=== PATIENT | female | born 1930 | race Caucasian/White ===

== ENCOUNTER 2016-12-18 13:53 | Inpatient (IN) | payer MEDICARE, OTHER ==
[~2016-12-18] VITALS: Ht 154.9 cm; Wt 77.5 kg
--- NOTE | 2016-12-18 14:04 | ERA ---
ER Documentation Chief Complaint Date/Time DATE: 12/18/16 TIME: 14:04 Chief Complaint BROUGHT IN VIA PRIVATE AMBULANCE FROM SNF DUE TO LOW HGB HPI The patient is a 86-year-old female, presenting to the ER because of low hemoglobin. She is unable to provide history, the history is obtained from lock tender, fdc notes, the daughter who later came to the ER. She has history of bloody stool from the fdc. She does not appear to have any chest pain, dyspnea, abdominal pain, vomiting Past medical history: Chronic respiratory failure, dysphagia, history of CVA, dyslipidemia, hypertension, hypothyroidism, atrial fibrillation Past surgical history: Tracheostomy, G-tube ROS All systems reviewed and are negative except as per history of present illness. Medications Home Meds Reported Medications Lansoprazole* (Lansoprazole*) 30 Mg Capsule.dr, 30 MG GTB DAILY, CAP 12/18/16 Chlorhexidine Gluconate (Peridex) 473 Ml Mouthwash, 15 ML MM Q12H, BOTTLE 12/18/16 Acetaminophen* (Acetaminophen*) 650 Mg Tablet, 650 MG GTB Q6H Y for MILD DISCOMFORT, #30 TAB 12/18/16 Bisacodyl* (Bisacodyl*) 10 Mg Supp, 10 MG KY Q2D, SUPP 12/18/16 Sod Phosphate/Sod Biphosphate* (Fleet* Enema Pediatric) 66.6 Ml Soln, 66.6 ML KY Q3D Y for CONSTIPATION, ENEMA 12/18/16 Labetalol Hcl* (Labetalol Hcl*) 100 Mg Tablet, 50 MG GTB Q6H, TAB 12/18/16 Metoprolol Tartrate* (Lopressor*) 50 Mg Tab, 50 MG GTB BID, #60 TAB 12/18/16 Magnesium Hydroxide* (Milk Of Magnesia*) 400 Mg/5 Ml Oral.susp, 30 ML GTB DAILY , ML 12/18/16 Losartan Potassium* (Losartan Potassium*) 100 Mg Tablet, 100 MG GTB DAILY, TAB 12/18/16 Levothyroxine Sodium* (Levothyroxine Sodium*) 125 Mcg Tablet, 125 MCG GTB BEFORE BREAKFAST, #30 TAB 12/18/16 Furosemide* (Furosemide*) 40 Mg Tablet, 40 MG GTB BID, TAB 12/18/16 Diltiazem Hcl* (Cardizem SR*) 60 Mg Capsr, 60 MG PO BID, #60 CAP 12/18/16 Digoxin* (Digox*) 125 Mcg Tablet, 0.125 MG GTB Q48H, TAB 12/18/16 Calcium Carbonate (NATURAL CALCIUM) 500 Mg Tablet, 500 MG GTB Q24, TAB 12/18/16 Atorvastatin* (Atorvastatin*) 40 Mg Tablet, 40 MG GTB QHS, #30 TAB 12/18/16 Apixaban* (Eliquis*) 5 Mg Tablet, 5 MG GTB BID, TAB 12/18/16 Ondansetron Hcl* (Zofran*) 4 Mg Tab, 4 MG GTB Q6H Y for NAUSEA AND OR VOMITING, TAB 12/18/16 Spironolactone* (Aldactone*) 25 Mg Tablet, 25 MG GTB BID, #60 TAB 12/18/16 Allergies Allergies: Coded Allergies: lovastatin (Verified Allergy, Unknown, 12/18/16) midazolam (Verified Allergy, Unknown, 12/18/16) zolpidem (Verified Allergy, Unknown, 12/18/16) Physical Exam Vitals Vital Signs Date Time Temp Pulse Resp B/P Pulse Ox O2 Delivery O2 Flow Rate FiO2 12/18/16 17:37 79 12 99 40 12/18/16 16:42 98.9 84 18 154/76 99 Mechanical Ventilator 12/18/16 16:02 80 17 99 40 12/18/16 14:40 40 12/18/16 14:00 83 12 97 50 12/18/16 13:54 99.2 89 18 146/78 97 Physical Exam Const: No acute distress. Head: Atraumatic. Eyes: Normal Conjunctiva. ENT: Normal External Ears, Nose and Mouth. Neck: Full range of motion. No meningismus. Resp: Clear to auscultation anteriorly and laterally Cardio: Irregularly irregular Abd: Soft, non distended, normal bowel sounds, non tender. G-tube Skin: No petechiae or rashes. Back: No midline or flank tenderness. Ext: No cyanosis, or edema. Neur: Unable to perform due to condition Psych: Unable to perform due to condition Result Diagram: 12/18/16 1415 12/18/16 1415 Results 24 hrs Laboratory Tests Test 12/18/16 14:05 12/18/16 14:15 Arterial Blood HCO3 27.3mmol/L Arterial Blood Base Excess 3.4mmol/L Arterial Blood Oxygen Saturation 98.0mmHG Brant Test ACCEPTAB Arterial Blood Gas Puncture Site Right Radial Arterial Blood Carboxyhemoglobin 0% Arterial Blood Date Drawn 12/18/2016 2:18:19 PM Arterial Blood Methemoglobin 0.3% Arterial Blood pCO2 (Temp correct) 38.7mmhg Arterial Blood pH (Temp corrected) 7.466 Arterial Blood pO2 (Temp corrected) 111.0mmHG Blood Gas A-a O2 Differential 202.0mmHg Blood Gas Actual Respiration Rate 12 Blood Gas Low PEEP Setting 5.0cmH2O Blood Gas Modality VENT - AC Blood Gas Notified Time 12/18/2016 2:35:01 PM Blood Gas Notified Whom EARL WILKINSON Blood Gas Respiration Rate 12.0 Blood Gas Specimen Source Blood arterial Blood Gas Temperature 37.0C Blood Gas Tidal Volume 450.0mL FiO2 50.0% Oxyhemoglobin Percent 97.7% Total Hemoglobin 9.4g/dl Activated Partial Thromboplast Time 42.6Sec Alanine Aminotransferase (ALT/SGPT) 25IU/L Albumin 3.5g/dl Albumin/Globulin Ratio 0.81 Alkaline Phosphatase 96IU/L Anion Gap 15 Aspartate Amino Transf (AST/SGOT) 28IU/L Basophils # 0.010^3/ul Basophils % 0.2% Blood Urea Nitrogen 43mg/dl Calcium Level 9.0mg/dl Carbon Dioxide Level 30mmol/L Chloride Level 96mmol/L Creatinine 0.70mg/dl Direct Bilirubin 0.00mg/dl Eosinophils # 0.210^3/ul Eosinophils % 1.4% Globulin 4.30g/dl Glucose Level 105mg/dl Hematocrit 24.1% Hemoglobin 7.6g/dl INR International Normalized Ratio 2.43 Indirect Bilirubin 0.7mg/dl Lymphocytes # 1.110^3/ul Lymphocytes % 8.2% Mean Corpuscular Hemoglobin 28.8pg Mean Corpuscular Hemoglobin Concent 31.5g/dl Mean Corpuscular Volume 91.3fl Mean Platelet Volume 10.1fl Monocytes # 0.410^3/ul Monocytes % 3.2% Neutrophils # 11.310^3/ul Neutrophils % 86.5% Nucleated Red Blood Cells # 0.010^3/ul Nucleated Red Blood Cells % 0.2/100WBC Platelet Count 77360^3/UL Potassium Level 5.2mmol/L Prothrombin Time 26.7Sec Prothrombin Time Ratio 2.1 Red Blood Count 2.6410^6/ul Red Cell Distribution Width 23.9% Sodium Level 136mmol/L Total Bilirubin 0.7mg/dl Total Protein 7.8g/dl White Blood Count 13.110^3/ul Procedures/[place] [id number] Radiology Main Line: [phone] DIAGNOSTIC IMAGING REPORT Patient: DIVINA WHITE : 1930 Age: 86 Sex: F MR #: [id number] DOS: 12/18/16 0000 Ordering MD: JESSICA SALINAS MD Location: E/R Room/Bed: PROCEDURE: XR Chest. CLINICAL INDICATION: cough TECHNIQUE: Single frontal chest x-ray. COMPARISON: 11/25/2016 FINDINGS: Tracheostomy tube is in place unchanged. . Cardiomegaly with hilar vascular congestion and mild perihilar and basilar edema has slightly worsened. Possible small bilateral pleural effusions are present.. Calcific atherosclerosis of the aorta is present.. The osseous structures are intact. IMPRESSION: Cardiomegaly with slightly worsened congestive heart failure and mild edema. Small bilateral pleural effusions. Tracheostomy tube in place.. RPTAT: VV .Nader Yun MD, MD Date Time Electronically viewed and signed by .Nader Yun MD, MD on 12/18/2016 15:17 .L/ CC: JESSICA SALINAS MD EKG: Read by emergency physician Rate/Rhythm: Atrial fibrillation 93 beats/min QRS, ST, T-waves: No ST elevation, no T inversion, nonspecific ST and T abnormality Impression: Abnormal EKG MEDICAL MAKING DECISION: The patient is a 86-year-old female, presenting with acute GI bleed. She was treated with 2 units of packed red blood cell. The differential diagnoses considered include but are not limited to gastritis, peptic ulcer disease, esophageal varices, Alicia-Torers tear., carcinoma, polyp , hemorrhoid, fissure, diverticulosis, angiodysplasia. Departure Diagnosis: Primary Impression: Acute GI bleeding Condition: Stable Comments I discussed the findings with the patient. I discussed the patient with her physician Dr. Sanches. who was made aware of the lab, the treatment, the patient condition. The patient is admitted to [facility] at 4 PM JESSICA SALINAS MD Dec 18, 2016 14:04
[2016-12-18 14:32] LABS: ADD SCAN DIFF NO
[2016-12-18 14:35] LABS: Allen Test ACCEPTAB; Arterial Base Excess 3.4 mmol/L (-3.0-3); Arterial COHb 0 % (0.0-3.0); Arterial Fraction of Oxyhgb 97.7 % (93.0-99.0); Arterial HCO3 27.3 mmol/L (22.0-26.0); Arterial MetHb 0.3 % (0.0-1.5); Arterial Total Hemglobin 9.4 g/dl (12.0-18.0); MODE VENT - AC
[2016-12-18 14:36] LABS: ABNORMAL IP MESSAGE 1; BASOPHILS % 0.2 % (0.0-2.0); EOSINOPHILS # 0.2 10^3/ul (0.0-0.5); EOSINOPHILS % 1.4 % (0.0-7.0); HEMATOCRIT 24.1 % (37.0-47.0); HEMOGLOBIN 7.6 g/dl (12.0-16.0); LYMPHOCYTES # 1.1 10^3/ul (0.8-2.9); LYMPHOCYTES % 8.2 % (15.0-51.0); MEAN CORPUSCULAR HEMOGLOBIN 28.8 pg (29.0-33.0); MEAN CORPUSCULAR HGB CONC 31.5 g/dl (32.0-37.0); MEAN CORPUSCULAR VOLUME 91.3 fl (82.0-101.0); MEAN PLATELET VOLUME 10.1 fl (7.4-10.4); MONOCYTE # 0.4 10^3/ul (0.3-0.9); MONOCYTES % 3.2 % (0.0-11.0); NEUTROPHIL # 11.3 10^3/ul (1.6-7.5); NEUTROPHILS % 86.5 % (39.0-77.0); NUCLEATED RED BLOOD CELLS% 0.2 /100WBC (0.0-0.0); PLATELET COUNT 238 10^3/UL (140-415); RED BLOOD COUNT 2.64 10^6/ul (4.20-5.40); RED CELL DISTRIBUTION WIDTH 23.9 % (11.5-14.5); WHITE BLOOD COUNT 13.1 10^3/ul (4.8-10.8)
[2016-12-18 14:44] LABS: ALBUMIN 3.5 g/dl (3.3-4.9); INR 2.43; PROTIME 26.7 Sec (12.2-14.2); PT RATIO 2.1
[2016-12-18 14:45] LABS: PARTIAL THROMBOPLASTIN TIME 42.6 Sec (25.0-35.0); POTASSIUM 5.2 mmol/L (3.5-5.1)
[2016-12-18 14:47] LABS: ALBUMIN/GLOBULIN RATIO 0.81; BILIRUBIN,INDIRECT 0.7 mg/dl (0-1.1); BILIRUBIN,TOTAL 0.7 mg/dl (0.2-1.3); CREATININE 0.7 mg/dl (0.44-1.00); TOTAL PROTEIN 7.8 g/dl (6.1-8.1)
--- NOTE | 2016-12-18 15:17 | RADRPT ---
PROCEDURE: XR Chest. CLINICAL INDICATION: cough TECHNIQUE: Single frontal chest x-ray. COMPARISON: 11/25/2016 FINDINGS: Tracheostomy tube is in place unchanged. . Cardiomegaly with hilar vascular congestion and mild per ihilar and basilar edema has slightly worsened. Possible small bilateral pleural effusions are pres ent.. Calcific atherosclerosis of the aorta is present.. The osseous structures are intact. IMPRESSION: Cardiomegaly with slightly worsened congestive heart failure and mild edema. Small bilateral pleural effusions. Tracheostomy tube in place.. RPTAT: VV .Nader Yun MD, Date Time Electronically viewed and signed by .Nader Yun MD, on 12/18/2016 15:17 .L/
[2016-12-18] MEDS ORDERED: SPIR25TA GTB (16:13)
[2016-12-18] MEDS ORDERED: ONDA-43 GTB (16:13)
[2016-12-18] MEDS ORDERED: APIX5TAB GTB (16:14)
[2016-12-18] MEDS ORDERED: ATOR40TA68 GTB (16:15)
[2016-12-18] MEDS ORDERED: CALC500T79 GTB (16:19)
[2016-12-18] MEDS ORDERED: DIGO125T19 GTB (16:21)
[2016-12-18] MEDS ORDERED: CARSR60 PO (16:22)
[2016-12-18] MEDS ORDERED: FURO40TA4 GTB (16:23)
[2016-12-18] MEDS ORDERED: LEVO125T75 GTB (16:26)
[2016-12-18] MEDS ORDERED: MAGN400O4 GTB (16:27)
[2016-12-18] MEDS ORDERED: LOSA100T7 GTB (16:27)
[2016-12-18] MEDS ORDERED: METO-429 GTB (16:28)
[2016-12-18] MEDS ORDERED: LABE100T3 GTB (17:11)
[2016-12-18] MEDS ORDERED: FLEETPED PR (17:21)
[2016-12-18] MEDS ORDERED: DULR PR (17:22)
[2016-12-18] MEDS ORDERED: ACET-2047 GTB (17:24)
[2016-12-18] MEDS ORDERED: CHLO473M4 MM (17:40)
[2016-12-18] MEDS ORDERED: LANS30CA GTB (17:41)
[2016-12-18 21:30] VITALS: TEMP 98
[2016-12-18 21:50] VITALS: RESP 16
[2016-12-18 22:00] VITALS: Ht 154.9 cm; Wt 77.5 kg
[2016-12-18 22:14] VITALS: PULSE 70
[2016-12-18 22:24] VITALS: BP 159/69; RESP 18
[2016-12-18] MEDS ORDERED: ONDANSETRON 4 MG TAB GTB PRN (23:00)
[2016-12-18] MEDS ORDERED: NA PHOSPHATE/BIPHOS 66.6 ML ENEMA PR PRN (23:00)
[2016-12-18 23:15] VITALS: RESP 14
[2016-12-18 23:47] VITALS: BP 166/73; RESP 18
[2016-12-19] VITALS (24 sets, daily range): BP systolic 135–178; BP diastolic 60–84; PULSE 70–84; RESP 14–24
[2016-12-19] MEDS: BISACODYL 10 MG SUPP PR SCH (00:03)
[2016-12-19] MEDS: CHLORHEXIDINE GLUCONATE 15 ML UD CUP MM SCH ×3 (00:03→23:45)
[2016-12-19] MEDS: LABETALOL 100 MG TAB GTB SCH ×5 (01:20→23:46)
[2016-12-19] MEDS: VANCOMYCIN HCL 250 MG/5ML POSYG PO SCH ×5 (01:50→23:49)
[2016-12-19] MEDS: CALCIUM CARBONATE 1.25 GM TAB GTB SCH ×2 (05:58→17:26)
[2016-12-19] MEDS: FUROSEMIDE 40 MG TAB GTB SCH ×2 (05:59→17:26)
[2016-12-19] MEDS: LEVOTHYROXINE 125 MCG TAB GTB SCH (05:59)
--- NOTE | 2016-12-19 06:15 | HP ---
DATE OF ADMISSION: 12/18/2016 CHIEF COMPLAINT: GI bleed, anemia. HISTORY OF PRESENT ILLNESS: This is an 86-year-old female with a past medical history of ventilator dependent respiratory failure, history of dysphagia, status post PEG, history of chronic encephalop athy, history of CVA, history of dyslipidemia, hypertension, hypothyroidism, and atrial fibrillation who presents to [facility] Emergency Room for evaluation of anemia. The patient was recen y admitted to [facility] approximately 3 weeks ago. At that time, the patient was brought in from an outside hospital due to acute CVA, respiratory failure, and sepsis. The patient was eventually transferred to [facility], a subacute facility. While at [facility], the p anna is being treated for zoster, Clostridium difficile colitis, and urinary tract infection. The patient also was noted in recent lab draws to be severely anemic with hemoglobin levels of 7. The patient had guaiac stools positive and as a result was transferred to [facility] f or evaluation. Upon arrival, the patient was nonverbal, and she was hypertensive. The patient's la boratory data showed a white count of 13.1, hemoglobin 7.6. The patient, in the emergency room, had a chest x-ray which showed bilateral pleural effusions and worsening CHF and mild edema. In the em ergency room, the patient was typed and crossed and started on transfusion of 2 units of PRBC. Ther e is no recent report of hemoptysis. No rashes. No other events noted. PAST MEDICAL HISTORY: As stated above, history of chronic respiratory failure, history of dysphagia , history of encephalopathy, history of CVA, dyslipidemia, hypertension, atrial fibrillation. PAST SURGICAL HISTORY: Status post trach and PEG. MEDICATIONS: The patient medications have been reviewed and reconciled. FAMILY HISTORY: Noncontributory. SOCIAL HISTORY: Lives at a subacute facility. REVIEW OF SYSTEMS: Unable to do adequate review of systems as the patient is altered. Pertinent po sitives obtained by reviewing medical records, speaking to hospital staff, as stated in HPI, otherwi se negative. PHYSICAL EXAMINATION: VITAL SIGNS: Blood pressure is 159/69, respiration 18, pulse 85, temperature 98.5. HEENT: Head is normocephalic. NECK: Shows trach. HEART: Irregularly irregular. LUNGS: Show diminished breath sounds at base. Positive rhonchi and crackles. ABDOMEN: Soft, nontender, positive ____, positive PEG. EXTREMITIES: Negative for clubbing, cyanosis. Positive edema. MUSCULOSKELETAL: The patient has resolving shingles rash in her groin. NEUROLOGIC: The patient is obtunded, limited exam. LABORATORY DATA: Shows sodium 136, potassium 5.2, chloride 96, BUN 23, creatinine 0.70. White coun t 13.1, hemoglobin 7.6, hematocrit 24.1, platelet count 238. IMAGING STUDIES: Chest x-ray shows bilateral pleural effusion and slightly worse CHF. ASSESSMENT AND PLAN: This is an 86-year-old female who presents with 1. Acute lower gastrointestinal bleed. The patient's stools were noted to be guaiac positive at an outside facility, and she is anemic. Plan at this point is to type and cross, transfuse 2 units of PRBC. We will hold the patient's anticoagulation, Eliquis. We will place a GI consult with Dr. Dawna shahid for evaluation and monitor closely. 2. Sepsis secondary to recent urinary tract infection and Clostridium difficile colitis. The patie nt will continue oral vancomycin. We will repeat urine culture and blood cultures. We will conside r infectious disease consult for evaluation. 3. Shingles. The patient is status post Valtrex. 4. Ventilator dependent respiratory failure. The patient's vent settings have been reviewed. Plea se see pulmonary consult for evaluation. We will monitor closely. 5. Dysphagia status post PEG. The patient will be resumed on tube feeding. 6. Atrial fibrillation. The patient's rate is currently controlled. Continue metoprolol, diltiaze m, and digoxin. We will hold anticoagulation in the setting of gastrointestinal bleed. We will fol low up with cardiology. 7. Congestive heart failure. The patient is currently decompensated. Chest x-ray shows pulmonary congestion. We will resume diuretic therapy. We will follow up with cardiology for recommendations . 8. 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 Continue to monitor. 9. History of cerebrovascular accident. Continue medical management. 10. Hypertension. Continue current blood pressure regimen. 11. Hypothyroidism. Continue Synthroid. 12. Gastrointestinal and deep venous thrombosis prophylaxis. Continue proton pump inhibitor and se quential leg squeezers. 13. Mild hyperkalemia. Etiology is possibly secondary to Aldactone. We will discontinue at this t crow and monitor. 14. Azotemia. Etiology may be secondary to recent GI bleed and her diuretic therapy. We will cont inue to monitor. 15. Anemia secondary to gastrointestinal bleed as stated above. The patient will receive blood tra nsfusion. We will monitor hemoglobin and hematocrit levels. Please note, I spent up to 25 minutes of time face to face with the patient's daughter, discussing c ode status. The patient is FULL CODE. Dictated By: NIRMALA RODRIGUEZ/TONIO Conf#: [id number] DID#: [id number]
[2016-12-19 07:06] LABS: ADD UMIC YES; URINE BILIRUBIN (Dip) NEGATIVE (NEGATIVE); URINE BLOOD (Dip) 3+ (NEGATIVE); URINE COLOR LT. YELLOW (YELLOW); URINE GLUCOSE (Dip) NEGATIVE (NEGATIVE); URINE KETONES (Dip) NEGATIVE (NEGATIVE); URINE LEUKOCYTE ESTERASE (Dip) 1+ (NEGATIVE); URINE NITRITE (Dip) NEGATIVE (NEGATIVE); URINE TOTAL PROTEIN (Dip) NEGATIVE (NEGATIVE); URINE UROBILINOGEN (Dip) 0.2 E.U./dL (0.1-1.0)
[2016-12-19 07:20] LABS: PROTEIN URINE 10.9 mg/dl (0.0-9.9)
[2016-12-19 07:26] LABS: BACTERIA,URINE MODERATE
[2016-12-19 07:30] LABS: ADD SCAN DIFF NO; BASOPHILS % 0.5 % (0.0-2.0); EOSINOPHILS # 0.2 10^3/ul (0.0-0.5); EOSINOPHILS % 2.8 % (0.0-7.0); HEMATOCRIT 29.9 % (37.0-47.0); HEMOGLOBIN 9.5 g/dl (12.0-16.0); LYMPHOCYTES # 0.9 10^3/ul (0.8-2.9); LYMPHOCYTES % 11.7 % (15.0-51.0); MEAN CORPUSCULAR HEMOGLOBIN 28.9 pg (29.0-33.0); MEAN CORPUSCULAR HGB CONC 31.8 g/dl (32.0-37.0); MEAN CORPUSCULAR VOLUME 90.9 fl (82.0-101.0); MEAN PLATELET VOLUME 10.3 fl (7.4-10.4); MONOCYTE # 0.4 10^3/ul (0.3-0.9); MONOCYTES % 5.2 % (0.0-11.0); NEUTROPHIL # 6.2 10^3/ul (1.6-7.5); NEUTROPHILS % 79.5 % (39.0-77.0); NUCLEATED RED BLOOD CELLS # 0.1 10^3/ul (0.0-0.0); NUCLEATED RED BLOOD CELLS% 0.6 /100WBC (0.0-0.0); PLATELET COUNT 191 10^3/UL (140-415); RED BLOOD COUNT 3.29 10^6/ul (4.20-5.40); RED CELL DISTRIBUTION WIDTH 21.3 % (11.5-14.5); WHITE BLOOD COUNT 7.8 10^3/ul (4.8-10.8)
[2016-12-19 07:37] LABS: INR 2.11; PROTIME 23.9 Sec (12.2-14.2); PT RATIO 1.9
[2016-12-19 07:44] LABS: POTASSIUM 4.4 mmol/L (3.5-5.1)
[2016-12-19 07:47] LABS: CALCIUM 8.8 mg/dl (8.4-10.2); CREATININE 0.57 mg/dl (0.44-1.00); PHOSPHORUS 2.6 mg/dl (2.5-4.9)
[2016-12-19 07:48] LABS: MAGNESIUM 1.8 mg/dl (1.7-2.5)
[2016-12-19] MEDS: MAGNESIUM HYDROXIDE 30ML CUP GTB SCH (09:08)
[2016-12-19] MEDS: LANSOPRAZOLE 30 MG CAP GTB SCH (09:08)
[2016-12-19] MEDS: SPIRONOLACTONE 25 MG TAB GTB SCH ×2 (09:09→22:05)
[2016-12-19] MEDS: LOSARTAN 50 MG TAB GTB SCH (09:09)
[2016-12-19] MEDS: METOPROLOL 50 MG TAB GTB SCH ×2 (09:09→22:06)
[2016-12-19] MEDS: DILTIAZEM (SR) 60 MG CAP PO SCH ×2 (09:10→22:05)
--- NOTE | 2016-12-19 09:56 | CONS ---
DATE OF ADMISSION: 12/18/2016 DATE OF CONSULTATION: 12/19/2016 TYPE OF CONSULTATION: Cardiology. REFERRING PHYSICIAN: Dr. Maravilla REASON FOR CONSULTATION: Atrial fibrillation, congestive heart failure. CHIEF COMPLAINT: GI bleed and anemia. HISTORY OF PRESENT ILLNESS: Thank you for this referral. History was obtained from extensive revie w of the old chart, discussion with Dr. [facility], discussion with the staff. The silvia ent himself cannot provide any history to me. The patient is also known to me from previous admissi ons to the hospital at [place]. This an unfortunate 86-year-old female with history of respiratory fa ilure, status post tracheostomy, history of CVA and atrial fibrillation who was transferred to our [facility] because of severe anemia and possible gastrointestinal bleed. The patient has had a recent complicated course including CVA, sepsis, respiratory failure, required tracheostomy. She also has atrial fibrillation. She has been tolerating the anticoagulation well; however, was brought in thi s time because of severe anemia and possible gastrointestinal bleed. The patient's blood pressure h as remained stable to high and not been hypotensive. Hemoglobin has been as low as 7.6. Chest x-ray also has shown bilateral pleural effusion and worsening CHF and mild edema. The patient has received transfusion. No other history was obtained from the patient. PAST MEDICAL HISTORY: As above plus history of respiratory failure, status post tracheostomy, vent dependent, dysphagia status post PEG placement, history of encephalopathy, history of CVA, atrial fi brillation, dyslipidemia, hypertension, history of mild cardiomyopathy, ejection fraction last echo cardiogram was 50%, but also moderate aortic insufficiency. PAST SURGICAL HISTORY: Status post trach and PEG placement. MEDICATIONS: As per medical reconciliation, personally reviewed. FAMILY HISTORY: No reported early coronary artery disease. SOCIAL HISTORY: The patient lives in a subacute facility now. No active tobacco, alcohol or drug a buse. REVIEW OF SYSTEMS: The patient is bedbound. Otherwise, as above, the best I could obtain. PHYSICAL EXAMINATION: VITAL SIGNS: Temperature 98.4, heart rate of 77, blood pressure 157/67, respiration rate of 18, sat urating 98%. HEENT: Normocephalic, atraumatic. GENERAL: Obese female in no acute distress. Status post tracheostomy. EYES: Pupils equal and round. NECK: Supple, tracheostomy on the vent. CARDIOVASCULAR: Irregularly irregular, systolic murmur, diastolic murmur. PULMONARY: With mild rhonchi, diffuse. GASTROINTESTINAL: Soft, nontender, obese. EXTREMITIES: Trivial edema. NEUROLOGIC: Does not answer my questions. PSYCHIATRIC: Appears to be calm. DERMATOLOGIC: There are multiple ecchymoses with no active bleeding sign. IMAGING: Chest x-ray showed cardiomegaly, slightly worsening congestive heart failure, mild edema. LABORATORY DATA: Shows WBC of 7.8, hemoglobin of 7.6 on admission, after transfusion is 9.5, platel et 191. MCV is 91.3. Sodium 137, potassium 4.4, BUN of 34, creatinine 0.57, glucose of 87. Magnes ium is 1.8. Review of the old chart showed echocardiogram on November 05, which was personally revie sat, showed ejection fraction about 50%, biatrial enlargement. There is moderate aortic insufficien cy noted. PA pressure was elevated at 67 mmHg with dilated IVC. EKG was personally reviewed again which showed atrial fibrillation. Nonspecific ST abnormalities. Poor R-wave progression, cannot ru le out anterior infarct. ASSESSMENT AND PLAN: Atrial fibrillation, chronic. RECOMMENDATIONS: 1. For now at least anticoagulation is on hold due to concern about severe anemia and bleeding unti l GI workup is done and the patient is cleared by GI that can tolerate anticoagulation. has b een positive as well. 2. Hypoxemic respiratory failure, status post tracheostomy, vent dependent. 3. Severe anemia. 4. GI bleed with positive stool. 5. Congestive heart failure and fluid overload secondary to diastolic dysfunction and valvular hear t disease and fluid overload. 6. Hypertension. 7. History of cerebrovascular accident. 8. Thyroid disorder. 9. Electrolyte abnormalities. 10. Azotemia. MEDICATIONS: Anticoagulation on hold for now. We will continue with the heart rate controlled with combination o f 1. Digoxin 0.125 every other day. 2. Cardizem 60 p.o. b.i.d. 3. Metoprolol 50 b.i.d. 4. Losartan will be continued as well for afterload reduction given her aortic insufficiency. 5. Diuretic with Aldactone will be continued. 6. Lasix will be continued with p.o. 40 b.i.d. for now and adjust it as needed. GI workup as per Dr. [facility]. We will continue to monitor on telemetry. Electrolytes will be corrected as needed. We will continue to follow along with you. Thank you for this referra l. Dictated By: LETICIA SHAW/TONIO Conf#: [id number] DID#: [id number] CC: NIRMALA MARAVILLA DO;*EndCC*
--- NOTE | 2016-12-19 10:06 | PN ---
DATE: 12/19/2016 SUBJECTIVE: The patient yesterday was admitted to [facility], was transfused 2 un its PRBC without any complications. No acute events overnight. No hemoptysis, hematemesis or hemat ochezia. OBJECTIVE: VITAL SIGNS: Blood pressure 157/67, respiration 18, pulse 77, temperature 98.4. HEENT: Head is normocephalic. NECK: Supple. HEART: Regular rate. LUNGS: Show diminished breath sounds at the base. ABDOMEN: Soft, nontender to palpation. Positive PEG. EXTREMITIES: Negative for clubbing, cyanosis. No edema. DERMATOLOGIC: No rashes. MUSCULOSKELETAL: No joint effusions. NEUROLOGIC: No change in exam, limited due to lack of patient cooperation. MEDICATIONS: The patient's medications have been reviewed. LABORATORY DATA: Shows a white count 7.8, hemoglobin 9.5, hematocrit 29.9, platelet count is 190. S odium 137, potassium 4.4, chloride 99, BUN 34, creatinine 0.56. INR is 2.11. The patient's urinaly sis shows moderate bacteria, few yeast, 5 to 10 WBCs, 5 to 10 RBCs. IMAGING: Chest x-ray as stated in HPI. ASSESSMENT AND PLAN: 1. Acute lower gastrointestinal bleeding. The patient is status post two units of PRBC with approp riate response. The patient's stool was positive for guaiac blood. The patient was on anticoagulat ion, Eliquis, which is currently being held. At this point, we will continue to monitor hemoglobin and hematocrit levels. We will also place a GI consult with Dr. Rai for further evaluation. We will monitor closely. 2. Atrial fibrillation. The patient is currently rate controlled. We will continue current medica l management with Toprol, diltiazem and Digoxin. The patient's anticoagulation has been held. A ca rdiology consult was placed with Dr. Moya for evaluation of long-term anticoagulation requirements given the patient's history of gastrointestinal bleed. We will follow up his recommendations. 3. Sepsis secondary to recent urinary tract infection and Clostridium difficile colitis. The patie nt is on oral vancomycin. Repeat stool culture for C. difficile. Blood cultures, urine cultures rogers ve been sent. We will place an infectious disease consult with Dr. Martin for evaluation. 4. Ventilator dependent respiratory failure. Vent settings have been reviewed. ABG has been revie wed. Pulmonary consult has been placed for evaluation. 5. Dysphagia. Status post PEG. Resume tube feeds. 6. Acute systolic, diastolic heart failure. The patient is currently decompensated. Chest x-ray s hows pulmonary congestion. We will continue diuretic therapy, monitor. Follow up with Cardiology f or recommendations. 7. Acute on chronic encephalopathy, etiology secondary to toxic metabolic. The patient's mental st atus appears to be returning to baseline. We will continue supportive care, renally dose all meds. 8. History of cerebrovascular accident. Continue medical management. 9. Hypertension. Continue current blood pressure regimen. 10. Hypothyroidism. Continue Synthroid. 11. Mild hyperkalemia, resolved. 12. Azotemia renal insufficiency. Etiology may be secondary to recent GI bleed and diuretic therap y. Patient's azotemia has improved. We will continue to monitor. 13. Anemia secondary to gastrointestinal bleed as stated above. Continue to monitor H and H levels . 14. Shingles. The patient is status post Valtrex. Continue to monitor. 15. GI and DVT prophylaxis. Continue PPI and sequential leg squeezers. Dictated By: NIRMALA TAVAREZ DO NR/NTS Conf#: [id number] DID#: [id number]
--- NOTE | 2016-12-19 11:17 | CONS ---
DATE OF ADMISSION: 12/18/2016 DATE OF CONSULTATION: 12/19/2016 TYPE OF CONSULTATION: Infectious Disease. REASON FOR CONSULTATION: Antibiotic management. HISTORY OF PRESENT ILLNESS: Melissa Lynch is an 86-year-old female who comes in with GI bleed and anemia and is being seen for antibiotic management. Her past problems include: 1. Ventilator-dependent respiratory failure. 2. History of dysphagia status post G-tube placement. 3. Chronic encephalopathy. 4. Cerebrovascular accident. 5. Dyslipidemia. 6. Hypertension. 7. Hypothyroidism. 8. Atrial fibrillation. The patient presents now with anemia. She was recently admitted to [place] approximately 3 weeks ago following an acute CVA, respiratory failure and sepsis. She was sent to a subacute facility and wa s being treated for zoster, C. difficile colitis and urinary tract infection. She was noted to be s everely anemic with hemoglobin of 7. Guaiac stools were positive. She was transferred to [facility] for evaluation. The patient is nonverbal and was hypertensive, her white count was 13.1, H and H 7.6 and 24.1, platelet count 238,000. BUN and creatinine 23/0.7. PAST MEDICAL HISTORY: Operations as outlined. FAMILY HISTORY: Noncontributory. SOCIAL HISTORY: She lives in a subacute. She does not smoke, drink or abuse drugs. ALLERGIES: NONE TO PENICILLIN, SULFA OR FOODS. MEDICATIONS: Per chart. REVIEW OF SYSTEMS: As per HPI. PHYSICAL EXAMINATION: GENERAL: The patient is a chronically ill-appearing female who is lethargic, encephalopathic. VITAL SIGNS: Stable. She is afebrile. SKIN: Without generalized rash. HEENT: Within normal limits. NECK: She has a tracheostomy. HEART: Irregularly irregular rhythm. LUNGS: Decreased breath sounds at both bases with occasional rhonchi and rales. ABDOMEN: Soft, nontender. She has a G-tube in place. EXTREMITIES: Without cyanosis, clubbing, or edema. She has 1+ edema. RECTAL/GENITAL: Exam is deferred, although she has shingles in the groin area. NEUROLOGIC: The patient is obtunded, able to move all extremities. IMPRESSION AND PLAN: She comes in with acute lower GI bleed and Dr. Rai is to evaluate. She has sepsis secondary to recent urinary tract infection and Clostridium difficile. She is on oral vanco mycin. A urine culture and blood cultures were repeated. She is status post Valtrex for shingles. Clostridium difficile is currently negative. We will continue on her current therapy. I will dict ate my findings to Dr. Maravilla. Dictated By: EDUARD VELA MD, JD/TONIO Conf#: [id number] DID#: [id number]
--- NOTE | 2016-12-19 11:42 | CONS ---
Date/Time of Note Date/Time of Note DATE: 12/19/16 TIME: 11:34 Assessment/Plan Assessment/Plan Additional Assessment/Plan Ventilator settings; AC of 12, tidal volume 450, PEEP of 5, 50% FiO2. Chest x-ray was reviewed from yesterday which is showing bilateral pneumonia. Assessment recommendations; 1. Patient admitted for anemia and discovered to have bilateral pneumonia as well. Currently on appropriate antibiotic regimen. 2. History of CHF, hypertension, chronic respiratory failure and atrial fibrillation. All appear fairly stable. 3. History of hypothyroidism. 4. History of possibly anoxic brain injury patient currently awake but does not respond to any commands which is her underlying mental status. Continue current treatment. Consultation Date/Type/Reason Admit Date/Time Dec 18, 2016 at 16:05 Date of Consultation: Dec 19, 2016 Type of Consultation: Pulmonary Reason for Consultation Pulmonary consultation obtained for evaluation of chronic respiratory failure. Patient admitted for pneumonia and anemia. Next History presenting; patient is a 86-year-old lady who [facility] with complaints of low hemoglobin as seen on routine CBC. Upon further evaluation a chest x-ray was done which is showing bilateral pneumonia. Patient has a long-standing history of chronic respiratory failure and is ventilator dependent. Due to history of CVA patient is unable to provide any history whatsoever, history was obtained from medical records. Past medical history; 1. Chronic respiratory failure, ventilator dependent. 2. Status post tracheostomy and G-tube placement. 3. History of CVA. 4. Atrial fibrillation. 5. Hypothyroidism. 6. Hypertension. Medications; were reviewed. Allergies; are to lovastatin, midazolam and zolpidem. Next Social history; not available. Family history, occupational history is not available. Next Review of systems; unable to be obtained. General exam; elderly lady, appears overweight. Awake but does not follow any commands. Able to move left upper extremity spontaneously. Currently in no distress. Social History Smoking Status: Unknown if ever smoked Exam/Review of Systems Vital Signs Vitals Vital Signs Date Time Temp Pulse Resp B/P Pulse Ox O2 Delivery O2 Flow Rate FiO2 12/19/16 10:57 97.8 99 18 159/77 79 12/19/16 10:44 50 12/18/16 21:30 Mechanical Ventilator Intake and Output 12/18/16 12/18/16 12/19/16 15:00 23:00 07:00 Intake Total 300 ml Balance 300 ml Exam HEENT exam is; supple neck, JVD difficult to see because of short neck. Tracheostomy in place with clean insertion site. There is a right intraocular lens implant. No neck masses. No thyromegaly. Patient is mostly edentulous. No neck bruits. Chest examination; diminished but clear breath sounds bilaterally. S1-S2 audible, irregular rhythm. Abdomen exam is; protuberant, no organomegaly. G-tube in place. Bowel sounds audible. Extremity exam; no peripheral edema. Pulses 1+ bilaterally. There is no clubbing. [employer] examination; patient is awake, does not follow any commands. Able to move left upper extremity, only spontaneously. Results Result Diagram: 12/19/16 0500 12/19/16 0655 Results 24 hrs Laboratory Tests Test 12/18/16 14:05 12/18/16 14:15 12/18/16 23:50 12/19/16 01:00 Blood Gas Specimen Source Blood arterial Arterial Blood Date Drawn 12/18/2016 2:18:19 PM Arterial Blood pH (Temp corrected) 7.466 H Arterial Blood pCO2 (Temp correct) 38.7 Arterial Blood pO2 (Temp corrected) 111.0 H Arterial Blood HCO3 27.3 H Arterial Blood Base Excess 3.4 H Arterial Blood Oxygen Saturation 98.0 Brant Test ACCEPTAB Arterial Blood Gas Puncture Site Right Radial Arterial Blood Carboxyhemoglobin 0 Arterial Blood Methemoglobin 0.3 Blood Gas A-a O2 Differential 202.0 H Oxyhemoglobin Percent 97.7 Total Hemoglobin 9.4 L Blood Gas Temperature 37.0 Blood Gas Respiration Rate 12.0 Blood Gas Actual Respiration Rate 12 Blood Gas Modality VENT - AC FiO2 50.0 Blood Gas Tidal Volume 450.0 Blood Gas Low PEEP Setting 5.0 Blood Gas Notified Whom EARL WILKINSON Blood Gas Notified Time 12/18/2016 2:35:01 PM White Blood Count 13.1 H Red Blood Count 2.64 #L Hemoglobin 7.6 L Hematocrit 24.1 #L Mean Corpuscular Volume 91.3 Mean Corpuscular Hemoglobin 28.8 L Mean Corpuscular Hemoglobin Concent 31.5 L Red Cell Distribution Width 23.9 H Platelet Count 238 # Mean Platelet Volume 10.1 Neutrophils % 86.5 H Lymphocytes % 8.2 L Monocytes % 3.2 Eosinophils % 1.4 Basophils % 0.2 Nucleated Red Blood Cells % 0.2 H Neutrophils # 11.3 H Lymphocytes # 1.1 Monocytes # 0.4 Eosinophils # 0.2 Basophils # 0.0 Nucleated Red Blood Cells # 0.0 Prothrombin Time 26.7 H Prothrombin Time Ratio 2.1 INR International Normalized Ratio 2.43 Activated Partial Thromboplast Time 42.6 H Sodium Level 136 Potassium Level 5.2 H Chloride Level 96 L Carbon Dioxide Level 30 Anion Gap 15 Blood Urea Nitrogen 43 H Creatinine 0.70 Glucose Level 105 Calcium Level 9.0 Total Bilirubin 0.7 Direct Bilirubin 0.00 Indirect Bilirubin 0.7 Aspartate Amino Transf (AST/SGOT) 28 Alanine Aminotransferase (ALT/SGPT) 25 Alkaline Phosphatase 96 Total Protein 7.8 Albumin 3.5 Globulin 4.30 H Albumin/Globulin Ratio 0.81 Lactic Acid Level 1.2 Urine Color LT. YELLOW Urine Clarity SLIGHTLY CLOUDY Urine pH 7.0 Urine Specific [place] 1.010 Urine Ketones NEGATIVE Urine Nitrite NEGATIVE Urine Bilirubin NEGATIVE Urine Urobilinogen 0.2 E.U./dL Urine Leukocyte Esterase 1+ H Urine Microscopic RBC 5-10 Urine Microscopic WBC 5-10 Urine Epithelial Cells FEW Urine Bacteria MODERATE Urine Yeast FEW Urine Hemoglobin 3+ H Urine Random Creatinine 27.76 Urine Random Sodium 58 Urine Glucose NEGATIVE Urine Total Protein 10.9 H Test 12/19/16 05:00 12/19/16 06:55 White Blood Count 7.8 # Red Blood Count 3.29 #L Hemoglobin 9.5 #L Hematocrit 29.9 #L Mean Corpuscular Volume 90.9 Mean Corpuscular Hemoglobin 28.9 L Mean Corpuscular Hemoglobin Concent 31.8 L Red Cell Distribution Width 21.3 H Platelet Count 191 Mean Platelet Volume 10.3 Neutrophils % 79.5 H Lymphocytes % 11.7 L Monocytes % 5.2 Eosinophils % 2.8 Basophils % 0.5 Nucleated Red Blood Cells % 0.6 H Neutrophils # 6.2 Lymphocytes # 0.9 Monocytes # 0.4 Eosinophils # 0.2 Basophils # 0.0 Nucleated Red Blood Cells # 0.1 H Prothrombin Time 23.9 H Prothrombin Time Ratio 1.9 INR International Normalized Ratio 2.11 Sodium Level 137 Potassium Level 4.4 Chloride Level 99 Carbon Dioxide Level 26 Anion Gap 16 Blood Urea Nitrogen 34 H Creatinine 0.57 Glucose Level 87 Calcium Level 8.8 Phosphorus Level 2.6 Magnesium Level 1.8 Medications Medications Current Medications Acetaminophen (Tylenol Liquid) 650 mg Q6H PRN GTB MILD DISCOMFORT; Start at 23:00 Atorvastatin Calcium (Lipitor) 40 mg QHS GTB ; Start 12/19/16 at 21:00 Bisacodyl (Dulcolax Supp) 10 mg Q2D [place] Last administered on 12/19/16 00:03; Admin Dose 10 MG; Start 12/18/16 at 23:00 Chlorhexidine Gluconate (Peridex) 15 ml Q12H MM Last administered on 12/19/16 00:03; Admin Dose 15 ML; Start 12/18/16 at 23:00 Digoxin (Digoxin) 0.125 mg Q48H GTB ; Start 12/19/16 at 13:00 Diltiazem HCl (Cardizem Sr) 60 mg BID PO Last administered on 12/19/16 09:10; Admin Dose 60 MG; Start 12/19/16 at 09:00 Labetalol HCl (Normodyne) 50 mg Q6H GTB Last administered on 12/19/16 05:58; Admin Dose 50 MG; Start 12/18/16 at 23:00 Lansoprazole (Prevacid) 30 mg DAILY GTB Last administered on 12/19/16 09:08; Admin Dose 30 MG; Start 12/19/16 at 09:00 Losartan Potassium (Cozaar) 100 mg DAILY GTB Last administered on 12/19/16 09: 09; Admin Dose 100 MG; Start 12/19/16 at 09:00 Magnesium Hydroxide (Milk Of Mag) 30 ml DAILY GTB Last administered on 09:08; Admin Dose 30 ML; Start 12/19/16 at 09:00 Metoprolol Tartrate (Lopressor) 50 mg BID GTB Last administered on 12/19/16 09 :09; Admin Dose 50 MG; Start 12/19/16 at 09:00 Ondansetron HCl (Zofran Tab) 4 mg Q6H PRN GTB NAUSEA AND/OR VOMITING; Start at 23:00 Sodium Biphosphate/ Sodium Phosphate (Fleet Enema Pediatric) 66.6 ml Q3D PRN [place] CONSTIPATION; Start 12/18/16 at 23:00 Spironolactone (Aldactone) 25 mg BID GTB Last administered on 12/19/16 09:09; Admin Dose 25 MG; Start 12/19/16 at 09:00 Vancomycin HCl (Vancomycin Oral Syringe) 125 mg Q6 PO Last administered on 12/19 05:57; Admin Dose 125 MG; Start 12/19/16 at 00:00 NICOLAS VASQUEZ Dec 19, 2016 11:42
--- NOTE | 2016-12-19 11:53 | CONS ---
Date/Time of Note Date/Time of Note DATE: 12/19/16 TIME: 11:52 Consultation Date/Type/Reason Admit Date/Time Dec 18, 2016 at 16:05 Date of Consultation: Dec 19, 2016 Type of Consultation: HEMEONC Reason for Consultation ANEMIA Referring Provider: NIRMALA TAVAREZ DO Social History Smoking Status: Unknown if ever smoked Exam/Review of Systems Vital Signs Vitals Vital Signs Date Time Temp Pulse Resp B/P Pulse Ox O2 Delivery O2 Flow Rate FiO2 12/19/16 10:57 97.8 99 18 159/77 79 12/19/16 10:44 50 12/18/16 21:30 Mechanical Ventilator Intake and Output 12/18/16 12/18/16 12/19/16 14:59 22:59 06:59 Intake Total 300 ml Balance 300 ml Results Result Diagram: 12/19/16 0500 12/19/16 0655 Results 24 hrs Laboratory Tests Test 12/18/16 14:05 12/18/16 14:15 12/18/16 23:50 12/19/16 01:00 Blood Gas Specimen Source Blood arterial Arterial Blood Date Drawn 12/18/2016 2:18:19 PM Arterial Blood pH (Temp corrected) 7.466 H Arterial Blood pCO2 (Temp correct) 38.7 Arterial Blood pO2 (Temp corrected) 111.0 H Arterial Blood HCO3 27.3 H Arterial Blood Base Excess 3.4 H Arterial Blood Oxygen Saturation 98.0 Brant Test ACCEPTAB Arterial Blood Gas Puncture Site Right Radial Arterial Blood Carboxyhemoglobin 0 Arterial Blood Methemoglobin 0.3 Blood Gas A-a O2 Differential 202.0 H Oxyhemoglobin Percent 97.7 Total Hemoglobin 9.4 L Blood Gas Temperature 37.0 Blood Gas Respiration Rate 12.0 Blood Gas Actual Respiration Rate 12 Blood Gas Modality VENT - AC FiO2 50.0 Blood Gas Tidal Volume 450.0 Blood Gas Low PEEP Setting 5.0 Blood Gas Notified Whom EARL WILKINSON Blood Gas Notified Time 12/18/2016 2:35:01 PM White Blood Count 13.1 H Red Blood Count 2.64 #L Hemoglobin 7.6 L Hematocrit 24.1 #L Mean Corpuscular Volume 91.3 Mean Corpuscular Hemoglobin 28.8 L Mean Corpuscular Hemoglobin Concent 31.5 L Red Cell Distribution Width 23.9 H Platelet Count 238 # Mean Platelet Volume 10.1 Neutrophils % 86.5 H Lymphocytes % 8.2 L Monocytes % 3.2 Eosinophils % 1.4 Basophils % 0.2 Nucleated Red Blood Cells % 0.2 H Neutrophils # 11.3 H Lymphocytes # 1.1 Monocytes # 0.4 Eosinophils # 0.2 Basophils # 0.0 Nucleated Red Blood Cells # 0.0 Prothrombin Time 26.7 H Prothrombin Time Ratio 2.1 INR International Normalized Ratio 2.43 Activated Partial Thromboplast Time 42.6 H Sodium Level 136 Potassium Level 5.2 H Chloride Level 96 L Carbon Dioxide Level 30 Anion Gap 15 Blood Urea Nitrogen 43 H Creatinine 0.70 Glucose Level 105 Calcium Level 9.0 Total Bilirubin 0.7 Direct Bilirubin 0.00 Indirect Bilirubin 0.7 Aspartate Amino Transf (AST/SGOT) 28 Alanine Aminotransferase (ALT/SGPT) 25 Alkaline Phosphatase 96 Total Protein 7.8 Albumin 3.5 Globulin 4.30 H Albumin/Globulin Ratio 0.81 Lactic Acid Level 1.2 Urine Color LT. YELLOW Urine Clarity SLIGHTLY CLOUDY Urine pH 7.0 Urine Specific [place] 1.010 Urine Ketones NEGATIVE Urine Nitrite NEGATIVE Urine Bilirubin NEGATIVE Urine Urobilinogen 0.2 E.U./dL Urine Leukocyte Esterase 1+ H Urine Microscopic RBC 5-10 Urine Microscopic WBC 5-10 Urine Epithelial Cells FEW Urine Bacteria MODERATE Urine Yeast FEW Urine Hemoglobin 3+ H Urine Random Creatinine 27.76 Urine Random Sodium 58 Urine Glucose NEGATIVE Urine Total Protein 10.9 H Test 12/19/16 05:00 12/19/16 06:55 White Blood Count 7.8 # Red Blood Count 3.29 #L Hemoglobin 9.5 #L Hematocrit 29.9 #L Mean Corpuscular Volume 90.9 Mean Corpuscular Hemoglobin 28.9 L Mean Corpuscular Hemoglobin Concent 31.8 L Red Cell Distribution Width 21.3 H Platelet Count 191 Mean Platelet Volume 10.3 Neutrophils % 79.5 H Lymphocytes % 11.7 L Monocytes % 5.2 Eosinophils % 2.8 Basophils % 0.5 Nucleated Red Blood Cells % 0.6 H Neutrophils # 6.2 Lymphocytes # 0.9 Monocytes # 0.4 Eosinophils # 0.2 Basophils # 0.0 Nucleated Red Blood Cells # 0.1 H Prothrombin Time 23.9 H Prothrombin Time Ratio 1.9 INR International Normalized Ratio 2.11 Sodium Level 137 Potassium Level 4.4 Chloride Level 99 Carbon Dioxide Level 26 Anion Gap 16 Blood Urea Nitrogen 34 H Creatinine 0.57 Glucose Level 87 Calcium Level 8.8 Phosphorus Level 2.6 Magnesium Level 1.8 Medications Medications Current Medications Acetaminophen (Tylenol Liquid) 650 mg Q6H PRN GTB MILD DISCOMFORT; Start at 23:00 Atorvastatin Calcium (Lipitor) 40 mg QHS GTB ; Start 12/19/16 at 21:00 Bisacodyl (Dulcolax Supp) 10 mg Q2D [place] Last administered on 12/19/16 00:03; Admin Dose 10 MG; Start 12/18/16 at 23:00 Chlorhexidine Gluconate (Peridex) 15 ml Q12H MM Last administered on 12/19/16 00:03; Admin Dose 15 ML; Start 12/18/16 at 23:00 Digoxin (Digoxin) 0.125 mg Q48H GTB ; Start 12/19/16 at 13:00 Diltiazem HCl (Cardizem Sr) 60 mg BID PO Last administered on 12/19/16 09:10; Admin Dose 60 MG; Start 12/19/16 at 09:00 Labetalol HCl (Normodyne) 50 mg Q6H GTB Last administered on 12/19/16 05:58; Admin Dose 50 MG; Start 12/18/16 at 23:00 Lansoprazole (Prevacid) 30 mg DAILY GTB Last administered on 12/19/16 09:08; Admin Dose 30 MG; Start 12/19/16 at 09:00 Losartan Potassium (Cozaar) 100 mg DAILY GTB Last administered on 12/19/16 09: 09; Admin Dose 100 MG; Start 12/19/16 at 09:00 Magnesium Hydroxide (Milk Of Mag) 30 ml DAILY GTB Last administered on 09:08; Admin Dose 30 ML; Start 12/19/16 at 09:00 Metoprolol Tartrate (Lopressor) 50 mg BID GTB Last administered on 12/19/16 09 :09; Admin Dose 50 MG; Start 12/19/16 at 09:00 Ondansetron HCl (Zofran Tab) 4 mg Q6H PRN GTB NAUSEA AND/OR VOMITING; Start at 23:00 Sodium Biphosphate/ Sodium Phosphate (Fleet Enema Pediatric) 66.6 ml Q3D PRN [place] CONSTIPATION; Start 12/18/16 at 23:00 Spironolactone (Aldactone) 25 mg BID GTB Last administered on 12/19/16 09:09; Admin Dose 25 MG; Start 12/19/16 at 09:00 Vancomycin HCl (Vancomycin Oral Syringe) 125 mg Q6 PO Last administered on 12/19 05:57; Admin Dose 125 MG; Start 12/19/16 at 00:00 DANELLE LEHMAN MD Dec 19, 2016 11:53
[2016-12-19] MEDS: DIGOXIN 0.125 MG TAB GTB SCH (12:28)
[2016-12-19 14:08] LABS: IRON 103 ug/dl (35-150)
[2016-12-19 14:18] LABS: TOTAL IRON BINDING CAPACITY 285 ug/dl (241-421)
[2016-12-19 14:42] LABS: RETICULOCYTE COUNT % 1.7 % (0.5-1.5)
[2016-12-19 14:56] LABS: LACTATE DEHYDROGENASE 426 IU/L (313-618)
[2016-12-19 14:57] LABS: URIC ACID 5.7 mg/dl (3.1-7.9)
[2016-12-19 16:07] LABS: FOLATE > 20.0 ng/ml (2.8-20.0)
[2016-12-19] MEDS: ACETAMINOPHEN 650MG/20.3ML CUP GTB PRN (16:20)
[2016-12-19 17:39] LABS: CARCINOEMBRYONIC ANTIGEN 7.6 ng/ml (0.0-5.0)
--- NOTE | 2016-12-19 20:20 | CONS ---
DATE OF ADMISSION: 12/18/2016 DATE OF CONSULTATION: TYPE OF CONSULTATION: Gastroenterology. REASON FOR CONSULTATION: Anemia and positive stool guaiac. HISTORY OF PRESENT ILLNESS: An 86-year-old female with a history of vent-dependent respiratory fail ure, status post PEG; chronic atrial fibrillation, encephalopathy, CVA, hypertension, hypothyroidism , was admitted to the [facility] for anemia requiring blood transfusion. The silvia ent was originally at [facility], where she was treated for C. difficile colitis, UTI and zoste r. GI consult was called in for anemia, and patient is not on any anticoagulant for the time being until the GI workup is completed and find the source of bleeding. The patient's CEA also was report ed high, 7.6. PAST MEDICAL HISTORY: As described. PAST SURGICAL HISTORY: Status post trach and PEG. MEDICATIONS: Reconciliation list reviewed. SOCIAL HISTORY: Lives at subacute facility. FAMILY HISTORY: Nothing contributory. PHYSICAL EXAMINATION: GENERAL: The patient is awake, not alert, does not respond to command. CARDIOVASCULAR: No murmur, gallop or click. Heart rate is irregular. LUNGS: The patient is on vent. ABDOMEN: Benign, has got a G-tube. EXTREMITIES: No edema. CENTRAL NERVOUS SYSTEM: Does not communicate. LABORATORY DATA: Stool for occult blood was positive. After blood transfusion, the hematocrit has come up. IMPRESSION: 1. Gastrointestinal bleeding with positive stool guaiac and anemia with a high CEA level, rule out colonic malignancy, rule out upper gastrointestinal pathology. 2. Clostridium difficile colitis. The patient is on vancomycin. 3. Shingles. 4. Ventilator-dependent respiratory failure. 5. Chronic atrial fibrillation. 6. Cerebrovascular accident. 7. Encephalopathy. 8. Pneumonia. 9. Hypertension. 10. Hypothyroidism. PLAN: At this point is to continue lansoprazole, will monitor H and H, and if family agrees will pr oceed with both EGD and colonoscopy. Dictated By: MARY SAXENA/TONIO Conf#: [id number] DID#: [id number]
[2016-12-19] MEDS: ATORVASTATIN 40 MG TAB GTB SCH (22:05)
[2016-12-20] VITALS (24 sets, daily range): BP systolic 135–167; BP diastolic 68–81; PULSE 63–74; RESP 14–20
[2016-12-20] MEDS: LABETALOL 100 MG TAB GTB SCH ×4 (05:00→22:09)
[2016-12-20] MEDS: CALCIUM CARBONATE 1.25 GM TAB GTB SCH ×2 (06:12→17:22)
[2016-12-20] MEDS: FUROSEMIDE 40 MG TAB GTB SCH ×2 (06:13→17:23)
[2016-12-20] MEDS: VANCOMYCIN HCL 250 MG/5ML POSYG PO SCH ×3 (06:13→17:22)
[2016-12-20] MEDS: LEVOTHYROXINE 125 MCG TAB GTB SCH (06:13)
[2016-12-20 06:54] LABS: ADD SCAN DIFF NO
[2016-12-20 07:05] LABS: BASOPHILS % 0.4 % (0.0-2.0); EOSINOPHILS # 0.4 10^3/ul (0.0-0.5); EOSINOPHILS % 5.1 % (0.0-7.0); HEMATOCRIT 30.2 % (37.0-47.0); HEMOGLOBIN 9.8 g/dl (12.0-16.0); LYMPHOCYTES % 14.6 % (15.0-51.0); MEAN CORPUSCULAR HEMOGLOBIN 29.4 pg (29.0-33.0); MEAN CORPUSCULAR HGB CONC 32.5 g/dl (32.0-37.0); MEAN CORPUSCULAR VOLUME 90.7 fl (82.0-101.0); MEAN PLATELET VOLUME 10.1 fl (7.4-10.4); MONOCYTE # 0.5 10^3/ul (0.3-0.9); MONOCYTES % 7.4 % (0.0-11.0); NEUTROPHILS % 72.4 % (39.0-77.0); NUCLEATED RED BLOOD CELLS # 0.1 10^3/ul (0.0-0.0); NUCLEATED RED BLOOD CELLS% 1.3 /100WBC (0.0-0.0); PLATELET COUNT 204 10^3/UL (140-415); RED BLOOD COUNT 3.33 10^6/ul (4.20-5.40); RED CELL DISTRIBUTION WIDTH 21.2 % (11.5-14.5); WHITE BLOOD COUNT 6.9 10^3/ul (4.8-10.8)
[2016-12-20 07:13] LABS: POTASSIUM 4.2 mmol/L (3.5-5.1)
[2016-12-20 07:15] LABS: CREATININE 0.67 mg/dl (0.44-1.00)
[2016-12-20 07:16] LABS: CALCIUM 9.1 mg/dl (8.4-10.2); MAGNESIUM 1.9 mg/dl (1.7-2.5); PHOSPHORUS 2.5 mg/dl (2.5-4.9)
[2016-12-20] MEDS: MAGNESIUM HYDROXIDE 30ML CUP GTB SCH (08:10)
[2016-12-20] MEDS: DILTIAZEM (SR) 60 MG CAP PO SCH ×2 (08:11→22:08)
[2016-12-20] MEDS: SPIRONOLACTONE 25 MG TAB GTB SCH ×2 (08:11→22:08)
[2016-12-20] MEDS: LANSOPRAZOLE 30 MG CAP GTB SCH (08:11)
[2016-12-20] MEDS: METOPROLOL 50 MG TAB GTB SCH ×2 (08:11→22:07)
[2016-12-20] MEDS: LOSARTAN 50 MG TAB GTB SCH (08:11)
[2016-12-20] MEDS: CHLORHEXIDINE GLUCONATE 15 ML UD CUP MM SCH ×2 (10:43→22:07)
--- NOTE | 2016-12-20 10:50 | PN ---
DATE: 12/20/2016 SUBJECTIVE: The patient is stable. No acute events overnight. No fevers, chills, nausea, or vomit ing. OBJECTIVE: VITAL SIGNS: Blood pressure 166/78, respirations 18, pulse 98, temperature 97.9. HEENT: Head is normocephalic. NECK: Supple. HEART: Regular rate. LUNGS: Showed diminished breath sounds at the base. ABDOMEN: Soft, nontender to palpation. No rebound or guarding. EXTREMITIES: Negative for clubbing or cyanosis. No edema. DERMATOLOGIC: No rashes. MUSCULOSKELETAL: Have no joint effusion. NEUROLOGIC: No change in exam. MEDICATIONS: The patient's medications have been reviewed. LABORATORY DATA: Shows sodium 137, potassium 4.2, chloride 97, BUN 35, creatinine 0.67. White coun t 6.9, hemoglobin 9.8, hematocrit 38.2, platelet count is 204. The patient's C. difficile was noted to be negative. Cultures negative x1 day. ASSESSMENT AND PLAN: 1. Acute lower gastrointestinal bleed. The patient is status post blood transfusion. Hemoglobin l evels remain stable. The patient was seen by GI, is recommending an EGD and colonoscopy. Will foll ow up for further recommendations. 2. Atrial fibrillation, currently rate controlled. Continue the current medical management and fol low up with cardiology. Anticoagulation is being held at this time. 3. Sepsis secondary to a recent urinary tract infection and Clostridium difficile colitis. The pat ient's repeat stool for C. diff was negative. The patient remains on oral vancomycin. Will continu e. Follow up with infectious disease. 4. Ventilatory-dependent respiratory failure. Vent settings were reviewed. ABG was reviewed. Con tinue to monitor. 5. Dysphagia. Status post PEG. Continue tube feeding. 6. Acute systolic and diastolic heart failure. The patient is currently decompensated. Continue m edical management. Continue diuretic therapy. 7. Acute on chronic encephalopathy. Etiology is toxic metabolic. The patient's mental status appe ars to be improving. Continue to monitor. 8. Anemia. Etiology is likely secondary to gastrointestinal bleed. The patient has been evaluated by Dr. Vaca for possible pernicious anemia. Greatly appreciate her help with evaluation. Bill l continue to monitor. 9. History of cerebrovascular accident. Continue medical management. 10. Hypertension. Continue current blood pressure regimen. 11. Hypothyroidism. The patient's CCH remains elevated. Will increase Synthroid to 150 mcg daily. 12. Renal insufficiency. Improved. Continue supportive care. 13. Mild hyperkalemia. Resolved. 14. Shingles. The patient is status post Valtrex. 15. Gastrointestinal and deep venous thrombosis prophylaxis. Continue proton pump inhibitor and se quential leg squeezers. Dictated By: NIRMALA RODRIGUEZ/TONIO Conf#: [id number] DID#: [id number]
--- NOTE | 2016-12-20 10:51 | PN ---
DATE: 12/20/2016 CARDIOLOGY FOLLOWUP SUBJECTIVE: Discussed with the staff. Rhythm strip was reviewed. The patient remains in atrial fi brillation. Heart rate has remained stable. The patient is status post tracheostomy, on the vent, nonverbal. No reported chest pain or pressure. No more report of bleeding noted. MEDICATIONS: Reviewed as per medical reconciliation, was personally reviewed. PHYSICAL EXAMINATION: VITAL SIGNS: Temperature 97.9, heart rate of 88, blood pressure 160/78, respiration rate of 18, sat urating 97%. HEENT: Normocephalic, atraumatic. Pupils are equal and round. NECK: Supple. Tracheostomy on the vent. CARDIOVASCULAR: Irregularly irregular. Systolic murmur, grade I/. PULMONARY: With no wheezes. Minimal rhonchi at the base. GASTROINTESTINAL: Obese, soft, nontender. Status post PEG placement. EXTREMITIES: With trivial lower extremity edema. NEUROLOGIC: Awake, does not answer my question. Has right-sided weakness. PSYCHIATRIC: Appears to be calm now. DERMATOLOGIC: There is no active bleeding. Multiple ecchymoses noted. LABORATORY: WBC of 6.9, hemoglobin 9.8, platelets of 204. Sodium 137, potassium 4.2, BUN of 35, cr eatinine 0.67, glucose 105. TSH is 22.3. ASSESSMENT AND PLAN: 1. Hypoxemic respiratory failure, status post tracheostomy, on the vent. 2. Status post cerebrovascular accident. 3. Atrial fibrillation, on heart rate control at the moment, unable to anticoagulate due to severe anemia. occult blood positive stool consistent with gastrointestinal bleed. 4. Gastrointestinal bleed and occult blood positive stool. 5. History of congestive heart failure and fluid overload secondary to diastolic dysfunction and va lvular heart disease. 6. Thyroid disorder. 7. Azotemia RECOMMENDATIONS: We will continue with the current cardiac care, including Cardizem and beta block er. Digoxin will continue at a low dose. Losartan as tolerated will be continued. Anticoagulation is on hold currently. I will check the di goxin level tomorrow and adjust it as needed. Heart rate under good control. Thyroid function test s will be repeated. Thyroid supplement will be continued. GI workup including EGD, colonoscopy are being planned by Dr. Rai and associates. We will continue to monitor on telemetry, minimal. Dictated By: LETICIA MCWILLIAMS MD AV/TONIO Conf#: [id number] DID#: [id number]
[2016-12-20] MEDS ORDERED: PHYTONADIONE 10 MG/ML INJ SC ONE (11:00)
[2016-12-20] MEDS ORDERED: BISACODYL (EC) 5 MG TAB PO ONE ×2 (12:00→20:00)
[2016-12-20] MEDS ORDERED: PEG/ELECTROLYTES 4L BTL PO ONE ×2 (14:00→18:00)
--- NOTE | 2016-12-20 14:55 | PN ---
DATE: 12/20/2016 INFECTIOUS DISEASE PROGRESS NOTE SUBJECTIVE: No events overnight. The patient is lying comfortably in bed. No fevers. WBC 6.9, H and H 9.8 and 30.2, platelets 204. No shift, no bands. BUN 35, creatinine 0.67. MICROBIOLOGY: Urine culture growing Pseudomonas species. Blood cultures negative. Stool cultures negative. ANTIMICROBIALS: The patient is on oral vancomycin. INDWELLINGS: Trach, PEG. PHYSICAL EXAMINATION: GENERAL: This is an obese, chronically ill-appearing, elderly woman, who is nonverbal, noncommunica tive. The patient is in no distress. HEENT: Head atraumatic, normocephalic. Sclerae are anicteric. Buccal mucosa dry. NECK: Supple. CHEST: Chest rise is symmetrical. Breath sounds diminished to the bases. HEART: S1, S2. ABDOMEN: Soft, bowel tones present. EXTREMITIES: Without cyanosis. ASSESSMENT: 1. Acute anemia with gastrointestinal bleeding. Status post blood transfusion. Pending colonoscop y. 2. Pseudomonas aeruginosa urinary tract infection. 3. Clostridium difficile colitis, in treatment. 4. Respiratory failure, chronic. 5. Congestive heart failure. 6. Atrial fibrillation. PLAN: The patient remains stable. We are going to start her on meropenem to cover pseudomonas. Aw ait for final cultures. Follow GI recommendations. Dictated By: NIKOLAS WATTS P[employer] COVERER [employer]/TONIO Conf#: [id number] DID#: [id number]
--- NOTE | 2016-12-20 15:33 | CONS ---
Date/Time of Note Date/Time of Note DATE: 12/20/16 TIME: 15:31 Assessment/Plan Assessment/Plan Additional Assessment/Plan Ventilator settings; AC of 12, tidal volume 500, PEEP of 5, 30% FiO2. Assessment recommendations; next 1. Patient admitted for anemia without any overt bleeding. Status post blood transfusion with stable hematocrit. Scheduled for EGD and colonoscopy. 2. History of CVA with chronic respiratory failure. 3. Atrial fibrillation. 4. History of hypertension 5. History of hypothyroidism. Continue current supportive care. Consultation Date/Type/Reason Admit Date/Time Dec 18, 2016 at 16:05 Initial Consult Date 12/19/16 Type of Consultation: Pulmonary critical care Referring Provider: NIRMALA TAVAREZ DO 24 HR Interval Summary Free Text/Dictation Patient condition stable. Patient is awake but does not follow any commands. Has remained hemodynamically stable. Next regular exam; elderly woman, on ventilator via tracheostomy currently in no distress. Exam/Review of Systems Vital Signs Vitals Vital Signs Date Time Temp Pulse Resp B/P Pulse Ox O2 Delivery O2 Flow Rate FiO2 12/20/16 13:24 57 16 98 40 12/20/16 11:28 98.3 135/81 12/18/16 21:30 Mechanical Ventilator Intake and Output 12/19/16 12/19/16 12/20/16 15:00 23:00 07:00 Intake Total 750 ml 700 ml Balance 750 ml 700 ml Exam HEENT exam is; supple neck, JVD difficult to see because of short neck. Midsize pupils bilaterally. No neck masses. No thyromegaly. Tracheostomy in place with clean insertion site. Chest examination; diminished but clear breath sounds bilaterally. S1-S2 audible, irregular rhythm. Abdomen examination; soft, G-tube in place. No organomegaly. Bowel sounds audible. Extremity examination; no peripheral edema. VENDING ATTENDANT examination; patient is awake and able to move left upper extremity only spontaneously. Results Result Diagram: 12/20/16 0557 12/20/16 0557 Results 24 hrs Laboratory Tests Test 12/20/16 05:57 12/20/16 10:30 White Blood Count 6.9 Red Blood Count 3.33 L Hemoglobin 9.8 L Hematocrit 30.2 L Mean Corpuscular Volume 90.7 Mean Corpuscular Hemoglobin 29.4 Mean Corpuscular Hemoglobin Concent 32.5 Red Cell Distribution Width 21.2 H Platelet Count 204 Mean Platelet Volume 10.1 Neutrophils % 72.4 Lymphocytes % 14.6 L Monocytes % 7.4 Eosinophils % 5.1 Basophils % 0.4 Nucleated Red Blood Cells % 1.3 H Neutrophils # 5.0 Lymphocytes # 1.0 Monocytes # 0.5 Eosinophils # 0.4 Basophils # 0.0 Nucleated Red Blood Cells # 0.1 H Sodium Level 137 Potassium Level 4.2 Chloride Level 97 Carbon Dioxide Level 30 Anion Gap 14 Blood Urea Nitrogen 35 H Creatinine 0.67 Glucose Level 105 Calcium Level 9.1 Phosphorus Level 2.5 Magnesium Level 1.9 Stool Occult Blood POSITIVE Medications Medications Current Medications Acetaminophen (Tylenol Liquid) 650 mg Q6H PRN GTB MILD DISCOMFORT Last administered on 12/19/16 16:20; Admin Dose 650 MG; Start 12/18/16 at 23:00 Atorvastatin Calcium (Lipitor) 40 mg QHS GTB Last administered on 12/19/16 22: 05; Admin Dose 40 MG; Start 12/19/16 at 21:00 Bisacodyl (Dulcolax Supp) 10 mg Q2D [place] Last administered on 12/19/16 00:03; Admin Dose 10 MG; Start 12/18/16 at 23:00 Chlorhexidine Gluconate (Peridex) 15 ml Q12H MM Last administered on 12/20/16 10:43; Admin Dose 15 ML; Start 12/18/16 at 23:00 Digoxin (Digoxin) 0.125 mg Q48H GTB Last administered on 12/19/16 12:28; Admin Dose 0.125 MG; Start 12/19/16 at 13:00 Diltiazem HCl (Cardizem Sr) 60 mg BID PO Last administered on 12/20/16 08:11; Admin Dose 60 MG; Start 12/19/16 at 09:00 Labetalol HCl (Normodyne) 50 mg Q6H GTB Last administered on 12/20/16 10:43; Admin Dose 50 MG; Start 12/18/16 at 23:00 Lansoprazole (Prevacid) 30 mg DAILY GTB Last administered on 12/20/16 08:11; Admin Dose 30 MG; Start 12/19/16 at 09:00 Losartan Potassium (Cozaar) 100 mg DAILY GTB Last administered on 12/20/16 08: 11; Admin Dose 100 MG; Start 12/19/16 at 09:00 Magnesium Hydroxide (Milk Of Mag) 30 ml DAILY GTB Last administered on 08:10; Admin Dose 30 ML; Start 12/19/16 at 09:00 Metoprolol Tartrate (Lopressor) 50 mg BID GTB Last administered on 12/20/16 08 :11; Admin Dose 50 MG; Start 12/19/16 at 09:00 Ondansetron HCl (Zofran Tab) 4 mg Q6H PRN GTB NAUSEA AND/OR VOMITING; Start at 23:00 Sodium Biphosphate/ Sodium Phosphate (Fleet Enema Pediatric) 66.6 ml Q3D PRN [place] CONSTIPATION; Start 12/18/16 at 23:00 Spironolactone (Aldactone) 25 mg BID GTB Last administered on 12/20/16 08:11; Admin Dose 25 MG; Start 12/19/16 at 09:00 Vancomycin HCl (Vancomycin Oral Syringe) 125 mg Q6 PO Last administered on 12/20 06:13; Admin Dose 125 MG; Start 12/19/16 at 00:00 Bisacodyl 10 mg 10 mg ONCE ONCE PO ; Start 12/20/16 at 20:00; Stop 12/20/16 at 20:01 Meropenem (Merrem 500 Mg/ 100 ml (Pmx)) 100 ml @ 200 mls/hr Q12 IVPB ; Start at 21:00 NICOLAS VASQUEZ Dec 20, 2016 15:33
[2016-12-20 15:45] LABS: MICROALBUMIN 0.6 mg/dL
[2016-12-20] MEDS: BISACODYL 10 MG SUPP PR SCH (22:06)
[2016-12-20] MEDS: MEROPENEM 500 MG/100 ML (PMX) 100 ML IVPB SCH (22:06)
[2016-12-20] MEDS: ATORVASTATIN 40 MG TAB GTB SCH (22:07)
--- NOTE | 2016-12-20 22:40 | CONS ---
Date/Time of Note Date/Time of Note DATE: 12/20/16 TIME: 22:33 Assessment/Plan Assessment/Plan Chief Complaint/Hosp Course Anemia- n- cytic with increased rdw no evidence of B12 deficiency pos gastrointestinal bleed Will continue to monitor. Scheduled for EGD and colonoscopy. if all neg- would consider bmbx Acute lower gastrointestinal bleed. The patient is status post blood transfusion. Hemoglobin levels remain stable. for EGD and colonoscopy Atrial fibrillation, currently rate controlled. Continue the current medical management and follow up with cardiology. Anticoagulation is being held at this time. Sepsis secondary to a recent urinary tract infection and Clostridium difficile colitis. The patient's repeat stool for C. diff was negative. The patient remains on oral vancomycin. Follow up with infectious disease. Ventilatory-dependent respiratory failure. Dysphagia. Status post PEG. Continue tube feeding. Acute systolic and diastolic heart failure. The patient is currently decompensated. Continue medical management. Continue diuretic therapy. Acute on chronic encephalopathy. Etiology is toxic metabolic. The patient's mental status appears to be improving. Continue to monitor. History of cerebrovascular accident. Continue medical management. Hypertension. Continue current blood pressure regimen. Hypothyroidism. The patient's CCH remains elevated. Will increase Synthroid to 150 mcg daily. Renal insufficiency. Improved. Continue supportive care. Mild hyperkalemia. Resolved. Shingles. The patient is status post Valtrex. Gastrointestinal and deep venous thrombosis prophylaxis. Continue proton pump inhibitor and sequential leg squeezers. Problems: Consultation Date/Type/Reason Admit Date/Time Dec 18, 2016 at 16:05 Initial Consult Date 12/19/16 Type of Consultation: [facility] Referring Provider: NIRMALA TAVAREZ DO 24 HR Interval Summary Free Text/Dictation Status post blood transfusion with stable hematocrit. Scheduled for EGD and colonoscopy. if all neg- would consider bmbx Exam/Review of Systems Vital Signs Vitals Vital Signs Date Time Temp Pulse Resp B/P Pulse Ox O2 Delivery O2 Flow Rate FiO2 12/20/16 20:41 66 12/20/16 19:52 98.5 15 154/69 96 12/20/16 17:17 40 12/18/16 21:30 Mechanical Ventilator Intake and Output 12/19/16 12/19/16 12/20/16 15:00 23:00 07:00 Intake Total 750 ml 700 ml Balance 750 ml 700 ml Exam HEENT: Head is normocephalic. NECK: Supple. HEART: Regular rate. LUNGS: Showed diminished breath sounds at the base. ABDOMEN: Soft, nontender to palpation. No rebound or guarding. EXTREMITIES: Negative for clubbing or cyanosis. No edema. DERMATOLOGIC: No rashes. MUSCULOSKELETAL: Have no joint effusion. NEUROLOGIC: No change in exam. Results Result Diagram: 12/20/16 0557 12/20/16 0557 Results 24 hrs Laboratory Tests Test 12/20/16 05:57 12/20/16 10:30 White Blood Count 6.9 Red Blood Count 3.33 L Hemoglobin 9.8 L Hematocrit 30.2 L Mean Corpuscular Volume 90.7 Mean Corpuscular Hemoglobin 29.4 Mean Corpuscular Hemoglobin Concent 32.5 Red Cell Distribution Width 21.2 H Platelet Count 204 Mean Platelet Volume 10.1 Neutrophils % 72.4 Lymphocytes % 14.6 L Monocytes % 7.4 Eosinophils % 5.1 Basophils % 0.4 Nucleated Red Blood Cells % 1.3 H Neutrophils # 5.0 Lymphocytes # 1.0 Monocytes # 0.5 Eosinophils # 0.4 Basophils # 0.0 Nucleated Red Blood Cells # 0.1 H Sodium Level 137 Potassium Level 4.2 Chloride Level 97 Carbon Dioxide Level 30 Anion Gap 14 Blood Urea Nitrogen 35 H Creatinine 0.67 Glucose Level 105 Calcium Level 9.1 Phosphorus Level 2.5 Magnesium Level 1.9 Stool Occult Blood POSITIVE Medications Medications Current Medications Acetaminophen (Tylenol Liquid) 650 mg Q6H PRN GTB MILD DISCOMFORT Last administered on 12/19/16 16:20; Admin Dose 650 MG; Start 12/18/16 at 23:00 Atorvastatin Calcium (Lipitor) 40 mg QHS GTB Last administered on 12/20/16 22: 07; Admin Dose 40 MG; Start 12/19/16 at 21:00 Bisacodyl (Dulcolax Supp) 10 mg Q2D [place] Last administered on 12/20/16 22:06; Admin Dose 10 MG; Start 12/18/16 at 23:00 Chlorhexidine Gluconate (Peridex) 15 ml Q12H MM Last administered on 12/20/16 22:07; Admin Dose 15 ML; Start 12/18/16 at 23:00 Digoxin (Digoxin) 0.125 mg Q48H GTB Last administered on 12/19/16 12:28; Admin Dose 0.125 MG; Start 12/19/16 at 13:00 Diltiazem HCl (Cardizem Sr) 60 mg BID PO Last administered on 12/20/16 22:08; Admin Dose 60 MG; Start 12/19/16 at 09:00 Labetalol HCl (Normodyne) 50 mg Q6H GTB Last administered on 12/20/16 22:09; Admin Dose 50 MG; Start 12/18/16 at 23:00 Lansoprazole (Prevacid) 30 mg DAILY GTB Last administered on 12/20/16 08:11; Admin Dose 30 MG; Start 12/19/16 at 09:00 Losartan Potassium (Cozaar) 100 mg DAILY GTB Last administered on 12/20/16 08: 11; Admin Dose 100 MG; Start 12/19/16 at 09:00 Magnesium Hydroxide (Milk Of Mag) 30 ml DAILY GTB Last administered on 08:10; Admin Dose 30 ML; Start 12/19/16 at 09:00 Metoprolol Tartrate (Lopressor) 50 mg BID GTB Last administered on 12/20/16 22 :07; Admin Dose 50 MG; Start 12/19/16 at 09:00 Ondansetron HCl (Zofran Tab) 4 mg Q6H PRN GTB NAUSEA AND/OR VOMITING; Start at 23:00 Sodium Biphosphate/ Sodium Phosphate (Fleet Enema Pediatric) 66.6 ml Q3D PRN [place] CONSTIPATION; Start 12/18/16 at 23:00 Spironolactone (Aldactone) 25 mg BID GTB Last administered on 12/20/16 22:08; Admin Dose 25 MG; Start 12/19/16 at 09:00 Vancomycin HCl 125 mg 125 mg Q6 PO Last administered on 12/20/16 17:22; Admin Dose 125 MG; Start 12/19/16 at 00:00 Meropenem (Merrem 500 Mg/ 100 ml (Pmx)) 100 ml @ 200 mls/hr Q12 IVPB Last administered on 12/20/16 22:06; Admin Dose 200 MLS/HR; Start 12/20/16 at 21:00 DANELLE LEHMAN MD Dec 20, 2016 22:40
[2016-12-21] VITALS (28 sets, daily range): BP systolic 134–185; BP diastolic 63–85; PULSE 57–79; RESP 14–23
[2016-12-21] MEDS: VANCOMYCIN HCL 250 MG/5ML POSYG PO SCH ×4 (01:42→17:11)
[2016-12-21 06:14] LABS: ADD SCAN DIFF NO
[2016-12-21] MEDS: FUROSEMIDE 40 MG TAB GTB SCH ×2 (06:21→17:10)
[2016-12-21] MEDS: LEVOTHYROXINE 150 MCG TAB GTB SCH (06:21)
[2016-12-21] MEDS: CALCIUM CARBONATE 1.25 GM TAB GTB SCH ×2 (06:21→17:10)
[2016-12-21] MEDS: LABETALOL 100 MG TAB GTB SCH ×3 (06:22→16:31)
[2016-12-21 06:35] LABS: INR 1.52; PROTIME 18.4 Sec (12.2-14.2); PT RATIO 1.4
[2016-12-21 06:50] LABS: ALBUMIN 3.2 g/dl (3.3-4.9)
[2016-12-21 06:51] LABS: POTASSIUM 3.9 mmol/L (3.5-5.1)
[2016-12-21 06:53] LABS: ALBUMIN/GLOBULIN RATIO 0.8; BILIRUBIN,INDIRECT 0.6 mg/dl (0-1.1); BILIRUBIN,TOTAL 0.6 mg/dl (0.2-1.3); CREATININE 0.58 mg/dl (0.44-1.00); TOTAL PROTEIN 7.2 g/dl (6.1-8.1)
[2016-12-21 06:54] LABS: CALCIUM 8.9 mg/dl (8.4-10.2); MAGNESIUM 1.8 mg/dl (1.7-2.5)
[2016-12-21 06:57] LABS: BASOPHILS % 0.4 % (0.0-2.0); EOSINOPHILS # 0.3 10^3/ul (0.0-0.5); EOSINOPHILS % 3.4 % (0.0-7.0); HEMATOCRIT 29.4 % (37.0-47.0); HEMOGLOBIN 9.3 g/dl (12.0-16.0); LYMPHOCYTES # 1.1 10^3/ul (0.8-2.9); LYMPHOCYTES % 11.5 % (15.0-51.0); MEAN CORPUSCULAR HEMOGLOBIN 29.2 pg (29.0-33.0); MEAN CORPUSCULAR HGB CONC 31.6 g/dl (32.0-37.0); MEAN CORPUSCULAR VOLUME 92.2 fl (82.0-101.0); MEAN PLATELET VOLUME 9.9 fl (7.4-10.4); MONOCYTE # 0.6 10^3/ul (0.3-0.9); MONOCYTES % 6.3 % (0.0-11.0); NEUTROPHIL # 7.2 10^3/ul (1.6-7.5); NUCLEATED RED BLOOD CELLS # 0.1 10^3/ul (0.0-0.0); NUCLEATED RED BLOOD CELLS% 1.2 /100WBC (0.0-0.0); PLATELET COUNT 203 10^3/UL (140-415); RED BLOOD COUNT 3.19 10^6/ul (4.20-5.40); RED CELL DISTRIBUTION WIDTH 21.5 % (11.5-14.5); WHITE BLOOD COUNT 9.2 10^3/ul (4.8-10.8)
[2016-12-21 07:36] LABS: PROTEIN, TOTAL 7.2 g/dL (6.1-8.1)
[2016-12-21] MEDS: SPIRONOLACTONE 25 MG TAB GTB SCH ×2 (09:20→20:09)
[2016-12-21] MEDS: LANSOPRAZOLE 30 MG CAP GTB SCH (09:20)
[2016-12-21] MEDS: MEROPENEM 500 MG/100 ML (PMX) 100 ML IVPB SCH (09:20)
[2016-12-21] MEDS: METOPROLOL 50 MG TAB GTB SCH ×2 (09:21→20:09)
[2016-12-21] MEDS: DILTIAZEM (SR) 60 MG CAP PO SCH ×3 (09:21→20:10)
[2016-12-21] MEDS: MAGNESIUM HYDROXIDE 30ML CUP GTB SCH (09:22)
[2016-12-21] MEDS: LOSARTAN 50 MG TAB GTB SCH (09:22)
--- NOTE | 2016-12-21 09:48 | PN ---
DATE: 12/21/2016 SUBJECTIVE: The patient is stable. The patient is pending EGD, colonoscopy today. No other events noted. OBJECTIVE: VITAL SIGNS: Blood pressure is 170/72, respiration 16, pulse 83, temperature 98.6. HEENT: Head is normocephalic. NECK: Supple. HEART: Regular rate. LUNGS: Show diminished breath sounds at the base. ABDOMEN: Soft, nontender to palpation. No rebound or guarding. EXTREMITIES: Negative for clubbing, cyanosis, no edema. DERMATOLOGIC: No rashes. MUSCULOSKELETAL: No joint effusions. NEUROLOGIC: No change in exam. LABORATORY DATA: Shows sodium 139, potassium 3.9, chloride 98, BUN 26, creatinine 0.58. White coun t 9.2, hemoglobin 9.3, hematocrit 29.4, platelet count is 203. INR is 1.52. Stool for guaiac posit cathy. Urine culture is positive for Pseudomonas. ASSESSMENT AND PLAN: 1. Acute lower gastrointestinal bleed. The patient is status post blood transfusion. Hemoglobin h as been stable. The patient has been seen by GI, pending EGD, colonoscopy today. 2. Atrial fibrillation, currently rate controlled. Continue current medical management. Anticoagu lation is being held at this time. 3. Sepsis secondary to urinary tract infection, Clostridium difficile colitis. The patient's urine culture is positive. Clostridium difficile cultures were negative. Urine cultures grew out Pseudo monas. Will continue meropenem. Continue oral vancomycin. Follow up with infectious disease per r ecommendations. 4. Ventilatory-dependent respiratory failure. Vent settings have been reviewed, ABGs reviewed. Co ntinue to monitor. 5. Dysphagia status post PEG. Continue tube feed. 6. Acute systolic, diastolic heart failure. The patient is currently decompensated. Continue [facility] management. Continue diuretic therapy. Follow up with cardiology. 7. Acute on chronic encephalopathy. Etiology is toxic metabolic. The patient's mental status appe ars to be improving. Continue to monitor. 8. Anemia, etiology is likely secondary to acute gastrointestinal bleeding and chronic disease as s tated above. Continue to monitor H and H levels. Appreciate Dr. Mendoza's evaluation. 9. History of cerebrovascular accident. Continue medical management. 10. Hypertension. Continue current blood pressure regimen. 11. Hyperthyroidism. The patient's TSH levels are elevated. Increase Synthroid to 150 mcg daily. Will monitor. Repeat TSH level in 2 to 3 weeks. 12. Renal insufficiency, improved. 13. Mild hyperkalemia, resolved. 14. Shingles. The patient is status post Valtrex. 15. Gastrointestinal and deep venous thrombosis prophylaxis. Continue PPI, sequential leg squeezer s. Dictated By: NIRMALA TAVAREZ DO NR/TONIO Conf#: [id number] DID#: [id number]
--- NOTE | 2016-12-21 10:47 | PN ---
DATE: 12/21/2016 CARDIOLOGY FOLLOWUP SUBJECTIVE: Discussed with the staff. Rhythm strip was reviewed. The patient remains in atrial fi brillation. Heart rate has remained stable. The patient is still on the vent, does not answer my q uestion though. No active bleeding has been reported to me. MEDICATIONS: Reviewed as per medical reconciliation, personally reviewed. PHYSICAL EXAMINATION: VITAL SIGNS: Temperature 98.6, heart rate of 80, blood pressure 170/72, respiratory rate of 20, sat urating 97%. HEENT: Normocephalic, atraumatic. Obese female. Pupils are equal. CARDIOVASCULAR: Irregularly irregular. Systolic murmur. PULMONARY: With no wheezes heard. GASTROINTESTINAL: Soft, nontender. EXTREMITIES: With positive edema. NEUROLOGIC: Awake but does not answer my questions. PSYCHIATRIC: Appeared to be calm. DERMATOLOGIC: Multiple ecchymoses. LABORATORY DATA: WBC of 9.2, hemoglobin 9.3, platelets of 203. Sodium 139, potassium 3.9, BUN of 2 6, creatinine 0.58, glucose 104. ASSESSMENT AND PLAN: 1. Atrial fibrillation, chronic. Currently off anticoagulation due to concern about gastrointestin al bleed. 2. Severe anemia with positive stool consistent with gastrointestinal bleed. 3. Hypoxemic respiratory failure, status post tracheostomy, vent-dependent. 4. Hypertension. 5. History of congestive heart failure and fluid overload secondary to diastolic dysfunction, valvu lar heart disease. 6. Thyroid disorder. 7. Azotemia. RECOMMENDATIONS: Beta parvin will be continued. I will increase the Cardizem to t.i.d. We will c richie with the rest of her cardiac care. GI workup is still pending. Vent support will be contin ued. Monitor on telemetry. Dictated By: LETICIA MCWILLIAMS MD AV/TONIO Conf#: [id number] DID#: [id number] CC: NIRMALA TAVAREZ DO;*EndCC*
[2016-12-21] MEDS: CHLORHEXIDINE GLUCONATE 15 ML UD CUP MM SCH (11:17)
--- NOTE | 2016-12-21 12:21 | CONS ---
Date/Time of Note Date/Time of Note DATE: 12/21/16 TIME: 12:18 Assessment/Plan Assessment/Plan Additional Assessment/Plan Ventilator settings are AC of 12, tidal volume 500, PEEP of 5, 30% FiO2. Assessment recommendations; 1. Patient admitted for anemia, status post blood transfusion with stable hematocrit. 2. Congestive heart failure. 3. Advanced dementia. 4. Chronic respiratory failure, ventilator dependent. 5. Hypertension. 6. Chronic atrial fibrillation. 7. Hypothyroidism. Continue current treatment. Prognosis is poor. Consultation Date/Type/Reason Admit Date/Time Dec 18, 2016 at 16:05 Initial Consult Date 12/19/16 Type of Consultation: Pulmonary/critical care Referring Provider: NIRMALA TAVAREZ DO 24 HR Interval Summary Free Text/Dictation Patient condition remains stable. Has remained hemodynamically stable. Remains awake but unresponsive due to anoxic brain injury. General exam; elderly woman, on ventilator via tracheostomy currently in no distress. Awake. Exam/Review of Systems Vital Signs Vitals Vital Signs Date Time Temp Pulse Resp B/P Pulse Ox O2 Delivery O2 Flow Rate FiO2 12/21/16 11:53 71 18 185/85 98 Trach Collar 12/21/16 11:10 40 12/21/16 07:30 98.6 Intake and Output 12/20/16 12/20/16 12/21/16 15:00 23:00 07:00 Intake Total 2700 ml 1850 ml Balance 2700 ml 1850 ml Exam HEENT examination; supple neck, JVD difficult to see because of short neck. Pupils are midsize reactive to light bilaterally. No neck masses. Tracheostomy in place with clean insertion site. No thyromegaly. No lymphadenopathy. Chest examination; diminished breath sound bilaterally. S1-S2 audible, no murmurs. Regular rhythm. Abdomen examination; soft, protuberant. G-tube in place. Bowel sounds audible. Extremity examination; no peripheral edema. ACTIVE DIRECTORY ARCHITECT examination; patient is awake able to move left upper extremity only, spontaneously. Results Result Diagram: 12/21/16 0530 12/21/16 0530 Results 24 hrs Laboratory Tests Test 12/21/16 05:30 White Blood Count 9.2 # Red Blood Count 3.19 L Hemoglobin 9.3 L Hematocrit 29.4 L Mean Corpuscular Volume 92.2 Mean Corpuscular Hemoglobin 29.2 Mean Corpuscular Hemoglobin Concent 31.6 L Red Cell Distribution Width 21.5 H Platelet Count 203 Mean Platelet Volume 9.9 Neutrophils % 78.0 H Lymphocytes % 11.5 L Monocytes % 6.3 Eosinophils % 3.4 Basophils % 0.4 Nucleated Red Blood Cells % 1.2 H Neutrophils # 7.2 Lymphocytes # 1.1 Monocytes # 0.6 Eosinophils # 0.3 Basophils # 0.0 Nucleated Red Blood Cells # 0.1 H Prothrombin Time 18.4 #H Prothrombin Time Ratio 1.4 INR International Normalized Ratio 1.52 Sodium Level 139 Potassium Level 3.9 Chloride Level 98 Carbon Dioxide Level 30 Anion Gap 15 Blood Urea Nitrogen 26 H Creatinine 0.58 Glucose Level 104 Calcium Level 8.9 Magnesium Level 1.8 Total Bilirubin 0.6 Direct Bilirubin 0.00 Indirect Bilirubin 0.6 Aspartate Amino Transf (AST/SGOT) 28 Alanine Aminotransferase (ALT/SGPT) 35 Alkaline Phosphatase 96 B-Type Natriuretic Peptide 7630 H Total Protein 7.2 Albumin 3.2 L Globulin 4.00 H Albumin/Globulin Ratio 0.80 Free Thyroxine 0.85 Digoxin Level 0.7 L Medications Medications Current Medications Acetaminophen (Tylenol Liquid) 650 mg Q6H PRN GTB MILD DISCOMFORT Last administered on 12/19/16 16:20; Admin Dose 650 MG; Start 12/18/16 at 23:00 Atorvastatin Calcium (Lipitor) 40 mg QHS GTB Last administered on 12/20/16 22: 07; Admin Dose 40 MG; Start 12/19/16 at 21:00 Bisacodyl (Dulcolax Supp) 10 mg Q2D [place] Last administered on 12/20/16 22:06; Admin Dose 10 MG; Start 12/18/16 at 23:00 Chlorhexidine Gluconate (Peridex) 15 ml Q12H MM Last administered on 12/21/16 11:17; Admin Dose 15 ML; Start 12/18/16 at 23:00 Digoxin (Digoxin) 0.125 mg Q48H GTB Last administered on 12/19/16 12:28; Admin Dose 0.125 MG; Start 12/19/16 at 13:00 Labetalol HCl (Normodyne) 50 mg Q6H GTB Last administered on 12/21/16 06:22; Admin Dose 50 MG; Start 12/18/16 at 23:00 Lansoprazole (Prevacid) 30 mg DAILY GTB Last administered on 12/21/16 09:20; Admin Dose 30 MG; Start 12/19/16 at 09:00 Losartan Potassium (Cozaar) 100 mg DAILY GTB Last administered on 12/21/16 09: 22; Admin Dose 100 MG; Start 12/19/16 at 09:00 Magnesium Hydroxide (Milk Of Mag) 30 ml DAILY GTB Last administered on 09:22; Admin Dose 30 ML; Start 12/19/16 at 09:00 Metoprolol Tartrate (Lopressor) 50 mg BID GTB Last administered on 12/21/16 09 :21; Admin Dose 50 MG; Start 12/19/16 at 09:00 Ondansetron HCl (Zofran Tab) 4 mg Q6H PRN GTB NAUSEA AND/OR VOMITING; Start at 23:00 Sodium Biphosphate/ Sodium Phosphate (Fleet Enema Pediatric) 66.6 ml Q3D PRN [place] CONSTIPATION; Start 12/18/16 at 23:00 Spironolactone (Aldactone) 25 mg BID GTB Last administered on 12/21/16 09:20; Admin Dose 25 MG; Start 12/19/16 at 09:00 Vancomycin HCl 125 mg 125 mg Q6 PO Last administered on 12/21/16 11:18; Admin Dose 125 MG; Start 12/19/16 at 00:00 Meropenem (Merrem 500 Mg/ 100 ml (Pmx)) 100 ml @ 200 mls/hr Q12 IVPB Last administered on 12/21/16 09:20; Admin Dose 200 MLS/HR; Start 12/20/16 at 21:00 Diltiazem HCl (Cardizem Sr) 60 mg TID PO ; Start 12/21/16 at 13:00 NICOLAS VASQUEZ 24, 2017 12:21
--- NOTE | 2016-12-21 12:47 | CONS ---
Date/Time of Note Date/Time of Note DATE: 12/21/16 TIME: 12:46 Assessment/Plan Assessment/Plan Chief Complaint/Hosp Course SUBJECTIVE: No events overnight. The patient is awake, nad. No fevers. MICROBIOLOGY: Urine culture growing Pseudomonas species. Blood cultures negative. Stool cultures negative. ANTIMICROBIALS: Oral vancomycin, Merrem. INDWELLINGS: Trach, PEG. PHYSICAL EXAMINATION: GENERAL: This is an obese, chronically ill-appearing, elderly woman, who is nonverbal, noncommunicative. The patient is in no distress. HEENT: Head atraumatic, normocephalic. Sclerae are anicteric. Buccal mucosa dry. NECK: Supple. CHEST: Chest rise is symmetrical. Breath sounds diminished to the bases. HEART: S1, S2. ABDOMEN: Soft, bowel tones present. EXTREMITIES: Without cyanosis. ASSESSMENT: 1. Acute anemia with gastrointestinal bleeding. Status post blood transfusion. Pending colonoscopy. 2. Pseudomonas aeruginosa urinary tract infection vs colonization. 3. Clostridium difficile colitis, in treatment. 4. Respiratory failure, chronic. 5. Congestive heart failure. 6. Atrial fibrillation. PLAN: The patient remains stable. Change Merrem to Tobramycin Problems: Consultation Date/Type/Reason Admit Date/Time Dec 18, 2016 at 16:05 Initial Consult Date 12/19/16 Type of Consultation: ID Referring Provider: NIRMALA TAVAREZ DO Exam/Review of Systems Vital Signs Vitals Vital Signs Date Time Temp Pulse Resp B/P Pulse Ox O2 Delivery O2 Flow Rate FiO2 12/21/16 11:53 71 18 185/85 98 Trach Collar 12/21/16 11:10 40 12/21/16 07:30 98.6 Intake and Output 12/20/16 12/20/16 12/21/16 15:00 23:00 07:00 Intake Total 2700 ml 1850 ml Balance 2700 ml 1850 ml Results Result Diagram: 12/21/16 0530 12/21/16 0530 Results 24 hrs Laboratory Tests Test 12/21/16 05:30 White Blood Count 9.2 # Red Blood Count 3.19 L Hemoglobin 9.3 L Hematocrit 29.4 L Mean Corpuscular Volume 92.2 Mean Corpuscular Hemoglobin 29.2 Mean Corpuscular Hemoglobin Concent 31.6 L Red Cell Distribution Width 21.5 H Platelet Count 203 Mean Platelet Volume 9.9 Neutrophils % 78.0 H Lymphocytes % 11.5 L Monocytes % 6.3 Eosinophils % 3.4 Basophils % 0.4 Nucleated Red Blood Cells % 1.2 H Neutrophils # 7.2 Lymphocytes # 1.1 Monocytes # 0.6 Eosinophils # 0.3 Basophils # 0.0 Nucleated Red Blood Cells # 0.1 H Prothrombin Time 18.4 #H Prothrombin Time Ratio 1.4 INR International Normalized Ratio 1.52 Sodium Level 139 Potassium Level 3.9 Chloride Level 98 Carbon Dioxide Level 30 Anion Gap 15 Blood Urea Nitrogen 26 H Creatinine 0.58 Glucose Level 104 Calcium Level 8.9 Magnesium Level 1.8 Total Bilirubin 0.6 Direct Bilirubin 0.00 Indirect Bilirubin 0.6 Aspartate Amino Transf (AST/SGOT) 28 Alanine Aminotransferase (ALT/SGPT) 35 Alkaline Phosphatase 96 B-Type Natriuretic Peptide 7630 H Total Protein 7.2 Albumin 3.2 L Globulin 4.00 H Albumin/Globulin Ratio 0.80 Free Thyroxine 0.85 Digoxin Level 0.7 L Medications Medications Current Medications Acetaminophen (Tylenol Liquid) 650 mg Q6H PRN GTB MILD DISCOMFORT Last administered on 12/19/16 16:20; Admin Dose 650 MG; Start 12/18/16 at 23:00 Atorvastatin Calcium (Lipitor) 40 mg QHS GTB Last administered on 12/20/16 22: 07; Admin Dose 40 MG; Start 12/19/16 at 21:00 Bisacodyl (Dulcolax Supp) [address] Last administered on 12/20/16 22:06; Admin Dose 10 MG; Start 12/18/16 at 23:00 Chlorhexidine Gluconate (Peridex) 15 ml Q12H MM Last administered on 12/21/16 11:17; Admin Dose 15 ML; Start 12/18/16 at 23:00 Digoxin (Digoxin) 0.125 mg Q48H GTB Last administered on 12/19/16 12:28; Admin Dose 0.125 MG; Start 12/19/16 at 13:00 Labetalol HCl (Normodyne) 50 mg Q6H GTB Last administered on 12/21/16 06:22; Admin Dose 50 MG; Start 12/18/16 at 23:00 Lansoprazole (Prevacid) 30 mg DAILY GTB Last administered on 12/21/16 09:20; Admin Dose 30 MG; Start 12/19/16 at 09:00 Losartan Potassium (Cozaar) 100 mg DAILY GTB Last administered on 12/21/16 09: 22; Admin Dose 100 MG; Start 12/19/16 at 09:00 Magnesium Hydroxide (Milk Of Mag) 30 ml DAILY GTB Last administered on 09:22; Admin Dose 30 ML; Start 12/19/16 at 09:00 Metoprolol Tartrate (Lopressor) 50 mg BID GTB Last administered on 12/21/16 09 :21; Admin Dose 50 MG; Start 12/19/16 at 09:00 Ondansetron HCl (Zofran Tab) 4 mg Q6H PRN GTB NAUSEA AND/OR VOMITING; Start at 23:00 Sodium Biphosphate/ Sodium Phosphate (Fleet Enema Pediatric) 66.[address] CONSTIPATION; Start 12/18/16 at 23:00 Spironolactone (Aldactone) 25 mg BID GTB Last administered on 12/21/16 09:20; Admin Dose 25 MG; Start 12/19/16 at 09:00 Vancomycin HCl 125 mg 125 mg Q6 PO Last administered on 12/21/16 11:18; Admin Dose 125 MG; Start 12/19/16 at 00:00 Meropenem (Merrem 500 Mg/ 100 ml (Pmx)) 100 ml @ 200 mls/hr Q12 IVPB Last administered on 12/21/16 09:20; Admin Dose 200 MLS/HR; Start 12/20/16 at 21:00 Diltiazem HCl (Cardizem Sr) 60 mg TID PO ; Start 12/21/16 at 13:00 NIKOLAS WATTS NP Dec 21, 2016 12:47
[2016-12-21] MEDS ORDERED: TOBRAMYCIN IV PER PHARMACY XX SCH (13:00)
[2016-12-21] MEDS: DIGOXIN 0.125 MG TAB GTB SCH (13:21)
--- NOTE | 2016-12-21 13:33 | GILP ---
DATE OF PROCEDURE: 12/21/2016 PROCEDURE PERFORMED: EGD with biopsy and colonoscopy. INDICATION: An 86-year-old female undergoing this procedure for anemia and positive stool guaiac. INFORMED CONSENT: The risk of the procedure, related and unrelated complications, anesthetic risks, alternatives discussed and informed consent was obtained. DESCRIPTION OF PROCEDURE: The procedure was done bedside. Patient was sedated by the [employer]. After optimum sedation, scope was passed with much ease into esophagus which was grossly within normal rojo its. Z line was at 35 cm. The patient had a 4 cm hiatal hernia. Stomach mucosa revealed moderate to severe gastritis. Multiple biopsies taken to rule out H. pylori infection. Duodenum, first and second part including the ampulla appeared normal. Retroflexion confirmed the hiatal hernia and the gastritis. Scope was straightened out and removed with good patient tolerance. IMPRESSION 1. Moderate to severe gastritis involving the entire stomach. 2. Normal esophagus. 3. A 4 cm hiatal hernia. 4. Normal duodenum and ampulla. Plan is to continue PPI, pending histopathology report. COLONOSCOPY: The patient was turned around. Digital examination was normal. Scope was passed with much ease into the rectum. Endoscope was used. Advanced slowly all the way into cecum. Appendice al orifice and IC valve identified. Placement of multiple petechial spots in the cecum. The rest o f the colon appeared normal. There was somewhat poor prep, occluding the visibility by 15 to 20% at different side but grossly it was normal. No diverticula. No growths were seen. Patient had mode rate to large size hemorrhoids. IMPRESSION: 1. Moderate to large size hemorrhoids. 2. Diminutive polyp in the transverse colon. 3. Negative all the way into the cecum except for multiple petechial spots in the cecum. 4. Somewhat poor to inadequate prep. PLAN: To continue present care. We will work her up for the anemia. Positive stool guaiac could h ave been secondary to the hemorrhoids. We need to find out also some other cause for the anemia. Dictated By: MARY SAXENA/TONIO Conf#: [id number] DID#: [id number] CC: NIRMALA TAVAREZ DO; MARY PAYNE MD;*End*
[2016-12-21] MEDS ORDERED: TOBRAMYCIN 300 MG in SOD CHLORIDE 0.9% 100 ML IVPB SCH (15:00)
[2016-12-21] MEDS ORDERED: LIDOCAINE 100 MG SYRINGE ONE (15:18)
[2016-12-21] MEDS ORDERED: PROPOFOL 20 ML ONE (15:18)
[2016-12-21] MEDS: TOBRAMYCIN 80 MG in SOD CHLORIDE 0.9% 50 ML IVPB SCH (17:16)
[2016-12-21] MEDS: ATORVASTATIN 40 MG TAB GTB SCH (20:09)
[2016-12-21 21:22] LABS: ALBUMIN 2.9 g/dL (3.8-4.8)
--- NOTE | 2016-12-21 23:48 | CONS ---
Date/Time of Note Date/Time of Note DATE: 12/21/16 TIME: 23:48 Assessment/Plan Assessment/Plan Chief Complaint/Hosp Course Anemia- n- cytic with increased rdw no evidence of B12 deficiency pos gastrointestinal bleed Will continue to monitor. POST EGD and colonoscopy. POST Acute lower gastrointestinal bleed. The patient is status post blood transfusion. Hemoglobin levels remain stable. POST EGD and colonoscopy Atrial fibrillation, currently rate controlled. Continue the current medical management and follow up with cardiology. Anticoagulation is being held at this time. Sepsis secondary to a recent urinary tract infection and Clostridium difficile colitis. The patient's repeat stool for C. diff was negative. The patient remains on oral vancomycin. Follow up with infectious disease. Ventilatory-dependent respiratory failure. Dysphagia. Status post PEG. Continue tube feeding. Acute systolic and diastolic heart failure. The patient is currently decompensated. Continue medical management. Continue diuretic therapy. Acute on chronic encephalopathy. Etiology is toxic metabolic. The patient's mental status appears to be improving. Continue to monitor. History of cerebrovascular accident. Continue medical management. Hypertension. Continue current blood pressure regimen. Hypothyroidism. The patient's CCH remains elevated. Will increase Synthroid to 150 mcg daily. Renal insufficiency. Improved. Continue supportive care. Mild hyperkalemia. Resolved. Shingles. The patient is status post Valtrex. Gastrointestinal and deep venous thrombosis prophylaxis. Continue proton pump inhibitor and sequential leg squeezers. Problems: Consultation Date/Type/Reason Admit Date/Time Dec 18, 2016 at 16:05 Initial Consult Date 12/19/16 Type of Consultation: [facility] Referring Provider: NIRMALA TAVAREZ DO 24 HR Interval Summary Free Text/Dictation POST EGD with biopsy and colonoscopy. 1. Moderate to severe gastritis involving the entire stomach. 2. Normal esophagus. 3. A 4 cm hiatal hernia. 4. Normal duodenum and ampulla. IMPRESSION: 1. Moderate to large size hemorrhoids. 2. Diminutive polyp in the transverse colon. 3. Negative all the way into the cecum except for multiple petechial spots in the cecum. 4. Somewhat poor to inadequate prep. Exam/Review of Systems Vital Signs Vitals Vital Signs Date Time Temp Pulse Resp B/P Pulse Ox O2 Delivery O2 Flow Rate FiO2 12/21/16 23:20 97.9 22 136/64 96 12/21/16 20:32 69 12/21/16 20:31 40 12/21/16 13:12 Trach Collar Intake and Output 12/20/16 12/20/16 12/21/16 15:00 23:00 07:00 Intake Total 2700 ml 1850 ml Balance 2700 ml 1850 ml Exam HEENT: Head is normocephalic. NECK: Supple. HEART: Regular rate. LUNGS: Show diminished breath sounds at the base. ABDOMEN: Soft, nontender to palpation. No rebound or guarding. EXTREMITIES: Negative for clubbing, cyanosis, no edema. DERMATOLOGIC: No rashes. MUSCULOSKELETAL: No joint effusions. NEUROLOGIC: No change in exam. Results Result Diagram: 12/21/16 0530 12/21/16 0530 Results 24 hrs Laboratory Tests Test 12/21/16 05:30 White Blood Count 9.2 # Red Blood Count 3.19 L Hemoglobin 9.3 L Hematocrit 29.4 L Mean Corpuscular Volume 92.2 Mean Corpuscular Hemoglobin 29.2 Mean Corpuscular Hemoglobin Concent 31.6 L Red Cell Distribution Width 21.5 H Platelet Count 203 Mean Platelet Volume 9.9 Neutrophils % 78.0 H Lymphocytes % 11.5 L Monocytes % 6.3 Eosinophils % 3.4 Basophils % 0.4 Nucleated Red Blood Cells % 1.2 H Neutrophils # 7.2 Lymphocytes # 1.1 Monocytes # 0.6 Eosinophils # 0.3 Basophils # 0.0 Nucleated Red Blood Cells # 0.1 H Prothrombin Time 18.4 #H Prothrombin Time Ratio 1.4 INR International Normalized Ratio 1.52 Sodium Level 139 Potassium Level 3.9 Chloride Level 98 Carbon Dioxide Level 30 Anion Gap 15 Blood Urea Nitrogen 26 H Creatinine 0.58 Glucose Level 104 Calcium Level 8.9 Magnesium Level 1.8 Total Bilirubin 0.6 Direct Bilirubin 0.00 Indirect Bilirubin 0.6 Aspartate Amino Transf (AST/SGOT) 28 Alanine Aminotransferase (ALT/SGPT) 35 Alkaline Phosphatase 96 B-Type Natriuretic Peptide 7630 H Total Protein 7.2 Albumin 3.2 L Globulin 4.00 H Albumin/Globulin Ratio 0.80 Free Thyroxine 0.85 Digoxin Level 0.7 L Medications Medications Current Medications Acetaminophen (Tylenol Liquid) 650 mg Q6H PRN GTB MILD DISCOMFORT Last administered on 12/19/16t 16:20; Admin Dose 650 MG; Start 12/18/16 at 23:00 Atorvastatin Calcium (Lipitor) 40 mg QHS GTB Last administered on 12/21/16 20: 09; Admin Dose 40 MG; Start 12/19/16 at 21:00 Bisacodyl (Dulcolax Supp) 10 mg Q2D [place] Last administered on 12/20/16 22:06; Admin Dose 10 MG; Start 12/18/16 at 23:00 Chlorhexidine Gluconate (Peridex) 15 ml Q12H MM Last administered on 12/21/16 11:17; Admin Dose 15 ML; Start 12/18/16 at 23:00 Digoxin (Digoxin) 0.125 mg Q48H GTB Last administered on 12/21/16 13:21; Admin Dose 0.125 MG; Start 12/19/16 at 13:00 Labetalol HCl (Normodyne) 50 mg Q6H GTB Last administered on 12/21/16 16:31; Admin Dose 50 MG; Start 12/18/16 at 23:00 Lansoprazole (Prevacid) 30 mg DAILY GTB Last administered on 12/21/16 09:20; Admin Dose 30 MG; Start 12/19/16 at 09:00 Losartan Potassium (Cozaar) 100 mg DAILY GTB Last administered on 12/21/16 09: 22; Admin Dose 100 MG; Start 12/19/16 at 09:00 Magnesium Hydroxide (Milk Of Mag) 30 ml DAILY GTB Last administered on 09:22; Admin Dose 30 ML; Start 12/19/16 at 09:00 Metoprolol Tartrate (Lopressor) 50 mg BID GTB Last administered on 12/21/16 20 :09; Admin Dose 50 MG; Start 12/19/16 at 09:00 Ondansetron HCl (Zofran Tab) 4 mg Q6H PRN GTB NAUSEA AND/OR VOMITING; Start at 23:00 Sodium Biphosphate/ Sodium Phosphate (Fleet Enema Pediatric) 66.6 ml Q3D PRN [place] CONSTIPATION; Start 12/18/16 at 23:00 Spironolactone (Aldactone) 25 mg BID GTB Last administered on 12/21/16 20:09; Admin Dose 25 MG; Start 12/19/16 at 09:00 Vancomycin HCl (Vancomycin Oral Syringe) 125 mg Q6 PO Last administered on 12/21 17:11; Admin Dose 125 MG; Start 12/19/16 at 00:00 Diltiazem HCl (Cardizem Sr) 60 mg TID PO Last administered on 12/21/16 20:10; Admin Dose 60 MG; Start 12/21/16 at 13:00 Tobramycin TOBRAMYCIN PER PHARMACY NOTE XX ; Start 12/21/16 at 13:00 Tobramycin/Sodium Chloride (Tobramycin/NS) 52 ml @ 104 mls/hr Q24H IVPB Last administered on 12/21/16 17:16; Admin Dose 104 MLS/HR; Start 12/21/16 at 18:00 DANELLE LEHMAN MD Dec 21, 2016 23:48
[2016-12-22] VITALS (24 sets, daily range): BP systolic 116–165; BP diastolic 55–74; PULSE 40–84; RESP 13–22
[2016-12-22] MEDS: CHLORHEXIDINE GLUCONATE 15 ML UD CUP MM SCH ×2 (01:19→13:10)
[2016-12-22] MEDS: VANCOMYCIN HCL 250 MG/5ML POSYG PO SCH ×4 (01:20→17:58)
[2016-12-22] MEDS: LABETALOL 100 MG TAB GTB SCH ×4 (01:20→16:58)
[2016-12-22] MEDS: CALCIUM CARBONATE 1.25 GM TAB GTB SCH ×2 (05:37→17:08)
[2016-12-22] MEDS: FUROSEMIDE 40 MG TAB GTB SCH ×2 (05:37→17:08)
[2016-12-22] MEDS: LEVOTHYROXINE 150 MCG TAB GTB SCH (05:49)
[2016-12-22 06:27] LABS: ADD SCAN DIFF NO
[2016-12-22 06:31] LABS: BASOPHILS % 0.5 % (0.0-2.0); EOSINOPHILS # 0.3 10^3/ul (0.0-0.5); EOSINOPHILS % 3.6 % (0.0-7.0); HEMATOCRIT 30.4 % (37.0-47.0); HEMOGLOBIN 9.9 g/dl (12.0-16.0); LYMPHOCYTES # 1.2 10^3/ul (0.8-2.9); LYMPHOCYTES % 14.5 % (15.0-51.0); MEAN CORPUSCULAR HGB CONC 32.6 g/dl (32.0-37.0); MEAN CORPUSCULAR VOLUME 92.1 fl (82.0-101.0); MONOCYTE # 0.5 10^3/ul (0.3-0.9); MONOCYTES % 6.2 % (0.0-11.0); NEUTROPHILS % 74.7 % (39.0-77.0); NUCLEATED RED BLOOD CELLS # 0.1 10^3/ul (0.0-0.0); NUCLEATED RED BLOOD CELLS% 0.9 /100WBC (0.0-0.0); PLATELET COUNT 231 10^3/UL (140-415); RED CELL DISTRIBUTION WIDTH 21.6 % (11.5-14.5); WHITE BLOOD COUNT 8.1 10^3/ul (4.8-10.8)
[2016-12-22 07:33] LABS: CALCIUM 8.9 mg/dl (8.4-10.2); CREATININE 0.63 mg/dl (0.44-1.00); PHOSPHORUS 2.5 mg/dl (2.5-4.9); POTASSIUM 3.8 mmol/L (3.5-5.1)
[2016-12-22] MEDS: MAGNESIUM HYDROXIDE 30ML CUP GTB SCH (08:56)
[2016-12-22] MEDS: LOSARTAN 50 MG TAB GTB SCH (08:56)
[2016-12-22] MEDS: LANSOPRAZOLE 30 MG CAP GTB SCH (08:56)
[2016-12-22] MEDS: METOPROLOL 50 MG TAB GTB SCH ×2 (08:57→21:12)
[2016-12-22] MEDS: DILTIAZEM (SR) 60 MG CAP PO SCH ×3 (08:57→21:11)
[2016-12-22] MEDS: SPIRONOLACTONE 25 MG TAB GTB SCH ×2 (08:57→21:11)
--- NOTE | 2016-12-22 09:32 | PN ---
DATE: 12/22/2016 SUBJECTIVE: Yesterday, the patient had an EGD, colonoscopy performed which showed moderate to larg e hemorrhoids, polyp. Severe gastritis. No other acute events noted. No hemoptysis, hematemesis o r hematochezia. OBJECTIVE: VITAL SIGNS: Blood pressure 133/64, respirations 22, pulse 85, temperature 98.6. HEENT: Head is normocephalic. NECK: Supple. HEART: Regular rate. LUNGS: Show diminished breath sounds at base. ABDOMEN: Soft, nontender to palpation. No rebound or guarding. EXTREMITIES: Negative for clubbing, cyanosis, no edema. DERMATOLOGIC: No rashes. MUSCULOSKELETAL: No joint effusions. NEUROLOGIC: No change in exam. MEDICATIONS: The patient's medications have been reviewed. LABORATORY DATA: Sodium 138, potassium 3.8, chloride 96, BUN 24, creatinine 0.63, white count 8.1, hemoglobin 9.9, hematocrit 30.4, platelet count is 231. ASSESSMENT AND PLAN: 1. Acute lower gastrointestinal bleed, etiology is likely hemorrhoidal in nature. The patient is s tatus post blood transfusions. The patient is status post esophagogastroduodenoscopy and colonoscop y, that showed evidence of hemorrhoids and gastritis. No further active bleeding. 2. Atrial fibrillation, rate controlled. Continue current medical management. We will [facility]. The patient may be resumed on anticoagulation. 3. Sepsis secondary to urinary tract infection and Clostridium difficile colitis. Continue current antibiotic regimen. Follow up with Infectious Disease. 4. Ventilatory-dependent respiratory failure. Vent settings have been reviewed. ABGs have been re viewed. Continue to monitor. 5. Dysphagia, status post PEG. Continue tube feeding. 6. Acute systolic, diastolic heart failure. The patient is currently decompensated. Continue [facility] management. Continue diuretic therapy. 7. Acute on chronic encephalopathy, etiology is toxic metabolic. The patient's mental status is im proved. Continue current treatment plan. 8. Anemia secondary to gastrointestinal bleed and chronic disease. Continue to monitor hemoglobin and hematocrit levels. 9. History of cerebrovascular accident. Continue medical management. 10. Hypertension. Continue current blood pressure regimen. 11. Hypothyroidism. The patient's Synthroid was adjusted, and we will recheck TSH level in 2 to 3 weeks. 12. Renal insufficiency, improved. 13. Shingles, status post Valtrex. 14. Gastrointestinal and deep venous thrombosis prophylaxis. Continue proton pump inhibitor and se quential leg squeezers. Dictated By: NIRMALA RODRIGUEZ/TONIO Conf#: [id number] DID#: [id number]
--- NOTE | 2016-12-22 10:11 | CONS ---
Date/Time of Note Date/Time of Note DATE: 12/22/16 TIME: 10:11 Assessment/Plan Assessment/Plan Chief Complaint/Hosp Course ID PROGRESS NOTE TOTAL ABX DAY # => Vanco PO + Tobra #2 s/p Merrem 24H INTERVAL SUMMARY * Currently sleeping per family was awake earlier today * NO fever, VSS, NAD PHYSICAL EXAMINATION: GENERAL: VSS, NAD HEENT: Unremarkable NECK: Trach midline CHEST: Equal chest rise bilaterally, without dyspnea on observation HEART: Pulse RRR ABDOMEN: Soft/peg EXTREMITIES: Warm SKIN: See hard chart skin assessment ID ASSESSMENT: 86 yo F w/PMHx 1. Acute anemia with gastrointestinal bleeding. Status post blood transfusion. Pending colonoscopy. 2. Pseudomonas aeruginosa urinary tract infection vs colonization w/low colony C.Albicans funguria * Blood Cx (-) 3. Clostridium difficile colitis, in treatment. 4. Respiratory failure, chronic. 5. Congestive heart failure. 6. Atrial fibrillation. INVASIVES: PIV ABX ALLERGY: KNDA CURRENT ABX: => Vanco PO + Tobra #2 ID RECOMMENDATIONS: 1. Continue current ABX . Problems: Consultation Date/Type/Reason Admit Date/Time Dec 18, 2016 at 16:05 Initial Consult Date 12/19/16 Type of Consultation: ID Referring Provider: NIRMALA TAVAREZ DO Exam/Review of Systems Vital Signs Vitals Vital Signs Date Time Temp Pulse Resp B/P Pulse Ox O2 Delivery O2 Flow Rate FiO2 12/22/16 08:40 84 12/22/16 07:53 98.6 22 133/64 95 12/22/16 07:50 40 12/21/16 13:12 Trach Collar Intake and Output 12/21/16 12/21/16 12/22/16 15:00 23:00 07:00 Intake Total 100 ml Balance 100 ml Results Result Diagram: 12/22/16 0550 12/22/16 0550 Results 24 hrs Laboratory Tests Test 12/22/16 05:50 White Blood Count 8.1 Red Blood Count 3.30 L Hemoglobin 9.9 L Hematocrit 30.4 L Mean Corpuscular Volume 92.1 Mean Corpuscular Hemoglobin 30.0 Mean Corpuscular Hemoglobin Concent 32.6 Red Cell Distribution Width 21.6 H Platelet Count 231 Mean Platelet Volume 10.0 Neutrophils % 74.7 Lymphocytes % 14.5 L Monocytes % 6.2 Eosinophils % 3.6 Basophils % 0.5 Nucleated Red Blood Cells % 0.9 H Neutrophils # 6.0 Lymphocytes # 1.2 Monocytes # 0.5 Eosinophils # 0.3 Basophils # 0.0 Nucleated Red Blood Cells # 0.1 H Sodium Level 138 Potassium Level 3.8 Chloride Level 96 L Carbon Dioxide Level 29 Anion Gap 17 H Blood Urea Nitrogen 24 H Creatinine 0.63 Glucose Level 144 # Calcium Level 8.9 Phosphorus Level 2.5 Magnesium Level 2.0 Medications Medications Current Medications Acetaminophen (Tylenol Liquid) 650 mg Q6H PRN GTB MILD DISCOMFORT Last administered on 12/19/16 16:20; Admin Dose 650 MG; Start 12/18/16 at 23:00 Atorvastatin Calcium (Lipitor) 40 mg QHS GTB Last administered on 12/21/16 20: 09; Admin Dose 40 MG; Start 12/19/16 at 21:00 Bisacodyl (Dulcolax Supp) 10 mg Q2D [place] Last administered on 12/20/16 22:06; Admin Dose 10 MG; Start 12/18/16 at 23:00 Chlorhexidine Gluconate (Peridex) 15 ml Q12H MM Last administered on 12/22/16 01:19; Admin Dose 15 ML; Start 12/18/16 at 23:00 Digoxin (Digoxin) 0.125 mg Q48H GTB Last administered on 12/21/16 13:21; Admin Dose 0.125 MG; Start 12/19/16 at 13:00 Labetalol HCl (Normodyne) 50 mg Q6H GTB Last administered on 12/22/16 05:38; Admin Dose 50 MG; Start 12/18/16 at 23:00 Lansoprazole (Prevacid) 30 mg DAILY GTB Last administered on 12/22/16 08:56; Admin Dose 30 MG; Start 12/19/16 at 09:00 Losartan Potassium (Cozaar) 100 mg DAILY GTB Last administered on 12/22/16 08: 56; Admin Dose 100 MG; Start 12/19/16 at 09:00 Magnesium Hydroxide (Milk Of Mag) 30 ml DAILY GTB Last administered on 08:56; Admin Dose 30 ML; Start 12/19/16 at 09:00 Metoprolol Tartrate (Lopressor) 50 mg BID GTB Last administered on 12/22/16 08 :57; Admin Dose 50 MG; Start 12/19/16 at 09:00 Ondansetron HCl (Zofran Tab) 4 mg Q6H PRN GTB NAUSEA AND/OR VOMITING; Start at 23:00 Sodium Biphosphate/ Sodium Phosphate (Fleet Enema Pediatric) 66.6 ml Q3D PRN [place] CONSTIPATION; Start 12/18/16 at 23:00 Spironolactone (Aldactone) 25 mg BID GTB Last administered on 12/22/16 08:57; Admin Dose 25 MG; Start 12/19/16 at 09:00 Vancomycin HCl (Vancomycin Oral Syringe) 125 mg Q6 PO Last administered on 12/22 05:48; Admin Dose 125 MG; Start 12/19/16 at 00:00 Diltiazem HCl (Cardizem Sr) 60 mg TID PO Last administered on 12/22/16 08:57; Admin Dose 60 MG; Start 12/21/16 at 13:00 Tobramycin TOBRAMYCIN PER PHARMACY NOTE XX ; Start 12/21/16 at 13:00 Tobramycin/Sodium Chloride (Tobramycin/NS) 52 ml @ 104 mls/hr Q24H IVPB Last administered on 12/21/16 17:16; Admin Dose 104 MLS/HR; Start 12/21/16 at 18:00 Miscellaneous Information (*Rx Drug Level Order Reminder*) TOBRAMYCIN TROUGH AT 1700 ONCE ONCE XX ; Start 12/23/16 at 17:00; Stop 12/23/16 at 17:01 SABINO FONTANEZ NP Dec 22, 2016 10:11
--- NOTE | 2016-12-22 12:41 | CONS ---
Date/Time of Note Date/Time of Note DATE: 12/22/16 TIME: 12:39 Assessment/Plan Assessment/Plan Additional Assessment/Plan IMPRESSION: 1. Gastritis and Hemorrhoids 2. Clostridium difficile colitis. The patient is on vancomycin. 3. Shingles. 4. Ventilator-dependent respiratory failure. 5. Chronic atrial fibrillation. 6. Cerebrovascular accident. 7. Encephalopathy. 8. Pneumonia. 9. Hypertension. 10. Hypothyroidism. Plan continue present care ok to start on blood thinner and monitor for bleeding Consultation Date/Type/Reason Admit Date/Time Dec 18, 2016 at 16:05 Initial Consult Date 12/19/16 Type of Consultation: ID Referring Provider: NIRMALA TAVAREZ DO 24 HR Interval Summary Constitutional: no complaints Exam/Review of Systems Vital Signs Vitals Vital Signs Date Time Temp Pulse Resp B/P Pulse Ox O2 Delivery O2 Flow Rate FiO2 12/22/16 12:11 98.6 58 19 165/74 96 12/22/16 11:25 40 12/21/16 13:12 Trach Collar Intake and Output 12/21/16 12/21/16 12/22/16 15:00 23:00 07:00 Intake Total 100 ml Balance 100 ml Exam Constitutional: alert, oriented, well developed Psych: nl mood/affect, no complaints Head: atraumatic, normocephalic Eyes: EOMI, PERRL, nl conjunctiva, nl lids, nl sclera ENMT: nl external ears & nose, nl lips & teeth, nl nasal mucosa & septum Neck: non-tender, supple Respiratory: clear to auscultation, normal air movement Cardiovascular: nl pulses, regular rate and rhythm Gastrointestinal: nl liver, spleen, non-tender, soft Musculoskeletal: nl extremities to inspection, nl gait and stance Extremities: normal pulses Neurological: CREW MEMBER II-XII intact, nl mental status, nl speech, nl strength Skin: nl turgor, No rash or lesions Lymph: nl lymph nodes Results Result Diagram: 12/22/16 0550 12/22/16 0550 Results 24 hrs Laboratory Tests Test 12/22/16 05:50 White Blood Count 8.1 Red Blood Count 3.30 L Hemoglobin 9.9 L Hematocrit 30.4 L Mean Corpuscular Volume 92.1 Mean Corpuscular Hemoglobin 30.0 Mean Corpuscular Hemoglobin Concent 32.6 Red Cell Distribution Width 21.6 H Platelet Count 231 Mean Platelet Volume 10.0 Neutrophils % 74.7 Lymphocytes % 14.5 L Monocytes % 6.2 Eosinophils % 3.6 Basophils % 0.5 Nucleated Red Blood Cells % 0.9 H Neutrophils # 6.0 Lymphocytes # 1.2 Monocytes # 0.5 Eosinophils # 0.3 Basophils # 0.0 Nucleated Red Blood Cells # 0.1 H Sodium Level 138 Potassium Level 3.8 Chloride Level 96 L Carbon Dioxide Level 29 Anion Gap 17 H Blood Urea Nitrogen 24 H Creatinine 0.63 Glucose Level 144 # Calcium Level 8.9 Phosphorus Level 2.5 Magnesium Level 2.0 Medications Medications Current Medications Acetaminophen (Tylenol Liquid) 650 mg Q6H PRN GTB MILD DISCOMFORT Last administered on 12/19/16 16:20; Admin Dose 650 MG; Start 12/18/16 at 23:00 Atorvastatin Calcium (Lipitor) 40 mg QHS GTB Last administered on 12/21/16 20: 09; Admin Dose 40 MG; Start 12/19/16 at 21:00 Bisacodyl (Dulcolax Supp) 10 mg Q2D [place] Last administered on 12/20/16 22:06; Admin Dose 10 MG; Start 12/18/16 at 23:00 Chlorhexidine Gluconate (Peridex) 15 ml Q12H MM Last administered on 12/22/16 01:19; Admin Dose 15 ML; Start 12/18/16 at 23:00 Digoxin (Digoxin) 0.125 mg Q48H GTB Last administered on 12/21/16 13:21; Admin Dose 0.125 MG; Start 12/19/16 at 13:00 Labetalol HCl (Normodyne) 50 mg Q6H GTB Last administered on 12/22/16 05:38; Admin Dose 50 MG; Start 12/18/16 at 23:00 Lansoprazole (Prevacid) 30 mg DAILY GTB Last administered on 12/22/16 08:56; Admin Dose 30 MG; Start 12/19/16 at 09:00 Losartan Potassium (Cozaar) 100 mg DAILY GTB Last administered on 12/22/16 08: 56; Admin Dose 100 MG; Start 12/19/16 at 09:00 Magnesium Hydroxide (Milk Of Mag) 30 ml DAILY GTB Last administered on 08:56; Admin Dose 30 ML; Start 12/19/16 at 09:00 Metoprolol Tartrate (Lopressor) 50 mg BID GTB Last administered on 12/22/16 08 :57; Admin Dose 50 MG; Start 12/19/16 at 09:00 Ondansetron HCl (Zofran Tab) 4 mg Q6H PRN GTB NAUSEA AND/OR VOMITING; Start at 23:00 Sodium Biphosphate/ Sodium Phosphate (Fleet Enema Pediatric) 66.6 ml Q3D PRN [place] CONSTIPATION; Start 12/18/16 at 23:00 Spironolactone (Aldactone) 25 mg BID GTB Last administered on 12/22/16 08:57; Admin Dose 25 MG; Start 12/19/16 at 09:00 Vancomycin HCl (Vancomycin Oral Syringe) 125 mg Q6 PO Last administered on 12/22 05:48; Admin Dose 125 MG; Start 12/19/16 at 00:00 Diltiazem HCl (Cardizem Sr) 60 mg TID PO Last administered on 12/22/16 08:57; Admin Dose 60 MG; Start 12/21/16 at 13:00 Tobramycin TOBRAMYCIN PER PHARMACY NOTE XX ; Start 12/21/16 at 13:00 Tobramycin/Sodium Chloride (Tobramycin/NS) 52 ml @ 104 mls/hr Q24H IVPB Last administered on 12/21/16 17:16; Admin Dose 104 MLS/HR; Start 12/21/16 at 18:00 Miscellaneous Information (*Rx Drug Level Order Reminder*) TOBRAMYCIN TROUGH AT 1700 ONCE ONCE XX ; Start 12/23/16 at 17:00; Stop 12/23/16 at 17:01 MARY PAYNE MD Dec 22, 2016 12:41
--- NOTE | 2016-12-22 15:50 | CONS ---
Date/Time of Note Date/Time of Note DATE: 12/22/16 TIME: 15:48 Assessment/Plan Assessment/Plan Additional Assessment/Plan Data settings; AC of 12, tidal volume 500, PEEP of 5, 30% FiO2. Assessment recommendations; 1. Patient admitted for anemia status post blood transfusion with stable hematocrit. 2. Chronic respiratory failure due to CVA. Patient remains ventilator dependent. 3. Atrial fibrillation. 4. Hypothyroidism. Continue current treatment. Patient can be transferred back to the shelter. Consultation Date/Type/Reason Admit Date/Time Dec 18, 2016 at 16:05 Initial Consult Date 12/19/16 Type of Consultation: Pulmonary Referring Provider: NIRMALA TAVAREZ DO 24 HR Interval Summary Free Text/Dictation Patient condition remains stable. Has remained hemodynamically stable. Remains unresponsive due to anoxic brain injury. But awake. General exam; elderly lady, on ventilator via tracheostomy currently in no distress. Exam/Review of Systems Vital Signs Vitals Vital Signs Date Time Temp Pulse Resp B/P Pulse Ox O2 Delivery O2 Flow Rate FiO2 12/22/16 15:15 98.8 52 16 116/55 98 12/22/16 13:05 30 12/21/16 13:12 Trach Collar Intake and Output 12/21/16 12/21/16 12/22/16 15:00 23:00 07:00 Intake Total 100 ml Balance 100 ml Exam HEENT examination; supple neck, no JVD. No lymphadenopathy. Midline trachea. No thyromegaly. Tracheostomy in place. With clean insertion site. Chest examination; diminished but clear breath sounds bilaterally. S1-S2 audible no murmurs. Regular rhythm. Abdomen examination; soft, nondistended. No organomegaly. Bowel sounds audible. G-tube in place. Extremity exam is; no peripheral edema. SKIVER MACHINE examination : patient is awake, able to move left upper extremity spontaneously. Does not follow any commands. Results Result Diagram: 12/22/16 0550 12/22/16 0550 Results 24 hrs Laboratory Tests Test 12/22/16 05:50 White Blood Count 8.1 Red Blood Count 3.30 L Hemoglobin 9.9 L Hematocrit 30.4 L Mean Corpuscular Volume 92.1 Mean Corpuscular Hemoglobin 30.0 Mean Corpuscular Hemoglobin Concent 32.6 Red Cell Distribution Width 21.6 H Platelet Count 231 Mean Platelet Volume 10.0 Neutrophils % 74.7 Lymphocytes % 14.5 L Monocytes % 6.2 Eosinophils % 3.6 Basophils % 0.5 Nucleated Red Blood Cells % 0.9 H Neutrophils # 6.0 Lymphocytes # 1.2 Monocytes # 0.5 Eosinophils # 0.3 Basophils # 0.0 Nucleated Red Blood Cells # 0.1 H Sodium Level 138 Potassium Level 3.8 Chloride Level 96 L Carbon Dioxide Level 29 Anion Gap 17 H Blood Urea Nitrogen 24 H Creatinine 0.63 Glucose Level 144 # Calcium Level 8.9 Phosphorus Level 2.5 Magnesium Level 2.0 Medications Medications Current Medications Acetaminophen (Tylenol Liquid) 650 mg Q6H PRN GTB MILD DISCOMFORT Last administered on 12/19/16 16:20; Admin Dose 650 MG; Start 12/18/16 at 23:00 Atorvastatin Calcium (Lipitor) 40 mg QHS GTB Last administered on 12/21/16 20: 09; Admin Dose 40 MG; Start 12/19/16 at 21:00 Bisacodyl (Dulcolax Supp) 10 mg Q2D [place] Last administered on 12/20/16 22:06; Admin Dose 10 MG; Start 12/18/16 at 23:00 Chlorhexidine Gluconate (Peridex) 15 ml Q12H MM Last administered on 12/22/16 13:10; Admin Dose 15 ML; Start 12/18/16 at 23:00 Digoxin (Digoxin) 0.125 mg Q48H GTB Last administered on 12/21/16 13:21; Admin Dose 0.125 MG; Start 12/19/16 at 13:00 Labetalol HCl (Normodyne) 50 mg Q6H GTB Last administered on 12/22/16 13:10; Admin Dose 50 MG; Start 12/18/16 at 23:00 Lansoprazole (Prevacid) 30 mg DAILY GTB Last administered on 12/22/16 08:56; Admin Dose 30 MG; Start 12/19/16 at 09:00 Losartan Potassium (Cozaar) 100 mg DAILY GTB Last administered on 12/22/16 08: 56; Admin Dose 100 MG; Start 12/19/16 at 09:00 Magnesium Hydroxide (Milk Of Mag) 30 ml DAILY GTB Last administered on 08:56; Admin Dose 30 ML; Start 12/19/16 at 09:00 Metoprolol Tartrate (Lopressor) 50 mg BID GTB Last administered on 12/22/16 08 :57; Admin Dose 50 MG; Start 12/19/16 at 09:00 Ondansetron HCl (Zofran Tab) 4 mg Q6H PRN GTB NAUSEA AND/OR VOMITING; Start at 23:00 Sodium Biphosphate/ Sodium Phosphate (Fleet Enema Pediatric) 66.6 ml Q3D PRN [place] CONSTIPATION; Start 12/18/16 at 23:00 Spironolactone (Aldactone) 25 mg BID GTB Last administered on 12/22/16 08:57; Admin Dose 25 MG; Start 12/19/16 at 09:00 Vancomycin HCl (Vancomycin Oral Syringe) 125 mg Q6 PO Last administered on 12/22 13:10; Admin Dose 125 MG; Start 12/19/16 at 00:00 Diltiazem HCl (Cardizem Sr) 60 mg TID PO Last administered on 12/22/16 13:10; Admin Dose 60 MG; Start 12/21/16 at 13:00 Tobramycin TOBRAMYCIN PER PHARMACY NOTE XX ; Start 12/21/16 at 13:00 Tobramycin/Sodium Chloride (Tobramycin/NS) 52 ml @ 104 mls/hr Q24H IVPB Last administered on 12/21/16 17:16; Admin Dose 104 MLS/HR; Start 12/21/16 at 18:00 Miscellaneous Information (*Rx Drug Level Order Reminder*) TOBRAMYCIN TROUGH AT 1700 ONCE ONCE XX ; Start 12/23/16 at 17:00; Stop 12/23/16 at 17:01 NICOLAS VASQUEZ Dec 22, 2016 15:50
[2016-12-22] MEDS: TOBRAMYCIN 80 MG in SOD CHLORIDE 0.9% 50 ML IVPB SCH (17:08)
[2016-12-22] MEDS: ATORVASTATIN 40 MG TAB GTB SCH (21:13)
--- NOTE | 2016-12-22 22:56 | CONS ---
Date/Time of Note Date/Time of Note DATE: 12/22/16 TIME: 22:49 Assessment/Plan Assessment/Plan Chief Complaint/Hosp Course Anemia- n- cytic with increased rdw no evidence of B12 deficiency gastrointestinal bleed - CONTROLLED + COMPONENT ACD Will continue to monitor. EGD and colonoscopy.- moderate to large hemorrhoids, polyp. Severe gastritis. IRON STUDIES ON 12.20.16 WERE AFFECTED BY 2 U PRBC TRANSFUSION OF 12.19.16 WILL REPEAT IN COUPLE WE Acute lower gastrointestinal bleed. The patient is status post blood transfusion. Hemoglobin levels remain stable. POST EGD and colonoscopy Atrial fibrillation, currently rate controlled. Continue the current medical management and follow up with cardiology. Anticoagulation- CLEARED BY GI Sepsis secondary to a recent urinary tract infection and Clostridium difficile colitis. The patient's repeat stool for C. diff was negative. The patient remains on oral vancomycin. Follow up with infectious disease. Ventilatory-dependent respiratory failure. Dysphagia. Status post PEG. Continue tube feeding. Acute systolic and diastolic heart failure. The patient is currently decompensated. Continue medical management. Continue diuretic therapy. Acute on chronic encephalopathy. Etiology is toxic metabolic. The patient's mental status appears to be improving. Continue to monitor. History of cerebrovascular accident. Continue medical management. Hypertension. Continue current blood pressure regimen. Hypothyroidism. The patient's CCH remains elevated. Will increase Synthroid to 150 mcg daily. Renal insufficiency. Improved. Continue supportive care. Mild hyperkalemia. Resolved. Shingles. The patient is status post Valtrex. Gastrointestinal and deep venous thrombosis prophylaxis. Continue proton pump inhibitor and sequential leg squeezers. Problems: Consultation Date/Type/Reason Admit Date/Time Dec 18, 2016 at 16:05 Initial Consult Date 12/19/16 Type of Consultation: [facility] Referring Provider: NIRMALA TAVAREZ DO 24 HR Interval Summary Free Text/Dictation the patient had an EGD, colonoscopy performed which showed moderate to large hemorrhoids, polyp. Severe gastritis. No other acute events noted. No hemoptysis, hematemesis or hematochezia. COUNT STABLE Exam/Review of Systems Vital Signs Vitals Vital Signs Date Time Temp Pulse Resp B/P Pulse Ox O2 Delivery O2 Flow Rate FiO2 12/22/16 21:19 66 18 98 40 12/22/16 19:55 98.4 134/63 12/21/16 13:12 Trach Collar Intake and Output 12/21/16 12/21/16 12/22/16 15:00 23:00 07:00 Intake Total 100 ml Balance 100 ml Exam OBJECTIVE: HEENT: Head is normocephalic. NECK: Supple. HEART: Regular rate. LUNGS: Show diminished breath sounds at base. ABDOMEN: Soft, nontender to palpation. No rebound or guarding. EXTREMITIES: Negative for clubbing, cyanosis, no edema. DERMATOLOGIC: No rashes. MUSCULOSKELETAL: No joint effusions. NEUROLOGIC: No change in exam. Results Result Diagram: 12/22/16 0550 12/22/16 0550 Results 24 hrs Laboratory Tests Test 12/22/16 05:50 White Blood Count 8.1 Red Blood Count 3.30 L Hemoglobin 9.9 L Hematocrit 30.4 L Mean Corpuscular Volume 92.1 Mean Corpuscular Hemoglobin 30.0 Mean Corpuscular Hemoglobin Concent 32.6 Red Cell Distribution Width 21.6 H Platelet Count 231 Mean Platelet Volume 10.0 Neutrophils % 74.7 Lymphocytes % 14.5 L Monocytes % 6.2 Eosinophils % 3.6 Basophils % 0.5 Nucleated Red Blood Cells % 0.9 H Neutrophils # 6.0 Lymphocytes # 1.2 Monocytes # 0.5 Eosinophils # 0.3 Basophils # 0.0 Nucleated Red Blood Cells # 0.1 H Sodium Level 138 Potassium Level 3.8 Chloride Level 96 L Carbon Dioxide Level 29 Anion Gap 17 H Blood Urea Nitrogen 24 H Creatinine 0.63 Glucose Level 144 # Calcium Level 8.9 Phosphorus Level 2.5 Magnesium Level 2.0 Medications Medications Current Medications Acetaminophen (Tylenol Liquid) 650 mg Q6H PRN GTB MILD DISCOMFORT Last administered on 12/19/16 16:20; Admin Dose 650 MG; Start 12/18/16 at 23:00 Atorvastatin Calcium (Lipitor) 40 mg QHS GTB Last administered on 12/22/16 21: 13; Admin Dose 40 MG; Start 12/19/16 at 21:00 Bisacodyl (Dulcolax Supp) 10 mg Q2D [place] Last administered on 12/20/16 22:06; Admin Dose 10 MG; Start 12/18/16 at 23:00 Chlorhexidine Gluconate (Peridex) 15 ml Q12H MM Last administered on 12/22/16 13:10; Admin Dose 15 ML; Start 12/18/16 at 23:00 Digoxin (Digoxin) 0.125 mg Q48H GTB Last administered on 12/21/16 13:21; Admin Dose 0.125 MG; Start 12/19/16 at 13:00 Labetalol HCl (Normodyne) 50 mg Q6H GTB Last administered on 12/22/16 16:58; Admin Dose 50 MG; Start 12/18/16 at 23:00 Lansoprazole (Prevacid) 30 mg DAILY GTB Last administered on 12/22/16 08:56; Admin Dose 30 MG; Start 12/19/16 at 09:00 Losartan Potassium (Cozaar) 100 mg DAILY GTB Last administered on 12/22/16 08: 56; Admin Dose 100 MG; Start 12/19/16 at 09:00 Magnesium Hydroxide (Milk Of Mag) 30 ml DAILY GTB Last administered on 08:56; Admin Dose 30 ML; Start 12/19/16 at 09:00 Metoprolol Tartrate (Lopressor) 50 mg BID GTB Last administered on 12/22/16 21 :12; Admin Dose 50 MG; Start 12/19/16 at 09:00 Ondansetron HCl (Zofran Tab) 4 mg Q6H PRN GTB NAUSEA AND/OR VOMITING; Start at 23:00 Sodium Biphosphate/ Sodium Phosphate (Fleet Enema Pediatric) 66.6 ml Q3D PRN [place] CONSTIPATION; Start 12/18/16 at 23:00 Spironolactone (Aldactone) 25 mg BID GTB Last administered on 12/22/16 21:11; Admin Dose 25 MG; Start 12/19/16 at 09:00 Vancomycin HCl (Vancomycin Oral Syringe) 125 mg Q6 PO Last administered on 12/22 17:58; Admin Dose 125 MG; Start 12/19/16 at 00:00 Diltiazem HCl (Cardizem Sr) 60 mg TID PO Last administered on 12/22/16 21:11; Admin Dose 60 MG; Start 12/21/16 at 13:00 Tobramycin TOBRAMYCIN PER PHARMACY NOTE XX ; Start 12/21/16 at 13:00 Tobramycin/Sodium Chloride (Tobramycin/NS) 52 ml @ 104 mls/hr Q24H IVPB Last administered on 3/25/17at 17:08; Admin Dose 104 MLS/HR; Start 12/21/16 at 18:00 Miscellaneous Information (*Rx Drug Level Order Reminder*) TOBRAMYCIN TROUGH AT 1700 ONCE ONCE XX ; Start 12/23/16 at 17:00; Stop 12/23/16 at 17:01 DANELLE LEHMAN MD Dec 22, 2016 22:56
[2016-12-23] VITALS (24 sets, daily range): BP systolic 121–188; BP diastolic 57–78; PULSE 50–60; RESP 13–20
[2016-12-23] MEDS: LABETALOL 100 MG TAB GTB SCH ×5 (00:04→23:14)
[2016-12-23] MEDS: BISACODYL 10 MG SUPP PR SCH (00:05)
[2016-12-23] MEDS: VANCOMYCIN HCL 250 MG/5ML POSYG PO SCH ×4 (00:06→17:36)
[2016-12-23] MEDS: CALCIUM CARBONATE 1.25 GM TAB GTB SCH ×2 (06:47→09:48)
[2016-12-23] MEDS: FUROSEMIDE 40 MG TAB GTB SCH ×2 (06:48→17:36)
[2016-12-23] MEDS: LEVOTHYROXINE 150 MCG TAB GTB SCH (06:53)
[2016-12-23 07:10] LABS: ADD SCAN DIFF NO
[2016-12-23 07:15] LABS: ABNORMAL IP MESSAGE 1; BASOPHIL # 0.1 10^3/ul (0.0-0.1); BASOPHILS % 0.6 % (0.0-2.0); EOSINOPHILS # 0.3 10^3/ul (0.0-0.5); EOSINOPHILS % 3.8 % (0.0-7.0); HEMATOCRIT 29.2 % (37.0-47.0); HEMOGLOBIN 9.1 g/dl (12.0-16.0); LYMPHOCYTES # 1.3 10^3/ul (0.8-2.9); LYMPHOCYTES % 15.4 % (15.0-51.0); MEAN CORPUSCULAR HEMOGLOBIN 29.1 pg (29.0-33.0); MEAN CORPUSCULAR HGB CONC 31.2 g/dl (32.0-37.0); MEAN CORPUSCULAR VOLUME 93.3 fl (82.0-101.0); MEAN PLATELET VOLUME 10.4 fl (7.4-10.4); MONOCYTE # 0.6 10^3/ul (0.3-0.9); MONOCYTES % 6.8 % (0.0-11.0); NEUTROPHIL # 6.1 10^3/ul (1.6-7.5); NEUTROPHILS % 72.9 % (39.0-77.0); NUCLEATED RED BLOOD CELLS% 0.4 /100WBC (0.0-0.0); PLATELET COUNT 220 10^3/UL (140-415); RED BLOOD COUNT 3.13 10^6/ul (4.20-5.40); RED CELL DISTRIBUTION WIDTH 22.1 % (11.5-14.5); WHITE BLOOD COUNT 8.4 10^3/ul (4.8-10.8)
[2016-12-23 07:22] LABS: POTASSIUM 3.9 mmol/L (3.5-5.1)
[2016-12-23 07:24] LABS: CREATININE 0.68 mg/dl (0.44-1.00)
[2016-12-23 07:25] LABS: CALCIUM 8.5 mg/dl (8.4-10.2)
--- NOTE | 2016-12-23 09:26 | PN ---
DATE: 12/23/2016 SUBJECTIVE: The patient is stable. No acute events overnight. No fevers, chills, nausea, or vomit ing. No evidence of bleeding. OBJECTIVE: VITAL SIGNS: Blood pressure 139/68, respiration 19, pulse 54, temperature 98.6. HEENT: Head is normocephalic. NECK: Shows trach. HEART: Regular rate. LUNGS: Show diminished breath sounds at the base. ABDOMEN: Soft, nontender to palpation without rebound or guarding. EXTREMITIES: Negative for clubbing, cyanosis, no edema. DERMATOLOGIC: No rashes. MUSCULOSKELETAL: No joint effusions. NEUROLOGIC: No change in exam. MEDICATIONS: The patient's medications have been reviewed. LABORATORY DATA: Shows sodium 134, potassium 3.9, chloride 96, BUN 26, creatinine 0.68. White coun t 8.4, hemoglobin 9.1, hematocrit 29.2, and platelet count 220. ASSESSMENT AND PLAN: 1. Acute lower gastrointestinal bleed, etiology is likely hemorrhoidal in nature. The patient is s tatus post blood transfusion, status post EGD and colonoscopy. At this point, no further bleeding. Continue to monitor. 2. Atrial fibrillation, rate controlled. Continue medical management. We will discuss with GI and Cardiology about resuming anticoagulation. 3. Sepsis secondary to urinary tract infection and Clostridium difficile colitis. Continue current antibiotic regimen. 4. Ventilator dependent respiratory failure. Vent settings have been reviewed. ABGs have been rev iewed. Continue to monitor. 5. Dysphagia status post PEG. Continue tube feeding. 6. Acute systolic/diastolic heart failure. The patient is currently decompensated. [facility]. 7. Acute on chronic encephalopathy. Etiology is toxic metabolic. Mental status back to baseline. Continue current treatment plan. 8. Anemia secondary to gastrointestinal bleed and chronic disease. Continue to monitor hemoglobin and hematocrit levels. 9. History of cerebrovascular accident. Continue current treatment plan. 10. Hypertension. Continue current blood pressure regimen. 11. Hypothyroidism. Continue Synthroid. 12. Renal insufficiency, improved. 13. Mild hyponatremia. We will decrease rate of free water flushes. 14. Singles status post Valtrex. 15. GI and DVT prophylaxis. Continue proton pump inhibitor and sequential leg squeezers. Dictated By: NIRMALA RODRIGUEZ/TONIO Conf#: [id number] DID#: [id number]
[2016-12-23] MEDS: MAGNESIUM HYDROXIDE 30ML CUP GTB SCH (09:47)
[2016-12-23] MEDS: SPIRONOLACTONE 25 MG TAB GTB SCH ×2 (09:48→21:18)
[2016-12-23] MEDS: METOPROLOL 50 MG TAB GTB SCH ×2 (09:48→21:18)
[2016-12-23] MEDS: LANSOPRAZOLE 30 MG CAP GTB SCH (09:49)
[2016-12-23] MEDS: LOSARTAN 50 MG TAB GTB SCH (09:49)
[2016-12-23] MEDS: APIXABAN 5 MG TABLET PO SCH ×2 (09:49→21:17)
[2016-12-23] MEDS: DILTIAZEM (SR) 60 MG CAP PO SCH ×3 (09:49→21:19)
--- NOTE | 2016-12-23 11:09 | CONS ---
Date/Time of Note Date/Time of Note DATE: 12/23/16 TIME: 11:07 Assessment/Plan Assessment/Plan Additional Assessment/Plan Ventilator settings; AC of 12, tidal volume 500, PEEP of 5, 30% FiO2. Assessment recommendations; 1. Patient admitted for anemia status post blood transfusion with stable hematocrit. 2. History of chronic respiratory failure patient is ventilator dependent. 3. History of anoxic brain injury. Continue current treatment. Patient will transfer back to the senior care. Consultation Date/Type/Reason Admit Date/Time Dec 18, 2016 at 16:05 Initial Consult Date 12/19/16 Type of Consultation: Pulmonary/critical care Referring Provider: NIRMALA TAVAREZ DO 24 HR Interval Summary Free Text/Dictation Patient condition remains stable. Remains awake but does not follow any commands. Has remained hemodynamically stable. No overt bleed noted. General exam; elderly lady, on ventilator via tracheostomy currently in no distress. Exam/Review of Systems Vital Signs Vitals Vital Signs Date Time Temp Pulse Resp B/P Pulse Ox O2 Delivery O2 Flow Rate FiO2 12/23/16 09:00 61 13 96 40 12/23/16 08:19 98.6 139/68 12/21/16 13:12 Trach Collar Intake and Output 12/22/16 12/22/16 12/23/16 15:00 23:00 07:00 Intake Total 850 ml 550 ml 550 ml Balance 850 ml 550 ml 550 ml Exam HEENT examination; supple neck, no JVD. No lymphadenopathy. Midline trachea. No thyromegaly. Tracheostomy in place with clean insertion site. Chest examination; diminished but clear vessel bilaterally. S1-S2 audible, no murmurs. Regular rhythm. Abdomen examination; soft, G-tube in place. No organomegaly. Bowel sounds audible. Extremity examination; no peripheral edema. ROBOTICS SPECIALIST examination; patient is awake but does not follow any commands. Results Result Diagram: 12/23/16 0600 12/23/16 0600 Results 24 hrs Laboratory Tests Test 12/23/16 06:00 White Blood Count 8.4 Red Blood Count 3.13 L Hemoglobin 9.1 L Hematocrit 29.2 L Mean Corpuscular Volume 93.3 Mean Corpuscular Hemoglobin 29.1 Mean Corpuscular Hemoglobin Concent 31.2 L Red Cell Distribution Width 22.1 H Platelet Count 220 Mean Platelet Volume 10.4 Neutrophils % 72.9 Lymphocytes % 15.4 Monocytes % 6.8 Eosinophils % 3.8 Basophils % 0.6 Nucleated Red Blood Cells % 0.4 H Neutrophils # 6.1 Lymphocytes # 1.3 Monocytes # 0.6 Eosinophils # 0.3 Basophils # 0.1 Nucleated Red Blood Cells # 0.0 Sodium Level 134 L Potassium Level 3.9 Chloride Level 96 L Carbon Dioxide Level 31 Anion Gap 11 Blood Urea Nitrogen 26 H Creatinine 0.68 Glucose Level 141 Calcium Level 8.5 Medications Medications Current Medications Acetaminophen (Tylenol Liquid) 650 mg Q6H PRN GTB MILD DISCOMFORT Last administered on 12/19/16 16:20; Admin Dose 650 MG; Start 12/18/16 at 23:00 Atorvastatin Calcium (Lipitor) 40 mg QHS GTB Last administered on 12/22/16 21: 13; Admin Dose 40 MG; Start 12/19/16 at 21:00 Bisacodyl (Dulcolax Supp) 10 mg Q2D [place] Last administered on 12/23/16 00:05; Admin Dose 10 MG; Start 12/18/16 at 23:00 Chlorhexidine Gluconate (Peridex) 15 ml Q12H MM Last administered on 12/23/16 00:00; Admin Dose 15 ML; Start 12/18/16 at 23:00 Digoxin (Digoxin) 0.125 mg Q48H GTB Last administered on 12/21/16 13:21; Admin Dose 0.125 MG; Start 12/19/16 at 13:00 Labetalol HCl (Normodyne) 50 mg Q6H GTB Last administered on 12/23/16 06:47; Admin Dose 50 MG; Start 12/18/16 at 23:00 Lansoprazole (Prevacid) 30 mg DAILY GTB Last administered on 12/23/16 09:49; Admin Dose 30 MG; Start 12/19/16 at 09:00 Losartan Potassium (Cozaar) 100 mg DAILY GTB Last administered on 12/23/16 09: 49; Admin Dose 100 MG; Start 12/19/16 at 09:00 Magnesium Hydroxide (Milk Of Mag) 30 ml DAILY GTB Last administered on 09:47; Admin Dose 30 ML; Start 12/19/16 at 09:00 Metoprolol Tartrate (Lopressor) 50 mg BID GTB Last administered on 12/23/16 09 :48; Admin Dose 50 MG; Start 12/19/16 at 09:00 Ondansetron HCl (Zofran Tab) 4 mg Q6H PRN GTB NAUSEA AND/OR VOMITING; Start at 23:00 Sodium Biphosphate/ Sodium Phosphate (Fleet Enema Pediatric) 66.6 ml Q3D PRN [place] CONSTIPATION; Start 12/18/16 at 23:00 Spironolactone (Aldactone) 25 mg BID GTB Last administered on 12/23/16 09:48; Admin Dose 25 MG; Start 12/19/16 at 09:00 Vancomycin HCl (Vancomycin Oral Syringe) 125 mg Q6 PO Last administered on 12/23 06:45; Admin Dose 125 MG; Start 12/19/16 at 00:00 Diltiazem HCl (Cardizem Sr) 60 mg TID PO Last administered on 12/23/16 09:49; Admin Dose 60 MG; Start 12/21/16 at 13:00 Tobramycin TOBRAMYCIN PER PHARMACY NOTE XX ; Start 12/21/16 at 13:00 Tobramycin/Sodium Chloride (Tobramycin/NS) 52 ml @ 104 mls/hr Q24H IVPB Last administered on 12/22/16 17:08; Admin Dose 104 MLS/HR; Start 12/21/16 at 18:00 Miscellaneous Information (*Rx Drug Level Order Reminder*) TOBRAMYCIN TROUGH AT 1700 ONCE ONCE XX ; Start 12/23/16 at 17:00; Stop 12/23/16 at 17:01 Apixaban (Eliquis) 5 mg BID PO Last administered on 12/23/16 09:49; Admin Dose 5 MG; Start 12/23/16 at 09:00 NICOLAS VASQUEZ Dec 23, 2016 11:09
[2016-12-23] MEDS: CHLORHEXIDINE GLUCONATE 15 ML UD CUP MM SCH ×3 (11:44→23:12)
--- NOTE | 2016-12-23 11:45 | CONS ---
Date/Time of Note Date/Time of Note DATE: 12/23/16 TIME: 11:43 Assessment/Plan Assessment/Plan Additional Assessment/Plan Assessment/Plan Additional Assessment/Plan IMPRESSION: 1. Gastritis and Hemorrhoids 2. Clostridium difficile colitis. The patient is on vancomycin. 3. Shingles. 4. Ventilator-dependent respiratory failure. 5. Chronic atrial fibrillation. 6. Cerebrovascular accident. 7. Encephalopathy. 8. Pneumonia. 9. Hypertension. 10. Hypothyroidism. 11. Anemia Plan continue present care ok to start on blood thinner and monitor for bleeding We will monitor H&H Consultation Date/Type/Reason Admit Date/Time Dec 18, 2016 at 16:05 Initial Consult Date 12/19/16 Type of Consultation: Pulmonary/critical care Referring Provider: NIRMALA TAVAREZ DO 24 HR Interval Summary Free Text/Dictation As per the family member no abdominal pain, no nausea no vomiting, no GI bleeding. Patient is comfortable. Subjective hx not possible: pt non-verbal Exam/Review of Systems Vital Signs Vitals Vital Signs Date Time Temp Pulse Resp B/P Pulse Ox O2 Delivery O2 Flow Rate FiO2 12/23/16 11:20 75 13 96 40 12/23/16 08:19 98.6 139/68 12/21/16 13:12 Trach Collar Intake and Output 12/22/16 12/22/16 12/23/16 15:00 23:00 07:00 Intake Total 850 ml 550 ml 550 ml Balance 850 ml 550 ml 550 ml Exam Constitutional: alert, oriented, well developed Psych: nl mood/affect, no complaints Head: atraumatic, normocephalic Eyes: EOMI, PERRL, nl conjunctiva, nl lids, nl sclera ENMT: nl external ears & nose, nl lips & teeth, nl nasal mucosa & septum Neck: non-tender, supple Respiratory: clear to auscultation, normal air movement Cardiovascular: nl pulses, regular rate and rhythm Gastrointestinal: nl liver, spleen, non-tender, soft Musculoskeletal: nl extremities to inspection, nl gait and stance Extremities: normal pulses Neurological: MAGNETIC PROSPECTOR II-XII intact, nl mental status, nl speech, nl strength Skin: nl turgor, No rash or lesions Lymph: nl lymph nodes Results Result Diagram: 12/23/16 0600 12/23/16 0600 Results 24 hrs Laboratory Tests Test 12/23/16 06:00 White Blood Count 8.4 Red Blood Count 3.13 L Hemoglobin 9.1 L Hematocrit 29.2 L Mean Corpuscular Volume 93.3 Mean Corpuscular Hemoglobin 29.1 Mean Corpuscular Hemoglobin Concent 31.2 L Red Cell Distribution Width 22.1 H Platelet Count 220 Mean Platelet Volume 10.4 Neutrophils % 72.9 Lymphocytes % 15.4 Monocytes % 6.8 Eosinophils % 3.8 Basophils % 0.6 Nucleated Red Blood Cells % 0.4 H Neutrophils # 6.1 Lymphocytes # 1.3 Monocytes # 0.6 Eosinophils # 0.3 Basophils # 0.1 Nucleated Red Blood Cells # 0.0 Sodium Level 134 L Potassium Level 3.9 Chloride Level 96 L Carbon Dioxide Level 31 Anion Gap 11 Blood Urea Nitrogen 26 H Creatinine 0.68 Glucose Level 141 Calcium Level 8.5 Medications Medications Current Medications Acetaminophen (Tylenol Liquid) 650 mg Q6H PRN GTB MILD DISCOMFORT Last administered on 12/19/16 16:20; Admin Dose 650 MG; Start 12/18/16 at 23:00 Atorvastatin Calcium (Lipitor) 40 mg QHS GTB Last administered on 12/22/16 21: 13; Admin Dose 40 MG; Start 12/19/16 at 21:00 Bisacodyl (Dulcolax Supp) 10 mg Q2D [place] Last administered on 12/23/16 00:05; Admin Dose 10 MG; Start 12/18/16 at 23:00 Chlorhexidine Gluconate (Peridex) 15 ml Q12H MM Last administered on 12/23/16 00:00; Admin Dose 15 ML; Start 12/18/16 at 23:00 Digoxin (Digoxin) 0.125 mg Q48H GTB Last administered on 12/21/16 13:21; Admin Dose 0.125 MG; Start 12/19/16 at 13:00 Labetalol HCl (Normodyne) 50 mg Q6H GTB Last administered on 12/23/16 06:47; Admin Dose 50 MG; Start 12/18/16 at 23:00 Lansoprazole (Prevacid) 30 mg DAILY GTB Last administered on 12/23/16 09:49; Admin Dose 30 MG; Start 12/19/16 at 09:00 Losartan Potassium (Cozaar) 100 mg DAILY GTB Last administered on 12/23/16 09: 49; Admin Dose 100 MG; Start 12/19/16 at 09:00 Magnesium Hydroxide (Milk Of Mag) 30 ml DAILY GTB Last administered on 09:47; Admin Dose 30 ML; Start 12/19/16 at 09:00 Metoprolol Tartrate (Lopressor) 50 mg BID GTB Last administered on 12/23/16 09 :48; Admin Dose 50 MG; Start 12/19/16 at 09:00 Ondansetron HCl (Zofran Tab) 4 mg Q6H PRN GTB NAUSEA AND/OR VOMITING; Start at 23:00 Sodium Biphosphate/ Sodium Phosphate (Fleet Enema Pediatric) 66.6 ml Q3D PRN [place] CONSTIPATION; Start 12/18/16 at 23:00 Spironolactone (Aldactone) 25 mg BID GTB Last administered on 12/23/16 09:48; Admin Dose 25 MG; Start 12/19/16 at 09:00 Vancomycin HCl (Vancomycin Oral Syringe) 125 mg Q6 PO Last administered on 12/23 06:45; Admin Dose 125 MG; Start 12/19/16 at 00:00 Diltiazem HCl (Cardizem Sr) 60 mg TID PO Last administered on 12/23/16 09:49; Admin Dose 60 MG; Start 12/21/16 at 13:00 Tobramycin TOBRAMYCIN PER PHARMACY NOTE XX ; Start 12/21/16 at 13:00 Tobramycin/Sodium Chloride (Tobramycin/NS) 52 ml @ 104 mls/hr Q24H IVPB Last administered on 12/22/16 17:08; Admin Dose 104 MLS/HR; Start 12/21/16 at 18:00 Miscellaneous Information (*Rx Drug Level Order Reminder*) TOBRAMYCIN TROUGH AT 1700 ONCE ONCE XX ; Start 12/23/16 at 17:00; Stop 12/23/16 at 17:01 Apixaban (Eliquis) 5 mg BID PO Last administered on 12/23/16 09:49; Admin Dose 5 MG; Start 12/23/16 at 09:00 MARY PAYNE MD Dec 23, 2016 11:45
[2016-12-23] MEDS: ACETAMINOPHEN 650MG/20.3ML CUP GTB PRN (11:49)
[2016-12-23] MEDS: DIGOXIN 0.125 MG TAB GTB SCH (13:00)
[2016-12-23] MEDS: TOBRAMYCIN 80 MG in SOD CHLORIDE 0.9% 50 ML IVPB SCH (18:19)
--- NOTE | 2016-12-23 19:03 | CONS ---
Date/Time of Note Date/Time of Note DATE: 12/23/16 TIME: 19:00 Assessment/Plan Assessment/Plan Chief Complaint/Hosp Course ID PROGRESS NOTE TOTAL ABX DAY # => Vanco PO + Tobra #3 s/p Merrem 12/23/16 0600 12/23/16 0600 24H INTERVAL SUMMARY * 86 yo F -- lethargic, obese, stable * Afib w/bradycardia == Dig, Cardizem, Beta-blockers on HOLD * s/p EGD and colonoscopy.- moderate to large hemorrhoids, polyp. Severe gastritis. PHYSICAL EXAMINATION: GENERAL: VSS, NAD HEENT: Unremarkable NECK: Trach midline CHEST: Equal chest rise bilaterally, without dyspnea on observation HEART: Pulse RRR ABDOMEN: Soft/peg EXTREMITIES: Warm SKIN: See hard chart skin assessment ID ASSESSMENT: 86 yo F w/PMHx 1. Acute anemia with gastrointestinal bleeding. Status post blood transfusion. * s/p EGD and colonoscopy.- moderate to large hemorrhoids, polyp. Severe gastritis. 2. Pseudomonas aeruginosa urinary tract infection vs colonization w/low colony C.Albicans funguria * Blood Cx (-) 3. Clostridium difficile colitis, in treatment. 4. Respiratory failure, chronic. 5. Congestive heart failure. 6. Atrial fibrillation * Afib w/bradycardia 12/23/16 == Dig, Cardizem, Beta-blockers on HOLD INVASIVES: PIV ABX ALLERGY: KNDA CURRENT ABX: => Vanco PO + Tobra #3 ID RECOMMENDATIONS: 1. Continue current ABX . Problems: Consultation Date/Type/Reason Admit Date/Time Dec 18, 2016 at 16:05 Initial Consult Date 12/19/16 Type of Consultation: ID Referring Provider: NIRMALA TAVAREZ DO Exam/Review of Systems Vital Signs Vitals Vital Signs Date Time Temp Pulse Resp B/P Pulse Ox O2 Delivery O2 Flow Rate FiO2 12/23/16 17:05 68 17 96 40 12/23/16 15:14 98.6 141/63 12/21/16 13:12 Trach Collar Intake and Output 12/22/16 12/22/16 12/23/16 15:00 23:00 07:00 Intake Total 850 ml 550 ml 550 ml Balance 850 ml 550 ml 550 ml Results Result Diagram: 12/23/16 0600 12/23/16 0600 Results 24 hrs Laboratory Tests Test 12/23/16 06:00 12/23/16 17:46 White Blood Count 8.4 Red Blood Count 3.13 L Hemoglobin 9.1 L Hematocrit 29.2 L Mean Corpuscular Volume 93.3 Mean Corpuscular Hemoglobin 29.1 Mean Corpuscular Hemoglobin Concent 31.2 L Red Cell Distribution Width 22.1 H Platelet Count 220 Mean Platelet Volume 10.4 Neutrophils % 72.9 Lymphocytes % 15.4 Monocytes % 6.8 Eosinophils % 3.8 Basophils % 0.6 Nucleated Red Blood Cells % 0.4 H Neutrophils # 6.1 Lymphocytes # 1.3 Monocytes # 0.6 Eosinophils # 0.3 Basophils # 0.1 Nucleated Red Blood Cells # 0.0 Sodium Level 134 L Potassium Level 3.9 Chloride Level 96 L Carbon Dioxide Level 31 Anion Gap 11 Blood Urea Nitrogen 26 H Creatinine 0.68 Glucose Level 141 Calcium Level 8.5 Tobramycin Level Trough 1.0 Medications Medications Current Medications Acetaminophen (Tylenol Liquid) 650 mg Q6H PRN GTB MILD DISCOMFORT Last administered on 12/23/16 11:49; Admin Dose 650 MG; Start 12/18/16 at 23:00 Atorvastatin Calcium (Lipitor) 40 mg QHS GTB Last administered on 12/22/16 21: 13; Admin Dose 40 MG; Start 12/19/16 at 21:00 Bisacodyl (Dulcolax Supp) 10 mg Q2D [place] Last administered on 12/23/16 00:05; Admin Dose 10 MG; Start 12/18/16 at 23:00 Chlorhexidine Gluconate (Peridex) 15 ml Q12H MM Last administered on 12/23/16 11:44; Admin Dose 15 ML; Start 12/18/16 at 23:00 Digoxin (Digoxin) 0.125 mg Q48H GTB Last administered on 12/21/16 13:21; Admin Dose 0.125 MG; Start 12/19/16 at 13:00 Labetalol HCl (Normodyne) 50 mg Q6H GTB Last administered on 12/23/16 06:47; Admin Dose 50 MG; Start 12/18/16 at 23:00 Lansoprazole (Prevacid) 30 mg DAILY GTB Last administered on 12/23/16 09:49; Admin Dose 30 MG; Start 12/19/16 at 09:00 Losartan Potassium (Cozaar) 100 mg DAILY GTB Last administered on 12/23/16 09: 49; Admin Dose 100 MG; Start 12/19/16 at 09:00 Magnesium Hydroxide (Milk Of Mag) 30 ml DAILY GTB Last administered on 09:47; Admin Dose 30 ML; Start 12/19/16 at 09:00 Metoprolol Tartrate (Lopressor) 50 mg BID GTB Last administered on 12/23/16 09 :48; Admin Dose 50 MG; Start 12/19/16 at 09:00 Ondansetron HCl (Zofran Tab) 4 mg Q6H PRN GTB NAUSEA AND/OR VOMITING; Start at 23:00 Sodium Biphosphate/ Sodium Phosphate (Fleet Enema Pediatric) 66.6 ml Q3D PRN [place] CONSTIPATION; Start 12/18/16 at 23:00 Spironolactone (Aldactone) 25 mg BID GTB Last administered on 12/23/16 09:48; Admin Dose 25 MG; Start 12/19/16 at 09:00 Vancomycin HCl (Vancomycin Oral Syringe) 125 mg Q6 PO Last administered on 12/23 17:36; Admin Dose 125 MG; Start 12/19/16 at 00:00 Diltiazem HCl (Cardizem Sr) 60 mg TID PO Last administered on 12/23/16 09:49; Admin Dose 60 MG; Start 12/21/16 at 13:00 Tobramycin TOBRAMYCIN PER PHARMACY NOTE XX ; Start 12/21/16 at 13:00 Tobramycin/Sodium Chloride (Tobramycin/NS) 52 ml @ 104 mls/hr Q24H IVPB Last administered on 12/23/16 18:19; Admin Dose 104 MLS/HR; Start 12/21/16 at 18:00 Apixaban (Eliquis) 5 mg BID PO Last administered on 12/23/16 09:49; Admin Dose 5 MG; Start 12/23/16 at 09:00 SABINO FONTANEZ NP Dec 23, 2016 19:02
[2016-12-23 21:10] LABS: ADD UMIC NO; URINE BILIRUBIN (Dip) NEGATIVE (NEGATIVE); URINE BLOOD (Dip) NEGATIVE (NEGATIVE); URINE COLOR LT. YELLOW (YELLOW); URINE GLUCOSE (Dip) NEGATIVE (NEGATIVE); URINE KETONES (Dip) NEGATIVE (NEGATIVE); URINE LEUKOCYTE ESTERASE (Dip) NEGATIVE (NEGATIVE); URINE NITRITE (Dip) NEGATIVE (NEGATIVE); URINE TOTAL PROTEIN (Dip) NEGATIVE (NEGATIVE); URINE UROBILINOGEN (Dip) 0.2 E.U./dL (0.1-1.0)
[2016-12-23] MEDS: ATORVASTATIN 40 MG TAB GTB SCH (21:18)
--- NOTE | 2016-12-23 22:24 | CONS ---
Date/Time of Note Date/Time of Note DATE: 12/23/16 TIME: 22:23 Assessment/Plan Assessment/Plan Chief Complaint/Hosp Course Anemia- n- cytic with increased rdw no evidence of B12 deficiency Will continue to monitor. POST EGD and colonoscopy. POST Acute lower gastrointestinal bleed. The patient is status post blood transfusion. Hemoglobin levels remain stable. POST EGD and colonoscopy Atrial fibrillation, currently rate controlled. Continue the current medical management and follow up with cardiology. Anticoagulation is being held at this time. Sepsis secondary to a recent urinary tract infection and Clostridium difficile colitis. The patient's repeat stool for C. diff was negative. The patient remains on oral vancomycin. Follow up with infectious disease. Ventilatory-dependent respiratory failure. Dysphagia. Status post PEG. Continue tube feeding. Acute systolic and diastolic heart failure. The patient is currently decompensated. Continue medical management. Continue diuretic therapy. Acute on chronic encephalopathy. Etiology is toxic metabolic. The patient's mental status appears to be improving. Continue to monitor. History of cerebrovascular accident. Continue medical management. Hypertension. Continue current blood pressure regimen. Hypothyroidism. The patient's CCH remains elevated. Will increase Synthroid to 150 mcg daily. Renal insufficiency. Improved. Continue supportive care. Mild hyperkalemia. Resolved. Shingles. The patient is status post Valtrex. Gastrointestinal and deep venous thrombosis prophylaxis. Continue proton pump inhibitor and sequential leg squeezers. Problems: Consultation Date/Type/Reason Admit Date/Time Dec 18, 2016 at 16:05 Initial Consult Date 12/19/16 Type of Consultation: [facility] Referring Provider: NIRMALA TAVAREZ DO 24 HR Interval Summary Free Text/Dictation the patient had an EGD, colonoscopy performed which showed moderate to large hemorrhoids, polyp. Severe gastritis. No other acute events noted. No hemoptysis, hematemesis or hematochezia. COUNT STABLE NO BLEEDING Exam/Review of Systems Vital Signs Vitals Vital Signs Date Time Temp Pulse Resp B/P Pulse Ox O2 Delivery O2 Flow Rate FiO2 12/23/16 20:05 60 12/23/16 20:00 98.2 14 188/78 98 12/23/16 17:05 40 12/21/16 13:12 Trach Collar Intake and Output 12/22/16 12/22/16 12/23/16 15:00 23:00 07:00 Intake Total 850 ml 550 ml 550 ml Balance 850 ml 550 ml 550 ml Exam HEENT: Head is normocephalic. NECK: Supple. HEART: Regular rate. LUNGS: Show diminished breath sounds at base. ABDOMEN: Soft, nontender to palpation. No rebound or guarding. EXTREMITIES: Negative for clubbing, cyanosis, no edema. DERMATOLOGIC: No rashes. MUSCULOSKELETAL: No joint effusions. NEUROLOGIC: No change in exam. Results Result Diagram: 12/23/16 0600 12/23/16 0600 Results 24 hrs Laboratory Tests Test 12/23/16 06:00 12/23/16 17:46 12/23/16 18:00 White Blood Count 8.4 Red Blood Count 3.13 L Hemoglobin 9.1 L Hematocrit 29.2 L Mean Corpuscular Volume 93.3 Mean Corpuscular Hemoglobin 29.1 Mean Corpuscular Hemoglobin Concent 31.2 L Red Cell Distribution Width 22.1 H Platelet Count 220 Mean Platelet Volume 10.4 Neutrophils % 72.9 Lymphocytes % 15.4 Monocytes % 6.8 Eosinophils % 3.8 Basophils % 0.6 Nucleated Red Blood Cells % 0.4 H Neutrophils # 6.1 Lymphocytes # 1.3 Monocytes # 0.6 Eosinophils # 0.3 Basophils # 0.1 Nucleated Red Blood Cells # 0.0 Sodium Level 134 L Potassium Level 3.9 Chloride Level 96 L Carbon Dioxide Level 31 Anion Gap 11 Blood Urea Nitrogen 26 H Creatinine 0.68 Glucose Level 141 Calcium Level 8.5 Tobramycin Level Trough 1.0 Urine Color LT. YELLOW Urine Clarity CLEAR Urine pH 8.0 Urine Specific [place] 1.010 Urine Ketones NEGATIVE Urine Nitrite NEGATIVE Urine Bilirubin NEGATIVE Urine Urobilinogen 0.2 E.U./dL Urine Leukocyte Esterase NEGATIVE Urine Hemoglobin NEGATIVE Urine Glucose NEGATIVE Urine Total Protein NEGATIVE Medications Medications Current Medications Acetaminophen (Tylenol Liquid) 650 mg Q6H PRN GTB MILD DISCOMFORT Last administered on 12/23/16 11:49; Admin Dose 650 MG; Start 12/18/16 at 23:00 Atorvastatin Calcium (Lipitor) 40 mg QHS GTB Last administered on 12/23/16 21: 18; Admin Dose 40 MG; Start 12/19/16 at 21:00 Bisacodyl (Dulcolax Supp) 10 mg Q2D [place] Last administered on 12/23/16 00:05; Admin Dose 10 MG; Start 12/18/16 at 23:00 Chlorhexidine Gluconate (Peridex) 15 ml Q12H MM Last administered on 12/23/16 11:44; Admin Dose 15 ML; Start 12/18/16 at 23:00 Digoxin (Digoxin) 0.125 mg Q48H GTB Last administered on 12/21/16 13:21; Admin Dose 0.125 MG; Start 12/19/16 at 13:00 Labetalol HCl (Normodyne) 50 mg Q6H GTB Last administered on 12/23/16 06:47; Admin Dose 50 MG; Start 12/18/16 at 23:00 Lansoprazole (Prevacid) 30 mg DAILY GTB Last administered on 12/23/16 09:49; Admin Dose 30 MG; Start 12/19/16 at 09:00 Losartan Potassium (Cozaar) 100 mg DAILY GTB Last administered on 12/23/16 09: 49; Admin Dose 100 MG; Start 12/19/16 at 09:00 Magnesium Hydroxide (Milk Of Mag) 30 ml DAILY GTB Last administered on 09:47; Admin Dose 30 ML; Start 12/19/16 at 09:00 Metoprolol Tartrate (Lopressor) 50 mg BID GTB Last administered on 12/23/16 21 :18; Admin Dose 50 MG; Start 12/19/16 at 09:00 Ondansetron HCl (Zofran Tab) 4 mg Q6H PRN GTB NAUSEA AND/OR VOMITING; Start at 23:00 Sodium Biphosphate/ Sodium Phosphate (Fleet Enema Pediatric) 66.6 ml Q3D PRN [place] CONSTIPATION; Start 12/18/16 at 23:00 Spironolactone (Aldactone) 25 mg BID GTB Last administered on 12/23/16 21:18; Admin Dose 25 MG; Start 12/19/16 at 09:00 Vancomycin HCl (Vancomycin Oral Syringe) 125 mg Q6 PO Last administered on 12/23 17:36; Admin Dose 125 MG; Start 12/19/16 at 00:00 Diltiazem HCl (Cardizem Sr) 60 mg TID PO Last administered on 12/23/16 21:19; Admin Dose 60 MG; Start 12/21/16 at 13:00 Tobramycin TOBRAMYCIN PER PHARMACY NOTE XX ; Start 12/21/16 at 13:00 Tobramycin/Sodium Chloride (Tobramycin/NS) 52 ml @ 104 mls/hr Q24H IVPB Last administered on 12/23/16 18:19; Admin Dose 104 MLS/HR; Start 12/21/16 at 18:00 Apixaban (Eliquis) 5 mg BID PO Last administered on 12/23/16 21:17; Admin Dose 5 MG; Start 12/23/16 at 09:00 DANELLE LEHMAN MD Dec 23, 2016 22:24
[2016-12-24] VITALS (25 sets, daily range): BP systolic 128–170; BP diastolic 58–78; PULSE 50–75; RESP 14–22
[2016-12-24] MEDS: VANCOMYCIN HCL 250 MG/5ML POSYG PO SCH ×4 (00:01→17:15)
[2016-12-24] MEDS: LABETALOL 100 MG TAB GTB SCH ×4 (04:47→23:19)
[2016-12-24] MEDS: CALCIUM CARBONATE 1.25 GM TAB GTB SCH ×2 (05:42→17:15)
[2016-12-24] MEDS: FUROSEMIDE 40 MG TAB GTB SCH ×2 (05:42→17:16)
[2016-12-24 07:27] LABS: ADD SCAN DIFF NO
[2016-12-24 07:33] LABS: BASOPHILS % 0.4 % (0.0-2.0); EOSINOPHILS # 0.3 10^3/ul (0.0-0.5); EOSINOPHILS % 3.1 % (0.0-7.0); HEMATOCRIT 30.6 % (37.0-47.0); HEMOGLOBIN 9.8 g/dl (12.0-16.0); LYMPHOCYTES % 10.3 % (15.0-51.0); MEAN CORPUSCULAR HEMOGLOBIN 30.1 pg (29.0-33.0); MEAN CORPUSCULAR VOLUME 93.9 fl (82.0-101.0); MEAN PLATELET VOLUME 10.8 fl (7.4-10.4); MONOCYTE # 0.4 10^3/ul (0.3-0.9); MONOCYTES % 4.5 % (0.0-11.0); NEUTROPHIL # 7.5 10^3/ul (1.6-7.5); NEUTROPHILS % 81.3 % (39.0-77.0); PLATELET COUNT 209 10^3/UL (140-415); RED BLOOD COUNT 3.26 10^6/ul (4.20-5.40); RED CELL DISTRIBUTION WIDTH 21.6 % (11.5-14.5); WHITE BLOOD COUNT 9.3 10^3/ul (4.8-10.8)
[2016-12-24 07:52] LABS: CREATININE 0.62 mg/dl (0.44-1.00)
[2016-12-24 07:53] LABS: CALCIUM 8.8 mg/dl (8.4-10.2)
[2016-12-24] MEDS: MAGNESIUM HYDROXIDE 30ML CUP GTB SCH (08:37)
[2016-12-24] MEDS: SPIRONOLACTONE 25 MG TAB GTB SCH ×2 (08:38→21:01)
[2016-12-24] MEDS: LOSARTAN 50 MG TAB GTB SCH (08:38)
[2016-12-24] MEDS: APIXABAN 5 MG TABLET PO SCH ×2 (08:39→21:01)
[2016-12-24] MEDS: DILTIAZEM (SR) 60 MG CAP PO SCH ×3 (08:39→21:00)
[2016-12-24] MEDS: LANSOPRAZOLE 30 MG CAP GTB SCH (08:39)
[2016-12-24] MEDS: METOPROLOL 50 MG TAB GTB SCH ×2 (08:39→21:00)
[2016-12-24] MEDS: LEVOTHYROXINE 150 MCG TAB GTB SCH (08:39)
[2016-12-24] MEDS: CHLORHEXIDINE GLUCONATE 15 ML UD CUP MM SCH ×2 (10:21→23:19)
[2016-12-24] MEDS: ACETAMINOPHEN 650MG/20.3ML CUP GTB PRN (10:21)
--- NOTE | 2016-12-24 11:51 | DS ---
DATE OF ADMISSION: 12/18/2016 DATE OF DISCHARGE: HOSPITAL COURSE: This is an 86-year-old female with a past medical history of ventilatory dependent respiratory failure, history of dysphagia, status post PEG, history of chronic encephalopathy, hist ory of CVA, history of dyslipidemia, history of hypertension, hypothyroidism, AFib, who presents to [facility] for evaluation of anemia. The patient was recently admitted to [facility] subacute facility from [facility]. The patient while at [facility] dev eloped Clostridium difficile colitis and herpes zoster as well as a urinary tract infection. The pa tejas also was noted to be pale and anemic with hemoglobin of g/dL. As a result, she was bro ught into [facility] and admitted to telemetry for evaluation. In terms of anemia , etiology is secondary to acute lower GI bleed. The patient was seen by Dr. Rai. EGD, colonosco py was performed which showed evidence of gastritis and enlarged hemorrhoids. The patient was trans fused 2 units PRBC, was initially taken off anticoagulation. She was also seen by casting and pasting supervisor, Dr. Mendoza. The patient's hemoglobin levels have stabilized after transfusion. There is no recurre nt episodes of bleeding. The patient was initiated back on anticoagulation therapy and has been tole rating well. In terms of patient's infectious etiology the patient had a urinary tract infection wh ere she is being treated with antibiotics with good clinical response. Patient was also on oral van comycin for vancomycin. Patient's other medical problems including CHF. The patient was decompensat ed on this admission. She was treated with diuretic therapy and has been clinically improving. The patient's other medical problems including CVA, hypertension, hypothyroidism, azotemia have been sta ble during the hospital course. The patient also had acute encephalopathy during his hospital course and had improved with antibiotic therapy. Currently, at this time, the patient is stable, in no ac kake distress ad will be discharged back to her subacute facility for continued care. At the time transfer, the patient is stable, in no acute distress. FINAL DIAGNOSES: 1. Acute lower gastrointestinal bleed. 2. Atrial fibrillation. 3. Sepsis secondary to urinary tract infection, Clostridium difficile colitis. 4. Ventilator dependent respiratory failure. 5. Dysphagia, status post percutaneous endoscopic gastrostomy. 6. Acute systolic, diastolic heart failure. 7. Acute on chronic encephalopathy. 8. Anemia secondary to gastrointestinal bleed. 9. History of cerebrovascular accident. 10. Hypertension. 11. Hypothyroidism. 12. Renal insufficiency. 13. Mild hyponatremia. 14. Herpes zoster, resolved. FINAL MEDICATIONS: Please see reconciliation list. At the time of discharge, the patient is stable, in no acute distress. Please note, I spent over 40 minutes of time preparing the patient's discharge, discussed the case w [facility] and the patient's daughter. Dictated By: NIRMALA RODRIGUEZ/TONIO Conf#: [id number] DID#: [id number]
--- NOTE | 2016-12-24 12:39 | CONS ---
Date/Time of Note Date/Time of Note DATE: 12/24/16 TIME: 12:37 Assessment/Plan Assessment/Plan Chief Complaint/Hosp Course SUBJECTIVE: No events overnight. No fevers. ANTIMICROBIALS: Oral vancomycin, Tobramycin INDWELLINGS: Trach, PEG. PHYSICAL EXAMINATION: GENERAL: This is an obese, chronically ill-appearing, elderly woman, who is nonverbal, noncommunicative. The patient is in no distress. HEENT: Head atraumatic, normocephalic. Sclerae are anicteric. Buccal mucosa dry. NECK: Supple. CHEST: Chest rise is symmetrical. Breath sounds diminished to the bases. HEART: S1, S2. ABDOMEN: Soft, bowel tones present. EXTREMITIES: Without cyanosis. ASSESSMENT: 1. Acute anemia with gastrointestinal bleeding. Status post blood transfusion. Pending colonoscopy. 2. Pseudomonas aeruginosa urinary tract infection vs colonization. 3. Clostridium difficile colitis, in treatment. 4. Respiratory failure, chronic. 5. Congestive heart failure. 6. Atrial fibrillation. PLAN: The patient remains stable, continue Tobramycin for 2 more days, PO Vanco for 7 more days, will give a dose of Diflucan. Pending [facility] [address] [place] Problems: Consultation Date/Type/Reason Admit Date/Time Dec 18, 2016 at 16:05 Initial Consult Date 12/19/16 Type of Consultation: id Referring Provider: NIRMALA MARAVILLA DO Exam/Review of Systems Vital Signs Vitals Vital Signs Date Time Temp Pulse Resp B/P Pulse Ox O2 Delivery O2 Flow Rate FiO2 12/24/16 12:07 99.0 68 18 128/58 97 12/24/16 08:45 40 12/21/16 13:12 Trach Collar Intake and Output 12/23/16 12/23/16 12/24/16 15:00 23:00 07:00 Intake Total 400 ml 402 ml 750 ml Output Total 800 ml Balance 400 ml 402 ml -50 ml Results Result Diagram: 12/24/16 0638 12/24/16 0630 Results 24 hrs Laboratory Tests Test 12/23/16 17:46 12/23/16 18:00 12/24/16 06:30 12/24/16 06:38 Tobramycin Level Trough 1.0 Urine Color LT. YELLOW Urine Clarity CLEAR Urine pH 8.0 Urine Specific [place] 1.010 Urine Ketones NEGATIVE Urine Nitrite NEGATIVE Urine Bilirubin NEGATIVE Urine Urobilinogen 0.2 E.U./dL Urine Leukocyte Esterase NEGATIVE Urine Hemoglobin NEGATIVE Urine Glucose NEGATIVE Urine Total Protein NEGATIVE Sodium Level 135 Potassium Level 4.0 Chloride Level 98 Carbon Dioxide Level 30 Anion Gap 11 Blood Urea Nitrogen 24 H Creatinine 0.62 Glucose Level 123 Calcium Level 8.8 White Blood Count 9.3 Red Blood Count 3.26 L Hemoglobin 9.8 L Hematocrit 30.6 L Mean Corpuscular Volume 93.9 Mean Corpuscular Hemoglobin 30.1 Mean Corpuscular Hemoglobin Concent 32.0 Red Cell Distribution Width 21.6 H Platelet Count 209 Mean Platelet Volume 10.8 H Neutrophils % 81.3 H Lymphocytes % 10.3 L Monocytes % 4.5 Eosinophils % 3.1 Basophils % 0.4 Nucleated Red Blood Cells % 0.0 Neutrophils # 7.5 Lymphocytes # 1.0 Monocytes # 0.4 Eosinophils # 0.3 Basophils # 0.0 Nucleated Red Blood Cells # 0.0 Medications Medications Current Medications Acetaminophen (Tylenol Liquid) 650 mg Q6H PRN GTB MILD DISCOMFORT Last administered on 12/24/16 10:21; Admin Dose 650 MG; Start 12/18/16 at 23:00 Atorvastatin Calcium (Lipitor) 40 mg QHS GTB Last administered on 12/23/16 21: 18; Admin Dose 40 MG; Start 12/19/16 at 21:00 Bisacodyl (Dulcolax Supp) 10 mg Q2D [place] Last administered on 12/23/16 00:05; Admin Dose 10 MG; Start 12/18/16 at 23:00 Chlorhexidine Gluconate (Peridex) 15 ml Q12H MM Last administered on 12/24/16 10:21; Admin Dose 15 ML; Start 12/18/16 at 23:00 Digoxin (Digoxin) 0.125 mg Q48H GTB Last administered on 12/21/16 13:21; Admin Dose 0.125 MG; Start 12/19/16 at 13:00 Labetalol HCl (Normodyne) 50 mg Q6H GTB Last administered on 12/24/16 10:21; Admin Dose 50 MG; Start 12/18/16 at 23:00 Lansoprazole (Prevacid) 30 mg DAILY GTB Last administered on 12/24/16 08:39; Admin Dose 30 MG; Start 12/19/16 at 09:00 Losartan Potassium (Cozaar) 100 mg DAILY GTB Last administered on 12/24/16 08: 38; Admin Dose 100 MG; Start 12/19/16 at 09:00 Magnesium Hydroxide (Milk Of Mag) 30 ml DAILY GTB Last administered on 08:37; Admin Dose 30 ML; Start 12/19/16 at 09:00 Metoprolol Tartrate (Lopressor) 50 mg BID GTB Last administered on 12/24/16 08 :39; Admin Dose 50 MG; Start 12/19/16 at 09:00 Ondansetron HCl (Zofran Tab) 4 mg Q6H PRN GTB NAUSEA AND/OR VOMITING; Start at 23:00 Sodium Biphosphate/ Sodium Phosphate (Fleet Enema Pediatric) 66.6 ml Q3D PRN [place] CONSTIPATION; Start 12/18/16 at 23:00 Spironolactone (Aldactone) 25 mg BID GTB Last administered on 12/24/16 08:38; Admin Dose 25 MG; Start 12/19/16 at 09:00 Vancomycin HCl (Vancomycin Oral Syringe) 125 mg Q6 PO Last administered on 12/24 12:16; Admin Dose 125 MG; Start 12/19/16 at 00:00 Diltiazem HCl (Cardizem Sr) 60 mg TID PO Last administered on 12/24/16 12:17; Admin Dose 60 MG; Start 12/21/16 at 13:00 Tobramycin TOBRAMYCIN PER PHARMACY NOTE XX ; Start 12/21/16 at 13:00 Tobramycin/Sodium Chloride (Tobramycin/NS) 52 ml @ 104 mls/hr Q24H IVPB Last administered on 12/23/16 18:19; Admin Dose 104 MLS/HR; Start 12/21/16 at 18:00 Apixaban (Eliquis) 5 mg BID PO Last administered on 12/24/16 08:39; Admin Dose 5 MG; Start 12/23/16 at 09:00 NIKOLAS WATTS NP Dec 24, 2016 12:39
[2016-12-24] MEDS ORDERED: FLUCONAZOLE 200 MG TAB PO ONE (13:00)
--- NOTE | 2016-12-24 13:04 | CONS ---
Date/Time of Note Date/Time of Note DATE: 12/24/16 TIME: 13:04 Assessment/Plan Assessment/Plan Chief Complaint/Hosp Course Anemia- n- cytic with increased rdw no evidence of B12 deficiency Will continue to monitor. POST EGD and colonoscopy.-Gastritis and Hemorrhoids POST Acute lower gastrointestinal bleed. The patient is status post blood transfusion. Hemoglobin levels remain stable. POST EGD and colonoscopy- Gastritis and Hemorrhoids Clostridium difficile colitis. The patient is on vancomycin. Atrial fibrillation, currently rate controlled. Continue the current medical management and follow up with cardiology. Anticoagulation is being held at this time. Sepsis secondary to a recent urinary tract infection and Clostridium difficile colitis. The patient's repeat stool for C. diff was negative. The patient remains on oral vancomycin. Follow up with infectious disease. Ventilatory-dependent respiratory failure. Dysphagia. Status post PEG. Continue tube feeding. Acute systolic and diastolic heart failure. The patient is currently decompensated. Continue medical management. Continue diuretic therapy. Acute on chronic encephalopathy. Etiology is toxic metabolic. The patient's mental status appears to be improving. Continue to monitor. History of cerebrovascular accident. Continue medical management. Hypertension. Continue current blood pressure regimen. Hypothyroidism. The patient's CCH remains elevated. Will increase Synthroid to 150 mcg daily. Renal insufficiency. Improved. Continue supportive care. Mild hyperkalemia. Resolved. Shingles. The patient is status post Valtrex. Gastrointestinal and deep venous thrombosis prophylaxis. Continue proton pump inhibitor and sequential leg squeezers. Problems: Consultation Date/Type/Reason Admit Date/Time Dec 18, 2016 at 16:05 Initial Consult Date 12/19/16 Type of Consultation: [facility] Referring Provider: NIRMALA TAVAREZ DO 24 HR Interval Summary Free Text/Dictation No bleeding as per the staff Constitutional: no complaints Exam/Review of Systems Vital Signs Vitals Vital Signs Date Time Temp Pulse Resp B/P Pulse Ox O2 Delivery O2 Flow Rate FiO2 12/24/16 12:54 55 12/24/16 12:07 99.0 18 128/58 97 12/24/16 08:45 40 12/21/16 13:12 Trach Collar Intake and Output 12/23/16 12/23/16 12/24/16 15:00 23:00 07:00 Intake Total 400 ml 402 ml 750 ml Output Total 800 ml Balance 400 ml 402 ml -50 ml Exam Exam Constitutional: alert, oriented, well developed Psych: nl mood/affect, no complaints Head: atraumatic, normocephalic Eyes: EOMI, PERRL, nl conjunctiva, nl lids, nl sclera ENMT: nl external ears & nose, nl lips & teeth, nl nasal mucosa & septum Neck: non-tender, supple Respiratory: clear to auscultation, normal air movement Cardiovascular: nl pulses, regular rate and rhythm Gastrointestinal: nl liver, spleen, non-tender, soft Musculoskeletal: nl extremities to inspection, nl gait and stance Extremities: normal pulses Neurological: [employer] II-XII intact, nl mental status, nl speech, nl strength Skin: nl turgor, No rash or lesions Lymph: nl lymph nodes Results Result Diagram: 12/24/16 0638 12/24/16 0630 Results 24 hrs Laboratory Tests Test 12/23/16 17:46 12/23/16 18:00 12/24/16 06:30 12/24/16 06:38 Tobramycin Level Trough 1.0 Urine Color LT. YELLOW Urine Clarity CLEAR Urine pH 8.0 Urine Specific [place] 1.010 Urine Ketones NEGATIVE Urine Nitrite NEGATIVE Urine Bilirubin NEGATIVE Urine Urobilinogen 0.2 E.U./dL Urine Leukocyte Esterase NEGATIVE Urine Hemoglobin NEGATIVE Urine Glucose NEGATIVE Urine Total Protein NEGATIVE Sodium Level 135 Potassium Level 4.0 Chloride Level 98 Carbon Dioxide Level 30 Anion Gap 11 Blood Urea Nitrogen 24 H Creatinine 0.62 Glucose Level 123 Calcium Level 8.8 White Blood Count 9.3 Red Blood Count 3.26 L Hemoglobin 9.8 L Hematocrit 30.6 L Mean Corpuscular Volume 93.9 Mean Corpuscular Hemoglobin 30.1 Mean Corpuscular Hemoglobin Concent 32.0 Red Cell Distribution Width 21.6 H Platelet Count 209 Mean Platelet Volume 10.8 H Neutrophils % 81.3 H Lymphocytes % 10.3 L Monocytes % 4.5 Eosinophils % 3.1 Basophils % 0.4 Nucleated Red Blood Cells % 0.0 Neutrophils # 7.5 Lymphocytes # 1.0 Monocytes # 0.4 Eosinophils # 0.3 Basophils # 0.0 Nucleated Red Blood Cells # 0.0 Medications Medications Current Medications Acetaminophen (Tylenol Liquid) 650 mg Q6H PRN GTB MILD DISCOMFORT Last administered on 12/24/16t 10:21; Admin Dose 650 MG; Start 12/18/16 at 23:00 Atorvastatin Calcium (Lipitor) 40 mg QHS GTB Last administered on 12/23/16 21: 18; Admin Dose 40 MG; Start 12/19/16 at 21:00 Bisacodyl (Dulcolax Supp) 10 mg Q2D [place] Last administered on 12/23/16 00:05; Admin Dose 10 MG; Start 12/18/16 at 23:00 Chlorhexidine Gluconate (Peridex) 15 ml Q12H MM Last administered on 12/24/16 10:21; Admin Dose 15 ML; Start 12/18/16 at 23:00 Digoxin (Digoxin) 0.125 mg Q48H GTB Last administered on 12/21/16 13:21; Admin Dose 0.125 MG; Start 12/19/16 at 13:00 Labetalol HCl (Normodyne) 50 mg Q6H GTB Last administered on 12/24/16 10:21; Admin Dose 50 MG; Start 12/18/16 at 23:00 Lansoprazole (Prevacid) 30 mg DAILY GTB Last administered on 12/24/16 08:39; Admin Dose 30 MG; Start 12/19/16 at 09:00 Losartan Potassium (Cozaar) 100 mg DAILY GTB Last administered on 12/24/16 08: 38; Admin Dose 100 MG; Start 12/19/16 at 09:00 Magnesium Hydroxide (Milk Of Mag) 30 ml DAILY GTB Last administered on 08:37; Admin Dose 30 ML; Start 12/19/16 at 09:00 Metoprolol Tartrate (Lopressor) 50 mg BID GTB Last administered on 12/24/16 08 :39; Admin Dose 50 MG; Start 12/19/16 at 09:00 Ondansetron HCl (Zofran Tab) 4 mg Q6H PRN GTB NAUSEA AND/OR VOMITING; Start at 23:00 Sodium Biphosphate/ Sodium Phosphate (Fleet Enema Pediatric) 66.6 ml Q3D PRN [place] CONSTIPATION; Start 12/18/16 at 23:00 Spironolactone (Aldactone) 25 mg BID GTB Last administered on 12/24/16 08:38; Admin Dose 25 MG; Start 12/19/16 at 09:00 Vancomycin HCl (Vancomycin Oral Syringe) 125 mg Q6 PO Last administered on 12/24 12:16; Admin Dose 125 MG; Start 12/19/16 at 00:00 Diltiazem HCl (Cardizem Sr) 60 mg TID PO Last administered on 12/24/16 12:17; Admin Dose 60 MG; Start 12/21/16 at 13:00 Tobramycin TOBRAMYCIN PER PHARMACY NOTE XX ; Start 12/21/16 at 13:00 Tobramycin/Sodium Chloride (Tobramycin/NS) 52 ml @ 104 mls/hr Q24H IVPB Last administered on 12/23/16 18:19; Admin Dose 104 MLS/HR; Start 12/21/16 at 18:00 Apixaban (Eliquis) 5 mg BID PO Last administered on 12/24/16 08:39; Admin Dose 5 MG; Start 12/23/16 at 09:00 DANELLE LEHMAN MD Dec 24, 2016 13:04
--- NOTE | 2016-12-24 13:05 | CONS ---
Date/Time of Note Date/Time of Note DATE: 12/24/16 TIME: 13:04 Assessment/Plan Assessment/Plan Chief Complaint/Hosp Course Anemia- n- cytic with increased rdw no evidence of B12 deficiency Will continue to monitor. POST EGD and colonoscopy. POST Acute lower gastrointestinal bleed. The patient is status post blood transfusion. Hemoglobin levels remain stable. POST EGD and colonoscopy Atrial fibrillation, currently rate controlled. Continue the current medical management and follow up with cardiology. Anticoagulation is being held at this time. Sepsis secondary to a recent urinary tract infection and Clostridium difficile colitis. The patient's repeat stool for C. diff was negative. The patient remains on oral vancomycin. Follow up with infectious disease. Ventilatory-dependent respiratory failure. Dysphagia. Status post PEG. Continue tube feeding. Acute systolic and diastolic heart failure. The patient is currently decompensated. Continue medical management. Continue diuretic therapy. Acute on chronic encephalopathy. Etiology is toxic metabolic. The patient's mental status appears to be improving. Continue to monitor. History of cerebrovascular accident. Continue medical management. Hypertension. Continue current blood pressure regimen. Hypothyroidism. The patient's CCH remains elevated. Will increase Synthroid to 150 mcg daily. Renal insufficiency. Improved. Continue supportive care. Mild hyperkalemia. Resolved. Shingles. The patient is status post Valtrex. Gastrointestinal and deep venous thrombosis prophylaxis. Continue proton pump inhibitor and sequential leg squeezers. Problems: Consultation Date/Type/Reason Admit Date/Time Dec 18, 2016 at 16:05 Initial Consult Date 12/19/16 Type of Consultation: [facility] Referring Provider: NIRMALA TAVAREZ DO 24 HR Interval Summary Free Text/Dictation stable no bleeding Exam/Review of Systems Vital Signs Vitals Vital Signs Date Time Temp Pulse Resp B/P Pulse Ox O2 Delivery O2 Flow Rate FiO2 12/24/16 12:54 55 12/24/16 12:07 99.0 18 128/58 97 12/24/16 08:45 40 12/21/16 13:12 Trach Collar Intake and Output 12/23/16 12/23/16 12/24/16 15:00 23:00 07:00 Intake Total 400 ml 402 ml 750 ml Output Total 800 ml Balance 400 ml 402 ml -50 ml Exam OBJECTIVE: HEENT: Head is normocephalic. NECK: Supple. HEART: Regular rate. LUNGS: Show diminished breath sounds at the base. ABDOMEN: Soft, nontender to palpation. No rebound or guarding. EXTREMITIES: Negative for clubbing, cyanosis, no edema. DERMATOLOGIC: No rashes. MUSCULOSKELETAL: No joint effusions. NEUROLOGIC: No change in exam. Results Result Diagram: 12/24/16 0638 12/24/16 0630 Results 24 hrs Laboratory Tests Test 12/23/16 17:46 12/23/16 18:00 12/24/16 06:30 12/24/16 06:38 Tobramycin Level Trough 1.0 Urine Color LT. YELLOW Urine Clarity CLEAR Urine pH 8.0 Urine Specific [place] 1.010 Urine Ketones NEGATIVE Urine Nitrite NEGATIVE Urine Bilirubin NEGATIVE Urine Urobilinogen 0.2 E.U./dL Urine Leukocyte Esterase NEGATIVE Urine Hemoglobin NEGATIVE Urine Glucose NEGATIVE Urine Total Protein NEGATIVE Sodium Level 135 Potassium Level 4.0 Chloride Level 98 Carbon Dioxide Level 30 Anion Gap 11 Blood Urea Nitrogen 24 H Creatinine 0.62 Glucose Level 123 Calcium Level 8.8 White Blood Count 9.3 Red Blood Count 3.26 L Hemoglobin 9.8 L Hematocrit 30.6 L Mean Corpuscular Volume 93.9 Mean Corpuscular Hemoglobin 30.1 Mean Corpuscular Hemoglobin Concent 32.0 Red Cell Distribution Width 21.6 H Platelet Count 209 Mean Platelet Volume 10.8 H Neutrophils % 81.3 H Lymphocytes % 10.3 L Monocytes % 4.5 Eosinophils % 3.1 Basophils % 0.4 Nucleated Red Blood Cells % 0.0 Neutrophils # 7.5 Lymphocytes # 1.0 Monocytes # 0.4 Eosinophils # 0.3 Basophils # 0.0 Nucleated Red Blood Cells # 0.0 Medications Medications Current Medications Acetaminophen (Tylenol Liquid) 650 mg Q6H PRN GTB MILD DISCOMFORT Last administered on 12/24/16 10:21; Admin Dose 650 MG; Start 12/18/16 at 23:00 Atorvastatin Calcium (Lipitor) 40 mg QHS GTB Last administered on 12/23/16 21: 18; Admin Dose 40 MG; Start 12/19/16 at 21:00 Bisacodyl (Dulcolax Supp) 10 mg Q2D [place] Last administered on 12/23/16 00:05; Admin Dose 10 MG; Start 12/18/16 at 23:00 Chlorhexidine Gluconate (Peridex) 15 ml Q12H MM Last administered on 12/24/16 10:21; Admin Dose 15 ML; Start 12/18/16 at 23:00 Digoxin (Digoxin) 0.125 mg Q48H GTB Last administered on 12/21/16 13:21; Admin Dose 0.125 MG; Start 12/19/16 at 13:00 Labetalol HCl (Normodyne) 50 mg Q6H GTB Last administered on 12/24/16 10:21; Admin Dose 50 MG; Start 12/18/16 at 23:00 Lansoprazole (Prevacid) 30 mg DAILY GTB Last administered on 12/24/16 08:39; Admin Dose 30 MG; Start 12/19/16 at 09:00 Losartan Potassium (Cozaar) 100 mg DAILY GTB Last administered on 12/24/16 08: 38; Admin Dose 100 MG; Start 12/19/16 at 09:00 Magnesium Hydroxide (Milk Of Mag) 30 ml DAILY GTB Last administered on 08:37; Admin Dose 30 ML; Start 12/19/16 at 09:00 Metoprolol Tartrate (Lopressor) 50 mg BID GTB Last administered on 12/24/16 08 :39; Admin Dose 50 MG; Start 12/19/16 at 09:00 Ondansetron HCl (Zofran Tab) 4 mg Q6H PRN GTB NAUSEA AND/OR VOMITING; Start at 23:00 Sodium Biphosphate/ Sodium Phosphate (Fleet Enema Pediatric) 66.6 ml Q3D PRN [place] CONSTIPATION; Start 12/18/16 at 23:00 Spironolactone (Aldactone) 25 mg BID GTB Last administered on 12/24/16 08:38; Admin Dose 25 MG; Start 12/19/16 at 09:00 Vancomycin HCl (Vancomycin Oral Syringe) 125 mg Q6 PO Last administered on 12/24 12:16; Admin Dose 125 MG; Start 12/19/16 at 00:00 Diltiazem HCl (Cardizem Sr) 60 mg TID PO Last administered on 12/24/16 12:17; Admin Dose 60 MG; Start 12/21/16 at 13:00 Tobramycin TOBRAMYCIN PER PHARMACY NOTE XX ; Start 12/21/16 at 13:00 Tobramycin/Sodium Chloride (Tobramycin/NS) 52 ml @ 104 mls/hr Q24H IVPB Last administered on 12/23/16 18:19; Admin Dose 104 MLS/HR; Start 12/21/16 at 18:00 Apixaban (Eliquis) 5 mg BID PO Last administered on 12/24/16 08:39; Admin Dose 5 MG; Start 12/23/16 at 09:00 DANELLE LEHMAN MD Dec 24, 2016 13:04
--- NOTE | 2016-12-24 16:41 | CONS ---
Date/Time of Note Date/Time of Note DATE: 12/24/16 TIME: 16:39 Consult Date/Type/Reason Admit Date/Time Dec 18, 2016 at 16:05 Initial Consult Date 12/19/16 Type of Consultation: pulmonary Ordering Provider: NIRMALA TAVAREZ DO Subjective Patient is stable this morning no new events Continues mechanical ventilation with no evidence of respiratory distress Remains hemodynamically stable Objective Vital Signs Date Time Temp Pulse Resp B/P Pulse Ox O2 Delivery O2 Flow Rate FiO2 12/24/16 16:23 98.0 66 20 159/74 94 12/24/16 14:50 35 12/21/16 13:12 Trach Collar Intake and Output 12/23/16 12/23/16 12/24/16 15:00 23:00 07:00 Intake Total 400 ml 402 ml 750 ml Output Total 800 ml Balance 400 ml 402 ml -50 ml Exam PHYSICAL EXAMINATION GENERAL: Elderly lady on mechanical ventilation appears comfortable at rest VITAL SIGNS: see below. HEENT: Pupils equal, round, and reactive to light. Tracheostomy site clean and intact. CARDIAC: S1, S2, no added sounds or murmurs CHEST: Diminished air entry bilaterally. ABDOMEN: Mildly distended. Bowel sounds present no guarding or rebound EXTREMITIES: No cyanosis, clubbing edema +1 NEUROLOGIC: Unable to assess Results/Medications Result Diagram: 12/24/16 0638 12/24/16 0630 Results 24 hrs Laboratory Tests Test 12/23/16 17:46 12/23/16 18:00 12/24/16 06:30 12/24/16 06:38 Tobramycin Level Trough 1.0 Urine Color LT. YELLOW Urine Clarity CLEAR Urine pH 8.0 Urine Specific [place] 1.010 Urine Ketones NEGATIVE Urine Nitrite NEGATIVE Urine Bilirubin NEGATIVE Urine Urobilinogen 0.2 E.U./dL Urine Leukocyte Esterase NEGATIVE Urine Hemoglobin NEGATIVE Urine Glucose NEGATIVE Urine Total Protein NEGATIVE Sodium Level 135 Potassium Level 4.0 Chloride Level 98 Carbon Dioxide Level 30 Anion Gap 11 Blood Urea Nitrogen 24 H Creatinine 0.62 Glucose Level 123 Calcium Level 8.8 White Blood Count 9.3 Red Blood Count 3.26 L Hemoglobin 9.8 L Hematocrit 30.6 L Mean Corpuscular Volume 93.9 Mean Corpuscular Hemoglobin 30.1 Mean Corpuscular Hemoglobin Concent 32.0 Red Cell Distribution Width 21.6 H Platelet Count 209 Mean Platelet Volume 10.8 H Neutrophils % 81.3 H Lymphocytes % 10.3 L Monocytes % 4.5 Eosinophils % 3.1 Basophils % 0.4 Nucleated Red Blood Cells % 0.0 Neutrophils # 7.5 Lymphocytes # 1.0 Monocytes # 0.4 Eosinophils # 0.3 Basophils # 0.0 Nucleated Red Blood Cells # 0.0 Medications Current Medications Acetaminophen (Tylenol Liquid) 650 mg Q6H PRN GTB MILD DISCOMFORT Last administered on 12/24/16 10:21; Admin Dose 650 MG; Start 12/18/16 at 23:00 Atorvastatin Calcium (Lipitor) 40 mg QHS GTB Last administered on 12/23/16 21: 18; Admin Dose 40 MG; Start 12/19/16 at 21:00 Bisacodyl (Dulcolax Supp) 10 mg Q2D [place] Last administered on 12/23/16 00:05; Admin Dose 10 MG; Start 12/18/16 at 23:00 Chlorhexidine Gluconate (Peridex) 15 ml Q12H MM Last administered on 12/24/16 10:21; Admin Dose 15 ML; Start 12/18/16 at 23:00 Labetalol HCl (Normodyne) 50 mg Q6H GTB Last administered on 12/24/16 10:21; Admin Dose 50 MG; Start 12/18/16 at 23:00 Lansoprazole (Prevacid) 30 mg DAILY GTB Last administered on 12/24/16 08:39; Admin Dose 30 MG; Start 12/19/16 at 09:00 Losartan Potassium (Cozaar) 100 mg DAILY GTB Last administered on 12/24/16 08: 38; Admin Dose 100 MG; Start 12/19/16 at 09:00 Magnesium Hydroxide (Milk Of Mag) 30 ml DAILY GTB Last administered on 08:37; Admin Dose 30 ML; Start 12/19/16 at 09:00 Metoprolol Tartrate (Lopressor) 50 mg BID GTB Last administered on 12/24/16 08 :39; Admin Dose 50 MG; Start 12/19/16 at 09:00 Ondansetron HCl (Zofran Tab) 4 mg Q6H PRN GTB NAUSEA AND/OR VOMITING; Start at 23:00 Sodium Biphosphate/ Sodium Phosphate (Fleet Enema Pediatric) 66.6 ml Q3D PRN [place] CONSTIPATION; Start 12/18/16 at 23:00 Spironolactone (Aldactone) 25 mg BID GTB Last administered on 12/24/16 08:38; Admin Dose 25 MG; Start 12/19/16 at 09:00 Vancomycin HCl (Vancomycin Oral Syringe) 125 mg Q6 PO Last administered on 12/24 12:16; Admin Dose 125 MG; Start 12/19/16 at 00:00 Diltiazem HCl (Cardizem Sr) 60 mg TID PO Last administered on 12/24/16 12:17; Admin Dose 60 MG; Start 12/21/16 at 13:00 Tobramycin TOBRAMYCIN PER PHARMACY NOTE XX ; Start 12/21/16 at 13:00 Tobramycin/Sodium Chloride (Tobramycin/NS) 52 ml @ 104 mls/hr Q24H IVPB Last administered on 12/23/16 18:19; Admin Dose 104 MLS/HR; Start 12/21/16 at 18:00 Apixaban (Eliquis) 2.5 mg BID PO ; Start 12/24/16 at 21:00 Assessment/Plan Chief Complaint/Hosp Course Assessment 1. Vent dependent respiratory failure 2. History of anemia status post packed red blood cells and GI evaluation 3. History of dysphagia with G-tube 4. Dementia Plan 1. Continue mechanical ventilation 2. GI recommendations 3. Tube feeding as tolerated 4. DVT and GI prophylaxis Disposition Discharge planning okay from pulmonary standpoint Problems: MELBA SEVERINO MD[facility] Dec 24, 2016 16:41
[2016-12-24] MEDS: TOBRAMYCIN 80 MG in SOD CHLORIDE 0.9% 50 ML IVPB SCH (17:15)
--- NOTE | 2016-12-24 17:58 | PN ---
DATE: 12/24/2016 CARDIOLOGY FOLLOWUP SUBJECTIVE: No new cardiac event. No chest pain or pressure. The patient remains in atrial fibril lation. Heart rate has remained stable. Discussed with the staff. MEDICATIONS: Reviewed. PHYSICAL EXAMINATION: VITAL SIGNS: Temperature 99, heart rate of 61, blood pressure 128/58, respiration rate of 20. HEENT: Normocephalic, atraumatic. Pupils are equal. CARDIOVASCULAR: Irregularly irregular. PULMONARY: With no wheezes heard. GASTROINTESTINAL: Soft, nontender. EXTREMITIES: No significant edema. NEUROLOGIC: Awake with right-sided weakness. PSYCHIATRIC: Appears to be calm. LABORATORY: WBC of 9.3, hemoglobin 9.8, platelets 219. Sodium 135, potassium 4, BUN of 27, creatin ine 0.62, glucose of 123. IMPRESSION: 1. He is in atrial fibrillation, currently on anticoagulation. 2. Severe anemia. 3. Hypoxemic respiratory failure, status post tracheostomy. 4. Status post sepsis. 5. Congestive heart failure on fluid overload, currently stable. 6. Hypertension. 7. Hypothyroidism. 8. Renal insufficiency. RECOMMENDATIONS: I have cut down on Eliquis to 2.5. Digoxin will be discontinued since the patient 's heart rate has remained stable off of it for now on the low side. We will continue with the rest of her cardiac care. Dictated By: LETICIA SHAW/TONIO Conf#: [id number] DID#: [id number] CC: NIRMALA TAVAREZ DO;*EndCC*
--- NOTE | 2016-12-24 20:24 | CONS ---
Date/Time of Note Date/Time of Note DATE: 12/24/16 TIME: 20:24 Assessment/Plan Assessment/Plan Additional Assessment/Plan Additional Assessment/Plan IMPRESSION: 1. Gastritis and Hemorrhoids 2. Clostridium difficile colitis. The patient is on vancomycin. 3. Shingles. 4. Ventilator-dependent respiratory failure. 5. Chronic atrial fibrillation. 6. Cerebrovascular accident. 7. Encephalopathy. 8. Pneumonia. 9. Hypertension. 10. Hypothyroidism. 11. Anemia Plan continue present care ok to start on blood thinner and monitor for bleeding We will monitor H&H Consultation Date/Type/Reason Admit Date/Time Dec 18, 2016 at 16:05 Initial Consult Date 12/19/16 Type of Consultation: pulmonary Referring Provider: NIRMALA TAVAREZ DO 24 HR Interval Summary Free Text/Dictation No bleeding as per the staff Constitutional: no complaints Exam/Review of Systems Vital Signs Vitals Vital Signs Date Time Temp Pulse Resp B/P Pulse Ox O2 Delivery O2 Flow Rate FiO2 12/24/16 20:13 98.2 57 18 170/78 96 12/24/16 19:15 35 12/21/16 13:12 Trach Collar Intake and Output 12/23/16 12/23/16 12/24/16 15:00 23:00 07:00 Intake Total 400 ml 402 ml 750 ml Output Total 800 ml Balance 400 ml 402 ml -50 ml Exam Constitutional: alert, oriented, well developed Psych: nl mood/affect, no complaints Head: atraumatic, normocephalic Eyes: EOMI, PERRL, nl conjunctiva, nl lids, nl sclera ENMT: nl external ears & nose, nl lips & teeth, nl nasal mucosa & septum Neck: non-tender, supple Respiratory: clear to auscultation, normal air movement Cardiovascular: nl pulses, regular rate and rhythm Gastrointestinal: nl liver, spleen, non-tender, soft Musculoskeletal: nl extremities to inspection, nl gait and stance Extremities: normal pulses Neurological: WRAPPER REWINDER II-XII intact, nl mental status, nl speech, nl strength Skin: nl turgor, No rash or lesions Lymph: nl lymph nodes Results Result Diagram: 12/24/16 0638 12/24/16 0630 Results 24 hrs Laboratory Tests Test 12/24/16 06:30 12/24/16 06:38 Sodium Level 135 Potassium Level 4.0 Chloride Level 98 Carbon Dioxide Level 30 Anion Gap 11 Blood Urea Nitrogen 24 H Creatinine 0.62 Glucose Level 123 Calcium Level 8.8 White Blood Count 9.3 Red Blood Count 3.26 L Hemoglobin 9.8 L Hematocrit 30.6 L Mean Corpuscular Volume 93.9 Mean Corpuscular Hemoglobin 30.1 Mean Corpuscular Hemoglobin Concent 32.0 Red Cell Distribution Width 21.6 H Platelet Count 209 Mean Platelet Volume 10.8 H Neutrophils % 81.3 H Lymphocytes % 10.3 L Monocytes % 4.5 Eosinophils % 3.1 Basophils % 0.4 Nucleated Red Blood Cells % 0.0 Neutrophils # 7.5 Lymphocytes # 1.0 Monocytes # 0.4 Eosinophils # 0.3 Basophils # 0.0 Nucleated Red Blood Cells # 0.0 Medications Medications Current Medications Acetaminophen (Tylenol Liquid) 650 mg Q6H PRN GTB MILD DISCOMFORT Last administered on 12/24/16 10:21; Admin Dose 650 MG; Start 12/18/16 at 23:00 Atorvastatin Calcium (Lipitor) 40 mg QHS GTB Last administered on 12/23/16 21: 18; Admin Dose 40 MG; Start 12/19/16 at 21:00 Bisacodyl (Dulcolax Supp) 10 mg Q2D AL Last administered on 12/23/16 00:05; Admin Dose 10 MG; Start 12/18/16 at 23:00 Chlorhexidine Gluconate (Peridex) 15 ml Q12H MM Last administered on 12/24/16 10:21; Admin Dose 15 ML; Start 12/18/16 at 23:00 Labetalol HCl (Normodyne) 50 mg Q6H GTB Last administered on 12/24/16 10:21; Admin Dose 50 MG; Start 12/18/16 at 23:00 Lansoprazole (Prevacid) 30 mg DAILY GTB Last administered on 12/24/16 08:39; Admin Dose 30 MG; Start 12/19/16 at 09:00 Losartan Potassium (Cozaar) 100 mg DAILY GTB Last administered on 12/24/16 08: 38; Admin Dose 100 MG; Start 12/19/16 at 09:00 Magnesium Hydroxide (Milk Of Mag) 30 ml DAILY GTB Last administered on 08:37; Admin Dose 30 ML; Start 12/19/16 at 09:00 Metoprolol Tartrate (Lopressor) 50 mg BID GTB Last administered on 12/24/16 08 :39; Admin Dose 50 MG; Start 12/19/16 at 09:00 Ondansetron HCl (Zofran Tab) 4 mg Q6H PRN GTB NAUSEA AND/OR VOMITING; Start at 23:00 Sodium Biphosphate/ Sodium Phosphate (Fleet Enema Pediatric) 66.6 ml Q3D PRN [place] CONSTIPATION; Start 12/18/16 at 23:00 Spironolactone (Aldactone) 25 mg BID GTB Last administered on 12/24/16 08:38; Admin Dose 25 MG; Start 12/19/16 at 09:00 Vancomycin HCl (Vancomycin Oral Syringe) 125 mg Q6 PO Last administered on 12/24 17:15; Admin Dose 125 MG; Start 12/19/16 at 00:00 Diltiazem HCl (Cardizem Sr) 60 mg TID PO Last administered on 12/24/16 12:17; Admin Dose 60 MG; Start 12/21/16 at 13:00 Tobramycin TOBRAMYCIN PER PHARMACY NOTE XX ; Start 12/21/16 at 13:00 Tobramycin/Sodium Chloride (Tobramycin/NS) 52 ml @ 104 mls/hr Q24H IVPB Last administered on 12/24/16 17:15; Admin Dose 104 MLS/HR; Start 12/21/16 at 18:00 Apixaban (Eliquis) 2.5 mg BID PO ; Start 12/24/16 at 21:00 MARY PAYNE MD Dec 24, 2016 20:24
[2016-12-24] MEDS: ATORVASTATIN 40 MG TAB GTB SCH (21:01)
[2016-12-24] MEDS: BISACODYL 10 MG SUPP PR SCH (23:18)
[2016-12-25] VITALS (18 sets, daily range): BP systolic 132–160; BP diastolic 64–77; PULSE 55–157; RESP 13–20
[2016-12-25] MEDS: VANCOMYCIN HCL 250 MG/5ML POSYG PO SCH ×3 (01:07→13:02)
[2016-12-25] MEDS: LABETALOL 100 MG TAB GTB SCH ×3 (04:52→17:00)
[2016-12-25] MEDS: CALCIUM CARBONATE 1.25 GM TAB GTB SCH (05:22)
[2016-12-25] MEDS: FUROSEMIDE 40 MG TAB GTB SCH (05:23)
[2016-12-25] MEDS: LEVOTHYROXINE 150 MCG TAB GTB SCH (06:45)
[2016-12-25] MEDS: APIXABAN 5 MG TABLET PO SCH (08:57)
[2016-12-25] MEDS: DILTIAZEM (SR) 60 MG CAP PO SCH ×3 (08:57→13:10)
[2016-12-25] MEDS: LANSOPRAZOLE 30 MG CAP GTB SCH (08:57)
[2016-12-25] MEDS: LOSARTAN 50 MG TAB GTB SCH (08:58)
[2016-12-25] MEDS: METOPROLOL 50 MG TAB GTB SCH (08:58)
[2016-12-25] MEDS: MAGNESIUM HYDROXIDE 30ML CUP GTB SCH (09:00)
[2016-12-25] MEDS: SPIRONOLACTONE 25 MG TAB GTB SCH (09:01)
[2016-12-25] MEDS: ACETAMINOPHEN 650MG/20.3ML CUP GTB PRN (09:01)
[2016-12-25] MEDS: CHLORHEXIDINE GLUCONATE 15 ML UD CUP MM SCH (10:43)
--- NOTE | 2016-12-25 10:52 | CONS ---
Date/Time of Note Date/Time of Note DATE: 12/25/16 TIME: 10:50 Assessment/Plan Assessment/Plan Additional Assessment/Plan Ventilator settings; AC of 12, tidal volume 500, PEEP of 5, 30% FiO2. Assessment recommendations; 1. Patient admitted for anemia status post blood transfusion with stable hematocrit now no overt bleeding. 2. Chronic respiratory failure, patient ventilator dependent. 3. History of atrial fibrillation. 4. History of hypothyroidism. 5. History of hypertension. Continue current treatment. Patient will transfer to long term. Consultation Date/Type/Reason Admit Date/Time Dec 18, 2016 at 16:05 Initial Consult Date 12/19/16 Type of Consultation: pulmonary Referring Provider: NIRMALA TAVAREZ DO 24 HR Interval Summary Free Text/Dictation Patient condition remains stable. Has remained hemodynamically stable. Remains awake alert but does not follow any commands. This is on account of underlying anoxic brain injury. General exam; elderly woman, on ventilator via tracheostomy currently in no distress. Exam/Review of Systems Vital Signs Vitals Vital Signs Date Time Temp Pulse Resp B/P Pulse Ox O2 Delivery O2 Flow Rate FiO2 12/25/16 08:24 65 12/25/16 07:42 98.5 19 137/64 96 12/25/16 05:15 35 12/21/16 13:12 Trach Collar Intake and Output 12/24/16 12/24/16 12/25/16 15:00 23:00 07:00 Intake Total 800 ml 700 ml Output Total 700 ml 700 ml Balance 100 ml 0 ml Exam HEENT examination; supple neck, no JVD. No lymphadenopathy. Midline trachea. No thyromegaly. Tracheostomy in place. Insertion site is clean. Chest examination; clear to auscultation bilaterally. S1-S2 audible, no murmurs. Irregular rhythm. Abdomen examination; soft, nondistended. No organomegaly. G-tube in place. Bowel sounds audible. Extremity exam is; no peripheral edema. TUNNEL KILN REPAIRER examination; patient is awake but does not follow any commands. Moves upper extremities spontaneously. Results Result Diagram: 12/24/16 0638 12/24/16 0630 Medications Medications Current Medications Acetaminophen (Tylenol Liquid) 650 mg Q6H PRN GTB MILD DISCOMFORT Last administered on 12/25/16t 09:01; Admin Dose 650 MG; Start 12/18/16 at 23:00 Atorvastatin Calcium (Lipitor) 40 mg QHS GTB Last administered on 12/24/16 21: 01; Admin Dose 40 MG; Start 12/19/16 at 21:00 Bisacodyl (Dulcolax Supp) 10 mg Q2D [place] Last administered on 12/24/16 23:18; Admin Dose 10 MG; Start 12/18/16 at 23:00 Chlorhexidine Gluconate (Peridex) 15 ml Q12H MM Last administered on 12/25/16 10:43; Admin Dose 15 ML; Start 12/18/16 at 23:00 Labetalol HCl (Normodyne) 50 mg Q6H GTB Last administered on 12/25/16 04:52; Admin Dose 50 MG; Start 12/18/16 at 23:00 Lansoprazole (Prevacid) 30 mg DAILY GTB Last administered on 12/25/16 08:57; Admin Dose 30 MG; Start 12/19/16 at 09:00 Losartan Potassium (Cozaar) 100 mg DAILY GTB Last administered on 12/25/16 08: 58; Admin Dose 100 MG; Start 12/19/16 at 09:00 Magnesium Hydroxide (Milk Of Mag) 30 ml DAILY GTB Last administered on 09:00; Admin Dose 30 ML; Start 12/19/16 at 09:00 Metoprolol Tartrate (Lopressor) 50 mg BID GTB Last administered on 12/25/16 08 :58; Admin Dose 50 MG; Start 12/19/16 at 09:00 Ondansetron HCl (Zofran Tab) 4 mg Q6H PRN GTB NAUSEA AND/OR VOMITING; Start at 23:00 Sodium Biphosphate/ Sodium Phosphate (Fleet Enema Pediatric) 66.6 ml Q3D PRN [place] CONSTIPATION; Start 12/18/16 at 23:00 Spironolactone (Aldactone) 25 mg BID GTB Last administered on 12/25/16 09:01; Admin Dose 25 MG; Start 12/19/16 at 09:00 Vancomycin HCl (Vancomycin Oral Syringe) 125 mg Q6 PO Last administered on 12/25 05:23; Admin Dose 125 MG; Start 12/19/16 at 00:00 Diltiazem HCl (Cardizem Sr) 60 mg TID PO Last administered on 12/25/16 08:57; Admin Dose 60 MG; Start 12/21/16 at 13:00 Tobramycin TOBRAMYCIN PER PHARMACY NOTE XX ; Start 12/21/16 at 13:00 Tobramycin/Sodium Chloride (Tobramycin/NS) 52 ml @ 104 mls/hr Q24H IVPB Last administered on 12/24/16 17:15; Admin Dose 104 MLS/HR; Start 12/21/16 at 18:00 Apixaban (Eliquis) 2.5 mg BID PO Last administered on 12/25/16 08:57; Admin Dose 2.5 MG; Start 12/24/16 at 21:00 NICOLAS VASQUEZ Dec 25, 2016 10:52
--- NOTE | 2016-12-25 12:37 | PN ---
DATE: 12/25/2016 SUBJECTIVE: The patient's discharge yesterday was held. The patient will be anticipating possible discharge today. No other acute events noted. No hemoptysis, hematemesis, or hematochezia. The radha lazaro overnight did have an episode where her G-tube was clogged; however, that has resolved with fl ushing. No other acute events noted. OBJECTIVE: VITAL SIGNS: Blood pressure is 137/64, respirations 19, pulse 88, temperature 98.5. HEENT: Head is normocephalic. NECK: Supple. HEART: Regular rate. LUNGS: Show diminished breath sounds at the base. ABDOMEN: Soft, nontender to palpation. No rebound or guarding. EXTREMITIES: Negative for clubbing, cyanosis, no edema. DERMATOLOGIC: No rashes. MUSCULOSKELETAL: No joint effusions. NEUROLOGIC: No change in exam. MEDICATIONS: The patient's medications have been reviewed. LABORATORY DATA: Has been reviewed. No new labs this morning. ASSESSMENT AND PLAN: 1. Acute lower gastrointestinal bleed, etiology ____ in nature. The patient's hemoglobin levels rogers ve been stable. The patient is status post blood transfusion. No further bleeding. This patient w as reinitiated on anticoagulation. 2. Atrial fibrillation, rate controlled. The patient is currently back on Eliquis. Continue curre nt medical management. 3. Sepsis secondary to urinary tract infection, Clostridium difficile colitis. The patient is clin ically improving. Continue current antibiotic regimen. 4. Ventilatory dependent respiratory failure. Vent settings have been reviewed. ABGs have been re viewed. Continue to monitor. 5. Dysphagia status post percutaneous endoscopic gastrostomy. Continue tube feeding. 6. Acute systolic, diastolic heart failure. The patient is currently decompensated, but improving. Continue medical management. 7. Acute on chronic encephalopathy. Etiology is toxic metabolic. The patient's mental status is b ack to baseline. 8. Anemia secondary to gastrointestinal bleed. Hemoglobin has been stable. Monitor closely on ant icoagulation. 9. History of cerebrovascular accident. 10. Hypertension. Continue current blood pressure regimen. 11. Hypothyroidism. Continue Synthroid. 12. Shingles status post Valtrex. 12. Gastrointestinal and deep venous thrombosis prophylaxis. Continue PPI and sequential leg squee zers. Dictated By: NIRMALA RODRIGUEZ/NTS Conf#: [id number] [facility]#: [id number]
--- NOTE | 2016-12-25 16:24 | PN ---
DATE: 12/25/2016 CARDIOLOGY FOLLOWUP SUBJECTIVE: Discussed with the staff. Rhythm strip was reviewed. The patient remains in atrial fi brillation. Heart rate remains stable. No reported chest pain ____. The patient remains on the ve nt. No bleeding reported. MEDICATIONS: Reviewed as per medication reconciliation, personally reviewed. PHYSICAL EXAMINATION: VITAL SIGNS: Temperature 97.6, heart rate of 58, blood pressure 160/67, respiration rate of 18, sat urating 96%. HEENT: Normocephalic, atraumatic. Obese female. Pupils are equal and round. NECK: Supple, tracheostomy, on the vent. CARDIOVASCULAR: Irregularly irregular, systolic murmur. PULMONARY: Anteriorly with no wheezes, minimal rhonchi at the base. GASTROINTESTINAL: Obese, soft, nontender. EXTREMITIES: Positive trivial edema. NEUROLOGIC: Awake, responds appropriately. PSYCHIATRIC: ____ calm. ____ multiple ecchymoses. ASSESSMENT: 1. Hypoxemic respiratory failure, status post tracheostomy, ventilator dependent. 2. Atrial fibrillation. 3. Gastrointestinal bleed and anemia, currently improved. 4. Status post sepsis. 5. Fluid overload and congestive heart failure, currently stable. 6. Thyroid disorder. 7. Hypertension. 8. Renal insufficiency. RECOMMENDATIONS: We will continue with the low dose of Eliquis 2.5 b.i.d. The patient is currently off of digoxin. Will continue to monitor. Vent support and respiratory care will be continued. Dictated By: LETICIA SHAW/TONIO Conf#: [id number] DID#: [id number]
--- NOTE | 2016-12-25 22:20 | CONS ---
Date/Time of Note Date/Time of Note DATE: 12/25/16 TIME: 15:20 Assessment/Plan Assessment/Plan Chief Complaint/Hosp Course Anemia- n- cytic with increased rdw no evidence of B12 deficiency Will continue to monitor. POST EGD and colonoscopy.- Gastritis and Hemorrhoids POST Acute lower gastrointestinal bleed. The patient is status post blood transfusion. Hemoglobin levels remain stable. POST EGD and colonoscopy - Gastritis and Hemorrhoids Atrial fibrillation, currently rate controlled. Continue the current medical management and follow up with cardiology. Anticoagulation is being held at this time. Sepsis secondary to a recent urinary tract infection and Clostridium difficile colitis. The patient's repeat stool for C. diff was negative. The patient remains on oral vancomycin. Follow up with infectious disease. Ventilatory-dependent respiratory failure. Dysphagia. Status post PEG. Continue tube feeding. Acute systolic and diastolic heart failure. The patient is currently decompensated. Continue medical management. Continue diuretic therapy. Acute on chronic encephalopathy. Etiology is toxic metabolic. The patient's mental status appears to be improving. Continue to monitor. History of cerebrovascular accident. Continue medical management. Hypertension. Continue current blood pressure regimen. Hypothyroidism. The patient's CCH remains elevated. Will increase Synthroid to 150 mcg daily. Renal insufficiency. Improved. Continue supportive care. Mild hyperkalemia. Resolved. Shingles. The patient is status post Valtrex. Gastrointestinal and deep venous thrombosis prophylaxis. Continue proton pump inhibitor and sequential leg squeezers. Problems: Consultation Date/Type/Reason Admit Date/Time Dec 18, 2016 at 16:05 Initial Consult Date 12/19/16 Type of Consultation: [facility] Referring Provider: NIRMALA TAVAREZ DO 24 HR Interval Summary Free Text/Dictation The patient's discharge yesterday was held. The patient will be anticipating possible discharge today. No other acute events noted. No hemoptysis, hematemesis, or hematochezia. The patient overnight did have an episode where her G-tube was clogged; however, that has resolved with flushing. No other acute events noted. Exam/Review of Systems Vital Signs Vitals Vital Signs Date Time Temp Pulse Resp B/P Pulse Ox O2 Delivery O2 Flow Rate FiO2 12/25/16 16:19 55 12/25/16 15:58 97.8 18 132/64 96 12/25/16 15:03 35 12/21/16 13:12 Trach Collar Intake and Output 12/24/16 12/24/16 12/25/16 15:00 23:00 07:00 Intake Total 800 ml 700 ml Output Total 700 ml 700 ml Balance 100 ml 0 ml Exam OBJECTIVE: HEENT: Head is normocephalic. NECK: Supple. HEART: Regular rate. LUNGS: Show diminished breath sounds at the base. ABDOMEN: Soft, nontender to palpation. No rebound or guarding. EXTREMITIES: Negative for clubbing, cyanosis, no edema. DERMATOLOGIC: No rashes. MUSCULOSKELETAL: No joint effusions. NEUROLOGIC: No change in exam. Results Result Diagram: 12/24/16 0638 12/24/16 0630 DANELLE LEHMAN MD Dec 25, 2016 22:20
--- NOTE | 2016-12-25 23:12 | CONS ---
Date/Time of Note Date/Time of Note DATE: 12/25/16 TIME: 23:11 Assessment/Plan Assessment/Plan Additional Assessment/Plan IMPRESSION: 1. Gastritis and Hemorrhoids 2. Clostridium difficile colitis. The patient is on vancomycin. 3. Shingles. 4. Ventilator-dependent respiratory failure. 5. Chronic atrial fibrillation. 6. Cerebrovascular accident. 7. Encephalopathy. 8. Pneumonia. 9. Hypertension. 10. Hypothyroidism. 11. Anemia Plan continue present care ok to start on blood thinner and monitor for bleeding We will monitor H&H Consultation Date/Type/Reason Admit Date/Time Dec 18, 2016 at 16:05 Initial Consult Date 12/19/16 Type of Consultation: pulmonary Referring Provider: NIRMALA TAVAREZ DO 24 HR Interval Summary Subjective hx not possible: pt non-verbal Constitutional: no complaints Exam/Review of Systems Vital Signs Vitals Vital Signs Date Time Temp Pulse Resp B/P Pulse Ox O2 Delivery O2 Flow Rate FiO2 12/25/16 16:19 55 12/25/16 15:58 97.8 18 132/64 96 12/25/16 15:03 35 12/21/16 13:12 Trach Collar Intake and Output 12/24/16 12/24/16 12/25/16 15:00 23:00 07:00 Intake Total 800 ml 700 ml Output Total 700 ml 700 ml Balance 100 ml 0 ml Exam Constitutional: alert, oriented, well developed Psych: nl mood/affect, no complaints Head: atraumatic, normocephalic Eyes: EOMI, PERRL, nl conjunctiva, nl lids, nl sclera ENMT: nl external ears & nose, nl lips & teeth, nl nasal mucosa & septum Neck: non-tender, supple Respiratory: clear to auscultation, normal air movement Cardiovascular: nl pulses, regular rate and rhythm Gastrointestinal: nl liver, spleen, non-tender, soft Musculoskeletal: nl extremities to inspection, nl gait and stance Extremities: normal pulses Neurological: GAS TORCH BRAZIER II-XII intact, nl mental status, nl speech, nl strength Skin: nl turgor, No rash or lesions Lymph: nl lymph nodes Results Result Diagram: 12/24/16 0638 12/24/16 0630 MARY PAYNE MD Dec 25, 2016 23:12
== END 2016-12-25 17:15 | DRG 870 ==
LOC: E/R 13:53 → TEL 16:05
PROVIDERS: ADMIT Internal Medicine; ATTEND Internal Medicine
PROC: 30233N1 Transfusion of Nonautologous Red Blood Cells into Peripheral Vein, Percutaneous Approach (ICD-10-PCS; 2016-12-18)
PROC: 5A1955Z Respiratory Ventilation, Greater than 96 Consecutive Hours (ICD-10-PCS; 2016-12-20)
PROC: 0DJD8ZZ Inspection of Lower Intestinal Tract, Via Natural or Artificial Opening Endoscopic (ICD-10-PCS; 2016-12-21)
PROC: 0DB68ZX Excision of Stomach, Via Natural or Artificial Opening Endoscopic, Diagnostic (ICD-10-PCS; principal; 2016-12-21 12:30)
DX: A41.9 Sepsis, unspecified organism (principal); G92 Toxic encephalopathy; I50.43 Acute on chronic combined systolic (congestive) and diastolic (congestive) heart failure; Z99.11 Dependence on respirator [ventilator] status; J18.9 Pneumonia, unspecified organism; J96.10 Chronic respiratory failure, unspecified whether with hypoxia or hypercapnia; G93.1 Anoxic brain damage, not elsewhere classified; A04.7 Enterocolitis due to Clostridium difficile; K92.2 Gastrointestinal hemorrhage, unspecified; D62 Acute posthemorrhagic anemia; N39.0 Urinary tract infection, site not specified; E87.1 Hypo-osmolality and hyponatremia; B37.49 Other urogenital candidiasis; B96.5 Pseudomonas (aeruginosa) (mallei) (pseudomallei) as the cause of diseases classified elsewhere; R13.10 Dysphagia, unspecified; B02.9 Zoster without complications; Z86.73 Personal history of transient ischemic attack (TIA), and cerebral infarction without residual deficits; Z93.0 Tracheostomy status; E87.5 Hyperkalemia; K29.70 Gastritis, unspecified, without bleeding; K44.9 Diaphragmatic hernia without obstruction or gangrene; K64.9 Unspecified hemorrhoids
CPT/HCPCS: 36415; 36430; 36600; 71010; 80048; 80053; 80162; 80200; 81001; 81003; 82043; 82270; 82306; 82378; 82607; 82668; 82728; 82746; 82803; 83540; 83605; 83615; 83735; 83880; 84100; 84145; 84155; 84165; 84300; 84439; 84443; 84560; 85025; 85045; 85610; 85651; 85730; 86850; 86900; 86901; 86920; 87040; 87075; 87086; 88305; 88312; 93005; 94002; 94003; J2001; J2185; J3260; P9016

== ENCOUNTER 2017-01-05 11:08 | Emergency (ER) | payer MEDICARE, OTHER ==
[~2017-01-05] VITALS: Ht 165.1 cm; Wt 100.0 kg
[~2017-01-05 11:08] MED LIST: ACET-2047 GTB; APIX5TAB GTB; ATOR40TA68 GTB; CALC500T79 GTB; CARSR60 PO; CHLO473M4 MM; DIGO125T19 GTB; DULR PR; FLEETPED PR; FURO40TA4 GTB; LABE100T3 GTB; LANS30CA GTB; LEVO125T75 GTB; LOSA100T7 GTB; MAGN400O4 GTB; METO-429 GTB; ONDA-43 GTB; SPIR25TA GTB
[2017-01-05 11:27] VITALS: Ht 165.1 cm; Wt 100.0 kg
--- NOTE | 2017-01-05 11:54 | RADRPT ---
PROCEDURE: XR Abdomen. CLINICAL INDICATION: Abdominal pain. TECHNIQUE: AP abdomen x-ray. COMPARISON: None. FINDINGS: A gastrostomy tube is seen. Contrast is seen in the gastric lumen and small bowel. No evidence of extravasation of contrast is seen. Cholecystectomy clips are identified. There is no evidence of o bstruction. There are no abnormal calcifications overlying the urinary tracts. No osseous lesion is seen. IMPRESSION: Contrast in the gastric lumen and small bowel without evidence of extravasation indicating satisfact ory placement of a gastrostomy tube. RPTAT: HPNM Physician Paxton Date Time Electronically viewed and signed by Physician Paxton on 01/05/2017 11:54 /
--- NOTE | 2017-01-05 11:59 | ERD ---
ER Documentation Chief Complaint Date/Time DATE: 01/05/17 TIME: 11:57 Chief Complaint GT REPLACEMENT, VENT DEPENDENT HPI This 86-year-old female presents to the emergency room for evaluation of a G- tube replacement. Her gastric tube came out last night. She did have a Lazar catheter in place. Nursing staff is unsure of what size a gastric tube is. ROS All systems reviewed and are negative except as per history of present illness. Medications Home Meds Reported Medications Lansoprazole* (Lansoprazole*) 30 Mg Capsule.dr, 30 MG GTB DAILY, CAP 12/18/16 Chlorhexidine Gluconate (Peridex) 473 Ml Mouthwash, 15 ML MM Q12H, BOTTLE 12/18/16 Acetaminophen* (Acetaminophen*) 650 Mg Tablet, 650 MG GTB Q6H Y for MILD DISCOMFORT, #30 TAB 12/18/16 Bisacodyl* (Bisacodyl*) 10 Mg Supp, 10 MG HI Q2D, SUPP 12/18/16 Sod Phosphate/Sod Biphosphate* (Fleet* Enema Pediatric) 66.6 Ml Soln, 66.6 ML HI Q3D Y for CONSTIPATION, ENEMA 12/18/16 Labetalol Hcl* (Labetalol Hcl*) 100 Mg Tablet, 50 MG GTB Q6H, TAB 12/18/16 Metoprolol Tartrate* (Lopressor*) 50 Mg Tab, 50 MG GTB BID, #60 TAB 12/18/16 Magnesium Hydroxide* (Milk Of Magnesia*) 400 Mg/5 Ml Oral.susp, 30 ML GTB DAILY , ML 12/18/16 Losartan Potassium* (Losartan Potassium*) 100 Mg Tablet, 100 MG GTB DAILY, TAB 12/18/16 Levothyroxine Sodium* (Levothyroxine Sodium*) 125 Mcg Tablet, 125 MCG GTB BEFORE BREAKFAST, #30 TAB 12/18/16 Furosemide* (Furosemide*) 40 Mg Tablet, 40 MG GTB BID, TAB 12/18/16 Diltiazem Hcl* (Cardizem SR*) 60 Mg Capsr, 60 MG PO BID, #60 CAP 12/18/16 Digoxin* (Digox*) 125 Mcg Tablet, 0.125 MG GTB Q48H, TAB 12/18/16 Calcium Carbonate (NATURAL CALCIUM) 500 Mg Tablet, 500 MG GTB Q24, TAB 12/18/16 Atorvastatin* (Atorvastatin*) 40 Mg Tablet, 40 MG GTB QHS, #30 TAB 12/18/16 Apixaban* (Eliquis*) 5 Mg Tablet, 5 MG GTB BID, TAB 12/18/16 Ondansetron Hcl* (Zofran*) 4 Mg Tab, 4 MG GTB Q6H Y for NAUSEA AND OR VOMITING, TAB 12/18/16 Spironolactone* (Aldactone*) 25 Mg Tablet, 25 MG GTB BID, #60 TAB 12/18/16 Allergies Allergies: Coded Allergies: lovastatin (Verified Allergy, Unknown, 12/18/16) midazolam (Verified Allergy, Unknown, 12/18/16) zolpidem (Verified Allergy, Unknown, 12/18/16) PMhx/Soc History of Surgery: Yes (right total KA) Anesthesia Reaction: No Hx Neurological Disorder: No Hx Respiratory Disorders: Yes (TRACHE TO VENT ,RESP FAILURE) Hx Cardiac Disorders: Yes (HTN CVA) Hx Psychiatric Problems: No Hx Alcohol Use: No Hx Substance Use: No Hx Tobacco Use: No Smoking Status: Never smoker Physical Exam Vitals Vital Signs Date Time Temp Pulse Resp B/P Pulse Ox O2 Delivery O2 Flow Rate FiO2 01/05/17 11:27 97.8 87 18 160/78 99 Physical Exam Const: No acute distress, vent dependent Head: Atraumatic Eyes: Normal Conjunctiva ENT: Tracheostomy placed, normal External Ears, Nose and Mouth. Neck: Full range of motion..~ No meningismus. Resp: Clear to auscultation bilaterally Cardio: Regular rate and rhythm, no murmurs Abd: Ostomy with Lazar in the soft tissue, soft, non tender, non distended. Normal bowel sounds Skin: No petechiae or rashes Back: No midline or flank tenderness Ext: No cyanosis, or edema Neur: Awake and alert Psych: Normal Mood and Affect Procedures/MDM G-tube Insertion by me: Sterile technique, local prep and lubrication, time out performed. Location: Epigastrum Device: 16 [place] G-tube Technique: Manoj pressure with twisting motion. Balloon inflation Results: Gastric contents expressed. Compl: none X-ray Abdomen 1V Interpreted by me: Free Air: None Bowel Gas: Nonspecific Contrast: Intraluminal This patient presents to the emergency room for PEG tube replacement. I placed a 16 [place] PEG tube in this patient without difficulty. Post placement x-ray does not reveal any extraluminal contrast. This patient will be discharged back into the care of the nursing facility at this time. Departure Diagnosis: Primary Impression: PEG tube malfunction Additional Impression: Encounter for gastrojejunal tube placement Condition: Stable BUTCH FRANCES DO Jan 05, 2017 11:59
[2017-01-05 12:04] VITALS: BP 161/78; PULSE 80; RESP 20
== END 2017-01-05 12:08 | disposition home or self-care (01) ==
LOC: E/R 11:08
DX: K94.23 Gastrostomy malfunction (principal); R40.2132 Coma scale, eyes open, to sound, at arrival to emergency department; I10 Essential (primary) hypertension; E03.9 Hypothyroidism, unspecified; I50.9 Heart failure, unspecified; R40.2242 Coma scale, best verbal response, confused conversation, at arrival to emergency department; R40.2362 Coma scale, best motor response, obeys commands, at arrival to emergency department; Z79.01 Long term (current) use of anticoagulants
CPT/HCPCS: 74000

== ENCOUNTER 2017-04-13 22:13 | Inpatient (IN) | payer MEDICARE, OTHER ==
[~2017-04-13] VITALS: Ht 152.4 cm; Wt 66.0 kg
[~2017-04-13 22:13] MED LIST changes: +BISA10SU75 PR; -DULR PR
--- NOTE | 2017-04-13 22:44 | ERA ---
ER Documentation Chief Complaint Date/Time DATE: 04/13/17 TIME: 22:43 Chief Complaint sent from facility for blood in stool HPI 87-year-old woman [facility] by [facility] for bright red blood found in her stool and in her diaper. She does have a history of gastrointestinal bleeding. She has had no vomiting or diarrhea and no respiratory difficulty although HPI is limited as patient is nonverbal. HPI supplemented by reviewing past medical history, [facility] records, speaking to EMS, and nursing staff. ROS All systems reviewed and are negative except as per history of present illness. Medications Home Meds Reported Medications Lansoprazole* (Lansoprazole*) 30 Mg Capsule.dr, 30 MG GTB DAILY, CAP 12/18/16 Chlorhexidine Gluconate (Peridex) 473 Ml Mouthwash, 15 ML MM Q12H, BOTTLE 12/18/16 Acetaminophen* (Acetaminophen*) 650 Mg Tablet, 650 MG GTB Q6H Y for MILD DISCOMFORT, #30 TAB 12/18/16 Bisacodyl* (Bisacodyl*) 10 Mg Supp, 10 MG VA Q2D, SUPP 12/18/16 Sod Phosphate/Sod Biphosphate* (Fleet* Enema Pediatric) 66.6 Ml Soln, 66.6 ML VA Q3D Y for CONSTIPATION, ENEMA 12/18/16 Labetalol Hcl* (Labetalol Hcl*) 100 Mg Tablet, 50 MG GTB Q6H, TAB 12/18/16 Metoprolol Tartrate* (Lopressor*) 50 Mg Tab, 50 MG GTB BID, #60 TAB 12/18/16 Magnesium Hydroxide* (Milk Of Magnesia*) 400 Mg/5 Ml Oral.susp, 30 ML GTB DAILY , ML 12/18/16 Losartan Potassium* (Losartan Potassium*) 100 Mg Tablet, 100 MG GTB DAILY, TAB 12/18/16 Levothyroxine Sodium* (Levothyroxine Sodium*) 125 Mcg Tablet, 125 MCG GTB BEFORE BREAKFAST, #30 TAB 12/18/16 Furosemide* (Furosemide*) 40 Mg Tablet, 40 MG GTB BID, TAB 12/18/16 Diltiazem Hcl* (Cardizem SR*) 60 Mg Capsr, 60 MG PO BID, #60 CAP 12/18/16 Digoxin* (Digox*) 125 Mcg Tablet, 0.125 MG GTB Q48H, TAB 12/18/16 Calcium Carbonate (NATURAL CALCIUM) 500 Mg Tablet, 500 MG GTB Q24, TAB 12/18/16 Atorvastatin* (Atorvastatin*) 40 Mg Tablet, 40 MG GTB QHS, #30 TAB 12/18/16 Apixaban* (Eliquis*) 5 Mg Tablet, 5 MG GTB BID, TAB 12/18/16 Ondansetron Hcl* (Zofran*) 4 Mg Tab, 4 MG GTB Q6H Y for NAUSEA AND OR VOMITING, TAB 12/18/16 Spironolactone* (Aldactone*) 25 Mg Tablet, 25 MG GTB BID, #60 TAB 12/18/16 Allergies Allergies: Coded Allergies: lovastatin (Verified Allergy, Unknown, 12/18/16) midazolam (Verified Allergy, Unknown, 12/18/16) zolpidem (Verified Allergy, Unknown, 12/18/16) PMhx/Soc Previous lower gastrointestinal bleeding, ventilator dependent respiratory failure with tracheostomy, stroke, chronic encephalopathy, hypertension, hypothyroidism, atrial fibrillation, dysphagia status post PEG tube placement, congestive heart failure History of Surgery: Yes (right total KA) Anesthesia Reaction: No Hx Neurological Disorder: Yes (CVA) Hx Respiratory Disorders: Yes (TRACHE TO VENT ,RESP FAILURE) Hx Cardiac Disorders: Yes (HTN, CHF, A-FIB) Hx Psychiatric Problems: No Hx Alcohol Use: No Hx Substance Use: No Hx Tobacco Use: No Smoking Status: Unknown if ever smoked FmHx Family History: No diabetes Physical Exam Vitals Vital Signs Date Time Temp Pulse Resp B/P Pulse Ox O2 Delivery O2 Flow Rate FiO2 04/14/17 01:55 75 24 98 40 04/14/17 01:30 98.9 74 23 187/71 100 Mechanical Ventilator 04/14/17 00:43 70 21 168/90 99 Mechanical Ventilator 04/14/17 00:30 71 23 99 40 04/13/17 23:20 71 16 173/71 100 Mechanical Ventilator 04/13/17 22:33 100.9 74 12 116/93 100 04/13/17 22:25 65 16 98 40 Physical Exam GENERAL: Well-developed, elderly, chronically debilitated woman, febrile, with a tracheostomy HEENT: Moist mucous membranes, pink conjunctiva, tracheostomy tube in place, no goiter NEURO: Alert and oriented 1, eyes open, responsive to painful stimuli, pupils equal round reactive to light, nonverbal CARDIAC: Irregular rate, no murmurs rubs or gallops LUNGS: Clear bilaterally no wheezing crackles or stridor ABDOMEN: Soft nontender, no guarding, no rigidity, no rebound, no psoas sign no obturator sign. SKIN: Warm and dry to touch, no abrasions, contusions, or hematomas, no lacerations, no ecchymosis, no target lesions, and without ulcers EXTREMITIES: No clubbing cyanosis or edema, calves are bilaterally symmetrical, no Homans sign, no popliteal cord sign. Distal pulses equal and bilateral PSYCH: Unable to assess Result Diagram: 04/13/17 2330 04/13/17 2330 Results 24 hrs Laboratory Tests Test 04/13/17 23:30 04/14/17 00:00 White Blood Count 7.410^3/ul Red Blood Count 3.9010^6/ul Hemoglobin 11.4g/dl Hematocrit 36.1% Mean Corpuscular Volume 92.6fl Mean Corpuscular Hemoglobin 29.2pg Mean Corpuscular Hemoglobin Concent 31.6g/dl Red Cell Distribution Width 18.5% Platelet Count 29147^3/UL Mean Platelet Volume 11.5fl Neutrophils % 74.9% Lymphocytes % 12.8% Monocytes % 8.4% Eosinophils % 3.1% Basophils % 0.5% Nucleated Red Blood Cells % 0.0/100WBC Neutrophils # 5.510^3/ul Lymphocytes # 0.910^3/ul Monocytes # 0.610^3/ul Eosinophils # 0.210^3/ul Basophils # 0.010^3/ul Nucleated Red Blood Cells # 0.010^3/ul Prothrombin Time 16.3Sec Prothrombin Time Ratio 1.3 INR International Normalized Ratio 1.30 Activated Partial Thromboplast Time 29.1Sec Sodium Level 139mmol/L Potassium Level 3.7mmol/L Chloride Level 94mmol/L Carbon Dioxide Level 32mmol/L Anion Gap 17 Blood Urea Nitrogen 26mg/dl Creatinine 0.68mg/dl Glucose Level 114mg/dl Lactic Acid Level 1.8mmol/L Calcium Level 9.0mg/dl Total Bilirubin 0.7mg/dl Direct Bilirubin 0.00mg/dl Indirect Bilirubin 0.7mg/dl Aspartate Amino Transf (AST/SGOT) 25IU/L Alanine Aminotransferase (ALT/SGPT) 23IU/L Alkaline Phosphatase 93IU/L Troponin I 0.276ng/ml Total Protein 8.2g/dl Albumin 3.8g/dl Globulin 4.40g/dl Albumin/Globulin Ratio 0.86 Lipase 43U/L Urine Color ADY Urine Clarity CLOUDY Urine pH 7.0 Urine Specific Hiland 1.012 Urine Ketones NEGATIVEmg/dL Urine Nitrite NEGATIVEmg/dL Urine Bilirubin NEGATIVEmg/dL Urine Urobilinogen 1+mg/dL Urine Leukocyte Esterase 3+Yojana/ul Urine Microscopic RBC 13/HPF Urine Microscopic WBC 103/HPF Urine Squamous Epithelial Cells FEW/HPF Urine Amorphous Crystals FEW/HPF Urine Bacteria MANY/HPF Urine Hemoglobin NEGATIVEmg/dL Urine Glucose NEGATIVEmg/dL Urine Total Protein NEGATIVEmg/dl Current Medications Medications (Trade) Dose Ordered Sig/Sara Route PRN Reason Start Time Stop Time Status Last Admin Dose Admin Sodium Chloride 2000 ml 2,000 ml BOLUS OVER 2 HOURS STAT IV* 04/13/17 22:46 04/13/17 22:49 DC 04/13/17 23:33 Cefepime HCl 50 ml @ 100 mls/hr ONCE ONCE IVPB 04/13/17 23:00 04/13/17 23:29 DC 04/13/17 23:37 Vancomycin HCl (Vancocin) 250 ml @ 125 mls/hr ONCE IVPB 04/13/17 23:00 04/14/17 00:59 DC 04/13/17 23:53 Acetaminophen (Tylenol Supp) 650 mg ONCE ONCE VA 04/13/17 23:00 04/13/17 23:01 DC 04/13/17 23:53 Procedures/MDM IV line was established patient was placed on monitor technician rhythm strip revealed a narrow complex irregular rhythm at about 80 bpm. Patient was febrile. Blood and urine cultures were ordered, stool culture ordered, C. difficile toxin assay ordered. Results are pending I will follow-up. EKG performed, read by me revealed an atrial fibrillation rate controlled a 75 bpm, normal axis, right ventricular conduction delay with a QRS duration of 100 ms, no concerning ST elevations or depressions noted. Chest X-ray 1V Interpreted by me: Reveals atelectatic changes bilaterally, cardiomegaly, tracheostomy in place, no acute infiltrates, no pneumothorax. I administered 2 L normal saline intravenously for early sepsis, just shy of 30 cc/kg due to her past medical history of congestive heart failure. Patient received acetaminophen 650 mg per rectum for fever, cefepime 1 g IV and vancomycin 1 g IV. CBC was unremarkable, electrolytes revealed dehydration with a BUN/creatinine of 26/0.7, liver function tests normal, troponin positive at 0.28. Lactic acid level 1.8. Urine analysis was positive for infection. Patient's infectious symptoms have not stabilized and the patient is at risk of rapid decompensation. The patient will be admitted for careful hydration, antibiotic therapy, and infectious source control. Severe Sepsis Assessment: Infectious Source: Pyelonephritis No evidence of endorgan damage Severe Sepsis Managment: Blood Cultures X 2 before broad spectrum antibiotics initiated within 3 hours of recognition. 30 ml/kg NS bolus Completed Initial Lactate: Low Repeat Lactate not indicated as initial < 2.0 Critical Care: Time: 40 minutes, this was time separate from other billable procedures Treatments/Evaluations: Emergent fluid management, while maintaining close respiratory support. Immediate broad spectrum antibiotic therapy. Simultaneous assessment for possible sources in order to direct therapy. Consideration for invasive and chemical support to prevent respiratory or cardiac collapse. Septic Shock Assessment (1 hour post 30 ml/kg fluid bolus): Hypotension (SBP < 90 or 40 mmHg drop, MAP < 65): No Lactic acid > 4.0 No Perfusion Reassessment for Septic Shock: Temp 98.7F, pulse 80 bpm, respiratory rate 14 breaths per minute, oxygen saturation 98%, blood pressure 140/80 Heart Exam: Irregular rhythm rate controlled at 80 bpm Lung Exam: No Crackles Capillary Refill: Less than 2 second Peripheral Pulses: Radially present Skin: Hot and dry to touch, pink Hypotensive Treatment (not required for isolated lactic acid elevation): Comfort Care: No Central LIne: Not indicated Vasopressor started: Not indicated I considered further perfusion assessment with CVP measurement, SCVO2, bedside ultrasound volume assessment, passive leg raise, trial of further fluid bolus. And preceded with IV hydration, and broad-spectrum IV antibiotics Accepting Care Team: Current data and ongoing care discussed. Time: Time of admission Primary Provider: Dr. Avendano Consulting: Infectious disease Outstanding Data: none Departure Diagnosis: Primary Impression: Acute onset sepsis Additional Impressions: Acute respiratory failure Qualified Code: J96.01 - Acute respiratory failure with hypoxia and hypercapnia Lower gastrointestinal hemorrhage Urinary tract infection Qualified Code: N30.00 - Acute cystitis without hematuria Elevated troponin Dehydration Condition: Serious MINERVA SUMNER MD Apr 13, 2017 22:44
[2017-04-13] MEDS ORDERED: SODIUM CHLORIDE 0.9% 1L BAG IV* STA (22:46)
[2017-04-13] MEDS ORDERED: VANCOMYCIN 1 GM (PMX) 250 ML IVPB SCH (23:00)
[2017-04-13] MEDS ORDERED: ACETAMINOPHEN 650 MG SUPP PR ONE (23:00)
[2017-04-13] MEDS ORDERED: CEFEPIME 1GM/50 ML (PMX) 50 ML IVPB ONE (23:00)
[2017-04-14] VITALS (7 sets, daily range): BP systolic 186–206; BP diastolic 87–105; PULSE 97; RESP 18–22; TEMP 98.2; Ht 152.4 cm; Wt 66.0 kg
[2017-04-14 00:02] LABS: ADD SCAN DIFF NO
[2017-04-14 00:06] LABS: BASOPHILS % 0.5 % (0.0-2.0); EOSINOPHILS # 0.2 10^3/ul (0.0-0.5); EOSINOPHILS % 3.1 % (0.0-7.0); HEMATOCRIT 36.1 % (37.0-47.0); HEMOGLOBIN 11.4 g/dl (12.0-16.0); LYMPHOCYTES # 0.9 10^3/ul (0.8-2.9); LYMPHOCYTES % 12.8 % (15.0-51.0); MEAN CORPUSCULAR HEMOGLOBIN 29.2 pg (29.0-33.0); MEAN CORPUSCULAR HGB CONC 31.6 g/dl (32.0-37.0); MEAN CORPUSCULAR VOLUME 92.6 fl (82.0-101.0); MEAN PLATELET VOLUME 11.5 fl (7.4-10.4); MONOCYTE # 0.6 10^3/ul (0.3-0.9); MONOCYTES % 8.4 % (0.0-11.0); NEUTROPHIL # 5.5 10^3/ul (1.6-7.5); NEUTROPHILS % 74.9 % (39.0-77.0); PLATELET COUNT 195 10^3/UL (140-415); RED CELL DISTRIBUTION WIDTH 18.5 % (11.5-14.5); WHITE BLOOD COUNT 7.4 10^3/ul (4.8-10.8)
[2017-04-14 00:20] LABS: INR 1.3; PROTIME 16.3 Sec (12.2-14.2); PT RATIO 1.3
[2017-04-14 00:21] LABS: PARTIAL THROMBOPLASTIN TIME 29.1 Sec (25.0-35.0)
[2017-04-14 00:34] LABS: ALBUMIN 3.8 g/dl (3.3-4.9); ALBUMIN/GLOBULIN RATIO 0.86; BILIRUBIN,INDIRECT 0.7 mg/dl (0-1.1); BILIRUBIN,TOTAL 0.7 mg/dl (0.2-1.3); CREATININE 0.68 mg/dl (0.44-1.00); POTASSIUM 3.7 mmol/L (3.5-5.1); TOTAL PROTEIN 8.2 g/dl (6.1-8.1)
[2017-04-14 00:47] LABS: ADD UMIC YES; UR AMORPHOUS CRYSTAL FEW /HPF (NONE SEEN); UR ASCORBIC ACID 40 mg/dL (NEGATIVE); UR BACTERIA MANY /HPF (NONE SEEN); UR BILIRUBIN (Dip) NEGATIVE (NEGATIVE); UR BLOOD (Dip) NEGATIVE (NEGATIVE); UR CLARITY CLOUDY (CLEAR); UR COLOR AMBER (YELLOW); UR GLUCOSE (Dip) NEGATIVE (NEGATIVE); UR KETONES (Dip) NEGATIVE (NEGATIVE); UR LEUKOCYTE ESTERASE (Dip) 3+ Leu/ul (NEGATIVE); UR NITRITE (Dip) NEGATIVE (NEGATIVE); UR RBC 13 /HPF (0-5); UR SPECIFIC GRAVITY (Dip) 1.012 (1.003-1.030); UR SQUAMOUS EPITHELIAL CELL FEW /HPF (FEW); UR TOTAL PROTEIN (Dip) NEGATIVE (NEGATIVE); UR UROBILINOGEN (Dip) 1+ mg/dL (NEGATIVE)
[2017-04-14 00:48] LABS: TROPONIN-I 0.276 ng/ml (0.00-0.12)
--- NOTE | 2017-04-14 01:09 | RADRPT ---
PROCEDURE: Portable chest x-ray. CLINICAL INDICATION: Sepsis. TECHNIQUE: Portable AP view of the chest. COMPARISON: 12/18/2016. FINDINGS: There is a tracheostomy tube in place. There is vascular congestion and interstitial edema, slightly improved since the prior examination. The cardiac silhouette is enlarged. There are aortic calcifi cations. No pleural effusion is seen. There is no pneumothorax. IMPRESSION: 1. Vascular congestion and interstitial edema, slightly improved since the prior examination. 2. Enlarged cardiac silhouette and aortic atherosclerosis. RPTAT: HTAR .Jd Lacy MD, Date Time Electronically viewed and signed by .Jd Lacy MD, on 04/14/2017 01:09 .R/
--- NOTE | 2017-04-14 09:36 | HP ---
Date/Time of Note Date/Time of Note DATE: 04/14/17 TIME: 09:27 Assessment/Plan VTE Prophylaxis VTE Prophylaxis Intervention: SCD's VTE Contraindication Reason: bleeding Lines/Catheters Urinary Cath still in place: Yes Reason Cath still needed: skin wounds contaminated by urine Assessment/Plan Chief Complaint/Hosp Course 1. Acute lower gastrointestinal bleed. The patient's stools were noted to be guaiac positive at an outside facility, and she is anemic. Plan at this point is to type and cross, transfuse 2 units of PRBC. We will hold the patient's anticoagulation, Eliquis. We will place a GI consult with Dr. Rai for evaluation and monitor closely. 2. Sepsis secondary to urinary tract infectionWe will repeat urine culture and blood cultures. We will consider infectious disease consult for evaluation. 3. ho Shingles. The patient is status post Valtrex. 4. Ventilator dependent respiratory failure. The patient's vent settings have been reviewed. Please see pulmonary consult for evaluation. We will monitor closely. 5. Dysphagia status post PEG. The patient will be resumed on tube feeding. 6. Atrial fibrillation. The patient's rate is currently controlled. Continue metoprolol, diltiazem, and digoxin. We will hold anticoagulation in the setting of gastrointestinal bleed. We will follow up with cardiology. 7. Congestive heart failure. The patient is currently decompensated. Chest x- ray shows pulmonary congestion. We will follow up with cardiology for recommendations. 8. 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 Continue to monitor. 9. History of cerebrovascular accident. Continue medical management. 10. Hypertension. now hypotensive sec to severe sepsis. sp volume resuscitation. 11. Hypothyroidism. Continue Synthroid. 12. Gastrointestinal and deep venous thrombosis prophylaxis. Continue proton pump inhibitor and sequential leg squeezers. 13. Mild hyperkalemia. Etiology is possibly secondary to Aldactone. We will discontinue at this time and monitor. 14. Azotemia. Etiology may be secondary to recent GI bleed and her diuretic therapy. We will continue to monitor. 15. Anemia secondary to gastrointestinal bleed as stated above. We will monitor hemoglobin and hematocrit levels Problems: HPI/ROS Admit Date/Time Admit Date/Time Hx of Present Illness 87-year-old woman brought in by EMS from This is an 86-year-old female with a past medical history of ventilator dependent respiratory failure, history of dysphagia, status post PEG, history of chronic encephalopathy, history of CVA, history of dyslipidemia, hypertension , hypothyroidism, and atrial fibrillation who presents to [facility] Emergency Room for evaluation of anemia. The patient was previously admitted to [facility]. At that time, the patient was brought in from an outside hospital due to acute CVA, respiratory failure, and sepsis. The patient was eventually transferred to [facility], a subacute facility[facility] red blood found in her stool and in her diaper. She does have a history of gastrointestinal bleeding. She has had no vomiting or diarrhea and no respiratory difficulty although HPI is limited as patient is nonverbal. HPI supplemented by reviewing past medical history, [facility] records, speaking to EMS, and nursing staff.. The patient had guaiac stools positive and as a result was transferred to [facility] for evaluation. Upon arrival, the patient was nonverbal, and she was hypotensive. The patient's laboratory data showed uti, had a chest x-ray which showed CHF and mild edema. In the emergency room, the patient was agressively volume resuscitated. There is no recent report of hemoptysis. No rashes. No other events noted. PAST MEDICAL HISTORY: As stated above, history of chronic respiratory failure, history of dysphagia, history of encephalopathy, history of CVA, dyslipidemia, hypertension, atrial fibrillation. PAST SURGICAL HISTORY: Status post trach and PEG. FAMILY HISTORY: Noncontributory. SOCIAL HISTORY: Lives at a subacute facility. REVIEW OF SYSTEMS: Unable to do adequate review of systems as the patient is altered. Pertinent positives obtained by reviewing medical records, speaking to hospital staff and niece who is at bedside PHYSICAL EXAMINATION: HEENT: Head is normocephalic. NECK: Shows trach. HEART: Irregularly irregular. LUNGS: Show diminished breath sounds at base. Positive rhonchi and crackles. ABDOMEN: Soft, nontender, positive PEG. EXTREMITIES: Negative for clubbing, cyanosis. Positive edema. MUSCULOSKELETAL: The patient has resolving shingles rash in her groin. NEUROLOGIC: The patient is obtunded, limited exam. PMH/Family/Social Social History Smoking Status: Unknown if ever smoked Exam/Review of Systems Vital Signs Vitals Vital Signs Date Time Temp Pulse Resp B/P Pulse Ox O2 Delivery O2 Flow Rate FiO2 04/14/17 07:39 82 12 99 40 7/16/17 05:46 169/72 Room Air 04/14/17 01:30 98.9 Labs Result Diagram: 04/13/17 2330 04/13/17 2330 YUMIKO EDWARDS MD Apr 14, 2017 09:35
[2017-04-14] MEDS ORDERED: SOD CHLORIDE 0.9% 1,000 ML IV STA (15:38)
[2017-04-14] MEDS ORDERED: LANSOPRAZOLE 30 MG CAP GTB SCH (17:30)
[2017-04-14] MEDS ORDERED: ACETAMINOPHEN 325 MG TAB PO PRN (17:30)
[2017-04-14] MEDS ORDERED: NA PHOSPHATE/BIPHOS 66.6 ML ENEMA PR PRN (17:30)
[2017-04-14] MEDS ORDERED: ONDANSETRON 4 MG TAB GTB PRN (17:30)
[2017-04-14] MEDS ORDERED: NACL 0.9% 3 ML SYG IV SCH (17:30)
[2017-04-14] MEDS ORDERED: DIGOXIN 0.125 MG TAB GTB SCH (19:00)
[2017-04-14] MEDS: DILTIAZEM (SR) 60 MG CAP PO SCH (21:00)
[2017-04-14] MEDS ORDERED: DEXTROSE 5%-0.9% NACL 1,000 ML IV SCH (23:30)
[2017-04-14] MEDS ORDERED: VANCOMYCIN IV PER PHARMACY XX SCH (23:30)
[2017-04-14] MEDS: ATORVASTATIN 40 MG TAB GTB SCH (23:44)
[2017-04-14] MEDS: METOPROLOL 50 MG TAB GTB SCH (23:46)
[2017-04-15] VITALS (30 sets, daily range): BP systolic 146–188; BP diastolic 61–101; PULSE 62–103; RESP 12–25
[2017-04-15] MEDS: LOSARTAN 50 MG TAB GTB SCH ×2 (00:54→08:03)
[2017-04-15] MEDS: LABETALOL 100 MG TAB GTB SCH ×5 (01:00→18:27)
[2017-04-15] MEDS: CHLORHEXIDINE GLUCONATE 15 ML UD CUP MM SCH ×3 (01:06→21:46)
[2017-04-15] MEDS: CEFEPIME 2GM/50 ML (PMX) 50 ML IVPB SCH ×3 (01:06→21:37)
[2017-04-15] MEDS ORDERED: VANCOMYCIN 1 GM in NS 250 ML IVPB SCH (03:00)
[2017-04-15] MEDS: VANCOMYCIN 1 GM in NS 250 ML IVPB SCH (03:09)
[2017-04-15] MEDS: PANTOPRAZOLE 40 MG INJ IV SCH (05:43)
[2017-04-15 05:58] LABS: ADD SCAN DIFF NO
[2017-04-15 06:00] LABS: BASOPHILS % 0.4 % (0.0-2.0); EOSINOPHILS % 0.7 % (0.0-7.0); HEMOGLOBIN 9.9 g/dl (12.0-16.0); LYMPHOCYTES # 0.7 10^3/ul (0.8-2.9); LYMPHOCYTES % 12.1 % (15.0-51.0); MEAN CORPUSCULAR HEMOGLOBIN 28.7 pg (29.0-33.0); MEAN CORPUSCULAR VOLUME 95.7 fl (82.0-101.0); MEAN PLATELET VOLUME 10.9 fl (7.4-10.4); MONOCYTE # 0.2 10^3/ul (0.3-0.9); MONOCYTES % 4.1 % (0.0-11.0); NEUTROPHIL # 4.6 10^3/ul (1.6-7.5); NEUTROPHILS % 82.3 % (39.0-77.0); PLATELET COUNT 159 10^3/UL (140-415); RED BLOOD COUNT 3.45 10^6/ul (4.20-5.40); RED CELL DISTRIBUTION WIDTH 17.6 % (11.5-14.5); WHITE BLOOD COUNT 5.6 10^3/ul (4.8-10.8)
[2017-04-15 06:50] LABS: ALBUMIN/GLOBULIN RATIO 0.78; BILIRUBIN,INDIRECT 0.6 mg/dl (0-1.1); BILIRUBIN,TOTAL 0.6 mg/dl (0.2-1.3); CALCIUM 8.8 mg/dl (8.4-10.2); CREATININE 0.51 mg/dl (0.44-1.00); POTASSIUM 3.9 mmol/L (3.5-5.1); TOTAL PROTEIN 6.8 g/dl (6.1-8.1)
[2017-04-15] MEDS: LEVOTHYROXINE 125 MCG TAB GTB SCH (07:56)
[2017-04-15] MEDS: METOPROLOL 50 MG TAB GTB SCH ×2 (08:03→21:36)
[2017-04-15] MEDS: DILTIAZEM (SR) 60 MG CAP PO SCH ×2 (08:04→21:00)
[2017-04-15] MEDS: CALCIUM CARBONATE 1.25 GM TAB GTB SCH (08:51)
[2017-04-15] MEDS: MAGNESIUM HYDROXIDE 30ML CUP GTB SCH (08:51)
--- NOTE | 2017-04-15 09:15 | PN ---
Date/Time of Note Date/Time of Note DATE: 04/15/17 TIME: 09:08 Assessment/Plan VTE Prophylaxis VTE Prophylaxis Intervention: other Lines/Catheters Urinary Cath still in place: Yes Reason Cath still needed: other (indicate) Assessment/Plan Chief Complaint/Hosp Course 1. Acute lower gastrointestinal bleed. -The patient's stools were noted to be guaiac positive at an outside facility, and she is anemic. - Plan at this point is to type and cross, transfuse 2 units of PRBC. If hemoglobin level should fall below 8 g per days -we will hold the patient's anticoagulation, Eliquis. - We will place a GI consult with Dr. Rai for evaluation and monitor closely. 2. Sepsis secondary to gram-positive bacteremia source may be UTI -Blood cultures have been reviewed continue antibiotic regimen -Follow-up with infectious disease 3. Hypertensive urgency -Unclear etiology to sudden increase in blood pressure -Patient does not appear to be in any pain -Blood pressure medications were adjusted, hydralazine was added -We will check a CT scan of the brain 4. Ventilator dependent respiratory failure. The patient's vent settings have been reviewed. Place see pulmonary consult for evaluation. We will monitor closely. 5. Dysphagia status post PEG. The patient will be resumed on tube feeding once cleared by GI 6. Atrial fibrillation. The patient's rate is currently controlled. Continue metoprolol, diltiazem, and digoxin. We will hold anticoagulation in the setting of gastrointestinal bleed. We will follow up with cardiology. 7. Congestive heart failure. The patient is currently decompensated. Chest x- ray shows pulmonary congestion. We will follow up with cardiology for recommendations. -Give Lasix 40 IV 1 8. 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 Continue to monitor. 9. History of cerebrovascular accident. Continue medical management. 10. Hyponatremia mild. Start D5 water 11. Hypothyroidism. Continue Synthroid. 12. Gastrointestinal and deep venous thrombosis prophylaxis. Continue proton pump inhibitor and sequential leg squeezers. 15. Anemia secondary to gastrointestinal bleed as stated above. We will monitor hemoglobin and hematocrit levels Problems: Problems: Subjective 24 Hr Interval Summary Free Text/Dictation Patient this morning was noted to be hypertensive systolic pressures in the 180s -200s despite receiving routine blood pressure medication -No other acute events noted no further bleeding Exam/Review of Systems Vital Signs Vitals Vital Signs Date Time Temp Pulse Resp B/P Pulse Ox O2 Delivery O2 Flow Rate FiO2 04/15/17 08:44 97.9 67 14 182/86 96 Mechanical Ventilator 04/15/17 07:20 30 04/14/17 17:00 10.0 Intake and Output 04/14/17 04/14/17 04/15/17 15:00 23:00 07:00 Intake Total 1000 ml Balance 1000 ml Exam HEENT: Head is normocephalic. NECK: Shows trach. HEART: Irregularly irregular. LUNGS: Show diminished breath sounds at base. Positive rhonchi and crackles. ABDOMEN: Soft, nontender, positive PEG. EXTREMITIES: Negative for clubbing, cyanosis. Positive edema. MUSCULOSKELETAL: No joint effusion NEUROLOGIC: The patient is obtunded, limited exam. Results Result Diagram: 04/15/17 0541 04/15/17 0541 Results 24 hrs Laboratory Tests Test 04/14/17 23:56 04/15/17 05:41 Bedside Glucose 104 White Blood Count 5.6 # Red Blood Count 3.45 L Hemoglobin 9.9 L Hematocrit 33.0 L Mean Corpuscular Volume 95.7 Mean Corpuscular Hemoglobin 28.7 L Mean Corpuscular Hemoglobin Concent 30.0 L Red Cell Distribution Width 17.6 H Platelet Count 159 Mean Platelet Volume 10.9 H Neutrophils % 82.3 H Lymphocytes % 12.1 L Monocytes % 4.1 Eosinophils % 0.7 Basophils % 0.4 Nucleated Red Blood Cells % 0.0 Neutrophils # 4.6 Lymphocytes # 0.7 L Monocytes # 0.2 L Eosinophils # 0.0 Basophils # 0.0 Nucleated Red Blood Cells # 0.0 Sodium Level 145 H Potassium Level 3.9 Chloride Level 107 # Carbon Dioxide Level 25 Anion Gap 17 H Blood Urea Nitrogen 17 # Creatinine 0.51 Glucose Level 117 Lactic Acid Level 1.2 Calcium Level 8.8 Total Bilirubin 0.6 Direct Bilirubin 0.00 Indirect Bilirubin 0.6 Aspartate Amino Transf (AST/SGOT) 52 H Alanine Aminotransferase (ALT/SGPT) 33 Alkaline Phosphatase 88 Total Protein 6.8 # Albumin 3.0 L Globulin 3.80 H Albumin/Globulin Ratio 0.78 Medications Medications Current Medications Cefepime HCl (Maxipime 2gm/50 ml (Pmx)) 50 ml @ 100 mls/hr Q12 IVPB Last administered on 04/15/17t 01:06; Admin Dose 100 MLS/HR; Start 04/14/17 at 21:00 Acetaminophen (Tylenol Tab) 650 mg Q6H PRN PO PAIN LEVEL 1-3 OR FEVER; Start at 17:30 Pantoprazole (Protonix Iv) 40 mg DAILY@06 IV Last administered on 04/15/17 05: 43; Admin Dose 40 MG; Start 04/15/17 at 06:00 Atorvastatin Calcium (Lipitor) 40 mg QHS GTB Last administered on 04/14/17 23: 44; Admin Dose 40 MG; Start 04/14/17 at 21:00 Bisacodyl (Dulcolax Supp) 10 mg Q2D [place] ; Start 04/14/17 at 17:30 Calcium Carbonate (Oyster Shell Calcium) 1.25 gm DAILY GTB Last administered on 04/15/17 08:51; Admin Dose 1.25 GM; Start 04/15/17 at 09:00 Chlorhexidine Gluconate (Peridex) 15 ml Q12 MM Last administered on 04/15/17 08:03; Admin Dose 15 ML; Start 04/14/17 at 21:00 Digoxin (Digoxin) 0.125 mg Q2D@13 GTB Last administered on 04/14/17 23:44; Admin Dose 0.125 MG; Start 04/14/17 at 19:00 Diltiazem HCl (Cardizem Sr) 60 mg BID PO Last administered on 04/15/17 08:04; Admin Dose 60 MG; Start 04/14/17 at 21:00 Labetalol HCl (Normodyne) 50 mg Q6 GTB Last administered on 04/15/17 05:42; Admin Dose 50 MG; Start 04/14/17 at 19:00 Losartan Potassium (Cozaar) 100 mg DAILY GTB Last administered on 04/15/17 08: 03; Admin Dose 100 MG; Start 04/15/17 at 00:30 Magnesium Hydroxide (Milk Of Mag) 30 ml DAILY GTB Last administered on 08:51; Admin Dose 30 ML; Start 04/15/17 at 09:00 Metoprolol Tartrate (Lopressor) 50 mg BID GTB Last administered on 04/15/17 08 :03; Admin Dose 50 MG; Start 04/14/17 at 21:00 Ondansetron HCl (Zofran Tab) 4 mg Q6H PRN GTB NAUSEA AND/OR VOMITING; Start at 17:30 Sodium Biphosphate/ Sodium Phosphate (Fleet Enema Pediatric) 66.6 ml Q3D PRN [place] CONSTIPATION; Start 04/14/17 at 17:30 Spironolactone 25 mg 25 mg BID GTB ; Start 04/14/17 at 21:00; Status Future Hold Vancomycin HCl 250 ml @ 125 mls/hr Q24H IVPB Last administered on 04/15/17 03 :09; Admin Dose 125 MLS/HR; Start 04/15/17 at 03:00 Dextrose (D5W) 1,000 ml @ 50 mls/hr Q20H IV ; Start 04/15/17 at 09:00; Status UNV Hydralazine HCl (Apresoline) 25 mg Q8 PO ; Start 04/15/17 at 09:30; Status UNV NIRMALA TAVAREZ DO Apr 15, 2017 09:15
[2017-04-15] MEDS: DEXTROSE 5% 1,000 ML IV SCH (09:36)
[2017-04-15 14:14] LABS: HEMATOCRIT 33.2 % (37.0-47.0); HEMOGLOBIN 10.2 g/dl (12.0-16.0)
--- NOTE | 2017-04-15 15:58 | CONS ---
Date/Time of Note Date/Time of Note DATE: 04/15/17 TIME: 15:57 Consultation Date/Type/Reason Admit Date/Time Type of Consultation: ID Reason for Consultation This is Dr. Eduard Vela dictating infectious consult on Melissa Lynch date of admission is 04/13/2017 date of consultation and dictation is 04/15/2017, the reason for consultation is antibiotic management. Patient is an 87-year-old female with numerous problems who comes in with acute lower GI bleed and sepsis probably secondary to urinary tract infection. Past problems include: 1. Ventilatory dependent respiratory failure #2 history of dysphagia status post G-tube placement 3. Chronic encephalopathy 4. History of CVA 5. Dyslipidemia 6. Hypertension 7. Hypothyroidism 8. Atrial fibrillation Patient presents to [facility] emergency room for evaluation of anemia the [facility] bright red blood found in her stool in her diaper she has a history of GI bleed. She has had no vomiting or diarrhea and no respiratory difficulty, although HPI is limited as patient is nonverbal. Patient was hypotensive in the emergency room. On admission her white count was 7.4 H&H of 11.4 and 36.1 platelet count 195, 000. BUN/creatinine 26/0.68 glucose 114. Past medical history: As outlined Past surgical history status post trach and PEG Family history noncontributory Social history lives at a subacute facility Medications per chart Allergies: None to penicillin sulfa foods Review of systems noncontributory On physical examination patient is an elderly appearing female who is awake but noncommunicative. Vital signs are stable she is afebrile. SHEENT: Within normal limits Neck is supple without neck vein distention, carotids 2+ without bruit. Chest: Decreased breath sounds at the bases with rhonchi and rales. Heart: Irregularly irregular rhythm Abdomen: Soft, nontender, G-tube present. Extremities: Without cyanosis or clubbing. 1+ edema Rectal genital exams: Resolving shingles rash in the groin area Neurological evaluation: Patient is awake but noncommunicative no other focal neurological abnormalities. White count today is 5.6. Blood cultures 2 sets are growing staph species the cath urine is growing non-lactose fermenting gram-negative rods chest x-ray shows vascular congestion and interstitial edema with enlarged cardiac silhouette and aortic atherosclerosis. Patient was begun on vancomycin and cefepime. We will get repeat blood cultures and observe. I will dictate my findings to the nephrology group. Dr. Rai is to see the patient for GI evaluation. Thank you for this inside sales advisor. Social History Smoking Status: Unknown if ever smoked Exam/Review of Systems Vital Signs Vitals Vital Signs Date Time Temp Pulse Resp B/P Pulse Ox O2 Delivery O2 Flow Rate FiO2 04/15/17 15:08 65 23 96 30 04/15/17 14:15 164/81 04/15/17 11:31 98.5 04/15/17 08:44 Mechanical Ventilator 04/14/17 17:00 10.0 Intake and Output 04/14/17 04/14/17 04/15/17 14:59 22:59 06:59 Intake Total 1000 ml Balance 1000 ml Results Result Diagram: 04/15/17 1335 04/15/17 0541 Results 24 hrs Laboratory Tests Test 04/14/17 23:56 04/15/17 05:41 04/15/17 13:35 Bedside Glucose 104 White Blood Count 5.6 # Red Blood Count 3.45 L Hemoglobin 9.9 L 10.2 L Hematocrit 33.0 L 33.2 L Mean Corpuscular Volume 95.7 Mean Corpuscular Hemoglobin 28.7 L Mean Corpuscular Hemoglobin Concent 30.0 L Red Cell Distribution Width 17.6 H Platelet Count 159 Mean Platelet Volume 10.9 H Neutrophils % 82.3 H Lymphocytes % 12.1 L Monocytes % 4.1 Eosinophils % 0.7 Basophils % 0.4 Nucleated Red Blood Cells % 0.0 Neutrophils # 4.6 Lymphocytes # 0.7 L Monocytes # 0.2 L Eosinophils # 0.0 Basophils # 0.0 Nucleated Red Blood Cells # 0.0 Sodium Level 145 H Potassium Level 3.9 Chloride Level 107 # Carbon Dioxide Level 25 Anion Gap 17 H Blood Urea Nitrogen 17 # Creatinine 0.51 Glucose Level 117 Lactic Acid Level 1.2 Calcium Level 8.8 Total Bilirubin 0.6 Direct Bilirubin 0.00 Indirect Bilirubin 0.6 Aspartate Amino Transf (AST/SGOT) 52 H Alanine Aminotransferase (ALT/SGPT) 33 Alkaline Phosphatase 88 Total Protein 6.8 # Albumin 3.0 L Globulin 3.80 H Albumin/Globulin Ratio 0.78 Medications Medications Current Medications Cefepime HCl (Maxipime 2gm/50 ml (Pmx)) 50 ml @ 100 mls/hr Q12 IVPB Last administered on 04/15/17 09:36; Admin Dose 100 MLS/HR; Start 04/14/17 at 21:00 Acetaminophen (Tylenol Tab) 650 mg Q6H PRN PO PAIN LEVEL 1-3 OR FEVER; Start at 17:30 Pantoprazole (Protonix Iv) 40 mg DAILY@06 IV Last administered on 04/15/17 05: 43; Admin Dose 40 MG; Start 04/15/17 at 06:00 Atorvastatin Calcium (Lipitor) 40 mg QHS GTB Last administered on 04/14/17 23: 44; Admin Dose 40 MG; Start 04/14/17 at 21:00 Bisacodyl (Dulcolax Supp) 10 mg Q2D [place] ; Start 04/14/17 at 17:30 Calcium Carbonate (Oyster Shell Calcium) 1.25 gm DAILY GTB Last administered on 04/15/17 08:51; Admin Dose 1.25 GM; Start 04/15/17 at 09:00 Chlorhexidine Gluconate (Peridex) 15 ml Q12 MM Last administered on 04/15/17 08:03; Admin Dose 15 ML; Start 04/14/17 at 21:00 Digoxin (Digoxin) 0.125 mg Q2D@13 GTB Last administered on 04/14/17 23:44; Admin Dose 0.125 MG; Start 04/14/17 at 19:00 Diltiazem HCl (Cardizem Sr) 60 mg BID PO Last administered on 04/15/17 08:04; Admin Dose 60 MG; Start 04/14/17 at 21:00 Labetalol HCl (Normodyne) 50 mg Q6 GTB Last administered on 04/15/17 11:39; Admin Dose 50 MG; Start 04/14/17 at 19:00 Losartan Potassium (Cozaar) 100 mg DAILY GTB Last administered on 04/15/17 08: 03; Admin Dose 100 MG; Start 04/15/17 at 00:30 Magnesium Hydroxide (Milk Of Mag) 30 ml DAILY GTB Last administered on 08:51; Admin Dose 30 ML; Start 04/15/17 at 09:00 Metoprolol Tartrate (Lopressor) 50 mg BID GTB Last administered on 04/15/17 08 :03; Admin Dose 50 MG; Start 04/14/17 at 21:00 Ondansetron HCl (Zofran Tab) 4 mg Q6H PRN GTB NAUSEA AND/OR VOMITING; Start at 17:30 Sodium Biphosphate/ Sodium Phosphate (Fleet Enema Pediatric) 66.6 ml Q3D PRN [place] CONSTIPATION; Start 04/14/17 at 17:30 Spironolactone 25 mg 25 mg BID GTB ; Start 04/14/17 at 21:00; Status Future Hold Vancomycin HCl 250 ml @ 125 mls/hr Q24H IVPB Last administered on 04/15/17 03 :09; Admin Dose 125 MLS/HR; Start 04/15/17 at 03:00 Dextrose (D5W) 1,000 ml @ 50 mls/hr Q20H IV Last administered on 04/15/17 09: 36; Admin Dose 50 MLS/HR; Start 04/15/17 at 09:00 Hydralazine HCl (Apresoline) 25 mg Q8 PO Last administered on 04/15/17 14:15; Admin Dose 25 MG; Start 04/15/17 at 09:30 EDUARD VELA MD Apr 15, 2017 15:57
--- NOTE | 2017-04-15 16:23 | RADRPT ---
PROCEDURE: CT Brain without contrast. CLINICAL INDICATION: Hypertension and altered mental status. TECHNIQUE: A CT of the brain without contrast was performed utilizing axial sections from the skul l base through the vertex. The patient was scanned without intravenous contrast enhancement. Sagitta l and coronal reformatted images were obtained using the data from the axial images. Total exam DLP is 720.23 mGy-cm. CTDIvol is 42.30 mGy. One or more of the following dose reduction techniques we re used: Automated exposure control, adjustment of the mA and/or kV according to patient size, use o f iterative reconstruction technique. COMPARISON: CT scan of the brain dated 11/24/2016. FINDINGS: There are large regions of encephalomalacia in the left temporal, parietal, and frontal lobe consist ent with an old left middle cerebral artery infarct. The pederson and white matter differentiation is ot herwise normal with no evidence of recent infarct. There is enlargement of the ventricles and subarachnoid spaces consistent with atrophy. There is decreased attenuation of the periventricular white matter consistent with microangiopathic ischemic change. There is no intracranial hemorrhage or space-occupying lesion. There are vascular calcifications consistent with atherosclerosis. There is no skull fracture or lytic lesion. There is partial opacification of the mastoid air cells bilaterally, improved. IMPRESSION: 1. Atrophy. 2. Microangiopathic ischemic change. 3. Atherosclerosis. 4. Large old infarct in the left middle cerebral artery distribution. 5. No intracranial hemorrhage. 6. Improved appearance of the mastoid air cells. 7. Otherwise unremarkable noncontrast CT scan of the brain. RPTAT: QQ .Nash Hudson MD, MD Date Time Electronically viewed and signed by .Nash Hudson MD, MD on 04/15/2017 16:22 .R/
--- NOTE | 2017-04-15 16:26 | CONS ---
Date/Time of Note Date/Time of Note DATE: 04/15/17 TIME: 16:22 Assessment/Plan Assessment/Plan Chief Complaint/Hosp Course Assessment 1. Anemia rule out GI bleed 2. Vent dependent respiratory failure 3 history of dysphagia with G-tube 4. History of UTI gram-positive bacteremia 5. Hypertensive urgency Plan 1. Continue mechanical ventilation check ABG 2. Review chest x-ray 3. Serial H&H monitor for drop in hemoglobin 4. GI evaluation possible endoscopy 6. DVT and GI prophylaxis Problems: Consultation Date/Type/Reason Admit Date/Time Date of Consultation: Apr 15, 2017 Type of Consultation: Pulmonary Hx of Present Illness 87-year-old gentleman with multiple medical problems including vent dependent respiratory failure, dysphagia with G-tube transferred from care home facility for evaluation of anemia. His stool was guaiac positive on admission but patient had no evidence of hemodynamic instability. No nausea no vomiting no fever no chills. He is however on Eliquis for atrial fibrillation. In addition patient was found to have bacteremia with gram-positive urinary tract infection. As well as this patient was found to have increase in blood pressure although no evidence of agitation or distress. Patient has a history of vent dependent respiratory failure with dysphagia and G -tube in place. Past Medical History Vent dependent respiratory failure Dysphagia with G-tube Atrial fibrillation Essential hypertension Social History Smoking Status: Unknown if ever smoked Exam/Review of Systems Vital Signs Vitals Vital Signs Date Time Temp Pulse Resp B/P Pulse Ox O2 Delivery O2 Flow Rate FiO2 04/15/17 15:08 65 23 96 30 04/15/17 14:15 164/81 04/15/17 11:31 98.5 04/15/17 08:44 Mechanical Ventilator 04/14/17 17:00 10.0 Intake and Output 04/14/17 04/14/17 04/15/17 14:59 22:59 06:59 Intake Total 1000 ml Balance 1000 ml Exam PHYSICAL EXAMINATION GENERAL: Elderly gentleman, on mechanical ventilation via tracheostomy VITAL SIGNS: see below. HEENT: Pupils equal, round, and reactive to light. Tracheostomy site clean and intact. CARDIAC: S1, S2, 1/6 systolic ejection murmur CHEST: Diminished air entry bilaterally. ABDOMEN: Mildly distended. Bowel sounds present no guarding or rebound EXTREMITIES: No cyanosis, clubbing edema +1 NEUROLOGIC: Generalized weakness Results Result Diagram: 04/15/17 1335 04/15/17 0541 Results 24 hrs Laboratory Tests Test 04/14/17 23:56 04/15/17 05:41 04/15/17 13:35 Bedside Glucose 104 White Blood Count 5.6 # Red Blood Count 3.45 L Hemoglobin 9.9 L 10.2 L Hematocrit 33.0 L 33.2 L Mean Corpuscular Volume 95.7 Mean Corpuscular Hemoglobin 28.7 L Mean Corpuscular Hemoglobin Concent 30.0 L Red Cell Distribution Width 17.6 H Platelet Count 159 Mean Platelet Volume 10.9 H Neutrophils % 82.3 H Lymphocytes % 12.1 L Monocytes % 4.1 Eosinophils % 0.7 Basophils % 0.4 Nucleated Red Blood Cells % 0.0 Neutrophils # 4.6 Lymphocytes # 0.7 L Monocytes # 0.2 L Eosinophils # 0.0 Basophils # 0.0 Nucleated Red Blood Cells # 0.0 Sodium Level 145 H Potassium Level 3.9 Chloride Level 107 # Carbon Dioxide Level 25 Anion Gap 17 H Blood Urea Nitrogen 17 # Creatinine 0.51 Glucose Level 117 Lactic Acid Level 1.2 Calcium Level 8.8 Total Bilirubin 0.6 Direct Bilirubin 0.00 Indirect Bilirubin 0.6 Aspartate Amino Transf (AST/SGOT) 52 H Alanine Aminotransferase (ALT/SGPT) 33 Alkaline Phosphatase 88 Total Protein 6.8 # Albumin 3.0 L Globulin 3.80 H Albumin/Globulin Ratio 0.78 Medications Medications Current Medications Cefepime HCl (Maxipime 2gm/50 ml (Pmx)) 50 ml @ 100 mls/hr Q12 IVPB Last administered on 04/15/17 09:36; Admin Dose 100 MLS/HR; Start 04/14/17 at 21:00 Acetaminophen (Tylenol Tab) 650 mg Q6H PRN PO PAIN LEVEL 1-3 OR FEVER; Start at 17:30 Pantoprazole (Protonix Iv) 40 mg DAILY@06 IV Last administered on 04/15/17 05: 43; Admin Dose 40 MG; Start 04/15/17 at 06:00 Atorvastatin Calcium (Lipitor) 40 mg QHS GTB Last administered on 04/14/17 23: 44; Admin Dose 40 MG; Start 04/14/17 at 21:00 Bisacodyl (Dulcolax Supp) 10 mg Q2D [place] ; Start 04/14/17 at 17:30 Calcium Carbonate (Oyster Shell Calcium) 1.25 gm DAILY GTB Last administered on 04/15/17 08:51; Admin Dose 1.25 GM; Start 04/15/17 at 09:00 Chlorhexidine Gluconate (Peridex) 15 ml Q12 MM Last administered on 04/15/17 08:03; Admin Dose 15 ML; Start 04/14/17 at 21:00 Digoxin (Digoxin) 0.125 mg Q2D@13 GTB Last administered on 04/14/17 23:44; Admin Dose 0.125 MG; Start 04/14/17 at 19:00 Diltiazem HCl (Cardizem Sr) 60 mg BID PO Last administered on 04/15/17 08:04; Admin Dose 60 MG; Start 04/14/17 at 21:00 Labetalol HCl (Normodyne) 50 mg Q6 GTB Last administered on 04/15/17 11:39; Admin Dose 50 MG; Start 04/14/17 at 19:00 Losartan Potassium (Cozaar) 100 mg DAILY GTB Last administered on 04/15/17 08: 03; Admin Dose 100 MG; Start 04/15/17 at 00:30 Magnesium Hydroxide (Milk Of Mag) 30 ml DAILY GTB Last administered on 08:51; Admin Dose 30 ML; Start 04/15/17 at 09:00 Metoprolol Tartrate (Lopressor) 50 mg BID GTB Last administered on 04/15/17 08 :03; Admin Dose 50 MG; Start 04/14/17 at 21:00 Ondansetron HCl (Zofran Tab) 4 mg Q6H PRN GTB NAUSEA AND/OR VOMITING; Start at 17:30 Sodium Biphosphate/ Sodium Phosphate (Fleet Enema Pediatric) 66.6 ml Q3D PRN [place] CONSTIPATION; Start 04/14/17 at 17:30 Spironolactone 25 mg 25 mg BID GTB ; Start 04/14/17 at 21:00; Status Future Hold Vancomycin HCl 250 ml @ 125 mls/hr Q24H IVPB Last administered on 04/15/17 03 :09; Admin Dose 125 MLS/HR; Start 04/15/17 at 03:00 Dextrose (D5W) 1,000 ml @ 50 mls/hr Q20H IV Last administered on 04/15/17 09: 36; Admin Dose 50 MLS/HR; Start 04/15/17 at 09:00 Hydralazine HCl (Apresoline) 25 mg Q8 PO Last administered on 04/15/17 14:15; Admin Dose 25 MG; Start 04/15/17 at 09:30 MEL[facility] SEVERINO MD, [facility] Apr 15, 2017 16:26
--- NOTE | 2017-04-15 18:06 | CONS ---
Date/Time of Note Date/Time of Note DATE: 04/15/17 TIME: 18:03 Assessment/Plan Assessment/Plan Additional Assessment/Plan #1 GI bleeding with a positive stool guaiac and melanotic stool 2. Anemia 3. Atrial fibrillation on Eliquis 4. Vent dependent respiratory for 5. Hypertension 6. Hypothyroid 7. CVA 8. Encephalopathy 9. UTI Plan Stop Eliquis Monitor H&H and transfuse if hemoglobin less than 7.5 PPI EGD once the consent is obtained. Consultation Date/Type/Reason Admit Date/Time Hx of Present Illness 87-year-old female with history of vent dependent respiratory failure, atrial fibrillation, CVA, encephalopathy was brought to the emergency room from subacute facility for anemia and passing black colored stool. And this was verified with the staff nurse on the floor. No nausea no vomiting. No chest pain or shortness of breath. Most of the information gathered by reviewing the chart. Patient was not in the poor position to give any history. Past Medical History Medical History: hypertension, hypothyroid, urinary tract infection Past Surgical History Past Surgical Hx: other (Status post PEG and trach) Family History Significant Family History: no pertinent family hx Social History Alcohol Use: none Smoking Status: Unknown if ever smoked Drug Use: none Exam/Review of Systems Vital Signs Vitals Vital Signs Date Time Temp Pulse Resp B/P Pulse Ox O2 Delivery O2 Flow Rate FiO2 04/15/17 17:15 68 19 100 30 04/15/17 14:15 164/81 04/15/17 11:31 98.5 04/15/17 08:44 Mechanical Ventilator 04/14/17 17:00 10.0 Intake and Output 04/14/17 04/14/17 04/15/17 15:00 23:00 07:00 Intake Total 1000 ml Balance 1000 ml Exam Constitutional: alert, oriented, well developed Psych: nl mood/affect, no complaints Head: atraumatic, normocephalic Eyes: EOMI, PERRL, nl conjunctiva, nl lids, nl sclera ENMT: nl external ears & nose, nl lips & teeth, nl nasal mucosa & septum Neck: non-tender, supple Respiratory: clear to auscultation, normal air movement Cardiovascular: nl pulses, regular rate and rhythm Gastrointestinal: nl liver, spleen, non-tender, soft Musculoskeletal: nl extremities to inspection, nl gait and stance Extremities: normal pulses Neurological: [employer] II-XII intact, nl mental status, nl speech, nl strength Skin: nl turgor, No rash or lesions Lymph: nl lymph nodes Results Result Diagram: 04/15/17 1335 04/15/17 0541 Results 24 hrs Laboratory Tests Test 04/14/17 23:56 04/15/17 05:41 04/15/17 13:35 Bedside Glucose 104 White Blood Count 5.6 # Red Blood Count 3.45 L Hemoglobin 9.9 L 10.2 L Hematocrit 33.0 L 33.2 L Mean Corpuscular Volume 95.7 Mean Corpuscular Hemoglobin 28.7 L Mean Corpuscular Hemoglobin Concent 30.0 L Red Cell Distribution Width 17.6 H Platelet Count 159 Mean Platelet Volume 10.9 H Neutrophils % 82.3 H Lymphocytes % 12.1 L Monocytes % 4.1 Eosinophils % 0.7 Basophils % 0.4 Nucleated Red Blood Cells % 0.0 Neutrophils # 4.6 Lymphocytes # 0.7 L Monocytes # 0.2 L Eosinophils # 0.0 Basophils # 0.0 Nucleated Red Blood Cells # 0.0 Sodium Level 145 H Potassium Level 3.9 Chloride Level 107 # Carbon Dioxide Level 25 Anion Gap 17 H Blood Urea Nitrogen 17 # Creatinine 0.51 Glucose Level 117 Lactic Acid Level 1.2 Calcium Level 8.8 Total Bilirubin 0.6 Direct Bilirubin 0.00 Indirect Bilirubin 0.6 Aspartate Amino Transf (AST/SGOT) 52 H Alanine Aminotransferase (ALT/SGPT) 33 Alkaline Phosphatase 88 Total Protein 6.8 # Albumin 3.0 L Globulin 3.80 H Albumin/Globulin Ratio 0.78 Medications Medications Current Medications Cefepime HCl (Maxipime 2gm/50 ml (Pmx)) 50 ml @ 100 mls/hr Q12 IVPB Last administered on 04/15/17 09:36; Admin Dose 100 MLS/HR; Start 04/14/17 at 21:00 Acetaminophen (Tylenol Tab) 650 mg Q6H PRN PO PAIN LEVEL 1-3 OR FEVER; Start at 17:30 Pantoprazole (Protonix Iv) 40 mg DAILY@06 IV Last administered on 04/15/17 05: 43; Admin Dose 40 MG; Start 04/15/17 at 06:00 Atorvastatin Calcium (Lipitor) 40 mg QHS GTB Last administered on 04/14/17 23: 44; Admin Dose 40 MG; Start 04/14/17 at 21:00 Bisacodyl (Dulcolax Supp) 10 mg Q2D [place] ; Start 04/14/17 at 17:30 Calcium Carbonate (Oyster Shell Calcium) 1.25 gm DAILY GTB Last administered on 04/15/17 08:51; Admin Dose 1.25 GM; Start 04/15/17 at 09:00 Chlorhexidine Gluconate (Peridex) 15 ml Q12 MM Last administered on 04/15/17 08:03; Admin Dose 15 ML; Start 04/14/17 at 21:00 Digoxin (Digoxin) 0.125 mg Q2D@13 GTB Last administered on 04/14/17 23:44; Admin Dose 0.125 MG; Start 04/14/17 at 19:00 Diltiazem HCl (Cardizem Sr) 60 mg BID PO Last administered on 04/15/17 08:04; Admin Dose 60 MG; Start 04/14/17 at 21:00 Labetalol HCl (Normodyne) 50 mg Q6 GTB Last administered on 04/15/17 11:39; Admin Dose 50 MG; Start 04/14/17 at 19:00 Losartan Potassium (Cozaar) 100 mg DAILY GTB Last administered on 04/15/17 08: 03; Admin Dose 100 MG; Start 04/15/17 at 00:30 Magnesium Hydroxide (Milk Of Mag) 30 ml DAILY GTB Last administered on 08:51; Admin Dose 30 ML; Start 04/15/17 at 09:00 Metoprolol Tartrate (Lopressor) 50 mg BID GTB Last administered on 04/15/17 08 :03; Admin Dose 50 MG; Start 04/14/17 at 21:00 Ondansetron HCl (Zofran Tab) 4 mg Q6H PRN GTB NAUSEA AND/OR VOMITING; Start at 17:30 Sodium Biphosphate/ Sodium Phosphate (Fleet Enema Pediatric) 66.6 ml Q3D PRN [place] CONSTIPATION; Start 04/14/17 at 17:30 Spironolactone 25 mg 25 mg BID GTB ; Start 04/14/17 at 21:00; Status Future Hold Vancomycin HCl 250 ml @ 125 mls/hr Q24H IVPB Last administered on 04/15/17 03 :09; Admin Dose 125 MLS/HR; Start 04/15/17 at 03:00 Dextrose (D5W) 1,000 ml @ 50 mls/hr Q20H IV Last administered on 04/15/17 09: 36; Admin Dose 50 MLS/HR; Start 04/15/17 at 09:00 Hydralazine HCl (Apresoline) 25 mg Q8 PO Last administered on 04/15/17 14:15; Admin Dose 25 MG; Start 04/15/17 at 09:30 Lisinopril (Zestril) 10 mg DAILY GTB ; Start 04/16/17 at 09:00; Status UNV MARY PAYNE MD Apr 15, 2017 18:06
[2017-04-15] MEDS: ATORVASTATIN 40 MG TAB GTB SCH (21:35)
[2017-04-15] MEDS: NITROGLYCERIN 2% 1 GM OINT PKT TD PRN (22:44)
[2017-04-16] VITALS (29 sets, daily range): BP systolic 121–181; BP diastolic 54–113; PULSE 56–90; RESP 14–23
[2017-04-16] MEDS: LABETALOL 100 MG TAB GTB SCH ×4 (00:31→18:27)
[2017-04-16] MEDS: VANCOMYCIN 1 GM in NS 250 ML IVPB SCH (02:53)
[2017-04-16] MEDS: DEXTROSE 5% 1,000 ML IV SCH (05:57)
[2017-04-16] MEDS: PANTOPRAZOLE 40 MG INJ IV SCH (05:58)
[2017-04-16] MEDS: LEVOTHYROXINE 125 MCG TAB GTB SCH (06:05)
[2017-04-16 08:08] LABS: AADO2 Arterial 94.2 mmHg (7.0-24.0); Allen Test ACCEPTAB; Arterial Base Excess 0.4 mmol/L (-3.0-3); Arterial COHb 0.3 % (0.0-3.0); Arterial Fraction of Oxyhgb 94.5 % (93.0-99.0); Arterial HCO3 23.7 mmol/L (22.0-26.0); Arterial MetHb 0.4 % (0.0-1.5); Arterial Total Hemglobin 10.8 g/dl (12.0-18.0); MODE VENT - AC
--- NOTE | 2017-04-16 08:35 | PN ---
Date/Time of Note Date/Time of Note DATE: 04/16/17 TIME: 08:29 Assessment/Plan VTE Prophylaxis VTE Prophylaxis Intervention: other Lines/Catheters Urinary Cath still in place: Yes Reason Cath still needed: other (indicate) Assessment/Plan Chief Complaint/Hosp Course 1. Acute lower gastrointestinal bleed. -The patient's stools were noted to be guaiac positive at an outside facility, and she is anemic. - Plan at this point is to type and cross, transfuse 2 units of PRBC. If hemoglobin level should fall below 8 g per days -we will hold the patient's anticoagulation, Eliquis. -Follow-up with GI 2. Sepsis secondary to gram-positive bacteremia source may be UTI -Blood cultures have been reviewed continue antibiotic regimen -Follow-up with infectious disease 3. Hypertensive urgency, slowly improving -Unclear etiology to sudden increase in blood pressure -Patient does not appear to be in any pain -Blood pressure medications were adjusted, hydralazine was added - CT scan of the brain-negative for any acute 5 4. Ventilator dependent respiratory failure. The patient's vent settings have been reviewed. Place see pulmonary consult for evaluation. We will monitor closely. 5. Dysphagia status post PEG. The patient will be resumed on tube feeding once cleared by GI 6. Atrial fibrillation. The patient's rate is currently controlled. Continue metoprolol, diltiazem, and digoxin. We will hold anticoagulation in the setting of gastrointestinal bleed. We will follow up with cardiology. 7. Congestive heart failure. The patient is currently decompensated. Chest x- ray shows pulmonary congestion. We will follow up with cardiology for recommendations. -Give Lasix 40 IV 1 8. 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 Continue to monitor. 9. History of cerebrovascular accident. Continue medical management. 10. Hyponatremia mild. Start D5 water 11. Hypothyroidism. Continue Synthroid. 12. Gastrointestinal and deep venous thrombosis prophylaxis. Continue proton pump inhibitor and sequential leg squeezers. 15. Anemia secondary to gastrointestinal bleed as stated above. We will monitor hemoglobin and hematocrit levels 16. History of arthritis We will place the patient on routine Tylenol Elevated troponin We will follow-up with cardiology continue medical management Problems: Subjective 24 Hr Interval Summary Free Text/Dictation Patient seen and examined. I spoke with the patient's daughter yesterday updating her on the course of events Patient's pending possible endoscopy today blood pressure remains high but slowly improving may be a component of pain Exam/Review of Systems Vital Signs Vitals Vital Signs Date Time Temp Pulse Resp B/P Pulse Ox O2 Delivery O2 Flow Rate FiO2 04/16/17 07:49 98.3 70 16 174/64 100 04/16/17 04:24 30 04/15/17 08:44 Mechanical Ventilator 04/14/17 17:00 10.0 Intake and Output 04/15/17 04/15/17 04/16/17 15:00 23:00 07:00 Intake Total 100 ml 700 ml 900 ml Output Total 450 ml 550 ml 600 ml Balance -350 ml 150 ml 300 ml Exam HEENT: Head is normocephalic. NECK: Shows trach. HEART: Irregularly irregular. LUNGS: Show diminished breath sounds at base. Positive rhonchi and crackles. ABDOMEN: Soft, nontender, positive PEG. EXTREMITIES: Negative for clubbing, cyanosis. MUSCULOSKELETAL: No joint effusion NEUROLOGIC: The patient is obtunded, limited exam. Results Result Diagram: 04/15/17 1335 04/15/17 0541 Results 24 hrs Laboratory Tests Test 04/15/17 13:35 04/15/17 17:00 04/15/17 19:15 04/16/17 07:00 Hemoglobin 10.2 L Hematocrit 33.2 L Lactic Acid Level 1.6 Troponin I 0.225 *H Blood Gas Specimen Source Blood arterial Arterial Blood Date Drawn 04/16/2017 7:30:24 AM Arterial Blood pH (Temp corrected) 7.467 H Arterial Blood pCO2 (Temp correct) 33.6 L Arterial Blood pO2 (Temp corrected) 80.2 Arterial Blood HCO3 23.7 Arterial Blood Base Excess 0.4 Arterial Blood Oxygen Saturation 95.2 Brant Test ACCEPTAB Arterial Blood Gas Puncture Site Left Radial Arterial Blood Carboxyhemoglobin 0.3 Arterial Blood Methemoglobin 0.4 Blood Gas A-a O2 Differential 94.2 H Oxyhemoglobin Percent 94.5 Total Hemoglobin 10.8 L Blood Gas Temperature 37.0 Blood Gas Respiration Rate 12.0 Blood Gas Actual Respiration Rate 24 Blood Gas Modality VENT - AC FiO2 30.0 Blood Gas Tidal Volume 450.0 Blood Gas Low PEEP Setting 5.0 Blood Gas Notified Whom RH Blood Gas Notified Time 04/16/2017 8:07:54 AM Medications Medications Current Medications Cefepime HCl (Maxipime 2gm/50 ml (Pmx)) 50 ml @ 100 mls/hr Q12 IVPB Last administered on 04/15/17 21:37; Admin Dose 100 MLS/HR; Start 04/14/17 at 21:00 Acetaminophen (Tylenol Tab) 650 mg Q6H PRN PO PAIN LEVEL 1-3 OR FEVER Last administered on 04/15/17 22:41; Admin Dose 650 MG; Start 04/14/17 at 17:30 Pantoprazole (Protonix Iv) 40 mg DAILY@06 IV Last administered on 04/16/17 05: 58; Admin Dose 40 MG; Start 04/15/17 at 06:00 Atorvastatin Calcium (Lipitor) 40 mg QHS GTB Last administered on 04/15/17 21: 35; Admin Dose 40 MG; Start 04/14/17 at 21:00 Bisacodyl (Dulcolax Supp) 10 mg Q2D [place] ; Start 04/14/17 at 17:30 Calcium Carbonate (Oyster Shell Calcium) 1.25 gm DAILY GTB Last administered on 04/15/17 08:51; Admin Dose 1.25 GM; Start 04/15/17 at 09:00 Chlorhexidine Gluconate (Peridex) 15 ml Q12 MM Last administered on 04/15/17 21:46; Admin Dose 15 ML; Start 04/14/17 at 21:00 Digoxin (Digoxin) 0.125 mg Q2D@13 GTB Last administered on 04/14/17 23:44; Admin Dose 0.125 MG; Start 04/14/17 at 19:00 Diltiazem HCl (Cardizem Sr) 60 mg BID PO Last administered on 04/15/17 08:04; Admin Dose 60 MG; Start 04/14/17 at 21:00 Labetalol HCl (Normodyne) 50 mg Q6 GTB Last administered on 04/16/17 06:03; Admin Dose 50 MG; Start 04/14/17 at 19:00 Losartan Potassium (Cozaar) 100 mg DAILY GTB Last administered on 04/15/17 08: 03; Admin Dose 100 MG; Start 04/15/17 at 00:30 Magnesium Hydroxide (Milk Of Mag) 30 ml DAILY GTB Last administered on 08:51; Admin Dose 30 ML; Start 04/15/17 at 09:00 Metoprolol Tartrate (Lopressor) 50 mg BID GTB Last administered on 04/15/17 21 :36; Admin Dose 50 MG; Start 04/14/17 at 21:00 Ondansetron HCl (Zofran Tab) 4 mg Q6H PRN GTB NAUSEA AND/OR VOMITING; Start at 17:30 Sodium Biphosphate/ Sodium Phosphate (Fleet Enema Pediatric) 66.6 ml Q3D PRN [place] CONSTIPATION; Start 04/14/17 at 17:30 Spironolactone 25 mg 25 mg BID GTB ; Start 04/14/17 at 21:00; Status Future Hold Vancomycin HCl 250 ml @ 125 mls/hr Q24H IVPB Last administered on 04/16/17 02 :53; Admin Dose 125 MLS/HR; Start 04/15/17 at 03:00 Dextrose (D5W) 1,000 ml @ 50 mls/hr Q20H IV Last administered on 04/16/17 05: 57; Admin Dose 50 MLS/HR; Start 04/15/17 at 09:00 Clonidine (Catapres) 0.1 mg Q6H PRN GTB SBP >170 Last administered on 06:16; Admin Dose 0.1 MG; Start 04/15/17 at 19:00 Nitroglycerin (Nitroglycerin 2% Oint) 1 inch Q8 PRN TD SBP >170 Last administered on 04/15/17 22:44; Admin Dose 1 INCH; Start 04/15/17 at 19:00 Hydralazine HCl (Apresoline) 50 mg Q8 PO ; Start 04/16/17 at 14:00 NIRMALA TAVAREZ DO Apr 16, 2017 08:35
[2017-04-16] MEDS ORDERED: LISINOPRIL 10 MG TAB GTB SCH (09:00)
[2017-04-16] MEDS: CHLORHEXIDINE GLUCONATE 15 ML UD CUP MM SCH ×2 (09:05→21:23)
[2017-04-16] MEDS: MAGNESIUM HYDROXIDE 30ML CUP GTB SCH (09:05)
[2017-04-16] MEDS: ACETAMINOPHEN 325 MG TAB PO SCH ×3 (09:06→21:25)
[2017-04-16] MEDS: LOSARTAN 50 MG TAB GTB SCH (09:06)
[2017-04-16] MEDS: CALCIUM CARBONATE 1.25 GM TAB GTB SCH (09:06)
[2017-04-16] MEDS: METOPROLOL 50 MG TAB GTB SCH ×2 (09:08→21:24)
[2017-04-16] MEDS: DILTIAZEM (SR) 60 MG CAP PO SCH ×2 (09:08→21:25)
--- NOTE | 2017-04-16 09:08 | PN ---
Date/Time of Note Date/Time of Note DATE: 04/16/17 TIME: 08:57 Assessment/Plan VTE Prophylaxis VTE Prophylaxis Intervention: other Lines/Catheters Urinary Cath still in place: Yes Reason Cath still needed: other (indicate) Assessment/Plan Assessment/Plan Assessment/ Plan: 1. Gastrointestinal bleed. -The patient's stools were noted to be guaiac positive at an outside facility, and she is anemic. -we will hold the patient's anticoagulation, Eliquis. -Follow-up with GI 2. Sepsis secondary to gram-positive bacteremia: -Follow-up with infectious disease 3. Afib: ON HR control will dc dig cont betablocker and cardizem. off of eliquis due to bleeding concerns cont tele 4. Ventilator dependent respiratory failure. cont resp care. f/u with pulm 5. Dysphagia status post PEG. 6. HTN: cont betablocker, hydralazine caridizem resume aldactone lasix 7. Congestive heart failure/. fluid overload cont ARB LASIX as needed/ tolerated. 8. 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 Continue to monitor. 9. History of cerebrovascular accident. Continue medical management. Subjective 24 Hr Interval Summary Free Text/Dictation d/w staff and rhythm was reviewed. pt remains in Afib. HR has been on the low side but no pauses seen pt remains nonverbal on vent s/p trach. OBJECTIVE: General: no acute distress S/P trach on vent HEENT: NC/AT. pupils are equal. round. NECK: s/p trach. . no stridor. CV: irregularly irregular. . systolic murmur; no gallop or rubs. PULM: no wheezing anteriorly. GI: SOFT, NT, ND, no rebound or guarding Extremity: trace B/L LE edema. no clubbing. neuro: awake and appears alert. Psych: calm and pleasant rectal: deferred Derm: multile echymosis. Exam/Review of Systems Vital Signs Vitals Vital Signs Date Time Temp Pulse Resp B/P Pulse Ox O2 Delivery O2 Flow Rate FiO2 04/16/17 08:40 59 04/16/17 07:49 98.3 16 174/64 100 04/16/17 04:24 30 04/15/17 08:44 Mechanical Ventilator 04/14/17 17:00 10.0 Intake and Output 04/15/17 04/15/17 04/16/17 15:00 23:00 07:00 Intake Total 100 ml 700 ml 900 ml Output Total 450 ml 550 ml 600 ml Balance -350 ml 150 ml 300 ml Results Result Diagram: 04/15/17 1335 04/15/17 0541 Results 24 hrs Laboratory Tests Test 04/15/17 13:35 04/15/17 17:00 04/15/17 19:15 04/16/17 07:00 Hemoglobin 10.2 L Hematocrit 33.2 L Lactic Acid Level 1.6 Troponin I 0.225 *H Blood Gas Specimen Source Blood arterial Arterial Blood Date Drawn 04/16/2017 7:30:24 AM Arterial Blood pH (Temp corrected) 7.467 H Arterial Blood pCO2 (Temp correct) 33.6 L Arterial Blood pO2 (Temp corrected) 80.2 Arterial Blood HCO3 23.7 Arterial Blood Base Excess 0.4 Arterial Blood Oxygen Saturation 95.2 Brant Test ACCEPTAB Arterial Blood Gas Puncture Site Left Radial Arterial Blood Carboxyhemoglobin 0.3 Arterial Blood Methemoglobin 0.4 Blood Gas A-a O2 Differential 94.2 H Oxyhemoglobin Percent 94.5 Total Hemoglobin 10.8 L Blood Gas Temperature 37.0 Blood Gas Respiration Rate 12.0 Blood Gas Actual Respiration Rate 24 Blood Gas Modality VENT - AC FiO2 30.0 Blood Gas Tidal Volume 450.0 Blood Gas Low PEEP Setting 5.0 Blood Gas Notified Whom RH Blood Gas Notified Time 04/16/2017 8:07:54 AM Medications Medications Current Medications Cefepime HCl (Maxipime 2gm/50 ml (Pmx)) 50 ml @ 100 mls/hr Q12 IVPB Last administered on 04/15/17 21:37; Admin Dose 100 MLS/HR; Start 04/14/17 at 21:00 Acetaminophen (Tylenol Tab) 650 mg Q6H PRN PO PAIN LEVEL 1-3 OR FEVER Last administered on 04/15/17 22:41; Admin Dose 650 MG; Start 04/14/17 at 17:30; Stop 04/16/17 at 09:00 Pantoprazole (Protonix Iv) 40 mg DAILY@06 IV Last administered on 04/16/17 05: 58; Admin Dose 40 MG; Start 04/15/17 at 06:00 Atorvastatin Calcium (Lipitor) 40 mg QHS GTB Last administered on 04/15/17 21: 35; Admin Dose 40 MG; Start 04/14/17 at 21:00 Bisacodyl (Dulcolax Supp) 10 mg Q2D [place] ; Start 04/14/17 at 17:30 Calcium Carbonate (Oyster Shell Calcium) 1.25 gm DAILY GTB Last administered on 04/15/17 08:51; Admin Dose 1.25 GM; Start 04/15/17 at 09:00 Chlorhexidine Gluconate (Peridex) 15 ml Q12 MM Last administered on 04/15/17 21:46; Admin Dose 15 ML; Start 04/14/17 at 21:00 Digoxin (Digoxin) 0.125 mg Q2D@13 GTB Last administered on 04/14/17 23:44; Admin Dose 0.125 MG; Start 04/14/17 at 19:00 Diltiazem HCl (Cardizem Sr) 60 mg BID PO Last administered on 04/15/17 08:04; Admin Dose 60 MG; Start 04/14/17 at 21:00 Labetalol HCl (Normodyne) 50 mg Q6 GTB Last administered on 04/16/17 06:03; Admin Dose 50 MG; Start 04/14/17 at 19:00 Losartan Potassium (Cozaar) 100 mg DAILY GTB Last administered on 04/15/17 08: 03; Admin Dose 100 MG; Start 04/15/17 at 00:30 Magnesium Hydroxide (Milk Of Mag) 30 ml DAILY GTB Last administered on 08:51; Admin Dose 30 ML; Start 04/15/17 at 09:00 Metoprolol Tartrate (Lopressor) 50 mg BID GTB Last administered on 04/15/17 21 :36; Admin Dose 50 MG; Start 04/14/17 at 21:00 Ondansetron HCl (Zofran Tab) 4 mg Q6H PRN GTB NAUSEA AND/OR VOMITING; Start at 17:30 Sodium Biphosphate/ Sodium Phosphate (Fleet Enema Pediatric) 66.6 ml Q3D PRN [place] CONSTIPATION; Start 04/14/17 at 17:30 Spironolactone 25 mg 25 mg BID GTB ; Start 04/14/17 at 21:00; Status Future Hold Vancomycin HCl 250 ml @ 125 mls/hr Q24H IVPB Last administered on 04/16/17 02 :53; Admin Dose 125 MLS/HR; Start 04/15/17 at 03:00 Dextrose (D5W) 1,000 ml @ 50 mls/hr Q20H IV Last administered on 04/16/17 05: 57; Admin Dose 50 MLS/HR; Start 04/15/17 at 09:00 Clonidine (Catapres) 0.1 mg Q6H PRN GTB SBP >170 Last administered on 06:16; Admin Dose 0.1 MG; Start 04/15/17 at 19:00 Nitroglycerin (Nitroglycerin 2% Oint) 1 inch Q8 PRN TD SBP >170 Last administered on 04/15/17 22:44; Admin Dose 1 INCH; Start 04/15/17 at 19:00 Hydralazine HCl (Apresoline) 50 mg Q8 PO ; Start 04/16/17 at 14:00 Acetaminophen (Tylenol Tab) 650 mg TID PO ; Start 04/16/17 at 09:00 LETICIA MCWILLIAMS MD Apr 16, 2017 09:07
[2017-04-16] MEDS: SPIRONOLACTONE 25 MG TAB GTB SCH ×2 (09:29→21:23)
[2017-04-16] MEDS: CEFEPIME 2GM/50 ML (PMX) 50 ML IVPB SCH (09:29)
[2017-04-16] MEDS: FUROSEMIDE 40 MG INJ IV SCH (09:32)
[2017-04-16] MEDS: NITROGLYCERIN 2% 1 GM OINT PKT TD PRN (09:32)
[2017-04-16 11:09] LABS: ADD SCAN DIFF NO
[2017-04-16 11:23] LABS: ABNORMAL IP MESSAGE 1; BASOPHIL # 0.1 10^3/ul (0.0-0.1); BASOPHILS % 1.1 % (0.0-2.0); EOSINOPHILS # 0.4 10^3/ul (0.0-0.5); EOSINOPHILS % 7.4 % (0.0-7.0); HEMATOCRIT 31.6 % (37.0-47.0); HEMOGLOBIN 9.7 g/dl (12.0-16.0); LYMPHOCYTES # 0.6 10^3/ul (0.8-2.9); LYMPHOCYTES % 10.8 % (15.0-51.0); MEAN CORPUSCULAR HGB CONC 30.7 g/dl (32.0-37.0); MEAN CORPUSCULAR VOLUME 94.3 fl (82.0-101.0); MEAN PLATELET VOLUME 10.7 fl (7.4-10.4); MONOCYTE # 0.4 10^3/ul (0.3-0.9); MONOCYTES % 7.6 % (0.0-11.0); NEUTROPHIL # 3.8 10^3/ul (1.6-7.5); NEUTROPHILS % 72.5 % (39.0-77.0); PLATELET COUNT 164 10^3/UL (140-415); RED BLOOD COUNT 3.35 10^6/ul (4.20-5.40); RED CELL DISTRIBUTION WIDTH 17.9 % (11.5-14.5); WHITE BLOOD COUNT 5.3 10^3/ul (4.8-10.8)
--- NOTE | 2017-04-16 11:34 | CONS ---
Date/Time of Note Date/Time of Note DATE: 04/16/17 TIME: 11:33 Consult Date/Type/Reason Admit Date/Time Apr 14, 2017 at 17:19 Initial Consult Date 04/15/17 Type of Consultation: Pulmonary Subjective Patient comfortable no new events Objective Vital Signs Date Time Temp Pulse Resp B/P Pulse Ox O2 Delivery O2 Flow Rate FiO2 04/16/17 08:40 59 04/16/17 07:49 98.3 16 174/64 100 04/16/17 04:24 30 04/15/17 08:44 Mechanical Ventilator 04/14/17 17:00 10.0 Intake and Output 04/15/17 04/15/17 04/16/17 15:00 23:00 07:00 Intake Total 100 ml 700 ml 900 ml Output Total 450 ml 550 ml 600 ml Balance -350 ml 150 ml 300 ml Exam PHYSICAL EXAMINATION GENERAL: Elderly gentleman, on mechanical ventilation via tracheostomy VITAL SIGNS: see below. HEENT: Pupils equal, round, and reactive to light. Tracheostomy site clean and intact. CARDIAC: S1, S2, 1/6 systolic ejection murmur CHEST: Diminished air entry bilaterally. ABDOMEN: Mildly distended. Bowel sounds present no guarding or rebound EXTREMITIES: No cyanosis, clubbing edema +1 NEUROLOGIC: Generalized weakness Results/Medications Result Diagram: 04/16/17 1030 04/15/17 0541 Results 24 hrs Laboratory Tests Test 04/15/17 13:35 04/15/17 17:00 04/15/17 19:15 04/16/17 07:00 Hemoglobin 10.2 L Hematocrit 33.2 L Lactic Acid Level 1.6 Troponin I 0.225 *H Blood Gas Specimen Source Blood arterial Arterial Blood Date Drawn 04/16/2017 7:30:24 AM Arterial Blood pH (Temp corrected) 7.467 H Arterial Blood pCO2 (Temp correct) 33.6 L Arterial Blood pO2 (Temp corrected) 80.2 Arterial Blood HCO3 23.7 Arterial Blood Base Excess 0.4 Arterial Blood Oxygen Saturation 95.2 Brant Test ACCEPTAB Arterial Blood Gas Puncture Site Left Radial Arterial Blood Carboxyhemoglobin 0.3 Arterial Blood Methemoglobin 0.4 Blood Gas A-a O2 Differential 94.2 H Oxyhemoglobin Percent 94.5 Total Hemoglobin 10.8 L Blood Gas Temperature 37.0 Blood Gas Respiration Rate 12.0 Blood Gas Actual Respiration Rate 24 Blood Gas Modality VENT - AC FiO2 30.0 Blood Gas Tidal Volume 450.0 Blood Gas Low PEEP Setting 5.0 Blood Gas Notified Whom RH Blood Gas Notified Time 04/16/2017 8:07:54 AM Test 04/16/17 10:30 White Blood Count 5.3 Red Blood Count 3.35 L Hemoglobin 9.7 L Hematocrit 31.6 L Mean Corpuscular Volume 94.3 Mean Corpuscular Hemoglobin 29.0 Mean Corpuscular Hemoglobin Concent 30.7 L Red Cell Distribution Width 17.9 H Platelet Count 164 Mean Platelet Volume 10.7 H Neutrophils % 72.5 Lymphocytes % 10.8 L Monocytes % 7.6 Eosinophils % 7.4 H Basophils % 1.1 Nucleated Red Blood Cells % 0.0 Neutrophils # 3.8 Lymphocytes # 0.6 L Monocytes # 0.4 Eosinophils # 0.4 Basophils # 0.1 Nucleated Red Blood Cells # 0.0 Medications Current Medications Pantoprazole (Protonix Iv) 40 mg DAILY@06 IV Last administered on 04/16/17 05: 58; Admin Dose 40 MG; Start 04/15/17 at 06:00 Atorvastatin Calcium (Lipitor) 40 mg QHS GTB Last administered on 04/15/17 21: 35; Admin Dose 40 MG; Start 04/14/17 at 21:00 Bisacodyl (Dulcolax Supp) 10 mg Q2D [place] ; Start 04/14/17 at 17:30 Calcium Carbonate (Oyster Shell Calcium) 1.25 gm DAILY GTB Last administered on 04/16/17 09:06; Admin Dose 1.25 GM; Start 04/15/17 at 09:00 Chlorhexidine Gluconate (Peridex) 15 ml Q12 MM Last administered on 04/16/17 09:05; Admin Dose 15 ML; Start 04/14/17 at 21:00 Diltiazem HCl (Cardizem Sr) 60 mg BID PO Last administered on 04/16/17 09:08; Admin Dose 60 MG; Start 04/14/17 at 21:00 Labetalol HCl (Normodyne) 50 mg Q6 GTB Last administered on 04/16/17 06:03; Admin Dose 50 MG; Start 04/14/17 at 19:00 Losartan Potassium (Cozaar) 100 mg DAILY GTB Last administered on 04/16/17 09: 06; Admin Dose 100 MG; Start 04/15/17 at 00:30 Magnesium Hydroxide (Milk Of Mag) 30 ml DAILY GTB Last administered on 09:05; Admin Dose 30 ML; Start 04/15/17 at 09:00 Metoprolol Tartrate (Lopressor) 50 mg BID GTB Last administered on 04/16/17 09 :08; Admin Dose 50 MG; Start 04/14/17 at 21:00 Ondansetron HCl (Zofran Tab) 4 mg Q6H PRN GTB NAUSEA AND/OR VOMITING; Start at 17:30 Sodium Biphosphate/ Sodium Phosphate (Fleet Enema Pediatric) 66.6 ml Q3D PRN [place] CONSTIPATION; Start 04/14/17 at 17:30 Spironolactone 25 mg 25 mg BID GTB Last administered on 04/16/17 09:29; Admin Dose 25 MG; Start 04/14/17 at 21:00; Status Future hold Vancomycin HCl 250 ml @ 125 mls/hr Q24H IVPB Last administered on 04/16/17 02 :53; Admin Dose 125 MLS/HR; Start 04/15/17 at 03:00 Dextrose (D5W) 1,000 ml @ 50 mls/hr Q20H IV Last administered on 04/16/17 05: 57; Admin Dose 50 MLS/HR; Start 04/15/17 at 09:00 Clonidine (Catapres) 0.1 mg Q6H PRN GTB SBP >170 Last administered on 06:16; Admin Dose 0.1 MG; Start 04/15/17 at 19:00 Nitroglycerin (Nitroglycerin 2% Oint) 1 inch Q8 PRN TD SBP >170 Last administered on 04/16/17 09:32; Admin Dose 1 INCH; Start 04/15/17 at 19:00 Hydralazine HCl (Apresoline) 50 mg Q8 PO ; Start 04/16/17 at 14:00 Acetaminophen (Tylenol Tab) 650 mg TID PO Last administered on 04/16/17 09:06 ; Admin Dose 650 MG; Start 04/16/17 at 09:00 Furosemide 40 mg 40 mg DAILY IV Last administered on 04/16/17 09:32; Admin Dose 40 MG; Start 04/16/17 at 09:30 Cefepime HCl (Maxipime 1gm/50 ml (Pmx)) 50 ml @ 100 mls/hr Q24H IVPB ; Start at 09:00 Assessment/Plan Chief Complaint/Hosp Course Assessment 1. Anemia rule out GI bleed, H&H currently stable 2. Vent dependent respiratory failure 3. History of dysphagia with G-tube 4. History of UTI gram-positive bacteremia 5. Hypertensive urgency Plan 1. Continue mechanical ventilation ABG noted. 2. Chest x-ray reviewed no further action needed. 3. Serial H&H monitor for drop in hemoglobin 4. GI recommendations. 6. DVT and GI prophylaxis Transfer back to group home facility okay from pulmonary standpoint Problems: MELBA SEVERINO MD, [facility] Apr 16, 2017 11:34
[2017-04-16 11:40] LABS: CALCIUM 8.9 mg/dl (8.4-10.2); CREATININE 0.69 mg/dl (0.44-1.00); MAGNESIUM 2.1 mg/dl (1.7-2.5); PHOSPHORUS 3.1 mg/dl (2.5-4.9)
--- NOTE | 2017-04-16 13:32 | RADRPT ---
PROCEDURE: XR Chest. CLINICAL INDICATION: Shortness of breath. TECHNIQUE: Single frontal view. COMPARISON: 04/14/2017. FINDINGS: The tracheostomy tube is in satisfactory position. There is bibasilar atelectasis or pneumonia, sli ghtly worse than seen previously. The lungs are otherwise clear. The heart is enlarged. There is calcification in the aorta consistent with atherosclerosis. There is no pleural effusion. There is no pneumothorax. IMPRESSION: 1. Slightly worse appearance of the lungs. 2. No other change from 04/14/2017. RPTAT: QQ .Nash Hudson MD, MD Date Time Electronically viewed and signed by .Nash Hudson MD, on 04/16/2017 13:32 .R/
[2017-04-16] MEDS ORDERED: POTASSIUM CHLORIDE 20 MEQ POWDER FOR ORAL SOLN GTB ONE (15:30)
[2017-04-16] MEDS: ERTAPENEM SODIUM 1 GM in SOD CHLORIDE 0.9% 100 ML IVPB SCH (16:10)
[2017-04-16] MEDS: BISACODYL 10 MG SUPP PR SCH (16:35)
[2017-04-16] MEDS ORDERED: PHENYLephrine (100 MCG/ML) 5ML SYG ONE (16:56)
[2017-04-16] MEDS ORDERED: EPHEDrine SULFATE 50 MG/5 ML SYG ONE (16:56)
[2017-04-16] MEDS ORDERED: LIDOCAINE 2% (SDV) 5 ML INJ ONE (16:56)
[2017-04-16] MEDS ORDERED: FENTAnyl 50 MCG/ML VIAL ONE (16:56)
[2017-04-16] MEDS ORDERED: PROPOFOL 20 ML ONE (16:56)
[2017-04-16] MEDS ORDERED: LABETALOL HCL 20MG INJ IV PRN (18:00)
[2017-04-16] MEDS ORDERED: EPHEDrine SULFATE 50 MG/5 ML SYG IV PRN (18:00)
[2017-04-16] MEDS ORDERED: FENTAnyl 50 MCG/ML VIAL IV PRN ×3 (18:00)
--- NOTE | 2017-04-16 18:20 | CONS ---
Date/Time of Note Date/Time of Note DATE: 04/16/17 TIME: 18:19 Assessment/Plan Assessment/Plan Chief Complaint/Hosp Course No acute events per report. Patient is lying comfortably in bed, she is noncommunicative, no vomiting or diarrhea per report Temperature 97.9 pulse 67 respirations 16 blood pressure 121/60 saturation 95% on FiO2 of 30 WBC 5. H&H 9.7 and 31.6 platelets 164 no shift BUN 16 creatinine 0.99 troponin 0.225 Microbiology: Blood culture on admission grew coag negative staph species, urine culture growing Morganella Klebsiella ESBL E. coli ESBL Indwelling's: Tracheostomy PEG Lazar peripheral IV Antimicrobials: Invanz vancomycin Physical examination: Chronically ill-appearing elderly woman who is in no distress. Head atraumatic, normocephalic, sclera nonicteric. Bugle mucosa dry. Neck is supple, tracheostomy present. Chest rise symmetrical, breath sounds diminished basis. Heart: S1-S2. Abdomen soft, bowel tones present. Extremities without cyanosis Assessment: 1. Coag negative staph bacteremia, likely contaminant 2. Polymicrobial UTI 2. Healthcare associated pneumonia 4. Acute GI bleed/anemia 5. Hypertension 6. Coronary artery disease history of atrial fibrillation 7. Chronic encephalopathy status post CVA Plan: Hemodynamically stable continue antibiotics, repeat blood cultures, follow recommendations of consultants Discussed with staff Problems: Consultation Date/Type/Reason Admit Date/Time Apr 14, 2017 at 17:19 Initial Consult Date 04/15/17 Type of Consultation: ID Exam/Review of Systems Vital Signs Vitals Vital Signs Date Time Temp Pulse Resp B/P Pulse Ox O2 Delivery O2 Flow Rate FiO2 04/16/17 18:03 73 14 140/67 100 Mechanical Ventilator 04/16/17 17:30 100 04/16/17 17:25 97.5 04/14/17 17:00 10.0 Intake and Output 04/15/17 04/15/17 04/16/17 15:00 23:00 07:00 Intake Total 100 ml 700 ml 900 ml Output Total 450 ml 550 ml 600 ml Balance -350 ml 150 ml 300 ml Results Result Diagram: 04/16/17 1030 04/16/17 1030 Results 24 hrs Laboratory Tests Test 04/15/17 19:15 04/16/17 07:00 04/16/17 10:30 Troponin I 0.225 *H Blood Gas Specimen Source Blood arterial Arterial Blood Date Drawn 04/16/2017 7:30:24 AM Arterial Blood pH (Temp corrected) 7.467 H Arterial Blood pCO2 (Temp correct) 33.6 L Arterial Blood pO2 (Temp corrected) 80.2 Arterial Blood HCO3 23.7 Arterial Blood Base Excess 0.4 Arterial Blood Oxygen Saturation 95.2 Brant Test ACCEPTAB Arterial Blood Gas Puncture Site Left Radial Arterial Blood Carboxyhemoglobin 0.3 Arterial Blood Methemoglobin 0.4 Blood Gas A-a O2 Differential 94.2 H Oxyhemoglobin Percent 94.5 Total Hemoglobin 10.8 L Blood Gas Temperature 37.0 Blood Gas Respiration Rate 12.0 Blood Gas Actual Respiration Rate 24 Blood Gas Modality VENT - AC FiO2 30.0 Blood Gas Tidal Volume 450.0 Blood Gas Low PEEP Setting 5.0 Blood Gas Notified Whom RH Blood Gas Notified Time 04/16/2017 8:07:54 AM White Blood Count 5.3 Red Blood Count 3.35 L Hemoglobin 9.7 L Hematocrit 31.6 L Mean Corpuscular Volume 94.3 Mean Corpuscular Hemoglobin 29.0 Mean Corpuscular Hemoglobin Concent 30.7 L Red Cell Distribution Width 17.9 H Platelet Count 164 Mean Platelet Volume 10.7 H Neutrophils % 72.5 Lymphocytes % 10.8 L Monocytes % 7.6 Eosinophils % 7.4 H Basophils % 1.1 Nucleated Red Blood Cells % 0.0 Neutrophils # 3.8 Lymphocytes # 0.6 L Monocytes # 0.4 Eosinophils # 0.4 Basophils # 0.1 Nucleated Red Blood Cells # 0.0 Sodium Level 140 Potassium Level 3.0 L Chloride Level 103 Carbon Dioxide Level 26 Anion Gap 14 Blood Urea Nitrogen 16 Creatinine 0.69 Glucose Level 113 Calcium Level 8.9 Phosphorus Level 3.1 Magnesium Level 2.1 Medications Medications Current Medications Pantoprazole (Protonix Iv) 40 mg DAILY@06 IV Last administered on 04/16/17 05: 58; Admin Dose 40 MG; Start 04/15/17 at 06:00 Atorvastatin Calcium (Lipitor) 40 mg QHS GTB Last administered on 04/15/17 21: 35; Admin Dose 40 MG; Start 04/14/17 at 21:00 Bisacodyl (Dulcolax Supp) 10 mg Q2D [place] Last administered on 04/16/17 16:35; Admin Dose 10 MG; Start 04/14/17 at 17:30 Calcium Carbonate (Oyster Shell Calcium) 1.25 gm DAILY GTB Last administered on 04/16/17 09:06; Admin Dose 1.25 GM; Start 04/15/17 at 09:00 Chlorhexidine Gluconate (Peridex) 15 ml Q12 MM Last administered on 04/16/17 09:05; Admin Dose 15 ML; Start 04/14/17 at 21:00 Diltiazem HCl (Cardizem Sr) 60 mg BID PO Last administered on 04/16/17 09:08; Admin Dose 60 MG; Start 04/14/17 at 21:00 Labetalol HCl (Normodyne) 50 mg Q6 GTB Last administered on 04/16/17 13:11; Admin Dose 50 MG; Start 04/14/17 at 19:00 Losartan Potassium (Cozaar) 100 mg DAILY GTB Last administered on 04/16/17 09: 06; Admin Dose 100 MG; Start 04/15/17 at 00:30 Magnesium Hydroxide (Milk Of Mag) 30 ml DAILY GTB Last administered on 09:05; Admin Dose 30 ML; Start 04/15/17 at 09:00 Metoprolol Tartrate (Lopressor) 50 mg BID GTB Last administered on 04/16/17 09 :08; Admin Dose 50 MG; Start 04/14/17 at 21:00 Ondansetron HCl (Zofran Tab) 4 mg Q6H PRN GTB NAUSEA AND/OR VOMITING; Start at 17:30 Sodium Biphosphate/ Sodium Phosphate (Fleet Enema Pediatric) 66.6 ml Q3D PRN [place] CONSTIPATION; Start 04/14/17 at 17:30 Spironolactone 25 mg 25 mg BID GTB Last administered on 04/16/17 09:29; Admin Dose 25 MG; Start 04/14/17 at 21:00; Status Future hold Vancomycin HCl 250 ml @ 125 mls/hr Q24H IVPB Last administered on 04/16/17 02 :53; Admin Dose 125 MLS/HR; Start 04/15/17 at 03:00 Dextrose (D5W) 1,000 ml @ 50 mls/hr Q20H IV Last administered on 04/16/17 05: 57; Admin Dose 50 MLS/HR; Start 04/15/17 at 09:00 Clonidine (Catapres) 0.1 mg Q6H PRN GTB SBP >170 Last administered on 06:16; Admin Dose 0.1 MG; Start 04/15/17 at 19:00 Nitroglycerin (Nitroglycerin 2% Oint) 1 inch Q8 PRN TD SBP >170 Last administered on 04/16/17 09:32; Admin Dose 1 INCH; Start 04/15/17 at 19:00 Hydralazine HCl (Apresoline) 50 mg Q8 PO Last administered on 04/16/17 13:12; Admin Dose 50 MG; Start 04/16/17 at 14:00 Acetaminophen (Tylenol Tab) 650 mg TID PO Last administered on 04/16/17 13:11 ; Admin Dose 650 MG; Start 04/16/17 at 09:00 Furosemide 40 mg 40 mg DAILY IV Last administered on 04/16/17 09:32; Admin Dose 40 MG; Start 04/16/17 at 09:30 Ertapenem/Sodium Chloride (Invanz/NS) 100 ml @ 200 mls/hr Q24H IVPB Last administered on 04/16/17 16:10; Admin Dose 200 MLS/HR; Start 04/16/17 at 16:00 Miscellaneous Information (*Rx Drug Level Order Reminder*) VANCO TROUGH @ 0, 200 ON... ONCE ONCE XX ; Start 04/17/17 at 02:00; Stop 04/17/17 at 02:01 NIKOLAS WATTS NP Apr 16, 2017 18:20
[2017-04-16] MEDS: ATORVASTATIN 40 MG TAB GTB SCH (21:25)
[2017-04-17] VITALS (29 sets, daily range): BP systolic 103–168; BP diastolic 47–91; PULSE 61–94; RESP 16–25
[2017-04-17] MEDS: LABETALOL 100 MG TAB GTB SCH ×4 (00:11→18:11)
[2017-04-17] MEDS: DEXTROSE 5% 1,000 ML IV SCH (01:02)
[2017-04-17 02:24] LABS: ADD SCAN DIFF NO
[2017-04-17 02:35] LABS: ABNORMAL IP MESSAGE 1; BASOPHIL # 0.1 10^3/ul (0.0-0.1); BASOPHILS % 0.8 % (0.0-2.0); EOSINOPHILS # 0.3 10^3/ul (0.0-0.5); EOSINOPHILS % 5.7 % (0.0-7.0); HEMOGLOBIN 10.2 g/dl (12.0-16.0); LYMPHOCYTES # 0.5 10^3/ul (0.8-2.9); MEAN CORPUSCULAR HEMOGLOBIN 27.7 pg (29.0-33.0); MEAN CORPUSCULAR VOLUME 92.4 fl (82.0-101.0); MEAN PLATELET VOLUME 10.6 fl (7.4-10.4); MONOCYTE # 0.4 10^3/ul (0.3-0.9); MONOCYTES % 7.4 % (0.0-11.0); NEUTROPHIL # 4.6 10^3/ul (1.6-7.5); NEUTROPHILS % 76.6 % (39.0-77.0); PLATELET COUNT 176 10^3/UL (140-415); RED BLOOD COUNT 3.68 10^6/ul (4.20-5.40)
[2017-04-17 03:01] LABS: ALBUMIN/GLOBULIN RATIO 0.68
[2017-04-17 03:03] LABS: CALCIUM 8.9 mg/dl (8.4-10.2); CREATININE 0.77 mg/dl (0.44-1.00); MAGNESIUM 2.2 mg/dl (1.7-2.5); PHOSPHORUS 3.2 mg/dl (2.5-4.9); POTASSIUM 3.7 mmol/L (3.5-5.1)
[2017-04-17 03:24] LABS: ALBUMIN 3.1 g/dl (3.3-4.9); BILIRUBIN,INDIRECT 0.4 mg/dl (0-1.1); BILIRUBIN,TOTAL 0.4 mg/dl (0.2-1.3); CALCIUM 8.9 mg/dl (8.4-10.2); CREATININE 0.8 mg/dl (0.44-1.00); POTASSIUM 3.7 mmol/L (3.5-5.1); TOTAL PROTEIN 7.6 g/dl (6.1-8.1)
[2017-04-17] MEDS: VANCOMYCIN 1 GM in NS 250 ML IVPB SCH (03:41)
[2017-04-17] MEDS: PANTOPRAZOLE 40 MG INJ IV SCH (05:45)
[2017-04-17] MEDS: LEVOTHYROXINE 125 MCG TAB GTB SCH (06:23)
--- NOTE | 2017-04-17 08:09 | PN ---
Date/Time of Note Date/Time of Note DATE: 04/17/17 TIME: 08:07 Assessment/Plan VTE Prophylaxis VTE Prophylaxis Intervention: other Lines/Catheters IV Catheter Type (from Nrs): Saline Lock Urinary Cath still in place: Yes Reason Cath still needed: other (indicate) Assessment/Plan Assessment/Plan 1. Gastrointestinal bleed. -The patient's stools were noted to be guaiac positive at an outside facility, and she is anemic. - Eliquis is on hold now. -Follow-up with GI rec 2. Sepsis secondary to gram-positive bacteremia: -Follow-up with infectious disease 3. Afib: ON HR control off of dig now cont betablocker and cardizem. off of eliquis due to bleeding concerns cont tele 4. Ventilator dependent respiratory failure. cont resp care. f/u with pulm 5. Dysphagia status post PEG. 6. HTN: cont betablocker, hydralazine caridizem cont aldactone lasix 7. Congestive heart failure/. fluid overload cont ARB LASIX as needed/ tolerated. 8. 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 Continue to monitor. 9. History of cerebrovascular accident. Continue medical management. Subjective 24 Hr Interval Summary Free Text/Dictation d/w staff and rhythm was reviewed. pt remains in Afib. HR has been on the low side but no long pauses seen pt remains nonverbal on vent s/p trach. OBJECTIVE: General: no acute distress S/P trach on vent HEENT: NC/AT. pupils are equal. round. NECK: s/p trach. . no stridor. CV: irregularly irregular. . systolic murmur; no gallop or rubs. PULM: no wheezing anteriorly. GI: SOFT, NT, ND, no rebound or guarding Extremity: no significant LE edema. no clubbing. neuro: awake and appears alert. Psych: calm and pleasant rectal: deferred Derm: no active bleedign Exam/Review of Systems Vital Signs Vitals Vital Signs Date Time Temp Pulse Resp B/P Pulse Ox O2 Delivery O2 Flow Rate FiO2 04/17/17 07:50 98.6 86 16 149/57 97 04/17/17 05:30 40 04/16/17 18:03 Mechanical Ventilator 04/14/17 17:00 10.0 Intake and Output 04/16/17 04/16/17 04/17/17 15:00 23:00 07:00 Intake Total 750 ml 750 ml Output Total 650 ml 400 ml Balance 100 ml 350 ml Results Result Diagram: 04/17/17 0200 04/17/17 0200 Results 24 hrs Laboratory Tests Test 04/16/17 10:30 04/16/17 19:00 04/17/17 02:00 04/17/17 06:28 White Blood Count 5.3 6.0 Red Blood Count 3.35 L 3.68 L Hemoglobin 9.7 L 10.2 L Hematocrit 31.6 L 34.0 L Mean Corpuscular Volume 94.3 92.4 Mean Corpuscular Hemoglobin 29.0 27.7 L Mean Corpuscular Hemoglobin Concent 30.7 L 30.0 L Red Cell Distribution Width 17.9 H 18.0 H Platelet Count 164 176 Mean Platelet Volume 10.7 H 10.6 H Neutrophils % 72.5 76.6 Lymphocytes % 10.8 L 9.0 L Monocytes % 7.6 7.4 Eosinophils % 7.4 H 5.7 Basophils % 1.1 0.8 Nucleated Red Blood Cells % 0.0 0.0 Neutrophils # 3.8 4.6 Lymphocytes # 0.6 L 0.5 L Monocytes # 0.4 0.4 Eosinophils # 0.4 0.3 Basophils # 0.1 0.1 Nucleated Red Blood Cells # 0.0 0.0 Sodium Level 140 141 Potassium Level 3.0 L 3.7 Chloride Level 103 104 Carbon Dioxide Level 26 25 Anion Gap 14 16 Blood Urea Nitrogen 16 15 Creatinine 0.69 0.80 Glucose Level 113 112 Calcium Level 8.9 8.9 Phosphorus Level 3.1 3.2 Magnesium Level 2.1 2.2 Lactic Acid Level 1.1 Total Bilirubin 0.4 Direct Bilirubin 0.00 Indirect Bilirubin 0.4 Aspartate Amino Transf (AST/SGOT) 24 Alanine Aminotransferase (ALT/SGPT) 34 Alkaline Phosphatase 106 Total Protein 7.6 Albumin 3.1 L Globulin 4.50 H Albumin/Globulin Ratio 0.68 Vancomycin Level Trough 15.2 Digoxin Level 0.7 L Medications Medications Current Medications Pantoprazole (Protonix Iv) 40 mg DAILY@06 IV Last administered on 04/17/17t 05: 45; Admin Dose 40 MG; Start 04/15/17 at 06:00 Atorvastatin Calcium (Lipitor) 40 mg QHS GTB Last administered on 04/16/17 21: 25; Admin Dose 40 MG; Start 04/14/17 at 21:00 Bisacodyl (Dulcolax Supp) 10 mg Q2D [place] Last administered on 04/16/17 16:35; Admin Dose 10 MG; Start 04/14/17 at 17:30 Calcium Carbonate (Oyster Shell Calcium) 1.25 gm DAILY GTB Last administered on 04/16/17 09:06; Admin Dose 1.25 GM; Start 04/15/17 at 09:00 Chlorhexidine Gluconate (Peridex) 15 ml Q12 MM Last administered on 04/16/17 21:23; Admin Dose 15 ML; Start 04/14/17 at 21:00 Diltiazem HCl (Cardizem Sr) 60 mg BID PO Last administered on 04/16/17 21:25; Admin Dose 60 MG; Start 04/14/17 at 21:00 Labetalol HCl (Normodyne) 50 mg Q6 GTB Last administered on 04/17/17 05:46; Admin Dose 50 MG; Start 04/14/17 at 19:00 Losartan Potassium (Cozaar) 100 mg DAILY GTB Last administered on 04/16/17 09: 06; Admin Dose 100 MG; Start 04/15/17 at 00:30 Magnesium Hydroxide (Milk Of Mag) 30 ml DAILY GTB Last administered on 09:05; Admin Dose 30 ML; Start 04/15/17 at 09:00 Metoprolol Tartrate (Lopressor) 50 mg BID GTB Last administered on 04/16/17 21 :24; Admin Dose 50 MG; Start 04/14/17 at 21:00 Ondansetron HCl (Zofran Tab) 4 mg Q6H PRN GTB NAUSEA AND/OR VOMITING; Start at 17:30 Sodium Biphosphate/ Sodium Phosphate (Fleet Enema Pediatric) 66.6 ml Q3D PRN [place] CONSTIPATION; Start 04/14/17 at 17:30 Spironolactone 25 mg 25 mg BID GTB Last administered on 04/16/17 21:23; Admin Dose 25 MG; Start 04/14/17 at 21:00; Status Future hold Vancomycin HCl 250 ml @ 125 mls/hr Q24H IVPB Last administered on 04/17/17 03 :41; Admin Dose 125 MLS/HR; Start 04/15/17 at 03:00 Dextrose (D5W) 1,000 ml @ 50 mls/hr Q20H IV Last administered on 04/17/17 01: 02; Admin Dose 50 MLS/HR; Start 04/15/17 at 09:00 Clonidine (Catapres) 0.1 mg Q6H PRN GTB SBP >170 Last administered on 06:16; Admin Dose 0.1 MG; Start 04/15/17 at 19:00 Nitroglycerin (Nitroglycerin 2% Oint) 1 inch Q8 PRN TD SBP >170 Last administered on 04/16/17 09:32; Admin Dose 1 INCH; Start 04/15/17 at 19:00 Hydralazine HCl (Apresoline) 50 mg Q8 PO Last administered on 04/17/17 05:45; Admin Dose 50 MG; Start 04/16/17 at 14:00 Acetaminophen (Tylenol Tab) 650 mg TID PO Last administered on 04/16/17 21:25 ; Admin Dose 650 MG; Start 04/16/17 at 09:00 Furosemide 40 mg 40 mg DAILY IV Last administered on 04/16/17 09:32; Admin Dose 40 MG; Start 04/16/17 at 09:30 Ertapenem/Sodium Chloride (Invanz/NS) 100 ml @ 200 mls/hr Q24H IVPB Last administered on 04/16/17 16:10; Admin Dose 200 MLS/HR; Start 04/16/17 at 16:00 LETICIA MCWILLIAMS MD Apr 17, 2017 08:09
[2017-04-17] MEDS ORDERED: CEFEPIME 1GM/50 ML IVPB SCH (09:00)
[2017-04-17] MEDS: CHLORHEXIDINE GLUCONATE 15 ML UD CUP MM SCH ×2 (09:07→20:43)
[2017-04-17] MEDS: MAGNESIUM HYDROXIDE 30ML CUP GTB SCH (09:07)
[2017-04-17] MEDS: SPIRONOLACTONE 25 MG TAB GTB SCH ×2 (09:08→20:43)
[2017-04-17] MEDS: ACETAMINOPHEN 325 MG TAB PO SCH ×3 (09:08→20:44)
[2017-04-17] MEDS: METOPROLOL 50 MG TAB GTB SCH ×2 (09:08→20:43)
[2017-04-17] MEDS: DILTIAZEM (SR) 60 MG CAP PO SCH ×2 (09:08→20:44)
[2017-04-17] MEDS: CALCIUM CARBONATE 1.25 GM TAB GTB SCH (09:08)
[2017-04-17] MEDS: LOSARTAN 50 MG TAB GTB SCH (09:09)
[2017-04-17] MEDS: FUROSEMIDE 40 MG INJ IV SCH (09:17)
--- NOTE | 2017-04-17 13:55 | CONS ---
Date/Time of Note Date/Time of Note DATE: 04/17/17 TIME: 13:53 Assessment/Plan Assessment/Plan Chief Complaint/Hosp Course No acute changes patient is lying comfortably in bed Temperature 98.4 pulse 74 respirations 20 blood pressure 162/69 saturation 99 on vent WBC 6 H&H 10.2 and 34 platelets 176 no shift BUN 15 creatinine 0.80 Microbiology: Blood culture growing coag negative staph species on admission urine culture growing Morganella Klebsiella ESBL E. coli ESBL Antimicrobials Invanz vancomycin Indwelling's: Tracheostomy PEG Lazar peripheral IV Physical examination: Chronically ill-appearing elderly woman who is in no distress. Head atraumatic, normocephalic, sclera nonicteric. Bugle mucosa dry. Neck is supple, tracheostomy present. Chest rise symmetrical, breath sounds diminished basis. Heart: S1-S2. Abdomen soft, bowel tones present. Extremities without cyanosis Assessment: 1. Coag negative staph bacteremia, likely contaminant 2. Polymicrobial UTI 2. Healthcare associated pneumonia 4. Acute GI bleed/anemia 5. Hypertension 6. Coronary artery disease history of atrial fibrillation 7. Chronic encephalopathy status post CVA Plan: Remains stable, on appropriate antibiotics, repeat blood cultures negative Discussed with staff Problems: Consultation Date/Type/Reason Admit Date/Time Apr 14, 2017 at 17:19 Initial Consult Date 04/15/17 Type of Consultation: ID Exam/Review of Systems Vital Signs Vitals Vital Signs Date Time Temp Pulse Resp B/P Pulse Ox O2 Delivery O2 Flow Rate FiO2 04/17/17 12:38 61 04/17/17 12:00 98.4 20 162/69 99 Mechanical Ventilator 04/17/17 11:30 40 04/14/17 17:00 10.0 Intake and Output 04/16/17 04/16/17 04/17/17 14:59 22:59 06:59 Intake Total 750 ml 750 ml Output Total 650 ml 400 ml Balance 100 ml 350 ml Results Result Diagram: 04/17/17 0200 04/17/17 0200 Results 24 hrs Laboratory Tests Test 04/16/17 19:00 04/17/17 02:00 04/17/17 06:28 Lactic Acid Level 1.1 White Blood Count 6.0 Red Blood Count 3.68 L Hemoglobin 10.2 L Hematocrit 34.0 L Mean Corpuscular Volume 92.4 Mean Corpuscular Hemoglobin 27.7 L Mean Corpuscular Hemoglobin Concent 30.0 L Red Cell Distribution Width 18.0 H Platelet Count 176 Mean Platelet Volume 10.6 H Neutrophils % 76.6 Lymphocytes % 9.0 L Monocytes % 7.4 Eosinophils % 5.7 Basophils % 0.8 Nucleated Red Blood Cells % 0.0 Neutrophils # 4.6 Lymphocytes # 0.5 L Monocytes # 0.4 Eosinophils # 0.3 Basophils # 0.1 Nucleated Red Blood Cells # 0.0 Sodium Level 141 Potassium Level 3.7 Chloride Level 104 Carbon Dioxide Level 25 Anion Gap 16 Blood Urea Nitrogen 15 Creatinine 0.80 Glucose Level 112 Calcium Level 8.9 Phosphorus Level 3.2 Magnesium Level 2.2 Total Bilirubin 0.4 Direct Bilirubin 0.00 Indirect Bilirubin 0.4 Aspartate Amino Transf (AST/SGOT) 24 Alanine Aminotransferase (ALT/SGPT) 34 Alkaline Phosphatase 106 Total Protein 7.6 Albumin 3.1 L Globulin 4.50 H Albumin/Globulin Ratio 0.68 Vancomycin Level Trough 15.2 Digoxin Level 0.7 L Medications Medications Current Medications Pantoprazole (Protonix Iv) 40 mg DAILY@06 IV Last administered on 04/17/17 05: 45; Admin Dose 40 MG; Start 04/15/17 at 06:00 Atorvastatin Calcium (Lipitor) 40 mg QHS GTB Last administered on 04/16/17 21: 25; Admin Dose 40 MG; Start 04/14/17 at 21:00 Bisacodyl (Dulcolax Supp) 10 mg Q2D [place] Last administered on 04/16/17 16:35; Admin Dose 10 MG; Start 04/14/17 at 17:30 Calcium Carbonate (Oyster Shell Calcium) 1.25 gm DAILY GTB Last administered on 04/17/17 09:08; Admin Dose 1.25 GM; Start 04/15/17 at 09:00 Chlorhexidine Gluconate (Peridex) 15 ml Q12 MM Last administered on 04/17/17 09:07; Admin Dose 15 ML; Start 04/14/17 at 21:00 Diltiazem HCl (Cardizem Sr) 60 mg BID PO Last administered on 04/17/17 09:08; Admin Dose 60 MG; Start 04/14/17 at 21:00 Labetalol HCl (Normodyne) 50 mg Q6 GTB Last administered on 04/17/17 12:35; Admin Dose 50 MG; Start 04/14/17 at 19:00 Losartan Potassium (Cozaar) 100 mg DAILY GTB Last administered on 04/17/17 09: 09; Admin Dose 100 MG; Start 04/15/17 at 00:30 Magnesium Hydroxide (Milk Of Mag) 30 ml DAILY GTB Last administered on 09:07; Admin Dose 30 ML; Start 04/15/17 at 09:00 Metoprolol Tartrate (Lopressor) 50 mg BID GTB Last administered on 04/17/17 09 :08; Admin Dose 50 MG; Start 04/14/17 at 21:00 Ondansetron HCl (Zofran Tab) 4 mg Q6H PRN GTB NAUSEA AND/OR VOMITING; Start at 17:30 Sodium Biphosphate/ Sodium Phosphate (Fleet Enema Pediatric) 66.6 ml Q3D PRN [place] CONSTIPATION; Start 04/14/17 at 17:30 Spironolactone 25 mg 25 mg BID GTB Last administered on 04/17/17 09:08; Admin Dose 25 MG; Start 04/14/17 at 21:00; Status Future hold Vancomycin HCl 250 ml @ 125 mls/hr Q24H IVPB Last administered on 04/17/17 03 :41; Admin Dose 125 MLS/HR; Start 04/15/17 at 03:00 Dextrose (D5W) 1,000 ml @ 50 mls/hr Q20H IV Last administered on 04/17/17 01: 02; Admin Dose 50 MLS/HR; Start 04/15/17 at 09:00 Clonidine (Catapres) 0.1 mg Q6H PRN GTB SBP >170 Last administered on 06:16; Admin Dose 0.1 MG; Start 04/15/17 at 19:00 Nitroglycerin (Nitroglycerin 2% Oint) 1 inch Q8 PRN TD SBP >170 Last administered on 04/16/17 09:32; Admin Dose 1 INCH; Start 04/15/17 at 19:00 Hydralazine HCl (Apresoline) 50 mg Q8 PO Last administered on 04/17/17 05:45; Admin Dose 50 MG; Start 04/16/17 at 14:00 Acetaminophen (Tylenol Tab) 650 mg TID PO Last administered on 04/17/17 12:34 ; Admin Dose 650 MG; Start 04/16/17 at 09:00 Furosemide 40 mg 40 mg DAILY IV Last administered on 04/17/17 09:17; Admin Dose 40 MG; Start 04/16/17 at 09:30 Ertapenem/Sodium Chloride (Invanz/NS) 100 ml @ 200 mls/hr Q24H IVPB Last administered on 04/16/17 16:10; Admin Dose 200 MLS/HR; Start 04/16/17 at 16:00 NIKOLAS WATTS NP Apr 17, 2017 13:54
--- NOTE | 2017-04-17 14:54 | CONS ---
Date/Time of Note Date/Time of Note DATE: 04/17/17 TIME: 14:53 Consult Date/Type/Reason Admit Date/Time Apr 14, 2017 at 17:19 Initial Consult Date 04/15/17 Type of Consultation: Pulmonary ICU Subjective Patient comfortable status post endoscopy Objective Vital Signs Date Time Temp Pulse Resp B/P Pulse Ox O2 Delivery O2 Flow Rate FiO2 04/17/17 14:40 67 20 97 35 04/17/17 12:00 98.4 162/69 Mechanical Ventilator 04/14/17 17:00 10.0 Intake and Output 04/16/17 04/16/17 04/17/17 15:00 23:00 07:00 Intake Total 750 ml 750 ml Output Total 650 ml 400 ml Balance 100 ml 350 ml Exam PHYSICAL EXAMINATION GENERAL: Elderly gentleman, on mechanical ventilation via tracheostomy VITAL SIGNS: see below. HEENT: Pupils equal, round, and reactive to light. Tracheostomy site clean and intact. CARDIAC: S1, S2, 1/6 systolic ejection murmur CHEST: Diminished air entry bilaterally. ABDOMEN: Mildly distended. Bowel sounds present no guarding or rebound EXTREMITIES: No cyanosis, clubbing edema +1 NEUROLOGIC: Generalized weakness Results/Medications Result Diagram: 04/17/17 0200 04/17/17 0200 Results 24 hrs Laboratory Tests Test 04/16/17 19:00 04/17/17 02:00 04/17/17 06:28 Lactic Acid Level 1.1 White Blood Count 6.0 Red Blood Count 3.68 L Hemoglobin 10.2 L Hematocrit 34.0 L Mean Corpuscular Volume 92.4 Mean Corpuscular Hemoglobin 27.7 L Mean Corpuscular Hemoglobin Concent 30.0 L Red Cell Distribution Width 18.0 H Platelet Count 176 Mean Platelet Volume 10.6 H Neutrophils % 76.6 Lymphocytes % 9.0 L Monocytes % 7.4 Eosinophils % 5.7 Basophils % 0.8 Nucleated Red Blood Cells % 0.0 Neutrophils # 4.6 Lymphocytes # 0.5 L Monocytes # 0.4 Eosinophils # 0.3 Basophils # 0.1 Nucleated Red Blood Cells # 0.0 Sodium Level 141 Potassium Level 3.7 Chloride Level 104 Carbon Dioxide Level 25 Anion Gap 16 Blood Urea Nitrogen 15 Creatinine 0.80 Glucose Level 112 Calcium Level 8.9 Phosphorus Level 3.2 Magnesium Level 2.2 Total Bilirubin 0.4 Direct Bilirubin 0.00 Indirect Bilirubin 0.4 Aspartate Amino Transf (AST/SGOT) 24 Alanine Aminotransferase (ALT/SGPT) 34 Alkaline Phosphatase 106 Total Protein 7.6 Albumin 3.1 L Globulin 4.50 H Albumin/Globulin Ratio 0.68 Vancomycin Level Trough 15.2 Digoxin Level 0.7 L Medications Current Medications Pantoprazole (Protonix Iv) 40 mg DAILY@06 IV Last administered on 04/17/17 05: 45; Admin Dose 40 MG; Start 04/15/17 at 06:00 Atorvastatin Calcium (Lipitor) 40 mg QHS GTB Last administered on 04/16/17 21: 25; Admin Dose 40 MG; Start 04/14/17 at 21:00 Bisacodyl (Dulcolax Supp) 10 mg Q2D [place] Last administered on 04/16/17 16:35; Admin Dose 10 MG; Start 04/14/17 at 17:30 Calcium Carbonate (Oyster Shell Calcium) 1.25 gm DAILY GTB Last administered on 04/17/17 09:08; Admin Dose 1.25 GM; Start 04/15/17 at 09:00 Chlorhexidine Gluconate (Peridex) 15 ml Q12 MM Last administered on 04/17/17 09:07; Admin Dose 15 ML; Start 04/14/17 at 21:00 Diltiazem HCl (Cardizem Sr) 60 mg BID PO Last administered on 04/17/17 09:08; Admin Dose 60 MG; Start 04/14/17 at 21:00 Labetalol HCl (Normodyne) 50 mg Q6 GTB Last administered on 04/17/17 12:35; Admin Dose 50 MG; Start 04/14/17 at 19:00 Losartan Potassium (Cozaar) 100 mg DAILY GTB Last administered on 04/17/17 09: 09; Admin Dose 100 MG; Start 04/15/17 at 00:30 Magnesium Hydroxide (Milk Of Mag) 30 ml DAILY GTB Last administered on 09:07; Admin Dose 30 ML; Start 04/15/17 at 09:00 Metoprolol Tartrate (Lopressor) 50 mg BID GTB Last administered on 04/17/17 09 :08; Admin Dose 50 MG; Start 04/14/17 at 21:00 Ondansetron HCl (Zofran Tab) 4 mg Q6H PRN GTB NAUSEA AND/OR VOMITING; Start at 17:30 Sodium Biphosphate/ Sodium Phosphate (Fleet Enema Pediatric) 66.6 ml Q3D PRN [place] CONSTIPATION; Start 04/14/17 at 17:30 Spironolactone 25 mg 25 mg BID GTB Last administered on 04/17/17 09:08; Admin Dose 25 MG; Start 04/14/17 at 21:00; Status Future hold Vancomycin HCl 250 ml @ 125 mls/hr Q24H IVPB Last administered on 04/17/17 03 :41; Admin Dose 125 MLS/HR; Start 04/15/17 at 03:00 Dextrose (D5W) 1,000 ml @ 50 mls/hr Q20H IV Last administered on 04/17/17 01: 02; Admin Dose 50 MLS/HR; Start 04/15/17 at 09:00 Clonidine (Catapres) 0.1 mg Q6H PRN GTB SBP >170 Last administered on 06:16; Admin Dose 0.1 MG; Start 04/15/17 at 19:00 Nitroglycerin (Nitroglycerin 2% Oint) 1 inch Q8 PRN TD SBP >170 Last administered on 04/16/17 09:32; Admin Dose 1 INCH; Start 04/15/17 at 19:00 Hydralazine HCl (Apresoline) 50 mg Q8 PO Last administered on 04/17/17 05:45; Admin Dose 50 MG; Start 04/16/17 at 14:00 Acetaminophen (Tylenol Tab) 650 mg TID PO Last administered on 04/17/17 12:34 ; Admin Dose 650 MG; Start 04/16/17 at 09:00 Furosemide 40 mg 40 mg DAILY IV Last administered on 04/17/17 09:17; Admin Dose 40 MG; Start 04/16/17 at 09:30 Ertapenem/Sodium Chloride (Invanz/NS) 100 ml @ 200 mls/hr Q24H IVPB Last administered on 04/16/17 16:10; Admin Dose 200 MLS/HR; Start 04/16/17 at 16:00 Assessment/Plan Chief Complaint/Hosp Course assessment 1. Anemia rule out GI bleed, H&H currently stable, status post endoscopy 2. Vent dependent respiratory failure 3. History of dysphagia with G-tube 4. History of UTI gram-positive bacteremia 5. Hypertensive urgency Plan 1. Continue mechanical ventilation ABG noted. 2. Chest x-ray reviewed no further action needed. 3. Serial H&H monitor for drop in hemoglobin 4. GI recommendations. Post procedure. 6. DVT and GI prophylaxis Transfer back to assisted facility okay from pulmonary standpoint Problems: MELBA SEVERINO MD, [facility] Apr 17, 2017 14:54
[2017-04-17] MEDS: ERTAPENEM SODIUM 1 GM in SOD CHLORIDE 0.9% 100 ML IVPB SCH (16:17)
--- NOTE | 2017-04-17 18:12 | CONS ---
Date/Time of Note Date/Time of Note DATE: 04/17/17 TIME: 18:11 Assessment/Plan Assessment/Plan Chief Complaint/Hosp Course 87-year-old female with history of vent dependent respiratory failure, atrial fibrillation, CVA, encephalopathy was brought to the emergency room from subacute facility for anemia and passing black colored stool. And this was verified with the staff nurse on the floor. No nausea no vomiting. No chest pain or shortness of breath. Most of the information gathered by reviewing the chart. Patient was not in the poor position to give any history. Problems: Additional Assessment/Plan Additional Assessment/Plan #1 GI bleeding with a positive stool guaiac and melanotic stool 2. Anemia 3. Atrial fibrillation on Eliquis 4. Vent dependent respiratory for 5. Hypertension 6. Hypothyroid 7. CVA 8. Encephalopathy 9. UTI Plan Resume Eliquis Monitor H&H and transfuse if hemoglobin less than 7.5 PPI Consultation Date/Type/Reason Admit Date/Time Apr 14, 2017 at 17:19 Initial Consult Date 04/15/17 Type of Consultation: Pulmonary ICU 24 HR Interval Summary Constitutional: improved, no complaints Exam/Review of Systems Vital Signs Vitals Vital Signs Date Time Temp Pulse Resp B/P Pulse Ox O2 Delivery O2 Flow Rate FiO2 04/17/17 16:33 66 04/17/17 16:06 98.1 20 109/72 99 Mechanical Ventilator 04/17/17 14:40 35 04/14/17 17:00 10.0 Intake and Output 04/16/17 04/16/17 04/17/17 15:00 23:00 07:00 Intake Total 750 ml 750 ml Output Total 650 ml 400 ml Balance 100 ml 350 ml Exam Constitutional: alert, oriented, well developed Psych: nl mood/affect, no complaints Head: atraumatic, normocephalic Eyes: EOMI, PERRL, nl conjunctiva, nl lids, nl sclera ENMT: nl external ears & nose, nl lips & teeth, nl nasal mucosa & septum Neck: non-tender, supple Respiratory: clear to auscultation, normal air movement Cardiovascular: nl pulses, regular rate and rhythm Gastrointestinal: nl liver, spleen, non-tender, soft Musculoskeletal: nl extremities to inspection, nl gait and stance Extremities: normal pulses Neurological: PUMPER HAND II-XII intact, nl mental status, nl speech, nl strength Skin: nl turgor, No rash or lesions Lymph: nl lymph nodes Results Result Diagram: 04/17/17 0200 04/17/17 0200 Results 24 hrs Laboratory Tests Test 04/16/17 19:00 04/17/17 02:00 04/17/17 06:28 04/17/17 17:00 Lactic Acid Level 1.1 1.3 White Blood Count 6.0 Red Blood Count 3.68 L Hemoglobin 10.2 L Hematocrit 34.0 L Mean Corpuscular Volume 92.4 Mean Corpuscular Hemoglobin 27.7 L Mean Corpuscular Hemoglobin Concent 30.0 L Red Cell Distribution Width 18.0 H Platelet Count 176 Mean Platelet Volume 10.6 H Neutrophils % 76.6 Lymphocytes % 9.0 L Monocytes % 7.4 Eosinophils % 5.7 Basophils % 0.8 Nucleated Red Blood Cells % 0.0 Neutrophils # 4.6 Lymphocytes # 0.5 L Monocytes # 0.4 Eosinophils # 0.3 Basophils # 0.1 Nucleated Red Blood Cells # 0.0 Sodium Level 141 Potassium Level 3.7 Chloride Level 104 Carbon Dioxide Level 25 Anion Gap 16 Blood Urea Nitrogen 15 Creatinine 0.80 Glucose Level 112 Calcium Level 8.9 Phosphorus Level 3.2 Magnesium Level 2.2 Total Bilirubin 0.4 Direct Bilirubin 0.00 Indirect Bilirubin 0.4 Aspartate Amino Transf (AST/SGOT) 24 Alanine Aminotransferase (ALT/SGPT) 34 Alkaline Phosphatase 106 Total Protein 7.6 Albumin 3.1 L Globulin 4.50 H Albumin/Globulin Ratio 0.68 Vancomycin Level Trough 15.2 Digoxin Level 0.7 L Medications Medications Current Medications Pantoprazole (Protonix Iv) 40 mg DAILY@06 IV Last administered on 04/17/17 05: 45; Admin Dose 40 MG; Start 04/15/17 at 06:00 Atorvastatin Calcium (Lipitor) 40 mg QHS GTB Last administered on 04/16/17 21: 25; Admin Dose 40 MG; Start 04/14/17 at 21:00 Bisacodyl (Dulcolax Supp) 10 mg Q2D [place] Last administered on 04/16/17 16:35; Admin Dose 10 MG; Start 04/14/17 at 17:30 Calcium Carbonate (Oyster Shell Calcium) 1.25 gm DAILY GTB Last administered on 04/17/17 09:08; Admin Dose 1.25 GM; Start 04/15/17 at 09:00 Chlorhexidine Gluconate (Peridex) 15 ml Q12 MM Last administered on 04/17/17 09:07; Admin Dose 15 ML; Start 04/14/17 at 21:00 Diltiazem HCl (Cardizem Sr) 60 mg BID PO Last administered on 04/17/17 09:08; Admin Dose 60 MG; Start 04/14/17 at 21:00 Labetalol HCl (Normodyne) 50 mg Q6 GTB Last administered on 04/17/17 12:35; Admin Dose 50 MG; Start 04/14/17 at 19:00 Losartan Potassium (Cozaar) 100 mg DAILY GTB Last administered on 04/17/17 09: 09; Admin Dose 100 MG; Start 04/15/17 at 00:30 Magnesium Hydroxide (Milk Of Mag) 30 ml DAILY GTB Last administered on 09:07; Admin Dose 30 ML; Start 04/15/17 at 09:00 Metoprolol Tartrate (Lopressor) 50 mg BID GTB Last administered on 04/17/17 09 :08; Admin Dose 50 MG; Start 04/14/17 at 21:00 Ondansetron HCl (Zofran Tab) 4 mg Q6H PRN GTB NAUSEA AND/OR VOMITING; Start at 17:30 Sodium Biphosphate/ Sodium Phosphate (Fleet Enema Pediatric) 66.6 ml Q3D PRN [place] CONSTIPATION; Start 04/14/17 at 17:30 Spironolactone 25 mg 25 mg BID GTB Last administered on 04/17/17 09:08; Admin Dose 25 MG; Start 04/14/17 at 21:00; Status Future hold Vancomycin HCl (Vancocin) 250 ml @ 125 mls/hr Q24H IVPB Last administered on 03:41; Admin Dose 125 MLS/HR; Start 04/15/17 at 03:00 Clonidine (Catapres) 0.1 mg Q6H PRN GTB SBP >170 Last administered on 06:16; Admin Dose 0.1 MG; Start 04/15/17 at 19:00 Nitroglycerin (Nitroglycerin 2% Oint) 1 inch Q8 PRN TD SBP >170 Last administered on 04/16/17 09:32; Admin Dose 1 INCH; Start 04/15/17 at 19:00 Hydralazine HCl (Apresoline) 50 mg Q8 PO Last administered on 04/17/17 14:57; Admin Dose 50 MG; Start 04/16/17 at 14:00 Acetaminophen (Tylenol Tab) 650 mg TID PO Last administered on 04/17/17 12:34 ; Admin Dose 650 MG; Start 04/16/17 at 09:00 Furosemide 40 mg 40 mg DAILY IV Last administered on 04/17/17 09:17; Admin Dose 40 MG; Start 04/16/17 at 09:30 Ertapenem/Sodium Chloride (Invanz/NS) 100 ml @ 200 mls/hr Q24H IVPB Last administered on 04/17/17 16:17; Admin Dose 200 MLS/HR; Start 04/16/17 at 16:00 MARY PAYNE MD Apr 17, 2017 18:12
[2017-04-17] MEDS: ATORVASTATIN 40 MG TAB GTB SCH (20:43)
[2017-04-18] VITALS (23 sets, daily range): BP systolic 113–175; BP diastolic 56–78; PULSE 49–72; RESP 16–24
[2017-04-18] MEDS: VANCOMYCIN 1 GM in NS 250 ML IVPB SCH (03:07)
[2017-04-18] MEDS: PANTOPRAZOLE 40 MG INJ IV SCH (05:45)
[2017-04-18] MEDS: LABETALOL 100 MG TAB GTB SCH ×4 (05:46→18:14)
[2017-04-18] MEDS: LEVOTHYROXINE 125 MCG TAB GTB SCH (05:46)
--- NOTE | 2017-04-18 07:59 | PN ---
Date/Time of Note Date/Time of Note DATE: 04/18/17 TIME: 07:57 Assessment/Plan VTE Prophylaxis VTE Prophylaxis Intervention: other Lines/Catheters IV Catheter Type (from Nrs): Saline Lock Urinary Cath still in place: Yes Reason Cath still needed: skin wounds contaminated by urine Assessment/Plan Assessment/Plan Assessment/Plan 1. Gastrointestinal bleed. - Eliquis is on hold now. -Follow-up with GI rec 2. Sepsis secondary to gram-positive bacteremia: -Follow-up with infectious disease regarding abx 3. Afib: ON HR control off of dig now cont betablocker and cardizem. off of eliquis due to bleeding concerns cont tele 4. Ventilator dependent respiratory failure. cont resp care. f/u with pulm 5. Dysphagia status post PEG. 6. HTN: cont betablocker, hydralazine caridizem cont aldactone lasix 7. Congestive heart failure/. fluid overload cont ARB LASIX as needed/ tolerated. 8. 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 Continue to monitor. 9. History of cerebrovascular accident. Continue medical management. Subjective 24 Hr Interval Summary Free Text/Dictation d/w staff and rhythm was reviewed. pt remains in Afib. HR has been controlled well. pt remains nonverbal on vent s/p trach. OBJECTIVE: General: no acute distress S/P trach on vent HEENT: NC/AT. pupils are equal. round. NECK: s/p trach. . no stridor. CV: irregularly irregular. . systolic murmur; no gallop or rubs. PULM: no wheezing anteriorly. GI: SOFT, NT, ND, no rebound or guarding Extremity: no significant LE edema. no clubbing. neuro: awake and appears alert. Psych: calm and pleasant rectal: deferred Derm: no active bleeding Exam/Review of Systems Vital Signs Vitals Vital Signs Date Time Temp Pulse Resp B/P Pulse Ox O2 Delivery O2 Flow Rate FiO2 04/18/17 06:49 98.1 59 19 125/59 94 04/18/17 06:01 35 04/17/17 16:06 Mechanical Ventilator 04/14/17 17:00 10.0 Intake and Output 04/17/17 04/17/17 04/18/17 15:00 23:00 07:00 Intake Total 700 ml 600 ml Output Total 1200 ml Balance -500 ml 600 ml Results Result Diagram: 04/17/17 0200 04/17/17 0200 Results 24 hrs Laboratory Tests Test 04/17/17 17:00 Lactic Acid Level 1.3 Medications Medications Current Medications Pantoprazole (Protonix Iv) 40 mg DAILY@06 IV Last administered on 04/18/17 05: 45; Admin Dose 40 MG; Start 04/15/17 at 06:00 Atorvastatin Calcium (Lipitor) 40 mg QHS GTB Last administered on 04/17/17 20: 43; Admin Dose 40 MG; Start 04/14/17 at 21:00 Bisacodyl (Dulcolax Supp) 10 mg Q2D [place] Last administered on 04/16/17 16:35; Admin Dose 10 MG; Start 04/14/17 at 17:30 Calcium Carbonate (Oyster Shell Calcium) 1.25 gm DAILY GTB Last administered on 04/17/17 09:08; Admin Dose 1.25 GM; Start 04/15/17 at 09:00 Chlorhexidine Gluconate (Peridex) 15 ml Q12 MM Last administered on 04/17/17 20:43; Admin Dose 15 ML; Start 04/14/17 at 21:00 Diltiazem HCl (Cardizem Sr) 60 mg BID PO Last administered on 04/17/17 20:44; Admin Dose 60 MG; Start 04/14/17 at 21:00 Labetalol HCl (Normodyne) 50 mg Q6 GTB Last administered on 04/18/17 05:46; Admin Dose 50 MG; Start 04/14/17 at 19:00 Losartan Potassium (Cozaar) 100 mg DAILY GTB Last administered on 04/17/17 09: 09; Admin Dose 100 MG; Start 04/15/17 at 00:30 Magnesium Hydroxide (Milk Of Mag) 30 ml DAILY GTB Last administered on 09:07; Admin Dose 30 ML; Start 04/15/17 at 09:00 Metoprolol Tartrate (Lopressor) 50 mg BID GTB Last administered on 04/17/17 20 :43; Admin Dose 50 MG; Start 04/14/17 at 21:00 Ondansetron HCl (Zofran Tab) 4 mg Q6H PRN GTB NAUSEA AND/OR VOMITING; Start at 17:30 Sodium Biphosphate/ Sodium Phosphate (Fleet Enema Pediatric) 66.6 ml Q3D PRN [place] CONSTIPATION; Start 04/14/17 at 17:30 Spironolactone 25 mg 25 mg BID GTB Last administered on 04/17/17 20:43; Admin Dose 25 MG; Start 04/14/17 at 21:00; Status Future hold Vancomycin HCl (Vancocin) 250 ml @ 125 mls/hr Q24H IVPB Last administered on 03:07; Admin Dose 125 MLS/HR; Start 04/15/17 at 03:00 Clonidine (Catapres) 0.1 mg Q6H PRN GTB SBP >170 Last administered on 06:16; Admin Dose 0.1 MG; Start 04/15/17 at 19:00 Nitroglycerin (Nitroglycerin 2% Oint) 1 inch Q8 PRN TD SBP >170 Last administered on 04/16/17 09:32; Admin Dose 1 INCH; Start 04/15/17 at 19:00 Hydralazine HCl (Apresoline) 50 mg Q8 PO Last administered on 04/18/17 05:46; Admin Dose 50 MG; Start 04/16/17 at 14:00 Acetaminophen (Tylenol Tab) 650 mg TID PO Last administered on 04/17/17 20:44 ; Admin Dose 650 MG; Start 04/16/17 at 09:00 Furosemide 40 mg 40 mg DAILY IV Last administered on 04/17/17 09:17; Admin Dose 40 MG; Start 04/16/17 at 09:30 Ertapenem/Sodium Chloride (Invanz/NS) 100 ml @ 200 mls/hr Q24H IVPB Last administered on 04/17/17 16:17; Admin Dose 200 MLS/HR; Start 04/16/17 at 16:00 LETICIA MCWILLIAMS MD Apr 18, 2017 07:59
--- NOTE | 2017-04-18 08:32 | PN ---
Date/Time of Note Date/Time of Note DATE: 04/18/17 TIME: 08:26 Assessment/Plan VTE Prophylaxis VTE Prophylaxis Intervention: other Lines/Catheters [facility] Saline Lock Urinary Cath still in place: Yes Reason Cath still needed: other (indicate) Assessment/Plan Chief Complaint/Hosp Course 1. Acute lower gastrointestinal bleed. -Resolved Patient status post EGD with no evidence of active bleed. Per GI okay to resume Eliquis Monitor H&H levels close -Follow-up with GI 2. Sepsis secondary to gram-positive bacteremia source may be UTI Blood cultures may been a contaminant. Repeat blood cultures negative to date Continue antibiotics -Follow-up with infectious disease 3. Hypertensive urgency, -Resolved -Continue BP meds - CT scan of the brain-negative for any acute 5 4. Ventilator dependent respiratory failure. The patient's vent settings have been reviewed. Place see pulmonary consult for evaluation. We will monitor closely. 5. Dysphagia status post PEG. -Tolerating tube feeding Monitor 6. Atrial fibrillation. The patient's rate is currently controlled. Continue metoprolol, diltiazem, and digoxin. Resume anticoagulation, monitor H&H Discussed with cardiology 7. Congestive heart failure. The patient is currently decompensated. Chest x- ray shows pulmonary congestion. Continue diuretics Follow-up with cardiology 8. 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 Continue to monitor. 9. History of cerebrovascular accident. Continue medical management. 10. Hypernatremia Resolved 11. Hypothyroidism. Continue Synthroid. 12. Gastrointestinal and deep venous thrombosis prophylaxis. Continue proton pump inhibitor and sequential leg squeezers. 15. Anemia secondary to gastrointestinal bleed as stated above. We will monitor hemoglobin and hematocrit levels 16. History of arthritis We will place the patient on routine Tylenol Elevated troponin likely non-STEMI type II We will follow-up with cardiology continue medical management Problems: Subjective 24 Hr Interval Summary Free Text/Dictation Patient seen and examined. No further bleeding noted. Resume tube feeding. Tolerating well. Exam/Review of Systems Vital Signs Vitals Vital Signs Date Time Temp Pulse Resp B/P Pulse Ox O2 Delivery O2 Flow Rate FiO2 04/18/17 08:20 68 04/18/17 06:49 98.1 19 125/59 94 04/18/17 06:01 35 04/17/17 16:06 Mechanical Ventilator 04/14/17 17:00 10.0 Intake and Output 04/17/17 04/17/17 04/18/17 15:00 23:00 07:00 Intake Total 700 ml 600 ml Output Total 1200 ml Balance -500 ml 600 ml Exam HEENT: Head is normocephalic. NECK: Shows trach. HEART: Irregularly irregular. LUNGS: Show diminished breath sounds at base. Positive rhonchi and crackles. ABDOMEN: Soft, nontender, positive PEG. EXTREMITIES: Negative for clubbing, cyanosis. MUSCULOSKELETAL: No joint effusion NEUROLOGIC: The patient is obtunded, limited exam. Results Result Diagram: 04/17/17 0200 04/17/17 0200 Results 24 hrs Laboratory Tests Test 04/17/17 17:00 Lactic Acid Level 1.3 Medications Medications Current Medications Pantoprazole (Protonix Iv) 40 mg DAILY@06 IV Last administered on 04/18/17 05: 45; Admin Dose 40 MG; Start 04/15/17 at 06:00 Atorvastatin Calcium (Lipitor) 40 mg QHS GTB Last administered on 04/17/17 20: 43; Admin Dose 40 MG; Start 04/14/17 at 21:00 Bisacodyl (Dulcolax Supp) 10 mg Q2D [place] Last administered on 04/16/17 16:35; Admin Dose 10 MG; Start 04/14/17 at 17:30 Calcium Carbonate (Oyster Shell Calcium) 1.25 gm DAILY GTB Last administered on 04/17/17 09:08; Admin Dose 1.25 GM; Start 04/15/17 at 09:00 Chlorhexidine Gluconate (Peridex) 15 ml Q12 MM Last administered on 04/17/17 20:43; Admin Dose 15 ML; Start 04/14/17 at 21:00 Diltiazem HCl (Cardizem Sr) 60 mg BID PO Last administered on 04/17/17 20:44; Admin Dose 60 MG; Start 04/14/17 at 21:00 Labetalol HCl (Normodyne) 50 mg Q6 GTB Last administered on 04/18/17 05:46; Admin Dose 50 MG; Start 04/14/17 at 19:00 Losartan Potassium (Cozaar) 100 mg DAILY GTB Last administered on 04/17/17 09: 09; Admin Dose 100 MG; Start 04/15/17 at 00:30 Magnesium Hydroxide (Milk Of Mag) 30 ml DAILY GTB Last administered on 09:07; Admin Dose 30 ML; Start 04/15/17 at 09:00 Metoprolol Tartrate (Lopressor) 50 mg BID GTB Last administered on 04/17/17 20 :43; Admin Dose 50 MG; Start 04/14/17 at 21:00 Ondansetron HCl (Zofran Tab) 4 mg Q6H PRN GTB NAUSEA AND/OR VOMITING; Start at 17:30 Sodium Biphosphate/ Sodium Phosphate (Fleet Enema Pediatric) 66.6 ml Q3D PRN [place] CONSTIPATION; Start 04/14/17 at 17:30 Spironolactone 25 mg 25 mg BID GTB Last administered on 04/17/17 20:43; Admin Dose 25 MG; Start 04/14/17 at 21:00; Status Future hold Vancomycin HCl (Vancocin) 250 ml @ 125 mls/hr Q24H IVPB Last administered on 03:07; Admin Dose 125 MLS/HR; Start 04/15/17 at 03:00 Clonidine (Catapres) 0.1 mg Q6H PRN GTB SBP >170 Last administered on 06:16; Admin Dose 0.1 MG; Start 04/15/17 at 19:00 Nitroglycerin (Nitroglycerin 2% Oint) 1 inch Q8 PRN TD SBP >170 Last administered on 04/16/17 09:32; Admin Dose 1 INCH; Start 04/15/17 at 19:00 Hydralazine HCl (Apresoline) 50 mg Q8 PO Last administered on 04/18/17 05:46; Admin Dose 50 MG; Start 04/16/17 at 14:00 Acetaminophen (Tylenol Tab) 650 mg TID PO Last administered on 04/17/17 20:44 ; Admin Dose 650 MG; Start 04/16/17 at 09:00 Furosemide 40 mg 40 mg DAILY IV Last administered on 04/17/17 09:17; Admin Dose 40 MG; Start 04/16/17 at 09:30 Ertapenem/Sodium Chloride (Invanz/NS) 100 ml @ 200 mls/hr Q24H IVPB Last administered on 7/19/17at 16:17; Admin Dose 200 MLS/HR; Start 04/16/17 at 16:00 NIRMALA TAVAREZ DO Apr 18, 2017 08:31
[2017-04-18] MEDS: MAGNESIUM HYDROXIDE 30ML CUP GTB SCH (09:38)
[2017-04-18] MEDS: CHLORHEXIDINE GLUCONATE 15 ML UD CUP MM SCH ×2 (09:38→21:00)
[2017-04-18] MEDS: ACETAMINOPHEN 325 MG TAB PO SCH ×3 (09:39→22:29)
[2017-04-18] MEDS: CALCIUM CARBONATE 1.25 GM TAB GTB SCH (09:39)
[2017-04-18] MEDS: APIXABAN 5 MG TABLET PO SCH ×2 (09:39→22:29)
[2017-04-18] MEDS: SPIRONOLACTONE 25 MG TAB GTB SCH ×2 (09:40→22:28)
[2017-04-18] MEDS: LOSARTAN 50 MG TAB GTB SCH (09:40)
[2017-04-18] MEDS: DILTIAZEM (SR) 60 MG CAP PO SCH ×2 (09:40→22:29)
[2017-04-18] MEDS: FUROSEMIDE 40 MG INJ IV SCH (09:41)
[2017-04-18] MEDS: METOPROLOL 50 MG TAB GTB SCH ×2 (09:41→22:29)
--- NOTE | 2017-04-18 11:49 | CONS ---
Date/Time of Note Date/Time of Note DATE: 04/18/17 TIME: 11:48 Consult Date/Type/Reason Admit Date/Time Apr 14, 2017 at 17:19 Initial Consult Date 04/15/17 Type of Consultation: Pulmonary ICU Subjective Patient comfortable this morning no events overnight. Objective Vital Signs Date Time Temp Pulse Resp B/P Pulse Ox O2 Delivery O2 Flow Rate FiO2 04/18/17 11:42 98.6 68 21 121/59 95 04/18/17 11:00 35 04/17/17 16:06 Mechanical Ventilator 04/14/17 17:00 10.0 Intake and Output 04/17/17 04/17/17 04/18/17 14:59 22:59 06:59 Intake Total 700 ml 600 ml Output Total 1200 ml Balance -500 ml 600 ml Exam PHYSICAL EXAMINATION GENERAL: Elderly gentleman, on mechanical ventilation via tracheostomy VITAL SIGNS: see below. HEENT: Pupils equal, round, and reactive to light. Tracheostomy site clean and intact. CARDIAC: S1, S2, 1/6 systolic ejection murmur CHEST: Diminished air entry bilaterally. ABDOMEN: Mildly distended. Bowel sounds present no guarding or rebound EXTREMITIES: No cyanosis, clubbing edema +1 NEUROLOGIC: Generalized weakness Results/Medications Result Diagram: 04/17/17 0200 04/17/17 0200 Results 24 hrs Laboratory Tests Test 04/17/17 17:00 Lactic Acid Level 1.3 Medications Current Medications Pantoprazole (Protonix Iv) 40 mg DAILY@06 IV Last administered on 04/18/17 05: 45; Admin Dose 40 MG; Start 04/15/17 at 06:00 Atorvastatin Calcium (Lipitor) 40 mg QHS GTB Last administered on 04/17/17 20: 43; Admin Dose 40 MG; Start 04/14/17 at 21:00 Bisacodyl (Dulcolax Supp) 10 mg Q2D [place] Last administered on 04/16/17 16:35; Admin Dose 10 MG; Start 04/14/17 at 17:30 Calcium Carbonate (Oyster Shell Calcium) 1.25 gm DAILY GTB Last administered on 04/18/17 09:39; Admin Dose 1.25 GM; Start 04/15/17 at 09:00 Chlorhexidine Gluconate (Peridex) 15 ml Q12 MM Last administered on 04/18/17 09:38; Admin Dose 15 ML; Start 04/14/17 at 21:00 Diltiazem HCl (Cardizem Sr) 60 mg BID PO Last administered on 04/18/17 09:40; Admin Dose 60 MG; Start 04/14/17 at 21:00 Labetalol HCl (Normodyne) 50 mg Q6 GTB Last administered on 04/18/17 05:46; Admin Dose 50 MG; Start 04/14/17 at 19:00 Losartan Potassium (Cozaar) 100 mg DAILY GTB Last administered on 04/18/17 09: 40; Admin Dose 100 MG; Start 04/15/17 at 00:30 Magnesium Hydroxide (Milk Of Mag) 30 ml DAILY GTB Last administered on 09:38; Admin Dose 30 ML; Start 04/15/17 at 09:00 Metoprolol Tartrate (Lopressor) 50 mg BID GTB Last administered on 04/18/17 09 :41; Admin Dose 50 MG; Start 04/14/17 at 21:00 Ondansetron HCl (Zofran Tab) 4 mg Q6H PRN GTB NAUSEA AND/OR VOMITING; Start at 17:30 Sodium Biphosphate/ Sodium Phosphate (Fleet Enema Pediatric) 66.6 ml Q3D PRN [place] CONSTIPATION; Start 04/14/17 at 17:30 Spironolactone 25 mg 25 mg BID GTB Last administered on 04/18/17 09:40; Admin Dose 25 MG; Start 04/14/17 at 21:00; Status Future hold Vancomycin HCl (Vancocin) 250 ml @ 125 mls/hr Q24H IVPB Last administered on 03:07; Admin Dose 125 MLS/HR; Start 04/15/17 at 03:00 Clonidine (Catapres) 0.1 mg Q6H PRN GTB SBP >170 Last administered on 06:16; Admin Dose 0.1 MG; Start 04/15/17 at 19:00 Nitroglycerin (Nitroglycerin 2% Oint) 1 inch Q8 PRN TD SBP >170 Last administered on 04/16/17 09:32; Admin Dose 1 INCH; Start 04/15/17 at 19:00 Hydralazine HCl (Apresoline) 50 mg Q8 PO Last administered on 04/18/17 05:46; Admin Dose 50 MG; Start 04/16/17 at 14:00 Acetaminophen (Tylenol Tab) 650 mg TID PO Last administered on 04/18/17 09:39 ; Admin Dose 650 MG; Start 04/16/17 at 09:00 Furosemide 40 mg 40 mg DAILY IV Last administered on 04/18/17 09:41; Admin Dose 40 MG; Start 04/16/17 at 09:30 Ertapenem/Sodium Chloride (Invanz/NS) 100 ml @ 200 mls/hr Q24H IVPB Last administered on 04/17/17 16:17; Admin Dose 200 MLS/HR; Start 04/16/17 at 16:00 Apixaban (Eliquis) 2.5 mg BID PO Last administered on 04/18/17 09:39; Admin Dose 2.5 MG; Start 04/18/17 at 09:00 Assessment/Plan Chief Complaint/Hosp Course assessment 1. Anemia rule out GI bleed, H&H currently stable, status post endoscopy 2. Vent dependent respiratory failure 3. History of dysphagia with G-tube 4. History of UTI gram-positive bacteremia 5. Hypertensive urgency likely with demand ischemia. Plan 1. Continue mechanical ventilation ABG noted. 2. Chest x-ray reviewed no further action needed. 3. Serial H&H monitor for drop in hemoglobin 4. GI recommendations. Post procedure. Okay to resume anticoagulation. 6. DVT and GI prophylaxis Transfer back to half-way facility okay from pulmonary standpoint Problems: MELBA SEVERINO MD, [facility] Apr 18, 2017 11:49
[2017-04-18] MEDS: ERTAPENEM SODIUM 1 GM in SOD CHLORIDE 0.9% 100 ML IVPB SCH (16:45)
[2017-04-18] MEDS: BISACODYL 10 MG SUPP PR SCH (18:14)
--- NOTE | 2017-04-18 19:02 | CONS ---
Date/Time of Note Date/Time of Note DATE: 04/18/17 TIME: 19:01 Assessment/Plan Assessment/Plan Chief Complaint/Hosp Course 87-year-old female with history of vent dependent respiratory failure, atrial fibrillation, CVA, encephalopathy was brought to the emergency room from subacute facility for anemia and passing black colored stool. And this was verified with the staff nurse on the floor. No nausea no vomiting. No chest pain or shortness of breath. Most of the information gathered by reviewing the chart. Patient was not in the poor position to give any history. Problems: Additional Assessment/Plan Additional Assessment/Plan Additional Assessment/Plan #1 GI bleeding with a positive stool guaiac and melanotic stool 2. Anemia 3. Atrial fibrillation on Eliquis 4. Vent dependent respiratory for 5. Hypertension 6. Hypothyroid 7. CVA 8. Encephalopathy 9. UTI Plan Resume Eliquis Monitor H&H and transfuse if hemoglobin less than 7.5 PPI Continue feeding patient is tolerating it Consultation Date/Type/Reason Admit Date/Time Apr 14, 2017 at 17:19 Initial Consult Date 04/15/17 Type of Consultation: Pulmonary ICU 24 HR Interval Summary Subjective hx not possible: pt non-verbal Constitutional: no complaints Exam/Review of Systems Vital Signs Vitals Vital Signs Date Time Temp Pulse Resp B/P Pulse Ox O2 Delivery O2 Flow Rate FiO2 04/18/17 17:15 69 19 96 35 04/18/17 15:49 98.6 145/69 04/17/17 16:06 Mechanical Ventilator 04/14/17 17:00 10.0 Intake and Output 04/17/17 04/17/17 04/18/17 15:00 23:00 07:00 Intake Total 700 ml 600 ml Output Total 1200 ml Balance -500 ml 600 ml Exam Constitutional: alert, oriented, well developed Psych: nl mood/affect, no complaints Head: atraumatic, normocephalic Eyes: EOMI, PERRL, nl conjunctiva, nl lids, nl sclera ENMT: nl external ears & nose, nl lips & teeth, nl nasal mucosa & septum Neck: non-tender, supple Respiratory: clear to auscultation, normal air movement Cardiovascular: nl pulses, regular rate and rhythm Gastrointestinal: nl liver, spleen, non-tender, soft Musculoskeletal: nl extremities to inspection, nl gait and stance Extremities: normal pulses Neurological: SPEEDER HAND II-XII intact, nl mental status, nl speech, nl strength Skin: nl turgor, No rash or lesions Lymph: nl lymph nodes Results Result Diagram: 04/17/17 02004/17/17 0200 Results 24 hrs Laboratory Tests Test 04/18/17 17:35 Lactic Acid Level 1.2 Medications Medications Current Medications Pantoprazole (Protonix Iv) 40 mg DAILY@06 IV Last administered on 04/18/17 05: 45; Admin Dose 40 MG; Start 04/15/17 at 06:00 Atorvastatin Calcium (Lipitor) 40 mg QHS GTB Last administered on 04/17/17 20: 43; Admin Dose 40 MG; Start 04/14/17 at 21:00 Bisacodyl (Dulcolax Supp) 10 mg Q2D [place] Last administered on 04/18/17 18:14; Admin Dose 10 MG; Start 04/14/17 at 17:30 Calcium Carbonate (Oyster Shell Calcium) 1.25 gm DAILY GTB Last administered on 04/18/17 09:39; Admin Dose 1.25 GM; Start 04/15/17 at 09:00 Chlorhexidine Gluconate (Peridex) 15 ml Q12 MM Last administered on 04/18/17 09:38; Admin Dose 15 ML; Start 04/14/17 at 21:00 Diltiazem HCl (Cardizem Sr) 60 mg BID PO Last administered on 04/18/17 09:40; Admin Dose 60 MG; Start 04/14/17 at 21:00 Labetalol HCl (Normodyne) 50 mg Q6 GTB Last administered on 04/18/17 18:14; Admin Dose 50 MG; Start 04/14/17 at 19:00 Losartan Potassium (Cozaar) 100 mg DAILY GTB Last administered on 04/18/17 09: 40; Admin Dose 100 MG; Start 04/15/17 at 00:30 Magnesium Hydroxide (Milk Of Mag) 30 ml DAILY GTB Last administered on 09:38; Admin Dose 30 ML; Start 04/15/17 at 09:00 Metoprolol Tartrate (Lopressor) 50 mg BID GTB Last administered on 04/18/17 09 :41; Admin Dose 50 MG; Start 04/14/17 at 21:00 Ondansetron HCl (Zofran Tab) 4 mg Q6H PRN GTB NAUSEA AND/OR VOMITING; Start at 17:30 Sodium Biphosphate/ Sodium Phosphate (Fleet Enema Pediatric) 66.6 ml Q3D PRN [place] CONSTIPATION; Start 04/14/17 at 17:30 Spironolactone 25 mg 25 mg BID GTB Last administered on 04/18/17 09:40; Admin Dose 25 MG; Start 04/14/17 at 21:00; Status Future hold Vancomycin HCl (Vancocin) 250 ml @ 125 mls/hr Q24H IVPB Last administered on 03:07; Admin Dose 125 MLS/HR; Start 04/15/17 at 03:00 Clonidine (Catapres) 0.1 mg Q6H PRN GTB SBP >170 Last administered on 06:16; Admin Dose 0.1 MG; Start 04/15/17 at 19:00 Nitroglycerin (Nitroglycerin 2% Oint) 1 inch Q8 PRN TD SBP >170 Last administered on 04/16/17 09:32; Admin Dose 1 INCH; Start 04/15/17 at 19:00 Hydralazine HCl (Apresoline) 50 mg Q8 PO Last administered on 04/18/17 05:46; Admin Dose 50 MG; Start 04/16/17 at 14:00 Acetaminophen (Tylenol Tab) 650 mg TID PO Last administered on 04/18/17 14:14 ; Admin Dose 650 MG; Start 04/16/17 at 09:00 Furosemide 40 mg 40 mg DAILY IV Last administered on 04/18/17 09:41; Admin Dose 40 MG; Start 04/16/17 at 09:30 Ertapenem/Sodium Chloride (Invanz/NS) 100 ml @ 200 mls/hr Q24H IVPB Last administered on 04/18/17 16:45; Admin Dose 200 MLS/HR; Start 04/16/17 at 16:00 Apixaban (Eliquis) 2.5 mg BID PO Last administered on 04/18/17 09:39; Admin Dose 2.5 MG; Start 04/18/17 at 09:00 MARY PAYNE MD Apr 18, 2017 19:02
--- NOTE | 2017-04-18 21:42 | CONS ---
Date/Time of Note Date/Time of Note DATE: 04/18/17 TIME: 21:40 Assessment/Plan Assessment/Plan Chief Complaint/Hosp Course No acute changes, afebrile, patient is lying comfortably in bed Microbiology: Blood culture growing coag negative staph species on admission urine culture growing Morganella Klebsiella ESBL E. coli ESBL Antimicrobials: Invanz vancomycin Indwelling's: Tracheostomy PEG Lazar peripheral IV Physical examination: Chronically ill-appearing elderly woman who is in no distress. Head atraumatic, normocephalic, sclera nonicteric. Bugle mucosa dry. Neck is supple, tracheostomy present. Chest rise symmetrical, breath sounds diminished basis. Heart: S1-S2. Abdomen soft, bowel tones present. Extremities without cyanosis Assessment: 1. Coag negative staph bacteremia, likely contaminant 2. Polymicrobial UTI 2. Healthcare associated pneumonia 4. Acute GI bleed/anemia==> EGD + chronic gastritis 5. Hypertension 6. Coronary artery disease history of atrial fibrillation 7. Chronic encephalopathy status post CVA Plan: Remains stable, on appropriate antibiotics Discussed with staff Problems: Consultation Date/Type/Reason Admit Date/Time Apr 14, 2017 at 17:19 Initial Consult Date 04/15/17 Type of Consultation: id Exam/Review of Systems Vital Signs Vitals Vital Signs Date Time Temp Pulse Resp B/P Pulse Ox O2 Delivery O2 Flow Rate FiO2 04/18/17 20:54 62 04/18/17 20:52 98.0 18 160/70 95 04/18/17 17:15 35 04/17/17 16:06 Mechanical Ventilator 04/14/17 17:00 10.0 Intake and Output 04/17/17 04/17/17 04/18/17 15:00 23:00 07:00 Intake Total 700 ml 600 ml Output Total 1200 ml Balance -500 ml 600 ml Results Result Diagram: 04/17/17 0200 04/17/17 0200 Results 24 hrs Laboratory Tests Test 04/18/17 17:35 Lactic Acid Level 1.2 Medications Medications Current Medications Pantoprazole (Protonix Iv) 40 mg DAILY@06 IV Last administered on 04/18/17 05: 45; Admin Dose 40 MG; Start 04/15/17 at 06:00 Atorvastatin Calcium (Lipitor) 40 mg QHS GTB Last administered on 04/17/17 20: 43; Admin Dose 40 MG; Start 04/14/17 at 21:00 Bisacodyl (Dulcolax Supp) 10 mg Q2D [place] Last administered on 04/18/17 18:14; Admin Dose 10 MG; Start 04/14/17 at 17:30 Calcium Carbonate (Oyster Shell Calcium) 1.25 gm DAILY GTB Last administered on 04/18/17 09:39; Admin Dose 1.25 GM; Start 04/15/17 at 09:00 Chlorhexidine Gluconate (Peridex) 15 ml Q12 MM Last administered on 04/18/17 09:38; Admin Dose 15 ML; Start 04/14/17 at 21:00 Diltiazem HCl (Cardizem Sr) 60 mg BID PO Last administered on 04/18/17 09:40; Admin Dose 60 MG; Start 04/14/17 at 21:00 Labetalol HCl (Normodyne) 50 mg Q6 GTB Last administered on 04/18/17 18:14; Admin Dose 50 MG; Start 04/14/17 at 19:00 Losartan Potassium (Cozaar) 100 mg DAILY GTB Last administered on 04/18/17 09: 40; Admin Dose 100 MG; Start 04/15/17 at 00:30 Magnesium Hydroxide (Milk Of Mag) 30 ml DAILY GTB Last administered on 09:38; Admin Dose 30 ML; Start 04/15/17 at 09:00 Metoprolol Tartrate (Lopressor) 50 mg BID GTB Last administered on 04/18/17 09 :41; Admin Dose 50 MG; Start 04/14/17 at 21:00 Ondansetron HCl (Zofran Tab) 4 mg Q6H PRN GTB NAUSEA AND/OR VOMITING; Start at 17:30 Sodium Biphosphate/ Sodium Phosphate (Fleet Enema Pediatric) 66.6 ml Q3D PRN [place] CONSTIPATION; Start 04/14/17 at 17:30 Spironolactone 25 mg 25 mg BID GTB Last administered on 04/18/17 09:40; Admin Dose 25 MG; Start 04/14/17 at 21:00; Status Future hold Vancomycin HCl (Vancocin) 250 ml @ 125 mls/hr Q24H IVPB Last administered on 03:07; Admin Dose 125 MLS/HR; Start 04/15/17 at 03:00 Clonidine (Catapres) 0.1 mg Q6H PRN GTB SBP >170 Last administered on 06:16; Admin Dose 0.1 MG; Start 04/15/17 at 19:00 Nitroglycerin (Nitroglycerin 2% Oint) 1 inch Q8 PRN TD SBP >170 Last administered on 04/16/17 09:32; Admin Dose 1 INCH; Start 04/15/17 at 19:00 Hydralazine HCl (Apresoline) 50 mg Q8 PO Last administered on 04/18/17 05:46; Admin Dose 50 MG; Start 04/16/17 at 14:00 Acetaminophen (Tylenol Tab) 650 mg TID PO Last administered on 04/18/17 14:14 ; Admin Dose 650 MG; Start 04/16/17 at 09:00 Furosemide 40 mg 40 mg DAILY IV Last administered on 04/18/17 09:41; Admin Dose 40 MG; Start 04/16/17 at 09:30 Ertapenem/Sodium Chloride (Invanz/NS) 100 ml @ 200 mls/hr Q24H IVPB Last administered on 04/18/17 16:45; Admin Dose 200 MLS/HR; Start 04/16/17 at 16:00 Apixaban (Eliquis) 2.5 mg BID PO Last administered on 04/18/17 09:39; Admin Dose 2.5 MG; Start 04/18/17 at 09:00 NIKOLAS WATTS NP Apr 18, 2017 21:41
[2017-04-18] MEDS: ATORVASTATIN 40 MG TAB GTB SCH (22:28)
[2017-04-19] VITALS (25 sets, daily range): BP systolic 109–163; BP diastolic 48–69; PULSE 55–68; RESP 15–26
[2017-04-19] MEDS: LABETALOL 100 MG TAB GTB SCH ×4 (00:18→17:35)
[2017-04-19] MEDS: VANCOMYCIN 1 GM in NS 250 ML IVPB SCH (03:19)
[2017-04-19 06:06] LABS: ADD SCAN DIFF NO
[2017-04-19 06:11] LABS: BASOPHIL # 0.1 10^3/ul (0.0-0.1); BASOPHILS % 0.8 % (0.0-2.0); EOSINOPHILS # 0.3 10^3/ul (0.0-0.5); EOSINOPHILS % 3.5 % (0.0-7.0); HEMATOCRIT 33.1 % (37.0-47.0); HEMOGLOBIN 10.1 g/dl (12.0-16.0); LYMPHOCYTES # 1.1 10^3/ul (0.8-2.9); MEAN CORPUSCULAR HEMOGLOBIN 28.4 pg (29.0-33.0); MEAN CORPUSCULAR HGB CONC 30.5 g/dl (32.0-37.0); MEAN PLATELET VOLUME 10.8 fl (7.4-10.4); MONOCYTE # 0.5 10^3/ul (0.3-0.9); NEUTROPHIL # 5.6 10^3/ul (1.6-7.5); NEUTROPHILS % 74.4 % (39.0-77.0); PLATELET COUNT 196 10^3/UL (140-415); RED BLOOD COUNT 3.56 10^6/ul (4.20-5.40); RED CELL DISTRIBUTION WIDTH 18.1 % (11.5-14.5); WHITE BLOOD COUNT 7.5 10^3/ul (4.8-10.8)
[2017-04-19] MEDS: PANTOPRAZOLE 40 MG INJ IV SCH (06:23)
[2017-04-19] MEDS: LEVOTHYROXINE 125 MCG TAB GTB SCH (06:23)
[2017-04-19 06:39] LABS: CALCIUM 8.9 mg/dl (8.4-10.2); CREATININE 0.84 mg/dl (0.44-1.00); MAGNESIUM 2.1 mg/dl (1.7-2.5); PHOSPHORUS 2.8 mg/dl (2.5-4.9); POTASSIUM 3.5 mmol/L (3.5-5.1)
[2017-04-19] MEDS: MAGNESIUM HYDROXIDE 30ML CUP GTB SCH (08:21)
[2017-04-19] MEDS: CHLORHEXIDINE GLUCONATE 15 ML UD CUP MM SCH ×2 (08:21→21:47)
[2017-04-19] MEDS: FUROSEMIDE 40 MG INJ IV SCH (08:22)
[2017-04-19] MEDS: METOPROLOL 50 MG TAB GTB SCH ×2 (08:23→21:50)
[2017-04-19] MEDS: CALCIUM CARBONATE 1.25 GM TAB GTB SCH (08:23)
[2017-04-19] MEDS: SPIRONOLACTONE 25 MG TAB GTB SCH ×2 (08:23→21:47)
[2017-04-19] MEDS: DILTIAZEM (SR) 60 MG CAP PO SCH ×2 (08:23→21:51)
[2017-04-19] MEDS: ACETAMINOPHEN 325 MG TAB PO SCH ×3 (08:24→21:48)
[2017-04-19] MEDS: LOSARTAN 50 MG TAB GTB SCH (08:24)
[2017-04-19] MEDS: APIXABAN 5 MG TABLET PO SCH ×2 (08:24→21:47)
--- NOTE | 2017-04-19 09:22 | PN ---
Date/Time of Note Date/Time of Note DATE: 04/19/17 TIME: 09:20 Assessment/Plan Lines/Catheters IV C[facility]ter Type (from [facility]): Peripheral IV Urinary Cath still in place: Yes Assessment/Plan Chief Complaint/Hosp Course 1. Acute lower gastrointestinal bleed. -Resolved Patient status post EGD with no evidence of active bleed. Per GI okay to resume Eliquis Monitor H&H levels close -Follow-up with GI 2. Sepsis secondary to gram-positive bacteremia source may be UTI Blood cultures may been a contaminant. Repeat blood cultures negative to date Continue antibiotics -Follow-up with infectious disease 3. Hypertensive urgency, -Resolved -Continue BP meds - CT scan of the brain-negative for any acute 5 4. Ventilator dependent respiratory failure. The patient's vent settings have been reviewed. Place see pulmonary consult for evaluation. We will monitor closely. 5. Dysphagia status post PEG. -Tolerating tube feeding Monitor 6. Atrial fibrillation. The patient's rate is currently controlled. Continue metoprolol, diltiazem, and digoxin. Resume anticoagulation, monitor H&H Discussed with cardiology 7. Congestive heart failure. The patient is currently decompensated. Chest x- ray shows pulmonary congestion. Continue diuretics Follow-up with cardiology 8. 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 Continue to monitor. 9. History of cerebrovascular accident. Continue medical management. 10. Hypernatremia Resolved 11. Hypothyroidism. Continue Synthroid. 12. Gastrointestinal and deep venous thrombosis prophylaxis. Continue proton pump inhibitor and sequential leg squeezers. 15. Anemia secondary to gastrointestinal bleed as stated above. We will monitor hemoglobin and hematocrit levels 16. History of arthritis We will place the patient on routine Tylenol Elevated troponin likely non-STEMI type II We will follow-up with cardiology . continue medical management Problems: Subjective 24 Hr Interval Summary Free Text/Dictation Patient seen and examined No events overnight Tolerating tube feeding No evidence of GI bleed Exam/Review of Systems Vital Signs Vitals Vital Signs Date Time Temp Pulse Resp B/P Pulse Ox O2 Delivery O2 Flow Rate FiO2 04/19/17 08:41 65 04/19/17 08:01 98.3 19 136/64 96 04/19/17 07:50 35 04/17/17 16:06 Mechanical Ventilator Intake and Output 04/18/17 04/18/17 04/19/17 15:00 23:00 07:00 Intake Total 1000 ml 1000 ml Output Total 450 ml Balance 1000 ml 550 ml Exam HEENT: Head is normocephalic. NECK: Shows trach. HEART: Irregularly irregular. LUNGS: Show diminished breath sounds at base. Positive rhonchi and crackles. ABDOMEN: Soft, nontender, positive PEG. EXTREMITIES: Negative for clubbing, cyanosis. MUSCULOSKELETAL: No joint effusion NEUROLOGIC: The patient is obtunded, limited exam. Results Result Diagram: 04/19/17 0549 04/19/17 0549 Results 24 hrs Laboratory Tests Test 04/18/17 17:35 04/19/17 05:49 Lactic Acid Level 1.2 White Blood Count 7.5 # Red Blood Count 3.56 L Hemoglobin 10.1 L Hematocrit 33.1 L Mean Corpuscular Volume 93.0 Mean Corpuscular Hemoglobin 28.4 L Mean Corpuscular Hemoglobin Concent 30.5 L Red Cell Distribution Width 18.1 H Platelet Count 196 Mean Platelet Volume 10.8 H Neutrophils % 74.4 Lymphocytes % 15.0 Monocytes % 6.0 Eosinophils % 3.5 Basophils % 0.8 Neutrophils # 5.6 Lymphocytes # 1.1 Monocytes # 0.5 Eosinophils # 0.3 Basophils # 0.1 Nucleated Red Blood Cells # 0.0 Sodium Level 141 Potassium Level 3.5 Chloride Level 100 Carbon Dioxide Level 30 Anion Gap 15 Blood Urea Nitrogen 18 Creatinine 0.84 Glucose Level 117 Calcium Level 8.9 Phosphorus Level 2.8 Magnesium Level 2.1 Medications Medications Current Medications Pantoprazole (Protonix Iv) 40 mg DAILY@06 IV Last administered on 04/19/17 06: 23; Admin Dose 40 MG; Start 04/15/17 at 06:00 Atorvastatin Calcium (Lipitor) 40 mg QHS GTB Last administered on 04/18/17 22: 28; Admin Dose 40 MG; Start 04/14/17 at 21:00 Bisacodyl (Dulcolax Supp) 10 mg Q2D [place] Last administered on 04/18/17 18:14; Admin Dose 10 MG; Start 04/14/17 at 17:30 Calcium Carbonate (Oyster Shell Calcium) 1.25 gm DAILY GTB Last administered on 04/19/17 08:23; Admin Dose 1.25 GM; Start 04/15/17 at 09:00 Chlorhexidine Gluconate (Peridex) 15 ml Q12 MM Last administered on 04/19/17 08:21; Admin Dose 15 ML; Start 04/14/17 at 21:00 Diltiazem HCl (Cardizem Sr) 60 mg BID PO Last administered on 04/19/17 08:23; Admin Dose 60 MG; Start 04/14/17 at 21:00 Labetalol HCl (Normodyne) 50 mg Q6 GTB Last administered on 04/19/17 06:24; Admin Dose 50 MG; Start 04/14/17 at 19:00 Losartan Potassium (Cozaar) 100 mg DAILY GTB Last administered on 04/19/17 08: 24; Admin Dose 100 MG; Start 04/15/17 at 00:30 Magnesium Hydroxide (Milk Of Mag) 30 ml DAILY GTB Last administered on 08:21; Admin Dose 30 ML; Start 04/15/17 at 09:00 Metoprolol Tartrate (Lopressor) 50 mg BID GTB Last administered on 04/19/17 08 :23; Admin Dose 50 MG; Start 04/14/17 at 21:00 Ondansetron HCl (Zofran Tab) 4 mg Q6H PRN GTB NAUSEA AND/OR VOMITING; Start at 17:30 Sodium Biphosphate/ Sodium Phosphate (Fleet Enema Pediatric) 66.6 ml Q3D PRN [place] CONSTIPATION; Start 04/14/17 at 17:30 Spironolactone 25 mg 25 mg BID GTB Last administered on 04/19/17 08:23; Admin Dose 25 MG; Start 04/14/17 at 21:00; Status Future hold Vancomycin HCl (Vancocin) 250 ml @ 125 mls/hr Q24H IVPB Last administered on 03:19; Admin Dose 125 MLS/HR; Start 04/15/17 at 03:00 Clonidine (Catapres) 0.1 mg Q6H PRN GTB SBP >170 Last administered on 06:16; Admin Dose 0.1 MG; Start 04/15/17 at 19:00 Nitroglycerin (Nitroglycerin 2% Oint) 1 inch Q8 PRN TD SBP >170 Last administered on 04/16/17 09:32; Admin Dose 1 INCH; Start 04/15/17 at 19:00 Hydralazine HCl (Apresoline) 50 mg Q8 PO Last administered on 04/19/17 06:23; Admin Dose 50 MG; Start 04/16/17 at 14:00 Acetaminophen (Tylenol Tab) 650 mg TID PO Last administered on 04/19/17 08:24 ; Admin Dose 650 MG; Start 04/16/17 at 09:00 Furosemide 40 mg 40 mg DAILY IV Last administered on 04/19/17 08:22; Admin Dose 40 MG; Start 04/16/17 at 09:30 Ertapenem/Sodium Chloride (Invanz/NS) 100 ml @ 200 mls/hr Q24H IVPB Last administered on 04/18/17 16:45; Admin Dose 200 MLS/HR; Start 04/16/17 at 16:00 Apixaban (Eliquis) 2.5 mg BID PO Last administered on 04/19/17 08:24; Admin Dose 2.5 MG; Start 04/18/17 at 09:00 NIRMALA TAVAREZ DO Apr 19, 2017 09:21
--- NOTE | 2017-04-19 15:32 | CONS ---
Date/Time of Note Date/Time of Note DATE: 04/19/17 TIME: 15:31 Assessment/Plan Assessment/Plan Chief Complaint/Hosp Course No changes overnight per report, patient is noncommunicative, looks comfortable no fevers Temperature 98.4 pulse 79 respirations 20 blood pressure 149/69 saturation 98 on 35 FiO2 WBC 7.5 H&H 10.1 and 33.1 platelets 196 no shift no balance BN 18 creatinine 0.84 Microbiology: Blood culture growing coag negative staph species on admission urine culture growing Morganella Klebsiella ESBL E. coli ESBL Antimicrobials: Invanz vancomycin Indwelling's: Tracheostomy PEG Lazar peripheral IV Physical examination: Chronically ill-appearing elderly woman who is in no distress. Head atraumatic, normocephalic, sclera nonicteric. Bugle mucosa dry. Neck is supple, tracheostomy present. Chest rise symmetrical, breath sounds diminished basis. Heart: S1-S2. Abdomen soft, bowel tones present. Extremities without cyanosis Assessment: 1. Coag negative staph bacteremia, likely contaminant 2. Polymicrobial UTI 2. Healthcare associated pneumonia 4. Acute GI bleed/anemia==> EGD + chronic gastritis 5. Hypertension 6. Coronary artery disease history of atrial fibrillation 7. Chronic encephalopathy status post CVA Plan: Remains stable, on appropriate antibiotics Discussed with staff Problems: Consultation Date/Type/Reason Admit Date/Time Apr 14, 2017 at 17:19 Initial Consult Date 04/15/17 Type of Consultation: id Exam/Review of Systems Vital Signs Vitals Vital Signs Date Time Temp Pulse Resp B/P Pulse Ox O2 Delivery O2 Flow Rate FiO2 04/19/17 15:16 98.4 79 19 149/69 95 04/19/17 13:35 35 04/17/17 16:06 Mechanical Ventilator Intake and Output 04/18/17 04/18/17 04/19/17 15:00 23:00 07:00 Intake Total 1000 ml 1000 ml Output Total 450 ml Balance 1000 ml 550 ml Results Result Diagram: 04/19/17 0549 04/19/17 0549 Results 24 hrs Laboratory Tests Test 04/18/17 17:35 04/19/17 05:49 Lactic Acid Level 1.2 White Blood Count 7.5 # Red Blood Count 3.56 L Hemoglobin 10.1 L Hematocrit 33.1 L Mean Corpuscular Volume 93.0 Mean Corpuscular Hemoglobin 28.4 L Mean Corpuscular Hemoglobin Concent 30.5 L Red Cell Distribution Width 18.1 H Platelet Count 196 Mean Platelet Volume 10.8 H Neutrophils % 74.4 Lymphocytes % 15.0 Monocytes % 6.0 Eosinophils % 3.5 Basophils % 0.8 Neutrophils # 5.6 Lymphocytes # 1.1 Monocytes # 0.5 Eosinophils # 0.3 Basophils # 0.1 Nucleated Red Blood Cells # 0.0 Sodium Level 141 Potassium Level 3.5 Chloride Level 100 Carbon Dioxide Level 30 Anion Gap 15 Blood Urea Nitrogen 18 Creatinine 0.84 Glucose Level 117 Calcium Level 8.9 Phosphorus Level 2.8 Magnesium Level 2.1 Medications Medications Current Medications Pantoprazole (Protonix Iv) 40 mg DAILY@06 IV Last administered on 04/19/17 06: 23; Admin Dose 40 MG; Start 04/15/17 at 06:00 Atorvastatin Calcium (Lipitor) 40 mg QHS GTB Last administered on 04/18/17 22: 28; Admin Dose 40 MG; Start 04/14/17 at 21:00 Bisacodyl (Dulcolax Supp) 10 mg Q2D [place] Last administered on 04/18/17 18:14; Admin Dose 10 MG; Start 04/14/17 at 17:30 Calcium Carbonate (Oyster Shell Calcium) 1.25 gm DAILY GTB Last administered on 04/19/17 08:23; Admin Dose 1.25 GM; Start 04/15/17 at 09:00 Chlorhexidine Gluconate (Peridex) 15 ml Q12 MM Last administered on 04/19/17 08:21; Admin Dose 15 ML; Start 04/14/17 at 21:00 Diltiazem HCl (Cardizem Sr) 60 mg BID PO Last administered on 04/19/17 08:23; Admin Dose 60 MG; Start 04/14/17 at 21:00 Labetalol HCl (Normodyne) 50 mg Q6 GTB Last administered on 04/19/17 06:24; Admin Dose 50 MG; Start 04/14/17 at 19:00 Losartan Potassium (Cozaar) 100 mg DAILY GTB Last administered on 04/19/17 08: 24; Admin Dose 100 MG; Start 04/15/17 at 00:30 Magnesium Hydroxide (Milk Of Mag) 30 ml DAILY GTB Last administered on 08:21; Admin Dose 30 ML; Start 04/15/17 at 09:00 Metoprolol Tartrate (Lopressor) 50 mg BID GTB Last administered on 04/19/17 08 :23; Admin Dose 50 MG; Start 04/14/17 at 21:00 Ondansetron HCl (Zofran Tab) 4 mg Q6H PRN GTB NAUSEA AND/OR VOMITING; Start at 17:30 Sodium Biphosphate/ Sodium Phosphate (Fleet Enema Pediatric) 66.6 ml Q3D PRN [place] CONSTIPATION; Start 04/14/17 at 17:30 Spironolactone 25 mg 25 mg BID GTB Last administered on 04/19/17 08:23; Admin Dose 25 MG; Start 04/14/17 at 21:00; Status Future hold Vancomycin HCl (Vancocin) 250 ml @ 125 mls/hr Q24H IVPB Last administered on 03:19; Admin Dose 125 MLS/HR; Start 04/15/17 at 03:00 Clonidine (Catapres) 0.1 mg Q6H PRN GTB SBP >170 Last administered on 06:16; Admin Dose 0.1 MG; Start 04/15/17 at 19:00 Nitroglycerin (Nitroglycerin 2% Oint) 1 inch Q8 PRN TD SBP >170 Last administered on 04/16/17 09:32; Admin Dose 1 INCH; Start 04/15/17 at 19:00 Hydralazine HCl (Apresoline) 50 mg Q8 PO Last administered on 04/19/17 06:23; Admin Dose 50 MG; Start 04/16/17 at 14:00 Acetaminophen (Tylenol Tab) 650 mg TID PO Last administered on 04/19/17 14:31 ; Admin Dose 650 MG; Start 04/16/17 at 09:00 Furosemide 40 mg 40 mg DAILY IV Last administered on 04/19/17 08:22; Admin Dose 40 MG; Start 04/16/17 at 09:30 Ertapenem/Sodium Chloride (Invanz/NS) 100 ml @ 200 mls/hr Q24H IVPB Last administered on 04/18/17 16:45; Admin Dose 200 MLS/HR; Start 04/16/17 at 16:00 Apixaban (Eliquis) 2.5 mg BID PO Last administered on 04/19/17t 08:24; Admin Dose 2.5 MG; Start 04/18/17 at 09:00 NIKOLAS WATTS NP Apr 19, 2017 15:32
[2017-04-19] MEDS: ERTAPENEM SODIUM 1 GM in SOD CHLORIDE 0.9% 100 ML IVPB SCH (16:30)
--- NOTE | 2017-04-19 16:55 | PN ---
Date/Time of Note Date/Time of Note DATE: 04/19/17 TIME: 16:53 Assessment/Plan VTE Prophylaxis VTE Prophylaxis Intervention: other Lines/Catheters IV Catheter Type (from Nrs): Peripheral IV Urinary Cath still in place: Yes Reason Cath still needed: other (indicate) Assessment/Plan Assessment/Plan Assessment/Plan 1. Gastrointestinal bleed. - Follow-up with GI rec. eliquis as long as ok with GI. 2. Sepsis secondary to gram-positive bacteremia: -Follow-up with infectious disease regarding abx 3. Afib: ON HR control off of dig now cont betablocker and cardizem. 4. Ventilator dependent respiratory failure. cont resp care. f/u with pulm 5. Dysphagia status post PEG. 6. HTN: cont betablocker, hydralazine caridizem cont aldactone lasix 7. Congestive heart failure/. fluid overload cont ARB LASIX as needed/ tolerated. 8. 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 Continue to monitor. 9. History of cerebrovascular accident. Continue medical management. Subjective 24 Hr Interval Summary Free Text/Dictation d/w staff and rhythm was reviewed. pt remains in Afib. HR has been controlled well. pt remains nonverbal on vent s/p trach. OBJECTIVE: General: no acute distress S/P trach on vent HEENT: NC/AT. pupils are equal. round. NECK: s/p trach. . no stridor. CV: irregularly irregular. . systolic murmur; no gallop or rubs. PULM: no wheezing anteriorly. GI: SOFT, NT, ND, no rebound or guarding Extremity: no significant LE edema. no clubbing. neuro: awake and appears alert. Psych: calm and pleasant rectal: deferred Derm: no active bleeding Exam/Review of Systems Vital Signs Vitals Vital Signs Date Time Temp Pulse Resp B/P Pulse Ox O2 Delivery O2 Flow Rate FiO2 04/19/17 15:16 98.4 79 19 149/69 95 04/19/17 15:05 35 04/17/17 16:06 Mechanical Ventilator Intake and Output 04/18/17 04/18/17 04/19/17 15:00 23:00 07:00 Intake Total 1000 ml 1000 ml Output Total 450 ml Balance 1000 ml 550 ml Results Result Diagram: 04/19/17 0549 04/19/17 0549 Results 24 hrs Laboratory Tests Test 04/18/17 17:35 04/19/17 05:49 Lactic Acid Level 1.2 White Blood Count 7.5 # Red Blood Count 3.56 L Hemoglobin 10.1 L Hematocrit 33.1 L Mean Corpuscular Volume 93.0 Mean Corpuscular Hemoglobin 28.4 L Mean Corpuscular Hemoglobin Concent 30.5 L Red Cell Distribution Width 18.1 H Platelet Count 196 Mean Platelet Volume 10.8 H Neutrophils % 74.4 Lymphocytes % 15.0 Monocytes % 6.0 Eosinophils % 3.5 Basophils % 0.8 Neutrophils # 5.6 Lymphocytes # 1.1 Monocytes # 0.5 Eosinophils # 0.3 Basophils # 0.1 Nucleated Red Blood Cells # 0.0 Sodium Level 141 Potassium Level 3.5 Chloride Level 100 Carbon Dioxide Level 30 Anion Gap 15 Blood Urea Nitrogen 18 Creatinine 0.84 Glucose Level 117 Calcium Level 8.9 Phosphorus Level 2.8 Magnesium Level 2.1 Medications Medications Current Medications Pantoprazole (Protonix Iv) 40 mg DAILY@06 IV Last administered on 04/19/17 06: 23; Admin Dose 40 MG; Start 04/15/17 at 06:00 Atorvastatin Calcium (Lipitor) 40 mg QHS GTB Last administered on 04/18/17 22: 28; Admin Dose 40 MG; Start 04/14/17 at 21:00 Bisacodyl (Dulcolax Supp) 10 mg Q2D [place] Last administered on 04/18/17 18:14; Admin Dose 10 MG; Start 04/14/17 at 17:30 Calcium Carbonate (Oyster Shell Calcium) 1.25 gm DAILY GTB Last administered on 04/19/17 08:23; Admin Dose 1.25 GM; Start 04/15/17 at 09:00 Chlorhexidine Gluconate (Peridex) 15 ml Q12 MM Last administered on 04/19/17 08:21; Admin Dose 15 ML; Start 04/14/17 at 21:00 Diltiazem HCl (Cardizem Sr) 60 mg BID PO Last administered on 04/19/17 08:23; Admin Dose 60 MG; Start 04/14/17 at 21:00 Labetalol HCl (Normodyne) 50 mg Q6 GTB Last administered on 04/19/17 06:24; Admin Dose 50 MG; Start 04/14/17 at 19:00 Losartan Potassium (Cozaar) 100 mg DAILY GTB Last administered on 04/19/17 08: 24; Admin Dose 100 MG; Start 04/15/17 at 00:30 Magnesium Hydroxide (Milk Of Mag) 30 ml DAILY GTB Last administered on 08:21; Admin Dose 30 ML; Start 04/15/17 at 09:00 Metoprolol Tartrate (Lopressor) 50 mg BID GTB Last administered on 04/19/17 08 :23; Admin Dose 50 MG; Start 04/14/17 at 21:00 Ondansetron HCl (Zofran Tab) 4 mg Q6H PRN GTB NAUSEA AND/OR VOMITING; Start at 17:30 Sodium Biphosphate/ Sodium Phosphate (Fleet Enema Pediatric) 66.6 ml Q3D PRN [place] CONSTIPATION; Start 04/14/17 at 17:30 Spironolactone 25 mg 25 mg BID GTB Last administered on 04/19/17 08:23; Admin Dose 25 MG; Start 04/14/17 at 21:00; Status Future hold Vancomycin HCl (Vancocin) 250 ml @ 125 mls/hr Q24H IVPB Last administered on 03:19; Admin Dose 125 MLS/HR; Start 04/15/17 at 03:00 Clonidine (Catapres) 0.1 mg Q6H PRN GTB SBP >170 Last administered on 06:16; Admin Dose 0.1 MG; Start 04/15/17 at 19:00 Nitroglycerin (Nitroglycerin 2% Oint) 1 inch Q8 PRN TD SBP >170 Last administered on 04/16/17 09:32; Admin Dose 1 INCH; Start 04/15/17 at 19:00 Hydralazine HCl (Apresoline) 50 mg Q8 PO Last administered on 04/19/17 06:23; Admin Dose 50 MG; Start 04/16/17 at 14:00 Acetaminophen (Tylenol Tab) 650 mg TID PO Last administered on 04/19/17 14:31 ; Admin Dose 650 MG; Start 04/16/17 at 09:00 Furosemide 40 mg 40 mg DAILY IV Last administered on 04/19/17 08:22; Admin Dose 40 MG; Start 04/16/17 at 09:30 Ertapenem/Sodium Chloride (Invanz/NS) 100 ml @ 200 mls/hr Q24H IVPB Last administered on 04/18/17 16:45; Admin Dose 200 MLS/HR; Start 04/16/17 at 16:00 Apixaban (Eliquis) 2.5 mg BID PO Last administered on 04/19/17 08:24; Admin Dose 2.5 MG; Start 04/18/17 at 09:00 Miscellaneous Information (*Rx Drug Level Order Reminder*) 1 ONCE ONCE XX ; Start 04/20/17 at 02:00; Stop 04/20/17 at 02:01 LETICIA MCWILLIAMS MD Apr 19, 2017 16:55
--- NOTE | 2017-04-19 17:04 | CONS ---
Date/Time of Note Date/Time of Note DATE: 04/19/17 TIME: 17:03 Assessment/Plan Assessment/Plan Chief Complaint/Hosp Course 87-year-old female with history of vent dependent respiratory failure, atrial fibrillation, CVA, encephalopathy was brought to the emergency room from subacute facility for anemia and passing black colored stool. And this was verified with the staff nurse on the floor. No nausea no vomiting. No chest pain or shortness of breath. Most of the information gathered by reviewing the chart. Patient was not in the poor position to give any history. Problems: Additional Assessment/Plan Additional Assessment/Plan #1 GI bleeding with a positive stool guaiac and melanotic stool 2. Anemia 3. Atrial fibrillation on Eliquis 4. Vent dependent respiratory for 5. Hypertension 6. Hypothyroid 7. CVA 8. Encephalopathy 9. UTI, polymicrobial infection Plan Resume Eliquis Monitor H&H and transfuse if hemoglobin less than 7.5 PPI Continue feeding patient is tolerating it Consultation Date/Type/Reason Admit Date/Time Apr 14, 2017 at 17:19 Initial Consult Date 04/15/17 Type of Consultation: id 24 HR Interval Summary Subjective hx not possible: pt non-verbal Exam/Review of Systems Vital Signs Vitals Vital Signs Date Time Temp Pulse Resp B/P Pulse Ox O2 Delivery O2 Flow Rate FiO2 04/19/17 17:01 59 04/19/17 15:16 98.4 19 149/69 95 04/19/17 15:05 35 04/17/17 16:06 Mechanical Ventilator Intake and Output 04/18/17 04/18/17 04/19/17 15:00 23:00 07:00 Intake Total 1000 ml 1000 ml Output Total 450 ml Balance 1000 ml 550 ml Exam Respiratory: other (Patient is on vent) Cardiovascular: nl pulses, regular rate and rhythm Gastrointestinal: nl liver, spleen, non-tender (Tolerating G-tube feeds), other , soft Neurological: unresponsive Results Result Diagram: 04/19/17 0549 04/19/17 0549 Results 24 hrs Laboratory Tests Test 04/18/17 17:35 04/19/17 05:49 Lactic Acid Level 1.2 White Blood Count 7.5 # Red Blood Count 3.56 L Hemoglobin 10.1 L Hematocrit 33.1 L Mean Corpuscular Volume 93.0 Mean Corpuscular Hemoglobin 28.4 L Mean Corpuscular Hemoglobin Concent 30.5 L Red Cell Distribution Width 18.1 H Platelet Count 196 Mean Platelet Volume 10.8 H Neutrophils % 74.4 Lymphocytes % 15.0 Monocytes % 6.0 Eosinophils % 3.5 Basophils % 0.8 Neutrophils # 5.6 Lymphocytes # 1.1 Monocytes # 0.5 Eosinophils # 0.3 Basophils # 0.1 Nucleated Red Blood Cells # 0.0 Sodium Level 141 Potassium Level 3.5 Chloride Level 100 Carbon Dioxide Level 30 Anion Gap 15 Blood Urea Nitrogen 18 Creatinine 0.84 Glucose Level 117 Calcium Level 8.9 Phosphorus Level 2.8 Magnesium Level 2.1 Medications Medications Current Medications Pantoprazole (Protonix Iv) 40 mg DAILY@06 IV Last administered on 04/19/17 06: 23; Admin Dose 40 MG; Start 04/15/17 at 06:00 Atorvastatin Calcium (Lipitor) 40 mg QHS GTB Last administered on 04/18/17 22: 28; Admin Dose 40 MG; Start 04/14/17 at 21:00 Bisacodyl (Dulcolax Supp) 10 mg Q2D [place] Last administered on 04/18/17 18:14; Admin Dose 10 MG; Start 04/14/17 at 17:30 Calcium Carbonate (Oyster Shell Calcium) 1.25 gm DAILY GTB Last administered on 04/19/17 08:23; Admin Dose 1.25 GM; Start 04/15/17 at 09:00 Chlorhexidine Gluconate (Peridex) 15 ml Q12 MM Last administered on 04/19/17 08:21; Admin Dose 15 ML; Start 04/14/17 at 21:00 Diltiazem HCl (Cardizem Sr) 60 mg BID PO Last administered on 04/19/17 08:23; Admin Dose 60 MG; Start 04/14/17 at 21:00 Labetalol HCl (Normodyne) 50 mg Q6 GTB Last administered on 04/19/17 06:24; Admin Dose 50 MG; Start 04/14/17 at 19:00 Losartan Potassium (Cozaar) 100 mg DAILY GTB Last administered on 04/19/17 08: 24; Admin Dose 100 MG; Start 04/15/17 at 00:30 Magnesium Hydroxide (Milk Of Mag) 30 ml DAILY GTB Last administered on 08:21; Admin Dose 30 ML; Start 04/15/17 at 09:00 Metoprolol Tartrate (Lopressor) 50 mg BID GTB Last administered on 04/19/17 08 :23; Admin Dose 50 MG; Start 04/14/17 at 21:00 Ondansetron HCl (Zofran Tab) 4 mg Q6H PRN GTB NAUSEA AND/OR VOMITING; Start at 17:30 Sodium Biphosphate/ Sodium Phosphate (Fleet Enema Pediatric) 66.6 ml Q3D PRN [place] CONSTIPATION; Start 04/14/17 at 17:30 Spironolactone 25 mg 25 mg BID GTB Last administered on 04/19/17 08:23; Admin Dose 25 MG; Start 04/14/17 at 21:00; Status Future hold Vancomycin HCl (Vancocin) 250 ml @ 125 mls/hr Q24H IVPB Last administered on 03:19; Admin Dose 125 MLS/HR; Start 04/15/17 at 03:00 Clonidine (Catapres) 0.1 mg Q6H PRN GTB SBP >170 Last administered on 06:16; Admin Dose 0.1 MG; Start 04/15/17 at 19:00 Nitroglycerin (Nitroglycerin 2% Oint) 1 inch Q8 PRN TD SBP >170 Last administered on 04/16/17 09:32; Admin Dose 1 INCH; Start 04/15/17 at 19:00 Hydralazine HCl (Apresoline) 50 mg Q8 PO Last administered on 04/19/17 06:23; Admin Dose 50 MG; Start 04/16/17 at 14:00 Acetaminophen (Tylenol Tab) 650 mg TID PO Last administered on 04/19/17 14:31 ; Admin Dose 650 MG; Start 04/16/17 at 09:00 Furosemide 40 mg 40 mg DAILY IV Last administered on 04/19/17 08:22; Admin Dose 40 MG; Start 04/16/17 at 09:30 Ertapenem/Sodium Chloride (Invanz/NS) 100 ml @ 200 mls/hr Q24H IVPB Last administered on 04/18/17 16:45; Admin Dose 200 MLS/HR; Start 04/16/17 at 16:00 Apixaban (Eliquis) 2.5 mg BID PO Last administered on 04/19/17t 08:24; Admin Dose 2.5 MG; Start 04/18/17 at 09:00 Miscellaneous Information (*Rx Drug Level Order Reminder*) 1 ONCE ONCE XX ; Start 04/20/17 at 02:00; Stop 04/20/17 at 02:01 MARY PAYNE MD Apr 19, 2017 17:04
[2017-04-19] MEDS: ATORVASTATIN 40 MG TAB GTB SCH (21:48)
[2017-04-20] VITALS (28 sets, daily range): BP systolic 123–174; BP diastolic 60–74; PULSE 60–75; RESP 12–23
[2017-04-20] MEDS: LABETALOL 100 MG TAB GTB SCH ×4 (00:23→17:43)
[2017-04-20] MEDS: VANCOMYCIN 1 GM in NS 250 ML IVPB SCH (03:51)
[2017-04-20] MEDS: LEVOTHYROXINE 125 MCG TAB GTB SCH ×2 (05:35→09:55)
[2017-04-20] MEDS: PANTOPRAZOLE 40 MG INJ IV SCH (05:35)
[2017-04-20 07:41] LABS: BASOPHILS % 0.5 % (0.0-2.0); EOSINOPHILS # 0.3 10^3/ul (0.0-0.5); EOSINOPHILS % 4.6 % (0.0-7.0); HEMATOCRIT 34.2 % (37.0-47.0); HEMOGLOBIN 10.3 g/dl (12.0-16.0); LYMPHOCYTES # 0.9 10^3/ul (0.8-2.9); LYMPHOCYTES % 16.3 % (15.0-51.0); MEAN CORPUSCULAR HEMOGLOBIN 28.2 pg (29.0-33.0); MEAN CORPUSCULAR HGB CONC 30.1 g/dl (32.0-37.0); MEAN CORPUSCULAR VOLUME 93.7 fl (82.0-101.0); MEAN PLATELET VOLUME 10.7 fl (7.4-10.4); MONOCYTE # 0.3 10^3/ul (0.3-0.9); NEUTROPHIL # 4.1 10^3/ul (1.6-7.5); NEUTROPHILS % 72.1 % (39.0-77.0); PLATELET COUNT 211 10^3/UL (140-415); RED BLOOD COUNT 3.65 10^6/ul (4.20-5.40); RED CELL DISTRIBUTION WIDTH 18.2 % (11.5-14.5); WHITE BLOOD COUNT 5.7 10^3/ul (4.8-10.8)
[2017-04-20 07:52] LABS: CALCIUM 9.2 mg/dl (8.4-10.2); CREATININE 0.71 mg/dl (0.44-1.00); MAGNESIUM 2.1 mg/dl (1.7-2.5); PHOSPHORUS 2.7 mg/dl (2.5-4.9); POTASSIUM 3.6 mmol/L (3.5-5.1)
[2017-04-20] MEDS: METOPROLOL 50 MG TAB GTB SCH ×2 (09:00→21:45)
--- NOTE | 2017-04-20 09:37 | PN ---
Date/Time of Note Date/Time of Note DATE: 04/20/17 TIME: 09:36 Assessment/Plan Lines/Catheters IV C[facility]ter Type (from [facility]): Peripheral IV Urinary Cath still in place: Yes Assessment/Plan Chief Complaint/Hosp Course 1. Acute lower gastrointestinal bleed. -Resolved Patient status post EGD with no evidence of active bleed. Tolerating Eliquis Monitor H&H levels close -Follow-up with GI 2. Sepsis secondary to gram-positive bacteremia source may be UTI Blood cultures may been a contaminant. Repeat blood cultures negative to date Continue antibiotics -Follow-up with infectious disease 3. Hypertensive urgency, -Resolved -Continue BP meds - CT scan of the brain-negative for any acute 5 4. Ventilator dependent respiratory failure. The patient's vent settings have been reviewed. Place see pulmonary consult for evaluation. We will monitor closely. 5. Dysphagia status post PEG. -Tolerating tube feeding Monitor 6. Atrial fibrillation. The patient's rate is currently controlled. Continue metoprolol, diltiazem, and digoxin. Resume anticoagulation, monitor H&H Discussed with cardiology 7. Congestive heart failure. The patient is currently decompensated. Chest x- ray shows pulmonary congestion. Continue diuretics Follow-up with cardiology 8. 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 Continue to monitor. 9. History of cerebrovascular accident. Continue medical management. 10. Hypernatremia Resolved 11. Hypothyroidism. Continue Synthroid. 12. Gastrointestinal and deep venous thrombosis prophylaxis. Continue proton pump inhibitor and sequential leg squeezers. 15. Anemia secondary to gastrointestinal bleed as stated above. We will monitor hemoglobin and hematocrit levels 16. History of arthritis We will place the patient on routine Tylenol Elevated troponin likely non-STEMI type II We will follow-up with cardiology continue medical management Problems: Subjective 24 Hr Interval Summary Free Text/Dictation Patient seen and examined No events overnight Pending transfer to [place] Exam/Review of Systems Vital Signs Vitals Vital Signs Date Time Temp Pulse Resp B/P Pulse Ox O2 Delivery O2 Flow Rate FiO2 04/20/17 08:37 72 04/20/17 08:37 97.8 18 150/74 95 04/20/17 05:03 35 04/17/17 16:06 Mechanical Ventilator Intake and Output 04/19/17 04/19/17 04/20/17 15:00 23:00 07:00 Intake Total 800 ml 775 ml Output Total 700 ml 700 ml Balance 100 ml 75 ml Exam EENT: Head is normocephalic. NECK: Supple. HEART: Regular rate LUNGS: Show diminished breath sounds at base. ABDOMEN: Soft, nontender to palpation without rebound or guarding. EXTREMITIES: Negative for clubbing, cyanosis. DERMATOLOGIC: No rashes. MUSCULOSKELETAL: No joint effusions, NEUROLOGIC: No change in exam. Results Result Diagram: 04/20/17 0701 04/20/17 0701 Results 24 hrs Laboratory Tests Test 04/19/17 17:45 04/20/17 02:30 04/20/17 07:01 Lactic Acid Level 1.2 Vancomycin Level Trough 16.7 White Blood Count 5.7 # Red Blood Count 3.65 L Hemoglobin 10.3 L Hematocrit 34.2 L Mean Corpuscular Volume 93.7 Mean Corpuscular Hemoglobin 28.2 L Mean Corpuscular Hemoglobin Concent 30.1 L Red Cell Distribution Width 18.2 H Platelet Count 211 Mean Platelet Volume 10.7 H Neutrophils % 72.1 Lymphocytes % 16.3 Monocytes % 6.0 Eosinophils % 4.6 Basophils % 0.5 Nucleated Red Blood Cells % 0.0 Neutrophils # 4.1 Lymphocytes # 0.9 Monocytes # 0.3 Eosinophils # 0.3 Basophils # 0.0 Nucleated Red Blood Cells # 0.0 Sodium Level 143 Potassium Level 3.6 Chloride Level 97 Carbon Dioxide Level 34 H Anion Gap 16 Blood Urea Nitrogen 20 Creatinine 0.71 Glucose Level 120 Calcium Level 9.2 Phosphorus Level 2.7 Magnesium Level 2.1 Medications Medications Current Medications Pantoprazole (Protonix Iv) 40 mg DAILY@06 IV Last administered on 04/20/17 05: 35; Admin Dose 40 MG; Start 04/15/17 at 06:00 Atorvastatin Calcium (Lipitor) 40 mg QHS GTB Last administered on 04/19/17 21: 48; Admin Dose 40 MG; Start 04/14/17 at 21:00 Bisacodyl (Dulcolax Supp) 10 mg Q2D [place] Last administered on 04/18/17 18:14; Admin Dose 10 MG; Start 04/14/17 at 17:30 Calcium Carbonate (Oyster Shell Calcium) 1.25 gm DAILY GTB Last administered on 04/19/17 08:23; Admin Dose 1.25 GM; Start 04/15/17 at 09:00 Chlorhexidine Gluconate (Peridex) 15 ml Q12 MM Last administered on 04/19/17 21:47; Admin Dose 15 ML; Start 04/14/17 at 21:00 Diltiazem HCl (Cardizem Sr) 60 mg BID PO Last administered on 04/19/17 21:51; Admin Dose 60 MG; Start 04/14/17 at 21:00 Labetalol HCl (Normodyne) 50 mg Q6 GTB Last administered on 04/20/17 05:36; Admin Dose 50 MG; Start 04/14/17 at 19:00 Losartan Potassium (Cozaar) 100 mg DAILY GTB Last administered on 04/19/17 08: 24; Admin Dose 100 MG; Start 04/15/17 at 00:30 Magnesium Hydroxide (Milk Of Mag) 30 ml DAILY GTB Last administered on 08:21; Admin Dose 30 ML; Start 04/15/17 at 09:00 Metoprolol Tartrate (Lopressor) 50 mg BID GTB Last administered on 04/19/17 21 :50; Admin Dose 50 MG; Start 04/14/17 at 21:00 Ondansetron HCl (Zofran Tab) 4 mg Q6H PRN GTB NAUSEA AND/OR VOMITING; Start at 17:30 Sodium Biphosphate/ Sodium Phosphate (Fleet Enema Pediatric) 66.6 ml Q3D PRN [place] CONSTIPATION; Start 04/14/17 at 17:30 Spironolactone 25 mg 25 mg BID GTB Last administered on 04/19/17 21:47; Admin Dose 25 MG; Start 04/14/17 at 21:00; Status Future hold Vancomycin HCl (Vancocin) 250 ml @ 125 mls/hr Q24H IVPB Last administered on 03:51; Admin Dose 125 MLS/HR; Start 04/15/17 at 03:00 Clonidine (Catapres) 0.1 mg Q6H PRN GTB SBP >170 Last administered on 06:16; Admin Dose 0.1 MG; Start 04/15/17 at 19:00 Nitroglycerin (Nitroglycerin 2% Oint) 1 inch Q8 PRN TD SBP >170 Last administered on 04/16/17 09:32; Admin Dose 1 INCH; Start 04/15/17 at 19:00 Hydralazine HCl (Apresoline) 50 mg Q8 PO Last administered on 04/20/17 05:36; Admin Dose 50 MG; Start 04/16/17 at 14:00 Acetaminophen (Tylenol Tab) 650 mg TID PO Last administered on 04/19/17 21:48 ; Admin Dose 650 MG; Start 04/16/17 at 09:00 Furosemide 40 mg 40 mg DAILY IV Last administered on 04/19/17 08:22; Admin Dose 40 MG; Start 04/16/17 at 09:30 Ertapenem/Sodium Chloride (Invanz/NS) 100 ml @ 200 mls/hr Q24H IVPB Last administered on 04/19/17 16:30; Admin Dose 200 MLS/HR; Start 04/16/17 at 16:00 Apixaban (Eliquis) 2.5 mg BID PO Last administered on 04/19/17 21:47; Admin Dose 2.5 MG; Start 04/18/17 at 09:00 NIRMALA TAAVREZ DO Apr 20, 2017 09:37
[2017-04-20] MEDS: SPIRONOLACTONE 25 MG TAB GTB SCH ×2 (09:54→21:44)
[2017-04-20] MEDS: CALCIUM CARBONATE 1.25 GM TAB GTB SCH (09:55)
[2017-04-20] MEDS: LOSARTAN 50 MG TAB GTB SCH (09:55)
[2017-04-20] MEDS: APIXABAN 5 MG TABLET PO SCH ×2 (09:56→21:42)
[2017-04-20] MEDS: ACETAMINOPHEN 325 MG TAB PO SCH ×3 (09:56→21:42)
[2017-04-20] MEDS: DILTIAZEM (SR) 60 MG CAP PO SCH ×2 (09:57→21:43)
[2017-04-20] MEDS: MAGNESIUM HYDROXIDE 30ML CUP GTB SCH (09:57)
[2017-04-20] MEDS: CHLORHEXIDINE GLUCONATE 15 ML UD CUP MM SCH ×2 (09:57→21:42)
[2017-04-20] MEDS: FUROSEMIDE 40 MG INJ IV SCH (09:58)
--- NOTE | 2017-04-20 11:38 | CONS ---
Date/Time of Note Date/Time of Note DATE: 04/20/17 TIME: 11:35 Assessment/Plan Assessment/Plan Additional Assessment/Plan Ventilator setting; AC of 12, tidal volume 450, PEEP of 5, 35% FiO2. Assessment recommendations; next 1. Patient admitted for pneumonia and sepsis with gram-negative bacteremia as well as UTI, currently on appropriate antibiotic regimen. 2. Anemia. 3. Chronic respiratory failure which is ventilator dependent. 4. Advanced dementia. Continue current treatment. Consultation Date/Type/Reason Admit Date/Time Apr 14, 2017 at 17:19 Initial Consult Date 04/15/17 Type of Consultation: Pulmonary 24 HR Interval Summary Free Text/Dictation Patient condition remains stable. Remains essentially unresponsive. Has remained hemodynamically stable. General exam; elderly male, on ventilator via tracheostomy currently in no distress. Exam/Review of Systems Vital Signs Vitals Vital Signs Date Time Temp Pulse Resp B/P Pulse Ox O2 Delivery O2 Flow Rate FiO2 04/20/17 08:37 72 04/20/17 08:37 97.8 18 150/74 95 04/20/17 08:00 35 04/17/17 16:06 Mechanical Ventilator Intake and Output 04/19/17 04/19/17 04/20/17 15:00 23:00 07:00 Intake Total 800 ml 775 ml Output Total 700 ml 700 ml Balance 100 ml 75 ml Exam HEENT exam; supple neck, no JVD. No lymphadenopathy. Midline trachea. No thyromegaly. Tracheostomy in place. Chest exam; diminished but clear breath sound. S1-S2 audible, no murmurs. Regular rhythm. Abdomen exam; soft, no organomegaly. Bowel sounds audible. G-tube in place. Extremity exam; no peripheral edema. [employer] exam; patient remains essentially unresponsive. Results Result Diagram: 04/20/17 0704/20/17 07 Results 24 hrs Laboratory Tests Test 04/19/17 17:45 04/20/17 02:30 04/20/17 07:01 Lactic Acid Level 1.2 Vancomycin Level Trough 16.7 White Blood Count 5.7 # Red Blood Count 3.65 L Hemoglobin 10.3 L Hematocrit 34.2 L Mean Corpuscular Volume 93.7 Mean Corpuscular Hemoglobin 28.2 L Mean Corpuscular Hemoglobin Concent 30.1 L Red Cell Distribution Width 18.2 H Platelet Count 211 Mean Platelet Volume 10.7 H Neutrophils % 72.1 Lymphocytes % 16.3 Monocytes % 6.0 Eosinophils % 4.6 Basophils % 0.5 Nucleated Red Blood Cells % 0.0 Neutrophils # 4.1 Lymphocytes # 0.9 Monocytes # 0.3 Eosinophils # 0.3 Basophils # 0.0 Nucleated Red Blood Cells # 0.0 Sodium Level 143 Potassium Level 3.6 Chloride Level 97 Carbon Dioxide Level 34 H Anion Gap 16 Blood Urea Nitrogen 20 Creatinine 0.71 Glucose Level 120 Calcium Level 9.2 Phosphorus Level 2.7 Magnesium Level 2.1 Medications Medications Current Medications Pantoprazole (Protonix Iv) 40 mg DAILY@06 IV Last administered on 04/20/17 05: 35; Admin Dose 40 MG; Start 04/15/17 at 06:00 Atorvastatin Calcium (Lipitor) 40 mg QHS GTB Last administered on 04/19/17 21: 48; Admin Dose 40 MG; Start 04/14/17 at 21:00 Bisacodyl (Dulcolax Supp) 10 mg Q2D [place] Last administered on 04/18/17 18:14; Admin Dose 10 MG; Start 04/14/17 at 17:30 Calcium Carbonate (Oyster Shell Calcium) 1.25 gm DAILY GTB Last administered on 04/20/17 09:55; Admin Dose 1.25 GM; Start 04/15/17 at 09:00 Chlorhexidine Gluconate (Peridex) 15 ml Q12 MM Last administered on 04/20/17 09:57; Admin Dose 15 ML; Start 04/14/17 at 21:00 Diltiazem HCl (Cardizem Sr) 60 mg BID PO Last administered on 04/20/17 09:57; Admin Dose 60 MG; Start 04/14/17 at 21:00 Labetalol HCl (Normodyne) 50 mg Q6 GTB Last administered on 04/20/17 05:36; Admin Dose 50 MG; Start 04/14/17 at 19:00 Losartan Potassium (Cozaar) 100 mg DAILY GTB Last administered on 04/20/17 09: 55; Admin Dose 100 MG; Start 04/15/17 at 00:30 Magnesium Hydroxide (Milk Of Mag) 30 ml DAILY GTB Last administered on 09:57; Admin Dose 30 ML; Start 04/15/17 at 09:00 Metoprolol Tartrate (Lopressor) 50 mg BID GTB Last administered on 04/20/17 09 :00; Admin Dose 50 MG; Start 04/14/17 at 21:00 Ondansetron HCl (Zofran Tab) 4 mg Q6H PRN GTB NAUSEA AND/OR VOMITING; Start at 17:30 Sodium Biphosphate/ Sodium Phosphate (Fleet Enema Pediatric) 66.6 ml Q3D PRN [place] CONSTIPATION; Start 04/14/17 at 17:30 Spironolactone (Aldactone) 25 mg BID GTB Last administered on 04/20/17 09:54; Admin Dose 25 MG; Start 04/14/17 at 21:00; Status Future hold Clonidine (Catapres) 0.1 mg Q6H PRN GTB SBP >170 Last administered on 06:16; Admin Dose 0.1 MG; Start 04/15/17 at 19:00 Nitroglycerin (Nitroglycerin 2% Oint) 1 inch Q8 PRN TD SBP >170 Last administered on 04/16/17 09:32; Admin Dose 1 INCH; Start 04/15/17 at 19:00 Hydralazine HCl (Apresoline) 50 mg Q8 PO Last administered on 04/20/17 05:36; Admin Dose 50 MG; Start 04/16/17 at 14:00 Acetaminophen (Tylenol Tab) 650 mg TID PO Last administered on 04/20/17 09:56 ; Admin Dose 650 MG; Start 04/16/17 at 09:00 Furosemide 40 mg 40 mg DAILY IV Last administered on 04/20/17 09:58; Admin Dose 40 MG; Start 04/16/17 at 09:30 Ertapenem/Sodium Chloride (Invanz/NS) 100 ml @ 200 mls/hr Q24H IVPB Last administered on 04/19/17 16:30; Admin Dose 200 MLS/HR; Start 04/16/17 at 16:00 Apixaban 2.5 mg 2.5 mg BID PO Last administered on 04/20/17 09:56; Admin Dose 2.5 MG; Start 04/18/17 at 09:00 Vancomycin HCl/ Sodium Chloride (Vancocin/NS) 150 ml @ 75 mls/hr Q24H IVPB ; Start 04/21/17 at 04:00 NICOLAS VASQUEZ Apr 20, 2017 11:38
--- NOTE | 2017-04-20 13:28 | CONS ---
Date/Time of Note Date/Time of Note DATE: 04/20/17 TIME: 13:28 Assessment/Plan Assessment/Plan Chief Complaint/Hosp Course 87-year-old female with history of vent dependent respiratory failure, atrial fibrillation, CVA, encephalopathy was brought to the emergency room from subacute facility for anemia and passing black colored stool. And this was verified with the staff nurse on the floor. No nausea no vomiting. No chest pain or shortness of breath. Most of the information gathered by reviewing the chart. Patient was not in the poor position to give any history. Problems: Additional Assessment/Plan #1 GI bleeding with a positive stool guaiac and melanotic stool 2. Anemia 3. Atrial fibrillation on Eliquis 4. Vent dependent respiratory for 5. Hypertension 6. Hypothyroid 7. CVA 8. Encephalopathy 9. UTI, polymicrobial infection Plan Resume Eliquis Monitor H&H and transfuse if hemoglobin less than 7.5 PPI Continue feeding patient is tolerating it As per the family no problem Consultation Date/Type/Reason Admit Date/Time Apr 14, 2017 at 17:19 Initial Consult Date 04/15/17 Type of Consultation: Pulmonary 24 HR Interval Summary Subjective hx not possible: pt non-verbal Exam/Review of Systems Vital Signs Vitals Vital Signs Date Time Temp Pulse Resp B/P Pulse Ox O2 Delivery O2 Flow Rate FiO2 04/20/17 12:41 64 04/20/17 08:37 97.8 18 150/74 95 04/20/17 08:00 35 04/17/17 16:06 Mechanical Ventilator Intake and Output 04/19/17 04/19/17 04/20/17 15:00 23:00 07:00 Intake Total 800 ml 775 ml Output Total 700 ml 700 ml Balance 100 ml 75 ml Exam Constitutional: alert, oriented, well developed Psych: nl mood/affect, no complaints Head: atraumatic, normocephalic Eyes: EOMI, PERRL, nl conjunctiva, nl lids, nl sclera ENMT: nl external ears & nose, nl lips & teeth, nl nasal mucosa & septum Neck: non-tender, supple Respiratory: clear to auscultation, normal air movement Cardiovascular: nl pulses, regular rate and rhythm Gastrointestinal: nl liver, spleen, non-tender, soft Musculoskeletal: nl extremities to inspection, nl gait and stance Extremities: normal pulses Neurological: API PRODUCT MANAGER II-XII intact, nl mental status, nl speech, nl strength Skin: nl turgor, No rash or lesions Lymph: nl lymph nodes Results Result Diagram: 04/20/17 0704/20/17 07 Results 24 hrs Laboratory Tests Test 04/19/17 17:45 04/20/17 02:30 04/20/17 07:01 Lactic Acid Level 1.2 Vancomycin Level Trough 16.7 White Blood Count 5.7 # Red Blood Count 3.65 L Hemoglobin 10.3 L Hematocrit 34.2 L Mean Corpuscular Volume 93.7 Mean Corpuscular Hemoglobin 28.2 L Mean Corpuscular Hemoglobin Concent 30.1 L Red Cell Distribution Width 18.2 H Platelet Count 211 Mean Platelet Volume 10.7 H Neutrophils % 72.1 Lymphocytes % 16.3 Monocytes % 6.0 Eosinophils % 4.6 Basophils % 0.5 Nucleated Red Blood Cells % 0.0 Neutrophils # 4.1 Lymphocytes # 0.9 Monocytes # 0.3 Eosinophils # 0.3 Basophils # 0.0 Nucleated Red Blood Cells # 0.0 Sodium Level 143 Potassium Level 3.6 Chloride Level 97 Carbon Dioxide Level 34 H Anion Gap 16 Blood Urea Nitrogen 20 Creatinine 0.71 Glucose Level 120 Calcium Level 9.2 Phosphorus Level 2.7 Magnesium Level 2.1 Medications Medications Current Medications Pantoprazole (Protonix Iv) 40 mg DAILY@06 IV Last administered on 04/20/17 05: 35; Admin Dose 40 MG; Start 04/15/17 at 06:00 Atorvastatin Calcium (Lipitor) 40 mg QHS GTB Last administered on 04/19/17 21: 48; Admin Dose 40 MG; Start 04/14/17 at 21:00 Bisacodyl (Dulcolax Supp) 10 mg Q2D [place] Last administered on 04/18/17 18:14; Admin Dose 10 MG; Start 04/14/17 at 17:30 Calcium Carbonate (Oyster Shell Calcium) 1.25 gm DAILY GTB Last administered on 04/20/17 09:55; Admin Dose 1.25 GM; Start 04/15/17 at 09:00 Chlorhexidine Gluconate (Peridex) 15 ml Q12 MM Last administered on 04/20/17 09:57; Admin Dose 15 ML; Start 04/14/17 at 21:00 Diltiazem HCl (Cardizem Sr) 60 mg BID PO Last administered on 04/20/17 09:57; Admin Dose 60 MG; Start 04/14/17 at 21:00 Labetalol HCl (Normodyne) 50 mg Q6 GTB Last administered on 04/20/17 12:28; Admin Dose 50 MG; Start 04/14/17 at 19:00 Losartan Potassium (Cozaar) 100 mg DAILY GTB Last administered on 04/20/17 09: 55; Admin Dose 100 MG; Start 04/15/17 at 00:30 Magnesium Hydroxide (Milk Of Mag) 30 ml DAILY GTB Last administered on 09:57; Admin Dose 30 ML; Start 04/15/17 at 09:00 Metoprolol Tartrate (Lopressor) 50 mg BID GTB Last administered on 04/20/17 09 :00; Admin Dose 50 MG; Start 04/14/17 at 21:00 Ondansetron HCl (Zofran Tab) 4 mg Q6H PRN GTB NAUSEA AND/OR VOMITING; Start at 17:30 Sodium Biphosphate/ Sodium Phosphate (Fleet Enema Pediatric) 66.6 ml Q3D PRN [place] CONSTIPATION; Start 04/14/17 at 17:30 Spironolactone (Aldactone) 25 mg BID GTB Last administered on 04/20/17 09:54; Admin Dose 25 MG; Start 04/14/17 at 21:00; Status Future hold Clonidine (Catapres) 0.1 mg Q6H PRN GTB SBP >170 Last administered on 06:16; Admin Dose 0.1 MG; Start 04/15/17 at 19:00 Nitroglycerin (Nitroglycerin 2% Oint) 1 inch Q8 PRN TD SBP >170 Last administered on 04/16/17 09:32; Admin Dose 1 INCH; Start 04/15/17 at 19:00 Hydralazine HCl (Apresoline) 50 mg Q8 PO Last administered on 04/20/17 05:36; Admin Dose 50 MG; Start 04/16/17 at 14:00 Acetaminophen (Tylenol Tab) 650 mg TID PO Last administered on 04/20/17 12:27 ; Admin Dose 650 MG; Start 04/16/17 at 09:00 Furosemide 40 mg 40 mg DAILY IV Last administered on 04/20/17 09:58; Admin Dose 40 MG; Start 04/16/17 at 09:30 Ertapenem/Sodium Chloride (Invanz/NS) 100 ml @ 200 mls/hr Q24H IVPB Last administered on 04/19/17 16:30; Admin Dose 200 MLS/HR; Start 04/16/17 at 16:00 Apixaban 2.5 mg 2.5 mg BID PO Last administered on 04/20/17 09:56; Admin Dose 2.5 MG; Start 04/18/17 at 09:00 Vancomycin HCl/ Sodium Chloride (Vancocin/NS) 150 ml @ 75 mls/hr Q24H IVPB ; Start 04/21/17 at 04:00 MARY PAYNE MD Apr 20, 2017 13:28
--- NOTE | 2017-04-20 14:33 | CONS ---
Date/Time of Note Date/Time of Note DATE: 04/20/17 TIME: 14:32 Assessment/Plan Assessment/Plan Chief Complaint/Hosp Course No changes overnight per report, looks comfortable no fevers Microbiology: Blood culture growing coag negative staph species on admission urine culture growing Morganella Klebsiella ESBL E. coli ESBL Antimicrobials: Invanz vancomycin Indwelling's: Tracheostomy PEG Lazar peripheral IV Physical examination: Chronically ill-appearing elderly woman who is in no distress. Head atraumatic, normocephalic, sclera nonicteric. Bugle mucosa dry. Neck is supple, tracheostomy present. Chest rise symmetrical, breath sounds diminished basis. Heart: S1-S2. Abdomen soft, bowel tones present. Extremities without cyanosis Assessment: 1. Coag negative staph bacteremia, likely contaminant 2. Polymicrobial UTI 2. Healthcare associated pneumonia 4. Acute GI bleed/anemia==> EGD + chronic gastritis 5. Hypertension 6. Coronary artery disease history of atrial fibrillation 7. Chronic encephalopathy status post CVA Plan: Remains stable, repeat blood cultures negative, continue antibiotics, vent support per pulmonary Discussed with staff Problems: Consultation Date/Type/Reason Admit Date/Time Apr 14, 2017 at 17:19 Initial Consult Date 04/15/17 Type of Consultation: id Exam/Review of Systems Vital Signs Vitals Vital Signs Date Time Temp Pulse Resp B/P Pulse Ox O2 Delivery O2 Flow Rate FiO2 04/20/17 12:41 64 04/20/17 08:37 97.8 18 150/74 95 04/20/17 08:00 35 04/17/17 16:06 Mechanical Ventilator Intake and Output 04/19/17 04/19/17 04/20/17 15:00 23:00 07:00 Intake Total 800 ml 775 ml Output Total 700 ml 700 ml Balance 100 ml 75 ml Results Result Diagram: 04/20/17 0701 04/20/17 0701 Results 24 hrs Laboratory Tests Test 04/19/17 17:45 04/20/17 02:30 04/20/17 07:01 Lactic Acid Level 1.2 Vancomycin Level Trough 16.7 White Blood Count 5.7 # Red Blood Count 3.65 L Hemoglobin 10.3 L Hematocrit 34.2 L Mean Corpuscular Volume 93.7 Mean Corpuscular Hemoglobin 28.2 L Mean Corpuscular Hemoglobin Concent 30.1 L Red Cell Distribution Width 18.2 H Platelet Count 211 Mean Platelet Volume 10.7 H Neutrophils % 72.1 Lymphocytes % 16.3 Monocytes % 6.0 Eosinophils % 4.6 Basophils % 0.5 Nucleated Red Blood Cells % 0.0 Neutrophils # 4.1 Lymphocytes # 0.9 Monocytes # 0.3 Eosinophils # 0.3 Basophils # 0.0 Nucleated Red Blood Cells # 0.0 Sodium Level 143 Potassium Level 3.6 Chloride Level 97 Carbon Dioxide Level 34 H Anion Gap 16 Blood Urea Nitrogen 20 Creatinine 0.71 Glucose Level 120 Calcium Level 9.2 Phosphorus Level 2.7 Magnesium Level 2.1 Medications Medications Current Medications Pantoprazole (Protonix Iv) 40 mg DAILY@06 IV Last administered on 04/20/17 05: 35; Admin Dose 40 MG; Start 04/15/17 at 06:00 Atorvastatin Calcium (Lipitor) 40 mg QHS GTB Last administered on 04/19/17 21: 48; Admin Dose 40 MG; Start 04/14/17 at 21:00 Bisacodyl (Dulcolax Supp) 10 mg Q2D [place] Last administered on 04/18/17 18:14; Admin Dose 10 MG; Start 04/14/17 at 17:30 Calcium Carbonate (Oyster Shell Calcium) 1.25 gm DAILY GTB Last administered on 04/20/17 09:55; Admin Dose 1.25 GM; Start 04/15/17 at 09:00 Chlorhexidine Gluconate (Peridex) 15 ml Q12 MM Last administered on 04/20/17 09:57; Admin Dose 15 ML; Start 04/14/17 at 21:00 Diltiazem HCl (Cardizem Sr) 60 mg BID PO Last administered on 04/20/17 09:57; Admin Dose 60 MG; Start 04/14/17 at 21:00 Labetalol HCl (Normodyne) 50 mg Q6 GTB Last administered on 04/20/17 12:28; Admin Dose 50 MG; Start 04/14/17 at 19:00 Losartan Potassium (Cozaar) 100 mg DAILY GTB Last administered on 04/20/17 09: 55; Admin Dose 100 MG; Start 04/15/17 at 00:30 Magnesium Hydroxide (Milk Of Mag) 30 ml DAILY GTB Last administered on 09:57; Admin Dose 30 ML; Start 04/15/17 at 09:00 Metoprolol Tartrate (Lopressor) 50 mg BID GTB Last administered on 04/20/17 09 :00; Admin Dose 50 MG; Start 04/14/17 at 21:00 Ondansetron HCl (Zofran Tab) 4 mg Q6H PRN GTB NAUSEA AND/OR VOMITING; Start at 17:30 Sodium Biphosphate/ Sodium Phosphate (Fleet Enema Pediatric) 66.6 ml Q3D PRN [place] CONSTIPATION; Start 04/14/17 at 17:30 Spironolactone (Aldactone) 25 mg BID GTB Last administered on 04/20/17 09:54; Admin Dose 25 MG; Start 04/14/17 at 21:00; Status Future hold Clonidine (Catapres) 0.1 mg Q6H PRN GTB SBP >170 Last administered on 06:16; Admin Dose 0.1 MG; Start 04/15/17 at 19:00 Nitroglycerin (Nitroglycerin 2% Oint) 1 inch Q8 PRN TD SBP >170 Last administered on 04/16/17 09:32; Admin Dose 1 INCH; Start 04/15/17 at 19:00 Hydralazine HCl (Apresoline) 50 mg Q8 PO Last administered on 04/20/17 05:36; Admin Dose 50 MG; Start 04/16/17 at 14:00 Acetaminophen (Tylenol Tab) 650 mg TID PO Last administered on 04/20/17 12:27 ; Admin Dose 650 MG; Start 04/16/17 at 09:00 Furosemide 40 mg 40 mg DAILY IV Last administered on 04/20/17 09:58; Admin Dose 40 MG; Start 04/16/17 at 09:30 Ertapenem/Sodium Chloride (Invanz/NS) 100 ml @ 200 mls/hr Q24H IVPB Last administered on 04/19/17 16:30; Admin Dose 200 MLS/HR; Start 04/16/17 at 16:00 Apixaban 2.5 mg 2.5 mg BID PO Last administered on 04/20/17 09:56; Admin Dose 2.5 MG; Start 04/18/17 at 09:00 Vancomycin HCl/ Sodium Chloride (Vancocin/NS) 150 ml @ 75 mls/hr Q24H IVPB ; Start 04/21/17 at 04:00 NIKOLAS AWTTS NP Apr 20, 2017 14:33
--- NOTE | 2017-04-20 16:48 | PN ---
Date/Time of Note Date/Time of Note DATE: 04/20/17 TIME: 16:46 Assessment/Plan VTE Prophylaxis VTE Prophylaxis Intervention: other Lines/Catheters IV Catheter Type (from Nrs): Saline Lock Urinary Cath still in place: Yes Reason Cath still needed: other (indicate) Assessment/Plan Chief Complaint/Hosp Course 1. Gastrointestinal bleed. - Follow-up with GI rec. pt is back on eliquis as long as ok with GI. 2. Sepsis secondary to gram-positive bacteremia: -Follow-up with infectious disease regarding abx 3. Afib: ON HR control off of dig now cont betablocker and cardizem. pt is back on eliquis as well. 4. Ventilator dependent respiratory failure. cont resp care. f/u with pulm 5. Dysphagia status post PEG. 6. HTN: cont betablocker, hydralazine caridizem cont aldactone lasix 7. Congestive heart failure/. fluid overload cont ARB LASIX as needed/ tolerated. 8. 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 Continue to monitor. 9. History of cerebrovascular accident. Continue medical management. Problems: Subjective 24 Hr Interval Summary Free Text/Dictation d/w staff and rhythm was reviewed. pt remains in Afib. HR has been under good control . pt remains nonverbal on vent s/p trach. OBJECTIVE: General: no acute distress S/P trach on vent HEENT: NC/AT. pupils are equal. round. NECK: s/p trach. . no stridor. CV: irregularly irregular. . systolic murmur; no gallop or rubs. PULM: no wheezing anteriorly. GI: SOFT, NT, ND, no rebound or guarding Extremity: no significant LE edema. no clubbing. neuro: awake and appears alert. Psych: calm and pleasant rectal: deferred Derm: no active bleeding Exam/Review of Systems Vital Signs Vitals Vital Signs Date Time Temp Pulse Resp B/P Pulse Ox O2 Delivery O2 Flow Rate FiO2 04/20/17 16:43 64 04/20/17 16:30 97.9 18 143/60 98 04/20/17 16:22 Mechanical Ventilator 04/20/17 08:00 35 Intake and Output 04/19/17 04/19/17 04/20/17 15:00 23:00 07:00 Intake Total 800 ml 775 ml Output Total 700 ml 700 ml Balance 100 ml 75 ml Results Result Diagram: 04/20/17 0701 04/20/17 0701 Results 24 hrs Laboratory Tests Test 04/19/17 17:45 04/20/17 02:30 04/20/17 07:01 Lactic Acid Level 1.2 Vancomycin Level Trough 16.7 White Blood Count 5.7 # Red Blood Count 3.65 L Hemoglobin 10.3 L Hematocrit 34.2 L Mean Corpuscular Volume 93.7 Mean Corpuscular Hemoglobin 28.2 L Mean Corpuscular Hemoglobin Concent 30.1 L Red Cell Distribution Width 18.2 H Platelet Count 211 Mean Platelet Volume 10.7 H Neutrophils % 72.1 Lymphocytes % 16.3 Monocytes % 6.0 Eosinophils % 4.6 Basophils % 0.5 Nucleated Red Blood Cells % 0.0 Neutrophils # 4.1 Lymphocytes # 0.9 Monocytes # 0.3 Eosinophils # 0.3 Basophils # 0.0 Nucleated Red Blood Cells # 0.0 Sodium Level 143 Potassium Level 3.6 Chloride Level 97 Carbon Dioxide Level 34 H Anion Gap 16 Blood Urea Nitrogen 20 Creatinine 0.71 Glucose Level 120 Calcium Level 9.2 Phosphorus Level 2.7 Magnesium Level 2.1 Medications Medications Current Medications Pantoprazole (Protonix Iv) 40 mg DAILY@06 IV Last administered on 04/20/17 05: 35; Admin Dose 40 MG; Start 04/15/17 at 06:00 Atorvastatin Calcium (Lipitor) 40 mg QHS GTB Last administered on 04/19/17 21: 48; Admin Dose 40 MG; Start 04/14/17 at 21:00 Bisacodyl (Dulcolax Supp) 10 mg Q2D [place] Last administered on 04/18/17 18:14; Admin Dose 10 MG; Start 04/14/17 at 17:30 Calcium Carbonate (Oyster Shell Calcium) 1.25 gm DAILY GTB Last administered on 04/20/17 09:55; Admin Dose 1.25 GM; Start 04/15/17 at 09:00 Chlorhexidine Gluconate (Peridex) 15 ml Q12 MM Last administered on 04/20/17 09:57; Admin Dose 15 ML; Start 04/14/17 at 21:00 Diltiazem HCl (Cardizem Sr) 60 mg BID PO Last administered on 04/20/17 09:57; Admin Dose 60 MG; Start 04/14/17 at 21:00 Labetalol HCl (Normodyne) 50 mg Q6 GTB Last administered on 04/20/17 12:28; Admin Dose 50 MG; Start 04/14/17 at 19:00 Losartan Potassium (Cozaar) 100 mg DAILY GTB Last administered on 04/20/17 09: 55; Admin Dose 100 MG; Start 04/15/17 at 00:30 Magnesium Hydroxide (Milk Of Mag) 30 ml DAILY GTB Last administered on 09:57; Admin Dose 30 ML; Start 04/15/17 at 09:00 Metoprolol Tartrate (Lopressor) 50 mg BID GTB Last administered on 04/20/17 09 :00; Admin Dose 50 MG; Start 04/14/17 at 21:00 Ondansetron HCl (Zofran Tab) 4 mg Q6H PRN GTB NAUSEA AND/OR VOMITING; Start at 17:30 Sodium Biphosphate/ Sodium Phosphate (Fleet Enema Pediatric) 66.6 ml Q3D PRN [place] CONSTIPATION; Start 04/14/17 at 17:30 Spironolactone (Aldactone) 25 mg BID GTB Last administered on 04/20/17 09:54; Admin Dose 25 MG; Start 04/14/17 at 21:00; Status Future hold Clonidine (Catapres) 0.1 mg Q6H PRN GTB SBP >170 Last administered on 06:16; Admin Dose 0.1 MG; Start 04/15/17 at 19:00 Nitroglycerin (Nitroglycerin 2% Oint) 1 inch Q8 PRN TD SBP >170 Last administered on 04/16/17 09:32; Admin Dose 1 INCH; Start 04/15/17 at 19:00 Hydralazine HCl (Apresoline) 50 mg Q8 PO Last administered on 04/20/17 14:57; Admin Dose 50 MG; Start 04/16/17 at 14:00 Acetaminophen (Tylenol Tab) 650 mg TID PO Last administered on 04/20/17 12:27 ; Admin Dose 650 MG; Start 04/16/17 at 09:00 Furosemide 40 mg 40 mg DAILY IV Last administered on 04/20/17 09:58; Admin Dose 40 MG; Start 04/16/17 at 09:30 Ertapenem/Sodium Chloride (Invanz/NS) 100 ml @ 200 mls/hr Q24H IVPB Last administered on 04/19/17 16:30; Admin Dose 200 MLS/HR; Start 04/16/17 at 16:00 Apixaban 2.5 mg 2.5 mg BID PO Last administered on 04/20/17 09:56; Admin Dose 2.5 MG; Start 04/18/17 at 09:00 Vancomycin HCl/ Sodium Chloride (Vancocin/NS) 150 ml @ 75 mls/hr Q24H IVPB ; Start 04/21/17 at 04:00 LETICIA MCWILLIAMS MD Apr 20, 2017 16:48
[2017-04-20] MEDS: BISACODYL 10 MG SUPP PR SCH (17:30)
[2017-04-20] MEDS: ERTAPENEM SODIUM 1 GM in SOD CHLORIDE 0.9% 100 ML IVPB SCH (17:41)
[2017-04-20] MEDS: ATORVASTATIN 40 MG TAB GTB SCH (21:43)
[2017-04-21] VITALS (32 sets, daily range): BP systolic 133–174; BP diastolic 64–97; PULSE 53–76; RESP 12–22
[2017-04-21] MEDS: LABETALOL 100 MG TAB GTB SCH ×4 (00:36→17:46)
[2017-04-21] MEDS: VANCOMYCIN 750 MG in SOD CHLORIDE 0.9% 150 ML IVPB SCH (04:57)
[2017-04-21] MEDS: PANTOPRAZOLE 40 MG INJ IV SCH (05:51)
[2017-04-21 07:06] LABS: BASOPHILS % 0.6 % (0.0-2.0); EOSINOPHILS # 0.3 10^3/ul (0.0-0.5); EOSINOPHILS % 4.5 % (0.0-7.0); HEMATOCRIT 33.6 % (37.0-47.0); HEMOGLOBIN 10.2 g/dl (12.0-16.0); LYMPHOCYTES % 15.8 % (15.0-51.0); MEAN CORPUSCULAR HEMOGLOBIN 28.3 pg (29.0-33.0); MEAN CORPUSCULAR HGB CONC 30.4 g/dl (32.0-37.0); MEAN CORPUSCULAR VOLUME 93.3 fl (82.0-101.0); MEAN PLATELET VOLUME 10.2 fl (7.4-10.4); MONOCYTE # 0.4 10^3/ul (0.3-0.9); MONOCYTES % 6.4 % (0.0-11.0); NEUTROPHIL # 4.8 10^3/ul (1.6-7.5); NEUTROPHILS % 72.4 % (39.0-77.0); PLATELET COUNT 205 10^3/UL (140-415); RED CELL DISTRIBUTION WIDTH 17.9 % (11.5-14.5); WHITE BLOOD COUNT 6.6 10^3/ul (4.8-10.8)
[2017-04-21] MEDS: APIXABAN 5 MG TABLET PO SCH ×2 (09:32→21:52)
[2017-04-21] MEDS: LEVOTHYROXINE 125 MCG TAB GTB SCH (09:33)
[2017-04-21] MEDS: ACETAMINOPHEN 325 MG TAB PO SCH ×3 (09:33→21:52)
[2017-04-21] MEDS: CALCIUM CARBONATE 1.25 GM TAB GTB SCH (09:35)
[2017-04-21] MEDS: SPIRONOLACTONE 25 MG TAB GTB SCH ×2 (09:35→21:53)
[2017-04-21] MEDS: LOSARTAN 50 MG TAB GTB SCH (09:35)
[2017-04-21] MEDS: METOPROLOL 50 MG TAB GTB SCH ×2 (09:36→21:53)
[2017-04-21] MEDS: FUROSEMIDE 40 MG INJ IV SCH (09:37)
[2017-04-21] MEDS: CHLORHEXIDINE GLUCONATE 15 ML UD CUP MM SCH ×2 (09:37→21:52)
[2017-04-21] MEDS: MAGNESIUM HYDROXIDE 30ML CUP GTB SCH (09:37)
[2017-04-21] MEDS: DILTIAZEM (SR) 60 MG CAP PO SCH ×2 (09:38→21:54)
--- NOTE | 2017-04-21 11:00 | GILP ---
DATE OF PROCEDURE: 04/14/2017 PROCEDURE PERFORMED: Esophagastroduodenoscopy INDICATION: An 87-year-old female undergoing this procedure for gastrointestinal bleeding. The patient was on Xarelto. The purpose of this procedure is to evaluate upper gastrointestinal tract and find out the source of bleeding. Her stool for occult blood was positive, and as per the report, she had a melanotic stool. The risk of the procedure, related complications, anesthetic risks and alternatives discussed with the daughter and informed consent was obtained. This procedure was done bedside. DESCRIPTION OF PROCEDURE: The patient was sedated by [employer]. After optimal sedation scope was passed into esophagus, which was grossly within normal limits. The Z-line was normal, no Alicia- Torres tears identified. Stomach mucosa revealed acute and chronic gastritis, 2 biopsies obtained to rule out Helicobacter pylori infection. Duodenum 1st and 2nd part were within normal limits. Rectal was done and no growth was seen. The internal stoma was examined. There was an erosion with protruding granulation tissue in the stomach. No capillary or active bleeding or blood was seen. The duodenum also both 1st and 2nd part including levels within normal limits. The scope was thus removed with excellent patient tolerance. IMPRESSION: 1. Gastritis, both acute and chronic. 2. Granulation tissue protruding into the stomach from the internal stoma. 3. Normal esophagus. 4. Normal Z-line. 5. Normal duodenal ampulla. PLAN: To continue with PPI. The patient can be started back on Xarelto or Eliquis. Dictated By: Charlie Rai MD /[email or web address] /Document#: [id number] ; Dr. Avendano
--- NOTE | 2017-04-21 13:40 | CONS ---
Date/Time of Note Date/Time of Note DATE: 04/21/17 TIME: 13:39 Assessment/Plan Assessment/Plan Additional Assessment/Plan Ventilator setting; AC of 12, tidal volume 450, PEEP of 5, 35% FiO2. Assessment recommendations; 1. Patient admitted for UTI and sepsis with significant clinical improvement. 2. Advanced dementia. 3. Chronic respiratory failure, ventilator dependent. Continue current treatment. Consultation Date/Type/Reason Admit Date/Time Apr 14, 2017 at 17:19 Initial Consult Date 04/15/17 Type of Consultation: Pulmonary 24 HR Interval Summary Free Text/Dictation Patient condition stable. Remains awake but unresponsive to any commands. Has remained hemodynamically stable. General exam; elderly woman, on ventilator via tracheostomy, currently in no distress. Exam/Review of Systems Vital Signs Vitals Vital Signs Date Time Temp Pulse Resp B/P Pulse Ox O2 Delivery O2 Flow Rate FiO2 04/21/17 12:27 62 04/21/17 11:43 98.4 18 140/67 92 04/21/17 10:00 Mechanical Ventilator 04/21/17 08:02 35 Intake and Output 04/20/17 04/20/17 04/21/17 15:00 23:00 07:00 Intake Total 750 ml 720 ml Output Total 900 ml 650 ml Balance -150 ml 70 ml Exam HEENT exam; supple neck, no JVD. No lymphadenopathy. Midline trachea. No thyromegaly. Tracheostomy in place with clean insertion site. Chest exam; clear to auscultation. S1-S2 audible, no murmurs. Regular rhythm. Abdomen exam; soft, no organomegaly. G-tube in place. Bowel sounds audible. Extremity exam; no peripheral edema. INFORMATICS PHYSICIAN LIAISON exam; patient is awake but remains unresponsive. Results Result Diagram: 04/21/17 0651 04/20/17 0701 Results 24 hrs Laboratory Tests Test 04/20/17 17:00 04/21/17 06:51 Lactic Acid Level 1.1 White Blood Count 6.6 Red Blood Count 3.60 L Hemoglobin 10.2 L Hematocrit 33.6 L Mean Corpuscular Volume 93.3 Mean Corpuscular Hemoglobin 28.3 L Mean Corpuscular Hemoglobin Concent 30.4 L Red Cell Distribution Width 17.9 H Platelet Count 205 Mean Platelet Volume 10.2 Neutrophils % 72.4 Lymphocytes % 15.8 Monocytes % 6.4 Eosinophils % 4.5 Basophils % 0.6 Nucleated Red Blood Cells % 0.0 Neutrophils # 4.8 Lymphocytes # 1.0 Monocytes # 0.4 Eosinophils # 0.3 Basophils # 0.0 Nucleated Red Blood Cells # 0.0 Medications Medications Current Medications Pantoprazole (Protonix Iv) 40 mg DAILY@06 IV Last administered on 04/21/17 05: 51; Admin Dose 40 MG; Start 04/15/17 at 06:00 Atorvastatin Calcium (Lipitor) 40 mg QHS GTB Last administered on 04/20/17 21: 43; Admin Dose 40 MG; Start 04/14/17 at 21:00 Bisacodyl (Dulcolax Supp) 10 mg Q2D [place] Last administered on 04/18/17 18:14; Admin Dose 10 MG; Start 04/14/17 at 17:30 Calcium Carbonate (Oyster Shell Calcium) 1.25 gm DAILY GTB Last administered on 04/21/17 09:35; Admin Dose 1.25 GM; Start 04/15/17 at 09:00 Chlorhexidine Gluconate (Peridex) 15 ml Q12 MM Last administered on 04/21/17 09:37; Admin Dose 15 ML; Start 04/14/17 at 21:00 Diltiazem HCl (Cardizem Sr) 60 mg BID PO Last administered on 04/21/17 09:38; Admin Dose 60 MG; Start 04/14/17 at 21:00 Labetalol HCl (Normodyne) 50 mg Q6 GTB Last administered on 04/21/17 12:14; Admin Dose 50 MG; Start 04/14/17 at 19:00 Losartan Potassium (Cozaar) 100 mg DAILY GTB Last administered on 04/21/17 09: 35; Admin Dose 100 MG; Start 04/15/17 at 00:30 Magnesium Hydroxide (Milk Of Mag) 30 ml DAILY GTB Last administered on 09:37; Admin Dose 30 ML; Start 04/15/17 at 09:00 Metoprolol Tartrate (Lopressor) 50 mg BID GTB Last administered on 04/21/17 09 :36; Admin Dose 50 MG; Start 04/14/17 at 21:00 Ondansetron HCl (Zofran Tab) 4 mg Q6H PRN GTB NAUSEA AND/OR VOMITING; Start at 17:30 Sodium Biphosphate/ Sodium Phosphate (Fleet Enema Pediatric) 66.6 ml Q3D PRN [place] CONSTIPATION; Start 04/14/17 at 17:30 Spironolactone (Aldactone) 25 mg BID GTB Last administered on 04/21/17 09:35; Admin Dose 25 MG; Start 04/14/17 at 21:00; Status Future hold Clonidine (Catapres) 0.1 mg Q6H PRN GTB SBP >170 Last administered on 06:16; Admin Dose 0.1 MG; Start 04/15/17 at 19:00 Nitroglycerin (Nitroglycerin 2% Oint) 1 inch Q8 PRN TD SBP >170 Last administered on 04/16/17 09:32; Admin Dose 1 INCH; Start 04/15/17 at 19:00 Hydralazine HCl (Apresoline) 50 mg Q8 PO Last administered on 04/21/17 05:49; Admin Dose 50 MG; Start 04/16/17 at 14:00 Acetaminophen (Tylenol Tab) 650 mg TID PO Last administered on 04/21/17 12:14 ; Admin Dose 650 MG; Start 04/16/17 at 09:00 Furosemide 40 mg 40 mg DAILY IV Last administered on 04/21/17 09:37; Admin Dose 40 MG; Start 04/16/17 at 09:30 Ertapenem/Sodium Chloride (Invanz/NS) 100 ml @ 200 mls/hr Q24H IVPB Last administered on 04/20/17 17:41; Admin Dose 200 MLS/HR; Start 04/16/17 at 16:00 Apixaban 2.5 mg 2.5 mg BID PO Last administered on 04/21/17 09:32; Admin Dose 2.5 MG; Start 04/18/17 at 09:00 Vancomycin HCl/ Sodium Chloride (Vancocin/NS) 150 ml @ 75 mls/hr Q24H IVPB Last administered on 04/21/17 04:57; Admin Dose 75 MLS/HR; Start 04/21/17 at 04 :00 NICOLAS VASQUEZ Apr 21, 2017 13:40
--- NOTE | 2017-04-21 15:35 | CONS ---
Date/Time of Note Date/Time of Note DATE: 04/21/17 TIME: 15:35 Assessment/Plan Assessment/Plan Chief Complaint/Hosp Course No acute changes lying comfortably in bed family at bedside Temperature 98.6 pulse 71 respirations 18 blood pressure 133/65 saturation 99 on FiO2 of 35 WBC 6.6 H&H 10 point and 33.6 platelets 205, no shift BN 20 creatinine 0.71 Microbiology: Blood culture growing coag negative staph species on admission urine culture growing Morganella Klebsiella ESBL E. coli ESBL Antimicrobials: Invanz vancomycin Indwelling's: Tracheostomy PEG Lazar peripheral IV Physical examination: Chronically ill-appearing elderly woman who is in no distress. Head atraumatic, normocephalic, sclera nonicteric. Bugle mucosa dry. Neck is supple, tracheostomy present. Chest rise symmetrical, breath sounds diminished basis. Heart: S1-S2. Abdomen soft, bowel tones present. Extremities without cyanosis Assessment: 1. Coag negative staph bacteremia, likely contaminant 2. Polymicrobial UTI 2. Healthcare associated pneumonia 4. Acute GI bleed/anemia==> EGD + chronic gastritis 5. Hypertension 6. Coronary artery disease history of atrial fibrillation 7. Chronic encephalopathy status post CVA Plan: Remains stable, repeat blood cultures negative, continue antibiotics, vent support per pulmonary Discussed with staff Problems: Consultation Date/Type/Reason Admit Date/Time Apr 14, 2017 at 17:19 Initial Consult Date 04/15/17 Type of Consultation: id Exam/Review of Systems Vital Signs Vitals Vital Signs Date Time Temp Pulse Resp B/P Pulse Ox O2 Delivery O2 Flow Rate FiO2 04/21/17 14:15 73 22 99 35 04/21/17 14:00 98.6 133/65 Mechanical Ventilator Intake and Output 04/20/17 04/20/17 04/21/17 15:00 23:00 07:00 Intake Total 750 ml 720 ml Output Total 900 ml 650 ml Balance -150 ml 70 ml Results Result Diagram: 04/21/17 0651 04/20/17 0701 Results 24 hrs Laboratory Tests Test 04/20/17 17:00 04/21/17 06:51 Lactic Acid Level 1.1 White Blood Count 6.6 Red Blood Count 3.60 L Hemoglobin 10.2 L Hematocrit 33.6 L Mean Corpuscular Volume 93.3 Mean Corpuscular Hemoglobin 28.3 L Mean Corpuscular Hemoglobin Concent 30.4 L Red Cell Distribution Width 17.9 H Platelet Count 205 Mean Platelet Volume 10.2 Neutrophils % 72.4 Lymphocytes % 15.8 Monocytes % 6.4 Eosinophils % 4.5 Basophils % 0.6 Nucleated Red Blood Cells % 0.0 Neutrophils # 4.8 Lymphocytes # 1.0 Monocytes # 0.4 Eosinophils # 0.3 Basophils # 0.0 Nucleated Red Blood Cells # 0.0 Medications Medications Current Medications Pantoprazole (Protonix Iv) 40 mg DAILY@06 IV Last administered on 04/21/17 05: 51; Admin Dose 40 MG; Start 04/15/17 at 06:00 Atorvastatin Calcium (Lipitor) 40 mg QHS GTB Last administered on 04/20/17 21: 43; Admin Dose 40 MG; Start 04/14/17 at 21:00 Bisacodyl (Dulcolax Supp) 10 mg Q2D [place] Last administered on 04/18/17 18:14; Admin Dose 10 MG; Start 04/14/17 at 17:30 Calcium Carbonate (Oyster Shell Calcium) 1.25 gm DAILY GTB Last administered on 04/21/17 09:35; Admin Dose 1.25 GM; Start 04/15/17 at 09:00 Chlorhexidine Gluconate (Peridex) 15 ml Q12 MM Last administered on 04/21/17 09:37; Admin Dose 15 ML; Start 04/14/17 at 21:00 Diltiazem HCl (Cardizem Sr) 60 mg BID PO Last administered on 04/21/17 09:38; Admin Dose 60 MG; Start 04/14/17 at 21:00 Labetalol HCl (Normodyne) 50 mg Q6 GTB Last administered on 04/21/17 12:14; Admin Dose 50 MG; Start 04/14/17 at 19:00 Losartan Potassium (Cozaar) 100 mg DAILY GTB Last administered on 04/21/17 09: 35; Admin Dose 100 MG; Start 04/15/17 at 00:30 Magnesium Hydroxide (Milk Of Mag) 30 ml DAILY GTB Last administered on 09:37; Admin Dose 30 ML; Start 04/15/17 at 09:00 Metoprolol Tartrate (Lopressor) 50 mg BID GTB Last administered on 04/21/17 09 :36; Admin Dose 50 MG; Start 04/14/17 at 21:00 Ondansetron HCl (Zofran Tab) 4 mg Q6H PRN GTB NAUSEA AND/OR VOMITING; Start at 17:30 Sodium Biphosphate/ Sodium Phosphate (Fleet Enema Pediatric) 66.6 ml Q3D PRN [place] CONSTIPATION; Start 04/14/17 at 17:30 Spironolactone (Aldactone) 25 mg BID GTB Last administered on 04/21/17 09:35; Admin Dose 25 MG; Start 04/14/17 at 21:00; Status Future hold Clonidine (Catapres) 0.1 mg Q6H PRN GTB SBP >170 Last administered on 06:16; Admin Dose 0.1 MG; Start 04/15/17 at 19:00 Nitroglycerin (Nitroglycerin 2% Oint) 1 inch Q8 PRN TD SBP >170 Last administered on 04/16/17 09:32; Admin Dose 1 INCH; Start 04/15/17 at 19:00 Hydralazine HCl (Apresoline) 50 mg Q8 PO Last administered on 04/21/17 14:30; Admin Dose 50 MG; Start 04/16/17 at 14:00 Acetaminophen (Tylenol Tab) 650 mg TID PO Last administered on 04/21/17 12:14 ; Admin Dose 650 MG; Start 04/16/17 at 09:00 Furosemide 40 mg 40 mg DAILY IV Last administered on 04/21/17 09:37; Admin Dose 40 MG; Start 04/16/17 at 09:30 Ertapenem/Sodium Chloride (Invanz/NS) 100 ml @ 200 mls/hr Q24H IVPB Last administered on 04/20/17 17:41; Admin Dose 200 MLS/HR; Start 04/16/17 at 16:00 Apixaban 2.5 mg 2.5 mg BID PO Last administered on 04/21/17 09:32; Admin Dose 2.5 MG; Start 04/18/17 at 09:00 Vancomycin HCl/ Sodium Chloride (Vancocin/NS) 150 ml @ 75 mls/hr Q24H IVPB Last administered on 04/21/17 04:57; Admin Dose 75 MLS/HR; Start 04/21/17 at 04 :00 NIKOLAS WATTS NP Apr 21, 2017 15:35
--- NOTE | 2017-04-21 15:47 | PN ---
Date/Time of Note Date/Time of Note DATE: 04/21/17 TIME: 15:45 Assessment/Plan VTE Prophylaxis VTE Prophylaxis Intervention: other Lines/Catheters IV Catheter Type (from Nrs): Saline Lock Urinary Cath still in place: Yes Reason Cath still needed: other (indicate) Assessment/Plan Chief Complaint/Hosp Course 1. Gastrointestinal bleed. stable now. - Follow-up with GI rec. pt is back on eliquis as long as ok with GI. 2. Sepsis secondary to gram-positive bacteremia: -Follow-up with infectious disease regarding abx 3. Afib: ON HR control off of dig now cont betablocker and cardizem. pt is back on eliquis as well. 4. Ventilator dependent respiratory failure. cont resp care. f/u with pulm 5. Dysphagia status post PEG. 6. HTN: cont betablocker, hydralazine caridizem cont aldactone lasix 7. Congestive heart failure/. fluid overload cont ARB cont LASIX 8. 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 Continue to monitor. 9. History of cerebrovascular accident. Continue medical management. Problems: Subjective 24 Hr Interval Summary Free Text/Dictation CARDIOLOGY FOLLOW UP NOTE: d/w staff and rhythm was reviewed. pt remains in Afib. HR has been under good control . pt remains nonverbal on vent s/p trach. OBJECTIVE: General: no acute distress S/P trach on vent HEENT: NC/AT. pupils are equal. round. NECK: s/p trach. . no stridor. CV: irregularly irregular. . systolic murmur; no gallop or rubs. PULM: no wheezing anteriorly. GI: SOFT, NT, ND, no rebound or guarding Extremity: no significant LE edema. no clubbing. neuro: awake and appears alert. Psych: calm and pleasant rectal: deferred Derm: no active bleeding Exam/Review of Systems Vital Signs Vitals Vital Signs Date Time Temp Pulse Resp B/P Pulse Ox O2 Delivery O2 Flow Rate FiO2 04/21/17 14:15 73 22 99 35 04/21/17 14:00 98.6 133/65 Mechanical Ventilator Intake and Output 04/20/17 04/20/17 04/21/17 15:00 23:00 07:00 Intake Total 750 ml 720 ml Output Total 900 ml 650 ml Balance -150 ml 70 ml Results Result Diagram: 04/21/17 0651 04/20/17 0701 Results 24 hrs Laboratory Tests Test 04/20/17 17:00 04/21/17 06:51 Lactic Acid Level 1.1 White Blood Count 6.6 Red Blood Count 3.60 L Hemoglobin 10.2 L Hematocrit 33.6 L Mean Corpuscular Volume 93.3 Mean Corpuscular Hemoglobin 28.3 L Mean Corpuscular Hemoglobin Concent 30.4 L Red Cell Distribution Width 17.9 H Platelet Count 205 Mean Platelet Volume 10.2 Neutrophils % 72.4 Lymphocytes % 15.8 Monocytes % 6.4 Eosinophils % 4.5 Basophils % 0.6 Nucleated Red Blood Cells % 0.0 Neutrophils # 4.8 Lymphocytes # 1.0 Monocytes # 0.4 Eosinophils # 0.3 Basophils # 0.0 Nucleated Red Blood Cells # 0.0 Medications Medications Current Medications Pantoprazole (Protonix Iv) 40 mg DAILY@06 IV Last administered on 04/21/17 05: 51; Admin Dose 40 MG; Start 04/15/17 at 06:00 Atorvastatin Calcium (Lipitor) 40 mg QHS GTB Last administered on 04/20/17 21: 43; Admin Dose 40 MG; Start 04/14/17 at 21:00 Bisacodyl (Dulcolax Supp) 10 mg Q2D [place] Last administered on 04/18/17 18:14; Admin Dose 10 MG; Start 04/14/17 at 17:30 Calcium Carbonate (Oyster Shell Calcium) 1.25 gm DAILY GTB Last administered on 04/21/17 09:35; Admin Dose 1.25 GM; Start 04/15/17 at 09:00 Chlorhexidine Gluconate (Peridex) 15 ml Q12 MM Last administered on 04/21/17 09:37; Admin Dose 15 ML; Start 04/14/17 at 21:00 Diltiazem HCl (Cardizem Sr) 60 mg BID PO Last administered on 04/21/17 09:38; Admin Dose 60 MG; Start 04/14/17 at 21:00 Labetalol HCl (Normodyne) 50 mg Q6 GTB Last administered on 04/21/17 12:14; Admin Dose 50 MG; Start 04/14/17 at 19:00 Losartan Potassium (Cozaar) 100 mg DAILY GTB Last administered on 04/21/17 09: 35; Admin Dose 100 MG; Start 04/15/17 at 00:30 Magnesium Hydroxide (Milk Of Mag) 30 ml DAILY GTB Last administered on 09:37; Admin Dose 30 ML; Start 04/15/17 at 09:00 Metoprolol Tartrate (Lopressor) 50 mg BID GTB Last administered on 04/21/17 09 :36; Admin Dose 50 MG; Start 04/14/17 at 21:00 Ondansetron HCl (Zofran Tab) 4 mg Q6H PRN GTB NAUSEA AND/OR VOMITING; Start at 17:30 Sodium Biphosphate/ Sodium Phosphate (Fleet Enema Pediatric) 66.6 ml Q3D PRN [place] CONSTIPATION; Start 04/14/17 at 17:30 Spironolactone (Aldactone) 25 mg BID GTB Last administered on 04/21/17 09:35; Admin Dose 25 MG; Start 04/14/17 at 21:00; Status Future hold Clonidine (Catapres) 0.1 mg Q6H PRN GTB SBP >170 Last administered on 06:16; Admin Dose 0.1 MG; Start 04/15/17 at 19:00 Nitroglycerin (Nitroglycerin 2% Oint) 1 inch Q8 PRN TD SBP >170 Last administered on 04/16/17 09:32; Admin Dose 1 INCH; Start 04/15/17 at 19:00 Hydralazine HCl (Apresoline) 50 mg Q8 PO Last administered on 04/21/17 14:30; Admin Dose 50 MG; Start 04/16/17 at 14:00 Acetaminophen (Tylenol Tab) 650 mg TID PO Last administered on 04/21/17 12:14 ; Admin Dose 650 MG; Start 04/16/17 at 09:00 Furosemide 40 mg 40 mg DAILY IV Last administered on 04/21/17 09:37; Admin Dose 40 MG; Start 04/16/17 at 09:30 Ertapenem/Sodium Chloride (Invanz/NS) 100 ml @ 200 mls/hr Q24H IVPB Last administered on 04/20/17 17:41; Admin Dose 200 MLS/HR; Start 04/16/17 at 16:00 Apixaban 2.5 mg 2.5 mg BID PO Last administered on 04/21/17 09:32; Admin Dose 2.5 MG; Start 04/18/17 at 09:00 Vancomycin HCl/ Sodium Chloride (Vancocin/NS) 150 ml @ 75 mls/hr Q24H IVPB Last administered on 04/21/17 04:57; Admin Dose 75 MLS/HR; Start 04/21/17 at 04 :00 LETICIA MCWILLIAMS MD Apr 21, 2017 15:47
[2017-04-21] MEDS: ERTAPENEM SODIUM 1 GM in SOD CHLORIDE 0.9% 100 ML IVPB SCH (16:50)
[2017-04-21] MEDS: ATORVASTATIN 40 MG TAB GTB SCH (21:53)
[2017-04-22] VITALS (27 sets, daily range): BP systolic 111–156; BP diastolic 52–76; PULSE 48–79; RESP 12–20
[2017-04-22] MEDS: LABETALOL 100 MG TAB GTB SCH ×4 (01:39→18:00)
[2017-04-22] MEDS: VANCOMYCIN 750 MG in SOD CHLORIDE 0.9% 150 ML IVPB SCH (04:18)
[2017-04-22] MEDS: LEVOTHYROXINE 125 MCG TAB GTB SCH (06:09)
[2017-04-22] MEDS: PANTOPRAZOLE 40 MG INJ IV SCH (06:20)
[2017-04-22 06:59] LABS: BASOPHIL # 0.1 10^3/ul (0.0-0.1); EOSINOPHILS # 0.3 10^3/ul (0.0-0.5); EOSINOPHILS % 4.9 % (0.0-7.0); HEMATOCRIT 32.6 % (37.0-47.0); HEMOGLOBIN 9.9 g/dl (12.0-16.0); MEAN CORPUSCULAR HEMOGLOBIN 28.3 pg (29.0-33.0); MEAN CORPUSCULAR HGB CONC 30.4 g/dl (32.0-37.0); MEAN CORPUSCULAR VOLUME 93.1 fl (82.0-101.0); MEAN PLATELET VOLUME 10.7 fl (7.4-10.4); MONOCYTE # 0.4 10^3/ul (0.3-0.9); MONOCYTES % 6.8 % (0.0-11.0); NEUTROPHIL # 3.4 10^3/ul (1.6-7.5); NEUTROPHILS % 66.9 % (39.0-77.0); PLATELET COUNT 208 10^3/UL (140-415); RED CELL DISTRIBUTION WIDTH 18.2 % (11.5-14.5); WHITE BLOOD COUNT 5.1 10^3/ul (4.8-10.8)
[2017-04-22 07:16] LABS: CALCIUM 8.9 mg/dl (8.4-10.2); CREATININE 0.67 mg/dl (0.44-1.00); POTASSIUM 4.2 mmol/L (3.5-5.1)
[2017-04-22] MEDS: MAGNESIUM HYDROXIDE 30ML CUP GTB SCH (09:00)
[2017-04-22] MEDS: DILTIAZEM (SR) 60 MG CAP PO SCH (09:41)
[2017-04-22] MEDS: CALCIUM CARBONATE 1.25 GM TAB GTB SCH (09:41)
[2017-04-22] MEDS: FUROSEMIDE 40 MG INJ IV SCH (09:41)
[2017-04-22] MEDS: SPIRONOLACTONE 25 MG TAB GTB SCH (09:42)
[2017-04-22] MEDS: ACETAMINOPHEN 325 MG TAB PO SCH ×2 (09:42→13:01)
[2017-04-22] MEDS: LOSARTAN 50 MG TAB GTB SCH (09:42)
[2017-04-22] MEDS: METOPROLOL 50 MG TAB GTB SCH (09:42)
[2017-04-22] MEDS: APIXABAN 5 MG TABLET PO SCH (09:42)
[2017-04-22] MEDS: CHLORHEXIDINE GLUCONATE 15 ML UD CUP MM SCH (09:43)
--- NOTE | 2017-04-22 10:31 | PN ---
Date/Time of Note Date/Time of Note DATE: 04/22/17 TIME: 10:30 Assessment/Plan Lines/Catheters IV [facility]from [facility] Saline Lock Urinary Cath still in place: Yes Assessment/Plan Chief Complaint/Hosp Course 1. Acute lower gastrointestinal bleed. -Resolved Patient status post EGD with no evidence of active bleed. Tolerating Eliquis Monitor H&H levels close -Follow-up with GI 2. Sepsis secondary to gram-positive bacteremia source may be UTI Blood cultures may been a contaminant. Repeat blood cultures negative to date Continue antibiotics -Follow-up with infectious disease 3. Hypertensive urgency, -Resolved -Continue BP meds - CT scan of the brain-negative for any acute 5 4. Ventilator dependent respiratory failure. The patient's vent settings have been reviewed. Place see pulmonary consult for evaluation. We will monitor closely. 5. Dysphagia status post PEG. -Tolerating tube feeding Monitor 6. Atrial fibrillation. The patient's rate is currently controlled. Continue metoprolol, diltiazem, and digoxin. Resume anticoagulation, monitor H&H Discussed with cardiology 7. Congestive heart failure. The patient is currently decompensated. Chest x- ray shows pulmonary congestion. Continue diuretics Follow-up with cardiology 8. 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 Continue to monitor. 9. History of cerebrovascular accident. Continue medical management. 10. Hypernatremia Resolved 11. Hypothyroidism. Continue Synthroid. 12. Gastrointestinal and deep venous thrombosis prophylaxis. Continue proton pump inhibitor and sequential leg squeezers. 15. Anemia secondary to gastrointestinal bleed as stated above. We will monitor hemoglobin and hematocrit levels 16. History of arthritis We will place the patient on routine Tylenol Elevated troponin likely non-STEMI type II We will follow-up with cardiology continue medical management Problems: Subjective 24 Hr Interval Summary Free Text/Dictation Patient seen and examined No evidence of GI bleed Awaiting possible transfer to [place] Exam/Review of Systems Vital Signs Vitals Vital Signs Date Time Temp Pulse Resp B/P Pulse Ox O2 Delivery O2 Flow Rate FiO2 04/22/17 09:05 67 17 98 35 04/22/17 08:00 98.4 120/69 04/22/17 06:15 Mechanical Ventilator Intake and Output 04/21/17 04/21/17 04/22/17 15:00 23:00 07:00 Intake Total 850 ml 900 ml Output Total 700 ml 550 ml Balance 150 ml 350 ml Exam EENT: Head is normocephalic. NECK: Supple. HEART: Regular rate LUNGS: Show diminished breath sounds at base. ABDOMEN: Soft, nontender to palpation without rebound or guarding. EXTREMITIES: Negative for clubbing, cyanosis. DERMATOLOGIC: No rashes. MUSCULOSKELETAL: No joint effusions, NEUROLOGIC: No change in exam. Results Result Diagram: 04/22/17 0612 04/22/17 0612 Results 24 hrs Laboratory Tests Test 04/21/17 17:17 04/22/17 06:12 Lactic Acid Level 1.0 White Blood Count 5.1 # Red Blood Count 3.50 L Hemoglobin 9.9 L Hematocrit 32.6 L Mean Corpuscular Volume 93.1 Mean Corpuscular Hemoglobin 28.3 L Mean Corpuscular Hemoglobin Concent 30.4 L Red Cell Distribution Width 18.2 H Platelet Count 208 Mean Platelet Volume 10.7 H Neutrophils % 66.9 Lymphocytes % 20.0 Monocytes % 6.8 Eosinophils % 4.9 Basophils % 1.0 Nucleated Red Blood Cells % 0.0 Neutrophils # 3.4 Lymphocytes # 1.0 Monocytes # 0.4 Eosinophils # 0.3 Basophils # 0.1 Nucleated Red Blood Cells # 0.0 Sodium Level 143 Potassium Level 4.2 Chloride Level 101 Carbon Dioxide Level 31 Anion Gap 15 Blood Urea Nitrogen 21 H Creatinine 0.67 Glucose Level 120 Calcium Level 8.9 Phosphorus Level 3.0 Magnesium Level 2.0 Medications Medications Current Medications Pantoprazole (Protonix Iv) 40 mg DAILY@06 IV Last administered on 04/22/17 06: 20; Admin Dose 40 MG; Start 04/15/17 at 06:00 Atorvastatin Calcium (Lipitor) 40 mg QHS GTB Last administered on 04/21/17 21: 53; Admin Dose 40 MG; Start 04/14/17 at 21:00 Bisacodyl (Dulcolax Supp) 10 mg Q2D [place] Last administered on 04/18/17 18:14; Admin Dose 10 MG; Start 04/14/17 at 17:30 Calcium Carbonate (Oyster Shell Calcium) 1.25 gm DAILY GTB Last administered on 04/22/17 09:41; Admin Dose 1.25 GM; Start 04/15/17 at 09:00 Chlorhexidine Gluconate (Peridex) 15 ml Q12 MM Last administered on 04/22/17 09:43; Admin Dose 15 ML; Start 04/14/17 at 21:00 Diltiazem HCl (Cardizem Sr) 60 mg BID PO Last administered on 04/22/17 09:41; Admin Dose 60 MG; Start 04/14/17 at 21:00 Labetalol HCl (Normodyne) 50 mg Q6 GTB Last administered on 04/22/17 06:20; Admin Dose 50 MG; Start 04/14/17 at 19:00 Losartan Potassium (Cozaar) 100 mg DAILY GTB Last administered on 04/22/17 09: 42; Admin Dose 100 MG; Start 04/15/17 at 00:30 Magnesium Hydroxide (Milk Of Mag) 30 ml DAILY GTB Last administered on 09:37; Admin Dose 30 ML; Start 04/15/17 at 09:00 Metoprolol Tartrate (Lopressor) 50 mg BID GTB Last administered on 04/22/17 09 :42; Admin Dose 50 MG; Start 04/14/17 at 21:00 Ondansetron HCl (Zofran Tab) 4 mg Q6H PRN GTB NAUSEA AND/OR VOMITING; Start at 17:30 Sodium Biphosphate/ Sodium Phosphate (Fleet Enema Pediatric) 66.6 ml Q3D PRN [place] CONSTIPATION; Start 04/14/17 at 17:30 Spironolactone (Aldactone) 25 mg BID GTB Last administered on 04/22/17 09:42; Admin Dose 25 MG; Start 04/14/17 at 21:00; Status Future hold Clonidine (Catapres) 0.1 mg Q6H PRN GTB SBP >170 Last administered on 06:16; Admin Dose 0.1 MG; Start 04/15/17 at 19:00 Nitroglycerin (Nitroglycerin 2% Oint) 1 inch Q8 PRN TD SBP >170 Last administered on 04/16/17 09:32; Admin Dose 1 INCH; Start 04/15/17 at 19:00 Hydralazine HCl (Apresoline) 50 mg Q8 PO Last administered on 04/22/17 06:19; Admin Dose 50 MG; Start 04/16/17 at 14:00 Acetaminophen (Tylenol Tab) 650 mg TID PO Last administered on 04/22/17 09:42 ; Admin Dose 650 MG; Start 04/16/17 at 09:00 Furosemide 40 mg 40 mg DAILY IV Last administered on 04/22/17 09:41; Admin Dose 40 MG; Start 04/16/17 at 09:30 Ertapenem/Sodium Chloride (Invanz/NS) 100 ml @ 200 mls/hr Q24H IVPB Last administered on 04/21/17 16:50; Admin Dose 200 MLS/HR; Start 04/16/17 at 16:00 Apixaban 2.5 mg 2.5 mg BID PO Last administered on 04/22/17 09:42; Admin Dose 2.5 MG; Start 04/18/17 at 09:00 Vancomycin HCl/ Sodium Chloride (Vancocin/NS) 150 ml @ 75 mls/hr Q24H IVPB Last administered on 04/22/17 04:18; Admin Dose 75 MLS/HR; Start 04/21/17 at 04 :00 NIRMALA TAVAREZ DO Apr 22, 2017 10:31
--- NOTE | 2017-04-22 13:51 | CONS ---
Date/Time of Note Date/Time of Note DATE: 04/22/17 TIME: 13:50 Assessment/Plan Assessment/Plan Chief Complaint/Hosp Course No acute changes, patient is lying comfortably in bed Temperature 98.6 pulse 60 respirations 19 blood pressure 121/70 saturation 98 on vent WBC 5.1 platelets 208 no shift BN 21 creatinine 0.67 Microbiology: Blood culture on admission grew coag negative staph species, urine culture growing Morganella Klebsiella ESBL E. coli ESBL Antimicrobials: Invanz vancomycin day #7 Indwelling's: Tracheostomy PEG Lazar peripheral IV Physical examination: Chronically ill-appearing elderly woman who is in no distress. Head atraumatic, normocephalic, sclera nonicteric. Bugle mucosa dry. Neck is supple, tracheostomy present. Chest rise symmetrical, breath sounds diminished basis. Heart: S1-S2. Abdomen soft, bowel tones present. Extremities without cyanosis Assessment: 1. Coag negative staph bacteremia, likely contaminant 2. Polymicrobial UTI 2. Healthcare associated pneumonia 4. Acute GI bleed/anemia==> EGD + chronic gastritis 5. Hypertension 6. Coronary artery disease history of atrial fibrillation 7. Chronic encephalopathy status post CVA Plan: Remains stable, repeat blood cultures negative, continue antibiotics for 5 -7 more days, vent support per pulmonary Discussed with staff Problems: Consultation Date/Type/Reason Admit Date/Time Apr 14, 2017 at 17:19 Initial Consult Date 04/15/17 Type of Consultation: id Exam/Review of Systems Vital Signs Vitals Vital Signs Date Time Temp Pulse Resp B/P Pulse Ox O2 Delivery O2 Flow Rate FiO2 04/22/17 13:33 79 04/22/17 12:08 98.6 19 121/70 98 04/22/17 11:05 35 04/22/17 06:15 Mechanical Ventilator Intake and Output 04/21/17 04/21/17 04/22/17 15:00 23:00 07:00 Intake Total 850 ml 900 ml Output Total 700 ml 550 ml Balance 150 ml 350 ml Results Result Diagram: 04/22/17 0612 04/22/17 0612 Results 24 hrs Laboratory Tests Test 04/21/17 17:17 04/22/17 06:12 Lactic Acid Level 1.0 White Blood Count 5.1 # Red Blood Count 3.50 L Hemoglobin 9.9 L Hematocrit 32.6 L Mean Corpuscular Volume 93.1 Mean Corpuscular Hemoglobin 28.3 L Mean Corpuscular Hemoglobin Concent 30.4 L Red Cell Distribution Width 18.2 H Platelet Count 208 Mean Platelet Volume 10.7 H Neutrophils % 66.9 Lymphocytes % 20.0 Monocytes % 6.8 Eosinophils % 4.9 Basophils % 1.0 Nucleated Red Blood Cells % 0.0 Neutrophils # 3.4 Lymphocytes # 1.0 Monocytes # 0.4 Eosinophils # 0.3 Basophils # 0.1 Nucleated Red Blood Cells # 0.0 Sodium Level 143 Potassium Level 4.2 Chloride Level 101 Carbon Dioxide Level 31 Anion Gap 15 Blood Urea Nitrogen 21 H Creatinine 0.67 Glucose Level 120 Calcium Level 8.9 Phosphorus Level 3.0 Magnesium Level 2.0 Medications Medications Current Medications Pantoprazole (Protonix Iv) 40 mg DAILY@06 IV Last administered on 04/22/17 06: 20; Admin Dose 40 MG; Start 04/15/17 at 06:00 Atorvastatin Calcium (Lipitor) 40 mg QHS GTB Last administered on 04/21/17 21: 53; Admin Dose 40 MG; Start 04/14/17 at 21:00 Bisacodyl (Dulcolax Supp) 10 mg Q2D [place] Last administered on 04/18/17 18:14; Admin Dose 10 MG; Start 04/14/17 at 17:30 Calcium Carbonate (Oyster Shell Calcium) 1.25 gm DAILY GTB Last administered on 04/22/17 09:41; Admin Dose 1.25 GM; Start 04/15/17 at 09:00 Chlorhexidine Gluconate (Peridex) 15 ml Q12 MM Last administered on 04/22/17 09:43; Admin Dose 15 ML; Start 04/14/17 at 21:00 Diltiazem HCl (Cardizem Sr) 60 mg BID PO Last administered on 04/22/17 09:41; Admin Dose 60 MG; Start 04/14/17 at 21:00 Labetalol HCl (Normodyne) 50 mg Q6 GTB Last administered on 04/22/17 13:01; Admin Dose 50 MG; Start 04/14/17 at 19:00 Losartan Potassium (Cozaar) 100 mg DAILY GTB Last administered on 04/22/17 09: 42; Admin Dose 100 MG; Start 04/15/17 at 00:30 Magnesium Hydroxide (Milk Of Mag) 30 ml DAILY GTB Last administered on 09:37; Admin Dose 30 ML; Start 04/15/17 at 09:00 Metoprolol Tartrate (Lopressor) 50 mg BID GTB Last administered on 04/22/17 09 :42; Admin Dose 50 MG; Start 04/14/17 at 21:00 Ondansetron HCl (Zofran Tab) 4 mg Q6H PRN GTB NAUSEA AND/OR VOMITING; Start at 17:30 Sodium Biphosphate/ Sodium Phosphate (Fleet Enema Pediatric) 66.6 ml Q3D PRN [place] CONSTIPATION; Start 04/14/17 at 17:30 Spironolactone (Aldactone) 25 mg BID GTB Last administered on 04/22/17 09:42; Admin Dose 25 MG; Start 04/14/17 at 21:00; Status Future hold Clonidine (Catapres) 0.1 mg Q6H PRN GTB SBP >170 Last administered on 06:16; Admin Dose 0.1 MG; Start 04/15/17 at 19:00 Nitroglycerin (Nitroglycerin 2% Oint) 1 inch Q8 PRN TD SBP >170 Last administered on 04/16/17 09:32; Admin Dose 1 INCH; Start 04/15/17 at 19:00 Hydralazine HCl (Apresoline) 50 mg Q8 PO Last administered on 04/22/17 06:19; Admin Dose 50 MG; Start 04/16/17 at 14:00 Acetaminophen (Tylenol Tab) 650 mg TID PO Last administered on 04/22/17 13:01 ; Admin Dose 650 MG; Start 04/16/17 at 09:00 Furosemide 40 mg 40 mg DAILY IV Last administered on 04/22/17 09:41; Admin Dose 40 MG; Start 04/16/17 at 09:30 Ertapenem/Sodium Chloride (Invanz/NS) 100 ml @ 200 mls/hr Q24H IVPB Last administered on 04/21/17 16:50; Admin Dose 200 MLS/HR; Start 04/16/17 at 16:00 Apixaban 2.5 mg 2.5 mg BID PO Last administered on 04/22/17 09:42; Admin Dose 2.5 MG; Start 04/18/17 at 09:00 Vancomycin HCl/ Sodium Chloride (Vancocin/NS) 150 ml @ 75 mls/hr Q24H IVPB Last administered on 04/22/17t 04:18; Admin Dose 75 MLS/HR; Start 04/21/17 at 04 :00 NIKOLAS WATTS NP Apr 22, 2017 13:51
--- NOTE | 2017-04-22 16:00 | CONS ---
Date/Time of Note Date/Time of Note DATE: 04/22/17 TIME: 15:59 Consult Date/Type/Reason Admit Date/Time Apr 14, 2017 at 17:19 Initial Consult Date 04/15/17 Type of Consultation: Pulmonary Objective Vital Signs Date Time Temp Pulse Resp B/P Pulse Ox O2 Delivery O2 Flow Rate FiO2 04/22/17 13:33 79 04/22/17 12:08 98.6 19 121/70 98 04/22/17 11:05 35 04/22/17 06:15 Mechanical Ventilator Intake and Output 04/21/17 04/21/17 04/22/17 15:00 23:00 07:00 Intake Total 850 ml 900 ml Output Total 700 ml 550 ml Balance 150 ml 350 ml Results/Medications Result Diagram: 04/22/1712 04/22/1712 Results 24 hrs Laboratory Tests Test 04/21/17 17:17 04/22/17 06:12 Lactic Acid Level 1.0 White Blood Count 5.1 # Red Blood Count 3.50 L Hemoglobin 9.9 L Hematocrit 32.6 L Mean Corpuscular Volume 93.1 Mean Corpuscular Hemoglobin 28.3 L Mean Corpuscular Hemoglobin Concent 30.4 L Red Cell Distribution Width 18.2 H Platelet Count 208 Mean Platelet Volume 10.7 H Neutrophils % 66.9 Lymphocytes % 20.0 Monocytes % 6.8 Eosinophils % 4.9 Basophils % 1.0 Nucleated Red Blood Cells % 0.0 Neutrophils # 3.4 Lymphocytes # 1.0 Monocytes # 0.4 Eosinophils # 0.3 Basophils # 0.1 Nucleated Red Blood Cells # 0.0 Sodium Level 143 Potassium Level 4.2 Chloride Level 101 Carbon Dioxide Level 31 Anion Gap 15 Blood Urea Nitrogen 21 H Creatinine 0.67 Glucose Level 120 Calcium Level 8.9 Phosphorus Level 3.0 Magnesium Level 2.0 Medications Current Medications Pantoprazole (Protonix Iv) 40 mg DAILY@06 IV Last administered on 04/22/17 06: 20; Admin Dose 40 MG; Start 04/15/17 at 06:00 Atorvastatin Calcium (Lipitor) 40 mg QHS GTB Last administered on 04/21/17 21: 53; Admin Dose 40 MG; Start 04/14/17 at 21:00 Bisacodyl (Dulcolax Supp) 10 mg Q2D [place] Last administered on 04/18/17 18:14; Admin Dose 10 MG; Start 04/14/17 at 17:30 Calcium Carbonate (Oyster Shell Calcium) 1.25 gm DAILY GTB Last administered on 04/22/17 09:41; Admin Dose 1.25 GM; Start 04/15/17 at 09:00 Chlorhexidine Gluconate (Peridex) 15 ml Q12 MM Last administered on 04/22/17 09:43; Admin Dose 15 ML; Start 04/14/17 at 21:00 Diltiazem HCl (Cardizem Sr) 60 mg BID PO Last administered on 04/22/17 09:41; Admin Dose 60 MG; Start 04/14/17 at 21:00 Labetalol HCl (Normodyne) 50 mg Q6 GTB Last administered on 04/22/17 13:01; Admin Dose 50 MG; Start 04/14/17 at 19:00 Losartan Potassium (Cozaar) 100 mg DAILY GTB Last administered on 04/22/17 09: 42; Admin Dose 100 MG; Start 04/15/17 at 00:30 Magnesium Hydroxide (Milk Of Mag) 30 ml DAILY GTB Last administered on 09:37; Admin Dose 30 ML; Start 04/15/17 at 09:00 Metoprolol Tartrate (Lopressor) 50 mg BID GTB Last administered on 04/22/17 09 :42; Admin Dose 50 MG; Start 04/14/17 at 21:00 Ondansetron HCl (Zofran Tab) 4 mg Q6H PRN GTB NAUSEA AND/OR VOMITING; Start at 17:30 Sodium Biphosphate/ Sodium Phosphate (Fleet Enema Pediatric) 66.6 ml Q3D PRN [place] CONSTIPATION; Start 04/14/17 at 17:30 Spironolactone (Aldactone) 25 mg BID GTB Last administered on 04/22/17 09:42; Admin Dose 25 MG; Start 04/14/17 at 21:00; Status Future hold Clonidine (Catapres) 0.1 mg Q6H PRN GTB SBP >170 Last administered on 06:16; Admin Dose 0.1 MG; Start 04/15/17 at 19:00 Nitroglycerin (Nitroglycerin 2% Oint) 1 inch Q8 PRN TD SBP >170 Last administered on 04/16/17 09:32; Admin Dose 1 INCH; Start 04/15/17 at 19:00 Hydralazine HCl (Apresoline) 50 mg Q8 PO Last administered on 04/22/17 06:19; Admin Dose 50 MG; Start 04/16/17 at 14:00 Acetaminophen (Tylenol Tab) 650 mg TID PO Last administered on 04/22/17 13:01 ; Admin Dose 650 MG; Start 04/16/17 at 09:00 Furosemide 40 mg 40 mg DAILY IV Last administered on 04/22/17 09:41; Admin Dose 40 MG; Start 04/16/17 at 09:30 Ertapenem/Sodium Chloride (Invanz/NS) 100 ml @ 200 mls/hr Q24H IVPB Last administered on 04/21/17 16:50; Admin Dose 200 MLS/HR; Start 04/16/17 at 16:00 Apixaban 2.5 mg 2.5 mg BID PO Last administered on 04/22/17 09:42; Admin Dose 2.5 MG; Start 04/18/17 at 09:00 Vancomycin HCl/ Sodium Chloride (Vancocin/NS) 150 ml @ 75 mls/hr Q24H IVPB Last administered on 04/22/17 04:18; Admin Dose 75 MLS/HR; Start 04/21/17 at 04 :00 Assessment/Plan Chief Complaint/Hosp Course Patient appears comfortable this morning. Vital signs remained stable no fever PHYSICAL EXAMINATION GENERAL: Elderly gentleman, intubated on mechanical ventilation, opens eyes and appears somewhat agitated.. VITAL SIGNS: see below. HEENT: Pupils equal, round, and reactive to light. Tracheostomy site clean and intact. CARDIAC: S1, S2, 1/6 systolic ejection murmur CHEST: Diminished air entry bilaterally. ABDOMEN: Mildly distended. Bowel sounds present no guarding or rebound EXTREMITIES: No cyanosis, clubbing edema +1 NEUROLOGIC: Generalized weakness Labs white count 5.1 Hemoglobin 9.3 platelets of 208, BUN 21 creatinine 0.67 Initial urine cultures are demonstrated E. coli ESBL, Klebsiella pneumonia ESBL and Morganella species. Assessment 1. Recent urinary tract infection 2. chronic respiratory failure, ventilator dependent 3. Encephalopathy Plan 1. Continue antibiotics per ID 2. Continue mechanical ventilation 3. Discharge planning okay from pulmonary standpoint Problems: MELBA SEVERINO MD, [facility] Apr 22, 2017 16:00
--- NOTE | 2017-04-22 16:11 | PN ---
Date/Time of Note Date/Time of Note DATE: 04/22/17 TIME: 16:10 Assessment/Plan VTE Prophylaxis VTE Prophylaxis Intervention: other Lines/Catheters IV Catheter Type (from Nrs): Peripheral IV Urinary Cath still in place: Yes Reason Cath still needed: other (indicate) Assessment/Plan Chief Complaint/Hosp Course 1. Gastrointestinal bleed. stable now. - Follow-up with GI rec. pt is back on eliquis as long as ok with GI. 2. Sepsis secondary to gram-positive bacteremia: -Follow-up with infectious disease regarding abx 3. Afib: ON HR control off of dig now cont betablocker and cardizem. pt is back on eliquis as well. 4. Ventilator dependent respiratory failure. cont resp care. f/u with pulm 5. Dysphagia status post PEG. 6. HTN: cont betablocker, hydralazine caridizem cont aldactone lasix 7. Congestive heart failure/. fluid overload cont ARB cont LASIX 8. 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 Continue to monitor. 9. History of cerebrovascular accident. Continue medical management. Problems: Subjective 24 Hr Interval Summary Free Text/Dictation CARDIOLOGY FOLLOW UP NOTE: d/w staff and rhythm was reviewed. pt remains in Afib. HR has been under good control . pt remains nonverbal on vent s/p trach. no reports of chest pain or pressure. OBJECTIVE: General: no acute distress S/P trach on vent HEENT: NC/AT. pupils are equal. round. NECK: s/p trach. . no stridor. CV: irregularly irregular. . systolic murmur; no gallop or rubs. PULM: no wheezing anteriorly. GI: SOFT, NT, ND, no rebound or guarding Extremity: no significant LE edema. no clubbing. neuro: awake and appears alert. Psych: calm and pleasant rectal: deferred Derm: no active bleeding Exam/Review of Systems Vital Signs Vitals Vital Signs Date Time Temp Pulse Resp B/P Pulse Ox O2 Delivery O2 Flow Rate FiO2 04/22/17 13:40 53 18 97 35 04/22/17 12:08 98.6 121/70 04/22/17 06:15 Mechanical Ventilator Intake and Output 04/21/17 04/21/17 04/22/17 14:59 22:59 06:59 Intake Total 850 ml 900 ml Output Total 700 ml 550 ml Balance 150 ml 350 ml Results Result Diagram: 04/22/17 0612 04/22/17 0612 Results 24 hrs Laboratory Tests Test 04/21/17 17:17 04/22/17 06:12 Lactic Acid Level 1.0 White Blood Count 5.1 # Red Blood Count 3.50 L Hemoglobin 9.9 L Hematocrit 32.6 L Mean Corpuscular Volume 93.1 Mean Corpuscular Hemoglobin 28.3 L Mean Corpuscular Hemoglobin Concent 30.4 L Red Cell Distribution Width 18.2 H Platelet Count 208 Mean Platelet Volume 10.7 H Neutrophils % 66.9 Lymphocytes % 20.0 Monocytes % 6.8 Eosinophils % 4.9 Basophils % 1.0 Nucleated Red Blood Cells % 0.0 Neutrophils # 3.4 Lymphocytes # 1.0 Monocytes # 0.4 Eosinophils # 0.3 Basophils # 0.1 Nucleated Red Blood Cells # 0.0 Sodium Level 143 Potassium Level 4.2 Chloride Level 101 Carbon Dioxide Level 31 Anion Gap 15 Blood Urea Nitrogen 21 H Creatinine 0.67 Glucose Level 120 Calcium Level 8.9 Phosphorus Level 3.0 Magnesium Level 2.0 Medications Medications Current Medications Pantoprazole (Protonix Iv) 40 mg DAILY@06 IV Last administered on 04/22/17 06: 20; Admin Dose 40 MG; Start 04/15/17 at 06:00 Atorvastatin Calcium (Lipitor) 40 mg QHS GTB Last administered on 04/21/17 21: 53; Admin Dose 40 MG; Start 04/14/17 at 21:00 Bisacodyl (Dulcolax Supp) 10 mg Q2D [place] Last administered on 04/18/17 18:14; Admin Dose 10 MG; Start 04/14/17 at 17:30 Calcium Carbonate (Oyster Shell Calcium) 1.25 gm DAILY GTB Last administered on 04/22/17 09:41; Admin Dose 1.25 GM; Start 04/15/17 at 09:00 Chlorhexidine Gluconate (Peridex) 15 ml Q12 MM Last administered on 04/22/17 09:43; Admin Dose 15 ML; Start 04/14/17 at 21:00 Diltiazem HCl (Cardizem Sr) 60 mg BID PO Last administered on 04/22/17 09:41; Admin Dose 60 MG; Start 04/14/17 at 21:00 Labetalol HCl (Normodyne) 50 mg Q6 GTB Last administered on 04/22/17 13:01; Admin Dose 50 MG; Start 04/14/17 at 19:00 Losartan Potassium (Cozaar) 100 mg DAILY GTB Last administered on 04/22/17 09: 42; Admin Dose 100 MG; Start 04/15/17 at 00:30 Magnesium Hydroxide (Milk Of Mag) 30 ml DAILY GTB Last administered on 09:37; Admin Dose 30 ML; Start 04/15/17 at 09:00 Metoprolol Tartrate (Lopressor) 50 mg BID GTB Last administered on 04/22/17 09 :42; Admin Dose 50 MG; Start 04/14/17 at 21:00 Ondansetron HCl (Zofran Tab) 4 mg Q6H PRN GTB NAUSEA AND/OR VOMITING; Start at 17:30 Sodium Biphosphate/ Sodium Phosphate (Fleet Enema Pediatric) 66.6 ml Q3D PRN [place] CONSTIPATION; Start 04/14/17 at 17:30 Spironolactone (Aldactone) 25 mg BID GTB Last administered on 04/22/17 09:42; Admin Dose 25 MG; Start 04/14/17 at 21:00; Status Future hold Clonidine (Catapres) 0.1 mg Q6H PRN GTB SBP >170 Last administered on 06:16; Admin Dose 0.1 MG; Start 04/15/17 at 19:00 Nitroglycerin (Nitroglycerin 2% Oint) 1 inch Q8 PRN TD SBP >170 Last administered on 04/16/17 09:32; Admin Dose 1 INCH; Start 04/15/17 at 19:00 Hydralazine HCl (Apresoline) 50 mg Q8 PO Last administered on 04/22/17 06:19; Admin Dose 50 MG; Start 04/16/17 at 14:00 Acetaminophen (Tylenol Tab) 650 mg TID PO Last administered on 04/22/17 13:01 ; Admin Dose 650 MG; Start 04/16/17 at 09:00 Furosemide 40 mg 40 mg DAILY IV Last administered on 04/22/17 09:41; Admin Dose 40 MG; Start 04/16/17 at 09:30 Ertapenem/Sodium Chloride (Invanz/NS) 100 ml @ 200 mls/hr Q24H IVPB Last administered on 04/21/17 16:50; Admin Dose 200 MLS/HR; Start 04/16/17 at 16:00 Apixaban 2.5 mg 2.5 mg BID PO Last administered on 04/22/17 09:42; Admin Dose 2.5 MG; Start 04/18/17 at 09:00 Vancomycin HCl/ Sodium Chloride (Vancocin/NS) 150 ml @ 75 mls/hr Q24H IVPB Last administered on 04/22/17 04:18; Admin Dose 75 MLS/HR; Start 04/21/17 at 04 :00 LETICIA MCWILLIAMS MD Apr 22, 2017 16:11
[2017-04-22] MEDS: ERTAPENEM SODIUM 1 GM in SOD CHLORIDE 0.9% 100 ML IVPB SCH (16:21)
[2017-04-22] MEDS: BISACODYL 10 MG SUPP PR SCH (16:28)
[2017-04-23 00:04] VITALS: PULSE 60
[2017-04-23 00:45] VITALS: RESP 17
--- NOTE | 2017-04-24 19:51 | CONS ---
DATE OF ADMISSION: 04/14/2017 DATE OF CONSULTATION: 04/15/2017 REFERRING PHYSICIAN: Dr. Maravilla. REASON FOR CONSULT: Atrial fibrillation. CHIEF COMPLAINT: Gastrointestinal bleeding. HISTORY OF PRESENT ILLNESS: Thank you for this referral. History was obtained along with review of the old chart and discussion with the patient and staff. The patient . This unfortunate 87-year-old female with a complicated medical history including atrial fibrillation, severe respiratory failure with tracheostomy, who was brought in because of rectal bleeding. The patient reportedly had a brother with problems with the rectum. She has had anticoagulation, which had to be stopped since she has been here. The patient has chronic atrial fibrillation, also has severe CVA, also history of fluid overload and diastolic dysfunction with congestive heart failure, which . Currently has remained in atrial fibrillation, heart has remained stable with no long pauses. She remains on the vent. PAST MEDICAL HISTORY: As above mentioned, history of respiratory failure with tracheostomy, vent dependent, history of dysphagia, had PEG placement, history of encephalopathy, history of CVA, atrial fibrillation chronic, dyslipidemia, hypertension, history of mild cardiomyopathy, ejection fraction previously has been about 50 percent, also with moderate aortic insufficiency as noted. PAST SURGICAL HISTORY: PEG and tracheostomy. MEDICATIONS: As per medical reconciliation, which I personally reviewed. FAMILY HISTORY: Noteworthy for coronary artery disease. SOCIAL HISTORY: The patient lives in a subacute. ALLERGIES: ALLERGY TO LOVASTATIN, METAXALONE, AND ZOLPIDEM PER CHART. REVIEW OF SYSTEMS: No acute oliguria. All negative except for above mentioned and best I could obtain. PHYSICAL EXAMINATION: VITAL SIGNS: Temperature 98.5, heart rate 77, blood pressure 160/80, respiratory rate 22, sating 96 percent. HEENT: Pupils equal and round. NECK: Status post tracheostomy, no acute distress. CARDIOVASCULAR: Irregular rhythm. Systolic murmur and diastolic murmur. PULMONARY: Anteriorly with no wheezes. GASTROINTESTINAL: Soft, PEG placement. EXTREMITIES: Pedal edema with no tenderness. NEUROLOGIC: Eyes are open, awake, does not answer my questions. Right sided weakness. PSYCHIATRIC: Appeared to be calm. LABORATORY DATA: Head CT shows atrophy, ischemic changes. Large old infarct in the left middle cerebral artery. Chest x-ray done yesterday shows vascular congestion, patient's edema slightly improved. Sodium 145, potassium 3.9, BUN 17, creatinine 0.5, 117. WBC 5.6, hemoglobin 9.9, platelets 159. ASSESSMENT AND PLAN: 1. Hypoxemia with respiratory failure. 2. History of atrial fibrillation, chronic, and heart rate controlled. Previously on Eliquis, patient is on hold for concern about a bleed. 3. Possible gastrointestinal bleed. 4. Hypertension. 5. Aortic valve disorder. 6. Aortic insufficiency. 7. Congestive heart failure on secondary to above. 8. Dyslipidemia. 9. Cerebrovascular accident. RECOMMENDATIONS: The patient's heart rate is currently out of control with a combination of metoprolol, Cardizem, and digoxin. Will continue to monitor telemetry. I will continue with Losartan and will discontinue the lisinopril since she is already on Losartan. Anticoagulation is on hold until more information is available. Always still previously has been positive, but no overt bleeding noted now. Blood pressure still not optimized, but appears to be improved though. Consultation with gastrointestinal has been obtained as well. will be continued. Will continue to follow along with you. Dictated By: Cuco Moya MD /[email or web address]/bola /Document#: [id number] CC: Saad Maravilla DO;*End*
== END 2017-04-23 02:28 | disposition short-term general hospital (02) | DRG 870 ==
LOC: E/R 22:13 → TEL 04-14 17:19
PROVIDERS: ADMIT Internal Medicine Nephrology; ATTEND Internal Medicine Nephrology
PROC: 5A1955Z Respiratory Ventilation, Greater than 96 Consecutive Hours (ICD-10-PCS; principal; 2017-04-14)
PROC: 0DB68ZX Excision of Stomach, Via Natural or Artificial Opening Endoscopic, Diagnostic (ICD-10-PCS; 2017-04-14)
PROC: 4A033R1 Measurement of Arterial Saturation, Peripheral, Percutaneous Approach (ICD-10-PCS; 2017-04-14)
DX: A41.89 Other specified sepsis (principal); J96.21 Acute and chronic respiratory failure with hypoxia; J18.9 Pneumonia, unspecified organism; G93.49 Other encephalopathy; I50.33 Acute on chronic diastolic (congestive) heart failure; Z93.0 Tracheostomy status; E87.0 Hyperosmolality and hypernatremia; I11.0 Hypertensive heart disease with heart failure; F03.90 Unspecified dementia, unspecified severity, without behavioral disturbance, psychotic disturbance, mood disturbance, and anxiety; I42.9 Cardiomyopathy, unspecified; J96.22 Acute and chronic respiratory failure with hypercapnia; N39.0 Urinary tract infection, site not specified; D62 Acute posthemorrhagic anemia; K92.1 Melena; R13.10 Dysphagia, unspecified; E03.9 Hypothyroidism, unspecified; Z93.1 Gastrostomy status; K29.00 Acute gastritis without bleeding; K29.50 Unspecified chronic gastritis without bleeding; I16.0 Hypertensive urgency; E87.5 Hyperkalemia; I69.398 Other sequelae of cerebral infarction; I25.10 Atherosclerotic heart disease of native coronary artery without angina pectoris; I48.2 Chronic atrial fibrillation; I35.1 Nonrheumatic aortic (valve) insufficiency; Z79.01 Long term (current) use of anticoagulants
CPT/HCPCS: 36415; 36600; 70450; 71010; 80048; 80053; 80162; 80202; 81001; 82803; 82962; 83605; 83690; 83735; 84100; 84484; 85014; 85018; 85025; 85610; 85730; 86850; 86900; 86901; 87040; 87081; 87086; 88305; 88312; 93005; 94002; 94003; 96374; 96375; C9113; J0692; J1335; J1940; J2370; J3010; J3370; J7030; J7042; J7070

== ENCOUNTER → 2017-05-14 | Day surgery (SDC) | payer OTHER ==
[2017-05-14] VITALS (10 sets, daily range): BP systolic 141–170; BP diastolic 50–81; PULSE 78–96; RESP 16–22; Ht 152.4 cm; Wt 77.1 kg
[~2017-05-14] VITALS: Ht 152.4 cm; Wt 77.1 kg
--- NOTE | 2017-05-14 13:31 | OPPN ---
Date/Time of Note Date/Time of Note DATE: 05/14/17 TIME: 13:30 Operative Report Preoperative Diagnosis gi bleeding Postoperative Diagnosis gi bleeding Operation/Procedure Performed colonoscopy Provider: MARY PAYNE MD Estimated blood loss: none Transfusion Required: no Specimen: none Grafts/Implants: none Complications: no MARY PAYNE MD May 14, 2017 13:31
--- NOTE | 2017-05-14 15:44 | GILP ---
DATE OF PROCEDURE: 05/14/2017 PROCEDURE PERFORMED: Colonoscopy. SURGEON: Charlie Rai MD. INDICATION FOR PROCEDURE: The patient is an 87-year-old female undergoing this procedure for positive stool guaiac and anemia. The risks of the procedure related complications, anesthetic risks and alternatives were discussed and informed consent was obtained. DESCRIPTION OF PROCEDURE: The patient was brought to OR Room Number 2 and sedated by [____]. After optimal sedation the scope was passed with much ease into the rectum, and also sigmoid, descending, transverse colon and all the way into the cecum. The IC valve was identified. Transillumination was positive. The appendicial orifice was covered with stool, while coming out the mucosa it was thoroughly inspected. There was some solid stool in the transverse colon, but the rest of the colon appeared grossly normal. No diverticulitis seen. No occult tumor identified. There was a sessile polyp in the rectum, 3 to 4 such flat polyps were seen and all were hyperplastic and diminutive. The patient had a hemorrhoid. IMPRESSION: 1. Moderate-size hemorrhoid. 2. Otherwise negative all the way into the cecum. 3. Preparation was adequate to poor. 4. A sessile diminutive polyp in the rectum most probably hyperplastic. PLAN: 1. Give the patient a stool softener. 2. Monitor hemoglobin and hematocrit. Dictated By: Charlie Rai MD /ronaldo/chapin /Document#: [id number] CC: Charlie Rai MD;*EndCC*
== END | disposition home or self-care (01) ==
LOC: GIL 13:31
PROVIDERS: ATTEND Internal Medicine Gastroenterology
DX: K64.9 Unspecified hemorrhoids (principal); K62.1 Rectal polyp; R19.5 Other fecal abnormalities; D64.9 Anemia, unspecified; I48.91 Unspecified atrial fibrillation; I10 Essential (primary) hypertension; Z88.8 Allergy status to other drugs, medicaments and biological substances
CPT/HCPCS: 94002

== ENCOUNTER 2017-07-20 18:36 | Inpatient (IN) | payer MEDICARE, OTHER ==
[~2017-07-20] VITALS: Ht 154.9 cm; Wt 78.6 kg
[~2017-07-20 18:36] MED LIST changes: -ACET-2047 GTB; -APIX5TAB GTB
[2017-07-20 19:11] VITALS: Ht 154.9 cm; Wt 78.6 kg
--- NOTE | 2017-07-20 19:53 | RADRPT ---
PROCEDURE: XR Chest. CLINICAL INDICATION: Shortness of breath. TECHNIQUE: Single frontal view. COMPARISON: 05/07/2017 FINDINGS: There is interstitial disease bilaterally consistent with mild pulmonary edema. There is no focal ai rspace disease to suggest pneumonia. The heart is enlarged. There is calcification in the aorta consistent with atherosclerosis. Tracheos gely tube is in satisfactory position. There is no pleural effusion. There is no pneumothorax. IMPRESSION: 1. Mild pulmonary edema. 2. Cardiomegaly and atherosclerosis. 3. Tracheostomy tube. RPTAT: QQ .Nash Hudson MD, MD Date Time Electronically viewed and signed by .Nash Hudson MD, MD on 07/20/2017 19:53 .R/
[2017-07-20] MEDS ORDERED: DILTIAZEM 25 MG INJ IV ONE ×2 (20:00→20:30)
[2017-07-20] MEDS ORDERED: SOD CHLORIDE 0.9% 500 ML IV STA (20:30)
[2017-07-20] MEDS ORDERED: SOD CHLORIDE 0.9% 250 ML IV ONE (20:50)
[2017-07-20] MEDS ORDERED: ACETAMINOPHEN 325 MG TAB PO PRN (21:00)
[2017-07-20] MEDS ORDERED: ONDANSETRON 4 MG INJ IV PRN (21:00)
[2017-07-20] MEDS ORDERED: CEFTRIAXONE 1 GM/50 ML (PMX) 50 ML IVPB ONE (21:00)
--- NOTE | 2017-07-20 21:08 | ERD ---
ER Documentation Chief Complaint Chief Complaint low H&H, abnormal labs HPI This is an 87-year-old female who is vent dependent, status post PEG with a history of previous CVA, hypertension, and atrial fibrillation who presents to the emergency room for evaluation of low H&H. According to group home notes this patient had a hemoglobin less than 8. Her normal hemoglobin is around 9. The patient was sent in for evaluation and transfusion by her primary care physician, Dr. Maravilla. This patient is unable to give a history secondary to her chronic cognitive state ROS All systems reviewed and are negative except as per history of present illness. Medications Home Meds Reported Medications Lansoprazole* (Lansoprazole*) 30 Mg Capsule.dr, 30 MG GTB DAILY, CAP 12/18/16 Chlorhexidine Gluconate (Peridex) 473 Ml Mouthwash, 15 ML MM Q12H, BOTTLE 12/18/16 Bisacodyl* (Bisacodyl*) 10 Mg Supp, 10 MG MT Q2D, SUPP 12/18/16 Sod Phosphate/Sod Biphosphate* (Fleet* Enema Pediatric) 66.6 Ml Soln, 66.6 ML MT Q3D Y for CONSTIPATION, ENEMA 12/18/16 Labetalol Hcl* (Labetalol Hcl*) 100 Mg Tablet, 50 MG GTB Q6H, TAB 12/18/16 Metoprolol Tartrate* (Lopressor*) 50 Mg Tab, 50 MG GTB BID, #60 TAB 12/18/16 Magnesium Hydroxide* (Milk Of Magnesia*) 400 Mg/5 Ml Oral.susp, 30 ML GTB DAILY , ML 12/18/16 Losartan Potassium* (Losartan Potassium*) 100 Mg Tablet, 100 MG GTB DAILY, TAB 12/18/16 Levothyroxine Sodium* (Levothyroxine Sodium*) 125 Mcg Tablet, 125 MCG GTB BEFORE BREAKFAST, #30 TAB 12/18/16 Furosemide* (Furosemide*) 40 Mg Tablet, 40 MG GTB BID, TAB 12/18/16 Diltiazem Hcl* (Cardizem SR*) 60 Mg Capsr, 60 MG PO BID, #60 CAP 12/18/16 Digoxin* (Digox*) 125 Mcg Tablet, 0.125 MG GTB Q48H, TAB 12/18/16 Calcium Carbonate (NATURAL CALCIUM) 500 Mg Tablet, 500 MG GTB Q24, TAB 12/18/16 Atorvastatin* (Atorvastatin*) 40 Mg Tablet, 40 MG GTB QHS, #30 TAB 12/18/16 Ondansetron Hcl* (Zofran*) 4 Mg Tab, 4 MG GTB Q6H Y for NAUSEA AND OR VOMITING, TAB 12/18/16 Spironolactone* (Aldactone*) 25 Mg Tablet, 25 MG GTB BID, #60 TAB 12/18/16 Allergies Allergies: Coded Allergies: lovastatin (Verified Allergy, Unknown, 12/18/16) midazolam (Verified Allergy, Unknown, 12/18/16) zolpidem (Verified Allergy, Unknown, 12/18/16) PMhx/Soc History of Surgery: Yes (TRACH AND PEG PLACEMENT) Anesthesia Reaction: No Hx Neurological Disorder: Yes (CVA) Hx Respiratory Disorders: Yes (RESPIRTORY FAILURE) Hx Cardiac Disorders: Yes (HYPERTENSION, A-FIB) Hx Psychiatric Problems: No Hx Miscellaneous Medical Probl: Yes (DYSLIPIDEMIA) Hx Alcohol Use: No (SEE [place] EMR) Hx Substance Use: No (SEE [place] E[facility]) Hx Tobacco Use: No (SEE [place] E[facility]) Smoking Status: Never smoker Physical Exam Vitals Vital Signs Date Time Temp Pulse Resp B/P Pulse Ox O2 Delivery O2 Flow Rate FiO2 07/20/17 19:11 98.1 114 20 104/59 59 07/20/17 18:55 114 27 94 40 Physical Exam INITIAL VITAL SIGNS: Reviewed by me GENERAL: The patient is well developed and appropriate for usual state of health in no apparent distress HEENT: Tracheostomy in place pupils equal, round, and reactive to light. EOMI. There is no scleral icterus. NECK: C-spine is soft and supple, there is no meningismus. There is no cervical lymphadenopathy. LUNGS: Coarse breath sounds bilaterally. There are no rales, wheezes or rhonchi. HEART: Irregularly irregular rhythm, no murmurs, clicks, rubs or gallops. ABDOMEN: PEG tube in place, soft, non-tender, non-distended. There are bowel sounds in all four quadrants. No rebound or guarding. EXTREMITIES: There is no peripheral cyanosis or edema. No focal swelling or erythema. NEUROLOGICAL: The patient moves all four extremities with 5/5 strength. Cranial nerves II - XII are intact. Normal gait. Alert and oriented SKIN: There is no apparent rash or petechiae. HEME/LYMPHATIC: There is no evidence of excessive bruising or lymphedema. PSYCHIATRIC: The patient does not appear anxious or depressed. Result Diagram: 07/20/17192907/20/171929 Results 24 hrs Laboratory Tests Test 07/20/17 19:30 07/20/17 20:00 White Blood Count 5.910^3/ul Red Blood Count 2.6210^6/ul Hemoglobin 7.9g/dl Hematocrit 25.3% Mean Corpuscular Volume 96.6fl Mean Corpuscular Hemoglobin 30.2pg Mean Corpuscular Hemoglobin Concent 31.2g/dl Red Cell Distribution Width 16.0% Platelet Count 15211^3/UL Mean Platelet Volume 11.2fl Neutrophils % 67.0% Lymphocytes % 12.9% Monocytes % 6.8% Eosinophils % 12.7% Basophils % 0.3% Nucleated Red Blood Cells % 0.0/100WBC Neutrophils # 4.010^3/ul Lymphocytes # 0.810^3/ul Monocytes # 0.410^3/ul Eosinophils # 0.810^3/ul Basophils # 0.010^3/ul Nucleated Red Blood Cells # 0.010^3/ul Prothrombin Time 30.1Sec Prothrombin Time Ratio 2.4 INR International Normalized Ratio 2.83 Activated Partial Thromboplast Time 45.3Sec Sodium Level 138mmol/L Potassium Level 4.0mmol/L Chloride Level 99mmol/L Carbon Dioxide Level 29mmol/L Anion Gap 14 Blood Urea Nitrogen 75mg/dl Creatinine 1.39mg/dl Glucose Level 103mg/dl Calcium Level 8.6mg/dl Total Bilirubin 0.6mg/dl Direct Bilirubin 0.00mg/dl Indirect Bilirubin 0.6mg/dl Aspartate Amino Transf (AST/SGOT) 29IU/L Alanine Aminotransferase (ALT/SGPT) 41IU/L Alkaline Phosphatase 98IU/L Troponin I 0.097ng/ml Total Protein 7.8g/dl Albumin 3.5g/dl Globulin 4.30g/dl Albumin/Globulin Ratio 0.81 Lipase 50U/L Urine Color YELLOW Urine Clarity CLOUDY Urine pH 6.0 Urine Specific [place] 1.013 Urine Ketones NEGATIVEmg/dL Urine Nitrite NEGATIVEmg/dL Urine Bilirubin NEGATIVEmg/dL Urine Urobilinogen NEGATIVEmg/dL Urine Leukocyte Esterase 3+Yojana/ul Urine Microscopic RBC 2/HPF Urine Microscopic WBC 88/HPF Urine Squamous Epithelial Cells FEW/HPF Urine Bacteria FEW/HPF Urine Hemoglobin NEGATIVEmg/dL Urine Glucose NEGATIVEmg/dL Urine Total Protein NEGATIVEmg/dl Current Medications Medications (Trade) Dose Ordered Sig/Sara Route PRN Reason Start Time Stop Time Status Last Admin Dose Admin Diltiazem HCl (Cardizem Iv) 5 mg ONCE ONCE IV 07/20/17 20:00 07/20/17 20:01 DC 07/20/17 20:08 Diltiazem HCl 10 mg 10 mg ONCE ONCE IV 07/20/17 20:30 07/20/17 20:31 DC 07/20/17 20:33 Sodium Chloride (NS) 500 ml @ 500 mls/hr Q1H STAT IV 07/20/17 20:30 07/20/17 21:29 07/20/17 20:34 Ondansetron HCl (Zofran Inj) 4 mg ER BRIDGE PRN IV NAUSEA AND/OR VOMITING 07/20/17 21:00 07/21/17 20:59 Acetaminophen 650 mg 650 mg ER BRIDGE PRN PO MILD PAIN/FEVER 07/20/17 21:00 07/21/17 20:59 Sodium Chloride 250 ml @ 0 mls/hr Q0M ONCE IV 07/20/17 20:50 07/20/17 20:52 DC Ceftriaxone Sodium (Rocephin) 50 ml @ 100 mls/hr ONCE ONCE IVPB 07/20/17 21:00 07/20/17 21:29 Procedures/MDM EKG: Rate/Rhythm: A. fib QRS, ST, T-waves: [No changes consistent w/ acute ischemia] Impression: A. fib with RVR Chest X-ray 1V Interpreted by me: Soft Tissue: No acute abnormalities Bones: No acute abnormalities Mediastinum/Cardiac Silhouette/Lungs: Pulmonary edema This 87-year-old female presents to the emergency room for evaluation of low H& H. This patient's baseline hemoglobin is greater than 9 today was found to be 7.9. She was in A. fib with RVR with a rate of 123 bpm when I evaluated her. The patient was given 15 mg of Cardizem, and lab work was obtained. Urinalysis was also obtained which does demonstrate acute cystitis. This patient does not have an elevation in her troponin however given her age, A. fib with RVR, and low hemoglobin this patient will be placed in for admission. I have contacted her admitting physician Dr. Maravilla who is in agreement that this patient should be transfused 2 units of packed red blood cells and will be placed in for admission at this time on the telemetry floor. She is hemodynamically stable at this time with a mean arterial pressure greater than 65. The patient was given 1 g Rocephin after urine culture was obtained. She has no fever no, no leukocytosis. Critical Care: Excluding all billable procedures Time: 38 minutes Treatments/Evaluations: Close monitoring and treatment of unstable vital signs, cardiorespiratory, and neurologic status, while maintaining tight balance of fluid, respiratory, and cardiac interventions. Departure Diagnosis: Primary Impression: Atrial fibrillation with RVR Additional Impressions: Blood loss anemia Pulmonary edema Renal insufficiency Acute cystitis Condition: Stable BUTCH FRANCES DO Jul 20, 2017 21:08
[2017-07-21] VITALS (29 sets, daily range): BP systolic 104–153; BP diastolic 65–126; PULSE 82–139; RESP 14–25; TEMP 98
[2017-07-21] MEDS ORDERED: ATOR40TA68 PO (05:42)
[2017-07-21] MEDS ORDERED: NA PHOSPHATE/BIPHOS 66.6 ML ENEMA PR PRN (07:00)
[2017-07-21] MEDS ORDERED: ONDANSETRON 4 MG TAB GTB PRN (07:00)
[2017-07-21] MEDS ORDERED: LANSOPRAZOLE 30 MG CAP GTB SCH (09:00)
--- NOTE | 2017-07-21 09:11 | CONS ---
Date/Time of Note Date/Time of Note DATE: 07/21/17 TIME: 09:02 Assessment/Plan Assessment/Plan Chief Complaint/Hosp Course Impression: 1. Anemia: r/o GIB. My ALBERTO do not show melena or hematochezia 2. Atrial fibrillation with RVR 3. dysphagia s/p trach Recommendations: 1. monitor h/h and transfuse PRN hgb less than 7 2. f/u stool for occult blood. If positive, consider EGD and colonoscopy 3. increased PPI to bid dosing 4. cardiac eval and would need cardiology clearance before any endoscopic procedure 5. Dr. Rai to resume care of this patient tomorrow. Problems: Consultation Date/Type/Reason Admit Date/Time Jul 20, 2017 at 20:47 Date of Consultation: Jul 21, 2017 Type of Consultation: GI Reason for Consultation anemia, r/o GIB Hx of Present Illness Of note, history obtained from chart review as patient is non-verbal. 87-year-old female who is vent dependent, status post PEG with a history of previous CVA, hypertension, and atrial fibrillation who is admitted for low H& H. According to skilled nursing notes this patient had a hemoglobin less than 8. Her normal hemoglobin is around 9. The patient was sent in for evaluation and transfusion by her primary care physician, Dr. Maravilla. This patient is unable to give a history secondary to her chronic cognitive state. I discussed with ICU nurse and there is no current e/o overt GIB including melena, hematochezia, coffee ground emesis, or hematemesis. Subjective hx not possible: pt non-verbal Past Medical History CVA, atrial fibrillation Medical History: GERD, high cholesterol, hypertension Past Surgical History Trach, PEG Past Surgical Hx: endoscopy Family History Significant Family History: no pertinent family hx Social History Alcohol Use: none Smoking Status: Never smoker Drug Use: none Exam/Review of Systems Vital Signs Vitals Vital Signs Date Time Temp Pulse Resp B/P Pulse Ox O2 Delivery O2 Flow Rate FiO2 07/21/17 08:13 130 20 124/82 97 Mechanical Ventilator 07/21/17 07:54 40 07/21/17 07:30 98.0 Exam Constitutional: non-verbal Psych: confusion Head: atraumatic, normocephalic Eyes: nl conjunctiva, nl lids, nl sclera ENMT: mucosa pink and moist, nl external ears & nose, nl lips & teeth, nl nasal mucosa & septum Neck: non-tender, supple Respiratory: clear to auscultation, normal air movement Cardiovascular: nl pulses, regular rate and rhythm Gastrointestinal: bowel sounds, non-tender, soft Musculoskeletal: nl extremities to inspection, nl gait and stance Neurological: nl mental status, nl speech, nl strength Results Result Diagram: 07/20/17192907/20/171929 Results 24 hrs Laboratory Tests Test 07/20/17 19:30 07/20/17 20:00 White Blood Count 5.9 Red Blood Count 2.62 #L Hemoglobin 7.9 L Hematocrit 25.3 L Mean Corpuscular Volume 96.6 Mean Corpuscular Hemoglobin 30.2 Mean Corpuscular Hemoglobin Concent 31.2 L Red Cell Distribution Width 16.0 H Platelet Count 142 # Mean Platelet Volume 11.2 H Neutrophils % 67.0 Lymphocytes % 12.9 L Monocytes % 6.8 Eosinophils % 12.7 H Basophils % 0.3 Nucleated Red Blood Cells % 0.0 Neutrophils # 4.0 Lymphocytes # 0.8 Monocytes # 0.4 Eosinophils # 0.8 H Basophils # 0.0 Nucleated Red Blood Cells # 0.0 Prothrombin Time 30.1 #H Prothrombin Time Ratio 2.4 INR International Normalized Ratio 2.83 Activated Partial Thromboplast Time 45.3 H Sodium Level 138 Potassium Level 4.0 Chloride Level 99 Carbon Dioxide Level 29 Anion Gap 14 Blood Urea Nitrogen 75 H Creatinine 1.39 H Glucose Level 103 Calcium Level 8.6 Total Bilirubin 0.6 Direct Bilirubin 0.00 Indirect Bilirubin 0.6 Aspartate Amino Transf (AST/SGOT) 29 Alanine Aminotransferase (ALT/SGPT) 41 Alkaline Phosphatase 98 Troponin I 0.097 Total Protein 7.8 Albumin 3.5 Globulin 4.30 H Albumin/Globulin Ratio 0.81 Lipase 50 Urine Color YELLOW Urine Clarity CLOUDY A Urine pH 6.0 Urine Specific [place] 1.013 Urine Ketones NEGATIVE Urine Nitrite NEGATIVE Urine Bilirubin NEGATIVE Urine Urobilinogen NEGATIVE Urine Leukocyte Esterase 3+ H Urine Microscopic RBC 2 Urine Microscopic WBC 88 H Urine Squamous Epithelial Cells FEW Urine Bacteria FEW A Urine Hemoglobin NEGATIVE Urine Glucose NEGATIVE Urine Total Protein NEGATIVE Medications Medications Current Medications Diltiazem HCl (Cardizem) 60 mg Q6 GTB ; Start 07/21/17 at 12:00; Status UNV Bisacodyl (Dulcolax Supp) 10 mg Q2D [place] ; Start 07/21/17 at 09:00 Calcium Carbonate (Oyster Shell Calcium) 1.25 gm BID GTB ; Start 07/21/17 at 09 :00 Chlorhexidine Gluconate (Peridex) 15 ml Q12 MM ; Start 07/21/17 at 09:00 Digoxin (Digoxin) 0.125 mg Q2D@13 GTB ; Start 07/21/17 at 13:00 Lansoprazole (Prevacid) 30 mg DAILY GTB ; Start 07/21/17 at 09:00 Losartan Potassium (Cozaar) 100 mg DAILY GTB ; Start 07/21/17 at 09:00 Magnesium Hydroxide (Milk Of Mag) 30 ml DAILY GTB ; Start 07/21/17 at 09:00 Metoprolol Tartrate (Lopressor) 50 mg BID GTB ; Start 07/21/17 at 09:00 Ondansetron HCl (Zofran Tab) 4 mg Q6H PRN GTB NAUSEA AND/OR VOMITING; Start at 07:00 Sodium Biphosphate/ Sodium Phosphate (Fleet Enema Pediatric) 66.6 ml Q3D PRN [place] CONSTIPATION; Start 07/21/17 at 07:00; Status UNV Spironolactone (Aldactone) 25 mg BID GTB ; Start 07/21/17 at 09:00 MIENRVA TOVAR MD Jul 21, 2017 09:11
[2017-07-21] MEDS: SPIRONOLACTONE 25 MG TAB GTB SCH ×2 (09:24→21:03)
[2017-07-21] MEDS: MAGNESIUM HYDROXIDE 30ML CUP GTB SCH (09:24)
[2017-07-21] MEDS: METOPROLOL 50 MG TAB GTB SCH ×2 (09:25→21:03)
[2017-07-21] MEDS: LANSOPRAZOLE 30 MG CAP GTB SCH ×2 (09:25→20:22)
[2017-07-21] MEDS: CHLORHEXIDINE GLUCONATE 15 ML UD CUP MM SCH ×2 (09:26→21:03)
[2017-07-21] MEDS: BISACODYL 10 MG SUPP PR SCH (09:26)
[2017-07-21] MEDS: LOSARTAN 50 MG TAB GTB SCH (09:26)
[2017-07-21] MEDS: FUROSEMIDE 40 MG TAB GTB SCH ×2 (09:34→18:46)
[2017-07-21] MEDS: CALCIUM CARBONATE 1.25 GM TAB GTB SCH ×2 (12:00→21:02)
[2017-07-21] MEDS: LEVOTHYROXINE 125 MCG TAB GTB SCH (12:01)
[2017-07-21] MEDS ORDERED: CEFTRIAXONE 1 GM/50 ML (PMX) 50 ML IVPB SCH (13:00)
--- NOTE | 2017-07-21 13:05 | CONS ---
Date/Time of Note Date/Time of Note DATE: 07/21/17 TIME: 12:59 Assessment/Plan Assessment/Plan Additional Assessment/Plan IMP: 1. Anemia 2. VDRF 3. Afib with RVR 4. NADJA vs. CKD RECS: 1. Obtain UA and cultures 2. Vent support 3. BD's 4. Anemia w/u as per GI 5. Obtain ECHO Consultation Date/Type/Reason Admit Date/Time Jul 20, 2017 at 20:47 Type of Consultation: Pulm/CCM Hx of Present Illness Briefly, this is an 87-year-old female with VDRF, status post ttrach and PEG with a history of previous CVA, hypertension, and atrial fibrillation who is admitted for low H&H. There does not appear to have obvious evidence of blood loss, however, is in afib with RVR. Subjective hx not possible: pt non-verbal, pt critical, pt critical status Psychological: confusion Past Medical History Medical History: GERD, high cholesterol, hypertension Past Surgical History Past Surgical Hx: endoscopy Social History Alcohol Use: none Smoking Status: Never smoker Drug Use: none Exam/Review of Systems Vital Signs Vitals Vital Signs Date Time Temp Pulse Resp B/P Pulse Ox O2 Delivery O2 Flow Rate FiO2 07/21/17 12:00 122 07/21/17 11:35 16 98 40 07/21/17 08:13 124/82 Mechanical Ventilator 07/21/17 07:30 98.0 Exam Constitutional: distress Head: atraumatic, normocephalic Eyes: nl conjunctiva, nl sclera ENMT: intubated, mucosa pink and moist Neck: non-tender, supple Respiratory: clear to auscultation Cardiovascular: irregular rhythm Gastrointestinal: nl liver, spleen, non-tender, soft Extremities: normal pulses Neurological: confused Results Result Diagram: 07/21/1724 07/21/1724 Results 24 hrs Laboratory Tests Test 07/20/17 19:30 07/20/17 20:00 07/21/17 09:24 07/21/17 09:25 White Blood Count 5.9 6.4 Red Blood Count 2.62 #L 3.43 #L Hemoglobin 7.9 L 10.7 #L Hematocrit 25.3 L 32.1 #L Mean Corpuscular Volume 96.6 93.6 Mean Corpuscular Hemoglobin 30.2 31.2 Mean Corpuscular Hemoglobin Concent 31.2 L 33.3 Red Cell Distribution Width 16.0 H 15.9 H Platelet Count 142 # 158 Mean Platelet Volume 11.2 H 11.0 H Neutrophils % 67.0 78.6 H Lymphocytes % 12.9 L 10.0 L Monocytes % 6.8 5.9 Eosinophils % 12.7 H 4.7 Basophils % 0.3 0.5 Nucleated Red Blood Cells % 0.0 0.0 Neutrophils # 4.0 5.0 Lymphocytes # 0.8 0.6 L Monocytes # 0.4 0.4 Eosinophils # 0.8 H 0.3 Basophils # 0.0 0.0 Nucleated Red Blood Cells # 0.0 0.0 Prothrombin Time 30.1 #H Prothrombin Time Ratio 2.4 INR International Normalized Ratio 2.83 Activated Partial Thromboplast Time 45.3 H Sodium Level 138 141 Potassium Level 4.0 4.8 Chloride Level 99 103 Carbon Dioxide Level 29 27 Anion Gap 14 16 Blood Urea Nitrogen 75 H 73 H Creatinine 1.39 H 1.29 H Glucose Level 103 110 Calcium Level 8.6 9.4 Total Bilirubin 0.6 Direct Bilirubin 0.00 Indirect Bilirubin 0.6 Aspartate Amino Transf (AST/SGOT) 29 Alanine Aminotransferase (ALT/SGPT) 41 Alkaline Phosphatase 98 Troponin I 0.097 Total Protein 7.8 Albumin 3.5 Globulin 4.30 H Albumin/Globulin Ratio 0.81 Lipase 50 Urine Color YELLOW Urine Clarity CLOUDY A Urine pH 6.0 Urine Specific [place] 1.013 Urine Ketones NEGATIVE Urine Nitrite NEGATIVE Urine Bilirubin NEGATIVE Urine Urobilinogen NEGATIVE Urine Leukocyte Esterase 3+ H Urine Microscopic RBC 2 Urine Microscopic WBC 88 H Urine Squamous Epithelial Cells FEW Urine Bacteria FEW A Urine Hemoglobin NEGATIVE Urine Glucose NEGATIVE Urine Total Protein NEGATIVE Iron Level 65 Total Iron Binding Capacity 246 Percent Iron Saturation 26 Medications Medications Current Medications Diltiazem HCl (Cardizem) 60 mg Q6 GTB ; Start 07/21/17 at 12:00 Bisacodyl (Dulcolax Supp) 10 mg Q2D [place] Last administered on 07/21/17 09:26; Admin Dose 10 MG; Start 07/21/17 at 09:00 Calcium Carbonate (Oyster Shell Calcium) 1.25 gm BID GTB Last administered on 07/21/17 12:00; Admin Dose 1.25 GM; Start 07/21/17 at 09:00 Chlorhexidine Gluconate (Peridex) 15 ml Q12 MM Last administered on 07/21/17 09:26; Admin Dose 15 ML; Start 07/21/17 at 09:00 Digoxin (Digoxin) 0.125 mg Q2D@13 GTB ; Start 07/21/17 at 13:00 Losartan Potassium (Cozaar) 100 mg DAILY GTB Last administered on 07/21/17 09 :26; Admin Dose 100 MG; Start 07/21/17 at 09:00 Magnesium Hydroxide (Milk Of Mag) 30 ml DAILY GTB Last administered on 09:24; Admin Dose 30 ML; Start 07/21/17 at 09:00 Metoprolol Tartrate (Lopressor) 50 mg BID GTB Last administered on 07/21/17 09:25; Admin Dose 50 MG; Start 07/21/17 at 09:00 Ondansetron HCl (Zofran Tab) 4 mg Q6H PRN GTB NAUSEA AND/OR VOMITING; Start at 07:00 Sodium Biphosphate/ Sodium Phosphate (Fleet Enema Pediatric) 66.6 ml Q3D PRN [place] CONSTIPATION; Start 07/21/17 at 07:00 Spironolactone (Aldactone) 25 mg BID GTB Last administered on 07/21/17 09:24 ; Admin Dose 25 MG; Start 07/21/17 at 09:00 Lansoprazole 30 mg 30 mg BID@06,18 GTB Last administered on 07/21/17 09:25; Admin Dose 30 MG; Start 07/21/17 at 09:15 Ceftriaxone Sodium (Rocephin) 50 ml @ 100 mls/hr Q24H IVPB ; Start 07/21/17 at 13:00 BRYCE GIRALDO MD Jul 21, 2017 13:05
[2017-07-21] MEDS: DIGOXIN 0.125 MG TAB GTB SCH (13:16)
[2017-07-21] MEDS: DILTIAZEM 60 MG TAB GTB SCH ×3 (13:17→23:13)
--- NOTE | 2017-07-21 15:00 | CONS ---
DATE OF ADMISSION: 07/20/2017 DATE OF CONSULTATION: 07/21/2017 HISTORY OF PRESENT ILLNESS: Ms. Lynch is an unfortunate 87-year-old woman status post multiple C VAs in the past, now vent and trach dependent. She was transferred from her nursing home [facility] for a low hematocrit for which she was transfused. Additionally, was noted to have an atrial fibr illation with rapid ventricular rate. She has known atrial fibrillation in the past. PAST MEDICAL HISTORY: As above, in addition GERD, hypercholesterolemia, hypertension. 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 REVIEW OF SYSTEMS: Unable to obtain as the patient is nonverbal. PHYSICAL EXAMINATION: GENERAL: She is in no distress, on a ventilator. VITAL SIGNS: Temperature 98, pulse 125, blood pressure 124/82, oxygen saturation 97%. LUNGS: Clear. CARDIAC: Irregularly irregular rhythm. ABDOMEN: Obese and soft. EXTREMITIES: Reveal no edema. CURRENT MEDICATIONS: 1. Digoxin. 2. Diltiazem. 3. Lansoprazole. 4. Furosemide. 5. Losartan. 6. Magnesium. 7. Metoprolol. 8. Spironolactone. LABORATORY RESULTS: White count 6.4, hematocrit 32.1, platelet count 158. Sodium 141, potassium 4. 8, BUN 73, creatinine 1.2. ASSESSMENT: 1. Severe anemia, no clear source for the anemia. She is status post transfusion with a good respo nse. 2. Atrial fibrillation with rapid ventricular rate, p.o. medications restarted, will defer decision regarding anticoagulation to primary team given her severe anemia. At this time, I would recommend titrating beta parvin as tolerated for improved rate control. Dictated By: APOLONIA GARCIA/TONIO Conf#: [id number] DID#: [id number]
--- NOTE | 2017-07-21 15:00 | CONS ---
DATE OF ADMISSION: 07/20/2017 DATE OF CONSULTATION: 07/21/2017 HISTORY OF PRESENT ILLNESS: Ms. Lynch is an unfortunate 87-year-old woman status post multiple C VAs in the past, now vent and trach dependent. She was transferred from her [facility] for a low hematocrit for which she was transfused. Additionally, was noted to have an atrial fibr illation with rapid ventricular rate. She has known atrial fibrillation in the past. PAST MEDICAL HISTORY: As above, in addition GERD, hypercholesterolemia, hypertension. 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 REVIEW OF SYSTEMS: Unable to obtain as the patient is nonverbal. PHYSICAL EXAMINATION: GENERAL: She is in no distress, on a ventilator. VITAL SIGNS: Temperature 98, pulse 125, blood pressure 124/82, oxygen saturation 97%. LUNGS: Clear. CARDIAC: Irregularly irregular rhythm. ABDOMEN: Obese and soft. EXTREMITIES: Reveal no edema. CURRENT MEDICATIONS: 1. Digoxin. 2. Diltiazem. 3. Lansoprazole. 4. Furosemide. 5. Losartan. 6. Magnesium. 7. Metoprolol. 8. Spironolactone. LABORATORY RESULTS: White count 6.4, hematocrit 32.1, platelet count 158. Sodium 141, potassium 4. 8, BUN 73, creatinine 1.2. ASSESSMENT: 1. Severe anemia, no clear source for the anemia. She is status post transfusion with a good respo nse. 2. Atrial fibrillation with rapid ventricular rate, p.o. medications restarted, will defer decision regarding anticoagulation to primary team given her severe anemia. At this time, I would recommend titrating beta parvin as tolerated for improved rate control. Dictated By: APOLONIA GARCIA/TONIO Conf#: [id number] DID#: [id number]
--- NOTE | 2017-07-21 15:23 | HP ---
DATE OF ADMISSION: 07/20/2017 HISTORY OF PRESENT ILLNESS: This is an 87-year-old female with a past medical history of ventilator y-dependent respiratory failure, history of dysphagia, status post PEG, history of chronic encephalo richard, history of AFib, history of CVA, hypothyroidism who presented to [facility] from her [facility] facility due to abnormal labs. The patient was noted to be severely anemi c with a hemoglobin level of 7. Upon arrival to [facility], the patient had labor atory data that showed a hemoglobin of 7.8. The patient was typed and crossed 2 units of PRBC. The patient also in the emergency room was noted to be in AFib with rapid rate and was given diltiazem in the emergency room. Upon my evaluation of the patient at this time she is currently stable. There have been no reports of hemoptysis, hematemesis or hematochezia. PAST MEDICAL HISTORY: As stated above, history of CVA, history of chronic respiratory failure, hist ory of dysphagia, history of chronic encephalopathy, history of AFib, history of dyslipidemia. PAST SURGICAL HISTORY: Status post trach and PEG. FAMILY HISTORY: Noncontributory. SOCIAL HISTORY: Lives at a skilled nurse facility. MEDICATIONS: The patient's medications have been reviewed and reconciled. ALLERGIES: Please see list. REVIEW OF SYSTEMS: Unable to do adequate review of systems. The patient is altered. Pertinent pos itives obtained by reviewing medical records, speaking to hospital staff, stated in HPI, otherwise n egative. PHYSICAL EXAMINATION: VITAL SIGNS: Blood pressure is 121/76, respirations 17, pulse 70, temperature 97.6. HEENT: Head is normocephalic. NECK: Shows a trach. HEART: Regular rate. LUNGS: Show diminished breath sounds at the base. ABDOMEN: Soft, nontender to palpation. No rebound or guarding. EXTREMITIES: Negative for clubbing, cyanosis, no edema. DERMATOLOGIC: No rashes. MUSCULOSKELETAL: No joint effusions. NEUROLOGIC: No change in exam. LABORATORY DATA: Shows a white count of 6.4, hemoglobin 10.7, hematocrit 32.1, platelet count is 15 8. Sodium 141, potassium 4.8, chloride 103, BUN 73, creatinine 1.29. Urinalysis shows 88 WBCs. ASSESSMENT AND PLAN: This is an 87-year-old female who presents with: 1. Severe anemia. Etiology may be secondary to lower gastrointestinal bleed. The patient is statu s post 2 units of PRBC with appropriate hemoglobin response. Plan is to check an iron panel, check stool for occult blood. We will hold anticoagulation therapy, we will place a GI consult for evalua tion. 2. Ventilator-dependent respiratory failure. The patient's vent settings and ABG were reviewed. C ontinue to monitor. Follow up with pulmonary. 3. Dysphagia, status post percutaneous endoscopic gastrostomy. Will resume tube feedings if okay w ith gastroenterology. 4. Nonoliguric acute kidney injury on top of chronic kidney disease. Etiology is likely due to hem odynamics. Plan will be to continue current treatment plan, supportive care, renally dose all meds. 5. 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 Continue to monitor. 6. Atrial fibrillation with rapid rate. Continue current medical management, place a cardiology co nsult to follow, to hold anticoagulation therapy in the setting of possible gastrointestinal bleed. 7. Congestive heart failure. Continue current medical management. 8. Hypothyroidism. Continue Synthroid. 9. Hypertension. Continue current blood pressure regimen. 10. Gastrointestinal and deep venous thrombosis prophylaxis. Continue proton pump inhibitor and se quential leg squeezers. 11. Possible urinary tract infection. Continue current antibiotic therapy. Dictated By: NIRMALA RODRIGUEZ/TONIO Conf#: [id number] DID#: [id number]
[2017-07-21] MEDS: CEFEPIME 1GM/50 ML (PMX) 50 ML IVPB SCH (18:46)
--- NOTE | 2017-07-21 23:00 | CONS ---
DATE OF ADMISSION: 07/20/2017 DATE OF CONSULTATION: 07/21/2017 TYPE OF CONSULTATION: Infectious disease. REASON FOR CONSULTATION: Antibiotic management. HISTORY OF PRESENT ILLNESS: Melissa Lynch is an 87-year-old female with numerous problem s who is admitted with anemia and is being seen for antibiotic management. Her past problems include: 1. Ventilator-dependent respiratory failure. 2. Dysphagia, status post G-tube placement. 3. Chronic encephalopathy. 4. History of atrial fibrillation. 5. History of CVA. 6. Hypothyroidism. The patient was noted to be severely anemic with hemoglobin of 7. In the emergency room, hemoglobin was 7.8. She was in atrial fibrillation with a rapid ventricular response and was given some dilti azem in the emergency room. On admission, her white count was 6.4, H and H of 10.7 and 32.1, platel et count 158,000, BUN and creatinine 73/1.29. Urinalysis showed 88 white cells per high-power field . PAST MEDICAL HISTORY: Operations: Status post trach and PEG. Medical history is as outlined. FAMILY HISTORY: Noncontributory. SOCIAL HISTORY: She lives in a senior care facility. No history of smoking, drinking or abuses drugs. ALLERGIES: NONE TO PENICILLIN, SULFA OR FOODS. MEDICATIONS: Per chart. REVIEW OF SYSTEMS: As per HPI. PHYSICAL EXAMINATION: GENERAL: The patient is an elderly-appearing 87-year-old female who is awake, noncommunicative, in no acute distress. VITAL SIGNS: Stable. She is afebrile. SKIN: Without generalized rash. HEENT: Within normal limits. NECK: With tracheostomy. HEART: She has irregularly irregular rhythm. CHEST: Decreased breath sounds at the bases. ABDOMEN: Soft, nontender. G-tube in place. No organosplenomegaly or masses. EXTREMITIES: Without cyanosis, clubbing or edema. RECTAL AND GENITAL: Deferred. NEUROLOGIC: No focal neurological abnormalities. IMPRESSION AND PLAN: The patient has severe anemia and is being transfused. She has ventilator dep endent respiratory failure, dysphagia and numerous other problems. In addition, she has possible ur inary tract infection. Her urine shows 3+ leukocyte esterase, 88 white cells per high-power field. BUN and creatinine 73/1.29. The patient was begun on ceftriaxone, but she does come from a prison so I am going to switch her to cefepime. I will dictate my findings to Dr. Maravilla, Dr. Eduin velasquez, Dr. Sabina Dr. . Dictated By: EDUARD VELA MD, JD/TONIO Conf#: [id number] DID#: [id number]
--- NOTE | 2017-07-21 23:00 | CONS ---
DATE OF ADMISSION: 07/20/2017 DATE OF CONSULTATION: 07/21/2017 TYPE OF CONSULTATION: Infectious disease. REASON FOR CONSULTATION: Antibiotic management. HISTORY OF PRESENT ILLNESS: Melissa Lynch is an 87-year-old female with numerous problem s who is admitted with anemia and is being seen for antibiotic management. Her past problems include: 1. Ventilator-dependent respiratory failure. 2. Dysphagia, status post G-tube placement. 3. Chronic encephalopathy. 4. History of atrial fibrillation. 5. History of CVA. 6. Hypothyroidism. The patient was noted to be severely anemic with hemoglobin of 7. In the emergency room, hemoglobin was 7.8. She was in atrial fibrillation with a rapid ventricular response and was given some dilti azem in the emergency room. On admission, her white count was 6.4, H and H of 10.7 and 32.1, platel et count 158,000, BUN and creatinine 73/1.29. Urinalysis showed 88 white cells per high-power field . PAST MEDICAL HISTORY: Operations: Status post trach and PEG. Medical history is as outlined. FAMILY HISTORY: Noncontributory. SOCIAL HISTORY: [facility] in a [facility]. No history of smoking, drinking or abuses drugs. ALLERGIES: NONE TO PENICILLIN, SULFA OR FOODS. MEDICATIONS: Per chart. REVIEW OF SYSTEMS: As per HPI. PHYSICAL EXAMINATION: GENERAL: The patient is an elderly-appearing 87-year-old female who is awake, noncommunicative, in no acute distress. VITAL SIGNS: Stable. She is afebrile. SKIN: Without generalized rash. HEENT: Within normal limits. NECK: With tracheostomy. HEART: She has irregularly irregular rhythm. CHEST: Decreased breath sounds at the bases. ABDOMEN: Soft, nontender. G-tube in place. No organosplenomegaly or masses. EXTREMITIES: Without cyanosis, clubbing or edema. RECTAL AND GENITAL: Deferred. NEUROLOGIC: No focal neurological abnormalities. IMPRESSION AND PLAN: The patient has severe anemia and is being transfused. She has ventilator dep endent respiratory failure, dysphagia and numerous other problems. In addition, she has possible ur inary tract infection. Her urine shows 3+ leukocyte esterase, 88 white cells per high-power field. BUN and creatinine 73/1.29. The patient was begun on ceftriaxone, but she does come from a long-term so I am going to switch her to cefepime. I will dictate my findings to Dr. Maravilla, Dr. Eduin velasquez, Dr. Sabina Dr. . Dictated By: EDUARD VELA MD, JD/TONIO Conf#: [id number] DID#: [id number]
--- NOTE | 2017-07-21 23:00 | CONS ---
DATE OF ADMISSION: 07/20/2017 DATE OF CONSULTATION: 07/21/2017 TYPE OF CONSULTATION: Infectious disease. REASON FOR CONSULTATION: Antibiotic management. HISTORY OF PRESENT ILLNESS: Melissa Lynch is an 87-year-old female with numerous problem s who is admitted with anemia and is being seen for antibiotic management. Her past problems include: 1. Ventilator-dependent respiratory failure. 2. Dysphagia, status post G-tube placement. 3. Chronic encephalopathy. 4. History of atrial fibrillation. 5. History of CVA. 6. Hypothyroidism. The patient was noted to be severely anemic with hemoglobin of 7. In the emergency room, hemoglobin was 7.8. She was in atrial fibrillation with a rapid ventricular response and was given some dilti azem in the emergency room. On admission, her white count was 6.4, H and H of 10.7 and 32.1, platel et count 158,000, BUN and creatinine 73/1.29. Urinalysis showed 88 white cells per high-power field . PAST MEDICAL HISTORY: Operations: Status post trach and PEG. Medical history is as outlined. FAMILY HISTORY: Noncontributory. SOCIAL HISTORY: She lives in a long term facility. No history of smoking, drinking or abuses drugs. ALLERGIES: NONE TO PENICILLIN, SULFA OR FOODS. MEDICATIONS: Per chart. REVIEW OF SYSTEMS: As per HPI. PHYSICAL EXAMINATION: GENERAL: The patient is an elderly-appearing 87-year-old female who is awake, noncommunicative, in no acute distress. VITAL SIGNS: Stable. She is afebrile. SKIN: Without generalized rash. HEENT: Within normal limits. NECK: With tracheostomy. HEART: She has irregularly irregular rhythm. CHEST: Decreased breath sounds at the bases. ABDOMEN: Soft, nontender. G-tube in place. No organosplenomegaly or masses. EXTREMITIES: Without cyanosis, clubbing or edema. RECTAL AND GENITAL: Deferred. NEUROLOGIC: No focal neurological abnormalities. IMPRESSION AND PLAN: The patient has severe anemia and is being transfused. She has ventilator dep endent respiratory failure, dysphagia and numerous other problems. In addition, she has possible ur inary tract infection. Her urine shows 3+ leukocyte esterase, 88 white cells per high-power field. BUN and creatinine 73/1.29. The patient was begun on ceftriaxone, but she does come [place] a [place] so I am going to switch her to cefepime. I will dictate my findings to Dr. Maravilla, Dr. Eduin velasquez, Dr. Sabina Dr. . Dictated By: EDUARD VELA MD, JD/TONIO Conf#: [id number] DID#: [id number]
[2017-07-22] VITALS (33 sets, daily range): BP systolic 108–167; BP diastolic 54–111; PULSE 77–116; RESP 14–28
[2017-07-22] MEDS ORDERED: LORAZEPAM 2 MG INJ IV ONE (01:30)
[2017-07-22] MEDS: ACETAMINOPHEN 650MG/20.3ML CUP GTB PRN (01:39)
[2017-07-22] MEDS: LANSOPRAZOLE 30 MG CAP GTB SCH ×2 (05:09→17:27)
[2017-07-22] MEDS: DILTIAZEM 60 MG TAB GTB SCH ×3 (05:09→17:28)
[2017-07-22] MEDS: FUROSEMIDE 40 MG TAB GTB SCH ×2 (05:09→17:27)
[2017-07-22] MEDS: LEVOTHYROXINE 125 MCG TAB GTB SCH (06:15)
--- NOTE | 2017-07-22 07:24 | RADRPT ---
PROCEDURE: XR Chest. CLINICAL INDICATION: Shortness of breath. TECHNIQUE: Single frontal view. COMPARISON: 07/20/2017. FINDINGS: There is interstitial disease bilaterally consistent with mild pulmonary edema. There is right upper lobe air space disease consistent with pneumonia. The heart is enlarged. There is calcification in the aorta consistent with atherosclerosis. Tracheos gely tube is in satisfactory position. There is no pleural effusion. There is no pneumothorax. IMPRESSION: 1. Pulmonary edema. 2. Right upper lobe pneumonia. 3. Cardiomegaly and atherosclerosis. 4. Tracheostomy tube. 5. No other change from 07/20/2017. RPTAT: QQ .Nash Hudson MD, MD Date Time Electronically viewed and signed by .Nash Hudson MD, MD on 07/22/2017 07:24 .R/
[2017-07-22] MEDS: METOPROLOL 50 MG TAB GTB SCH ×2 (08:13→20:13)
[2017-07-22] MEDS: SPIRONOLACTONE 25 MG TAB GTB SCH ×2 (08:13→20:12)
[2017-07-22] MEDS: CHLORHEXIDINE GLUCONATE 15 ML UD CUP MM SCH ×2 (08:13→20:13)
[2017-07-22] MEDS: CALCIUM CARBONATE 1.25 GM TAB GTB SCH ×2 (08:13→20:12)
[2017-07-22] MEDS: LOSARTAN 50 MG TAB GTB SCH (08:14)
--- NOTE | 2017-07-22 08:48 | PN ---
DATE: 07/22/2017 SUBJECTIVE: The patient is stable. No events overnight. No fevers, chills, nausea, vomiting. OBJECTIVE: VITAL SIGNS: Blood pressure is 139/82, respirations 21, pulse 101, temperature 98.0. HEENT: Head is normocephalic. NECK: Supple. HEART: Regular rate. LUNGS: Show diminished breath sounds at base. ABDOMEN: Soft, nontender to palpation. No rebound or guarding. EXTREMITIES: Negative for clubbing, cyanosis, or edema. DERMATOLOGIC: No rashes. MUSCULOSKELETAL: No joint effusions. NEUROLOGIC: No change in exam. MEDICATIONS: The patient's medications have been reviewed. LABORATORY DATA: Shows sodium 142, potassium 4.5, BUN 75, creatinine 1.15, magnesium 2.7. White count 6.6, hemoglobin 10.8, hematocrit 32.8, platelet count is 162. Stool for OB is negative. IMAGING: Chest x-ray shows pulmonary edema. ASSESSMENT AND PLAN: 1. Severe anemia. Etiology is unclear. Questionable lower gastrointestinal bleed. The patient's stool for OB was negative. The patient is status post 2 units of PRBC with appropriate response. A GI consult was placed for evaluation. Continue to monitor. 2. Ventilator dependent respiratory failure. The patient's vent settings and ABG reviewed. Continue to monitor. Follow up with pulmonary. 3. Dysphagia, status post percutaneous endoscopic gastrostomy. Will resume tube feeding and there is no evidence of GI bleed at this time. 4. Nonoliguric acute kidney injury on top of chronic kidney disease. Etiology is secondary to hemodynamics. Continue current treatment plan, supportive care , renally dose all meds. 5. 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 Continue to monitor. 6. Atrial fibrillation. The patient's rate is currently controlled. Continue medical management. Will resume anticoagulation if okay with cardiology and gastroenterology. 7. Acute on chronic congestive heart failure, systolic and diastolic. The patient is mildly decompensated. Continue diuretic therapy and monitor. 8. Hypothyroidism. Continue Synthroid. 9. Hypertension. Continue current blood pressure regimen. 10. Urinary tract infection. Continue antibiotic regimen. 11. Gastrointestinal and deep venous thrombosis prophylaxis. Dictated By: NIRMALA RODRIGUEZ/TONIO Conf#: [id number] DID#: [id number] [facility]
[2017-07-22] MEDS: MAGNESIUM HYDROXIDE 30ML CUP GTB SCH (09:00)
--- NOTE | 2017-07-22 12:49 | CONS ---
Date/Time of Note Date/Time of Note DATE: 07/22/17 TIME: 12:47 Consult Date/Type/Reason Admit Date/Time Jul 20, 2017 at 20:47 Initial Consult Date 07/21/17 Type of Consultation: Pulm/CCM Subjective Patient remains comfortable this morning. No new events. No vasopressor support. Objective Vital Signs Date Time Temp Pulse Resp B/P Pulse Ox O2 Delivery O2 Flow Rate FiO2 07/22/17 12:00 98.5 85 14 125/77 94 Mechanical Ventilator 07/22/17 11:30 40 Intake and Output 07/21/17 07/21/17 07/22/17 15:00 23:00 07:00 Intake Total 700 ml 100 ml Output Total 500 ml 400 ml 665 ml Balance 200 ml -400 ml -565 ml Exam GENERAL: Elderly lady comfortable at rest on mechanical ventilation via tracheostomy VITAL SIGNS: per chart NECK: Supple. No JVD or lymphadenopathy. CARDIAC EXAM: S1, S2. No added sounds or murmurs. CHEST: clear bilaterally, No added sounds, rales or wheezes ABDOMEN: Soft, nontender. No guarding or rebound. EXTREMITIES: No cyanosis, clubbing or edema. NEUROLOGIC: Generalized weakness. No focal deficits. Results/Medications Result Diagram: 07/22/17 0550 07/22/17 0550 Results 24 hrs Laboratory Tests Test 07/21/17 18:25 07/22/17 05:00 07/22/17 05:19 07/22/17 05:50 Stool Occult Blood NEGATIVE Blood Gas Specimen Source Blood arterial Arterial Blood Date Drawn 07/22/2017 4:45:56 AM Arterial Blood pH (Temp corrected) 7.470 H Arterial Blood pCO2 (Temp correct) 36.9 Arterial Blood pO2 (Temp corrected) 68.5 L Arterial Blood HCO3 26.3 H Arterial Blood Base Excess 2.8 Arterial Blood Oxygen Saturation 93.3 L Brant Test ACCEPTAB Arterial Blood Gas Puncture Site Right Radial Arterial Blood Carboxyhemoglobin 0.6 Arterial Blood Methemoglobin 0.3 Blood Gas A-a O2 Differential 174.3 H Oxyhemoglobin Percent 92.5 L Total Hemoglobin 15.8 Blood Gas Temperature 37.0 Blood Gas Respiration Rate 10.0 Blood Gas Actual Respiration Rate 20 Blood Gas Modality VENT - AC FiO2 40.0 Blood Gas Tidal Volume 450.0 Blood Gas Low PEEP Setting 5.0 Blood Gas Notified Whom MA Blood Gas Notified Time 07/22/2017 5:04:49 AM Lab Scanned Report BLOOD TRANSFUSION White Blood Count 6.6 Red Blood Count 3.51 L Hemoglobin 10.8 L Hematocrit 32.8 L Mean Corpuscular Volume 93.4 Mean Corpuscular Hemoglobin 30.8 Mean Corpuscular Hemoglobin Concent 32.9 Red Cell Distribution Width 15.7 H Platelet Count 162 Mean Platelet Volume 11.1 H Neutrophils % 73.9 Lymphocytes % 14.8 L Monocytes % 7.0 Eosinophils % 3.2 Basophils % 0.5 Nucleated Red Blood Cells % 0.5 H Neutrophils # 4.8 Lymphocytes # 1.0 Monocytes # 0.5 Eosinophils # 0.2 Basophils # 0.0 Nucleated Red Blood Cells # 0.0 Sodium Level 142 Potassium Level 4.5 Chloride Level 105 Carbon Dioxide Level 26 Anion Gap 16 Blood Urea Nitrogen 75 H Creatinine 1.15 H Glucose Level 90 Lactic Acid Level 1.3 Calcium Level 9.1 Phosphorus Level 3.5 Magnesium Level 2.7 H Medications Current Medications Diltiazem HCl (Cardizem) 60 mg Q6 GTB Last administered on 07/22/17 05:09; Admin Dose 60 MG; Start 07/21/17 at 12:00 Bisacodyl (Dulcolax Supp) 10 mg Q2D VT Last administered on 07/21/17 09:26; Admin Dose 10 MG; Start 07/21/17 at 09:00 Calcium Carbonate (Oyster Shell Calcium) 1.25 gm BID GTB Last administered on 07/22/17 08:13; Admin Dose 1.25 GM; Start 07/21/17 at 09:00 Chlorhexidine Gluconate (Peridex) 15 ml Q12 MM Last administered on 07/22/17 08:13; Admin Dose 15 ML; Start 07/21/17 at 09:00 Digoxin (Digoxin) 0.125 mg Q2D@13 GTB Last administered on 07/21/17 13:16; Admin Dose 0.125 MG; Start 07/21/17 at 13:00 Losartan Potassium (Cozaar) 100 mg DAILY GTB Last administered on 07/22/17 08 :14; Admin Dose 100 MG; Start 07/21/17 at 09:00 Magnesium Hydroxide (Milk Of Mag) 30 ml DAILY GTB Last administered on 10/22/ 17at 09:24; Admin Dose 30 ML; Start 07/21/17 at 09:00 Metoprolol Tartrate (Lopressor) 50 mg BID GTB Last administered on 07/22/17 08:13; Admin Dose 50 MG; Start 07/21/17 at 09:00 Ondansetron HCl (Zofran Tab) 4 mg Q6H PRN GTB NAUSEA AND/OR VOMITING; Start at 07:00 Sodium Biphosphate/ Sodium Phosphate (Fleet Enema Pediatric) 66.6 ml Q3D PRN VT CONSTIPATION; Start 07/21/17 at 07:00 Spironolactone (Aldactone) 25 mg BID GTB Last administered on 07/22/17 08:13 ; Admin Dose 25 MG; Start 07/21/17 at 09:00 Lansoprazole 30 mg 30 mg BID@06,18 GTB Last administered on 07/22/17 05:09; Admin Dose 30 MG; Start 07/21/17 at 09:15 Cefepime HCl (Maxipime 1gm/50 ml (Pmx)) 50 ml @ 100 mls/hr Q24H IVPB Last administered on 07/21/17 18:46; Admin Dose 100 MLS/HR; Start 07/21/17 at 18: 00 Acetaminophen (Tylenol Liquid) 650 mg Q6H PRN GTB PAIN AND OR ELEVATED TEMP Last administered on 07/22/17 01:39; Admin Dose 650 MG; Start 07/22/17 at 01: 30 Assessment/Plan Chief Complaint/Hosp Course IMP: 1. Anemia 2. VDRF 3. Afib with RVR 4. NADJA vs. CKD 5. UTI gram-negative rods RECS: 1. Continue current antibiotics pending culture results 2. Vent support 3. BD's 4. Anemia w/u as per GI 5. Obtain ECHO Stable for transfer to telemetry. Problems: MELBA SEVERINO [facility] Jul 22, 2017 12:49
--- NOTE | 2017-07-22 14:01 | PN ---
DATE: 07/22/2017 SUBJECTIVE: Patient had an uneventful night. She is awake, looks comfortable and afebrile. VITAL SIGNS: Temperature 98.5, pulse 85, respirations 14, blood pressure 125/77, saturation 94 on 4 liters. WBC 6.6, H and H 10.8 and 32.8, platelets 162. Neutrophils 73.9, BUN 75, creatinine 1.15. MICROBIOLOGY: Urine culture growing gram-negative rods. ANTIMICROBIALS: The patient is on Cefepime. DIAGNOSTICS: Chest x-ray revealed right upper lobe pneumonia, pulmonary edema. INDWELLINGS: Trach, PEG, Lazar. PHYSICAL EXAMINATION: GENERAL: Fragile, elderly woman who is awake, in no distress. HEENT: Head atraumatic, normocephalic. Sclerae anicteric. Buccal mucosa dry. NECK: Supple. CHEST: Rise symmetrical. Breath sounds diminished to bases. HEART: S1, S2. ABDOMEN: Soft, bowel tones present. EXTREMITIES: No cyanosis. ASSESSMENT: 1. Urinary tract infection. 2. Healthcare-associated pneumonia. 3. Acute anemia on admission, hemoglobin and hematocrit stable. 4. Chronic respiratory failure. 5. Acute kidney injury on top of chronic kidney disease. PLAN: The patient remains stable on appropriate antimicrobials. Continue present care. Await regi l cultures. Monitor hemoglobin and hematocrit. Dictated By: NIKOLAS WATTS DELIVERY PERSON for [employer]UARD FLOWERS/TONIO Conf#: [id number] DID#: [id number]
--- NOTE | 2017-07-22 14:01 | PN ---
DATE: 07/22/2017 SUBJECTIVE: Patient had an uneventful night. She is awake, looks comfortable and afebrile. VITAL SIGNS: Temperature 98.5, pulse 85, respirations 14, blood pressure 125/77, saturation 94 on 4 liters. WBC 6.6, H and H 10.8 and 32.8, platelets 162. Neutrophils 73.9, BUN 75, creatinine 1.15. MICROBIOLOGY: Urine culture growing gram-negative rods. ANTIMICROBIALS: The patient is on Cefepime. DIAGNOSTICS: Chest x-ray revealed right upper lobe pneumonia, pulmonary edema. INDWELLINGS: Trach, PEG, Lazar. PHYSICAL EXAMINATION: GENERAL: Fragile, elderly woman who is awake, in no distress. HEENT: Head atraumatic, normocephalic. Sclerae anicteric. Buccal mucosa dry. NECK: Supple. CHEST: Rise symmetrical. Breath sounds diminished to bases. HEART: S1, S2. ABDOMEN: Soft, bowel tones present. EXTREMITIES: No cyanosis. ASSESSMENT: 1. Urinary tract infection. 2. Healthcare-associated pneumonia. 3. Acute anemia on admission, hemoglobin and hematocrit stable. 4. Chronic respiratory failure. 5. Acute kidney injury on top of chronic kidney disease. PLAN: The patient remains stable on appropriate antimicrobials. Continue present care. Await regi l cultures. Monitor hemoglobin and hematocrit. Dictated By: NIKOLAS WATTS LIQUIFIED NATURAL GAS SPECIALIST for [employer] FLOWERS/TONIO Conf#: [id number] DID#: [id number]
--- NOTE | 2017-07-22 14:01 | PN ---
DATE: 07/22/2017 SUBJECTIVE: Patient had an uneventful night. She is awake, looks comfortable and afebrile. VITAL SIGNS: Temperature 98.5, pulse 85, respirations 14, blood pressure 125/77, saturation 94 on 4 liters. WBC 6.6, H and H 10.8 and 32.8, platelets 162. Neutrophils 73.9, BUN 75, creatinine 1.15. MICROBIOLOGY: Urine culture growing gram-negative rods. ANTIMICROBIALS: The patient is on Cefepime. DIAGNOSTICS: Chest x-ray revealed right upper lobe pneumonia, pulmonary edema. INDWELLINGS: Trach, PEG, Lazar. PHYSICAL EXAMINATION: GENERAL: Fragile, elderly woman who is awake, in no distress. HEENT: Head atraumatic, normocephalic. Sclerae anicteric. Buccal mucosa dry. NECK: Supple. CHEST: Rise symmetrical. Breath sounds diminished to bases. HEART: S1, S2. ABDOMEN: Soft, bowel tones present. EXTREMITIES: No cyanosis. ASSESSMENT: 1. Urinary tract infection. 2. Healthcare-associated pneumonia. 3. Acute anemia on admission, hemoglobin and hematocrit stable. 4. Chronic respiratory failure. 5. Acute kidney injury on top of chronic kidney disease. PLAN: The patient remains stable on appropriate antimicrobials. Continue present care. Await regi l cultures. Monitor hemoglobin and hematocrit. Dictated By: NIKOLAS WATTS STRAP MAKER for [employer]OWERS/TONIO Conf#: [id number] DID#: [id number]
[2017-07-22] MEDS: CEFEPIME 1GM/50 ML (PMX) 50 ML IVPB SCH (17:26)
--- NOTE | 2017-07-22 17:54 | CONS ---
Date/Time of Note Date/Time of Note DATE: 07/22/17 TIME: 17:48 Consult Date/Type/Reason Admit Date/Time Jul 20, 2017 at 20:47 Initial Consult Date 07/21/17 Type of Consultation: cardiology Subjective CARDIOLOGY FOLLOW UP NOTE: S: D/W staff and Dr Muir rhythm was reviewed. pt remains in AFIB. HR has been mostly stable. intermittently elevated. pt remains s/p trach on vent. O: General: s/p trach on vent. HEENT: NC/AT. pupils are equal. round. NECK: s/p trach. . no stridor. CV: irregularly irregular. . systolic murmur; no gallop or rubs. PULM: no wheezing or rhonchi. GI: SOFT, NT, ND, no rebound or guarding . s/p PEG Extremity: trace B/L LE edema. no clubbing. neuro: opens her eye. . Psych: calm and pleasant rectal: deferred : normal Objective Vital Signs Date Time Temp Pulse Resp B/P Pulse Ox O2 Delivery O2 Flow Rate FiO2 07/22/17 16:00 106 07/22/17 15:00 23 164/111 96 Mechanical Ventilator 07/22/17 12:00 98.5 07/22/17 11:30 40 Intake and Output 07/21/17 07/21/17 07/22/17 15:00 23:00 07:00 Intake Total 700 ml 100 ml Output Total 500 ml 400 ml 665 ml Balance 200 ml -400 ml -565 ml Results/Medications Result Diagram: 07/22/17 0550 07/22/17 0550 Results 24 hrs Laboratory Tests Test 07/21/17 18:25 07/22/17 05:00 07/22/17 05:19 07/22/17 05:50 Stool Occult Blood NEGATIVE Blood Gas Specimen Source Blood arterial Arterial Blood Date Drawn 07/22/2017 4:45:56 AM Arterial Blood pH (Temp corrected) 7.470 H Arterial Blood pCO2 (Temp correct) 36.9 Arterial Blood pO2 (Temp corrected) 68.5 L Arterial Blood HCO3 26.3 H Arterial Blood Base Excess 2.8 Arterial Blood Oxygen Saturation 93.3 L Brant Test ACCEPTAB Arterial Blood Gas Puncture Site Right Radial Arterial Blood Carboxyhemoglobin 0.6 Arterial Blood Methemoglobin 0.3 Blood Gas A-a O2 Differential 174.3 H Oxyhemoglobin Percent 92.5 L Total Hemoglobin 15.8 Blood Gas Temperature 37.0 Blood Gas Respiration Rate 10.0 Blood Gas Actual Respiration Rate 20 Blood Gas Modality VENT - AC FiO2 40.0 Blood Gas Tidal Volume 450.0 Blood Gas Low PEEP Setting 5.0 Blood Gas Notified Whom LUPE Blood Gas Notified Time 07/22/2017 5:04:49 AM Lab Scanned Report BLOOD TRANSFUSION White Blood Count 6.6 Red Blood Count 3.51 L Hemoglobin 10.8 L Hematocrit 32.8 L Mean Corpuscular Volume 93.4 Mean Corpuscular Hemoglobin 30.8 Mean Corpuscular Hemoglobin Concent 32.9 Red Cell Distribution Width 15.7 H Platelet Count 162 Mean Platelet Volume 11.1 H Neutrophils % 73.9 Lymphocytes % 14.8 L Monocytes % 7.0 Eosinophils % 3.2 Basophils % 0.5 Nucleated Red Blood Cells % 0.5 H Neutrophils # 4.8 Lymphocytes # 1.0 Monocytes # 0.5 Eosinophils # 0.2 Basophils # 0.0 Nucleated Red Blood Cells # 0.0 Sodium Level 142 Potassium Level 4.5 Chloride Level 105 Carbon Dioxide Level 26 Anion Gap 16 Blood Urea Nitrogen 75 H Creatinine 1.15 H Glucose Level 90 Lactic Acid Level 1.3 Calcium Level 9.1 Phosphorus Level 3.5 Magnesium Level 2.7 H Medications Current Medications Diltiazem HCl (Cardizem) 60 mg Q6 GTB Last administered on 07/22/17 17:28; Admin Dose 60 MG; Start 07/21/17 at 12:00 Bisacodyl (Dulcolax Supp) 10 mg Q2D CA Last administered on 07/21/17 09:26; Admin Dose 10 MG; Start 07/21/17 at 09:00 Calcium Carbonate (Oyster Shell Calcium) 1.25 gm BID GTB Last administered on 07/22/17 08:13; Admin Dose 1.25 GM; Start 07/21/17 at 09:00 Chlorhexidine Gluconate (Peridex) 15 ml Q12 MM Last administered on 07/22/17 08:13; Admin Dose 15 ML; Start 07/21/17 at 09:00 Digoxin (Digoxin) 0.125 mg Q2D@13 GTB Last administered on 07/21/17 13:16; Admin Dose 0.125 MG; Start 07/21/17 at 13:00 Losartan Potassium (Cozaar) 100 mg DAILY GTB Last administered on 07/22/17 08 :14; Admin Dose 100 MG; Start 07/21/17 at 09:00 Magnesium Hydroxide (Milk Of Mag) 30 ml DAILY GTB Last administered on 09:24; Admin Dose 30 ML; Start 07/21/17 at 09:00 Metoprolol Tartrate (Lopressor) 50 mg BID GTB Last administered on 07/22/17 08:13; Admin Dose 50 MG; Start 07/21/17 at 09:00 Ondansetron HCl (Zofran Tab) 4 mg Q6H PRN GTB NAUSEA AND/OR VOMITING; Start at 07:00 Sodium Biphosphate/ Sodium Phosphate (Fleet Enema Pediatric) 66.6 ml Q3D PRN [place] CONSTIPATION; Start 07/21/17 at 07:00 Spironolactone (Aldactone) 25 mg BID GTB Last administered on 07/22/17 08:13 ; Admin Dose 25 MG; Start 07/21/17 at 09:00 Lansoprazole 30 mg 30 mg BID@06,18 GTB Last administered on 07/22/17 17:27; Admin Dose 30 MG; Start 07/21/17 at 09:15 Cefepime HCl (Maxipime 1gm/50 ml (Pmx)) 50 ml @ 100 mls/hr Q24H IVPB Last administered on 07/22/17 17:26; Admin Dose 100 MLS/HR; Start 07/21/17 at 18: 00 Acetaminophen (Tylenol Liquid) 650 mg Q6H PRN GTB PAIN AND OR ELEVATED TEMP Last administered on 07/22/17 01:39; Admin Dose 650 MG; Start 07/22/17 at 01: 30 Assessment/Plan Chief Complaint/Hosp Course 1. anemia: ? Gastrointestinal bleed. stable now. - Follow-up with GI rec. 2. Afib: ON HR control cont betablocker and cardizem. dig pt is back on eliquis as well. not anticoagulated due to anemia 4. Ventilator dependent respiratory failure. cont resp care. f/u with pulm 5. Dysphagia status post PEG. 6. HTN: cont betablocker, hydralazine caridizem cont aldactone lasix 7. Congestive heart failure/. fluid overload cont ARB cont LASIX 8. 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 Continue to monitor. 9. History of cerebrovascular accident. Continue medical management. Thank you LETICIA MCWILLIAMS MD FAC Problems: LETICIA MCWILLIAMS MD Jul 22, 2017 17:54
--- NOTE | 2017-07-22 20:07 | CONS ---
Date/Time of Note Date/Time of Note DATE: 07/22/17 TIME: 20:05 Assessment/Plan Assessment/Plan Additional Assessment/Plan Chief Complaint/Hosp Course Impression: 1. Anemia: r/o GIB. My ALBERTO do not show melena or hematochezia 2. Atrial fibrillation with RVR 3. dysphagia s/p trach 4. CVA Recommendations: 1. monitor h/h and transfuse PRN hgb less than 7 2. f/u stool for occult blood. If positive, consider EGD. Patient had a colonoscopy last month which was grossly negative except for the hemorrhoids 3. increased PPI to bid dosing 4. cardiac eval and would need cardiology clearance before any endoscopic procedure Consultation Date/Type/Reason Admit Date/Time Jul 20, 2017 at 20:47 Initial Consult Date 07/21/17 Type of Consultation: cardiology 24 HR Interval Summary Free Text/Dictation No bleeding as per the staff no melena no hematochezia Exam/Review of Systems Vital Signs Vitals Vital Signs Date Time Temp Pulse Resp B/P Pulse Ox O2 Delivery O2 Flow Rate FiO2 07/22/17 17:20 112 24 94 40 07/22/17 17:00 144/95 Mechanical Ventilator 07/22/17 16:00 98.3 Intake and Output 07/21/17 07/21/17 07/22/17 15:00 23:00 07:00 Intake Total 700 ml 100 ml Output Total 500 ml 400 ml 665 ml Balance 200 ml -400 ml -565 ml Exam Constitutional: alert, oriented, well developed Psych: nl mood/affect, no complaints Head: atraumatic, normocephalic Eyes: EOMI, PERRL, nl conjunctiva, nl lids, nl sclera ENMT: nl external ears & nose, nl lips & teeth, nl nasal mucosa & septum Neck: non-tender, supple Respiratory: clear to auscultation, normal air movement Cardiovascular: nl pulses, regular rate and rhythm Gastrointestinal: nl liver, spleen, non-tender, soft Musculoskeletal: nl extremities to inspection, nl gait and stance Extremities: normal pulses 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, nl mental status, nl speech, nl strength Skin: nl turgor, No rash or lesions Lymph: nl lymph nodes Results Result Diagram: 07/22/17 0550 07/22/17 0550 Results 24 hrs Laboratory Tests Test 07/22/17 05:00 07/22/17 05:19 07/22/17 05:50 Blood Gas Specimen Source Blood arterial Arterial Blood Date Drawn 07/22/2017 4:45:56 AM Arterial Blood pH (Temp corrected) 7.470 H Arterial Blood pCO2 (Temp correct) 36.9 Arterial Blood pO2 (Temp corrected) 68.5 L Arterial Blood HCO3 26.3 H Arterial Blood Base Excess 2.8 Arterial Blood Oxygen Saturation 93.3 L Brant Test ACCEPTAB Arterial Blood Gas Puncture Site Right Radial Arterial Blood Carboxyhemoglobin 0.6 Arterial Blood Methemoglobin 0.3 Blood Gas A-a O2 Differential 174.3 H Oxyhemoglobin Percent 92.5 L Total Hemoglobin 15.8 Blood Gas Temperature 37.0 Blood Gas Respiration Rate 10.0 Blood Gas Actual Respiration Rate 20 Blood Gas Modality VENT - AC FiO2 40.0 Blood Gas Tidal Volume 450.0 Blood Gas Low PEEP Setting 5.0 Blood Gas Notified Whom MA Blood Gas Notified Time 07/22/2017 5:04:49 AM Lab Scanned Report BLOOD TRANSFUSION White Blood Count 6.6 Red Blood Count 3.51 L Hemoglobin 10.8 L Hematocrit 32.8 L Mean Corpuscular Volume 93.4 Mean Corpuscular Hemoglobin 30.8 Mean Corpuscular Hemoglobin Concent 32.9 Red Cell Distribution Width 15.7 H Platelet Count 162 Mean Platelet Volume 11.1 H Neutrophils % 73.9 Lymphocytes % 14.8 L Monocytes % 7.0 Eosinophils % 3.2 Basophils % 0.5 Nucleated Red Blood Cells % 0.5 H Neutrophils # 4.8 Lymphocytes # 1.0 Monocytes # 0.5 Eosinophils # 0.2 Basophils # 0.0 Nucleated Red Blood Cells # 0.0 Sodium Level 142 Potassium Level 4.5 Chloride Level 105 Carbon Dioxide Level 26 Anion Gap 16 Blood Urea Nitrogen 75 H Creatinine 1.15 H Glucose Level 90 Lactic Acid Level 1.3 Calcium Level 9.1 Phosphorus Level 3.5 Magnesium Level 2.7 H Medications Medications Current Medications Diltiazem HCl (Cardizem) 60 mg Q6 GTB Last administered on 07/22/17 17:28; Admin Dose 60 MG; Start 07/21/17 at 12:00 Bisacodyl (Dulcolax Supp) [address] Last administered on 07/21/17 09:26; Admin Dose 10 MG; Start 07/21/17 at 09:00 Calcium Carbonate (Oyster Shell Calcium) 1.25 gm BID GTB Last administered on 07/22/17 08:13; Admin Dose 1.25 GM; Start 07/21/17 at 09:00 Chlorhexidine Gluconate (Peridex) 15 ml Q12 MM Last administered on 07/22/17 08:13; Admin Dose 15 ML; Start 07/21/17 at 09:00 Digoxin (Digoxin) 0.125 mg Q2D@13 GTB Last administered on 07/21/17 13:16; Admin Dose 0.125 MG; Start 07/21/17 at 13:00 Losartan Potassium (Cozaar) 100 mg DAILY GTB Last administered on 07/22/17 08 :14; Admin Dose 100 MG; Start 07/21/17 at 09:00 Magnesium Hydroxide (Milk Of Mag) 30 ml DAILY GTB Last administered on 09:24; Admin Dose 30 ML; Start 07/21/17 at 09:00 Metoprolol Tartrate (Lopressor) 50 mg BID GTB Last administered on 07/22/17 08:13; Admin Dose 50 MG; Start 07/21/17 at 09:00 Ondansetron HCl (Zofran Tab) 4 mg Q6H PRN GTB NAUSEA AND/OR VOMITING; Start at 07:00 Sodium Biphosphate/ Sodium Phosphate (Fleet Enema Pediatric) 66.[address] CONSTIPATION; Start 07/21/17 at 07:00 Spironolactone (Aldactone) 25 mg BID GTB Last administered on 07/22/17 08:13 ; Admin Dose 25 MG; Start 07/21/17 at 09:00 Lansoprazole 30 mg 30 mg BID@06,18 GTB Last administered on 07/22/17 17:27; Admin Dose 30 MG; Start 07/21/17 at 09:15 Cefepime HCl (Maxipime 1gm/50 ml (Pmx)) 50 ml @ 100 mls/hr Q24H IVPB Last administered on 07/22/17 17:26; Admin Dose 100 MLS/HR; Start 07/21/17 at 18: 00 Acetaminophen (Tylenol Liquid) 650 mg Q6H PRN GTB PAIN AND OR ELEVATED TEMP Last administered on 10/23/17at 01:39; Admin Dose 650 MG; Start 07/22/17 at 01: 30 MARY PAYNE MD Jul 22, 2017 20:07
[2017-07-23] VITALS (29 sets, daily range): BP systolic 115–165; BP diastolic 57–87; PULSE 72–110; RESP 16–27
[2017-07-23] MEDS: DILTIAZEM 60 MG TAB GTB SCH ×4 (00:16→18:17)
[2017-07-23] MEDS: ACETAMINOPHEN 650MG/20.3ML CUP GTB PRN (01:02)
[2017-07-23] MEDS: FUROSEMIDE 40 MG TAB GTB SCH ×2 (05:27→18:17)
[2017-07-23] MEDS: LANSOPRAZOLE 30 MG CAP GTB SCH ×2 (05:27→18:15)
[2017-07-23] MEDS: LEVOTHYROXINE 125 MCG TAB GTB SCH (05:29)
--- NOTE | 2017-07-23 08:35 | PN ---
DATE: 07/23/2017 SUBJECTIVE: The patient is stable, was transferred from ICU to telemetry. No other events noted ov ernight. No hemoptysis, hematemesis or hematochezia. The patient did have some bouts of confusion and was attempting to pull out her IV lines, but that has resolved. OBJECTIVE: VITAL SIGNS: Blood pressure is 125/58, respirations 16, pulse 82, temperature 98.6. HEENT: Head is normocephalic. NECK: Supple. HEART: Regular rate. LUNGS: Show diminished breath sounds at the base. ABDOMEN: Soft, nontender to palpation without rebound or guarding. EXTREMITIES: Negative for clubbing, cyanosis, no edema. DERMATOLOGIC: No rashes. MUSCULOSKELETAL: No joint effusions. NEUROLOGIC: No change in exam. MEDICATIONS: The patient's medications have been reviewed. LABORATORY DATA: Sodium 142, potassium 4.5, BUN 75, creatinine 1.15, magnesium 2.7. White count 6. 6, hemoglobin 10.8, hematocrit 32.8, platelet count is 162. ASSESSMENT AND PLAN: 1. Severe anemia. Etiology is unclear. Questionable gastrointestinal bleed. The patient is statu s post 2 units of packed red blood cells. The patient's stool for OB was negative. GI consult was placed. Will continue proton pump inhibitor b.i.d. dosing. Follow up with GI for further recommend ations. 3. Ventilator-dependent respiratory failure. Ventilator settings and ABG is reviewed. Continue to monitor. Follow up with pulmonary. 4. Dysphagia, status post percutaneous endoscopic gastrostomy. Continue tube feeding. 5. Nonoliguric acute kidney injury on top of chronic kidney disease, etiology secondary to hemodyna mics. Continue current treatment plan, supportive care, renally dose all meds. 6. Mineral bone disease. Monitor calcium and phosphorus levels. 7. 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 Continue to monitor. 8. Atrial fibrillation, rate controlled. Continue medical management. Anticipate resumption of an ticoagulation. Will defer to cardiology. 9. Acute on chronic congestive heart failure, systolic and diastolic. Continue diuretic therapy. Follow up with cardiology. 10. Hypothyroidism. Continue Synthroid. 11. Hypertension. Continue current blood pressure regimen. 12. Urinary tract infection. Continue current antibiotic regimen. 13. Gastrointestinal and deep venous thrombosis prophylaxis. Dictated By: NIRMALA RODRIGUEZ/TONIO Conf#: [id number] [facility]#: [id number]
[2017-07-23] MEDS: LOSARTAN 50 MG TAB GTB SCH (09:09)
[2017-07-23] MEDS: CALCIUM CARBONATE 1.25 GM TAB GTB SCH ×2 (09:10→21:08)
[2017-07-23] MEDS: METOPROLOL 50 MG TAB GTB SCH ×2 (09:10→21:10)
[2017-07-23] MEDS: MAGNESIUM HYDROXIDE 30ML CUP GTB SCH (09:10)
[2017-07-23] MEDS: CHLORHEXIDINE GLUCONATE 15 ML UD CUP MM SCH ×2 (09:10→21:10)
[2017-07-23] MEDS: SPIRONOLACTONE 25 MG TAB GTB SCH ×2 (09:10→21:08)
[2017-07-23] MEDS: BISACODYL 10 MG SUPP PR SCH (09:10)
[2017-07-23] MEDS ORDERED: ACETAMINOPHEN 650MG/20.3ML CUP GTB PRN (11:30)
--- NOTE | 2017-07-23 12:32 | CONS ---
Date/Time of Note Date/Time of Note DATE: 07/23/17 TIME: 12:32 Assessment/Plan Assessment/Plan Additional Assessment/Plan Chief Complaint/Hosp Course Impression: 1. Anemia: r/o GIB. My ALBERTO do not show melena or hematochezia 2. Atrial fibrillation with RVR 3. dysphagia s/p trach 4. CVA Recommendations: 1. monitor h/h and transfuse PRN hgb less than 7 2. f/u stool for occult blood. If positive, consider EGD. Patient had a colonoscopy last month which was grossly negative except for the hemorrhoids 3. increased PPI to bid dosing 4. cardiac eval and would need cardiology clearance before any endoscopic procedure. 5. Hematocrit is stable at this point Consultation Date/Type/Reason Admit Date/Time Jul 20, 2017 at 20:47 Initial Consult Date 07/21/17 Type of Consultation: cardiology 24 HR Interval Summary Constitutional: improved, no complaints Exam/Review of Systems Vital Signs Vitals Vital Signs Date Time Temp Pulse Resp B/P Pulse Ox O2 Delivery O2 Flow Rate FiO2 07/23/17 11:10 98.8 90 25 122/77 93 07/23/17 05:35 40 07/22/17 17:00 Mechanical Ventilator Intake and Output 07/22/17 07/22/17 07/23/17 15:00 23:00 07:00 Intake Total 450 ml Output Total 520 ml 275 ml 300 ml Balance -520 ml -275 ml 150 ml Exam Constitutional: alert, oriented, well developed Psych: nl mood/affect, no complaints Head: atraumatic, normocephalic Eyes: EOMI, PERRL, nl conjunctiva, nl lids, nl sclera ENMT: nl external ears & nose, nl lips & teeth, nl nasal mucosa & septum Neck: non-tender, supple Respiratory: clear to auscultation, normal air movement Cardiovascular: nl pulses, regular rate and rhythm Gastrointestinal: nl liver, spleen, non-tender, soft Musculoskeletal: nl extremities to inspection, nl gait and stance Extremities: normal pulses 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, nl mental status, nl speech, nl strength Skin: nl turgor, No rash or lesions Lymph: nl lymph nodes Results Result Diagram: 07/23/17 0803 07/23/17 0803 Results 24 hrs Laboratory Tests Test 07/23/17 08:03 White Blood Count 6.3 Red Blood Count 3.66 L Hemoglobin 11.1 L Hematocrit 34.8 L Mean Corpuscular Volume 95.1 Mean Corpuscular Hemoglobin 30.3 Mean Corpuscular Hemoglobin Concent 31.9 L Red Cell Distribution Width 15.5 H Platelet Count 158 Mean Platelet Volume 11.3 H Neutrophils % 74.7 Lymphocytes % 11.7 L Monocytes % 7.1 Eosinophils % 5.4 Basophils % 0.6 Nucleated Red Blood Cells % 1.9 H Neutrophils # 4.7 Lymphocytes # 0.7 L Monocytes # 0.5 Eosinophils # 0.3 Basophils # 0.0 Nucleated Red Blood Cells # 0.1 H Sodium Level 145 H Potassium Level 3.5 Chloride Level 106 Carbon Dioxide Level 28 Anion Gap 15 Blood Urea Nitrogen 61 H Creatinine 1.05 H Glucose Level 101 Calcium Level 9.6 Phosphorus Level 3.6 Magnesium Level 2.5 Medications Medications Current Medications Diltiazem HCl (Cardizem) 60 mg Q6 GTB Last administered on 07/23/17 05:27; Admin Dose 60 MG; Start 07/21/17 at 12:00 Bisacodyl (Dulcolax Supp) 10 mg Q2D [place] Last administered on 07/23/17 09:10; Admin Dose 10 MG; Start 07/21/17 at 09:00 Calcium Carbonate (Oyster Shell Calcium) 1.25 gm BID GTB Last administered on 07/23/17 09:10; Admin Dose 1.25 GM; Start 07/21/17 at 09:00 Chlorhexidine Gluconate (Peridex) 15 ml Q12 MM Last administered on 07/23/17 09:10; Admin Dose 15 ML; Start 07/21/17 at 09:00 Digoxin (Digoxin) 0.125 mg Q2D@13 GTB Last administered on 07/21/17 13:16; Admin Dose 0.125 MG; Start 07/21/17 at 13:00 Losartan Potassium (Cozaar) 100 mg DAILY GTB Last administered on 07/23/17 09 :09; Admin Dose 100 MG; Start 07/21/17 at 09:00 Magnesium Hydroxide (Milk Of Mag) 30 ml DAILY GTB Last administered on 09:10; Admin Dose 30 ML; Start 07/21/17 at 09:00 Metoprolol Tartrate (Lopressor) 50 mg BID GTB Last administered on 07/23/17 09:10; Admin Dose 50 MG; Start 07/21/17 at 09:00 Ondansetron HCl (Zofran Tab) 4 mg Q6H PRN GTB NAUSEA AND/OR VOMITING; Start at 07:00 Sodium Biphosphate/ Sodium Phosphate (Fleet Enema Pediatric) 66.6 ml Q3D PRN [place] CONSTIPATION; Start 07/21/17 at 07:00 Spironolactone (Aldactone) 25 mg BID GTB Last administered on 07/23/17 09:10 ; Admin Dose 25 MG; Start 07/21/17 at 09:00 Lansoprazole 30 mg 30 mg BID@06,18 GTB Last administered on 07/23/17 05:27; Admin Dose 30 MG; Start 07/21/17 at 09:15 Cefepime HCl (Maxipime 1gm/50 ml (Pmx)) 50 ml @ 100 mls/hr Q24H IVPB Last administered on 07/22/17 17:26; Admin Dose 100 MLS/HR; Start 07/21/17 at 18: 00 Acetaminophen (Tylenol Liquid) 650 mg Q6H PRN GTB PAIN AND OR ELEVATED TEMP Last administered on 07/23/17 01:02; Admin Dose 650 MG; Start 07/22/17 at 01: 30 Acetaminophen (Tylenol Liquid) 650 mg Q6H PRN GTB PAIN AND OR ELEVATED TEMP; Start 07/23/17 at 11:30 MARY PAYNE MD Jul 23, 2017 12:32
--- NOTE | 2017-07-23 13:48 | CONS ---
Date/Time of Note Date/Time of Note DATE: 07/23/17 TIME: 13:46 Consult Date/Type/Reason Admit Date/Time Jul 20, 2017 at 20:47 Initial Consult Date 07/21/17 Type of Consultation: ID Objective Vital Signs Date Time Temp Pulse Resp B/P Pulse Ox O2 Delivery O2 Flow Rate FiO2 07/23/17 13:10 90 27 97 40 07/23/17 11:10 98.8 122/77 07/22/17 17:00 Mechanical Ventilator Intake and Output 07/22/17 07/22/17 07/23/17 15:00 23:00 07:00 Intake Total 450 ml Output Total 520 ml 275 ml 300 ml Balance -520 ml -275 ml 150 ml Results/Medications Result Diagram: 07/23/17 0803 07/23/17 0803 Results 24 hrs Laboratory Tests Test 07/23/17 08:03 White Blood Count 6.3 Red Blood Count 3.66 L Hemoglobin 11.1 L Hematocrit 34.8 L Mean Corpuscular Volume 95.1 Mean Corpuscular Hemoglobin 30.3 Mean Corpuscular Hemoglobin Concent 31.9 L Red Cell Distribution Width 15.5 H Platelet Count 158 Mean Platelet Volume 11.3 H Neutrophils % 74.7 Lymphocytes % 11.7 L Monocytes % 7.1 Eosinophils % 5.4 Basophils % 0.6 Nucleated Red Blood Cells % 1.9 H Neutrophils # 4.7 Lymphocytes # 0.7 L Monocytes # 0.5 Eosinophils # 0.3 Basophils # 0.0 Nucleated Red Blood Cells # 0.1 H Sodium Level 145 H Potassium Level 3.5 Chloride Level 106 Carbon Dioxide Level 28 Anion Gap 15 Blood Urea Nitrogen 61 H Creatinine 1.05 H Glucose Level 101 Calcium Level 9.6 Phosphorus Level 3.6 Magnesium Level 2.5 Medications Current Medications Diltiazem HCl (Cardizem) 60 mg Q6 GTB Last administered on 07/23/17 12:47; Admin Dose 60 MG; Start 07/21/17 at 12:00 Bisacodyl (Dulcolax Supp) 10 mg Q2D MD Last administered on 07/23/17 09:10; Admin Dose 10 MG; Start 07/21/17 at 09:00 Calcium Carbonate (Oyster Shell Calcium) 1.25 gm BID GTB Last administered on 07/23/17 09:10; Admin Dose 1.25 GM; Start 07/21/17 at 09:00 Chlorhexidine Gluconate (Peridex) 15 ml Q12 MM Last administered on 07/23/17 09:10; Admin Dose 15 ML; Start 07/21/17 at 09:00 Digoxin (Digoxin) 0.125 mg Q2D@13 GTB Last administered on 07/21/17 13:16; Admin Dose 0.125 MG; Start 07/21/17 at 13:00 Losartan Potassium (Cozaar) 100 mg DAILY GTB Last administered on 07/23/17 09 :09; Admin Dose 100 MG; Start 07/21/17 at 09:00 Magnesium Hydroxide (Milk Of Mag) 30 ml DAILY GTB Last administered on 09:10; Admin Dose 30 ML; Start 07/21/17 at 09:00 Metoprolol Tartrate (Lopressor) 50 mg BID GTB Last administered on 07/23/17 09:10; Admin Dose 50 MG; Start 07/21/17 at 09:00 Ondansetron HCl (Zofran Tab) 4 mg Q6H PRN GTB NAUSEA AND/OR VOMITING; Start at 07:00 Sodium Biphosphate/ Sodium Phosphate (Fleet Enema Pediatric) 66.6 ml Q3D PRN [place] CONSTIPATION; Start 07/21/17 at 07:00 Spironolactone (Aldactone) 25 mg BID GTB Last administered on 07/23/17 09:10 ; Admin Dose 25 MG; Start 07/21/17 at 09:00 Lansoprazole 30 mg 30 mg BID@06,18 GTB Last administered on 07/23/17 05:27; Admin Dose 30 MG; Start 07/21/17 at 09:15 Cefepime HCl (Maxipime 1gm/50 ml (Pmx)) 50 ml @ 100 mls/hr Q24H IVPB Last administered on 07/22/17 17:26; Admin Dose 100 MLS/HR; Start 07/21/17 at 18: 00 Acetaminophen (Tylenol Liquid) 650 mg Q6H PRN GTB PAIN AND OR ELEVATED TEMP Last administered on 07/23/17 01:02; Admin Dose 650 MG; Start 07/22/17 at 01: 30 Acetaminophen (Tylenol Liquid) 650 mg Q6H PRN GTB PAIN AND OR ELEVATED TEMP; Start 07/23/17 at 11:30 Assessment/Plan Chief Complaint/Hosp Course SUBJECTIVE: Tx to tele, awake, looks comfortable and afebrile. MICROBIOLOGY: Kleb ESBL/GNR. ANTIMICROBIALS: The patient is on Cefepime. DIAGNOSTICS: Chest x-ray revealed right upper lobe pneumonia, pulmonary edema. INDWELLINGS: Trach, PEG, Lazar. PHYSICAL EXAMINATION: GENERAL: Fragile, elderly woman who is awake, in no distress. HEENT: Head atraumatic, normocephalic. Sclerae anicteric. Buccal mucosa dry. NECK: Supple. CHEST: Rise symmetrical. Breath sounds diminished to bases. HEART: S1, S2. ABDOMEN: Soft, bowel tones present. EXTREMITIES: No cyanosis. ASSESSMENT: 1. Urinary tract infection. 2. Healthcare-associated pneumonia. 3. Acute anemia on admission, hemoglobin and hematocrit stable. 4. Chronic respiratory failure. 5. Acute kidney injury on top of chronic kidney disease. PLAN: The patient remains stable, will change abx to Merrem. Continue present care. Vent per pulmonary DW staff Problems: NIKOLAS WATST NP Jul 23, 2017 13:48
[2017-07-23] MEDS: DIGOXIN 0.125 MG TAB GTB SCH (13:56)
--- NOTE | 2017-07-23 14:19 | CONS ---
Date/Time of Note Date/Time of Note DATE: 07/23/17 TIME: 14:17 Consult Date/Type/Reason Admit Date/Time Jul 20, 2017 at 20:47 Initial Consult Date 07/21/17 Type of Consultation: cardiology Subjective CARDIOLOGY FOLLOW UP NOTE: S: D/W staff and rhythm was reviewed. pt remains in AFIB. HR has been mostly stable. . pt remains s/p trach on vent. nonverbal. O: General: s/p trach on vent. HEENT: NC/AT. pupils are equal. round. NECK: s/p trach. . no stridor. CV: irregularly irregular. . systolic murmur; no gallop or rubs. PULM: no wheezing or rhonchi. GI: SOFT, NT, ND, no rebound or guarding . s/p PEG Extremity: trace B/L LE edema. no clubbing. neuro: opens her eye. Psych: calm and pleasant rectal: deferred Objective Vital Signs Date Time Temp Pulse Resp B/P Pulse Ox O2 Delivery O2 Flow Rate FiO2 07/23/17 13:10 90 27 97 40 07/23/17 11:10 98.8 122/77 07/22/17 17:00 Mechanical Ventilator Intake and Output 07/22/17 07/22/17 07/23/17 15:00 23:00 07:00 Intake Total 450 ml Output Total 520 ml 275 ml 300 ml Balance -520 ml -275 ml 150 ml Results/Medications Result Diagram: 07/23/17 0803 07/23/17 0803 Results 24 hrs Laboratory Tests Test 07/23/17 08:03 White Blood Count 6.3 Red Blood Count 3.66 L Hemoglobin 11.1 L Hematocrit 34.8 L Mean Corpuscular Volume 95.1 Mean Corpuscular Hemoglobin 30.3 Mean Corpuscular Hemoglobin Concent 31.9 L Red Cell Distribution Width 15.5 H Platelet Count 158 Mean Platelet Volume 11.3 H Neutrophils % 74.7 Lymphocytes % 11.7 L Monocytes % 7.1 Eosinophils % 5.4 Basophils % 0.6 Nucleated Red Blood Cells % 1.9 H Neutrophils # 4.7 Lymphocytes # 0.7 L Monocytes # 0.5 Eosinophils # 0.3 Basophils # 0.0 Nucleated Red Blood Cells # 0.1 H Sodium Level 145 H Potassium Level 3.5 Chloride Level 106 Carbon Dioxide Level 28 Anion Gap 15 Blood Urea Nitrogen 61 H Creatinine 1.05 H Glucose Level 101 Calcium Level 9.6 Phosphorus Level 3.6 Magnesium Level 2.5 Medications Current Medications Diltiazem HCl (Cardizem) 60 mg Q6 GTB Last administered on 07/23/17 12:47; Admin Dose 60 MG; Start 07/21/17 at 12:00 Bisacodyl (Dulcolax Supp) 10 mg Q2D [place] Last administered on 07/23/17 09:10; Admin Dose 10 MG; Start 07/21/17 at 09:00 Calcium Carbonate (Oyster Shell Calcium) 1.25 gm BID GTB Last administered on 07/23/17 09:10; Admin Dose 1.25 GM; Start 07/21/17 at 09:00 Chlorhexidine Gluconate (Peridex) 15 ml Q12 MM Last administered on 07/23/17 09:10; Admin Dose 15 ML; Start 07/21/17 at 09:00 Digoxin (Digoxin) 0.125 mg Q2D@13 GTB Last administered on 07/23/17 13:56; Admin Dose 0.125 MG; Start 07/21/17 at 13:00 Losartan Potassium (Cozaar) 100 mg DAILY GTB Last administered on 07/23/17 09 :09; Admin Dose 100 MG; Start 07/21/17 at 09:00 Magnesium Hydroxide (Milk Of Mag) 30 ml DAILY GTB Last administered on 09:10; Admin Dose 30 ML; Start 07/21/17 at 09:00 Metoprolol Tartrate (Lopressor) 50 mg BID GTB Last administered on 07/23/17 09:10; Admin Dose 50 MG; Start 07/21/17 at 09:00 Ondansetron HCl (Zofran Tab) 4 mg Q6H PRN GTB NAUSEA AND/OR VOMITING; Start at 07:00 Sodium Biphosphate/ Sodium Phosphate (Fleet Enema Pediatric) 66.6 ml Q3D PRN [place] CONSTIPATION; Start 07/21/17 at 07:00 Spironolactone (Aldactone) 25 mg BID GTB Last administered on 07/23/17 09:10 ; Admin Dose 25 MG; Start 07/21/17 at 09:00 Lansoprazole (Prevacid) 30 mg BID@18 GTB Last administered on 07/23/17 05: 27; Admin Dose 30 MG; Start 07/21/17 at 09:15 Acetaminophen (Tylenol Liquid) 650 mg Q6H PRN GTB PAIN AND OR ELEVATED TEMP Last administered on 07/23/17 01:02; Admin Dose 650 MG; Start 07/22/17 at 01: 30 Acetaminophen 650 mg 650 mg Q6H PRN GTB PAIN AND OR ELEVATED TEMP; Start 07/23 at 11:30 Meropenem/Sodium Chloride (Merrem 500mg/50 ml(Pmx)) 50 ml @ 200 mls/hr Q8 IVPB ; Start 07/23/17 at 14:00 Assessment/Plan Chief Complaint/Hosp Course 1. anemia: ? Gastrointestinal bleed. stable now. - Follow-up with GI rec. 2. Afib: ON HR control cont betablocker and cardizem. dig not anticoagulated due to anemia 4. Ventilator dependent respiratory failure. cont resp care. f/u with pulm 5. Dysphagia status post PEG. 6. HTN: cont betablocker, hydralazine cardizem cont aldactone lasix 7. Congestive heart failure/. fluid overload cont ARB cont LASIX 8. 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 Continue to monitor. 9. History of cerebrovascular accident. Continue medical management. Thank you LETICIA MCWILLIAMS MD [facility] Problems: LETICIA MCWILLIAMS MD Jul 23, 2017 14:19
[2017-07-23] MEDS: MEROPENEM 500MG/50 ML (PMX) 50 ML IVPB SCH ×2 (14:37→21:11)
--- NOTE | 2017-07-23 15:26 | CONS ---
Date/Time of Note Date/Time of Note DATE: 07/23/17 TIME: 15:26 Consult Date/Type/Reason Admit Date/Time Jul 20, 2017 at 20:47 Initial Consult Date 07/21/17 Type of Consultation: Pulmonary Subjective Patient comfortable. Objective Vital Signs Date Time Temp Pulse Resp B/P Pulse Ox O2 Delivery O2 Flow Rate FiO2 07/23/17 13:10 90 27 97 40 07/23/17 13:00 97.7 165/76 07/22/17 17:00 Mechanical Ventilator Intake and Output 07/22/17 07/22/17 07/23/17 15:00 23:00 07:00 Intake Total 450 ml Output Total 520 ml 275 ml 300 ml Balance -520 ml -275 ml 150 ml Exam GENERAL: Elderly lady comfortable at rest on mechanical ventilation via tracheostomy VITAL SIGNS: per chart NECK: Supple. No JVD or lymphadenopathy. CARDIAC EXAM: S1, S2. No added sounds or murmurs. CHEST: clear bilaterally, No added sounds, rales or wheezes ABDOMEN: Soft, nontender. No guarding or rebound. EXTREMITIES: No cyanosis, clubbing or edema. NEUROLOGIC: Generalized weakness. No focal deficits. Results/Medications Result Diagram: 07/23/17 0803 07/23/17 0803 Results 24 hrs Laboratory Tests Test 07/23/17 08:03 White Blood Count 6.3 Red Blood Count 3.66 L Hemoglobin 11.1 L Hematocrit 34.8 L Mean Corpuscular Volume 95.1 Mean Corpuscular Hemoglobin 30.3 Mean Corpuscular Hemoglobin Concent 31.9 L Red Cell Distribution Width 15.5 H Platelet Count 158 Mean Platelet Volume 11.3 H Neutrophils % 74.7 Lymphocytes % 11.7 L Monocytes % 7.1 Eosinophils % 5.4 Basophils % 0.6 Nucleated Red Blood Cells % 1.9 H Neutrophils # 4.7 Lymphocytes # 0.7 L Monocytes # 0.5 Eosinophils # 0.3 Basophils # 0.0 Nucleated Red Blood Cells # 0.1 H Sodium Level 145 H Potassium Level 3.5 Chloride Level 106 Carbon Dioxide Level 28 Anion Gap 15 Blood Urea Nitrogen 61 H Creatinine 1.05 H Glucose Level 101 Calcium Level 9.6 Phosphorus Level 3.6 Magnesium Level 2.5 Medications Current Medications Diltiazem HCl (Cardizem) 60 mg Q6 GTB Last administered on 07/23/17t 12:47; Admin Dose 60 MG; Start 07/21/17 at 12:00 Bisacodyl (Dulcolax Supp) 10 mg Q2D [place] Last administered on 07/23/17 09:10; Admin Dose 10 MG; Start 07/21/17 at 09:00 Calcium Carbonate (Oyster Shell Calcium) 1.25 gm BID GTB Last administered on 07/23/17 09:10; Admin Dose 1.25 GM; Start 07/21/17 at 09:00 Chlorhexidine Gluconate (Peridex) 15 ml Q12 MM Last administered on 07/23/17 09:10; Admin Dose 15 ML; Start 07/21/17 at 09:00 Digoxin (Digoxin) 0.125 mg Q2D@13 GTB Last administered on 07/23/17 13:56; Admin Dose 0.125 MG; Start 07/21/17 at 13:00 Losartan Potassium (Cozaar) 100 mg DAILY GTB Last administered on 07/23/17 09 :09; Admin Dose 100 MG; Start 07/21/17 at 09:00 Magnesium Hydroxide (Milk Of Mag) 30 ml DAILY GTB Last administered on 09:10; Admin Dose 30 ML; Start 07/21/17 at 09:00 Metoprolol Tartrate (Lopressor) 50 mg BID GTB Last administered on 07/23/17 09:10; Admin Dose 50 MG; Start 07/21/17 at 09:00 Ondansetron HCl (Zofran Tab) 4 mg Q6H PRN GTB NAUSEA AND/OR VOMITING; Start at 07:00 Sodium Biphosphate/ Sodium Phosphate (Fleet Enema Pediatric) 66.6 ml Q3D PRN [place] CONSTIPATION; Start 07/21/17 at 07:00 Spironolactone (Aldactone) 25 mg BID GTB Last administered on 07/23/17 09:10 ; Admin Dose 25 MG; Start 07/21/17 at 09:00 Lansoprazole (Prevacid) 30 mg BID@06,18 GTB Last administered on 07/23/17 05: 27; Admin Dose 30 MG; Start 07/21/17 at 09:15 Acetaminophen (Tylenol Liquid) 650 mg Q6H PRN GTB PAIN AND OR ELEVATED TEMP Last administered on 07/23/17 01:02; Admin Dose 650 MG; Start 07/22/17 at 01: 30 Acetaminophen 650 mg 650 mg Q6H PRN GTB PAIN AND OR ELEVATED TEMP; Start 07/23 at 11:30 Meropenem/Sodium Chloride (Merrem 500mg/50 ml(Pmx)) 50 ml @ 200 mls/hr Q8 IVPB Last administered on 07/23/17 14:37; Admin Dose 200 MLS/HR; Start 07/23/17 at 14:00 Assessment/Plan Chief Complaint/Hosp Course IMP: 1. Anemia 2. VDRF 3. Afib with RVR 4. NADJA vs. CKD 5. UTI gram-negative rods RECS: 1. Continue current antibiotics pending culture results 2. Vent support 3. BD's 4. Anemia w/u as per GI 5. Obtain ECHO DC planning okay from pulmonary standpoint Problems: MELBA SEVERINO MD, FCCP Jul 23, 2017 15:26
[2017-07-23] MEDS: ACETAMINOPHEN 650MG/20.3ML CUP GTB SCH (18:15)
[2017-07-24] VITALS (32 sets, daily range): BP systolic 98–163; BP diastolic 54–89; PULSE 63–97; RESP 18–24
[2017-07-24] MEDS: ACETAMINOPHEN 650MG/20.3ML CUP GTB SCH ×5 (00:09→22:03)
[2017-07-24] MEDS: DILTIAZEM 60 MG TAB GTB SCH ×5 (00:09→23:44)
[2017-07-24] MEDS: LANSOPRAZOLE 30 MG CAP GTB SCH ×2 (05:22→17:32)
[2017-07-24] MEDS: MEROPENEM 500MG/50 ML (PMX) 50 ML IVPB SCH ×3 (05:22→22:03)
[2017-07-24] MEDS: FUROSEMIDE 40 MG TAB GTB SCH ×2 (05:23→17:32)
[2017-07-24] MEDS: LEVOTHYROXINE 125 MCG TAB GTB SCH (05:23)
[2017-07-24] MEDS: MAGNESIUM HYDROXIDE 30ML CUP GTB SCH (08:37)
[2017-07-24] MEDS: SPIRONOLACTONE 25 MG TAB GTB SCH ×2 (08:37→22:02)
[2017-07-24] MEDS: CALCIUM CARBONATE 1.25 GM TAB GTB SCH ×2 (08:37→22:01)
[2017-07-24] MEDS: LOSARTAN 50 MG TAB GTB SCH (08:37)
[2017-07-24] MEDS: CHLORHEXIDINE GLUCONATE 15 ML UD CUP MM SCH ×2 (08:37→22:02)
[2017-07-24] MEDS: METOPROLOL 50 MG TAB GTB SCH ×2 (08:38→22:02)
--- NOTE | 2017-07-24 08:50 | CONS ---
Date/Time of Note Date/Time of Note DATE: 07/24/17 TIME: 08:49 Consult Date/Type/Reason Admit Date/Time Jul 20, 2017 at 20:47 Initial Consult Date 07/21/17 Type of Consultation: cardiology Subjective CARDIOLOGY FOLLOW UP NOTE: S: D/W staff and rhythm was reviewed. pt remains in AFIB. HR has been stable. . pt remains s/p trach on vent. nonverbal. O: General: s/p trach on vent. HEENT: NC/AT. pupils are equal. round. NECK: s/p trach. . no stridor. CV: irregularly irregular. . systolic murmur; no gallop or rubs. PULM: no wheezing or rhonchi. GI: SOFT, NT, ND, no rebound or guarding . s/p PEG Extremity: trace B/L LE edema. no clubbing. neuro: opens her eye. does not answer questions. Psych: calm and pleasant rectal: deferred Objective Vital Signs Date Time Temp Pulse Resp B/P Pulse Ox O2 Delivery O2 Flow Rate FiO2 07/24/17 08:47 97 07/24/17 07:59 18 94 55 07/24/17 07:57 98.7 144/77 07/24/17 06:00 Mechanical Ventilator Intake and Output 07/23/17 07/23/17 07/24/17 15:00 23:00 07:00 Intake Total 600 ml 600 ml Output Total 500 ml 1400 ml Balance 100 ml -800 ml Results/Medications Result Diagram: 07/24/17 0609 07/24/17 0609 Results 24 hrs Laboratory Tests Test 07/24/17 06:09 White Blood Count 7.7 # Red Blood Count 3.77 L Hemoglobin 11.2 L Hematocrit 36.1 L Mean Corpuscular Volume 95.8 Mean Corpuscular Hemoglobin 29.7 Mean Corpuscular Hemoglobin Concent 31.0 L Red Cell Distribution Width 15.8 H Platelet Count 177 Mean Platelet Volume 11.3 H Neutrophils % 79.3 H Lymphocytes % 8.5 L Monocytes % 5.9 Eosinophils % 4.9 Basophils % 0.8 Nucleated Red Blood Cells % 1.3 H Neutrophils # 6.1 Lymphocytes # 0.7 L Monocytes # 0.5 Eosinophils # 0.4 Basophils # 0.1 Nucleated Red Blood Cells # 0.1 H Sodium Level 148 H Potassium Level 3.2 L Chloride Level 107 Carbon Dioxide Level 31 Anion Gap 13 Blood Urea Nitrogen 47 #H Creatinine 0.85 Glucose Level 124 Calcium Level 9.5 Medications Current Medications Diltiazem HCl (Cardizem) 60 mg Q6 GTB Last administered on 07/24/17 05:22; Admin Dose 60 MG; Start 07/21/17 at 12:00 Bisacodyl (Dulcolax Supp) 10 mg Q2D [place] Last administered on 07/23/17 09:10; Admin Dose 10 MG; Start 07/21/17 at 09:00 Calcium Carbonate (Oyster Shell Calcium) 1.25 gm BID GTB Last administered on 07/24/17 08:37; Admin Dose 1.25 GM; Start 07/21/17 at 09:00 Chlorhexidine Gluconate (Peridex) 15 ml Q12 MM Last administered on 07/24/17 08:37; Admin Dose 15 ML; Start 07/21/17 at 09:00 Digoxin (Digoxin) 0.125 mg Q2D@13 GTB Last administered on 07/23/17 13:56; Admin Dose 0.125 MG; Start 07/21/17 at 13:00 Losartan Potassium (Cozaar) 100 mg DAILY GTB Last administered on 07/24/17 08 :37; Admin Dose 100 MG; Start 07/21/17 at 09:00 Magnesium Hydroxide (Milk Of Mag) 30 ml DAILY GTB Last administered on 08:37; Admin Dose 30 ML; Start 07/21/17 at 09:00 Metoprolol Tartrate (Lopressor) 50 mg BID GTB Last administered on 07/24/17 08:38; Admin Dose 50 MG; Start 07/21/17 at 09:00 Ondansetron HCl (Zofran Tab) 4 mg Q6H PRN GTB NAUSEA AND/OR VOMITING; Start at 07:00 Sodium Biphosphate/ Sodium Phosphate (Fleet Enema Pediatric) 66.6 ml Q3D PRN [place] CONSTIPATION; Start 07/21/17 at 07:00 Spironolactone (Aldactone) 25 mg BID GTB Last administered on 07/24/17 08:37 ; Admin Dose 25 MG; Start 07/21/17 at 09:00 Lansoprazole 30 mg 30 mg BID@,18 GTB Last administered on 07/24/17 05:22; Admin Dose 30 MG; Start 07/21/17 at 09:15 Meropenem/Sodium Chloride (Merrem 500mg/50 ml(Pmx)) 50 ml @ 200 mls/hr Q8 IVPB Last administered on 07/24/17 05:22; Admin Dose 200 MLS/HR; Start 07/23/17 at 14:00 Acetaminophen (Tylenol Liquid) 650 mg Q6H GTB Last administered on 07/24/17 05:22; Admin Dose 650 MG; Start 07/23/17 at 17:30 Assessment/Plan Chief Complaint/Hosp Course 1. anemia: ? Gastrointestinal bleed. stable now. - Follow-up with GI rec. 2. Afib: ON HR control cont betablocker and cardizem. dig not anticoagulated due to anemia 4. Ventilator dependent respiratory failure. cont resp care. f/u with pulm 5. Dysphagia status post PEG. 6. HTN: cont betablocker, hydralazine cardizem cont aldactone lasix 7. Congestive heart failure/. fluid overload cont ARB cont LASIX 8. 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 Continue to monitor. 9. History of cerebrovascular accident. Continue medical management. 10. hypo K: will replace prn Thank you LETICIA MCWILLIAMS MD [facility] Problems: LETICIA MCWILLIAMS MD Jul 24, 2017 08:50
[2017-07-24] MEDS ORDERED: POTASSIUM CHLORIDE 20 MEQ POWDER FOR ORAL SOLN GTB ONE ×2 (09:00)
--- NOTE | 2017-07-24 10:47 | PN ---
DATE: 07/24/2017 SUBJECTIVE: The patient was agitated overnight and had to be placed on restraints. There are no ot her acute events noted. No hemoptysis, hematemesis, hematochezia. OBJECTIVE: VITAL SIGNS: Blood pressure 144/77, respirations 18, pulse 77, temperature 98.7. HEENT: Head is normocephalic. NECK: Supple. HEART: Regular rate. LUNGS: Show diminished breath sounds at the base. ABDOMEN: Soft, nontender to palpation without rebound or guarding. EXTREMITIES: Negative for clubbing, cyanosis, or edema. DERMATOLOGIC: No rashes. MUSCULOSKELETAL: No joint effusions. NEUROLOGIC: No change in exam. MEDICATIONS: Have been reviewed. LABORATORY DATA: Shows a white count 7.7, hemoglobin 11.2, hematocrit 36.0, platelet count 177. So dium 148, potassium 3.2, BUN 47, creatinine 0.85. ASSESSMENT AND PLAN: 1. Severe anemia, etiology is unclear. The patient is status post blood transfusion. Hemoglobin l evel has been stable. At this point, we will continue to monitor. Continue PPI. No plan for any e ndoscopy. 2. Ventilatory dependent respiratory failure. continue to monitor. 3. Dysphagia, status post PEG tube, tube feeding. 4. Hyponatremia. The patient's free water flushes we will increase to 200 mL every 4 hours, monito r closely. 5. Nonoliguric acute kidney injury on top of chronic kidney disease. Etiology is secondary to hemo dynamics. Continue current treatment plan, supportive care, renally dose all medication. 6. Mineral bone disorder. Monitor calcium and phosphorus levels. 7. Hypokalemia. Replete potassium chloride. 8. 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 Continue to monitor. 9. Atrial fibrillation, rate controlled. Continue medical management. 10. Urinary tract infection. Continue current antibiotic regimen. 11. Acute on chronic congestive heart failure, systolic/diastolic. Continue diuretic therapy. 12. Hypothyroidism. Continue Synthroid. 12. Hypertension. Continue current blood pressure regimen. 13. Gastrointestinal and deep venous thrombosis prophylaxis. DISPOSITION: Patient will undergo discharge planning back to assisted facility. Dictated By: NIRMALA RODRIGUEZ/TONIO Conf#: [id number] DID#: [id number]
--- NOTE | 2017-07-24 12:07 | CONS ---
Date/Time of Note Date/Time of Note DATE: 07/24/17 TIME: 12:05 Assessment/Plan Assessment/Plan Additional Assessment/Plan Ventilator setting; AC of 10, tidal volume 450, PEEP of 5, 55% FiO2. Assessment and recommendations; 1. Patient with history of chronic respiratory failure admitted for severe UTI and sepsis, clinically improved. 2. Chronic atrial fibrillation. 3. History of hypertension, hypo-thyroidism. 4. Mild CHF. Continue current treatment. Consultation Date/Type/Reason Admit Date/Time Jul 20, 2017 at 20:47 Initial Consult Date 07/21/17 Type of Consultation: Pulmonary 24 HR Interval Summary Free Text/Dictation Patient's condition is stable. Remains awake and alert. Has remained hemodynamically stable. Denies any shortness of breath. General exam; elderly woman, on ventilator via tracheostomy. Currently in no distress. Exam/Review of Systems Vital Signs Vitals Vital Signs Date Time Temp Pulse Resp B/P Pulse Ox O2 Delivery O2 Flow Rate FiO2 07/24/17 11:57 98.2 18 141/85 96 07/24/17 08:47 97 07/24/17 07:59 55 07/24/17 06:00 Mechanical Ventilator Intake and Output 07/23/17 07/23/17 07/24/17 15:00 23:00 07:00 Intake Total 600 ml 600 ml Output Total 500 ml 1400 ml Balance 100 ml -800 ml Exam HEENT exam; supple neck, positive JVD. No lymphadenopathy. Midline trachea. No thyromegaly. Patient has a tracheostomy in place. Pharynx is clear. Pupils are small bilaterally. Chest exam; diminished but clear breath sounds. S1-S2 audible, irregular rhythm. No murmurs. Abdomen exam; soft, no organomegaly. Bowel sounds audible. Nontender. Extremity exam; trace edema. [employer] exam; patient is awake and alert. Follows commands, moving all 4 extremities on command. Results Result Diagram: 07/24/17 0607/24/17 06 Results 24 hrs Laboratory Tests Test 07/24/17 06:09 White Blood Count 7.7 # Red Blood Count 3.77 L Hemoglobin 11.2 L Hematocrit 36.1 L Mean Corpuscular Volume 95.8 Mean Corpuscular Hemoglobin 29.7 Mean Corpuscular Hemoglobin Concent 31.0 L Red Cell Distribution Width 15.8 H Platelet Count 177 Mean Platelet Volume 11.3 H Neutrophils % 79.3 H Lymphocytes % 8.5 L Monocytes % 5.9 Eosinophils % 4.9 Basophils % 0.8 Nucleated Red Blood Cells % 1.3 H Neutrophils # 6.1 Lymphocytes # 0.7 L Monocytes # 0.5 Eosinophils # 0.4 Basophils # 0.1 Nucleated Red Blood Cells # 0.1 H Sodium Level 148 H Potassium Level 3.2 L Chloride Level 107 Carbon Dioxide Level 31 Anion Gap 13 Blood Urea Nitrogen 47 #H Creatinine 0.85 Glucose Level 124 Calcium Level 9.5 Medications Medications Current Medications Diltiazem HCl (Cardizem) 60 mg Q6 GTB Last administered on 07/24/17 05:22; Admin Dose 60 MG; Start 07/21/17 at 12:00 Bisacodyl (Dulcolax Supp) 10 mg Q2D [place] Last administered on 07/23/17 09:10; Admin Dose 10 MG; Start 07/21/17 at 09:00 Calcium Carbonate (Oyster Shell Calcium) 1.25 gm BID GTB Last administered on 07/24/17 08:37; Admin Dose 1.25 GM; Start 07/21/17 at 09:00 Chlorhexidine Gluconate (Peridex) 15 ml Q12 MM Last administered on 07/24/17 08:37; Admin Dose 15 ML; Start 07/21/17 at 09:00 Digoxin (Digoxin) 0.125 mg Q2D@13 GTB Last administered on 07/23/17 13:56; Admin Dose 0.125 MG; Start 07/21/17 at 13:00 Losartan Potassium (Cozaar) 100 mg DAILY GTB Last administered on 07/24/17 08 :37; Admin Dose 100 MG; Start 07/21/17 at 09:00 Magnesium Hydroxide (Milk Of Mag) 30 ml DAILY GTB Last administered on 08:37; Admin Dose 30 ML; Start 07/21/17 at 09:00 Metoprolol Tartrate (Lopressor) 50 mg BID GTB Last administered on 07/24/17 08:38; Admin Dose 50 MG; Start 07/21/17 at 09:00 Ondansetron HCl (Zofran Tab) 4 mg Q6H PRN GTB NAUSEA AND/OR VOMITING; Start at 07:00 Sodium Biphosphate/ Sodium Phosphate (Fleet Enema Pediatric) 66.6 ml Q3D PRN [place] CONSTIPATION; Start 07/21/17 at 07:00 Spironolactone (Aldactone) 25 mg BID GTB Last administered on 07/24/17 08:37 ; Admin Dose 25 MG; Start 07/21/17 at 09:00 Lansoprazole 30 mg 30 mg BID@06,18 GTB Last administered on 07/24/17 05:22; Admin Dose 30 MG; Start 07/21/17 at 09:15 Meropenem/Sodium Chloride (Merrem 500mg/50 ml(Pmx)) 50 ml @ 200 mls/hr Q8 IVPB Last administered on 07/24/17 05:22; Admin Dose 200 MLS/HR; Start 07/23/17 at 14:00 Acetaminophen (Tylenol Liquid) 650 mg Q6H GTB Last administered on 07/24/17 05:22; Admin Dose 650 MG; Start 07/23/17 at 17:30 Apixaban (Eliquis) 2.5 mg BID PO ; Start 07/24/17 at 21:00 Amantadine HCl (Symmetrel) 100 mg BID GTB ; Start 07/24/17 at 21:00 NICOLAS VASQUEZ Jul 24, 2017 12:07
--- NOTE | 2017-07-24 14:26 | CONS ---
Date/Time of Note Date/Time of Note DATE: 07/24/17 TIME: 14:24 Consult Date/Type/Reason Admit Date/Time Jul 20, 2017 at 20:47 Initial Consult Date 07/21/17 Type of Consultation: ID Objective Vital Signs Date Time Temp Pulse Resp B/P Pulse Ox O2 Delivery O2 Flow Rate FiO2 07/24/17 12:46 64 07/24/17 11:57 98.2 18 141/85 96 07/24/17 10:25 55 07/24/17 06:00 Mechanical Ventilator Intake and Output 07/23/17 07/23/17 07/24/17 15:00 23:00 07:00 Intake Total 600 ml 600 ml Output Total 500 ml 1400 ml Balance 100 ml -800 ml Results/Medications Result Diagram: 07/24/1760807/24/1709 Results 24 hrs Laboratory Tests Test 07/24/17 06:09 White Blood Count 7.7 # Red Blood Count 3.77 L Hemoglobin 11.2 L Hematocrit 36.1 L Mean Corpuscular Volume 95.8 Mean Corpuscular Hemoglobin 29.7 Mean Corpuscular Hemoglobin Concent 31.0 L Red Cell Distribution Width 15.8 H Platelet Count 177 Mean Platelet Volume 11.3 H Neutrophils % 79.3 H Lymphocytes % 8.5 L Monocytes % 5.9 Eosinophils % 4.9 Basophils % 0.8 Nucleated Red Blood Cells % 1.3 H Neutrophils # 6.1 Lymphocytes # 0.7 L Monocytes # 0.5 Eosinophils # 0.4 Basophils # 0.1 Nucleated Red Blood Cells # 0.1 H Sodium Level 148 H Potassium Level 3.2 L Chloride Level 107 Carbon Dioxide Level 31 Anion Gap 13 Blood Urea Nitrogen 47 #H Creatinine 0.85 Glucose Level 124 Calcium Level 9.5 Medications Current Medications Diltiazem HCl (Cardizem) 60 mg Q6 GTB Last administered on 07/24/17 12:00; Admin Dose 60 MG; Start 07/21/17 at 12:00 Bisacodyl (Dulcolax Supp) 10 mg Q2D [place] Last administered on 07/23/17 09:10; Admin Dose 10 MG; Start 07/21/17 at 09:00 Calcium Carbonate (Oyster Shell Calcium) 1.25 gm BID GTB Last administered on 07/24/17 08:37; Admin Dose 1.25 GM; Start 07/21/17 at 09:00 Chlorhexidine Gluconate (Peridex) 15 ml Q12 MM Last administered on 07/24/17 08:37; Admin Dose 15 ML; Start 07/21/17 at 09:00 Digoxin (Digoxin) 0.125 mg Q2D@13 GTB Last administered on 07/23/17 13:56; Admin Dose 0.125 MG; Start 07/21/17 at 13:00 Losartan Potassium (Cozaar) 100 mg DAILY GTB Last administered on 07/24/17 08 :37; Admin Dose 100 MG; Start 07/21/17 at 09:00 Magnesium Hydroxide (Milk Of Mag) 30 ml DAILY GTB Last administered on 08:37; Admin Dose 30 ML; Start 07/21/17 at 09:00 Metoprolol Tartrate (Lopressor) 50 mg BID GTB Last administered on 07/24/17 08:38; Admin Dose 50 MG; Start 07/21/17 at 09:00 Ondansetron HCl (Zofran Tab) 4 mg Q6H PRN GTB NAUSEA AND/OR VOMITING; Start at 07:00 Sodium Biphosphate/ Sodium Phosphate (Fleet Enema Pediatric) 66.6 ml Q3D PRN [place] CONSTIPATION; Start 07/21/17 at 07:00 Spironolactone (Aldactone) 25 mg BID GTB Last administered on 07/24/17 08:37 ; Admin Dose 25 MG; Start 07/21/17 at 09:00 Lansoprazole 30 mg 30 mg BID@06,18 GTB Last administered on 07/24/17 05:22; Admin Dose 30 MG; Start 07/21/17 at 09:15 Meropenem/Sodium Chloride (Merrem 500mg/50 ml(Pmx)) 50 ml @ 200 mls/hr Q8 IVPB Last administered on 07/24/17 05:22; Admin Dose 200 MLS/HR; Start 07/23/17 at 14:00 Acetaminophen (Tylenol Liquid) 650 mg Q6H GTB Last administered on 07/24/17 11:30; Admin Dose 650 MG; Start 07/23/17 at 17:30 Apixaban (Eliquis) 2.5 mg BID PO ; Start 07/24/17 at 21:00 Amantadine HCl (Symmetrel) 100 mg BID GTB ; Start 07/24/17 at 21:00 Assessment/Plan Chief Complaint/Hosp Course SUBJECTIVE: Tx to tele, awake, looks comfortable and afebrile. MICROBIOLOGY: Kleb ESBL/GNR. ANTIMICROBIALS: Merrem. DIAGNOSTICS: Chest x-ray revealed right upper lobe pneumonia, pulmonary edema. INDWELLINGS: Trach, PEG, Lazar. PHYSICAL EXAMINATION: GENERAL: Fragile, elderly woman who is awake, in no distress. HEENT: Head atraumatic, normocephalic. Sclerae anicteric. Buccal mucosa dry. NECK: Supple. CHEST: Rise symmetrical. Breath sounds diminished to bases. HEART: S1, S2. ABDOMEN: Soft, bowel tones present. EXTREMITIES: No cyanosis. ASSESSMENT: 1. Urinary tract infection. 2. Healthcare-associated pneumonia. 3. Acute anemia on admission, hemoglobin and hematocrit stable. 4. Chronic respiratory failure. 5. Acute kidney injury on top of chronic kidney disease. PLAN: The patient remains stable, continue abx, vent per pulmonary DW staff Problems: NIKOLAS WATTS NP Jul 24, 2017 14:26
--- NOTE | 2017-07-24 18:56 | CONS ---
Date/Time of Note Date/Time of Note DATE: 07/24/17 TIME: 18:55 Assessment/Plan Assessment/Plan Additional Assessment/Plan Chief Complaint/Hosp Course Impression: 1. Anemia: r/o GIB. My ALBERTO do not show melena or hematochezia 2. Atrial fibrillation with RVR 3. dysphagia s/p trach 4. CVA 5. Diarrhea Recommendations: 1. monitor h/h and transfuse PRN hgb less than 7 2. f/u stool for occult blood. If positive, consider EGD. Patient had a colonoscopy last month which was grossly negative except for the hemorrhoids 3. increased PPI to bid dosing 4. cardiac eval and would need cardiology clearance before any endoscopic procedure. 5. Stool for C. difficile toxin 5. Hematocrit is stable at this point Consultation Date/Type/Reason Admit Date/Time Jul 20, 2017 at 20:47 Initial Consult Date 07/21/17 Type of Consultation: ID 24 HR Interval Summary Free Text/Dictation As per the staff patient has significant diarrhea. Stool is greenish in color Exam/Review of Systems Vital Signs Vitals Vital Signs Date Time Temp Pulse Resp B/P Pulse Ox O2 Delivery O2 Flow Rate FiO2 07/24/17 18:00 98.1 79 19 134/83 98 Mechanical Ventilator 07/24/17 12:16 55 Intake and Output 07/23/17 07/23/17 07/24/17 15:00 23:00 07:00 Intake Total 600 ml 600 ml Output Total 500 ml 1400 ml Balance 100 ml -800 ml Exam Constitutional: alert, oriented, well developed Psych: nl mood/affect, no complaints Head: atraumatic, normocephalic Eyes: EOMI, PERRL, nl conjunctiva, nl lids, nl sclera ENMT: nl external ears & nose, nl lips & teeth, nl nasal mucosa & septum Neck: non-tender, supple Respiratory: clear to auscultation, normal air movement Cardiovascular: nl pulses, regular rate and rhythm Gastrointestinal: nl liver, spleen, non-tender, soft Musculoskeletal: nl extremities to inspection, nl gait and stance Extremities: normal pulses Neurological: 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, nl mental status, nl speech, nl strength Skin: nl turgor, No rash or lesions Lymph: nl lymph nodes Results Result Diagram: 07/24/17 0609 07/24/17 0609 Results 24 hrs Laboratory Tests Test 07/24/17 06:09 White Blood Count 7.7 # Red Blood Count 3.77 L Hemoglobin 11.2 L Hematocrit 36.1 L Mean Corpuscular Volume 95.8 Mean Corpuscular Hemoglobin 29.7 Mean Corpuscular Hemoglobin Concent 31.0 L Red Cell Distribution Width 15.8 H Platelet Count 177 Mean Platelet Volume 11.3 H Neutrophils % 79.3 H Lymphocytes % 8.5 L Monocytes % 5.9 Eosinophils % 4.9 Basophils % 0.8 Nucleated Red Blood Cells % 1.3 H Neutrophils # 6.1 Lymphocytes # 0.7 L Monocytes # 0.5 Eosinophils # 0.4 Basophils # 0.1 Nucleated Red Blood Cells # 0.1 H Sodium Level 148 H Potassium Level 3.2 L Chloride Level 107 Carbon Dioxide Level 31 Anion Gap 13 Blood Urea Nitrogen 47 #H Creatinine 0.85 Glucose Level 124 Calcium Level 9.5 Medications Medications Current Medications Diltiazem HCl (Cardizem) 60 mg Q6 GTB Last administered on 07/24/17 17:31; Admin Dose 60 MG; Start 07/21/17 at 12:00 Bisacodyl (Dulcolax Supp) 10 mg Q2D [place] Last administered on 07/23/17 09:10; Admin Dose 10 MG; Start 07/21/17 at 09:00 Calcium Carbonate (Oyster Shell Calcium) 1.25 gm BID GTB Last administered on 07/24/17 08:37; Admin Dose 1.25 GM; Start 07/21/17 at 09:00 Chlorhexidine Gluconate (Peridex) 15 ml Q12 MM Last administered on 07/24/17 08:37; Admin Dose 15 ML; Start 07/21/17 at 09:00 Digoxin (Digoxin) 0.125 mg Q2D@13 GTB Last administered on 07/23/17 13:56; Admin Dose 0.125 MG; Start 07/21/17 at 13:00 Losartan Potassium (Cozaar) 100 mg DAILY GTB Last administered on 07/24/17 08 :37; Admin Dose 100 MG; Start 07/21/17 at 09:00 Magnesium Hydroxide (Milk Of Mag) 30 ml DAILY GTB Last administered on 08:37; Admin Dose 30 ML; Start 07/21/17 at 09:00 Metoprolol Tartrate (Lopressor) 50 mg BID GTB Last administered on 07/24/17 08:38; Admin Dose 50 MG; Start 07/21/17 at 09:00 Ondansetron HCl (Zofran Tab) 4 mg Q6H PRN GTB NAUSEA AND/OR VOMITING; Start at 07:00 Sodium Biphosphate/ Sodium Phosphate (Fleet Enema Pediatric) 66.6 ml Q3D PRN [place] CONSTIPATION; Start 07/21/17 at 07:00 Spironolactone (Aldactone) 25 mg BID GTB Last administered on 07/24/17 08:37 ; Admin Dose 25 MG; Start 07/21/17 at 09:00 Lansoprazole 30 mg 30 mg BID@06,18 GTB Last administered on 07/24/17 17:32; Admin Dose 30 MG; Start 07/21/17 at 09:15 Meropenem/Sodium Chloride (Merrem 500mg/50 ml(Pmx)) 50 ml @ 200 mls/hr Q8 IVPB Last administered on 07/24/17 15:39; Admin Dose 200 MLS/HR; Start 07/23/17 at 14:00 Acetaminophen (Tylenol Liquid) 650 mg Q6H GTB Last administered on 07/24/17 17:31; Admin Dose 650 MG; Start 07/23/17 at 17:30 Apixaban (Eliquis) 2.5 mg BID PO ; Start 07/24/17 at 21:00 Amantadine HCl (Symmetrel) 100 mg BID GTB ; Start 07/24/17 at 21:00 MARY PAYNE MD Jul 24, 2017 18:56
[2017-07-24] MEDS: APIXABAN 5 MG TABLET PO SCH (22:01)
[2017-07-24] MEDS: AMANTADINE 100 MG/10 ML POSYR GTB SCH (23:44)
[2017-07-25] VITALS (34 sets, daily range): BP systolic 134–173; BP diastolic 60–90; PULSE 64–94; RESP 14–24
[2017-07-25] MEDS: ACETAMINOPHEN 650MG/20.3ML CUP GTB SCH ×3 (05:18→17:03)
[2017-07-25] MEDS: DILTIAZEM 60 MG TAB GTB SCH ×4 (05:19→22:14)
[2017-07-25] MEDS: MEROPENEM 500MG/50 ML (PMX) 50 ML IVPB SCH ×3 (05:19→22:16)
[2017-07-25] MEDS: FUROSEMIDE 40 MG TAB GTB SCH (05:19)
[2017-07-25] MEDS: LANSOPRAZOLE 30 MG CAP GTB SCH ×2 (05:19→17:04)
[2017-07-25] MEDS: LEVOTHYROXINE 125 MCG TAB GTB SCH (05:20)
[2017-07-25] MEDS ORDERED: POTASSIUM CHLORIDE 20 MEQ POWDER FOR ORAL SOLN GTB ONE (08:00)
--- NOTE | 2017-07-25 08:46 | CONS ---
Date/Time of Note Date/Time of Note DATE: 07/25/17 TIME: 08:44 Consult Date/Type/Reason Admit Date/Time Jul 20, 2017 at 20:47 Initial Consult Date 07/21/17 Type of Consultation: cardiology Subjective CARDIOLOGY FOLLOW UP NOTE: S: D/W staff and rhythm was reviewed. pt remains in AFIB. HR has been stable. . pt remains s/p trach on vent. pt remains nonverbal. O: General: s/p trach on vent. HEENT: NC/AT. pupils are equal. round. NECK: s/p trach. . no stridor. CV: irregularly irregular. . systolic murmur; no gallop or rubs. PULM: no wheezing or rhonchi. GI: SOFT, NT, ND, no rebound or guarding . s/p PEG Extremity: trace B/L LE edema. no clubbing. neuro: opens her eye. does not answer questions. Psych: calm and pleasant rectal: deferred Objective Vital Signs Date Time Temp Pulse Resp B/P Pulse Ox O2 Delivery O2 Flow Rate FiO2 07/25/17 07:46 99.1 78 18 139/90 96 07/25/17 07:35 75 07/25/17 06:00 Mechanical Ventilator Intake and Output 07/24/17 07/24/17 07/25/17 15:00 23:00 07:00 Intake Total 590 ml 700 ml Output Total 100 ml 400 ml Balance 490 ml 300 ml Results/Medications Result Diagram: 07/25/17 0605 07/25/17 0605 Results 24 hrs Laboratory Tests Test 07/25/17 06:05 07/25/17 07:20 White Blood Count 7.3 Red Blood Count 3.71 L Hemoglobin 11.2 L Hematocrit 36.1 L Mean Corpuscular Volume 97.3 Mean Corpuscular Hemoglobin 30.2 Mean Corpuscular Hemoglobin Concent 31.0 L Red Cell Distribution Width 15.9 H Platelet Count 176 Mean Platelet Volume 11.0 H Neutrophils % 76.8 Lymphocytes % 12.3 L Monocytes % 4.8 Eosinophils % 5.1 Basophils % 0.6 Nucleated Red Blood Cells % 0.6 H Neutrophils # 5.6 Lymphocytes # 0.9 Monocytes # 0.4 Eosinophils # 0.4 Basophils # 0.0 Nucleated Red Blood Cells # 0.0 Sodium Level 155 H Potassium Level 3.5 Chloride Level 112 H Carbon Dioxide Level 30 Anion Gap 17 H Blood Urea Nitrogen 34 #H Creatinine 0.80 Glucose Level 120 Calcium Level 9.3 Phosphorus Level 2.6 Magnesium Level 2.2 Total Bilirubin 0.5 Direct Bilirubin 0.00 Indirect Bilirubin 0.5 Aspartate Amino Transf (AST/SGOT) 32 Alanine Aminotransferase (ALT/SGPT) 61 Alkaline Phosphatase 126 H Total Protein 7.9 Albumin 3.7 Globulin 4.20 H Albumin/Globulin Ratio 0.88 Blood Gas Specimen Source Blood arterial Arterial Blood Date Drawn 07/25/2017 8:10:46 AM Arterial Blood pH (Temp corrected) 7.475 H Arterial Blood pCO2 (Temp correct) 39.6 Arterial Blood pO2 (Temp corrected) 73.8 L Arterial Blood HCO3 28.5 H Arterial Blood Base Excess 4.6 H Arterial Blood Oxygen Saturation 94.4 L Brant Test ACCEPTAB Arterial Blood Gas Puncture Site Right Radial Arterial Blood Carboxyhemoglobin 0.3 Arterial Blood Methemoglobin 0.2 Blood Gas A-a O2 Differential 418.9 H Oxyhemoglobin Percent 93.9 Total Hemoglobin 13.1 Blood Gas Temperature 37.0 Blood Gas Respiration Rate 10.0 Blood Gas Actual Respiration Rate 15 Blood Gas Modality VENT - AC FiO2 75.0 Blood Gas Tidal Volume 450.0 Blood Gas Low PEEP Setting 5.0 Blood Gas Notified Whom JLD Blood Gas Notified Time 07/25/2017 8:20:43 AM Medications Current Medications Diltiazem HCl (Cardizem) 60 mg Q6 GTB Last administered on 07/25/17 05:19; Admin Dose 60 MG; Start 07/21/17 at 12:00 Bisacodyl (Dulcolax Supp) 10 mg Q2D [place] Last administered on 07/23/17 09:10; Admin Dose 10 MG; Start 07/21/17 at 09:00 Calcium Carbonate (Oyster Shell Calcium) 1.25 gm BID GTB Last administered on 07/24/17 22:01; Admin Dose 1.25 GM; Start 07/21/17 at 09:00 Chlorhexidine Gluconate (Peridex) 15 ml Q12 MM Last administered on 07/24/17 22:02; Admin Dose 15 ML; Start 07/21/17 at 09:00 Digoxin (Digoxin) 0.125 mg Q2D@13 GTB Last administered on 07/23/17 13:56; Admin Dose 0.125 MG; Start 07/21/17 at 13:00 Losartan Potassium (Cozaar) 100 mg DAILY GTB Last administered on 07/24/17 08 :37; Admin Dose 100 MG; Start 07/21/17 at 09:00 Magnesium Hydroxide (Milk Of Mag) 30 ml DAILY GTB Last administered on 08:37; Admin Dose 30 ML; Start 07/21/17 at 09:00 Metoprolol Tartrate (Lopressor) 50 mg BID GTB Last administered on 07/24/17 22:02; Admin Dose 50 MG; Start 07/21/17 at 09:00 Ondansetron HCl (Zofran Tab) 4 mg Q6H PRN GTB NAUSEA AND/OR VOMITING; Start at 07:00 Sodium Biphosphate/ Sodium Phosphate (Fleet Enema Pediatric) 66.6 ml Q3D PRN [place] CONSTIPATION; Start 07/21/17 at 07:00 Spironolactone (Aldactone) 25 mg BID GTB Last administered on 07/24/17 22:02 ; Admin Dose 25 MG; Start 07/21/17 at 09:00 Lansoprazole 30 mg 30 mg BID@06,18 GTB Last administered on 07/25/17 05:19; Admin Dose 30 MG; Start 07/21/17 at 09:15 Meropenem/Sodium Chloride (Merrem 500mg/50 ml(Pmx)) 50 ml @ 200 mls/hr Q8 IVPB Last administered on 07/25/17 05:19; Admin Dose 200 MLS/HR; Start 07/23/17 at 14:00 Acetaminophen (Tylenol Liquid) 650 mg Q6H GTB Last administered on 07/25/17 05:18; Admin Dose 650 MG; Start 07/23/17 at 17:30 Apixaban (Eliquis) 2.5 mg BID PO Last administered on 07/24/17 22:01; Admin Dose 2.5 MG; Start 07/24/17 at 21:00 Amantadine HCl 100 mg 100 mg BID GTB Last administered on 07/24/17 23:44; Admin Dose 100 MG; Start 07/24/17 at 21:00 Dextrose (D5W) 1,000 ml @ 50 mls/hr Q20H IV ; Start 07/25/17 at 08:00 Assessment/Plan Chief Complaint/Hosp Course 1. anemia: ? Gastrointestinal bleed. stable now. - Follow-up with GI rec. 2. Afib: ON HR control cont betablocker and cardizem. dig back on eliquis now 4. Ventilator dependent respiratory failure. cont resp care. f/u with pulm 5. Dysphagia status post PEG. 6. HTN: cont betablocker, hydralazine cardizem cont aldactone lasix 7. Congestive heart failure/. fluid overload cont ARB cont LASIX 8. 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 Continue to monitor. 9. History of cerebrovascular accident. Continue medical management. 10. hypo K: will replace prn Thank you LETICIA MCWILLIAMS MD [facility] Problems: LETICIA MCWILLIAMS MD Jul 25, 2017 08:45
--- NOTE | 2017-07-25 08:57 | PN ---
DATE: 07/25/2017 SUBJECTIVE: Overnight the patient's FIO2 increased to 75%. There was no obvious secretions or sign s of visible distress, but patient was noted to be desaturating. No other acute events noted. Over night patient did have some diarrhea. OBJECTIVE: VITAL SIGNS: Blood pressure is 139/90, respiration 18, pulse 78, temperature 99.1. HEENT: Head is normocephalic. NECK: Supple. HEART: Regular rate. LUNGS: Show diminished breath sounds at the base. ABDOMEN: Soft, nontender to palpation without rebound or guarding. EXTREMITIES: Negative for clubbing, cyanosis, no edema. DERMATOLOGIC: No rashes. MUSCULOSKELETAL: No joint effusions. NEUROLOGIC: No change in exam. MEDICATIONS: The patient's medications have been reviewed. LABORATORY DATA: Shows white count 7.3, hemoglobin 9.2, platelet count is 176. Sodium 155, potassi um 3.5, BUN 34, creatinine 0.80. ASSESSMENT AND PLAN: 1. Severe anemia. Etiology is unclear. The patient is status post blood transfusion. Hemoglobin levels have been stable. Continue proton pump inhibitor. No plan for endoscopy. 2. Ventilator dependent respiratory failure. Patient's FIO2 levels have been increasing, etiology is unclear. Will check a chest x-ray, ABG. We will follow up with pulmonary. 3. Dysphagia, status post percutaneous endoscopic gastrostomy. Continue tube feeding. 4. Hypernatremia. The patient's free water deficit is approximately 2.5 liters. Will give the pat ient D5 water at 75 mL an hour for 2 liters, continue free water flushes. 5. Nonoliguric acute kidney injury on top of chronic kidney disease, etiology secondary to hemodyna mics. Continue current treatment plan, supportive care, renally dose all meds. 6. Mineral bone disorder. Monitor calcium and phosphorus levels. 7. Hyperkalemia. Continue to monitor and replete. 8. 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 Continue to monitor. 9. Acute on chronic congestive heart failure exacerbation, systolic and diastolic. Continue diuret ic therapy. 10. Urinary tract infection. Continue current antibiotic regimen. 11. Atrial fibrillation, rate controlled. Continue medical management. 12. Hypothyroidism. Continue Synthroid. 13. Hypertension. Continue current blood pressure regimen. 14. Deep venous thrombosis prophylaxis. DISPOSITION: The patient is pending transfer back to long term facility once more clinically stable and FIO2 levels have improved. Dictated By: NIRMALA RODRIGUEZ/TONIO Conf#: [id number] DID#: [id number]
[2017-07-25] MEDS: BISACODYL 10 MG SUPP PR SCH (09:00)
[2017-07-25] MEDS: CALCIUM CARBONATE 1.25 GM TAB GTB SCH ×2 (09:00→22:13)
[2017-07-25] MEDS: MAGNESIUM HYDROXIDE 30ML CUP GTB SCH (09:00)
[2017-07-25] MEDS: CHLORHEXIDINE GLUCONATE 15 ML UD CUP MM SCH ×2 (09:25→22:13)
[2017-07-25] MEDS: SPIRONOLACTONE 25 MG TAB GTB SCH ×2 (09:25→22:13)
[2017-07-25] MEDS: AMANTADINE 100 MG/10 ML POSYR GTB SCH ×2 (09:25→21:00)
[2017-07-25] MEDS: LOSARTAN 50 MG TAB GTB SCH (09:26)
[2017-07-25] MEDS: METOPROLOL 50 MG TAB GTB SCH ×2 (09:26→22:14)
[2017-07-25] MEDS: APIXABAN 5 MG TABLET PO SCH ×2 (09:26→22:13)
[2017-07-25] MEDS: DEXTROSE 5% 1,000 ML IV SCH (09:33)
--- NOTE | 2017-07-25 10:27 | RADRPT ---
PROCEDURE: XR Chest 1 view. CLINICAL INDICATION: Shortness of breath. TECHNIQUE: AP views of the chest were obtained. COMPARISON: July 22, 2017 FINDINGS: The heart is large. Calcified atherosclerosis is noted in the aorta. Tracheostomy tube is stable an d appears in grossly appropriate location. Central pulmonary vascular congestion and interstitial pr ominence is seen in both lungs. Patchy infiltrates throughout the right lung have increased. Retroca rdiac opacity has developed. Small left pleural effusion may be present. Osseous structures are int act. IMPRESSION: Cardiomegaly with calcified atherosclerosis in the aorta. Central pulmonary vascular congestion and interstitial prominence in both lungs. Interval increase in patchy infiltrates throughout the right lung. Interval development of retrocardiac opacity that may reflect left lower lobe atelectasis or infiltr ate combined with small pleural effusion. RPTAT: AA .Mukund Guzman MD, MD Date Time Electronically viewed and signed by .Mukund Guzman MD, MD on 07/25/2017 10:26 .P/
--- NOTE | 2017-07-25 10:53 | CONS ---
Date/Time of Note Date/Time of Note DATE: 07/25/17 TIME: 10:53 Assessment/Plan Assessment/Plan Additional Assessment/Plan Chief Complaint/Hosp Course Impression: 1. Anemia: r/o GIB. My ALBERTO do not show melena or hematochezia 2. Atrial fibrillation with RVR 3. dysphagia s/p trach 4. CVA 5. Diarrhea Recommendations: 1. monitor h/h and transfuse PRN hgb less than 7 2. f/u stool for occult blood. If positive, consider EGD. Patient had a colonoscopy last month which was grossly negative except for the hemorrhoids 3. increased PPI to bid dosing 4. cardiac eval and would need cardiology clearance before any endoscopic procedure. 5. Stool for C. difficile toxin, if negative then patient can be discharged from GI point 5. Hematocrit is stable at this point Consultation Date/Type/Reason Admit Date/Time Jul 20, 2017 at 20:47 Initial Consult Date 07/21/17 Type of Consultation: cardiology 24 HR Interval Summary Constitutional: improved Exam/Review of Systems Vital Signs Vitals Vital Signs Date Time Temp Pulse Resp B/P Pulse Ox O2 Delivery O2 Flow Rate FiO2 07/25/17 09:15 75 19 96 75 07/25/17 07:46 99.1 139/90 07/25/17 06:00 Mechanical Ventilator Intake and Output 07/24/17 07/24/17 07/25/17 15:00 23:00 07:00 Intake Total 590 ml 700 ml Output Total 100 ml 400 ml Balance 490 ml 300 ml Exam Constitutional: alert, oriented, well developed Psych: nl mood/affect, no complaints Head: atraumatic, normocephalic Eyes: EOMI, PERRL, nl conjunctiva, nl lids, nl sclera ENMT: nl external ears & nose, nl lips & teeth, nl nasal mucosa & septum Neck: non-tender, supple Respiratory: clear to auscultation, normal air movement Cardiovascular: nl pulses, regular rate and rhythm Gastrointestinal: nl liver, spleen, non-tender, soft Musculoskeletal: nl extremities to inspection, nl gait and stance Extremities: normal pulses Neurological: 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 II-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 intact, nl mental status, nl speech, nl strength Skin: nl turgor, No rash or lesions Lymph: nl lymph nodes Results Result Diagram: 07/25/1760407/25/17604 Results 24 hrs Laboratory Tests Test 07/25/17 06:05 07/25/17 07:20 White Blood Count 7.3 Red Blood Count 3.71 L Hemoglobin 11.2 L Hematocrit 36.1 L Mean Corpuscular Volume 97.3 Mean Corpuscular Hemoglobin 30.2 Mean Corpuscular Hemoglobin Concent 31.0 L Red Cell Distribution Width 15.9 H Platelet Count 176 Mean Platelet Volume 11.0 H Neutrophils % 76.8 Lymphocytes % 12.3 L Monocytes % 4.8 Eosinophils % 5.1 Basophils % 0.6 Nucleated Red Blood Cells % 0.6 H Neutrophils # 5.6 Lymphocytes # 0.9 Monocytes # 0.4 Eosinophils # 0.4 Basophils # 0.0 Nucleated Red Blood Cells # 0.0 Sodium Level 155 H Potassium Level 3.5 Chloride Level 112 H Carbon Dioxide Level 30 Anion Gap 17 H Blood Urea Nitrogen 34 #H Creatinine 0.80 Glucose Level 120 Calcium Level 9.3 Phosphorus Level 2.6 Magnesium Level 2.2 Total Bilirubin 0.5 Direct Bilirubin 0.00 Indirect Bilirubin 0.5 Aspartate Amino Transf (AST/SGOT) 32 Alanine Aminotransferase (ALT/SGPT) 61 Alkaline Phosphatase 126 H Total Protein 7.9 Albumin 3.7 Globulin 4.20 H Albumin/Globulin Ratio 0.88 Blood Gas Specimen Source Blood arterial Arterial Blood Date Drawn 07/25/2017 8:10:46 AM Arterial Blood pH (Temp corrected) 7.475 H Arterial Blood pCO2 (Temp correct) 39.6 Arterial Blood pO2 (Temp corrected) 73.8 L Arterial Blood HCO3 28.5 H Arterial Blood Base Excess 4.6 H Arterial Blood Oxygen Saturation 94.4 L Brant Test ACCEPTAB Arterial Blood Gas Puncture Site Right Radial Arterial Blood Carboxyhemoglobin 0.3 Arterial Blood Methemoglobin 0.2 Blood Gas A-a O2 Differential 418.9 H Oxyhemoglobin Percent 93.9 Total Hemoglobin 13.1 Blood Gas Temperature 37.0 Blood Gas Respiration Rate 10.0 Blood Gas Actual Respiration Rate 15 Blood Gas Modality VENT - AC FiO2 75.0 Blood Gas Tidal Volume 450.0 Blood Gas Low PEEP Setting 5.0 Blood Gas Notified Whom JLD Blood Gas Notified Time 07/25/2017 8:20:43 AM Medications Medications Current Medications Diltiazem HCl (Cardizem) 60 mg Q6 GTB Last administered on 07/25/17t 05:19; Admin Dose 60 MG; Start 07/21/17 at 12:00 Bisacodyl (Dulcolax Supp) 10 mg Q2D [place] Last administered on 07/23/17 09:10; Admin Dose 10 MG; Start 07/21/17 at 09:00 Calcium Carbonate (Oyster Shell Calcium) 1.25 gm BID GTB Last administered on 07/24/17 22:01; Admin Dose 1.25 GM; Start 07/21/17 at 09:00 Chlorhexidine Gluconate (Peridex) 15 ml Q12 MM Last administered on 07/25/17 09:25; Admin Dose 15 ML; Start 07/21/17 at 09:00 Digoxin (Digoxin) 0.125 mg Q2D@13 GTB Last administered on 07/23/17 13:56; Admin Dose 0.125 MG; Start 07/21/17 at 13:00 Losartan Potassium (Cozaar) 100 mg DAILY GTB Last administered on 07/25/17 09 :26; Admin Dose 100 MG; Start 07/21/17 at 09:00 Magnesium Hydroxide (Milk Of Mag) 30 ml DAILY GTB Last administered on 08:37; Admin Dose 30 ML; Start 07/21/17 at 09:00 Metoprolol Tartrate (Lopressor) 50 mg BID GTB Last administered on 07/25/17 09:26; Admin Dose 50 MG; Start 07/21/17 at 09:00 Ondansetron HCl (Zofran Tab) 4 mg Q6H PRN GTB NAUSEA AND/OR VOMITING; Start at 07:00 Sodium Biphosphate/ Sodium Phosphate (Fleet Enema Pediatric) 66.6 ml Q3D PRN [place] CONSTIPATION; Start 07/21/17 at 07:00 Spironolactone (Aldactone) 25 mg BID GTB Last administered on 07/25/17 09:25 ; Admin Dose 25 MG; Start 07/21/17 at 09:00 Lansoprazole 30 mg 30 mg BID@06,18 GTB Last administered on 07/25/17 05:19; Admin Dose 30 MG; Start 07/21/17 at 09:15 Meropenem/Sodium Chloride (Merrem 500mg/50 ml(Pmx)) 50 ml @ 200 mls/hr Q8 IVPB Last administered on 07/25/17 05:19; Admin Dose 200 MLS/HR; Start 07/23/17 at 14:00 Acetaminophen (Tylenol Liquid) 650 mg Q6H GTB Last administered on 07/25/17 05:18; Admin Dose 650 MG; Start 07/23/17 at 17:30 Apixaban (Eliquis) 2.5 mg BID PO Last administered on 07/25/17 09:26; Admin Dose 2.5 MG; Start 07/24/17 at 21:00 Amantadine HCl 100 mg 100 mg BID GTB Last administered on 07/25/17 09:25; Admin Dose 100 MG; Start 07/24/17 at 21:00 Dextrose (D5W) 1,000 ml @ 50 mls/hr Q20H IV Last administered on 07/25/17 09 :33; Admin Dose 50 MLS/HR; Start 07/25/17 at 08:00 MARY PAYNE MD Jul 25, 2017 10:53
--- NOTE | 2017-07-25 12:08 | CONS ---
Date/Time of Note Date/Time of Note DATE: 07/25/17 TIME: 12:05 Assessment/Plan Assessment/Plan Additional Assessment/Plan Ventilator setting; AC of 12, tidal volume 400, PEEP of 5, 65% FiO2. Chest x-ray was reviewed from today which is showing bilateral pulmonary vascular congestion. Assessment and recommendations; 1. Patient admitted for severe UTI and sepsis with clinical improvement. 2. Chronic respiratory failure. 3. Chronic atrial fibrillation. 4. CHF. 5. Hypernatremia with mild increase in BUN. Continue current supportive care. Hold further Lasix dosing. Monitor serum sodium level. Wean down FiO2 to keep O2 saturation around 90-94%. Consider transfer to pulmonary rehab center. Overall prognosis is guarded. Consultation Date/Type/Reason Admit Date/Time Jul 20, 2017 at 20:47 Initial Consult Date 07/21/17 Type of Consultation: Pulmonary 24 HR Interval Summary Free Text/Dictation Patient's condition is stable. Remains completely awake and alert. Patient however requiring increasing FiO2 for O2 saturation. General exam; elderly woman, on ventilator via tracheostomy, awake, currently in no distress. Exam/Review of Systems Vital Signs Vitals Vital Signs Date Time Temp Pulse Resp B/P Pulse Ox O2 Delivery O2 Flow Rate FiO2 07/25/17 11:40 98.5 68 17 146/70 96 07/25/17 11:10 75 07/25/17 06:00 Mechanical Ventilator Intake and Output 07/24/17 07/24/17 07/25/17 15:00 23:00 07:00 Intake Total 590 ml 700 ml Output Total 100 ml 400 ml Balance 490 ml 300 ml Exam HEENT exam; supple neck, positive JVD. No adenopathy. Midline trachea. No thyromegaly. Tracheostomy in place. Pharynx is clear. Chest exam; diminished but clear breath sounds. S1-S2 audible, irregular rhythm. Abdomen exam; soft, protuberant. No organomegaly. Nontender. Bowel sounds audible. Extremity exam; trace edema. SEARCHLIGHT OPERATOR exam; no focal deficit. Results Result Diagram: 07/25/17 0607/25/17604 Results 24 hrs Laboratory Tests Test 07/25/17 06:05 07/25/17 07:20 White Blood Count 7.3 Red Blood Count 3.71 L Hemoglobin 11.2 L Hematocrit 36.1 L Mean Corpuscular Volume 97.3 Mean Corpuscular Hemoglobin 30.2 Mean Corpuscular Hemoglobin Concent 31.0 L Red Cell Distribution Width 15.9 H Platelet Count 176 Mean Platelet Volume 11.0 H Neutrophils % 76.8 Lymphocytes % 12.3 L Monocytes % 4.8 Eosinophils % 5.1 Basophils % 0.6 Nucleated Red Blood Cells % 0.6 H Neutrophils # 5.6 Lymphocytes # 0.9 Monocytes # 0.4 Eosinophils # 0.4 Basophils # 0.0 Nucleated Red Blood Cells # 0.0 Sodium Level 155 H Potassium Level 3.5 Chloride Level 112 H Carbon Dioxide Level 30 Anion Gap 17 H Blood Urea Nitrogen 34 #H Creatinine 0.80 Glucose Level 120 Calcium Level 9.3 Phosphorus Level 2.6 Magnesium Level 2.2 Total Bilirubin 0.5 Direct Bilirubin 0.00 Indirect Bilirubin 0.5 Aspartate Amino Transf (AST/SGOT) 32 Alanine Aminotransferase (ALT/SGPT) 61 Alkaline Phosphatase 126 H Total Protein 7.9 Albumin 3.7 Globulin 4.20 H Albumin/Globulin Ratio 0.88 Blood Gas Specimen Source Blood arterial Arterial Blood Date Drawn 07/25/2017 8:10:46 AM Arterial Blood pH (Temp corrected) 7.475 H Arterial Blood pCO2 (Temp correct) 39.6 Arterial Blood pO2 (Temp corrected) 73.8 L Arterial Blood HCO3 28.5 H Arterial Blood Base Excess 4.6 H Arterial Blood Oxygen Saturation 94.4 L Brant Test ACCEPTAB Arterial Blood Gas Puncture Site Right Radial Arterial Blood Carboxyhemoglobin 0.3 Arterial Blood Methemoglobin 0.2 Blood Gas A-a O2 Differential 418.9 H Oxyhemoglobin Percent 93.9 Total Hemoglobin 13.1 Blood Gas Temperature 37.0 Blood Gas Respiration Rate 10.0 Blood Gas Actual Respiration Rate 15 Blood Gas Modality VENT - AC FiO2 75.0 Blood Gas Tidal Volume 450.0 Blood Gas Low PEEP Setting 5.0 Blood Gas Notified Whom JLD Blood Gas Notified Time 07/25/2017 8:20:43 AM Medications Medications Current Medications Diltiazem HCl (Cardizem) 60 mg Q6 GTB Last administered on 07/25/17 05:19; Admin Dose 60 MG; Start 07/21/17 at 12:00 Bisacodyl (Dulcolax Supp) 10 mg Q2D [place] Last administered on 07/23/17 09:10; Admin Dose 10 MG; Start 07/21/17 at 09:00 Calcium Carbonate (Oyster Shell Calcium) 1.25 gm BID GTB Last administered on 07/24/17 22:01; Admin Dose 1.25 GM; Start 07/21/17 at 09:00 Chlorhexidine Gluconate (Peridex) 15 ml Q12 MM Last administered on 07/25/17 09:25; Admin Dose 15 ML; Start 07/21/17 at 09:00 Digoxin (Digoxin) 0.125 mg Q2D@13 GTB Last administered on 07/23/17 13:56; Admin Dose 0.125 MG; Start 07/21/17 at 13:00 Losartan Potassium (Cozaar) 100 mg DAILY GTB Last administered on 07/25/17 09 :26; Admin Dose 100 MG; Start 07/21/17 at 09:00 Magnesium Hydroxide (Milk Of Mag) 30 ml DAILY GTB Last administered on 08:37; Admin Dose 30 ML; Start 07/21/17 at 09:00 Metoprolol Tartrate (Lopressor) 50 mg BID GTB Last administered on 07/25/17 09:26; Admin Dose 50 MG; Start 07/21/17 at 09:00 Ondansetron HCl (Zofran Tab) 4 mg Q6H PRN GTB NAUSEA AND/OR VOMITING; Start at 07:00 Sodium Biphosphate/ Sodium Phosphate (Fleet Enema Pediatric) 66.6 ml Q3D PRN [place] CONSTIPATION; Start 07/21/17 at 07:00 Spironolactone (Aldactone) 25 mg BID GTB Last administered on 07/25/17 09:25 ; Admin Dose 25 MG; Start 07/21/17 at 09:00 Lansoprazole 30 mg 30 mg BID@06,18 GTB Last administered on 07/25/17 05:19; Admin Dose 30 MG; Start 07/21/17 at 09:15 Meropenem/Sodium Chloride (Merrem 500mg/50 ml(Pmx)) 50 ml @ 200 mls/hr Q8 IVPB Last administered on 07/25/17 05:19; Admin Dose 200 MLS/HR; Start 07/23/17 at 14:00 Acetaminophen (Tylenol Liquid) 650 mg Q6H GTB Last administered on 07/25/17 05:18; Admin Dose 650 MG; Start 07/23/17 at 17:30 Apixaban (Eliquis) 2.5 mg BID PO Last administered on 07/25/17 09:26; Admin Dose 2.5 MG; Start 07/24/17 at 21:00 Amantadine HCl 100 mg 100 mg BID GTB Last administered on 07/25/17 09:25; Admin Dose 100 MG; Start 07/24/17 at 21:00 Dextrose (D5W) 1,000 ml @ 50 mls/hr Q20H IV Last administered on 07/25/17 09 :33; Admin Dose 50 MLS/HR; Start 07/25/17 at 08:00 NICOLAS VASQUEZ Jul 25, 2017 12:08
[2017-07-25] MEDS: DIGOXIN 0.125 MG TAB GTB SCH (13:46)
--- NOTE | 2017-07-25 14:23 | CONS ---
Date/Time of Note Date/Time of Note DATE: 07/25/17 TIME: 14:22 Consult Date/Type/Reason Admit Date/Time Jul 20, 2017 at 20:47 Initial Consult Date 07/21/17 Type of Consultation: ID Objective Vital Signs Date Time Temp Pulse Resp B/P Pulse Ox O2 Delivery O2 Flow Rate FiO2 07/25/17 13:15 73 24 97 75 07/25/17 11:40 98.5 146/70 07/25/17 06:00 Mechanical Ventilator Intake and Output 07/24/17 07/24/17 07/25/17 15:00 23:00 07:00 Intake Total 590 ml 700 ml Output Total 100 ml 400 ml Balance 490 ml 300 ml Results/Medications Result Diagram: 07/25/1760407/25/17604 Results 24 hrs Laboratory Tests Test 07/25/17 06:05 07/25/17 07:20 White Blood Count 7.3 Red Blood Count 3.71 L Hemoglobin 11.2 L Hematocrit 36.1 L Mean Corpuscular Volume 97.3 Mean Corpuscular Hemoglobin 30.2 Mean Corpuscular Hemoglobin Concent 31.0 L Red Cell Distribution Width 15.9 H Platelet Count 176 Mean Platelet Volume 11.0 H Neutrophils % 76.8 Lymphocytes % 12.3 L Monocytes % 4.8 Eosinophils % 5.1 Basophils % 0.6 Nucleated Red Blood Cells % 0.6 H Neutrophils # 5.6 Lymphocytes # 0.9 Monocytes # 0.4 Eosinophils # 0.4 Basophils # 0.0 Nucleated Red Blood Cells # 0.0 Sodium Level 155 H Potassium Level 3.5 Chloride Level 112 H Carbon Dioxide Level 30 Anion Gap 17 H Blood Urea Nitrogen 34 #H Creatinine 0.80 Glucose Level 120 Calcium Level 9.3 Phosphorus Level 2.6 Magnesium Level 2.2 Total Bilirubin 0.5 Direct Bilirubin 0.00 Indirect Bilirubin 0.5 Aspartate Amino Transf (AST/SGOT) 32 Alanine Aminotransferase (ALT/SGPT) 61 Alkaline Phosphatase 126 H Total Protein 7.9 Albumin 3.7 Globulin 4.20 H Albumin/Globulin Ratio 0.88 Blood Gas Specimen Source Blood arterial Arterial Blood Date Drawn 07/25/2017 8:10:46 AM Arterial Blood pH (Temp corrected) 7.475 H Arterial Blood pCO2 (Temp correct) 39.6 Arterial Blood pO2 (Temp corrected) 73.8 L Arterial Blood HCO3 28.5 H Arterial Blood Base Excess 4.6 H Arterial Blood Oxygen Saturation 94.4 L Brant Test ACCEPTAB Arterial Blood Gas Puncture Site Right Radial Arterial Blood Carboxyhemoglobin 0.3 Arterial Blood Methemoglobin 0.2 Blood Gas A-a O2 Differential 418.9 H Oxyhemoglobin Percent 93.9 Total Hemoglobin 13.1 Blood Gas Temperature 37.0 Blood Gas Respiration Rate 10.0 Blood Gas Actual Respiration Rate 15 Blood Gas Modality VENT - AC FiO2 75.0 Blood Gas Tidal Volume 450.0 Blood Gas Low PEEP Setting 5.0 Blood Gas Notified Whom JLD Blood Gas Notified Time 07/25/2017 8:20:43 AM Medications Current Medications Diltiazem HCl (Cardizem) 60 mg Q6 GTB Last administered on 07/25/17 12:00; Admin Dose 60 MG; Start 07/21/17 at 12:00 Bisacodyl (Dulcolax Supp) 10 mg Q2D [place] Last administered on 07/23/17 09:10; Admin Dose 10 MG; Start 07/21/17 at 09:00 Calcium Carbonate (Oyster Shell Calcium) 1.25 gm BID GTB Last administered on 07/24/17 22:01; Admin Dose 1.25 GM; Start 07/21/17 at 09:00 Chlorhexidine Gluconate (Peridex) 15 ml Q12 MM Last administered on 07/25/17 09:25; Admin Dose 15 ML; Start 07/21/17 at 09:00 Digoxin (Digoxin) 0.125 mg Q2D@13 GTB Last administered on 07/25/17 13:46; Admin Dose 0.125 MG; Start 07/21/17 at 13:00 Losartan Potassium (Cozaar) 100 mg DAILY GTB Last administered on 07/25/17 09 :26; Admin Dose 100 MG; Start 07/21/17 at 09:00 Magnesium Hydroxide (Milk Of Mag) 30 ml DAILY GTB Last administered on 08:37; Admin Dose 30 ML; Start 07/21/17 at 09:00 Metoprolol Tartrate (Lopressor) 50 mg BID GTB Last administered on 07/25/17 09:26; Admin Dose 50 MG; Start 07/21/17 at 09:00 Ondansetron HCl (Zofran Tab) 4 mg Q6H PRN GTB NAUSEA AND/OR VOMITING; Start at 07:00 Sodium Biphosphate/ Sodium Phosphate (Fleet Enema Pediatric) 66.6 ml Q3D PRN [place] CONSTIPATION; Start 07/21/17 at 07:00 Spironolactone (Aldactone) 25 mg BID GTB Last administered on 07/25/17 09:25 ; Admin Dose 25 MG; Start 07/21/17 at 09:00 Lansoprazole 30 mg 30 mg BID@06,18 GTB Last administered on 07/25/17 05:19; Admin Dose 30 MG; Start 07/21/17 at 09:15 Meropenem/Sodium Chloride (Merrem 500mg/50 ml(Pmx)) 50 ml @ 200 mls/hr Q8 IVPB Last administered on 07/25/17 13:50; Admin Dose 200 MLS/HR; Start 07/23/17 at 14:00 Acetaminophen (Tylenol Liquid) 650 mg Q6H GTB Last administered on 07/25/17 11:30; Admin Dose 650 MG; Start 07/23/17 at 17:30 Apixaban (Eliquis) 2.5 mg BID PO Last administered on 07/25/17 09:26; Admin Dose 2.5 MG; Start 07/24/17 at 21:00 Amantadine HCl 100 mg 100 mg BID GTB Last administered on 07/25/17 09:25; Admin Dose 100 MG; Start 07/24/17 at 21:00 Dextrose (D5W) 1,000 ml @ 50 mls/hr Q20H IV Last administered on 07/25/17 09 :33; Admin Dose 50 MLS/HR; Start 07/25/17 at 08:00 Assessment/Plan Chief Complaint/Hosp Course SUBJECTIVE: Awake, looks comfortable and afebrile. MICROBIOLOGY: Urine culture growing Klebsiella ESBL, stool for C. difficile came back positive ANTIMICROBIALS: Merrem. DIAGNOSTICS: Chest x-ray revealed right upper lobe pneumonia, pulmonary edema. INDWELLINGS: Trach, PEG, Lazar. PHYSICAL EXAMINATION: GENERAL: Fragile, elderly woman who is awake, in no distress. HEENT: Head atraumatic, normocephalic. Sclerae anicteric. Buccal mucosa dry. NECK: Supple. CHEST: Rise symmetrical. Breath sounds diminished to bases. HEART: S1, S2. ABDOMEN: Soft, bowel tones present. EXTREMITIES: No cyanosis. ASSESSMENT: 1. Urinary tract infection. 2. Healthcare-associated pneumonia. 3. Acute anemia on admission, hemoglobin and hematocrit stable. 4. Chronic respiratory failure. 5. Acute on chronic kidney disease. 6. C. difficile colitis PLAN: The patient remains stable, will add Flagyl, continue abx, vent management per pulmonary DW staff Problems: NIKOLAS WATTS NP Jul 25, 2017 14:23
[2017-07-25] MEDS: metroNIDAZOLE 500 MG TAB NGT SCH ×2 (17:03→22:13)
[2017-07-26] VITALS (37 sets, daily range): BP systolic 130–180; BP diastolic 65–91; PULSE 60–112; RESP 14–25
[2017-07-26] MEDS: ACETAMINOPHEN 650MG/20.3ML CUP GTB SCH ×5 (00:02→23:45)
[2017-07-26] MEDS: MEROPENEM 500MG/50 ML (PMX) 50 ML IVPB SCH ×3 (06:20→21:31)
[2017-07-26] MEDS: DEXTROSE 5% 1,000 ML IV SCH (06:20)
[2017-07-26] MEDS: DILTIAZEM 60 MG TAB GTB SCH ×4 (06:21→23:47)
[2017-07-26] MEDS: LANSOPRAZOLE 30 MG CAP GTB SCH ×2 (06:21→18:15)
[2017-07-26] MEDS: metroNIDAZOLE 500 MG TAB NGT SCH ×3 (06:21→21:31)
[2017-07-26] MEDS: LEVOTHYROXINE 125 MCG TAB GTB SCH (06:23)
[2017-07-26] MEDS: MAGNESIUM HYDROXIDE 30ML CUP GTB SCH (09:00)
[2017-07-26] MEDS ORDERED: AMLODIPINE 5 MG TAB GTB SCH (09:00)
[2017-07-26] MEDS ORDERED: NEUTRA-PHOS 250 MG PACKET PO ONE (10:00)
[2017-07-26] MEDS: APIXABAN 5 MG TABLET PO SCH ×2 (10:12→21:31)
[2017-07-26] MEDS: SPIRONOLACTONE 25 MG TAB GTB SCH ×2 (10:12→21:31)
[2017-07-26] MEDS: CALCIUM CARBONATE 1.25 GM TAB GTB SCH ×2 (10:13→21:31)
[2017-07-26] MEDS: METOPROLOL 50 MG TAB GTB SCH ×2 (10:13→21:32)
[2017-07-26] MEDS: CHLORHEXIDINE GLUCONATE 15 ML UD CUP MM SCH ×2 (10:14→21:31)
[2017-07-26] MEDS: LOSARTAN 50 MG TAB GTB SCH (10:21)
[2017-07-26] MEDS: FUROSEMIDE 40 MG INJ IV SCH (10:25)
--- NOTE | 2017-07-26 10:45 | PN ---
DATE: 07/26/2017 SUBJECTIVE: The patient remains on FIO2 at 65%. No other acute events noted. No hemoptysis, hemat emesis or hematochezia. OBJECTIVE: VITAL SIGNS: Blood pressure 145/79, respiration 19, pulse 77, temperature 98.6. HEENT: Head is normocephalic. NECK: Supple. HEART: Regular rate. LUNGS: Show diminished breath sounds at the base. ABDOMEN: Soft, nontender to palpation, rebound or guarding. EXTREMITIES: Negative for clubbing, cyanosis, or edema. DERMATOLOGIC: No rashes. MUSCULOSKELETAL: No joint effusions. NEUROLOGIC: No change in exam. MEDICATIONS: The patient's medications have been reviewed. LABORATORY DATA: From 07/26/2017 is currently pending. ASSESSMENT AND PLAN: 1. Anemia. Etiology is unclear. The patient is status post blood transfusion. Hemoglobin level h as been stable. Continue to monitor. 2. Ventilator dependent respiratory failure. Etiology secondary to pneumonia, possible aspiration. The patient's FIO2 levels remain elevated, but slowly improving. Continue to monitor. Follow up with pulmonary. 3. Dysphagia, status post percutaneous endoscopic gastrostomy tube tube feeding. 4. Hypernatremia. The patient is status post D5 water and increase free water flushes will follow up sodium levels and monitor. 5. Nonoliguric acute kidney injury on top of chronic kidney disease. Etiology secondary to hemodyn amics. Continue current treatment plan, supportive care, renally dose all medicines. 6. Hypertension. Continue current blood pressure regimen. We will adjust medications as needed. 7. Mineral bone disorder. Monitor calcium and phosphorus levels. 8. Hyperkalemia, resolved. 9. 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 Continue to monitor. 10. Acute on chronic congestive heart failure exacerbation with systolic, diastolic. The patient i s being followed by cardiology. Continue medical management. 11. Urinary tract infection. Continue current antibiotic regimen. 12. Atrial fibrillation, rate controlled. Continue medical management. 13. Hypothyroidism, on Synthroid. 14. DVT and GI prophylaxis. DISPOSITION: A [facility] evaluation has been placed, awaiting approval and possible bed availability. Dictated By: NIRMALA TAVAREZ DO NR/NTS Conf#: [id number] DID#: [id number]
--- NOTE | 2017-07-26 11:37 | CONS ---
Date/Time of Note Date/Time of Note DATE: 07/26/17 TIME: 11:35 Assessment/Plan Assessment/Plan Additional Assessment/Plan Ventilator setting; AC of 14, tidal volume 450, PEEP of 5, 65% FiO2. Assessment and recommendations; 1. Patient admitted for bilateral pneumonia with interval improvement from yesterday's chest x-ray. 2. CHF. 3. Chronic respiratory failure. 4. Dementia. 5. UTI. Continue current supportive care. Consultation Date/Type/Reason Admit Date/Time Jul 20, 2017 at 20:47 Initial Consult Date 07/21/17 Type of Consultation: Pulmonary 24 HR Interval Summary Free Text/Dictation Patient's condition is stable. Remains awake but not interactive. Has remained hemodynamically stable. General exam; elderly woman, on ventilator via tracheostomy, awake but not interacting at all. In no distress. Exam/Review of Systems Vital Signs Vitals Vital Signs Date Time Temp Pulse Resp B/P Pulse Ox O2 Delivery O2 Flow Rate FiO2 07/26/17 09:25 122 24 97 65 07/26/17 08:10 99.7 161/91 07/26/17 06:00 Mechanical Ventilator Intake and Output 07/25/17 07/25/17 07/26/17 15:00 23:00 07:00 Intake Total 2160 ml Output Total 450 ml Balance 1710 ml Exam HEENT exam; supple neck, positive JVD. No lymphadenopathy. Midline trachea. No thyromegaly. Tracheostomy in place. Chest exam; diminished breath sounds bilaterally. S1-S2 audible, no murmurs. Abdomen exam; soft, nondistended. No organomegaly. G-tube in place. Bowel sounds audible. Extremity exam; no peripheral edema. RESIDENTIAL SALES REPRESENTATIVE exam; patient is awake but does not follow any commands. Results Result Diagram: 07/26/17 0708 07/26/17 0707 Results 24 hrs Laboratory Tests Test 07/26/17 07:07 07/26/17 07:08 Sodium Level 146 H Potassium Level 3.9 Chloride Level 109 Carbon Dioxide Level 30 Anion Gap 11 Blood Urea Nitrogen 24 H Creatinine 0.66 Glucose Level 121 Calcium Level 9.3 Phosphorus Level 2.3 L Magnesium Level 2.0 White Blood Count 9.4 # Red Blood Count 3.65 L Hemoglobin 10.9 L Hematocrit 36.0 L Mean Corpuscular Volume 98.6 Mean Corpuscular Hemoglobin 29.9 Mean Corpuscular Hemoglobin Concent 30.3 L Red Cell Distribution Width 16.6 H Platelet Count 173 Mean Platelet Volume 11.5 H Neutrophils % 78.0 H Lymphocytes % 12.0 L Monocytes % 4.3 Eosinophils % 4.9 Basophils % 0.4 Nucleated Red Blood Cells % 0.0 Neutrophils # 7.3 Lymphocytes # 1.1 Monocytes # 0.4 Eosinophils # 0.5 Basophils # 0.0 Nucleated Red Blood Cells # 0.0 Medications Medications Current Medications Diltiazem HCl (Cardizem) 60 mg Q6 GTB Last administered on 07/26/17 06:21; Admin Dose 60 MG; Start 07/21/17 at 12:00 Bisacodyl (Dulcolax Supp) 10 mg Q2D [place] Last administered on 07/23/17 09:10; Admin Dose 10 MG; Start 07/21/17 at 09:00 Calcium Carbonate (Oyster Shell Calcium) 1.25 gm BID GTB Last administered on 07/26/17 10:13; Admin Dose 1.25 GM; Start 07/21/17 at 09:00 Chlorhexidine Gluconate (Peridex) 15 ml Q12 MM Last administered on 07/26/17 10:14; Admin Dose 15 ML; Start 07/21/17 at 09:00 Digoxin (Digoxin) 0.125 mg Q2D@13 GTB Last administered on 07/25/17 13:46; Admin Dose 0.125 MG; Start 07/21/17 at 13:00 Losartan Potassium (Cozaar) 100 mg DAILY GTB Last administered on 07/26/17 10 :21; Admin Dose 100 MG; Start 07/21/17 at 09:00 Magnesium Hydroxide (Milk Of Mag) 30 ml DAILY GTB Last administered on 08:37; Admin Dose 30 ML; Start 07/21/17 at 09:00 Metoprolol Tartrate (Lopressor) 50 mg BID GTB Last administered on 07/26/17 10:13; Admin Dose 50 MG; Start 07/21/17 at 09:00 Ondansetron HCl (Zofran Tab) 4 mg Q6H PRN GTB NAUSEA AND/OR VOMITING; Start at 07:00 Sodium Biphosphate/ Sodium Phosphate (Fleet Enema Pediatric) 66.6 ml Q3D PRN [place] CONSTIPATION; Start 07/21/17 at 07:00 Spironolactone (Aldactone) 25 mg BID GTB Last administered on 07/26/17 10:12 ; Admin Dose 25 MG; Start 07/21/17 at 09:00 Lansoprazole 30 mg 30 mg BID@06,18 GTB Last administered on 07/26/17 06:21; Admin Dose 30 MG; Start 07/21/17 at 09:15 Meropenem/Sodium Chloride (Merrem 500mg/50 ml(Pmx)) 50 ml @ 200 mls/hr Q8 IVPB Last administered on 07/26/17 06:20; Admin Dose 200 MLS/HR; Start 07/23/17 at 14:00 Acetaminophen (Tylenol Liquid) 650 mg Q6H GTB Last administered on 07/26/17 06:21; Admin Dose 650 MG; Start 07/23/17 at 17:30 Apixaban (Eliquis) 2.5 mg BID PO Last administered on 07/26/17 10:12; Admin Dose 2.5 MG; Start 07/24/17 at 21:00 Amantadine HCl (Symmetrel) 100 mg BID GTB Last administered on 07/25/17 09:25 ; Admin Dose 100 MG; Start 07/24/17 at 21:00 Metronidazole (Flagyl) 500 mg Q8 NGT Last administered on 07/26/17 06:21; Admin Dose 500 MG; Start 07/25/17 at 14:30 Hydralazine HCl (Apresoline) 25 mg TID GTB Last administered on 07/26/17 10: 12; Admin Dose 25 MG; Start 07/26/17 at 09:00 Furosemide (Lasix) 40 mg DAILY IV Last administered on 07/26/17 10:25; Admin Dose 40 MG; Start 07/26/17 at 10:00 NICOLAS VASQUEZ Jul 26, 2017 11:37
--- NOTE | 2017-07-26 12:47 | PN ---
DATE: 07/26/2017 SUBJECTIVE: Patient is awake, looks comfortable. VITAL SIGNS: T-max today 99.7, T-current 98.2, pulse 90, respirations 25, blood pressure 162/84, sa turation 98% on vent. WBC 9.4, platelets 173, neutrophils 78, BUN 24, creatinine 0.66. INDWELLINGS: Trach, PEG, Lazar. ANTIMICROBIALS: The patient is on: 1. Meropenem. 2. Flagyl. PHYSICAL EXAMINATION: GENERAL: This is a well-developed, elderly woman who is awake, in no distress. HEENT: Head atraumatic, normocephalic. Sclerae anicteric. Buccal mucosa dry. NECK: Supple. CHEST: Rise symmetrical. Breath sounds diminished to bases. HEART: S1, S2. ABDOMEN: Soft. Bowel tones present. ASSESSMENT: 1. Resolving sepsis. 2. Healthcare-associated pneumonia. 3. Urinary tract infection. 4. Clostridium difficile colitis. 5. Chronic respiratory failure. 6. Acute on chronic kidney disease, nephrology follows. PLAN: The patient remains stable with radiographic improvement as per pulmonary. She is on appropr iate antimicrobials. Continue present care. Dictated By: NIKOLAS WATTS [employer] SALES AND LENDING TEAM MEMBER for [employer]/TONIO Conf#: [id number] DID#: [id number]
--- NOTE | 2017-07-26 12:47 | PN ---
DATE: 07/26/2017 SUBJECTIVE: Patient is awake, looks comfortable. VITAL SIGNS: T-max today 99.7, T-current 98.2, pulse 90, respirations 25, blood pressure 162/84, sa turation 98% on vent. WBC 9.4, platelets 173, neutrophils 78, BUN 24, creatinine 0.66. INDWELLINGS: Trach, PEG, Lazar. ANTIMICROBIALS: The patient is on: 1. Meropenem. 2. Flagyl. PHYSICAL EXAMINATION: GENERAL: This is a well-developed, elderly woman who is awake, in no distress. HEENT: Head atraumatic, normocephalic. Sclerae anicteric. Buccal mucosa dry. NECK: Supple. CHEST: Rise symmetrical. Breath sounds diminished to bases. HEART: S1, S2. ABDOMEN: Soft. Bowel tones present. ASSESSMENT: 1. Resolving sepsis. 2. Healthcare-associated pneumonia. 3. Urinary tract infection. 4. Clostridium difficile colitis. 5. Chronic respiratory failure. 6. Acute on chronic kidney disease, nephrology follows. PLAN: The patient remains stable with radiographic improvement as per pulmonary. She is on appropr iate antimicrobials. Continue present care. Dictated By: NIKOLAS WATTS PRODUCTION OPERATIONS INSPECTOR for [employer]OWERS/TONIO Conf#: [id number] DID#: [id number]
--- NOTE | 2017-07-26 12:47 | PN ---
DATE: 07/26/2017 SUBJECTIVE: Patient is awake, looks comfortable. VITAL SIGNS: T-max today 99.7, T-current 98.2, pulse 90, respirations 25, blood pressure 162/84, sa turation 98% on vent. WBC 9.4, platelets 173, neutrophils 78, BUN 24, creatinine 0.66. INDWELLINGS: Trach, PEG, Lazar. ANTIMICROBIALS: The patient is on: 1. Meropenem. 2. Flagyl. PHYSICAL EXAMINATION: GENERAL: This is a well-developed, elderly woman who is awake, in no distress. HEENT: Head atraumatic, normocephalic. Sclerae anicteric. Buccal mucosa dry. NECK: Supple. CHEST: Rise symmetrical. Breath sounds diminished to bases. HEART: S1, S2. ABDOMEN: Soft. Bowel tones present. ASSESSMENT: 1. Resolving sepsis. 2. Healthcare-associated pneumonia. 3. Urinary tract infection. 4. Clostridium difficile colitis. 5. Chronic respiratory failure. 6. Acute on chronic kidney disease, nephrology follows. PLAN: The patient remains stable with radiographic improvement as per pulmonary. She is on appropr iate antimicrobials. Continue present care. Dictated By: NIKOLAS WATTS WINDING RACK OPERATOR for [employer]OWERS/TONIO Conf#: [id number] DID#: [id number]
[2017-07-26] MEDS: AMANTADINE 100 MG/10 ML POSYR GTB SCH ×2 (13:00→21:31)
--- NOTE | 2017-07-26 15:32 | CONS ---
Date/Time of Note Date/Time of Note DATE: 07/26/17 TIME: 15:31 Consult Date/Type/Reason Admit Date/Time Jul 20, 2017 at 20:47 Initial Consult Date 07/21/17 Type of Consultation: cardiology Subjective CARDIOLOGY FOLLOW UP NOTE: S: D/W staff and rhythm was reviewed. pt remains in AFIB. HR has been mostly stable but intermittently up to 140. . pt remains s/p trach on vent. pt remains nonverbal. O: General: s/p trach on vent. HEENT: NC/AT. pupils are equal. round. NECK: s/p trach. . no stridor. CV: irregularly irregular. . systolic murmur; no gallop or rubs. PULM: no wheezing or rhonchi. GI: SOFT, NT, ND, no rebound or guarding . s/p PEG Extremity: trace B/L LE edema. no clubbing. neuro: opens her eye. does not answer questions. Psych: calm and pleasant rectal: deferred Objective Vital Signs Date Time Temp Pulse Resp B/P Pulse Ox O2 Delivery O2 Flow Rate FiO2 07/26/17 15:30 98.5 80 20 130/68 98 07/26/17 13:30 65 07/26/17 06:00 Mechanical Ventilator Intake and Output 07/25/17 07/25/17 07/26/17 15:00 23:00 07:00 Intake Total 2160 ml Output Total 450 ml Balance 1710 ml Results/Medications Result Diagram: 07/26/17 0708 07/26/17 0707 Results 24 hrs Laboratory Tests Test 07/26/17 07:07 07/26/17 07:08 Sodium Level 146 H Potassium Level 3.9 Chloride Level 109 Carbon Dioxide Level 30 Anion Gap 11 Blood Urea Nitrogen 24 H Creatinine 0.66 Glucose Level 121 Calcium Level 9.3 Phosphorus Level 2.3 L Magnesium Level 2.0 White Blood Count 9.4 # Red Blood Count 3.65 L Hemoglobin 10.9 L Hematocrit 36.0 L Mean Corpuscular Volume 98.6 Mean Corpuscular Hemoglobin 29.9 Mean Corpuscular Hemoglobin Concent 30.3 L Red Cell Distribution Width 16.6 H Platelet Count 173 Mean Platelet Volume 11.5 H Neutrophils % 78.0 H Lymphocytes % 12.0 L Monocytes % 4.3 Eosinophils % 4.9 Basophils % 0.4 Nucleated Red Blood Cells % 0.0 Neutrophils # 7.3 Lymphocytes # 1.1 Monocytes # 0.4 Eosinophils # 0.5 Basophils # 0.0 Nucleated Red Blood Cells # 0.0 Medications Current Medications Diltiazem HCl (Cardizem) 60 mg Q6 GTB Last administered on 07/26/17 13:05; Admin Dose 60 MG; Start 07/21/17 at 12:00 Bisacodyl (Dulcolax Supp) 10 mg Q2D [place] Last administered on 07/23/17 09:10; Admin Dose 10 MG; Start 07/21/17 at 09:00 Calcium Carbonate (Oyster Shell Calcium) 1.25 gm BID GTB Last administered on 07/26/17 10:13; Admin Dose 1.25 GM; Start 07/21/17 at 09:00 Chlorhexidine Gluconate (Peridex) 15 ml Q12 MM Last administered on 07/26/17 10:14; Admin Dose 15 ML; Start 07/21/17 at 09:00 Digoxin (Digoxin) 0.125 mg Q2D@13 GTB Last administered on 07/25/17 13:46; Admin Dose 0.125 MG; Start 07/21/17 at 13:00 Losartan Potassium (Cozaar) 100 mg DAILY GTB Last administered on 07/26/17 10 :21; Admin Dose 100 MG; Start 07/21/17 at 09:00 Magnesium Hydroxide (Milk Of Mag) 30 ml DAILY GTB Last administered on 08:37; Admin Dose 30 ML; Start 07/21/17 at 09:00 Metoprolol Tartrate (Lopressor) 50 mg BID GTB Last administered on 07/26/17 10:13; Admin Dose 50 MG; Start 07/21/17 at 09:00 Ondansetron HCl (Zofran Tab) 4 mg Q6H PRN GTB NAUSEA AND/OR VOMITING; Start at 07:00 Sodium Biphosphate/ Sodium Phosphate (Fleet Enema Pediatric) 66.6 ml Q3D PRN [place] CONSTIPATION; Start 07/21/17 at 07:00 Spironolactone (Aldactone) 25 mg BID GTB Last administered on 07/26/17 10:12 ; Admin Dose 25 MG; Start 07/21/17 at 09:00 Lansoprazole 30 mg 30 mg BID@06,18 GTB Last administered on 07/26/17 06:21; Admin Dose 30 MG; Start 07/21/17 at 09:15 Meropenem/Sodium Chloride (Merrem 500mg/50 ml(Pmx)) 50 ml @ 200 mls/hr Q8 IVPB Last administered on 07/26/17 13:04; Admin Dose 200 MLS/HR; Start 07/23/17 at 14:00 Acetaminophen (Tylenol Liquid) 650 mg Q6H GTB Last administered on 07/26/17 13:00; Admin Dose 650 MG; Start 07/23/17 at 17:30 Apixaban (Eliquis) 2.5 mg BID PO Last administered on 07/26/17 10:12; Admin Dose 2.5 MG; Start 07/24/17 at 21:00 Amantadine HCl (Symmetrel) 100 mg BID GTB Last administered on 07/26/17 13:00 ; Admin Dose 100 MG; Start 07/24/17 at 21:00 Metronidazole (Flagyl) 500 mg Q8 NGT Last administered on 07/26/17 13:05; Admin Dose 500 MG; Start 07/25/17 at 14:30 Hydralazine HCl (Apresoline) 25 mg TID GTB Last administered on 07/26/17 13: 01; Admin Dose 25 MG; Start 07/26/17 at 09:00 Furosemide (Lasix) 40 mg DAILY IV Last administered on 07/26/17 10:25; Admin Dose 40 MG; Start 07/26/17 at 10:00 Assessment/Plan Chief Complaint/Hosp Course 1. anemia: ? Gastrointestinal bleed. stable now. - Follow-up with GI rec. 2. Afib: ON HR control cont betablocker and cardizem. inc dig and will check level on saturday back on eliquis now 4. Ventilator dependent respiratory failure. cont resp care. f/u with pulm 5. Dysphagia status post PEG. 6. HTN: cont betablocker, hydralazine cardizem cont aldactone lasix 7. Congestive heart failure/. fluid overload cont ARB cont LASIX 8. 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 Continue to monitor. 9. History of cerebrovascular accident. Continue medical management. 10. hypo K: will replace prn Thank you LETICIA VAHDAT MD [facility] Problems: LETICIA MCWILLIAMS MD Jul 26, 2017 15:32
[2017-07-27] VITALS (33 sets, daily range): BP systolic 125–166; BP diastolic 58–85; PULSE 62–142; RESP 16–26
[2017-07-27] MEDS ORDERED: DIGOXIN 500 MCG INJ IV ONE (03:30)
[2017-07-27] MEDS ORDERED: FUROSEMIDE 40 MG INJ IV ONE (04:00)
[2017-07-27] MEDS ORDERED: LORAZEPAM 2 MG INJ IV PRN (04:00)
[2017-07-27] MEDS: ACETAMINOPHEN 650MG/20.3ML CUP GTB SCH ×4 (05:34→23:18)
[2017-07-27] MEDS: DILTIAZEM 60 MG TAB GTB SCH ×3 (05:35→17:49)
[2017-07-27] MEDS: metroNIDAZOLE 500 MG TAB NGT SCH ×3 (05:35→23:18)
[2017-07-27] MEDS: LANSOPRAZOLE 30 MG CAP GTB SCH ×2 (05:35→17:48)
[2017-07-27] MEDS: MEROPENEM 500MG/50 ML (PMX) 50 ML IVPB SCH ×3 (05:36→23:18)
[2017-07-27] MEDS: LEVOTHYROXINE 125 MCG TAB GTB SCH (05:46)
--- NOTE | 2017-07-27 06:14 | CONS ---
DATE OF ADMISSION: 07/20/2017 DATE OF CONSULTATION: GASTROINTESTINAL CONSULTATION FOLLOWUP HISTORY OF PRESENT ILLNESS: An 87-year-old female status post tracheostomy and PEG, was admitted fo r anemia. No obvious GI bleeding was noted. It is possible patient may have lost blood in the nurs ing home, which was not witnessed by anybody. At present, patient has no further GI bleeding. She had diarrhea for which C. difficile was sent and was positive and patient was started on vancomycin. OBJECTIVE: GENERAL: Not in distress. VITAL SIGNS: Stable. LUNGS: Clear. She is on vent. EXTREMITIES: No edema. CENTRAL NERVOUS SYSTEM: Patient does not communicate. IMPRESSION 1. Clostridium difficile colitis. 2. Anemia. 3. Ventilator-dependent respiratory failure. PLAN: Continue vancomycin. We will monitor H and H and continue present care. Dictated By: MARY SAXENA/TONIO Conf#: [id number] DID#: [id number]
[2017-07-27] MEDS: ALBUTEROL HFA 8 GM INHALER INH PRN ×2 (07:54→15:18)
[2017-07-27] MEDS: IPRATROPIUM (HFA) 12.9 GM INHALER INH PRN ×2 (07:54→15:17)
[2017-07-27] MEDS: BISACODYL 10 MG SUPP PR SCH (09:00)
--- NOTE | 2017-07-27 09:15 | CONS ---
Date/Time of Note Date/Time of Note DATE: 07/27/17 TIME: 09:14 Consult Date/Type/Reason Admit Date/Time Jul 20, 2017 at 20:47 Initial Consult Date 07/21/17 Type of Consultation: neph Subjective SUBJECTIVE: The patient remains on FIO2 at 65%. No other acute events noted. No hemoptysis, hematemesis or hematochezia. POC reviewed with dr. cyr. security sales consultant input appreciated. OBJECTIVE: HEENT: Head is normocephalic. NECK: Supple. HEART: Regular rate. LUNGS: Show diminished breath sounds at the base. ABDOMEN: Soft, nontender to palpation, rebound or guarding. EXTREMITIES: Negative for clubbing, cyanosis, or edema. DERMATOLOGIC: No rashes. MUSCULOSKELETAL: No joint effusions. NEUROLOGIC: No change in exam. MEDICATIONS: The patient's medications have been reviewed. Objective Vital Signs Date Time Temp Pulse Resp B/P Pulse Ox O2 Delivery O2 Flow Rate FiO2 07/27/17 08:42 67 07/27/17 08:09 97.5 23 146/72 99 07/27/17 05:02 100 07/27/17 04:00 Mechanical Ventilator Intake and Output 07/26/17 07/26/17 07/27/17 15:00 23:00 07:00 Intake Total 1060 ml 1010 ml Output Total 1300 ml 850 ml Balance -240 ml 160 ml Results/Medications Result Diagram: 07/27/17 0600 07/27/17 0600 Results 24 hrs Laboratory Tests Test 07/26/17 16:34 07/27/17 06:00 Blood Gas Specimen Source Blood arterial Arterial Blood Date Drawn 07/26/2017 7:40:50 PM Arterial Blood pH (Temp corrected) 7.479 H Arterial Blood pCO2 (Temp correct) 36.0 Arterial Blood pO2 (Temp corrected) 73.8 L Arterial Blood HCO3 26.1 H Arterial Blood Base Excess 2.8 Arterial Blood Oxygen Saturation 95.2 Brant Test ACCEPTAB Arterial Blood Gas Puncture Site LB Arterial Blood Carboxyhemoglobin 0.1 Arterial Blood Methemoglobin 0.4 Blood Gas A-a O2 Differential 350.5 H Oxyhemoglobin Percent 94.7 Total Hemoglobin 12.7 Blood Gas Temperature 37.0 Blood Gas Respiration Rate 10.0 Blood Gas Actual Respiration Rate 21 Blood Gas Modality VENT - AC FiO2 65.0 Blood Gas Tidal Volume 450.0 Blood Gas High PEEP Setting 5.0 Blood Gas Notified Whom Manuel CAMPBELL Blood Gas Notified Time 07/26/2017 7:49:30 PM White Blood Count 12.3 #H Red Blood Count 3.53 L Hemoglobin 10.6 L Hematocrit 34.6 L Mean Corpuscular Volume 98.0 Mean Corpuscular Hemoglobin 30.0 Mean Corpuscular Hemoglobin Concent 30.6 L Red Cell Distribution Width 16.2 H Platelet Count 172 Mean Platelet Volume 10.9 H Neutrophils % 91.6 H Lymphocytes % 4.3 L Monocytes % 3.1 Eosinophils % 0.2 Basophils % 0.2 Nucleated Red Blood Cells % 0.2 H Neutrophils # 11.3 H Lymphocytes # 0.5 L Monocytes # 0.4 Eosinophils # 0.0 Basophils # 0.0 Nucleated Red Blood Cells # 0.0 Sodium Level 140 Potassium Level 4.3 Chloride Level 102 Carbon Dioxide Level 26 Anion Gap 16 Blood Urea Nitrogen 24 H Creatinine 0.75 Glucose Level 137 Calcium Level 8.8 Phosphorus Level 3.7 Magnesium Level 1.9 Medications Current Medications Diltiazem HCl (Cardizem) 60 mg Q6 GTB Last administered on 07/27/17 05:35; Admin Dose 60 MG; Start 07/21/17 at 12:00 Bisacodyl (Dulcolax Supp) [address] Last administered on 07/23/17 09:10; Admin Dose 10 MG; Start 07/21/17 at 09:00 Calcium Carbonate (Oyster Shell Calcium) 1.25 gm BID GTB Last administered on 07/26/17 21:31; Admin Dose 1.25 GM; Start 07/21/17 at 09:00 Chlorhexidine Gluconate (Peridex) 15 ml Q12 MM Last administered on 07/26/17 21:31; Admin Dose 15 ML; Start 07/21/17 at 09:00 Losartan Potassium (Cozaar) 100 mg DAILY GTB Last administered on 07/26/17 10 :21; Admin Dose 100 MG; Start 07/21/17 at 09:00 Magnesium Hydroxide (Milk Of Mag) 30 ml DAILY GTB Last administered on 08:37; Admin Dose 30 ML; Start 07/21/17 at 09:00 Metoprolol Tartrate (Lopressor) 50 mg BID GTB Last administered on 07/26/17 21:32; Admin Dose 50 MG; Start 07/21/17 at 09:00 Ondansetron HCl (Zofran Tab) 4 mg Q6H PRN GTB NAUSEA AND/OR VOMITING; Start at 07:00 Sodium Biphosphate/ Sodium Phosphate (Fleet Enema Pediatric) 66.[address] CONSTIPATION; Start 07/21/17 at 07:00 Spironolactone (Aldactone) 25 mg BID GTB Last administered on 07/26/17 21:31 ; Admin Dose 25 MG; Start 07/21/17 at 09:00 Lansoprazole 30 mg 30 mg BID@06,18 GTB Last administered on 07/27/17 05:35; Admin Dose 30 MG; Start 07/21/17 at 09:15 Meropenem/Sodium Chloride (Merrem 500mg/50 ml(Pmx)) 50 ml @ 200 mls/hr Q8 IVPB Last administered on 07/27/17 05:36; Admin Dose 200 MLS/HR; Start 07/23/17 at 14:00 Acetaminophen (Tylenol Liquid) 650 mg Q6H GTB Last administered on 07/27/17 05:34; Admin Dose 650 MG; Start 07/23/17 at 17:30 Apixaban (Eliquis) 2.5 mg BID PO Last administered on 07/26/17 21:31; Admin Dose 2.5 MG; Start 07/24/17 at 21:00 Amantadine HCl (Symmetrel) 100 mg BID GTB Last administered on 07/26/17 21:31 ; Admin Dose 100 MG; Start 07/24/17 at 21:00 Metronidazole (Flagyl) 500 mg Q8 NGT Last administered on 07/27/17 05:35; Admin Dose 500 MG; Start 07/25/17 at 14:30 Hydralazine HCl (Apresoline) 25 mg TID GTB Last administered on 07/26/17 21: 32; Admin Dose 25 MG; Start 07/26/17 at 09:00 Furosemide (Lasix) 40 mg DAILY IV Last administered on 07/26/17 10:25; Admin Dose 40 MG; Start 07/26/17 at 10:00 Digoxin (Digoxin) 0.125 mg DAILY GTB ; Start 07/27/17 at 09:00 Lorazepam (Ativan) 2 mg Q6H PRN IV AGITATION; Start 07/27/17 at 04:00 Assessment/Plan Chief Complaint/Hosp Course ASSESSMENT AND PLAN: 1. Anemia. Etiology is unclear. The patient is status post blood transfusion. Hemoglobin level has been stable. Continue to monitor. 2. Ventilator dependent respiratory failure. Etiology secondary to pneumonia, possible aspiration. The patient's FIO2 levels remain elevated, but slowly improving. Continue to monitor. Follow up with pulmonary. 3. Dysphagia, status post percutaneous endoscopic gastrostomy tube tube feeding. 4. Hypernatremia. The patient is status post D5 water and increase free water flushes will follow up sodium levels and monitor. 5. Nonoliguric acute kidney injury on top of chronic kidney disease. Etiology secondary to hemodynamics. Continue current treatment plan, supportive care, renally dose all medicines. 6. Hypertension. Continue current blood pressure regimen. We will adjust medications as needed. 7. Mineral bone disorder. Monitor calcium and phosphorus levels. 8. Hyperkalemia, resolved. 9. 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 Continue to monitor. 10. Acute on chronic congestive heart failure exacerbation with systolic, diastolic. The patient is being followed by cardiology. Continue medical management. 11. Urinary tract infection. Continue current antibiotic regimen. 12. Atrial fibrillation, rate controlled. Continue medical management. 13. Hypothyroidism, on Synthroid. 14. DVT and GI prophylaxis. DISPOSITION: A [facility] evaluation has been placed, awaiting approval and possible bed availability. Problems: YUMIKO EDWARDS MD Jul 27, 2017 09:15
[2017-07-27] MEDS: AMANTADINE 100 MG/10 ML POSYR GTB SCH ×2 (09:47→23:18)
[2017-07-27] MEDS: MAGNESIUM HYDROXIDE 30ML CUP GTB SCH (09:47)
[2017-07-27] MEDS: CHLORHEXIDINE GLUCONATE 15 ML UD CUP MM SCH ×2 (09:47→23:18)
[2017-07-27] MEDS: LOSARTAN 50 MG TAB GTB SCH (09:48)
[2017-07-27] MEDS: FUROSEMIDE 40 MG INJ IV SCH (09:48)
[2017-07-27] MEDS: APIXABAN 5 MG TABLET PO SCH ×2 (09:48→23:21)
[2017-07-27] MEDS: SPIRONOLACTONE 25 MG TAB GTB SCH ×2 (09:49→23:20)
[2017-07-27] MEDS: DIGOXIN 0.125 MG TAB GTB SCH (09:49)
[2017-07-27] MEDS: METOPROLOL 50 MG TAB GTB SCH ×2 (09:49→23:21)
[2017-07-27] MEDS: CALCIUM CARBONATE 1.25 GM TAB GTB SCH ×2 (09:49→23:22)
--- NOTE | 2017-07-27 11:02 | RADRPT ---
PROCEDURE: XR Chest. CLINICAL INDICATION: desaturation TECHNIQUE: Single frontal view of the chest was obtained. COMPARISON: Chest x-ray from 07/25/2017 FINDINGS: A tracheostomy is again noted. There is stable mild to moderate cardiomegaly. There is minimal congestion on a background of chroni c / senescent changes which have improved since the prior chest x-ray from 07/25/2017. There has been a marked interval improvement in patchy opacities seen previously in the right mid to lower lung zones. There is a stable retrocardiac opacity due to atelectasis, infiltrate, and / or e ffusion. There is no significant right pleural effusion. The aortic arch is calcified. IMPRESSION: Marked interval improvement in patchy opacities, possibly infiltrates, in the right mid to lower rin g zones as well as interval improvement in mild congestion seen previously. Stable retrocardiac opacity due to atelectasis, infiltrate, and / or effusion. RPTAT: EE Physician Darius Date Time Electronically viewed and signed by Physician Darius on 07/27/2017 11:01 /
--- NOTE | 2017-07-27 12:14 | CONS ---
Date/Time of Note Date/Time of Note DATE: 07/27/17 TIME: 12:09 Assessment/Plan Assessment/Plan Chief Complaint/Hosp Course 1. Afib with intermittent RVR during agitation, now resolved 2. Anemia 3. Ventilator dependent respiratory failure. 4. HTN: 5. 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 Problems: Additional Assessment/Plan RVR likely contributed by agitation during event, now resolved after suction. One additional dose of digoxin given IV Consultation Date/Type/Reason Admit Date/Time Jul 20, 2017 at 20:47 Initial Consult Date 07/21/17 Type of Consultation: cv 24 HR Interval Summary Free Text/Dictation on vent, no distress, called earlier for afib w RVR Subjective hx not possible: pt non-verbal Constitutional: no complaints Exam/Review of Systems Vital Signs Vitals Vital Signs Date Time Temp Pulse Resp B/P Pulse Ox O2 Delivery O2 Flow Rate FiO2 07/27/17 12:02 98.3 84 22 128/71 100 07/27/17 11:15 80 07/27/17 04:00 Mechanical Ventilator Intake and Output 07/26/17 07/26/17 07/27/17 15:00 23:00 07:00 Intake Total 1060 ml 1010 ml Output Total 1300 ml 850 ml Balance -240 ml 160 ml Exam Constitutional: frail Head: atraumatic, normocephalic ENMT: intubated Neck: jvd Cardiovascular: irregular rhythm Gastrointestinal: soft Musculoskeletal: muscle weakness Extremities: normal pulses Results Result Diagram: 07/27/17 0600 07/27/17 0600 Results 24 hrs Laboratory Tests Test 07/26/17 16:34 07/27/17 06:00 Blood Gas Specimen Source Blood arterial Arterial Blood Date Drawn 07/26/2017 7:40:50 PM Arterial Blood pH (Temp corrected) 7.479 H Arterial Blood pCO2 (Temp correct) 36.0 Arterial Blood pO2 (Temp corrected) 73.8 L Arterial Blood HCO3 26.1 H Arterial Blood Base Excess 2.8 Arterial Blood Oxygen Saturation 95.2 Brant Test ACCEPTAB Arterial Blood Gas Puncture Site LB Arterial Blood Carboxyhemoglobin 0.1 Arterial Blood Methemoglobin 0.4 Blood Gas A-a O2 Differential 350.5 H Oxyhemoglobin Percent 94.7 Total Hemoglobin 12.7 Blood Gas Temperature 37.0 Blood Gas Respiration Rate 10.0 Blood Gas Actual Respiration Rate 21 Blood Gas Modality VENT - AC FiO2 65.0 Blood Gas Tidal Volume 450.0 Blood Gas High PEEP Setting 5.0 Blood Gas Notified Whom Manuel CAMPBELL Blood Gas Notified Time 07/26/2017 7:49:30 PM White Blood Count 12.3 #H Red Blood Count 3.53 L Hemoglobin 10.6 L Hematocrit 34.6 L Mean Corpuscular Volume 98.0 Mean Corpuscular Hemoglobin 30.0 Mean Corpuscular Hemoglobin Concent 30.6 L Red Cell Distribution Width 16.2 H Platelet Count 172 Mean Platelet Volume 10.9 H Neutrophils % 91.6 H Lymphocytes % 4.3 L Monocytes % 3.1 Eosinophils % 0.2 Basophils % 0.2 Nucleated Red Blood Cells % 0.2 H Neutrophils # 11.3 H Lymphocytes # 0.5 L Monocytes # 0.4 Eosinophils # 0.0 Basophils # 0.0 Nucleated Red Blood Cells # 0.0 Sodium Level 140 Potassium Level 4.3 Chloride Level 102 Carbon Dioxide Level 26 Anion Gap 16 Blood Urea Nitrogen 24 H Creatinine 0.75 Glucose Level 137 Calcium Level 8.8 Phosphorus Level 3.7 Magnesium Level 1.9 Medications Medications Current Medications Diltiazem HCl (Cardizem) 60 mg Q6 GTB Last administered on 07/27/17 05:35; Admin Dose 60 MG; Start 07/21/17 at 12:00 Bisacodyl (Dulcolax Supp) 10 mg Q2D [place] Last administered on 07/23/17 09:10; Admin Dose 10 MG; Start 07/21/17 at 09:00 Calcium Carbonate (Oyster Shell Calcium) 1.25 gm BID GTB Last administered on 07/27/17 09:49; Admin Dose 1.25 GM; Start 07/21/17 at 09:00 Chlorhexidine Gluconate (Peridex) 15 ml Q12 MM Last administered on 07/27/17 09:47; Admin Dose 15 ML; Start 07/21/17 at 09:00 Losartan Potassium (Cozaar) 100 mg DAILY GTB Last administered on 07/27/17 09 :48; Admin Dose 100 MG; Start 07/21/17 at 09:00 Magnesium Hydroxide (Milk Of Mag) 30 ml DAILY GTB Last administered on 09:47; Admin Dose 30 ML; Start 07/21/17 at 09:00 Metoprolol Tartrate (Lopressor) 50 mg BID GTB Last administered on 07/27/17 09:49; Admin Dose 50 MG; Start 07/21/17 at 09:00 Ondansetron HCl (Zofran Tab) 4 mg Q6H PRN GTB NAUSEA AND/OR VOMITING; Start at 07:00 Sodium Biphosphate/ Sodium Phosphate (Fleet Enema Pediatric) 66.6 ml Q3D PRN [place] CONSTIPATION; Start 07/21/17 at 07:00 Spironolactone (Aldactone) 25 mg BID GTB Last administered on 07/27/17 09:49 ; Admin Dose 25 MG; Start 07/21/17 at 09:00 Lansoprazole 30 mg 30 mg BID@06,18 GTB Last administered on 07/27/17 05:35; Admin Dose 30 MG; Start 07/21/17 at 09:15 Meropenem/Sodium Chloride (Merrem 500mg/50 ml(Pmx)) 50 ml @ 200 mls/hr Q8 IVPB Last administered on 07/27/17 05:36; Admin Dose 200 MLS/HR; Start 07/23/17 at 14:00 Acetaminophen (Tylenol Liquid) 650 mg Q6H GTB Last administered on 07/27/17 05:34; Admin Dose 650 MG; Start 07/23/17 at 17:30 Apixaban (Eliquis) 2.5 mg BID PO Last administered on 07/27/17 09:48; Admin Dose 2.5 MG; Start 07/24/17 at 21:00 Amantadine HCl (Symmetrel) 100 mg BID GTB Last administered on 07/27/17 09:47 ; Admin Dose 100 MG; Start 07/24/17 at 21:00 Metronidazole (Flagyl) 500 mg Q8 NGT Last administered on 07/27/17 05:35; Admin Dose 500 MG; Start 07/25/17 at 14:30 Hydralazine HCl (Apresoline) 25 mg TID GTB Last administered on 07/27/17 09: 50; Admin Dose 25 MG; Start 07/26/17 at 09:00 Furosemide (Lasix) 40 mg DAILY IV Last administered on 07/27/17 09:48; Admin Dose 40 MG; Start 07/26/17 at 10:00 Digoxin (Digoxin) 0.125 mg DAILY GTB Last administered on 07/27/17t 09:49; Admin Dose 0.125 MG; Start 07/27/17 at 09:00 Lorazepam (Ativan) 2 mg Q6H PRN IV AGITATION; Start 07/27/17 at 04:00 AREN WILLIAMSON MD Jul 27, 2017 12:14
--- NOTE | 2017-07-27 12:25 | CONS ---
Date/Time of Note Date/Time of Note DATE: 07/27/17 TIME: 12:23 Consult Date/Type/Reason Admit Date/Time Jul 20, 2017 at 20:47 Initial Consult Date 07/21/17 Type of Consultation: Pulmonary Subjective Acute distress yesterday requiring increased FiO2. Appears more comfortable this morning. Objective Vital Signs Date Time Temp Pulse Resp B/P Pulse Ox O2 Delivery O2 Flow Rate FiO2 07/27/17 12:02 98.3 84 22 128/71 100 07/27/17 11:15 80 07/27/17 04:00 Mechanical Ventilator Intake and Output 07/26/17 07/26/17 07/27/17 15:00 23:00 07:00 Intake Total 1060 ml 1010 ml Output Total 1300 ml 850 ml Balance -240 ml 160 ml Exam GENERAL: Elderly appearing lady on mechanical ventilation appears comfortable at rest VITAL SIGNS: per chart NECK: Supple. No JVD or lymphadenopathy. CARDIAC EXAM: S1, S2. No added sounds or murmurs. CHEST: Diminished air entry bilaterally ABDOMEN: Soft, nontender. No guarding or rebound. EXTREMITIES: No cyanosis, clubbing or edema. NEUROLOGIC: Generalized weakness. Results/Medications Result Diagram: 07/27/17 0600 07/27/17 0600 Results 24 hrs Chest x-ray demonstrates bilateral infiltrates which have significantly improved Laboratory Tests Test 07/26/17 16:34 07/27/17 06:00 Blood Gas Specimen Source Blood arterial Arterial Blood Date Drawn 07/26/2017 7:40:50 PM Arterial Blood pH (Temp corrected) 7.479 H Arterial Blood pCO2 (Temp correct) 36.0 Arterial Blood pO2 (Temp corrected) 73.8 L Arterial Blood HCO3 26.1 H Arterial Blood Base Excess 2.8 Arterial Blood Oxygen Saturation 95.2 Brant Test ACCEPTAB Arterial Blood Gas Puncture Site LB Arterial Blood Carboxyhemoglobin 0.1 Arterial Blood Methemoglobin 0.4 Blood Gas A-a O2 Differential 350.5 H Oxyhemoglobin Percent 94.7 Total Hemoglobin 12.7 Blood Gas Temperature 37.0 Blood Gas Respiration Rate 10.0 Blood Gas Actual Respiration Rate 21 Blood Gas Modality VENT - AC FiO2 65.0 Blood Gas Tidal Volume 450.0 Blood Gas High PEEP Setting 5.0 Blood Gas Notified Whom T ADRIAN Blood Gas Notified Time 07/26/2017 7:49:30 PM White Blood Count 12.3 #H Red Blood Count 3.53 L Hemoglobin 10.6 L Hematocrit 34.6 L Mean Corpuscular Volume 98.0 Mean Corpuscular Hemoglobin 30.0 Mean Corpuscular Hemoglobin Concent 30.6 L Red Cell Distribution Width 16.2 H Platelet Count 172 Mean Platelet Volume 10.9 H Neutrophils % 91.6 H Lymphocytes % 4.3 L Monocytes % 3.1 Eosinophils % 0.2 Basophils % 0.2 Nucleated Red Blood Cells % 0.2 H Neutrophils # 11.3 H Lymphocytes # 0.5 L Monocytes # 0.4 Eosinophils # 0.0 Basophils # 0.0 Nucleated Red Blood Cells # 0.0 Sodium Level 140 Potassium Level 4.3 Chloride Level 102 Carbon Dioxide Level 26 Anion Gap 16 Blood Urea Nitrogen 24 H Creatinine 0.75 Glucose Level 137 Calcium Level 8.8 Phosphorus Level 3.7 Magnesium Level 1.9 Medications Current Medications Diltiazem HCl (Cardizem) 60 mg Q6 GTB Last administered on 07/27/17 05:35; Admin Dose 60 MG; Start 07/21/17 at 12:00 Bisacodyl (Dulcolax Supp) 10 mg Q2D [place] Last administered on 07/23/17 09:10; Admin Dose 10 MG; Start 07/21/17 at 09:00 Calcium Carbonate (Oyster Shell Calcium) 1.25 gm BID GTB Last administered on 07/27/17 09:49; Admin Dose 1.25 GM; Start 07/21/17 at 09:00 Chlorhexidine Gluconate (Peridex) 15 ml Q12 MM Last administered on 07/27/17 09:47; Admin Dose 15 ML; Start 07/21/17 at 09:00 Losartan Potassium (Cozaar) 100 mg DAILY GTB Last administered on 07/27/17 09 :48; Admin Dose 100 MG; Start 07/21/17 at 09:00 Magnesium Hydroxide (Milk Of Mag) 30 ml DAILY GTB Last administered on 09:47; Admin Dose 30 ML; Start 07/21/17 at 09:00 Metoprolol Tartrate (Lopressor) 50 mg BID GTB Last administered on 07/27/17 09:49; Admin Dose 50 MG; Start 07/21/17 at 09:00 Ondansetron HCl (Zofran Tab) 4 mg Q6H PRN GTB NAUSEA AND/OR VOMITING; Start at 07:00 Sodium Biphosphate/ Sodium Phosphate (Fleet Enema Pediatric) 66.6 ml Q3D PRN [place] CONSTIPATION; Start 07/21/17 at 07:00 Spironolactone (Aldactone) 25 mg BID GTB Last administered on 07/27/17 09:49 ; Admin Dose 25 MG; Start 07/21/17 at 09:00 Lansoprazole 30 mg 30 mg BID@06,18 GTB Last administered on 07/27/17 05:35; Admin Dose 30 MG; Start 07/21/17 at 09:15 Meropenem/Sodium Chloride (Merrem 500mg/50 ml(Pmx)) 50 ml @ 200 mls/hr Q8 IVPB Last administered on 07/27/17 05:36; Admin Dose 200 MLS/HR; Start 07/23/17 at 14:00 Acetaminophen (Tylenol Liquid) 650 mg Q6H GTB Last administered on 07/27/17 05:34; Admin Dose 650 MG; Start 07/23/17 at 17:30 Apixaban (Eliquis) 2.5 mg BID PO Last administered on 07/27/17 09:48; Admin Dose 2.5 MG; Start 07/24/17 at 21:00 Amantadine HCl (Symmetrel) 100 mg BID GTB Last administered on 07/27/17 09:47 ; Admin Dose 100 MG; Start 07/24/17 at 21:00 Metronidazole (Flagyl) 500 mg Q8 NGT Last administered on 07/27/17 05:35; Admin Dose 500 MG; Start 07/25/17 at 14:30 Hydralazine HCl (Apresoline) 25 mg TID GTB Last administered on 07/27/17 09: 50; Admin Dose 25 MG; Start 07/26/17 at 09:00 Furosemide (Lasix) 40 mg DAILY IV Last administered on 07/27/17 09:48; Admin Dose 40 MG; Start 07/26/17 at 10:00 Digoxin (Digoxin) 0.125 mg DAILY GTB Last administered on 07/27/17 09:49; Admin Dose 0.125 MG; Start 07/27/17 at 09:00 Lorazepam (Ativan) 2 mg Q6H PRN IV AGITATION; Start 07/27/17 at 04:00 Assessment/Plan Chief Complaint/Hosp Course IMP: 1. Anemia 2. VDRF 3. Afib with RVR 4. Resolved renal insufficiency. 5. UTI gram-negative rods 6. Hypoxemia likely secondary to mucous plugging as radiographic improvement noted. Ongoing pulmonary edema also noted. RECS: 1. Continue current antibiotics pending culture results 2. Vent support 3. BD's 4. Anemia w/u as per GI 5. Diuresis as tolerated. DC planning okay from pulmonary standpoint Problems: MELBA SEVERINO MD, [facility] Jul 27, 2017 12:25
--- NOTE | 2017-07-27 13:09 | CONS ---
Date/Time of Note Date/Time of Note DATE: 07/27/17 TIME: 12:58 Assessment/Plan Assessment/Plan Chief Complaint/Hosp Course ID PROGRESS NOTE CURRENT ABX: TOTAL ABX DAY # 7=> Merrem + Flagyl s/p Ceftriaxone 07/21 - 07/23 24H INTERVAL SUMMARY * 87 yo F -- lethargic, obese, stable * Afebrile today, yesterday TMax 99.7 * 07/27/17 CXR: Marked interval improvement in patchy opacities, possibly infiltrates, in the right mid to lower lung zones as well as interval improvement in mild congestion seen previously.Stable retrocardiac opacity due to atelectasis, infiltrate, and / or effusion. * 07/27/17 0600 07/27/17 0600 PHYSICAL EXAMINATION: GENERAL: VSS, NAD HEENT: Unremarkable NECK: (+) Trach CHEST: Equal chest rise bilaterally, without dyspnea on observation HEART: Pulse RRR ABDOMEN: Soft/peg EXTREMITIES: Warm SKIN: See hard chart skin assessment ID ASSESSMENT: 87 yo F w/PMHx CVA w/mild dementia, dysphagia, trach admit with: 1. Resolving sepsis 2nd GNR MDRO KP-ESBL UTI + C.Diff colitis + HCAP 2. Healthcare-associated pneumonia. 3. Urinary tract infection.URINE CULTURE Final Organism 1 K PNEUMO ESBL COLONY COUNT >100,000 CFU/ml 4. Clostridium difficile colitis. 5. Chronic respiratory failure. 6. Acute on chronic kidney disease, nephrology follows. 7. Acute Congestive heart failure exacerbation 8. Atrial fibrillation w/Hx of RVR > On Eliquis + Dig + beta parvin 9. Anemia * Hx of remote GIB prior admission: s/p EGD and colonoscopy.- moderate to large hemorrhoids, polyp. Severe gastritis. INVASIVES: PIV, Trach, PEG ABX ALLERGY: None to ABX CURRENT ABX: TOTAL ABX DAY # 7=> Merrem #5 + Flagyl s/p Ceftriaxone 07/21 - 07/23 ID RECOMMENDATIONS: 1. Continue current ABX anticipate 7-10 day course . Problems: Consultation Date/Type/Reason Admit Date/Time Jul 20, 2017 at 20:47 Initial Consult Date 07/21/17 Type of Consultation: ID Exam/Review of Systems Vital Signs Vitals Vital Signs Date Time Temp Pulse Resp B/P Pulse Ox O2 Delivery O2 Flow Rate FiO2 07/27/17 12:34 75 07/27/17 12:02 98.3 22 128/71 100 07/27/17 11:15 80 07/27/17 04:00 Mechanical Ventilator Intake and Output 07/26/17 07/26/17 07/27/17 15:00 23:00 07:00 Intake Total 1060 ml 1010 ml Output Total 1300 ml 850 ml Balance -240 ml 160 ml Results Result Diagram: 07/27/17 0600 07/27/17 0600 Results 24 hrs Laboratory Tests Test 07/26/17 16:34 07/27/17 06:00 Blood Gas Specimen Source Blood arterial Arterial Blood Date Drawn 07/26/2017 7:40:50 PM Arterial Blood pH (Temp corrected) 7.479 H Arterial Blood pCO2 (Temp correct) 36.0 Arterial Blood pO2 (Temp corrected) 73.8 L Arterial Blood HCO3 26.1 H Arterial Blood Base Excess 2.8 Arterial Blood Oxygen Saturation 95.2 Brant Test ACCEPTAB Arterial Blood Gas Puncture Site LB Arterial Blood Carboxyhemoglobin 0.1 Arterial Blood Methemoglobin 0.4 Blood Gas A-a O2 Differential 350.5 H Oxyhemoglobin Percent 94.7 Total Hemoglobin 12.7 Blood Gas Temperature 37.0 Blood Gas Respiration Rate 10.0 Blood Gas Actual Respiration Rate 21 Blood Gas Modality VENT - AC FiO2 65.0 Blood Gas Tidal Volume 450.0 Blood Gas High PEEP Setting 5.0 Blood Gas Notified Whom Manuel CAMPBELL Blood Gas Notified Time 07/26/2017 7:49:30 PM White Blood Count 12.3 #H Red Blood Count 3.53 L Hemoglobin 10.6 L Hematocrit 34.6 L Mean Corpuscular Volume 98.0 Mean Corpuscular Hemoglobin 30.0 Mean Corpuscular Hemoglobin Concent 30.6 L Red Cell Distribution Width 16.2 H Platelet Count 172 Mean Platelet Volume 10.9 H Neutrophils % 91.6 H Lymphocytes % 4.3 L Monocytes % 3.1 Eosinophils % 0.2 Basophils % 0.2 Nucleated Red Blood Cells % 0.2 H Neutrophils # 11.3 H Lymphocytes # 0.5 L Monocytes # 0.4 Eosinophils # 0.0 Basophils # 0.0 Nucleated Red Blood Cells # 0.0 Sodium Level 140 Potassium Level 4.3 Chloride Level 102 Carbon Dioxide Level 26 Anion Gap 16 Blood Urea Nitrogen 24 H Creatinine 0.75 Glucose Level 137 Calcium Level 8.8 Phosphorus Level 3.7 Magnesium Level 1.9 Medications Medications Current Medications Diltiazem HCl (Cardizem) 60 mg Q6 GTB Last administered on 07/27/17 05:35; Admin Dose 60 MG; Start 07/21/17 at 12:00 Bisacodyl (Dulcolax Supp) 10 mg Q2D [place] Last administered on 07/23/17 09:10; Admin Dose 10 MG; Start 07/21/17 at 09:00 Calcium Carbonate (Oyster Shell Calcium) 1.25 gm BID GTB Last administered on 07/27/17 09:49; Admin Dose 1.25 GM; Start 07/21/17 at 09:00 Chlorhexidine Gluconate (Peridex) 15 ml Q12 MM Last administered on 07/27/17 09:47; Admin Dose 15 ML; Start 07/21/17 at 09:00 Losartan Potassium (Cozaar) 100 mg DAILY GTB Last administered on 07/27/17 09 :48; Admin Dose 100 MG; Start 07/21/17 at 09:00 Magnesium Hydroxide (Milk Of Mag) 30 ml DAILY GTB Last administered on 09:47; Admin Dose 30 ML; Start 07/21/17 at 09:00 Metoprolol Tartrate (Lopressor) 50 mg BID GTB Last administered on 07/27/17 09:49; Admin Dose 50 MG; Start 07/21/17 at 09:00 Ondansetron HCl (Zofran Tab) 4 mg Q6H PRN GTB NAUSEA AND/OR VOMITING; Start at 07:00 Sodium Biphosphate/ Sodium Phosphate (Fleet Enema Pediatric) 66.6 ml Q3D PRN [place] CONSTIPATION; Start 07/21/17 at 07:00 Spironolactone (Aldactone) 25 mg BID GTB Last administered on 07/27/17 09:49 ; Admin Dose 25 MG; Start 07/21/17 at 09:00 Lansoprazole 30 mg 30 mg BID@06,18 GTB Last administered on 07/27/17 05:35; Admin Dose 30 MG; Start 07/21/17 at 09:15 Meropenem/Sodium Chloride (Merrem 500mg/50 ml(Pmx)) 50 ml @ 200 mls/hr Q8 IVPB Last administered on 07/27/17 05:36; Admin Dose 200 MLS/HR; Start 07/23/17 at 14:00 Acetaminophen (Tylenol Liquid) 650 mg Q6H GTB Last administered on 07/27/17 05:34; Admin Dose 650 MG; Start 07/23/17 at 17:30 Apixaban (Eliquis) 2.5 mg BID PO Last administered on 07/27/17 09:48; Admin Dose 2.5 MG; Start 07/24/17 at 21:00 Amantadine HCl (Symmetrel) 100 mg BID GTB Last administered on 07/27/17 09:47 ; Admin Dose 100 MG; Start 07/24/17 at 21:00 Metronidazole (Flagyl) 500 mg Q8 NGT Last administered on 07/27/17 05:35; Admin Dose 500 MG; Start 07/25/17 at 14:30 Hydralazine HCl (Apresoline) 25 mg TID GTB Last administered on 07/27/17 09: 50; Admin Dose 25 MG; Start 07/26/17 at 09:00 Furosemide (Lasix) 40 mg DAILY IV Last administered on 07/27/17 09:48; Admin Dose 40 MG; Start 07/26/17 at 10:00 Digoxin (Digoxin) 0.125 mg DAILY GTB Last administered on 07/27/17 09:49; Admin Dose 0.125 MG; Start 07/27/17 at 09:00 Lorazepam (Ativan) 2 mg Q6H PRN IV AGITATION; Start 07/27/17 at 04:00 SABINO FONTANEZ NP Jul 27, 2017 13:09
--- NOTE | 2017-07-27 15:42 | CONS ---
Date/Time of Note Date/Time of Note DATE: 07/27/17 TIME: 15:41 Assessment/Plan Assessment/Plan Additional Assessment/Plan Chief Complaint/Hosp Course Impression: 1. Anemia: r/o GIB. My ALBERTO do not show melena or hematochezia 2. Atrial fibrillation with RVR 3. dysphagia s/p trach 4. CVA 5. Diarrhea, C. difficile colitis Recommendations: 1. monitor h/h and transfuse PRN hgb less than 7 2. f/u stool for occult blood. If positive, consider EGD. Patient had a colonoscopy last month which was grossly negative except for the hemorrhoids 3. increased PPI to bid dosing 4. cardiac eval and would need cardiology clearance before any endoscopic procedure 5. Hematocrit is stable at this point 6. Vancomycin for C. difficile colitis Consultation Date/Type/Reason Admit Date/Time Jul 20, 2017 at 20:47 Initial Consult Date 07/21/17 Type of Consultation: ID 24 HR Interval Summary Constitutional: improved Exam/Review of Systems Vital Signs Vitals Vital Signs Date Time Temp Pulse Resp B/P Pulse Ox O2 Delivery O2 Flow Rate FiO2 07/27/17 12:34 75 07/27/17 12:02 98.3 22 128/71 100 07/27/17 12:00 Mechanical Ventilator 07/27/17 11:15 80 Intake and Output 07/26/17 07/26/17 07/27/17 15:00 23:00 07:00 Intake Total 1060 ml 1010 ml Output Total 1300 ml 850 ml Balance -240 ml 160 ml Exam Constitutional: alert, oriented, well developed Psych: nl mood/affect, no complaints Head: atraumatic, normocephalic Eyes: EOMI, PERRL, nl conjunctiva, nl lids, nl sclera ENMT: nl external ears & nose, nl lips & teeth, nl nasal mucosa & septum Neck: non-tender, supple Respiratory: clear to auscultation, normal air movement Cardiovascular: nl pulses, regular rate and rhythm Gastrointestinal: nl liver, spleen, non-tender, soft Musculoskeletal: nl extremities to inspection, nl gait and stance Extremities: normal pulses Neurological: 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, nl mental status, nl speech, nl strength Skin: nl turgor, No rash or lesions Lymph: nl lymph nodes Results Result Diagram: 07/27/17 0600 07/27/17 0600 Results 24 hrs Laboratory Tests Test 07/26/17 16:34 07/27/17 06:00 Blood Gas Specimen Source Blood arterial Arterial Blood Date Drawn 07/26/2017 7:40:50 PM Arterial Blood pH (Temp corrected) 7.479 H Arterial Blood pCO2 (Temp correct) 36.0 Arterial Blood pO2 (Temp corrected) 73.8 L Arterial Blood HCO3 26.1 H Arterial Blood Base Excess 2.8 Arterial Blood Oxygen Saturation 95.2 Brant Test ACCEPTAB Arterial Blood Gas Puncture Site LB Arterial Blood Carboxyhemoglobin 0.1 Arterial Blood Methemoglobin 0.4 Blood Gas A-a O2 Differential 350.5 H Oxyhemoglobin Percent 94.7 Total Hemoglobin 12.7 Blood Gas Temperature 37.0 Blood Gas Respiration Rate 10.0 Blood Gas Actual Respiration Rate 21 Blood Gas Modality VENT - AC FiO2 65.0 Blood Gas Tidal Volume 450.0 Blood Gas High PEEP Setting 5.0 Blood Gas Notified Whom T [place] Blood Gas Notified Time 07/26/2017 7:49:30 PM White Blood Count 12.3 #H Red Blood Count 3.53 L Hemoglobin 10.6 L Hematocrit 34.6 L Mean Corpuscular Volume 98.0 Mean Corpuscular Hemoglobin 30.0 Mean Corpuscular Hemoglobin Concent 30.6 L Red Cell Distribution Width 16.2 H Platelet Count 172 Mean Platelet Volume 10.9 H Neutrophils % 91.6 H Lymphocytes % 4.3 L Monocytes % 3.1 Eosinophils % 0.2 Basophils % 0.2 Nucleated Red Blood Cells % 0.2 H Neutrophils # 11.3 H Lymphocytes # 0.5 L Monocytes # 0.4 Eosinophils # 0.0 Basophils # 0.0 Nucleated Red Blood Cells # 0.0 Sodium Level 140 Potassium Level 4.3 Chloride Level 102 Carbon Dioxide Level 26 Anion Gap 16 Blood Urea Nitrogen 24 H Creatinine 0.75 Glucose Level 137 Calcium Level 8.8 Phosphorus Level 3.7 Magnesium Level 1.9 Medications Medications Current Medications Diltiazem HCl (Cardizem) 60 mg Q6 GTB Last administered on 07/27/17 13:07; Admin Dose 60 MG; Start 07/21/17 at 12:00 Bisacodyl (Dulcolax Supp) 10 mg Q2D [place] Last administered on 07/23/17 09:10; Admin Dose 10 MG; Start 07/21/17 at 09:00 Calcium Carbonate (Oyster Shell Calcium) 1.25 gm BID GTB Last administered on 07/27/17 09:49; Admin Dose 1.25 GM; Start 07/21/17 at 09:00 Chlorhexidine Gluconate (Peridex) 15 ml Q12 MM Last administered on 07/27/17 09:47; Admin Dose 15 ML; Start 07/21/17 at 09:00 Losartan Potassium (Cozaar) 100 mg DAILY GTB Last administered on 07/27/17 09 :48; Admin Dose 100 MG; Start 07/21/17 at 09:00 Magnesium Hydroxide (Milk Of Mag) 30 ml DAILY GTB Last administered on 09:47; Admin Dose 30 ML; Start 07/21/17 at 09:00 Metoprolol Tartrate (Lopressor) 50 mg BID GTB Last administered on 07/27/17 09:49; Admin Dose 50 MG; Start 07/21/17 at 09:00 Ondansetron HCl (Zofran Tab) 4 mg Q6H PRN GTB NAUSEA AND/OR VOMITING; Start at 07:00 Sodium Biphosphate/ Sodium Phosphate (Fleet Enema Pediatric) 66.6 ml Q3D PRN [place] CONSTIPATION; Start 07/21/17 at 07:00 Spironolactone (Aldactone) 25 mg BID GTB Last administered on 07/27/17 09:49 ; Admin Dose 25 MG; Start 07/21/17 at 09:00 Lansoprazole 30 mg 30 mg BID@06,18 GTB Last administered on 07/27/17 05:35; Admin Dose 30 MG; Start 07/21/17 at 09:15 Meropenem/Sodium Chloride (Merrem 500mg/50 ml(Pmx)) 50 ml @ 200 mls/hr Q8 IVPB Last administered on 07/27/17 13:55; Admin Dose 200 MLS/HR; Start 07/23/17 at 14:00 Acetaminophen (Tylenol Liquid) 650 mg Q6H GTB Last administered on 07/27/17 13:07; Admin Dose 650 MG; Start 07/23/17 at 17:30 Apixaban (Eliquis) 2.5 mg BID PO Last administered on 07/27/17 09:48; Admin Dose 2.5 MG; Start 07/24/17 at 21:00 Amantadine HCl (Symmetrel) 100 mg BID GTB Last administered on 07/27/17 09:47 ; Admin Dose 100 MG; Start 07/24/17 at 21:00 Metronidazole (Flagyl) 500 mg Q8 NGT Last administered on 07/27/17 13:55; Admin Dose 500 MG; Start 07/25/17 at 14:30 Hydralazine HCl (Apresoline) 25 mg TID GTB Last administered on 07/27/17 09: 50; Admin Dose 25 MG; Start 07/26/17 at 09:00 Furosemide (Lasix) 40 mg DAILY IV Last administered on 07/27/17 09:48; Admin Dose 40 MG; Start 07/26/17 at 10:00 Digoxin (Digoxin) 0.125 mg DAILY GTB Last administered on 07/27/17 09:49; Admin Dose 0.125 MG; Start 07/27/17 at 09:00 Lorazepam (Ativan) 2 mg Q6H PRN IV AGITATION; Start 07/27/17 at 04:00 MARY PAYNE MD Jul 27, 2017 15:42
[2017-07-28] VITALS (24 sets, daily range): BP systolic 132–162; BP diastolic 60–94; PULSE 57–80; RESP 16–24
[2017-07-28] MEDS: DILTIAZEM 60 MG TAB GTB SCH ×4 (01:12→17:36)
[2017-07-28] MEDS: metroNIDAZOLE 500 MG TAB NGT SCH ×3 (06:45→23:32)
[2017-07-28] MEDS: LEVOTHYROXINE 125 MCG TAB GTB SCH (06:45)
[2017-07-28] MEDS: ACETAMINOPHEN 650MG/20.3ML CUP GTB SCH ×4 (06:46→23:40)
[2017-07-28] MEDS: LANSOPRAZOLE 30 MG CAP GTB SCH ×2 (06:46→17:36)
[2017-07-28] MEDS: MEROPENEM 500MG/50 ML (PMX) 50 ML IVPB SCH ×3 (06:52→23:32)
--- NOTE | 2017-07-28 08:03 | RADRPT ---
PROCEDURE: XR Chest. CLINICAL INDICATION: Shortness of breath. TECHNIQUE: Single frontal view. COMPARISON: 07/27/2017. FINDINGS: The tracheostomy tube is in satisfactory position. The heart is enlarged. There is calcification in the aorta consistent with atherosclerosis. Patchy bilateral pulmonary air space disease is unchanged . There is left basilar atelectasis, unchanged. There is no pleural effusion. There is no pneumothorax. IMPRESSION: 1. No change from 07/27/2017. RPTAT: QQ .Nash Hudson MD, MD Date Time Electronically viewed and signed by .Nash Hudson MD, MD on 07/28/2017 08:02 .R/
[2017-07-28] MEDS: CHLORHEXIDINE GLUCONATE 15 ML UD CUP MM SCH ×2 (09:00→23:32)
[2017-07-28] MEDS: MAGNESIUM HYDROXIDE 30ML CUP GTB SCH (09:00)
[2017-07-28] MEDS: FUROSEMIDE 40 MG INJ IV SCH (09:27)
[2017-07-28] MEDS: APIXABAN 5 MG TABLET PO SCH ×2 (09:27→23:33)
[2017-07-28] MEDS: SPIRONOLACTONE 25 MG TAB GTB SCH ×2 (09:27→23:34)
[2017-07-28] MEDS: LOSARTAN 50 MG TAB GTB SCH (09:28)
[2017-07-28] MEDS: DIGOXIN 0.125 MG TAB GTB SCH (09:28)
[2017-07-28] MEDS: METOPROLOL 50 MG TAB GTB SCH ×2 (09:29→23:33)
[2017-07-28] MEDS: CALCIUM CARBONATE 1.25 GM TAB GTB SCH ×2 (09:29→23:34)
[2017-07-28] MEDS: AMANTADINE 100 MG/10 ML POSYR GTB SCH ×2 (09:32→23:32)
--- NOTE | 2017-07-28 10:53 | CONS ---
Date/Time of Note Date/Time of Note DATE: 07/28/17 TIME: 10:52 Consult Date/Type/Reason Admit Date/Time Jul 20, 2017 at 20:47 Initial Consult Date 07/21/17 Type of Consultation: Pulmonary Subjective Patient comfortable. Decreased FiO2 now at 50% with PEEP of 10. Objective Vital Signs Date Time Temp Pulse Resp B/P Pulse Ox O2 Delivery O2 Flow Rate FiO2 07/28/17 08:30 50 07/28/17 08:28 77 07/28/17 07:53 98.4 23 132/64 97 07/27/17 18:00 Mechanical Ventilator Intake and Output 07/27/17 07/27/17 07/28/17 15:00 23:00 07:00 Intake Total 960 ml 960 ml Output Total 1000 ml 350 ml Balance -40 ml 610 ml Exam GENERAL: Elderly appearing lady on mechanical ventilation appears comfortable at rest VITAL SIGNS: per chart NECK: Supple. No JVD or lymphadenopathy. CARDIAC EXAM: S1, S2. No added sounds or murmurs. CHEST: Diminished air entry bilaterally ABDOMEN: Soft, nontender. No guarding or rebound. EXTREMITIES: No cyanosis, clubbing or edema. NEUROLOGIC: Generalized weakness. Results/Medications Result Diagram: 07/27/17 0600 07/27/17 0600 Results 24 hrs Laboratory Tests Test 07/28/17 07:00 Blood Gas Specimen Source Blood arterial Arterial Blood Date Drawn 07/28/2017 8:08:33 AM Arterial Blood pH (Temp corrected) 7.466 H Arterial Blood pCO2 (Temp correct) 35.4 Arterial Blood pO2 (Temp corrected) 70.9 L Arterial Blood HCO3 25.0 Arterial Blood Base Excess 1.5 Arterial Blood Oxygen Saturation 94.3 L Brant Test ACCEPTAB Arterial Blood Gas Puncture Site Right Radial Arterial Blood Carboxyhemoglobin 0 Arterial Blood Methemoglobin 0.3 Blood Gas A-a O2 Differential 245.8 H Oxyhemoglobin Percent 94.0 Total Hemoglobin 12.4 Blood Gas Temperature 37.0 Blood Gas Respiration Rate 10.0 Blood Gas Actual Respiration Rate 22 Blood Gas Modality VENT - AC FiO2 50.0 Blood Gas Tidal Volume 450.0 Blood Gas Low PEEP Setting 10.0 Blood Gas Notified Whom AT Blood Gas Notified Time 07/28/2017 8:19:01 AM Medications Current Medications Diltiazem HCl (Cardizem) 60 mg Q6 GTB Last administered on 07/28/17 06:46; Admin Dose 60 MG; Start 07/21/17 at 12:00 Bisacodyl (Dulcolax Supp) 10 mg Q2D [place] Last administered on 07/23/17 09:10; Admin Dose 10 MG; Start 07/21/17 at 09:00 Calcium Carbonate (Oyster Shell Calcium) 1.25 gm BID GTB Last administered on 07/28/17 09:29; Admin Dose 1.25 GM; Start 07/21/17 at 09:00 Chlorhexidine Gluconate (Peridex) 15 ml Q12 MM Last administered on 07/27/17 23:18; Admin Dose 15 ML; Start 07/21/17 at 09:00 Losartan Potassium (Cozaar) 100 mg DAILY GTB Last administered on 07/28/17 09 :28; Admin Dose 100 MG; Start 07/21/17 at 09:00 Magnesium Hydroxide (Milk Of Mag) 30 ml DAILY GTB Last administered on 09:47; Admin Dose 30 ML; Start 07/21/17 at 09:00 Metoprolol Tartrate (Lopressor) 50 mg BID GTB Last administered on 07/28/17 09:29; Admin Dose 50 MG; Start 07/21/17 at 09:00 Ondansetron HCl (Zofran Tab) 4 mg Q6H PRN GTB NAUSEA AND/OR VOMITING; Start at 07:00 Sodium Biphosphate/ Sodium Phosphate (Fleet Enema Pediatric) 66.6 ml Q3D PRN [place] CONSTIPATION; Start 07/21/17 at 07:00 Spironolactone (Aldactone) 25 mg BID GTB Last administered on 07/28/17 09:27 ; Admin Dose 25 MG; Start 07/21/17 at 09:00 Lansoprazole 30 mg 30 mg BID@06,18 GTB Last administered on 07/28/17 06:46; Admin Dose 30 MG; Start 07/21/17 at 09:15 Meropenem/Sodium Chloride (Merrem 500mg/50 ml(Pmx)) 50 ml @ 200 mls/hr Q8 IVPB Last administered on 07/28/17 06:52; Admin Dose 200 MLS/HR; Start 07/23/17 at 14:00 Acetaminophen (Tylenol Liquid) 650 mg Q6H GTB Last administered on 07/28/17 06:46; Admin Dose 650 MG; Start 07/23/17 at 17:30 Apixaban (Eliquis) 2.5 mg BID PO Last administered on 07/28/17 09:27; Admin Dose 2.5 MG; Start 07/24/17 at 21:00 Amantadine HCl (Symmetrel) 100 mg BID GTB Last administered on 07/28/17 09:32 ; Admin Dose 100 MG; Start 07/24/17 at 21:00 Metronidazole (Flagyl) 500 mg Q8 NGT Last administered on 07/28/17 06:45; Admin Dose 500 MG; Start 07/25/17 at 14:30 Hydralazine HCl (Apresoline) 25 mg TID GTB Last administered on 07/27/17 09: 50; Admin Dose 25 MG; Start 07/26/17 at 09:00 Furosemide (Lasix) 40 mg DAILY IV Last administered on 07/28/17 09:27; Admin Dose 40 MG; Start 07/26/17 at 10:00 Digoxin (Digoxin) 0.125 mg DAILY GTB Last administered on 07/28/17 09:28; Admin Dose 0.125 MG; Start 07/27/17 at 09:00 Lorazepam (Ativan) 2 mg Q6H PRN IV AGITATION; Start 07/27/17 at 04:00 Assessment/Plan Chief Complaint/Hosp Course IMP: 1. Anemia 2. VDRF 3. Afib with RVR 4. Resolved renal insufficiency. 5. UTI gram-negative rods 6. Hypoxemia likely secondary to mucous plugging as radiographic improvement noted. Ongoing pulmonary edema also noted. RECS: 1. Continue current antibiotics pending culture results 2. Vent support decrease PEEP and FiO2. 3. BD's 4. Anemia w/u as per GI 5. Diuresis as tolerated. Graff evaluation. Problems: MELBA SEVERINO MD, [facility] Jul 28, 2017 10:53
--- NOTE | 2017-07-28 11:51 | CONS ---
Date/Time of Note Date/Time of Note DATE: 07/28/17 TIME: 11:50 Consult Date/Type/Reason Admit Date/Time Jul 20, 2017 at 20:47 Initial Consult Date 07/21/17 Type of Consultation: neph Subjective The patient remains on FIO2 at 65%. No other acute events noted. No hemoptysis , hematemesis or hematochezia. POC reviewed with dr. cyr. child development consultant input appreciated. OBJECTIVE: HEENT: Head is normocephalic. NECK: Supple. HEART: Regular rate. LUNGS: Show diminished breath sounds at the base. ABDOMEN: Soft, nontender to palpation, rebound or guarding. EXTREMITIES: Negative for clubbing, cyanosis, or edema. DERMATOLOGIC: No rashes. MUSCULOSKELETAL: No joint effusions. NEUROLOGIC: No change in exam. MEDICATIONS: The patient's medications have been reviewed. Objective Vital Signs Date Time Temp Pulse Resp B/P Pulse Ox O2 Delivery O2 Flow Rate FiO2 07/28/17 11:38 98.7 85 19 145/60 97 07/28/17 11:15 50 07/27/17 18:00 Mechanical Ventilator Intake and Output 07/27/17 07/27/17 07/28/17 15:00 23:00 07:00 Intake Total 960 ml 960 ml Output Total 1000 ml 350 ml Balance -40 ml 610 ml Results/Medications Result Diagram: 07/27/17 0600 07/27/17 0600 Results 24 hrs Laboratory Tests Test 07/28/17 07:00 Blood Gas Specimen Source Blood arterial Arterial Blood Date Drawn 07/28/2017 8:08:33 AM Arterial Blood pH (Temp corrected) 7.466 H Arterial Blood pCO2 (Temp correct) 35.4 Arterial Blood pO2 (Temp corrected) 70.9 L Arterial Blood HCO3 25.0 Arterial Blood Base Excess 1.5 Arterial Blood Oxygen Saturation 94.3 L Brant Test ACCEPTAB Arterial Blood Gas Puncture Site Right Radial Arterial Blood Carboxyhemoglobin 0 Arterial Blood Methemoglobin 0.3 Blood Gas A-a O2 Differential 245.8 H Oxyhemoglobin Percent 94.0 Total Hemoglobin 12.4 Blood Gas Temperature 37.0 Blood Gas Respiration Rate 10.0 Blood Gas Actual Respiration Rate 22 Blood Gas Modality VENT - AC FiO2 50.0 Blood Gas Tidal Volume 450.0 Blood Gas Low PEEP Setting 10.0 Blood Gas Notified Whom AT Blood Gas Notified Time 07/28/2017 8:19:01 AM Medications Current Medications Diltiazem HCl (Cardizem) 60 mg Q6 GTB Last administered on 07/28/17 06:46; Admin Dose 60 MG; Start 07/21/17 at 12:00 Bisacodyl (Dulcolax Supp) 10 mg Q2D [place] Last administered on 07/23/17 09:10; Admin Dose 10 MG; Start 07/21/17 at 09:00 Calcium Carbonate (Oyster Shell Calcium) 1.25 gm BID GTB Last administered on 07/28/17 09:29; Admin Dose 1.25 GM; Start 07/21/17 at 09:00 Chlorhexidine Gluconate (Peridex) 15 ml Q12 MM Last administered on 07/27/17 23:18; Admin Dose 15 ML; Start 07/21/17 at 09:00 Losartan Potassium (Cozaar) 100 mg DAILY GTB Last administered on 07/28/17 09 :28; Admin Dose 100 MG; Start 07/21/17 at 09:00 Magnesium Hydroxide (Milk Of Mag) 30 ml DAILY GTB Last administered on 09:47; Admin Dose 30 ML; Start 07/21/17 at 09:00 Metoprolol Tartrate (Lopressor) 50 mg BID GTB Last administered on 07/28/17 09:29; Admin Dose 50 MG; Start 07/21/17 at 09:00 Ondansetron HCl (Zofran Tab) 4 mg Q6H PRN GTB NAUSEA AND/OR VOMITING; Start at 07:00 Sodium Biphosphate/ Sodium Phosphate (Fleet Enema Pediatric) 66.6 ml Q3D PRN [place] CONSTIPATION; Start 07/21/17 at 07:00 Spironolactone (Aldactone) 25 mg BID GTB Last administered on 07/28/17 09:27 ; Admin Dose 25 MG; Start 07/21/17 at 09:00 Lansoprazole 30 mg 30 mg BID@06,18 GTB Last administered on 07/28/17 06:46; Admin Dose 30 MG; Start 07/21/17 at 09:15 Meropenem/Sodium Chloride (Merrem 500mg/50 ml(Pmx)) 50 ml @ 200 mls/hr Q8 IVPB Last administered on 07/28/17 06:52; Admin Dose 200 MLS/HR; Start 07/23/17 at 14:00 Acetaminophen (Tylenol Liquid) 650 mg Q6H GTB Last administered on 07/28/17 06:46; Admin Dose 650 MG; Start 07/23/17 at 17:30 Apixaban (Eliquis) 2.5 mg BID PO Last administered on 07/28/17 09:27; Admin Dose 2.5 MG; Start 07/24/17 at 21:00 Amantadine HCl (Symmetrel) 100 mg BID GTB Last administered on 07/28/17 09:32 ; Admin Dose 100 MG; Start 07/24/17 at 21:00 Metronidazole (Flagyl) 500 mg Q8 NGT Last administered on 07/28/17 06:45; Admin Dose 500 MG; Start 07/25/17 at 14:30 Hydralazine HCl (Apresoline) 25 mg TID GTB Last administered on 07/27/17 09: 50; Admin Dose 25 MG; Start 07/26/17 at 09:00 Furosemide (Lasix) 40 mg DAILY IV Last administered on 07/28/17 09:27; Admin Dose 40 MG; Start 07/26/17 at 10:00 Digoxin (Digoxin) 0.125 mg DAILY GTB Last administered on 07/28/17 09:28; Admin Dose 0.125 MG; Start 07/27/17 at 09:00 Lorazepam (Ativan) 2 mg Q6H PRN IV AGITATION; Start 07/27/17 at 04:00 Assessment/Plan Chief Complaint/Hosp Course ASSESSMENT AND PLAN: 1. Anemia. Etiology is unclear. The patient is status post blood transfusion. Hemoglobin level has been stable. Continue to monitor. 2. Ventilator dependent respiratory failure. Etiology secondary to pneumonia, possible aspiration. The patient's FIO2 levels remain elevated, but slowly improving. Continue to monitor. Follow up with pulmonary. 3. Dysphagia, status post percutaneous endoscopic gastrostomy tube tube feeding. 4. Hypernatremia. The patient is status post D5 water and increase free water flushes will follow up sodium levels and monitor. 5. Nonoliguric acute kidney injury on top of chronic kidney disease. Etiology secondary to hemodynamics. Continue current treatment plan, supportive care, renally dose all medicines. 6. Hypertension. Continue current blood pressure regimen. We will adjust medications as needed. 7. Mineral bone disorder. Monitor calcium and phosphorus levels. 8. Hyperkalemia, resolved. 9. 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 Continue to monitor. 10. Acute on chronic congestive heart failure exacerbation with systolic, diastolic. The patient is being followed by cardiology. Continue medical management. 11. Urinary tract infection. Continue current antibiotic regimen. 12. Atrial fibrillation, rate controlled. Continue medical management. 13. Hypothyroidism, on Synthroid. 14. DVT and GI prophylaxis. DISPOSITION: A Graff evaluation has been placed, awaiting approval and possible bed availability. Problems: YUMIKO EDWARDS MD Jul 28, 2017 11:51
--- NOTE | 2017-07-28 14:44 | CONS ---
Date/Time of Note Date/Time of Note DATE: 07/28/17 TIME: 14:43 Assessment/Plan Assessment/Plan Additional Assessment/Plan Impression: 1. Anemia: r/o GIB. My ALBERTO do not show melena or hematochezia 2. Atrial fibrillation with RVR 3. dysphagia s/p trach 4. CVA 5. Diarrhea, C. difficile colitis #6 vent dependent respiratory failure Recommendations: 1. monitor h/h and transfuse PRN hgb less than 7 2. f/u stool for occult blood. If positive, consider EGD. Patient had a colonoscopy last month which was grossly negative except for the hemorrhoids 3. increased PPI to bid dosing 4. cardiac eval and would need cardiology clearance before any endoscopic procedure 5. Hematocrit is stable at this point 6. Vancomycin for C. difficile colitis Consultation Date/Type/Reason Admit Date/Time Jul 20, 2017 at 20:47 Initial Consult Date 07/21/17 Type of Consultation: neph 24 HR Interval Summary Subjective hx not possible: pt non-verbal Constitutional: no complaints Exam/Review of Systems Vital Signs Vitals Vital Signs Date Time Temp Pulse Resp B/P Pulse Ox O2 Delivery O2 Flow Rate FiO2 07/28/17 12:29 77 07/28/17 11:38 98.7 19 145/60 97 07/28/17 11:15 50 07/27/17 18:00 Mechanical Ventilator Intake and Output 07/27/17 07/27/17 07/28/17 15:00 23:00 07:00 Intake Total 960 ml 960 ml Output Total 1000 ml 350 ml Balance -40 ml 610 ml Exam Constitutional: alert, oriented, well developed Psych: nl mood/affect, no complaints Head: atraumatic, normocephalic Eyes: EOMI, PERRL, nl conjunctiva, nl lids, nl sclera ENMT: nl external ears & nose, nl lips & teeth, nl nasal mucosa & septum Neck: non-tender, supple Respiratory: clear to auscultation, normal air movement Cardiovascular: nl pulses, regular rate and rhythm Gastrointestinal: nl liver, spleen, non-tender, soft Musculoskeletal: nl extremities to inspection, nl gait and stance Extremities: normal pulses Neurological: [employer] II-XII intact, nl mental status, nl speech, nl strength Skin: nl turgor, No rash or lesions Lymph: nl lymph nodes Results Result Diagram: 07/27/17 0600 07/27/17 0600 Results 24 hrs Laboratory Tests Test 07/28/17 07:00 Blood Gas Specimen Source Blood arterial Arterial Blood Date Drawn 07/28/2017 8:08:33 AM Arterial Blood pH (Temp corrected) 7.466 H Arterial Blood pCO2 (Temp correct) 35.4 Arterial Blood pO2 (Temp corrected) 70.9 L Arterial Blood HCO3 25.0 Arterial Blood Base Excess 1.5 Arterial Blood Oxygen Saturation 94.3 L Brant Test ACCEPTAB Arterial Blood Gas Puncture Site Right Radial Arterial Blood Carboxyhemoglobin 0 Arterial Blood Methemoglobin 0.3 Blood Gas A-a O2 Differential 245.8 H Oxyhemoglobin Percent 94.0 Total Hemoglobin 12.4 Blood Gas Temperature 37.0 Blood Gas Respiration Rate 10.0 Blood Gas Actual Respiration Rate 22 Blood Gas Modality VENT - AC FiO2 50.0 Blood Gas Tidal Volume 450.0 Blood Gas Low PEEP Setting 10.0 Blood Gas Notified Whom AT Blood Gas Notified Time 07/28/2017 8:19:01 AM Medications Medications Current Medications Diltiazem HCl (Cardizem) 60 mg Q6 GTB Last administered on 07/28/17 11:55; Admin Dose 60 MG; Start 07/21/17 at 12:00 Bisacodyl (Dulcolax Supp) 10 mg Q2D [place] Last administered on 07/23/17 09:10; Admin Dose 10 MG; Start 07/21/17 at 09:00 Calcium Carbonate (Oyster Shell Calcium) 1.25 gm BID GTB Last administered on 07/28/17 09:29; Admin Dose 1.25 GM; Start 07/21/17 at 09:00 Chlorhexidine Gluconate (Peridex) 15 ml Q12 MM Last administered on 07/27/17 23:18; Admin Dose 15 ML; Start 07/21/17 at 09:00 Losartan Potassium (Cozaar) 100 mg DAILY GTB Last administered on 07/28/17 09 :28; Admin Dose 100 MG; Start 07/21/17 at 09:00 Magnesium Hydroxide (Milk Of Mag) 30 ml DAILY GTB Last administered on 09:47; Admin Dose 30 ML; Start 07/21/17 at 09:00 Metoprolol Tartrate (Lopressor) 50 mg BID GTB Last administered on 07/28/17 09:29; Admin Dose 50 MG; Start 07/21/17 at 09:00 Ondansetron HCl (Zofran Tab) 4 mg Q6H PRN GTB NAUSEA AND/OR VOMITING; Start at 07:00 Sodium Biphosphate/ Sodium Phosphate (Fleet Enema Pediatric) 66.6 ml Q3D PRN [place] CONSTIPATION; Start 07/21/17 at 07:00 Spironolactone (Aldactone) 25 mg BID GTB Last administered on 07/28/17 09:27 ; Admin Dose 25 MG; Start 07/21/17 at 09:00 Lansoprazole 30 mg 30 mg BID@06,18 GTB Last administered on 07/28/17 06:46; Admin Dose 30 MG; Start 07/21/17 at 09:15 Meropenem/Sodium Chloride (Merrem 500mg/50 ml(Pmx)) 50 ml @ 200 mls/hr Q8 IVPB Last administered on 07/28/17 14:12; Admin Dose 200 MLS/HR; Start 07/23/17 at 14:00 Acetaminophen (Tylenol Liquid) 650 mg Q6H GTB Last administered on 07/28/17 11:55; Admin Dose 650 MG; Start 07/23/17 at 17:30 Apixaban (Eliquis) 2.5 mg BID PO Last administered on 07/28/17 09:27; Admin Dose 2.5 MG; Start 07/24/17 at 21:00 Amantadine HCl (Symmetrel) 100 mg BID GTB Last administered on 07/28/17 09:32 ; Admin Dose 100 MG; Start 07/24/17 at 21:00 Metronidazole (Flagyl) 500 mg Q8 NGT Last administered on 07/28/17 14:12; Admin Dose 500 MG; Start 07/25/17 at 14:30 Hydralazine HCl (Apresoline) 25 mg TID GTB Last administered on 07/28/17 11: 59; Admin Dose 25 MG; Start 07/26/17 at 09:00 Furosemide (Lasix) 40 mg DAILY IV Last administered on 07/28/17 09:27; Admin Dose 40 MG; Start 07/26/17 at 10:00 Digoxin (Digoxin) 0.125 mg DAILY GTB Last administered on 07/28/17 09:28; Admin Dose 0.125 MG; Start 07/27/17 at 09:00 Lorazepam (Ativan) 2 mg Q6H PRN IV AGITATION; Start 07/27/17 at 04:00 MARY PAYNE MD Jul 28, 2017 14:44
--- NOTE | 2017-07-28 19:49 | CONS ---
Date/Time of Note Date/Time of Note DATE: 07/28/17 TIME: 19:48 Assessment/Plan Assessment/Plan Chief Complaint/Hosp Course ID PROGRESS NOTE CURRENT ABX: TOTAL ABX DAY # 8=> Merrem + Flagyl s/p Ceftriaxone 07/21 - 07/23 24H INTERVAL SUMMARY * Clinically status quo -- no new issues overnight 87 yo F -- lethargic, obese, stable * Afebrile today, yesterday TMax 99.7 * 07/28/17 CXR:Patchy bilateral pulmonary air space disease is unchanged. PHYSICAL EXAMINATION: GENERAL: VSS, NAD HEENT: Unremarkable NECK: (+) Trach CHEST: Equal chest rise bilaterally, without dyspnea on observation HEART: Pulse RRR ABDOMEN: Soft/peg EXTREMITIES: Warm SKIN: See hard chart skin assessment ID ASSESSMENT: 87 yo F w/PMHx CVA w/mild dementia, dysphagia, trach admit with: 1. Resolving sepsis 2nd GNR MDRO KP-ESBL UTI + C.Diff colitis + HCAP 2. Healthcare-associated pneumonia. 3. Urinary tract infection.URINE CULTURE Final Organism 1 K PNEUMO ESBL COLONY COUNT >100,000 CFU/ml 4. Clostridium difficile colitis. 5. Chronic respiratory failure. 6. Acute on chronic kidney disease, nephrology follows. 7. Acute Congestive heart failure exacerbation 8. Atrial fibrillation w/Hx of RVR > On Eliquis + Dig + beta parvin 9. Anemia * Hx of remote GIB prior admission: s/p EGD and colonoscopy.- moderate to large hemorrhoids, polyp. Severe gastritis. INVASIVES: PIV, Trach, PEG ABX ALLERGY: None to ABX CURRENT ABX: TOTAL ABX DAY # 8=> Merrem #6 + Flagyl s/p Ceftriaxone 07/21 - 07/23 ID RECOMMENDATIONS: 1. Continue current ABX anticipate 7-10 day course . Problems: Consultation Date/Type/Reason Admit Date/Time Jul 20, 2017 at 20:47 Initial Consult Date 07/21/17 Type of Consultation: ID Exam/Review of Systems Vital Signs Vitals Vital Signs Date Time Temp Pulse Resp B/P Pulse Ox O2 Delivery O2 Flow Rate FiO2 07/28/17 19:30 69 22 96 45 07/28/17 15:36 98.2 140/94 07/27/17 18:00 Mechanical Ventilator Intake and Output 07/27/17 07/27/17 07/28/17 15:00 23:00 07:00 Intake Total 960 ml 960 ml Output Total 1000 ml 350 ml Balance -40 ml 610 ml Results Result Diagram: 07/27/17 0600 07/27/17 0600 Results 24 hrs Laboratory Tests Test 07/28/17 07:00 Blood Gas Specimen Source Blood arterial Arterial Blood Date Drawn 07/28/2017 8:08:33 AM Arterial Blood pH (Temp corrected) 7.466 H Arterial Blood pCO2 (Temp correct) 35.4 Arterial Blood pO2 (Temp corrected) 70.9 L Arterial Blood HCO3 25.0 Arterial Blood Base Excess 1.5 Arterial Blood Oxygen Saturation 94.3 L Brant Test ACCEPTAB Arterial Blood Gas Puncture Site Right Radial Arterial Blood Carboxyhemoglobin 0 Arterial Blood Methemoglobin 0.3 Blood Gas A-a O2 Differential 245.8 H Oxyhemoglobin Percent 94.0 Total Hemoglobin 12.4 Blood Gas Temperature 37.0 Blood Gas Respiration Rate 10.0 Blood Gas Actual Respiration Rate 22 Blood Gas Modality VENT - AC FiO2 50.0 Blood Gas Tidal Volume 450.0 Blood Gas Low PEEP Setting 10.0 Blood Gas Notified Whom AT Blood Gas Notified Time 07/28/2017 8:19:01 AM Medications Medications Current Medications Diltiazem HCl (Cardizem) 60 mg Q6 GTB Last administered on 07/28/17 17:36; Admin Dose 60 MG; Start 07/21/17 at 12:00 Bisacodyl (Dulcolax Supp) 10 mg Q2D [place] Last administered on 07/23/17 09:10; Admin Dose 10 MG; Start 07/21/17 at 09:00 Calcium Carbonate (Oyster Shell Calcium) 1.25 gm BID GTB Last administered on 07/28/17 09:29; Admin Dose 1.25 GM; Start 07/21/17 at 09:00 Chlorhexidine Gluconate (Peridex) 15 ml Q12 MM Last administered on 07/27/17 23:18; Admin Dose 15 ML; Start 07/21/17 at 09:00 Losartan Potassium (Cozaar) 100 mg DAILY GTB Last administered on 07/28/17 09 :28; Admin Dose 100 MG; Start 07/21/17 at 09:00 Magnesium Hydroxide (Milk Of Mag) 30 ml DAILY GTB Last administered on 10/28/ 17at 09:47; Admin Dose 30 ML; Start 07/21/17 at 09:00 Metoprolol Tartrate (Lopressor) 50 mg BID GTB Last administered on 07/28/17 09:29; Admin Dose 50 MG; Start 07/21/17 at 09:00 Ondansetron HCl (Zofran Tab) 4 mg Q6H PRN GTB NAUSEA AND/OR VOMITING; Start at 07:00 Sodium Biphosphate/ Sodium Phosphate (Fleet Enema Pediatric) 66.6 ml Q3D PRN [place] CONSTIPATION; Start 07/21/17 at 07:00 Spironolactone (Aldactone) 25 mg BID GTB Last administered on 07/28/17 09:27 ; Admin Dose 25 MG; Start 07/21/17 at 09:00 Lansoprazole 30 mg 30 mg BID@06,18 GTB Last administered on 07/28/17 17:36; Admin Dose 30 MG; Start 07/21/17 at 09:15 Meropenem/Sodium Chloride (Merrem 500mg/50 ml(Pmx)) 50 ml @ 200 mls/hr Q8 IVPB Last administered on 07/28/17 14:12; Admin Dose 200 MLS/HR; Start 07/23/17 at 14:00 Acetaminophen (Tylenol Liquid) 650 mg Q6H GTB Last administered on 07/28/17 17:35; Admin Dose 650 MG; Start 07/23/17 at 17:30 Apixaban (Eliquis) 2.5 mg BID PO Last administered on 07/28/17 09:27; Admin Dose 2.5 MG; Start 07/24/17 at 21:00 Amantadine HCl (Symmetrel) 100 mg BID GTB Last administered on 07/28/17 09:32 ; Admin Dose 100 MG; Start 07/24/17 at 21:00 Metronidazole (Flagyl) 500 mg Q8 NGT Last administered on 07/28/17 14:12; Admin Dose 500 MG; Start 07/25/17 at 14:30 Hydralazine HCl (Apresoline) 25 mg TID GTB Last administered on 07/28/17 11: 59; Admin Dose 25 MG; Start 07/26/17 at 09:00 Furosemide (Lasix) 40 mg DAILY IV Last administered on 07/28/17 09:27; Admin Dose 40 MG; Start 07/26/17 at 10:00 Digoxin (Digoxin) 0.125 mg DAILY GTB Last administered on 07/28/17 09:28; Admin Dose 0.125 MG; Start 07/27/17 at 09:00 Lorazepam (Ativan) 2 mg Q6H PRN IV AGITATION; Start 07/27/17 at 04:00 SABINO FONTANEZ NP Jul 28, 2017 19:49
[2017-07-29] VITALS (24 sets, daily range): BP systolic 105–185; BP diastolic 55–77; PULSE 51–92; RESP 15–32
[2017-07-29] MEDS: DILTIAZEM 60 MG TAB GTB SCH ×4 (02:01→17:42)
[2017-07-29] MEDS: MEROPENEM 500MG/50 ML (PMX) 50 ML IVPB SCH ×2 (06:59→14:49)
[2017-07-29] MEDS: LANSOPRAZOLE 30 MG CAP GTB SCH ×2 (07:00→17:40)
[2017-07-29] MEDS: ACETAMINOPHEN 650MG/20.3ML CUP GTB SCH ×3 (07:00→17:40)
[2017-07-29] MEDS: LEVOTHYROXINE 125 MCG TAB GTB SCH (07:00)
[2017-07-29] MEDS: metroNIDAZOLE 500 MG TAB NGT SCH ×2 (07:00→13:22)
[2017-07-29] MEDS: SPIRONOLACTONE 25 MG TAB GTB SCH (08:22)
[2017-07-29] MEDS: APIXABAN 5 MG TABLET PO SCH (08:23)
[2017-07-29] MEDS: MAGNESIUM HYDROXIDE 30ML CUP GTB SCH (08:24)
[2017-07-29] MEDS: CHLORHEXIDINE GLUCONATE 15 ML UD CUP MM SCH (08:24)
[2017-07-29] MEDS: CALCIUM CARBONATE 1.25 GM TAB GTB SCH (08:24)
[2017-07-29] MEDS: BISACODYL 10 MG SUPP PR SCH (08:25)
[2017-07-29] MEDS: DIGOXIN 0.125 MG TAB GTB SCH (08:26)
[2017-07-29] MEDS: METOPROLOL 50 MG TAB GTB SCH (08:27)
[2017-07-29] MEDS: LOSARTAN 50 MG TAB GTB SCH (08:28)
[2017-07-29] MEDS: FUROSEMIDE 40 MG INJ IV SCH (08:29)
[2017-07-29] MEDS: AMANTADINE 100 MG/10 ML POSYR GTB SCH (08:50)
--- NOTE | 2017-07-29 10:09 | PN ---
DATE: 07/29/2017 SUBJECTIVE: The patient is stable. No events overnight. No fevers, chills, nausea, vomiting. OBJECTIVE: VITAL SIGNS: Blood pressure is 105/55, respirations 19, pulse 71, temperature 98.5. HEENT: Head is normocephalic. NECK: Supple. HEART: Regular rate. LUNGS: Show diminished breath sounds at base. ABDOMEN: Soft, nontender to palpation. No rebound or guarding. EXTREMITIES: Negative for clubbing, cyanosis. No edema. DERMATOLOGIC: No rashes. MUSCULOSKELETAL: No joint effusions. NEUROLOGIC: No change in exam. MEDICATIONS: The patient's medications have been reviewed. LABORATORY DATA: Shows white count 6.7, hemoglobin 9.2, platelet count 203. BMP within normal limi ts. ASSESSMENT AND PLAN: 1. Anemia, etiology is unclear. The patient is status post blood transfusion. Hemoglobin levels h ave been stable. Continue to monitor. 2. Ventilator dependent respiratory failure. Etiology secondary to pneumonia, aspiration, and poss ible CHF. Patient's FIO2 levels are slowly improving. Continue current treatment plan. Follow up with pulmonary. 3. Dysphagia, status post percutaneous endoscopic gastrostomy tube tube feeding. 4. Hypernatremia, improved. Continue free water flushes. 5. Nonoliguric acute kidney injury on top of chronic kidney disease. Etiology is secondary to hemo dynamics. Renal function is improved. 6. Hypertension. Continue current blood pressure regimen. 7. Mineral bone disorder. Monitor calcium and phosphorus levels. 8. 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 Continue to monitor. 9. Acute congestive heart failure exacerbation, systolic and diastolic. Continue to monitor. Foll ow up with cardiology. 10. Urinary tract infection. Continue current antibiotic regimen. 11. Atrial fibrillation, continue current medical management. 12. Hypothyroidism. Continue Synthroid. 13. Gastrointestinal and deep venous thrombosis prophylaxis. DISPOSITION: Graff evaluation has been placed. Continue to monitor. Dictated By: NIRMALA RODRIGUEZ/TONIO Conf#: [id number] DID#: [id number]
--- NOTE | 2017-07-29 11:48 | CONS ---
Date/Time of Note Date/Time of Note DATE: 07/29/17 TIME: 11:46 Consult Date/Type/Reason Admit Date/Time Jul 20, 2017 at 20:47 Initial Consult Date 07/21/17 Type of Consultation: Pulmonary Subjective Patient transferred to intensive care unit for logistic purposes this morning remained stable from primary standpoint Objective Vital Signs Date Time Temp Pulse Resp B/P Pulse Ox O2 Delivery O2 Flow Rate FiO2 07/29/17 11:12 63 19 97 45 07/29/17 10:00 97.9 137/63 Mechanical Ventilator Intake and Output 07/28/17 07/28/17 07/29/17 15:00 23:00 07:00 Intake Total 100 ml 900 ml 1010 ml Output Total 800 ml 500 ml Balance 100 ml 100 ml 510 ml Exam GENERAL: Elderly appearing lady on mechanical ventilation appears comfortable at rest VITAL SIGNS: per chart NECK: Supple. No JVD or lymphadenopathy. CARDIAC EXAM: S1, S2. No added sounds or murmurs. CHEST: Diminished air entry bilaterally ABDOMEN: Soft, nontender. No guarding or rebound. EXTREMITIES: No cyanosis, clubbing or edema. NEUROLOGIC: Generalized weakness. Results/Medications Result Diagram: 07/29/17 0542 07/29/17 0542 Results 24 hrs Laboratory Tests Test 07/29/17 05:42 White Blood Count 6.7 # Red Blood Count 3.68 L Hemoglobin 11.2 L Hematocrit 35.0 L Mean Corpuscular Volume 95.1 Mean Corpuscular Hemoglobin 30.4 Mean Corpuscular Hemoglobin Concent 32.0 Red Cell Distribution Width 15.9 H Platelet Count 203 Mean Platelet Volume 10.9 H Neutrophils % 66.5 Lymphocytes % 18.8 Monocytes % 7.0 Eosinophils % 6.9 Basophils % 0.4 Nucleated Red Blood Cells % 0.0 Neutrophils # 4.4 Lymphocytes # 1.3 Monocytes # 0.5 Eosinophils # 0.5 Basophils # 0.0 Nucleated Red Blood Cells # 0.0 Sodium Level 137 Potassium Level 3.7 Chloride Level 99 Carbon Dioxide Level 26 Anion Gap 16 Blood Urea Nitrogen 20 Creatinine 0.73 Glucose Level 104 Calcium Level 8.5 Magnesium Level 2.0 Total Bilirubin 0.5 Direct Bilirubin 0.00 Indirect Bilirubin 0.5 Aspartate Amino Transf (AST/SGOT) 22 Alanine Aminotransferase (ALT/SGPT) 38 Alkaline Phosphatase 107 Total Protein 7.2 Albumin 3.5 Globulin 3.70 H Albumin/Globulin Ratio 0.94 Digoxin Level 0.9 L Medications Current Medications Diltiazem HCl (Cardizem) 60 mg Q6 GTB Last administered on 07/29/17 02:01; Admin Dose 60 MG; Start 07/21/17 at 12:00 Bisacodyl (Dulcolax Supp) 10 mg Q2D MD Last administered on 07/29/17 08:25; Admin Dose 10 MG; Start 07/21/17 at 09:00 Calcium Carbonate (Oyster Shell Calcium) 1.25 gm BID GTB Last administered on 07/29/17 08:24; Admin Dose 1.25 GM; Start 07/21/17 at 09:00 Chlorhexidine Gluconate (Peridex) 15 ml Q12 MM Last administered on 07/29/17 08:24; Admin Dose 15 ML; Start 07/21/17 at 09:00 Losartan Potassium (Cozaar) 100 mg DAILY GTB Last administered on 07/29/17 08 :28; Admin Dose 100 MG; Start 07/21/17 at 09:00 Magnesium Hydroxide (Milk Of Mag) 30 ml DAILY GTB Last administered on 08:24; Admin Dose 30 ML; Start 07/21/17 at 09:00 Metoprolol Tartrate (Lopressor) 50 mg BID GTB Last administered on 07/29/17 08:27; Admin Dose 50 MG; Start 07/21/17 at 09:00 Ondansetron HCl (Zofran Tab) 4 mg Q6H PRN GTB NAUSEA AND/OR VOMITING; Start at 07:00 Sodium Biphosphate/ Sodium Phosphate (Fleet Enema Pediatric) 66.6 ml Q3D PRN MD CONSTIPATION; Start 07/21/17 at 07:00 Spironolactone (Aldactone) 25 mg BID GTB Last administered on 07/29/17 08:22 ; Admin Dose 25 MG; Start 07/21/17 at 09:00 Lansoprazole 30 mg 30 mg BID@06,18 GTB Last administered on 07/29/17 07:00; Admin Dose 30 MG; Start 07/21/17 at 09:15 Meropenem/Sodium Chloride (Merrem 500mg/50 ml(Pmx)) 50 ml @ 200 mls/hr Q8 IVPB Last administered on 07/29/17 06:59; Admin Dose 200 MLS/HR; Start 07/23/17 at 14:00 Acetaminophen (Tylenol Liquid) 650 mg Q6H GTB Last administered on 07/29/17 07:00; Admin Dose 650 MG; Start 07/23/17 at 17:30 Apixaban (Eliquis) 2.5 mg BID PO Last administered on 07/29/17 08:23; Admin Dose 2.5 MG; Start 07/24/17 at 21:00 Amantadine HCl (Symmetrel) 100 mg BID GTB Last administered on 07/29/17 08:50 ; Admin Dose 100 MG; Start 07/24/17 at 21:00 Metronidazole (Flagyl) 500 mg Q8 NGT Last administered on 07/29/17 07:00; Admin Dose 500 MG; Start 07/25/17 at 14:30 Hydralazine HCl (Apresoline) 25 mg TID GTB Last administered on 07/29/17 08: 28; Admin Dose 25 MG; Start 07/26/17 at 09:00 Furosemide (Lasix) 40 mg DAILY IV Last administered on 07/29/17 08:29; Admin Dose 40 MG; Start 07/26/17 at 10:00 Digoxin (Digoxin) 0.125 mg DAILY GTB Last administered on 07/29/17 08:26; Admin Dose 0.125 MG; Start 07/27/17 at 09:00 Lorazepam (Ativan) 2 mg Q6H PRN IV AGITATION; Start 07/27/17 at 04:00 Assessment/Plan Chief Complaint/Hosp Course IMP: 1. Anemia 2. VDRF 3. Afib with RVR 4. Resolved renal insufficiency. 5. UTI gram-negative rods 6. Hypoxemia likely secondary to mucous plugging as radiographic improvement noted. Ongoing pulmonary edema also noted. RECS: 1. Continue current antibiotics pending culture results 2. Vent support decrease PEEP and FiO2. 3. BD's 4. Anemia w/u as per GI 5. Diuresis as tolerated. Discussed with primary team discharge planning okay from primary standpoint Problems: MELBA SEVERINO MD, [facility] Jul 29, 2017 11:48
--- NOTE | 2017-07-29 15:09 | CONS ---
Date/Time of Note Date/Time of Note DATE: 07/29/17 TIME: 15:08 Consult Date/Type/Reason Admit Date/Time Jul 20, 2017 at 20:47 Initial Consult Date 07/21/17 Type of Consultation: card Subjective CARDIOLOGY FOLLOW UP NOTE: S: D/W staff and rhythm was reviewed. pt remains in AFIB. HR has been mostly stable pt remains s/p trach on vent. pt remains nonverbal. O: General: s/p trach on vent. HEENT: NC/AT. pupils are equal. round. NECK: s/p trach. . no stridor. CV: irregularly irregular. . systolic murmur; no gallop or rubs. PULM: no wheezing or rhonchi. GI: SOFT, NT, ND, no rebound or guarding . s/p PEG Extremity: trace B/L LE edema. no clubbing. neuro: opens her eye. does not answer questions. Psych: calm and pleasant rectal: deferred Objective Vital Signs Date Time Temp Pulse Resp B/P Pulse Ox O2 Delivery O2 Flow Rate FiO2 07/29/17 14:00 45 07/29/17 13:15 69 32 96 07/29/17 12:00 129/69 Mechanical Ventilator 07/29/17 10:00 97.9 Intake and Output 07/28/17 07/28/17 07/29/17 15:00 23:00 07:00 Intake Total 100 ml 900 ml 1010 ml Output Total 800 ml 500 ml Balance 100 ml 100 ml 510 ml Results/Medications Result Diagram: 07/29/17 0542 07/29/17 0542 Results 24 hrs Laboratory Tests Test 07/29/17 05:42 White Blood Count 6.7 # Red Blood Count 3.68 L Hemoglobin 11.2 L Hematocrit 35.0 L Mean Corpuscular Volume 95.1 Mean Corpuscular Hemoglobin 30.4 Mean Corpuscular Hemoglobin Concent 32.0 Red Cell Distribution Width 15.9 H Platelet Count 203 Mean Platelet Volume 10.9 H Neutrophils % 66.5 Lymphocytes % 18.8 Monocytes % 7.0 Eosinophils % 6.9 Basophils % 0.4 Nucleated Red Blood Cells % 0.0 Neutrophils # 4.4 Lymphocytes # 1.3 Monocytes # 0.5 Eosinophils # 0.5 Basophils # 0.0 Nucleated Red Blood Cells # 0.0 Sodium Level 137 Potassium Level 3.7 Chloride Level 99 Carbon Dioxide Level 26 Anion Gap 16 Blood Urea Nitrogen 20 Creatinine 0.73 Glucose Level 104 Calcium Level 8.5 Magnesium Level 2.0 Total Bilirubin 0.5 Direct Bilirubin 0.00 Indirect Bilirubin 0.5 Aspartate Amino Transf (AST/SGOT) 22 Alanine Aminotransferase (ALT/SGPT) 38 Alkaline Phosphatase 107 Total Protein 7.2 Albumin 3.5 Globulin 3.70 H Albumin/Globulin Ratio 0.94 Digoxin Level 0.9 L Medications Current Medications Diltiazem HCl (Cardizem) 60 mg Q6 GTB Last administered on 07/29/17 13:58; Admin Dose 60 MG; Start 07/21/17 at 12:00 Bisacodyl (Dulcolax Supp) 10 mg Q2D HI Last administered on 07/29/17 08:25; Admin Dose 10 MG; Start 07/21/17 at 09:00 Calcium Carbonate (Oyster Shell Calcium) 1.25 gm BID GTB Last administered on 07/29/17 08:24; Admin Dose 1.25 GM; Start 07/21/17 at 09:00 Chlorhexidine Gluconate (Peridex) 15 ml Q12 MM Last administered on 07/29/17 08:24; Admin Dose 15 ML; Start 07/21/17 at 09:00 Losartan Potassium (Cozaar) 100 mg DAILY GTB Last administered on 07/29/17 08 :28; Admin Dose 100 MG; Start 07/21/17 at 09:00 Magnesium Hydroxide (Milk Of Mag) 30 ml DAILY GTB Last administered on 08:24; Admin Dose 30 ML; Start 07/21/17 at 09:00 Metoprolol Tartrate (Lopressor) 50 mg BID GTB Last administered on 07/29/17 08:27; Admin Dose 50 MG; Start 07/21/17 at 09:00 Ondansetron HCl (Zofran Tab) 4 mg Q6H PRN GTB NAUSEA AND/OR VOMITING; Start at 07:00 Sodium Biphosphate/ Sodium Phosphate (Fleet Enema Pediatric) 66.6 ml Q3D PRN [place] CONSTIPATION; Start 07/21/17 at 07:00 Spironolactone (Aldactone) 25 mg BID GTB Last administered on 07/29/17 08:22 ; Admin Dose 25 MG; Start 07/21/17 at 09:00 Lansoprazole 30 mg 30 mg BID@06,18 GTB Last administered on 07/29/17 07:00; Admin Dose 30 MG; Start 07/21/17 at 09:15 Meropenem/Sodium Chloride (Merrem 500mg/50 ml(Pmx)) 50 ml @ 200 mls/hr Q8 IVPB Last administered on 07/29/17 14:49; Admin Dose 200 MLS/HR; Start 07/23/17 at 14:00 Acetaminophen (Tylenol Liquid) 650 mg Q6H GTB Last administered on 07/29/17 12:13; Admin Dose 650 MG; Start 07/23/17 at 17:30 Apixaban (Eliquis) 2.5 mg BID PO Last administered on 07/29/17 08:23; Admin Dose 2.5 MG; Start 07/24/17 at 21:00 Amantadine HCl (Symmetrel) 100 mg BID GTB Last administered on 07/29/17 08:50 ; Admin Dose 100 MG; Start 07/24/17 at 21:00 Metronidazole (Flagyl) 500 mg Q8 NGT Last administered on 07/29/17 13:22; Admin Dose 500 MG; Start 07/25/17 at 14:30 Hydralazine HCl (Apresoline) 25 mg TID GTB Last administered on 07/29/17 13: 22; Admin Dose 25 MG; Start 07/26/17 at 09:00 Furosemide (Lasix) 40 mg DAILY IV Last administered on 07/29/17 08:29; Admin Dose 40 MG; Start 07/26/17 at 10:00 Digoxin (Digoxin) 0.125 mg DAILY GTB Last administered on 07/29/17 08:26; Admin Dose 0.125 MG; Start 07/27/17 at 09:00 Lorazepam (Ativan) 2 mg Q6H PRN IV AGITATION; Start 07/27/17 at 04:00 Assessment/Plan Chief Complaint/Hosp Course 1. anemia: ? Gastrointestinal bleed. stable now. - Follow-up with GI rec. 2. Afib: ON HR control cont betablocker and cardizem. cont dig and will check level intermittently back on eliquis now 4. Ventilator dependent respiratory failure. cont resp care. f/u with pulm 5. Dysphagia status post PEG. 6. HTN: cont betablocker, hydralazine cardizem cont aldactone lasix 7. Congestive heart failure/. fluid overload cont ARB cont LASIX 8. 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 Continue to monitor. 9. History of cerebrovascular accident. Continue medical management. 10. hypo K: will replace prn Thank you LETICIA MCWILLIAMS MD [facility] Problems: LETICIA MCWILLIAMS MD Jul 29, 2017 15:09
--- NOTE | 2017-07-29 18:17 | CONS ---
Date/Time of Note Date/Time of Note DATE: 07/29/17 TIME: 18:17 Assessment/Plan Assessment/Plan Additional Assessment/Plan Impression: 1. Anemia: r/o GIB. My ALBERTO do not show melena or hematochezia 2. Atrial fibrillation with RVR 3. dysphagia s/p trach 4. CVA 5. Diarrhea, C. difficile colitis #6 vent dependent respiratory failure Recommendations: 1. monitor h/h and transfuse PRN hgb less than 7 2. f/u stool for occult blood. If positive, consider EGD. Patient had a colonoscopy last month which was grossly negative except for the hemorrhoids 3. increased PPI to bid dosing 4. cardiac eval and would need cardiology clearance before any endoscopic procedure 5. Hematocrit is stable at this point 6. Vancomycin for C. difficile colitis Consultation Date/Type/Reason Admit Date/Time Jul 20, 2017 at 20:47 Initial Consult Date 07/21/17 Type of Consultation: card 24 HR Interval Summary Subjective hx not possible: pt non-verbal Exam/Review of Systems Vital Signs Vitals Vital Signs Date Time Temp Pulse Resp B/P Pulse Ox O2 Delivery O2 Flow Rate FiO2 07/29/17 17:31 66 19 97 45 07/29/17 15:00 121/75 Mechanical Ventilator 07/29/17 10:00 97.9 Intake and Output 07/28/17 07/28/17 07/29/17 15:00 23:00 07:00 Intake Total 100 ml 900 ml 1010 ml Output Total 800 ml 500 ml Balance 100 ml 100 ml 510 ml Exam Constitutional: alert, oriented, well developed Psych: nl mood/affect, no complaints Head: atraumatic, normocephalic Eyes: EOMI, PERRL, nl conjunctiva, nl lids, nl sclera ENMT: nl external ears & nose, nl lips & teeth, nl nasal mucosa & septum Neck: non-tender, supple Respiratory: clear to auscultation, normal air movement Cardiovascular: nl pulses, regular rate and rhythm Gastrointestinal: nl liver, spleen, non-tender, soft Musculoskeletal: nl extremities to inspection, nl gait and stance Extremities: normal pulses Neurological: SERVICE SUPERINTENDENT II-XII intact, nl mental status, nl speech, nl strength Skin: nl turgor, No rash or lesions Lymph: nl lymph nodes Results Result Diagram: 10/30/17 0542 10/30/17 0542 Results 24 hrs Laboratory Tests Test 07/29/17 05:42 White Blood Count 6.7 # Red Blood Count 3.68 L Hemoglobin 11.2 L Hematocrit 35.0 L Mean Corpuscular Volume 95.1 Mean Corpuscular Hemoglobin 30.4 Mean Corpuscular Hemoglobin Concent 32.0 Red Cell Distribution Width 15.9 H Platelet Count 203 Mean Platelet Volume 10.9 H Neutrophils % 66.5 Lymphocytes % 18.8 Monocytes % 7.0 Eosinophils % 6.9 Basophils % 0.4 Nucleated Red Blood Cells % 0.0 Neutrophils # 4.4 Lymphocytes # 1.3 Monocytes # 0.5 Eosinophils # 0.5 Basophils # 0.0 Nucleated Red Blood Cells # 0.0 Sodium Level 137 Potassium Level 3.7 Chloride Level 99 Carbon Dioxide Level 26 Anion Gap 16 Blood Urea Nitrogen 20 Creatinine 0.73 Glucose Level 104 Calcium Level 8.5 Magnesium Level 2.0 Total Bilirubin 0.5 Direct Bilirubin 0.00 Indirect Bilirubin 0.5 Aspartate Amino Transf (AST/SGOT) 22 Alanine Aminotransferase (ALT/SGPT) 38 Alkaline Phosphatase 107 Total Protein 7.2 Albumin 3.5 Globulin 3.70 H Albumin/Globulin Ratio 0.94 Digoxin Level 0.9 L Medications Medications Current Medications Diltiazem HCl (Cardizem) 60 mg Q6 GTB Last administered on 07/29/17 17:42; Admin Dose 60 MG; Start 07/21/17 at 12:00 Bisacodyl (Dulcolax Supp) 10 mg Q2D GA Last administered on 07/29/17 08:25; Admin Dose 10 MG; Start 07/21/17 at 09:00 Calcium Carbonate (Oyster Shell Calcium) 1.25 gm BID GTB Last administered on 07/29/17 08:24; Admin Dose 1.25 GM; Start 07/21/17 at 09:00 Chlorhexidine Gluconate (Peridex) 15 ml Q12 MM Last administered on 07/29/17 08:24; Admin Dose 15 ML; Start 07/21/17 at 09:00 Losartan Potassium (Cozaar) 100 mg DAILY GTB Last administered on 07/29/17 08 :28; Admin Dose 100 MG; Start 07/21/17 at 09:00 Magnesium Hydroxide (Milk Of Mag) 30 ml DAILY GTB Last administered on 08:24; Admin Dose 30 ML; Start 07/21/17 at 09:00 Metoprolol Tartrate (Lopressor) 50 mg BID GTB Last administered on 07/29/17 08:27; Admin Dose 50 MG; Start 07/21/17 at 09:00 Ondansetron HCl (Zofran Tab) 4 mg Q6H PRN GTB NAUSEA AND/OR VOMITING; Start at 07:00 Sodium Biphosphate/ Sodium Phosphate (Fleet Enema Pediatric) 66.6 ml Q3D PRN GA CONSTIPATION; Start 07/21/17 at 07:00 Spironolactone (Aldactone) 25 mg BID GTB Last administered on 07/29/17 08:22 ; Admin Dose 25 MG; Start 07/21/17 at 09:00 Lansoprazole 30 mg 30 mg BID@06,18 GTB Last administered on 07/29/17 17:40; Admin Dose 30 MG; Start 07/21/17 at 09:15 Meropenem/Sodium Chloride (Merrem 500mg/50 ml(Pmx)) 50 ml @ 200 mls/hr Q8 IVPB Last administered on 07/29/17 14:49; Admin Dose 200 MLS/HR; Start 07/23/17 at 14:00 Acetaminophen (Tylenol Liquid) 650 mg Q6H GTB Last administered on 07/29/17 17:40; Admin Dose 650 MG; Start 07/23/17 at 17:30 Apixaban (Eliquis) 2.5 mg BID PO Last administered on 07/29/17 08:23; Admin Dose 2.5 MG; Start 07/24/17 at 21:00 Amantadine HCl (Symmetrel) 100 mg BID GTB Last administered on 07/29/17 08:50 ; Admin Dose 100 MG; Start 07/24/17 at 21:00 Metronidazole (Flagyl) 500 mg Q8 NGT Last administered on 07/29/17 13:22; Admin Dose 500 MG; Start 07/25/17 at 14:30 Hydralazine HCl (Apresoline) 25 mg TID GTB Last administered on 07/29/17 13: 22; Admin Dose 25 MG; Start 07/26/17 at 09:00 Furosemide (Lasix) 40 mg DAILY IV Last administered on 07/29/17 08:29; Admin Dose 40 MG; Start 07/26/17 at 10:00 Digoxin (Digoxin) 0.125 mg DAILY GTB Last administered on 07/29/17 08:26; Admin Dose 0.125 MG; Start 07/27/17 at 09:00 Lorazepam (Ativan) 2 mg Q6H PRN IV AGITATION; Start 07/27/17 at 04:00 MARY PAYNE MD Jul 29, 2017 18:17
--- NOTE | 2017-07-30 06:41 | PN ---
DATE: 07/29/2017 SUBJECTIVE: No events overnight. The patient is lying comfortably in bed, afebrile. LABORATORY DATA: WBC today 6.7, H and H 11.7 and 35, platelets 203, neutrophils 66.5, BUN 20, creat inine 0.73. INDWELLINGS: Trach, PEG, Lazar. ANTIMICROBIALS: The patient is on Flagyl and meropenem. PHYSICAL EXAMINATION: GENERAL: This is a chronically ill-appearing, elderly woman who is lethargic, in no distress. HEENT: Head atraumatic, normocephalic. Sclerae anicteric. Buccal mucosa dry. NECK: Supple. Tracheostomy present. CHEST: Rise symmetrical. Breath sounds diminished to bases. HEART: S1, S2. ABDOMEN: Soft, bowel tones present. EXTREMITIES: Without cyanosis. ASSESSMENT: 1. Resolving sepsis. 2. Clostridium difficile colitis. 3. Healthcare-associated pneumonia. 4. Klebsiella pneumoniae urinary tract infection. 5. Chronic respiratory failure. 6. Atrial fibrillation, status post rapid ventricular response on admission. 7. Anemia. PLAN: Patient remains stable. Continue present care, antibiotics. Follow chest x-ray and pulmonar y and gastroenterology recommendations. Dictated By: NIKOLAS WATTS POULTRY FARM WORKER for [employer]/TONIO Conf#: [id number] DID#: [id number]
--- NOTE | 2017-07-30 06:41 | PN ---
DATE: 07/29/2017 SUBJECTIVE: No events overnight. The patient is lying comfortably in bed, afebrile. LABORATORY DATA: WBC today 6.7, H and H 11.7 and 35, platelets 203, neutrophils 66.5, BUN 20, creat inine 0.73. INDWELLINGS: Trach, PEG, Lazar. ANTIMICROBIALS: The patient is on Flagyl and meropenem. PHYSICAL EXAMINATION: GENERAL: This is a chronically ill-appearing, elderly woman who is lethargic, in no distress. HEENT: Head atraumatic, normocephalic. Sclerae anicteric. Buccal mucosa dry. NECK: Supple. Tracheostomy present. CHEST: Rise symmetrical. Breath sounds diminished to bases. HEART: S1, S2. ABDOMEN: Soft, bowel tones present. EXTREMITIES: Without cyanosis. ASSESSMENT: 1. Resolving sepsis. 2. Clostridium difficile colitis. 3. Healthcare-associated pneumonia. 4. Klebsiella pneumoniae urinary tract infection. 5. Chronic respiratory failure. 6. Atrial fibrillation, status post rapid ventricular response on admission. 7. Anemia. PLAN: Patient remains stable. Continue present care, antibiotics. Follow chest x-ray and pulmonar y and gastroenterology recommendations. Dictated By: NIKOLAS WATTS THEATER MANAGER for [employer]/TONIO Conf#: [id number] DID#: [id number]
--- NOTE | 2017-07-30 06:41 | PN ---
DATE: 07/29/2017 SUBJECTIVE: No events overnight. The patient is lying comfortably in bed, afebrile. LABORATORY DATA: WBC today 6.7, H and H 11.7 and 35, platelets 203, neutrophils 66.5, BUN 20, creat inine 0.73. INDWELLINGS: Trach, PEG, Lazar. ANTIMICROBIALS: The patient is on Flagyl and meropenem. PHYSICAL EXAMINATION: GENERAL: This is a chronically ill-appearing, elderly woman who is lethargic, in no distress. HEENT: Head atraumatic, normocephalic. Sclerae anicteric. Buccal mucosa dry. NECK: Supple. Tracheostomy present. CHEST: Rise symmetrical. Breath sounds diminished to bases. HEART: S1, S2. ABDOMEN: Soft, bowel tones present. EXTREMITIES: Without cyanosis. ASSESSMENT: 1. Resolving sepsis. 2. Clostridium difficile colitis. 3. Healthcare-associated pneumonia. 4. Klebsiella pneumoniae urinary tract infection. 5. Chronic respiratory failure. 6. Atrial fibrillation, status post rapid ventricular response on admission. 7. Anemia. PLAN: Patient remains stable. Continue present care, antibiotics. Follow chest x-ray and pulmonar y and gastroenterology recommendations. Dictated By: NIKOLAS WATTS SWITCHBOARD AND CONTROL ROOM OPERATOR for [employer]/TONIO Conf#: [id number] DID#: [id number]
--- NOTE | 2017-08-04 01:29 | DS ---
DATE OF ADMISSION: 07/20/2017 DATE OF DISCHARGE: 07/29/2017 HOSPITAL COURSE: This is an 87-year-old female with a past medical history of ventilator-dependent respiratory failure, history of dysphagia, history of chronic encephalopathy, history of A-fib, CVA, hypothyroidism, who presented to [facility] from a half-way facility due t o abnormal labs. The patient was noted to be severely anemic with a hemoglobin of 7. Upon arrival to [facility], she had a hemoglobin of 7.8. The patient also noted to have a UTI. The patient was admitted to telemetry, typed and crossed and transfused 2 units of PRBC. The silvia ent was started on IV antibiotics. During the hospital stay, the patient went into more respiratory distress requiring higher FiO2 levels. The patient's repeat x-ray shows pneumonia which may or may not have been present on admission. Given these findings, a recommendation was made for the keara t to go to [facility] for continued care. The patient was then subsequently transfer red to [facility]. FINAL DIAGNOSES: 1. Anemia status post blood transfusion. 2. Ventilator-dependent respiratory failure. 3. Dysphagia. 4. Hyponatremia. 5. Nonoliguric acute kidney injury. 6. Hypertension. 7. Mineral bone disorder. 8. Acute congestive heart failure exacerbation. 9. Chronic encephalopathy. 10. Urinary tract infection. 11. Pneumonia. 12. Atrial fibrillation. 13. Hypothyroidism. FINAL MEDICATIONS: See reconciliation list. CONDITION ON DISCHARGE: At the time of discharge, the patient is stable, no acute distress. Dictated By: NIRMALA RODRIGUEZ/TONIO Conf#: [id number] DID#: [id number]
--- NOTE | 2017-08-04 01:29 | DS ---
DATE OF ADMISSION: 07/20/2017 DATE OF DISCHARGE: 07/29/2017 HOSPITAL COURSE: This is an 87-year-old female with a past medical history of ventilator-dependent respiratory failure, history of dysphagia, history of chronic encephalopathy, history of A-fib, CVA, hypothyroidism, who presented to [facility] from a long term facility due t o abnormal labs. The patient was noted to be severely anemic with a hemoglobin of 7. Upon arrival to [facility], she had a hemoglobin of 7.8. The patient also noted to have a UTI. The patient was admitted to telemetry, typed and crossed and transfused 2 units of PRBC. The silvia ent was started on IV antibiotics. During the hospital stay, the patient went into more respiratory distress requiring higher FiO2 levels. The patient's repeat x-ray shows pneumonia which may or may not have been present on admission. Given these findings, a recommendation was made for the keara t to go to [facility] for continued care. The patient was then subsequently transfer red to [facility]. FINAL DIAGNOSES: 1. Anemia status post blood transfusion. 2. Ventilator-dependent respiratory failure. 3. Dysphagia. 4. Hyponatremia. 5. Nonoliguric acute kidney injury. 6. Hypertension. 7. Mineral bone disorder. 8. Acute congestive heart failure exacerbation. 9. Chronic encephalopathy. 10. Urinary tract infection. 11. Pneumonia. 12. Atrial fibrillation. 13. Hypothyroidism. FINAL MEDICATIONS: See reconciliation list. CONDITION ON DISCHARGE: At the time of discharge, the patient is stable, no acute distress. Dictated By: NIRMALA RODRIGUEZ/TONIO Conf#: [id number] DID#: [id number]
--- NOTE | 2017-08-04 01:29 | DS ---
DATE OF ADMISSION: 07/20/2017 DATE OF DISCHARGE: 07/29/2017 HOSPITAL COURSE: This is an 87-year-old female with a past medical history of ventilator-dependent respiratory failure, history of dysphagia, history of chronic encephalopathy, history of A-fib, CVA, hypothyroidism, who presented to [facility] from a [facility] facility due t o abnormal labs. The patient was noted to be severely anemic with a hemoglobin of 7. Upon arrival to [facility], she had a hemoglobin of 7.8. The patient also noted to have a UTI. The patient was admitted to telemetry, typed and crossed and transfused 2 units of PRBC. The silvia ent was started on IV antibiotics. During the hospital stay, the patient went into more respiratory distress requiring higher FiO2 levels. The patient's repeat x-ray shows pneumonia which may or may not have been present on admission. Given these findings, a recommendation was made for the keara t to go to [facility] for continued care. The patient was then subsequently transfer red to [place] [facility]. FINAL DIAGNOSES: 1. Anemia status post blood transfusion. 2. Ventilator-dependent respiratory failure. 3. Dysphagia. 4. Hyponatremia. 5. Nonoliguric acute kidney injury. 6. Hypertension. 7. Mineral bone disorder. 8. Acute congestive heart failure exacerbation. 9. Chronic encephalopathy. 10. Urinary tract infection. 11. Pneumonia. 12. Atrial fibrillation. 13. Hypothyroidism. FINAL MEDICATIONS: See reconciliation list. CONDITION ON DISCHARGE: At the time of discharge, the patient is stable, no acute distress. Dictated By: NIRMALA RODRIGUEZ/TONIO Conf#: [id number] DID#: [id number]
== END 2017-07-29 20:35 | DRG 811 ==
LOC: E/R 18:36 → ICU 20:47 → TEL 07-22 22:52 → ICU 07-29 11:08
PROVIDERS: ADMIT Internal Medicine; ATTEND Internal Medicine
PROC: 30233N1 Transfusion of Nonautologous Red Blood Cells into Peripheral Vein, Percutaneous Approach (ICD-10-PCS; 2017-07-20)
PROC: 5A1955Z Respiratory Ventilation, Greater than 96 Consecutive Hours (ICD-10-PCS; principal; 2017-07-21)
DX: D64.89 Other specified anemias (principal); I50.43 Acute on chronic combined systolic (congestive) and diastolic (congestive) heart failure; G93.49 Other encephalopathy; Z99.11 Dependence on respirator [ventilator] status; J18.9 Pneumonia, unspecified organism; G93.1 Anoxic brain damage, not elsewhere classified; N17.9 Acute kidney failure, unspecified; J96.10 Chronic respiratory failure, unspecified whether with hypoxia or hypercapnia; K92.2 Gastrointestinal hemorrhage, unspecified; E87.0 Hyperosmolality and hypernatremia; N30.00 Acute cystitis without hematuria; I13.0 Hypertensive heart and chronic kidney disease with heart failure and stage 1 through stage 4 chronic kidney disease, or unspecified chronic kidney disease; A04.72 Enterocolitis due to Clostridium difficile, not specified as recurrent; I48.91 Unspecified atrial fibrillation; Z93.0 Tracheostomy status; Z86.73 Personal history of transient ischemic attack (TIA), and cerebral infarction without residual deficits; Z93.1 Gastrostomy status; I12.9 Hypertensive chronic kidney disease with stage 1 through stage 4 chronic kidney disease, or unspecified chronic kidney disease; N18.9 Chronic kidney disease, unspecified; E87.6 Hypokalemia; B96.1 Klebsiella pneumoniae [K. pneumoniae] as the cause of diseases classified elsewhere; Z16.12 Extended spectrum beta lactamase (ESBL) resistance; Z16.35 Resistance to multiple antimicrobial drugs; R09.02 Hypoxemia
CPT/HCPCS: 36430; 36600; 71010; 80048; 80053; 80162; 81001; 82270; 82728; 82803; 83540; 83605; 83690; 83735; 84100; 84484; 85025; 85610; 85730; 86850; 86900; 86901; 86920; 87075; 87081; 87086; 93005; 94002; 94003; 94640; G9033; J0692; J0696; J1940; J2185; J7040; J7070; P9016

== ENCOUNTER 2018-02-19 11:39 | Day surgery (SDC) | END 2018-02-19 15:32 | disposition home or self-care (01) ==